=== PATIENT | female | born 1955 | race Caucasian/White ===

== ENCOUNTER 2017-04-11 16:12 | Inpatient (IN) | payer OTHER, SELFPAY ==
[2017-04-11] VITALS (12 sets, daily range): BP systolic 158–187; BP diastolic 78–101; PULSE 72–99; RESP 9–21; TEMP 36.7–36.8; O2SAT 88–98; BMI 42.1
--- NOTE | 2017-04-11 16:35 | RAD_ITS ---
STUDY: X-RAY CHEST REASON FOR EXAM: Female, 62 years old. SOB/DYSPNEA; COPD; H/O PLEURISY, PNEUMONIA MULTIPLE TIMES TECHNIQUE: PA and lateral views of the chest. COMPARISON: January 18, 2016 FINDINGS: The lungs are clear and expanded. There is no demonstrated pleural abnormality. Normal size heart. Normal mediastinum and giorgio. Normal visualized pulmonary arteries. Normal visualized aortic arch and descending thoracic aorta. Normal visualized thoracic spine. Normal visualized ribs, clavicles, and shoulders. There is no demonstrated abnormality of the visualized soft tissue structures of the upper abdomen. RAD/Chest PA and Lateral IMPRESSION: Normal x-ray examination of the chest. Electronically Signed: Nelda Palacios MD at 17:20 EST Tel , Service support ,
--- NOTE | 2017-04-11 17:38 | EKG12_ITS ---
Test Reason : SOB Blood Pressure : / mmHG Vent. Rate : 072 BPM Atrial Rate : 072 BPM P-R Int : 148 ms QRS Dur : 090 ms QT Int : 422 ms P-R-T Axes : 064 063 075 degrees QTc Int : 462 ms Normal sinus rhythm Normal ECG Confirmed by BARBIE FERNANDES, PATRICIA ([id number]), manuscript editor MARIA DE JESUS GIL ([id number] on 04/16/2017 2:23:20 PM Referred By: DARCY Confirmed By:PATRICIA VALENTIN MD
--- NOTE | 2017-04-11 17:44 | ED.DCSUM_ITS ---
- ER Visit Summary Date of Service: 04/11/17 Chief Complaint: Shortness of breath History of Present Illness: The patient is a 62 F who presents with shortness of breath that has been getting gradually worse over the past week. Patient states she has been coughing up some white sputum. Patient states she had a prior prescription for Bactrim with a refill. Patient states she started taking the Bactrim but has not noticed any improvement. Patient states her breathing is worse with any activity. Patient states she can walk approximately 15 feet before she becomes short of breath. Patient denies any chest pain. Patient admits to some rhinorrhea and sore throat. Patient also admits to some postnasal drainage. Patient admits to subjective fever at home but denies any chills. Physical Examination: Vital signs are stable. Patient is afebrile. Patient is in no acute distress. Oral mucosa is pink and moist. Neck is supple. Trachea is midline. Heart was regular rate and rhythm. Lungs showed diffuse expiratory wheezing. There is good respiratory effort noted. There are no retractions noted. Abdomen is soft. Bowel sounds are normal. There is no tenderness noted. Cranial nerves II through XII are intact. There are no focal motor or sensory deficits noted. There is no calf tenderness or swelling. Pedal pulses are equal bilaterally. Test Results: PA and lateral chest x-ray was obtained. There is no acute cardiopulmonary process. D-dimer was obtained and was elevated. CTA of the chest was obtained. There is no evidence of pulmonary embolism or aortic dissection. EKG showed normal sinus rhythm with a rate of 72. There are no acute ST or T-wave changes. Emergency Department Course and Treatment: She was given a DuoNeb here. Patient states she still felt short of breath while walking to the bathroom. Patient was given a repeat albuterol aerosol here. Patient was given a dose of prednisone. Case was discussed with Dr. Terrell. He will admit the patient to his service. Patient understood and was agreeable with the plan. All questions were answered. Disposition: Admit Impression: COPD exacerbation This note was generated with [employer] dictation software. It may contain incorrect words, spelling, and punctuation that were not noted in review of the chart prior to signing ED Disposition - Plan for ED Patient: Disposition: Acute Care Hospital [facility] Chief Complaint: Shortness of Breath Diagnosis: COPD exacerbation Referrals: Delta Mane MD [Primary Care Provider] -
[2017-04-11 18:01] LABS: Absolute Lymphocyte Count 1.08 X10^3/ul (0.83-4.51); Absolute Neutrophil Count 4.5 X10^3/uL (2.0-7.7); Basophil# 0.01 X10^3/uL; Basophil% 0.2 % (0-1); Eosinophil# 0.16 X10^3/uL; Eosinophils% 2.6 % (0-5); Hematocrit 44.9 % (37-47); Hemoglobin 14.8 g/dl (12.0-15.0); Lymphocyte # 1.08 X10^3/ul (4.0); Lymphocyte % 17.7 % (19-41); Mean Corpuscular Hgb 28.6 pg (27.0-32.0); Mean Corpuscular Volume 86.8 fL (81-99); Mean Platelet Vol. 10.1 fl (6.2-12.0); Monocyte# 0.35 X10^3/uL; Monocyte% 5.7 % (0-10); Neutrophil # 4.47 X10^3/uL (2.7-7.7); Neutrophil % 73.5 % (47-70); Platelet Count 264 K/mm3 (150-450); RBC Distribution Width CV 13.7 % (11.6-14.6); RBC Distribution Width SD 43.6 fl (35.1-43.9); Red Blood Count 5.17 M/mm3 (4.2-5.4); White Blood Count 6.1 K/mm3 (4.4-11.0)
[2017-04-11 18:04] LABS: D-Dimer Quantitative (DVT/PE) 0.85 FEU/ug/m (0.27-0.49)
[2017-04-11] MEDS: Ipratropium/Albuterol Sulfate 3 ML AMPUL.NEB INHALATION (18:06)
--- NOTE | 2017-04-11 18:10 | NURSING ---
PER LAB DDIMER 0.85, DR IGLESIAS AWARE.
[2017-04-11 18:17] LABS: Anion Gap 8 (5-15); BUN 16 mg/dL (7-18); Calcium,Total 8.3 mg/dL (8.5-10.1); Chloride 100 mmol/L (98-107); Creatinine, Serum 1.07 mg/dL (0.55-1.02); EST Glomerular Filtration Rate 55 mL/min (>60); Est Glom Filt Rate - Afr Amer 67 mL/min (>60); Estimated Creatinine Clearance 50.38 ml/min; Glucose 119 mg/dL (74-106); Potassium 3.9 mmol/L (3.5-5.1); Sodium Level 133 mmol/L (136-145)
[2017-04-11 18:22] LABS: POSITIVE COUNT NO; POSITIVE DIFFERENTIAL NO; POSITIVE MORPHOLOGY NO
--- NOTE | 2017-04-11 19:48 | CT_ITS ---
STUDY: CTA CHEST REASON FOR EXAM: Female, 62 years old. SOB, COUGH, ELEV DDIMER RADIATION DOSAGE (If Supplied By Facility): CTDIvol = ( 16.15 ) mGy, DLP = ( 748.65 ) mGycm TECHNIQUE: The examination was performed with the intravenous administration of 100ML ml of Isovue 370 contrast material. Post-processing of the angiographic images was performed, with multiplanar reformation and 3D reconstruction. Individualized dose optimization techniques were used for this CT. COMPARISON: CTA chest July 08, 2015, x-ray chest April 11, 2017 FINDINGS: Normal enhancement of the main pulmonary artery and right and left pulmonary arteries. Normal enhancement of the bilateral peripheral pulmonary arteries. There is no demonstrated pulmonary embolism. Normal thoracic aorta and visualized great vessels. There is minimal atherosclerotic plaque seen in association with the aortic arch. There is no demonstrated aortic dissection. Normal heart and pericardium. Normal mediastinum. Normal hilar regions. Normal visualized trachea and bronchi. There is centrilobular emphysema of a moderately severe degree. No focal superimposed infiltrate. Normal pleura. Normal chest wall structures. There are degenerative changes of thoracic spine. Normal visualized upper abdomen. There does appear small Bochdalek hernia on the right into which retroperitoneal fat extends into the inferior right costophrenic angle. CT/CTA Chest W/WO Contrast IMPRESSION: No demonstrated pulmonary embolism or arterial dissection. Emphysema noted. Electronically Signed: Nelda Palacios MD at 22:14 EST Tel , Service support ,
[2017-04-11] MEDS: 0.9% Normal Saline 1,000 ML 1000 ML IV (19:57)
[2017-04-11] MEDS: HYDROcodone Bitartrate/Apap 5/325 Tablet PO (20:02)
[2017-04-11] MEDS: Albuterol 2.5 MG/3 ML VIAL.NEB. INHALATION (23:55)
[2017-04-12] VITALS (14 sets, daily range): BP systolic 141–182; BP diastolic 73–103; PULSE 69–99; RESP 16–24; TEMP 36.5–36.7; O2SAT 94–96; BMI 40.5; BMI 40.6
--- NOTE | 2017-04-12 00:12 | PCM.HP.STD ---
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 (3) Rheumatoid arthritis Status: Chronic (4) COPD (chronic obstructive pulmonary disease) Status: Chronic History of Present Illness Date of Admission: 04/12/17 Chief Complaint: Shortness of breath, wheezing. The patient is a 62 year old F with past medical history as mentioned above presented to the emergency department because of shortness of breath and wheezing of 1 week duration. Her symptoms started around 1 week ago with shortness of breath at rest, progressive, aggravated by activity, associated with wheezing and productive cough with clear sputum and without significant relieving factors. Her symptoms continued to worsen over the last few days. She reported mild sore throat. Denies fever chills. She denied chest pain, palpitation, dizziness or lightheadedness. In the emergency room, her blood pressure was slightly elevated, afebrile, pulse ox was 88% on room air which improved to 94% on 2.5 L. Her routine blood work was remarkable for mild hyponatremia, otherwise normal. Troponin is negative. Chest x-ray showed no acute infiltrate, consolidation or effusion. D-dimer was elevated for which CTA chest done and showed no evidence of PE or dissection, no infiltrate. Patient received oral prednisone, DuoNeb and albuterol inhalation in the ER and she remained short of breath with audible wheezing and hypoxia. She is being admitted for COPD exacerbation with hypoxia. Past Medical History Past Medical History (Chronic Problems): Chronic Problems DVT (deep venous thrombosis) (Chronic) 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 Rheumatoid arthritis (Chronic) COPD (chronic obstructive pulmonary disease) (Chronic) [facility] Allergy (Verified 04/11/17 16:17) Itching Home Medications: Ambulatory Orders Medication Instructions Recorded Hydrocodone Bitart/Apap 5-325 1 tablet PO Q6H PRN PRN 07/08/15 [Kerby 5/325] Naproxen Sodium [Aleve] 440 mg PO Q12H PRN PRN 07/08/15 Albuterol Inhaler [Ventolin Hfa] 2 puff INHALATION Q4H PRN PRN #3 01/21/16 inhaler Cetirizine HCl [Zyrtec] 10 mg PO DAILY 04/11/17 Levothyroxine Sodium 25 mcg PO DAILY 04/11/17 Surgical History: appendectomy, tonsillectomy, - - section, surgery for anal cancer. 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 Review of Systems Constitutional: Denies: Anorexia, Chills, Fever, Weakness Eyes: Denies: Blurred vision, Double vision, Drainage, Redness HEENT: Reports: Sore Throat. Denies: Difficulty Hearing, Ear Pain, Eye Pain, Nasal Congestion Cardiovascular: Denies: Chest Pain, Chest Pressure, Chest Tightness, Heaviness, Light Headedness, Orthopnea, Paroxysmal Noc. Dyspnea, Syncope Respiratory: Reports: Cough, Shortness of Breath, Shortness of breath at rest, Sputum production, Wheezing. Denies: Hemoptysis, Pleuritic Pain Gastrointestinal: Denies: Abdominal Pain, Constipation, Diarrhea, Nausea, Vomiting Genitourinary: Denies: Dysuria, Frequency, Hematuria Musculoskeletal: Denies: Arm Pain, Back Pain, Foot Pain Skin: Denies: Dryness, Rash Neurological: Denies: Balance problems, Double vision, Change in Speech, Slurred speech, Confusion, Headaches, Incoordination, Numbness Psychiatric: Denies: Anxiety, Depression Endocrine: Denies: Change in Body Habitus, Polydipsia VTE Information - Inpt Only VTE Present on Admission: No VTE Mechan Device Prophylaxis: None VTE Pharm Prophylaxis ordered?: Yes Patient Problems: Active and Suspected Problems COPD exacerbation (Acute) - Physical Exam General: Alert, Oriented x3, Cooperative, - - Moderately short of breath with audible wheezing. HEENT: Atraumatic, PERRLA, EOMI Oral: Moist Mucosa, No Gingival or Mucosal Lesions/ Ulcerations Neck: Supple, No JVD, Negative Carotid Bruits, Trachea Midline, Thyroid Normal Size and Texture Lungs: No rhonchi, No rales, Diminished, Short of Breath, Wheezes, - - Diminished breath sounds bilateral, bilateral expiratory wheezes. Cardiovascular: Regular rate, Regular Rhythm, Normal S1, Normal S2, No murmurs, PMI Normal Abdomen: Bowel Sounds Present, Soft, Non Tender, Non-Distended, No Hepato-splenomegaly, Obese Extremities: No clubbing, No cyanosis, No edema Skin: No rashes, No breakdown Lymphatic: No Cervical, Supraclavicular, or Inguinal Adenopathy Neurological: Cranial nerves II-XII grossly intact, Motor Exam 5/5 strength throughout Psych/Mental Status: Normal Affect, Appropriate, Alert and oriented to time, place, person, mood and affect Vital Signs Temp Pulse Resp BP Pulse Ox 98.3 F 79 14 158/96 H 98 04/11/17 23:21 04/11/17 23:55 04/11/17 23:55 04/11/17 23:21 04/11/17 23:21 Laboratory Tests 04/11/17 04/11/17 04/11/17 Range/Units 17:20 17:20 17:20 WBC 6.1 (4.4-11.0) K/mm3 RBC 5.17 (4.2-5.4) M/mm3 Hgb 14.8 (12.0-15.0) g/dl Hct 44.9 (37-47) % MCV 86.8 (81-99) fL MCH 28.6 (27.0-32.0) pg MCHC 33.0 (32-36) g/gl RDW 13.7 (11.6-14.6) % RDW Differential 43.6 (35.1-43.9) fl Plt Count 264 (150-450) K/mm3 MPV 10.1 (6.2-12.0) fl Immature Gran % (Auto) 0.300 (0.0-0.9) % Neut % (Auto) 73.5 H (47-70) % Lymph % (Auto) 17.7 L (19-41) % Miller % (Auto) 5.7 (0-10) % Eos % (Auto) 2.6 (0-5) % Baso % (Auto) 0.2 (0-1) % Absolute Neuts (auto) 4.5 (2.0-7.7) X10^3/uL Absolute Lymphs (auto) 1.08 (0.83-4.51) X10^3/ul Total Counted Not Reportable D-Dimer Quant (PE/DVT) 0.85 H* (0.27-0.49) FEU/ug/m Sodium 133 L (136-145) mmol/L Potassium 3.9 (3.5-5.1) mmol/L Chloride 100 (98-107) mmol/L Carbon Dioxide 25.0 (21.0-32.0) mmol/L Anion Gap 8 (5-15) BUN 16 (7-18) mg/dL Creatinine 1.07 H (0.55-1.02) mg/dL Estim Creat Clear Calc 50.38 ml/min Est GFR (MDRD) Af Amer 67 (>60) mL/min Est GFR (MDRD) Non-Af 55 L (>60) mL/min BUN/Creatinine Ratio 15.0 (10-20) RATIO Glucose 119 H (74-106) mg/dL Calcium 8.3 L (8.5-10.1) mg/dL Troponin I < 0.02 (<0.06) ng/mL Clinical Impression(s) from Imaging Studies Chest X-Ray 04/11/17 16:35 IMPRESSION: Normal x-ray examination of the chest. Electronically Signed: Nelda Palacios MD at 17:20 EST Tel , Service support , Chest CTA 04/11/17 19:48 IMPRESSION: No demonstrated pulmonary embolism or arterial dissection. Emphysema noted. Electronically Signed: Nelda Palacios MD at 22:14 EST Tel , Service support , Assessment/Plan Active and Suspected Problems COPD exacerbation (Acute) This is a 62 years old female patient presented to the emergency room because of shortness of breath, wheezing and cough and she was found to have acute COPD exacerbation with hypoxia. #1 acute COPD exacerbation/hypoxia: Chest x-ray showed no acute findings. CTA chest showed no acute infiltrate. Patient received steroids and bronchodilators in the ER with minimal improvement, still requiring oxygen. She has not been on oxygen at home. Plan: Admit to [facility], DuoNeb every 6 hours, albuterol as needed, IV Solu-Medrol, oral Levaquin, sputum culture, respiratory panel for viruses, incentive spirometer. #2 elevated d-dimer: Unclear etiology. CTA chest negative for PE or dissection. #3 rheumatoid arthritis: At home, she takes only Aleve as needed. Plan for per her as needed, Kerby as needed. #5 hypothyroidism: Continue levothyroxine. #6 history of DVT: This was years ago, completed treatment. #7 DVT prophylaxis: Subcu Lovenox. This note was generated with [employer] dictation software. It may contain incorrect words, spelling, and punctuation that were not noted in checking the note before signing. Code Visit Inpatient E&M: 90091 Init Hosp L3
--- NOTE | 2017-04-12 00:17 | HP.PCM_ITS ---
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 (3) Rheumatoid arthritis Status: Chronic (4) COPD (chronic obstructive pulmonary disease) Status: Chronic History of Present Illness Date of Admission: 04/12/17 Chief Complaint: Shortness of breath, wheezing. The patient is a 62 year old F with past medical history as mentioned above presented to the emergency department because of shortness of breath and wheezing of 1 week duration. Her symptoms started around 1 week ago with shortness of breath at rest, progressive, aggravated by activity, associated with wheezing and productive cough with clear sputum and without significant relieving factors. Her symptoms continued to worsen over the last few days. She reported mild sore throat. Denies fever chills. She denied chest pain, palpitation, dizziness or lightheadedness. In the emergency room, her blood pressure was slightly elevated, afebrile, pulse ox was 88% on room air which improved to 94% on 2.5 L. Her routine blood work was remarkable for mild hyponatremia, otherwise normal. Troponin is negative. Chest x-ray showed no acute infiltrate, consolidation or effusion. D-dimer was elevated for which CTA chest done and showed no evidence of PE or dissection, no infiltrate. Patient received oral prednisone, DuoNeb and albuterol inhalation in the ER and she remained short of breath with audible wheezing and hypoxia. She is being admitted for COPD exacerbation with hypoxia. Past Medical History Past Medical History (Chronic Problems): Chronic Problems DVT (deep venous thrombosis) (Chronic) 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 Rheumatoid arthritis (Chronic) COPD (chronic obstructive pulmonary disease) (Chronic) [facility] Allergy (Verified 04/11/17 16:17) Itching Home Medications: Ambulatory Orders Medication Instructions Recorded Hydrocodone Bitart/Apap 5-325 1 tablet PO Q6H PRN PRN 07/08/15 [Elma 5/325] Naproxen Sodium [Aleve] 440 mg PO Q12H PRN PRN 07/08/15 Albuterol Inhaler [Ventolin Hfa] 2 puff INHALATION Q4H PRN PRN #3 01/21/16 inhaler Cetirizine HCl [Zyrtec] 10 mg PO DAILY 04/11/17 Levothyroxine Sodium 25 mcg PO DAILY 04/11/17 Surgical History: appendectomy, tonsillectomy, - - section, surgery for anal cancer. 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 Review of Systems Constitutional: Denies: Anorexia, Chills, Fever, Weakness Eyes: Denies: Blurred vision, Double vision, Drainage, Redness HEENT: Reports: Sore Throat. Denies: Difficulty Hearing, Ear Pain, Eye Pain, Nasal Congestion Cardiovascular: Denies: Chest Pain, Chest Pressure, Chest Tightness, Heaviness, Light Headedness, Orthopnea, Paroxysmal Noc. Dyspnea, Syncope Respiratory: Reports: Cough, Shortness of Breath, Shortness of breath at rest, Sputum production, Wheezing. Denies: Hemoptysis, Pleuritic Pain Gastrointestinal: Denies: Abdominal Pain, Constipation, Diarrhea, Nausea, Vomiting Genitourinary: Denies: Dysuria, Frequency, Hematuria Musculoskeletal: Denies: Arm Pain, Back Pain, Foot Pain Skin: Denies: Dryness, Rash Neurological: Denies: Balance problems, Double vision, Change in Speech, Slurred speech, Confusion, Headaches, Incoordination, Numbness Psychiatric: Denies: Anxiety, Depression Endocrine: Denies: Change in Body Habitus, Polydipsia VTE Information - Inpt Only VTE Present on Admission: No VTE Mechan Device Prophylaxis: None VTE Pharm Prophylaxis ordered?: Yes Patient Problems: Active and Suspected Problems COPD exacerbation (Acute) - Physical Exam General: Alert, Oriented x3, Cooperative, - - Moderately short of breath with audible wheezing. HEENT: Atraumatic, PERRLA, EOMI Oral: Moist Mucosa, No Gingival or Mucosal Lesions/ Ulcerations Neck: Supple, No JVD, Negative Carotid Bruits, Trachea Midline, Thyroid Normal Size and Texture Lungs: No rhonchi, No rales, Diminished, Short of Breath, Wheezes, - - Diminished breath sounds bilateral, bilateral expiratory wheezes. Cardiovascular: Regular rate, Regular Rhythm, Normal S1, Normal S2, No murmurs, PMI Normal Abdomen: Bowel Sounds Present, Soft, Non Tender, Non-Distended, No Hepato- splenomegaly, Obese Extremities: No clubbing, No cyanosis, No edema Skin: No rashes, No breakdown Lymphatic: No Cervical, Supraclavicular, or Inguinal Adenopathy Neurological: Cranial nerves II-XII grossly intact, Motor Exam 5/5 strength throughout Psych/Mental Status: Normal Affect, Appropriate, Alert and oriented to time, place, person, mood and affect Vital Signs Temp Pulse Resp BP Pulse Ox 98.3 F 79 14 158/96 H 98 04/11/17 23:21 04/11/17 23:55 04/11/17 23:55 04/11/17 23:21 04/11/17 23:21 Laboratory Tests 3 04/11/17 04/11/17 04/11/17 Range/Units 17:20 17:20 17:20 WBC 6.1 (4.4-11.0) K/mm3 RBC 5.17 (4.2-5.4) M/mm3 Hgb 14.8 (12.0-15.0) g/dl Hct 44.9 (37-47) % MCV 86.8 (81-99) fL MCH 28.6 (27.0-32.0) pg MCHC 33.0 (32-36) g/gl RDW 13.7 (11.6-14.6) % RDW Differential 43.6 (35.1-43.9) fl Plt Count 264 (150-450) K/mm3 MPV 10.1 (6.2-12.0) fl Immature Gran % (Auto) 0.300 (0.0-0.9) % Neut % (Auto) 73.5 H (47-70) % Lymph % (Auto) 17.7 L (19-41) % [place] % (Auto) 5.7 (0-10) % Eos % (Auto) 2.6 (0-5) % Baso % (Auto) 0.2 (0-1) % Absolute Neuts (auto) 4.5 (2.0-7.7) X10^3/uL Absolute Lymphs (auto) 1.08 (0.83-4.51) X10^3/ul Total Counted Not Reportable D-Dimer Quant (PE/DVT) 0.85 H* (0.27-0.49) FEU/ug/m Sodium 133 L (136-145) mmol/L Potassium 3.9 (3.5-5.1) mmol/L Chloride 100 (98-107) mmol/L Carbon Dioxide 25.0 (21.0-32.0) mmol/L Anion Gap 8 (5-15) BUN 16 (7-18) mg/dL Creatinine 1.07 H (0.55-1.02) mg/dL Estim Creat Clear Calc 50.38 ml/min Est GFR (MDRD) Af Amer 67 (>60) mL/min Est GFR (MDRD) Non-Af 55 L (>60) mL/min BUN/Creatinine Ratio 15.0 (10-20) RATIO Glucose 119 H (74-106) mg/dL Calcium 8.3 L (8.5-10.1) mg/dL Troponin I < 0.02 (<0.06) ng/mL Clinical Impression(s) from Imaging Studies Chest X-Ray 04/11/17 16:35 IMPRESSION: Normal x-ray examination of the chest. Electronically Signed: Nelda Palacios MD at 17:20 EST Tel , Service support , Chest CTA 04/11/17 19:48 IMPRESSION: No demonstrated pulmonary embolism or arterial dissection. Emphysema noted. Electronically Signed: Nelda Palacios MD at 22:14 EST Tel , Service support , Assessment/Plan Active and Suspected Problems COPD exacerbation (Acute) This is a 62 years old female patient presented to the emergency room because of shortness of breath, wheezing and cough and she was found to have acute COPD exacerbation with hypoxia. #1 acute COPD exacerbation/hypoxia: Chest x-ray showed no acute findings. CTA chest showed no acute infiltrate. Patient received steroids and bronchodilators in the ER with minimal improvement, still requiring oxygen. She has not been on oxygen at home. Plan: Admit to [facility] floor, DuoNeb every 6 hours, albuterol as needed, IV Solu-Medrol, oral Levaquin, sputum culture, respiratory panel for viruses, incentive spirometer. #2 elevated d-dimer: Unclear etiology. CTA chest negative for PE or dissection. #3 rheumatoid arthritis: At home, she takes only Aleve as needed. Plan for per her as needed, Elma as needed. #5 hypothyroidism: Continue levothyroxine. #6 history of DVT: This was years ago, completed treatment. #7 DVT prophylaxis: Subcu Lovenox. This note was generated with [employer] dictation software. It may contain incorrect words, spelling, and punctuation that were not noted in checking the note before signing. Code Visit Inpatient E&M: 78944 Init Hosp L3
[2017-04-12] MEDS: Ipratropium/Albuterol Sulfate 3 ML AMPUL.NEB INHALATION ×4 (01:11→19:18)
[2017-04-12] MEDS: 0.9% Normal Saline 1,000 ML 75 ML IV (01:35)
[2017-04-12] MEDS: Levothyroxine 25 MCG TABLET PO (06:10)
[2017-04-12] MEDS: levoFLOXacin 500 MG Tablet PO (06:10)
[2017-04-12] MEDS: Loratadine 10 MG Tablet PO (08:49)
[2017-04-12] MEDS: Enoxaparin 40 MG/0.4 ML Syringe SC (08:49)
--- NOTE | 2017-04-12 11:30 | PN_ITS ---
Patient Problems: Active and Suspected Problems COPD exacerbation (Acute) Subjective: CC: Shortness of breath Vitals/I&O's: Vital Signs Temp Pulse Resp BP Pulse Ox 98.0 F 79 18 157/73 H 96 04/12/17 08:44 04/12/17 08:44 04/12/17 08:44 04/12/17 08:44 04/12/17 08:44 Oxygen Flow Rate (L/min) 1 Oxygen Delivery Method Nasal Cannula Weight: 114 kg Body Mass Index (BMI) 40.5 Intake and Output for Last 24 Hours 04/10/17 04/11/17 04/12/17 23:59 23:59 23:59 Intake Total 651 / 651 Balance 651 / 651 Microbiology Past 72 Hours 04/12/17 02:45 Sputum, Expectorated/Coughed Gram Stain - Final 04/12/17 01:10 Mucosa - Nasopharyngeal Respiratory Panel (PCR) - Final Human [place] Current Medications Acetaminophen (Tylenol) 650 mg PO Q6H PRN PRN PRN Reason: Fever, headache, pain Hydrocodone Bitart/Acetaminophen ([place] 5mg-325mg) 1 tablet PO Q6H PRN PRN PRN Reason: PAIN Albuterol Sulfate (Ventolin Aerosols) 2.5 mg INHALATION Q2H PRN PRN PRN Reason: Shortness of breath, wheezing Albuterol/Ipratropium (Duoneb) 3 ml INHALATION Q6H.RT [facility] Last Admin: 04/12/17 06:35 Dose: 3 ml Enoxaparin Sodium (Lovenox) 40 mg SC DAILY@1000 [facility] Last Admin: 04/12/17 08:49 Dose: 40 mg Guaifenesin (Robitussin) 10 ml PO Q6H PRN PRN PRN Reason: COUGH/CONGESTION Levofloxacin (Levaquin) 500 mg PO DAILY@0600 [facility] Last Admin: 04/12/17 06:10 Dose: 500 mg Levothyroxine Sodium (Synthroid) 25 mcg PO DAILY@0600 [facility] Last Admin: 04/12/17 06:10 Dose: 25 mcg Loratadine (Claritin) 10 mg PO DAILY [facility] Last Admin: 04/12/17 08:49 Dose: 10 mg Magnesium Hydroxide (Milk Of Magnesia) 30 ml PO DAILY PRN PRN PRN Reason: Constipation Methylprednisolone (Solu-Medrol) 40 mg IV Q8 [facility] Last Admin: 04/12/17 06:10 Dose: 40 mg Ondansetron HCl (Zofran) 4 mg IV Q8H PRN PRN PRN Reason: NAUSEA/VOMITING Assessment/Plan Active and Suspected Problems COPD exacerbation (Acute) 1 acute COPD exacerbation; continue on bronchodilators , IV steroids and antibiotics. 2 respiratory failure with hypoxia; will wean down on supplemental oxygen as tolerated.. 3 rheumatoid arthritis; STABLE. 4. hypothyroidism ; on Levothyroxine. 5. history of DVT; completed treatment. 6. DVT prophylaxis; SC Lovenox. Code Visit Inpatient E&M: 53449 Subs Hosp L2
--- NOTE | 2017-04-12 12:52 | CASEMGMT ---
See RN CM Assessment Link. Pt plans to return home on dc. Does not have home oxygen or nebulizer. If needed, can use any [employer] [facility] ([facility] [place], [facility], [facility]). -Pt is ambulatory, not home bound. -Will need to evaluate for home O2. Luma GABRIELN RN ACM
[2017-04-12] MEDS: guaiFENesin 10 ML UDC (200MG/10ML) PO ×2 (13:32→20:30)
[2017-04-12] MEDS: 0.9% NaCl Peripheral Flush Adult/Peds IV ×2 (13:33→20:29)
[2017-04-12] MEDS: Acetaminophen 325 MG Tablet 650 MG PO (20:29)
[2017-04-13] VITALS (8 sets, daily range): BP systolic 146–151; BP diastolic 69–74; PULSE 67–92; RESP 16–20; TEMP 36.5–36.7; O2SAT 90–96
[2017-04-13] MEDS: Ipratropium/Albuterol Sulfate 3 ML AMPUL.NEB INHALATION ×2 (01:26→07:02)
[2017-04-13] MEDS: Levothyroxine 25 MCG TABLET PO (06:09)
[2017-04-13] MEDS: levoFLOXacin 500 MG Tablet PO (06:09)
[2017-04-13] MEDS: 0.9% NaCl Peripheral Flush Adult/Peds IV (06:09)
--- NOTE | 2017-04-13 09:02 | NURSING ---
Sitting on BSC, coughing continuously. This nurse offered Robitussin, refused at this time. Assisted back into chair so she could finish her breakfast. Dr. Schultz in there now. This nurse will try to weak pt off oxygen and walk in [place] on RA.
--- NOTE | 2017-04-13 09:09 | PCM.DC.SUM ---
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 Rheumatoid arthritis (Chronic) COPD (chronic obstructive pulmonary disease) (Chronic) Hospital Course and Treatment Operations: None Summary of Care Provided: The patient is a 62 year old F presented to the hospital with shortness of breath, wheezing and cough. Chest x-ray did not reveal any pneumonia or congestive heart failure. The patient was placed on bronchodilator therapy , IV steroids and antibiotics and admitted to the hospital. Patient improved with treatment then discharged home on prednisone and Levaquin p.o. The patient was evaluated for home oxygen but did not require supplemental oxygen. exam at the time of discharge; vital signs were stable. she was alert and oriented to time place and person. she did not appear to be any form of distress. S1 and S2 heard no murmur or gallop Lung exam was clear to auscultation with no adventitious sounds. Abdomen was soft nontender with normal bowel sounds. extremity exam did not reveal any edema, palpable pulses bilaterally. Neurologic exam was grossly intact. Discharge Diet: No Restrictions Home Medications: Medications to take at Discharge Hydrocodone Bitart/Apap 5-325 [[place] 5/325] 1 tablet PO Q6H PRN PRN 07/08/15 Naproxen Sodium [Aleve] 440 mg PO Q12H PRN PRN 07/08/15 Albuterol Inhaler [Ventolin Hfa] 2 puff INHALATION Q4H PRN PRN #3 inhaler 01/21/16 Cetirizine HCl [Zyrtec] 10 mg PO DAILY 04/11/17 Levothyroxine Sodium 25 mcg PO DAILY 04/11/17 Guaifenesin [Robitussin] 10 ml PO Q6H PRN PRN #20 udc 04/13/17 Levofloxacin [Levaquin] 500 mg PO DAILY@0600 #5 tab 04/13/17 Prednisone [Deltasone] 40 mg PO DAILY 5 Days #10 tab 04/13/17 Following Prescrptions Were Given to Patient: Guaifenesin [Robitussin] 10 ml PO Q6H PRN PRN #20 udc PRN Reason: COUGH/CONGESTION Levofloxacin [Levaquin] 500 mg PO DAILY@0600 #5 tab Prednisone [Deltasone] 40 mg PO DAILY 5 Days #10 tab Primary Care Physician: Delta Mane MD [Primary Care Provider] - Within 2 Weeks Disposition: Home Patient Condition:: Good Meaningful Use Info Meaningful Use Diagnoses (Choose all that apply): None applicable Code Visit Inpatient E&M: 6[address] [facility]
--- NOTE | 2017-04-13 09:11 | PCM.DC ---
- Discharge Diagnoses Current Active Problems: Current Active and Chronic Problems COPD exacerbation (Acute) You will use the following diet at home:: Regular Discharge Activity: Return to Normal Activity Allergies/Adverse Reactions: Allergies cefadroxil hydrate [From [facility] [place]] Allergy (Verified 04/11/17 16:17) Itching Medications to take at Discharge Hydrocodone Bitart/Apap 5-325 [[place] 5/325] 1 tablet PO Q6H PRN PRN 07/08/15 Naproxen Sodium [Aleve] 440 mg PO Q12H PRN PRN 07/08/15 Albuterol Inhaler [Ventolin Hfa] 2 puff INHALATION Q4H PRN PRN #3 inhaler 01/21/16 Cetirizine HCl [Zyrtec] 10 mg PO DAILY 04/11/17 Levothyroxine Sodium 25 mcg PO DAILY 04/11/17 Guaifenesin [Robitussin] 10 ml PO Q6H PRN PRN #20 udc 04/13/17 Levofloxacin [Levaquin] 500 mg PO DAILY@0600 #5 tab 04/13/17 Prednisone [Deltasone] 40 mg PO DAILY 5 Days #10 tab 04/13/17 The following prescriptions were given: Guaifenesin [Robitussin] 10 ml PO Q6H PRN PRN #20 udc PRN Reason: COUGH/CONGESTION Levofloxacin [Levaquin] 500 mg PO DAILY@0600 #5 tab Prednisone [Deltasone] 40 mg PO DAILY 5 Days #10 tab Primary Care Physician: Delta Mane MD [Primary Care Provider] - Within 2 Weeks Proposed Discharge Date: 04/13/17
[2017-04-13] MEDS: Loratadine 10 MG Tablet PO (10:13)
[2017-04-13] MEDS: Enoxaparin 40 MG/0.4 ML Syringe SC (10:13)
--- NOTE | 2017-04-13 12:24 | CASEMGMT ---
Discussed discharge planning. Home oxygen testing completed, pt does not need home oxygen. Declines Home health. Plan is to follow up with her PCP on dc. Appt will be made with Dr. Mane's office and they will notify pt. Luma OLSEN RN ACM
== END 2017-04-13 11:25 | disposition home or self-care (01) | DRG 190 ==
LOC: ED 17:59 → MS2 04-12 00:01
PROVIDERS: Admitting Provider Hospitalist; Emergency Provider Emergency Medicine; Family Provider Family Medicine; PCP Family Medicine; Visit Provider Internal Medicine
DX: J44.1 Chronic obstructive pulmonary disease with (acute) exacerbation (principal); J96.91 Respiratory failure, unspecified with hypoxia; Z68.41 Body mass index [BMI] 40.0-44.9, adult; M06.9 Rheumatoid arthritis, unspecified; E03.9 Hypothyroidism, unspecified; F17.200 Nicotine dependence, unspecified, uncomplicated; Z86.718 Personal history of other venous thrombosis and embolism; Z92.3 Personal history of irradiation; Z92.21 Personal history of antineoplastic chemotherapy; Z85.048 Personal history of other malignant neoplasm of rectum, rectosigmoid junction, and anus; E66.9 Obesity, unspecified
CPT/HCPCS: 71046; 71275; 80048; 84484; 85025; 85379; 87070; 87205; 87633; 93005; 94640; 94760; 99283; 99406; J7030; Q9967; A4216

== ENCOUNTER 2018-09-03 10:00 | Outpatient (RCR) | payer OTHER, SELFPAY ==
[2018-08-22 14:08] VITALS: BP 153/91; PULSE 80; RESP 18; TEMP 37; BMI 40.8
--- NOTE | 2018-08-22 17:38 | PCM.WC.HP ---
(1) Nonhealing ulcer of left lower extremity with fat layer exposed Status: Acute Current Visit: Yes Code(s): L97.922 - Non-pressure chronic ulcer of unspecified part of left lower leg with fat layer exposed (2) Anal squamous cell carcinoma Status: Chronic Current Visit: Yes Code(s): C21.0 - Malignant neoplasm of anus, unspecified Comment: status post surgery, chemotherapy and radiation. (3) Rheumatoid arthritis Status: Chronic Current Visit: Yes Code(s): M06.9 - Rheumatoid arthritis, unspecified (4) COPD (chronic obstructive pulmonary disease) Status: Chronic Current Visit: No Code(s): J44.9 - Chronic obstructive pulmonary disease, unspecified (5) Bilateral lower extremity edema Status: Acute Current Visit: Yes Code(s): R60.0 - Localized edema (6) Decreased dorsalis pedis pulse Status: Acute Current Visit: Yes Code(s): R09.89 - Other specified symptoms and signs involving the circulatory and respiratory systems History of Present Illness Date of Service: 08/22/18 Chief Complaint: Nonhealing ulcer to left lower extremity for 3 months status post traumatic injury. History of Wound: This is a 63-year-old white female with a past medical history as listed above who presents to the wound healing center today with complaint of nonhealing ulcer to left lateral lower extremity for 3 months.She does have a past medical history of rectal cancer, rheumatoid arthritis, PVD, CAD, and osteopenia. She is a current 1 pack/day smoker. She notes that initially she fell on 06/28 and hit the left lower leg on a metal object. She states that at the time there was no opening in the skin. However shortly after a scab. And then the skin opened up. She states that she has been seen by her primary care provider over the past couple weeks who is placed her on a course of Bactrim DS and that she has been utilizing Bactroban ointment daily and covering with gauze. She denies any heavy drainage from the site and denies any redness, fever, chills, warmth, chest pain or pressure, syncope or presyncopal episodes. 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 Rheumatoid arthritis (Chronic) COPD (chronic obstructive pulmonary disease) (Chronic) Surgical History: appendectomy, tonsillectomy, - - section, surgery for anal cancer. Allergies/Adverse Reactions: [place]ies [place] [facility] [place] Allergy (Verified 04/11/17 16:17) Itching Home Medications: Ambulatory Orders Medication Instructions Recorded Hydrocodone Bitart/Apap 5-325 1 tablet PO Q6H PRN PRN 07/08/15 [[place] 5/325] Naproxen Sodium [Aleve] 440 mg PO Q12H PRN PRN 07/08/15 Albuterol Inhaler [Ventolin Hfa] 2 puff INHALATION Q4H PRN PRN #3 01/21/16 inhaler Cetirizine HCl [Zyrtec] 10 mg PO DAILY 04/11/17 Levothyroxine Sodium 25 mcg PO DAILY 04/11/17 Guaifenesin [Robitussin] 10 ml PO Q6H PRN PRN #20 udc 04/13/17 Prednisone [Deltasone] 40 mg PO DAILY 5 Days #10 tab 04/13/17 levoFLOXacin tablet [Levaquin 500 mg PO DAILY@0600 #5 tab 04/13/17 tablet] - Family History Maternal - - mother with short term memory problems Paternal - - of pneumonia and has copd. Smoking Status: Current some day smoker Review of Systems Constitutional: Denies: Chills, Fever, Weight Change Eyes: Denies: Pain, Vision Change HEENT: Denies: Difficulty Hearing, Difficulty Swallowing, Sinus Congestion Cardiovascular: Denies: Chest Pain, Palpitations Respiratory: Denies: Cough, Shortness of Breath Gastrointestinal: Denies: Diarrhea, Nausea, Vomiting Genitourinary: Denies: Dysuria, Hematuria Skin: Reports: Wounds - See HPI Endocrine: Denies: Heat/ Cold Intolerance, Polydipsia, Polyuria Hematologic/ Lymphatic: Denies: Easy Bruising, Easy Bleeding - Physical Exam Vital Signs Temp Pulse Resp BP 98.6 F 80 18 153/91 H 08/22/18 14:08 08/22/18 14:08 08/22/18 14:08 08/22/18 14:08 General: Alert, Oriented x3, Cooperative, No apparent distress HEENT: Atraumatic, PERRLA, EOMI Oral: Moist Mucosa Neck: Supple, No JVD Lungs: Clear to auscultation, Normal air movement, No rhonchi, No wheeze, No rales Cardiovascular: Regular rate, Regular Rhythm, Normal S1, Normal S2, No murmurs Abdomen: Soft, Non Tender, Obese Extremities: No clubbing, No cyanosis, Capillary Refill Less than 3 Seconds, Diminished Peripheral Pulses - Dorsal pedis pulses present bilaterally, Edema - Generalized bilateral lower extremity edema Skin: Ulcer/ Wound - Circular ulceration noted to the left lateral lower extremity with adherent slough to the wound bed. There is undermining present from 5 to 7 PM. No fluctuance, erythema, warmth, streaking, or other signs of infection present at this time. Wound Measurements and Assessment WC - Nurse 1 - General Ulcer Measurement Start: 08/22/18 14:06 Freq: Status: Active Protocol: Activity Type Activity Date Activity User E-Sign Co-Sign Detail Recorded Client Recorded Date Recorded By Document 08/22/18 14:08 DV [id number] 08/22/18 14:26 DV 08/22/18 14:08 Wound Center Nurse 1 [Ulcer Assessment] #3 Lateral LLE -Combined with other wound No -Current Size (cm) - Length 1.4 -Current Size (cm) - Width 1.4 -Current Size (cm) - Depth 0.4 -Total Square Cm 1.96 -Photo Taken Yes -Epithelialization None Present -Tunneling No -Undermining/Tunneling No -Circular Undermining No -Classification - Thickness Full Thickness without Exposed Support Structure -Exudate Amt Large -Exudate Type Yellow/Green -Wound Margin Thickened -Granulation Amt None Present (0 %) -Granulation Quality N/A -Slough/Fibrin Yes -Necrosis Amt Large (67-100%) -Necrotic Tissue Type Adherent Slough -Structure Exposed None/Limited to Skin Breakdown -Texture (Veronica-wound Skin Appearance) Assessed, Localized Edema ,Scarring -Moisture (Veronica-wound Skin Appearance Assessed, ) Weeping -Color (Veronica-wound Skin Appearance) Assessed, Erythema -Temperature (Veronica-wound Skin No Abnormality Appearance) (Pt Warm) -Tenderness on Palpation (Veronica-wound Yes Skin Appearance) -Ulcer Cleansing Rinsed/ Irrigated with Saline -Foul Odor after Cleansing Yes -Anesthetic Used 5% Lidocaine Gel [Edema Assessment] -Lower Limb Edema Present Yes -Right Calf (cm) 37.0 -Right Ankle (cm) 23.5 -Left Calf (cm) 40.0 -Left Ankle (cm) 24.0 WC - Nurse 2 - General Ulcer CM Notes Start: 08/22/18 14:06 Freq: Status: Active Protocol: Activity Type Activity Date Activity User E-Sign Co-Sign Detail Recorded Client Recorded Date Recorded By Document 08/22/18 15:03 AN [id number] 08/22/18 15:16 AN 08/22/18 15:03 Wound Center Nurse 2 [Procedure/Treatment] #3 Lateral LLE -Time 15:04 -Correct Patient Yes -Correct Side, Site, Position Yes -Correct Procedure Yes -Procedure Performed Yes -Type of Procedure Debridement -Clinical Debridement Subcutaneous -Post Debridement Size (cm) - Length 1.5 -Post Debridement Size (cm) - Width 1.5 -Post Debridement Size (cm) - Depth 0.5 -Total Square Cm 2.25 -Wound/Ulcer Outcome Not Healed -Ulcer Cleansing Rinsed/ Irrigated with Saline -Foul Odor after Cleansing No -Bioengineered Tissue No -Bleeding Controlled with Pressure -Offloading No -Treatment Response Procedure Tolerated Well [See Physician Procedure note for Specifics] Pain Scale: 0-10 Numeric [Pain] -Is Patient Pain Free? Yes Musculoskeletal: - - Significant arthritic changes present bilateral upper extremities and bilateral lower extremities Neurological: Neuro grossly intact Psych/Mental Status: Normal Affect, Appropriate, Alert and oriented to time, place, person, mood and affect Debridement Note Post-Debridement Measurements/Treatment - Nurse 2 - General Ulcer CM Notes Start: 08/22/18 14:06 Freq: Status: Active Protocol: Activity Type Activity Date Activity User E-Sign Co-Sign Detail Recorded Client Recorded Date Recorded By Document 08/22/18 15:03 AN [id number] 08/22/18 15:16 AN 08/22/18 15:03 Wound Center Nurse 2 #3 Lateral LLE -Time 15:04 -Correct Patient Yes -Correct Side, Site, Position Yes -Correct Procedure Yes -Procedure Performed Yes -Type of Procedure Debridement -Clinical Debridement Subcutaneous -Post Debridement Size (cm) - Length 1.5 -Post Debridement Size (cm) - Width 1.5 -Post Debridement Size (cm) - Depth 0.5 -Total Square Cm 2.25 -Wound/Ulcer Outcome Not Healed -Ulcer Cleansing Rinsed/ Irrigated with Saline -Foul Odor after Cleansing No -Bioengineered Tissue No -Bleeding Controlled with Pressure -Offloading No -Treatment Response Procedure Tolerated Well Pain Scale: 0-10 Numeric Is Patient Pain Free? Yes Wound debrided: Left lower extremity ulceration (suspect venous and arterial etiology) Laterality: Left Type of Debridement: Excisional debridement Anesthesia Used: 5% Lidocaine Gel Depth: in the subcutaneous layer Percentage of wound debrided: 100 Instrument Used: 5mm curette Tissue Removed: Slough and devitalized tissue Severity: Fat Layer Exposed Amount of bleeding with debridement: Mild Bleeding Controlled with: Pressure Patient tolerated procedure well Assessment/Plan Active Problems Nonhealing ulcer of left lower extremity with fat layer exposed (Acute) Bilateral lower extremity edema (Acute) Decreased dorsalis pedis pulse (Acute) 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 Rheumatoid arthritis (Chronic) Assessment: See above diagnoses Plan: The patient was seen and examined at the wound center today and was updated on the plan of care. A subcutaneous debridement was performed today. The patient tolerated the procedure well. The patients wound care will consist of: Applying Aquacel Ag daily with Tubigrip for compression. Given the delayed wound healing in fact that she has failed greater than 4 weeks of standard wound therapy from her primary care provider, will apply for the use of an advanced skin substitute product. Due to the depth of the wound will apply for snapvac. Wound cultures were collected. Baseline bloodwork ordered. Vascular studies ordered. Patient educated on the importance of diet on wound healing and instructed to increase protein and vitamin C intake. Patient has been advised to elevate lower extremities as much as possible. Elevation is to be implemented during daytime hours and legs are to be elevated to heart level, or higher, as much as possible. Prolonged idle sitting has been discouraged. Activity and ambulation has been encouraged. Patient verbalized understanding. Patient will follow up at wound healing center in one week or sooner if needed. This note was generated with [employer] dictation software. It may contain incorrect words, spelling, and punctuation that were not noted in checking the note before signing. Code Visit Office Visits / Consults: [id number] OV L4 New [id number]: [id number] Lily subq tissue 20 sq cm/<
[2018-08-23 12:37] LABS: M R Staph aureus DNA By PCR Negative (Negative); Probe Check PASS; Specimen Processing Control PASS; Staph aureus DNA By PCR NEGATIVE (Negative)
[2018-08-29 14:04] VITALS: RESP 20; TEMP 36.3; BMI 40.8
[2018-08-29 17:12] LABS: Absolute Lymphocyte Count 1.21 X10^3/uL (0.83-4.51); Absolute Neutrophil Count 4.6 X10^3/uL (2.0-7.7); Basophil# 0.01 X10^3/uL; Basophil% 0.2 % (0-1); Eosinophil# 0.25 X10^3/uL; Eosinophils% 3.9 % (0-5); Hemoglobin 14.6 g/dL (12.0-15.0); Lymphocyte # 1.21 X10^3/ul (4.0); Lymphocyte % 18.8 % (19-41); Mean Corp Hgb Conc 31.7 g/dL (32-36); Mean Corpuscular Hgb 27.7 pg (27.0-32.0); Mean Corpuscular Volume 87.3 fL (81-99); Mean Platelet Vol. 10.3 fl (6.2-12.0); Monocyte# 0.35 X10^3/uL; Monocyte% 5.4 % (0-10); NRBC Flagged by Analyzer 0 % (0-5); Neutrophil # 4.59 X10^3/uL (2.7-7.7); Neutrophil % 71.2 % (47-70); Platelet Count 318 K/mm3 (150-450); RBC Distribution Width CV 14.9 % (11.6-14.6); RBC Distribution Width SD 47.8 fl (35.1-43.9); Red Blood Count 5.27 M/mm3 (4.2-5.4); White Blood Count 6.4 K/mm3 (4.4-11.0)
[2018-08-29 17:45] LABS: Erythrocyte Sedimentation Rate 32 mm/hr (0-30)
[2018-08-29 17:59] LABS: Anion Gap 8 (5-15); BUN 13 mg/dL (7-18); BUN/Creat Ratio 13.1 RATIO (10-20); Calcium,Total 8.4 mg/dL (8.5-10.1); Chloride 107 mmol/L (98-107); Creatinine, Serum 0.99 mg/dL (0.55-1.02); EST Glomerular Filtration Rate 60 mL/min (>60); Est Glom Filt Rate - Afr Amer 72 mL/min (>60); Estimated Creatinine Clearance 53.74 ml/min; Glucose 98 mg/dL (74-106); Potassium 4.3 mmol/L (3.5-5.1); Prealbumin 18.4 mg/dL (20.0-40.0); Sodium Level 139 mmol/L (136-145)
--- NOTE | 2018-08-29 19:53 | PCM.WC.PN ---
(1) Nonhealing ulcer of left lower extremity with fat layer exposed Status: Acute Current Visit: Yes Code(s): L97.922 - Non-pressure chronic ulcer of unspecified part of left lower leg with fat layer exposed (2) Anal squamous cell carcinoma Status: Chronic Current Visit: Yes Code(s): C21.0 - Malignant neoplasm of anus, unspecified Comment: status post surgery, chemotherapy and radiation. (3) Rheumatoid arthritis Status: Chronic Current Visit: Yes Code(s): M06.9 - Rheumatoid arthritis, unspecified (4) COPD (chronic obstructive pulmonary disease) Status: Chronic Current Visit: No Code(s): J44.9 - Chronic obstructive pulmonary disease, unspecified (5) Bilateral lower extremity edema Status: Acute Current Visit: Yes Code(s): R60.0 - Localized edema (6) Decreased dorsalis pedis pulse Status: Acute Current Visit: Yes Code(s): R09.89 - Other specified symptoms and signs involving the circulatory and respiratory systems Type of Wound Date of Service: 08/29/18 Chief Complaint: Nonhealing ulcer to left lower extremity for 3 months status post traumatic injury. History of Wound: This is a 63-year-old white female with a past medical history as listed above who presents to the wound healing center today with complaint of nonhealing ulcer to left lateral lower extremity for 3 months.She does have a past medical history of rectal cancer, rheumatoid arthritis, PVD, CAD, and osteopenia. She is a current 1 pack/day smoker. She notes that initially she fell on 06/28 and hit the left lower leg on a metal object. She states that at the time there was no opening in the skin. However shortly after a scab. And then the skin opened up. She states that she has been seen by her primary care provider over the past couple weeks who is placed her on a course of Bactrim DS and that she has been utilizing Bactroban ointment daily and covering with gauze. She denies any heavy drainage from the site and denies any redness, fever, chills, warmth, chest pain or pressure, syncope or presyncopal episodes. Progress of Wound: Ulceration appears clean with minor amount of slough. Microbiology was reviewed and showed staph epidermidis, most likely skin contaminant. No indication for antibiotics at this time. Patient notes no worsening pain and no increase in pain or drainage. - Physical Exam Vital Signs Temp Pulse Resp BP 97.3 F L 80 20 H 153/91 H 08/29/18 14:04 08/22/18 14:08 08/29/18 14:04 08/22/18 14:08 General: Alert, Oriented x3, Cooperative, No apparent distress HEENT: Atraumatic Lungs: Clear to auscultation Cardiovascular: Regular rate Abdomen: Soft, Non Tender Extremities: No clubbing, No cyanosis, Edema - Generalized bilateral lower extremity edema Skin: Ulcer/ Wound - ulcer 2 left lower extremity with adherent slough the wound bed, otherwise no signs of infection at this time. No warmth redness or streaking. Wound Measurements and Assessment WC - Nurse 1 - General Ulcer Measurement Start: 08/22/18 14:06 Freq: Status: Active Protocol: Activity Type Activity Date Activity User E-Sign Co-Sign Detail Recorded Client Recorded Date Recorded By Document 08/29/18 14:04 [facility] [id number] 08/29/18 14:12 [facility] 08/29/18 14:04 Wound Center Nurse 1 [Ulcer Assessment] #3 Lateral LLE -Combined with other wound No -Current Size (cm) - Length 1.6 -Current Size (cm) - Width 1.6 -Current Size (cm) - Depth 0.4 -Total Square Cm 2.56 -Photo Taken No -Epithelialization None Present -Tunneling No -Undermining/Tunneling No -Circular Undermining No -Exudate Amt Medium -Exudate Type Serous -Wound Margin Distinct, Outline Attached -Granulation Amt Small (1-33%) -Granulation Quality Red -Slough/Fibrin Yes -Necrosis Amt Large (67-100%) -Necrotic Tissue Type Adherent Slough -Texture (Veronica-wound Skin Appearance) Assessed, Scarring -Moisture (Veronica-wound Skin Appearance Assessed ) -Color (Veronica-wound Skin Appearance) Assessed, Erythema -Temperature (Veronica-wound Skin No Abnormality Appearance) (Pt Warm) -Tenderness on Palpation (Veronica-wound No Skin Appearance) -Ulcer Cleansing Rinsed/ Irrigated with Saline -Foul Odor after Cleansing No -Anesthetic Used 5% Lidocaine Gel [Edema Assessment] -Lower Limb Edema Present Yes -Left Calf (cm) 38 -Left Ankle (cm) 23.5 WC - Nurse 2 - General Ulcer CM Notes Start: 08/22/18 14:06 Freq: Status: Active Protocol: Activity Type Activity Date Activity User E-Sign Co-Sign Detail Recorded Client Recorded Date Recorded By Document 08/29/18 15:29 AN [id number] 08/29/18 15:38 AN 08/29/18 15:29 Wound Center Nurse 2 [Procedure/Treatment] #3 Lateral LLE -Time 15:37 -Correct Patient Yes -Correct Side, Site, Position Yes -Correct Procedure Yes -Procedure Performed Yes -Type of Procedure Debridement -Clinical Debridement Subcutaneous -Post Debridement Size (cm) - Length 1.9 -Post Debridement Size (cm) - Width 1.7 -Post Debridement Size (cm) - Depth 0.6 -Total Square Cm 3.23 -Wound/Ulcer Outcome Not Healed -Ulcer Cleansing Rinsed/ Irrigated with Saline -Foul Odor after Cleansing No -Bioengineered Tissue No -Bleeding Controlled with Pressure -Offloading No -Treatment Response Procedure Not Tolerated Well [See Physician Procedure note for Specifics] Pain Scale: 0-10 Numeric [Pain] -Is Patient Pain Free? Yes Musculoskeletal: No Muscle Wasting Neurological: Neuro grossly intact Psych/Mental Status: Normal Affect, Appropriate, Alert and oriented to time, place, person, mood and affect Debridement Note Post-Debridement Measurements/Treatment WC - Nurse 2 - General Ulcer CM Notes Start: 08/22/18 14:06 Freq: Status: Active Protocol: Activity Type Activity Date Activity User E-Sign Co-Sign Detail Recorded Client Recorded Date Recorded By Document 08/22/18 15:03 AN [id number] 08/22/18 15:16 AN Document 08/29/18 15:29 AN [id number] 08/29/18 15:38 AN 08/22/18 08/29/18 15:03 15:29 Wound Center Nurse 2 #3 Lateral LLE -Time 15:04 15:37 -Correct Patient Yes Yes -Correct Side, Site, Position Yes Yes -Correct Procedure Yes Yes -Procedure Performed Yes Yes -Type of Procedure Debridement Debridement -Clinical Debridement Subcutaneous Subcutaneous -Post Debridement Size (cm) - Length 1.5 1.9 -Post Debridement Size (cm) - Width 1.5 1.7 -Post Debridement Size (cm) - Depth 0.5 0.6 -Total Square Cm 2.25 3.23 -Wound/Ulcer Outcome Not Healed Not Healed -Ulcer Cleansing Rinsed/ Rinsed/ Irrigated with Irrigated with Saline Saline -Foul Odor after Cleansing No No -Bioengineered Tissue No No -Bleeding Controlled with Pressure Pressure -Offloading No No -Treatment Response Procedure Procedure Not Tolerated Well Tolerated Well Pain Scale: 0-10 Numeric Is Patient Pain Free? Yes Yes Wound debrided: Nonhealing ulcer to left lower extremity Type of Debridement: Excisional debridement Anesthesia Used: 5% Lidocaine Gel Depth: in the subcutaneous layer Percentage of wound debrided: 100 Instrument Used: 5mm curette Tissue Removed: Slough and devitalized tissue Severity: Fat Layer Exposed Amount of bleeding with debridement: Mild Bleeding Controlled with: Pressure Patient tolerated procedure well Assessment/Plan Active Problems Nonhealing ulcer of left lower extremity with fat layer exposed (Acute) Bilateral lower extremity edema (Acute) Decreased dorsalis pedis pulse (Acute) 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 Rheumatoid arthritis (Chronic) Assessment: See above diagnoses Plan: The patient was seen and examined at the wound center today and was updated on the plan of care. A subcutaneous debridement was performed today. The patient tolerated the procedure well. The patients wound care will consist of: Applying snap VAC changing twice weekly with Tubigrip for compression. Given the delayed wound healing in fact that she has failed greater than 4 weeks of standard wound therapy from her primary care provider, will apply for the use of an advanced skin substitute product.Wound cultures skin contaminants of staph epidermidis, no indication for antibiotic. Baseline bloodwork pending. Vascular studies ordered. Patient educated on the importance of diet on wound healing and instructed to increase protein and vitamin C intake. Patient has been advised to elevate lower extremities as much as possible. Elevation is to be implemented during daytime hours and legs are to be elevated to heart level, or higher, as much as possible. Prolonged idle sitting has been discouraged. Activity and ambulation has been encouraged. Patient verbalized understanding. Patient will follow up at wound healing center in one week or sooner if needed. This note was generated with [employer] dictation software. It may contain incorrect words, spelling, and punctuation that were not noted in checking the note before signing. Code Visit 111xxx-113xx: [id number] Lily subq tissue 20 sq cm/<
[2018-09-02 13:01] VITALS: BP 171/96; PULSE 81; RESP 22; TEMP 36.4; BMI 40.8
--- NOTE | 2018-09-03 10:01 | ART_ITS ---
Reason For Study: Edema Left Segmental Pressures Left brachial= 170mmHg. Left posterior tibial artery = 181mmHg. Left dorsalis pedis artery = 191mmHg. Left digit = 128 mmHg. The left dorsalis pedis waveforms are triphasic. The left posterior tibial artery waveforms are triphasic. Right Segmental Pressures Right brachial= 174mmHg. Right posterior tibial artery = 199mmHg. Right dorsalis pedis artery = 169mmHg. Right digit = 135 mmHg. The right dorsalis pedis waveforms are triphasic. The right posterior tibial artery waveforms are triphasic. Indices The right ankle brachial index by the dorsalis pedis is 0.97. The right ankle brachial index by the posterior tibial artery is 1.14. The right digital-brachial index is 0.78. The left ankle brachial index by the dorsalis pedis is 1.10. The left ankle brachial index by the posterior tibial artery is 1.04. The left digital-brachial index is 0.74. Interpretation Summary Triphasic Doppler waveforms are noted at ankle level bilaterally. Pulse-volume recording waveform amplitudes appear satisfactory bilaterally. Resting ankle-brachial indices are normal bilaterally. Digital-brachial indices are normal bilaterally. There is no evidence of significant arterial occlusive disease in the lower extremities bilaterally. Ordering Physician: Faisal He Referring Physician: Delta Mane M.D. Performed By: Larissa Mo RVT
--- NOTE | 2018-09-03 10:01 | VDLE_ITS ---
Reason For Study: Edema RIGHT LEFT CFV is compressible, spontaneous, phasic, CFV is compressible, spontaneous, phasic, competent and demonstrates normal competent, and demonstrates normal augmentation. augmentation. FV is compressible, spontaneous, phasic, FV is compressible, spontaneous, phasic, competent and demonstrates normal competent and demonstrates normal augmentation. augmentation. POP V is compressible, spontaneous, phasic, POP V is compressible, spontaneous, phasic, competent and demonstrates normal competent and demonstrates normal augmentation. augmentation. T/P Trunk is compressible. T/P Trunk is compressible. PTV is compressible. PTV is compressible. RT PerV is compressible. LT PerV is compressible. SFJ is competent and measures 0.63 x 0.63cm. SFJ is competent and measures 0.59 x 0.55 cm. GSV is competent and measures 0.42 x 0.44 cm GSV is competent and measures 0.32 x 0.38 cm in prox thing and 0.37 x 0.40 cm at knee. in prox thigh and 0.41 x 0.46 cm at knee. SSV is competent and measures 0.09 x 0.11 cm. SSV is competent and measures 0.12 x 0.12 cm. Procedure Exam performed in department. A preliminary report was called and/or faxed to [facility]. Interpretation Summary Deep veins of the lower extremities are bilaterally patent and compressible segmentally. There is no evidence of deep vein thrombosis on either side. Valvular competence appears intact within the proximal deep venous systems bilaterally. The greater saphenous veins appear bilaterally patent and compressible segmentally. Sapheno-femoral junctions are bilaterally competent . Valvular competence appears to be intact segmentally within the greater saphenous veins bilaterally. Small saphenous veins are patent and competent bilaterally. Ordering Physician: Faisal He Referring Physician: Delta Mane M.D. Performed By: Willinger, Larissa, RVT
== END 2018-09-04 23:59 ==
LOC: CVS 10:00
PROVIDERS: Family Provider Family Medicine; PCP Family Medicine; Referring Provider Nurse Practitioner Family; Visit Provider Nurse Practitioner Family
DX: L97.822 Non-pressure chronic ulcer of other part of left lower leg with fat layer exposed (principal); M06.9 Rheumatoid arthritis, unspecified; C21.0 Malignant neoplasm of anus, unspecified; R60.0 Localized edema; J44.9 Chronic obstructive pulmonary disease, unspecified; F17.200 Nicotine dependence, unspecified, uncomplicated; I25.10 Atherosclerotic heart disease of native coronary artery without angina pectoris; I73.9 Peripheral vascular disease, unspecified
CPT/HCPCS: 11042; 36415; 80048; 84134; 85025; 85652; 86140; 87070; 87075; 87077; 87186; 87205; 87640; 93923; 93970; 97605; 97607; 99202; 99212; G0463

== ENCOUNTER 2018-10-03 14:45 | Outpatient (RCR) | payer OTHER, SELFPAY ==
[2018-09-02 13:01] VITALS: BMI 40.8
[2018-09-05 01:12] VITALS: BP 171/96; PULSE 81; RESP 22; TEMP 36.4
[2018-09-05 16:01] VITALS: BP 167/101; PULSE 95; RESP 18; TEMP 36.1; BMI 40.8
--- NOTE | 2018-09-05 18:14 | PCM.WC.PN ---
(1) Bilateral lower extremity edema Status: Acute Current Visit: Yes Code(s): R60.0 - Localized edema (2) Decreased dorsalis pedis pulse Status: Acute Current Visit: No Code(s): R09.89 - Other specified symptoms and signs involving the circulatory and respiratory systems (3) Nonhealing ulcer of left lower extremity with fat layer exposed Status: Acute Current Visit: Yes Code(s): L97.922 - Non-pressure chronic ulcer of unspecified part of left lower leg with fat layer exposed (4) COPD (chronic obstructive pulmonary disease) Status: Chronic Current Visit: No Code(s): J44.9 - Chronic obstructive pulmonary disease, unspecified (5) Rheumatoid arthritis Status: Chronic Current Visit: No Code(s): M06.9 - Rheumatoid arthritis, unspecified Type of Wound Date of Service: 09/05/18 Chief Complaint: Nonhealing ulcer to left lower extremity for 3 months status post traumatic injury. History of Wound: This is a 63-year-old white female with a past medical history as listed above who presents to the wound healing center today with complaint of nonhealing ulcer to left lateral lower extremity for 3 months.She does have a past medical history of rectal cancer, rheumatoid arthritis, PVD, CAD, and osteopenia. She is a current 1 pack/day smoker. She notes that initially she fell on 06/28 and hit the left lower leg on a metal object. She states that at the time there was no opening in the skin. However shortly after a scab. And then the skin opened up. She states that she has been seen by her primary care provider over the past couple weeks who is placed her on a course of Bactrim DS and that she has been utilizing Bactroban ointment daily and covering with gauze. She denies any heavy drainage from the site and denies any redness, fever, chills, warmth, chest pain or pressure, syncope or presyncopal episodes. Progress of Wound: Ulceration appears clean with minor amount of slough. Microbiology was reviewed and showed staph epidermidis, most likely skin contaminant. No indication for antibiotics at this time. Patient notes no worsening pain and no increase in pain or drainage. - Physical Exam Vital Signs Temp Pulse Resp BP 96.9 F L 95 18 167/101 H 09/05/18 16:09/05/18 16:01 09/05/18 16:01 09/05/18 16:01 General: Alert, Oriented x3, Cooperative, No apparent distress HEENT: Atraumatic Oral: Moist Mucosa Lungs: Clear to auscultation Cardiovascular: Regular rate Abdomen: Soft, Non Tender, Obese Extremities: No clubbing, No cyanosis, Edema - Generalized bilateral lower extremity edema Skin: Ulcer/ Wound - Ulceration to left lateral lower extremity with small amount of adherent slough, depth is improving with this snap vac Wound Measurements and Assessment WC - Nurse 1 - General Ulcer Measurement Start: 09/05/18 16:00 Freq: Status: Active Protocol: Activity Type Activity Date Activity User E-Sign Co-Sign Detail Recorded Client Recorded Date Recorded By Document 09/05/18 16:01 DL [id number] 09/05/18 16:09 DL 09/05/18 16:01 Wound Center Nurse 1 [Ulcer Assessment] #3 Lateral LLE -Current Size (cm) - Length 1.8 -Current Size (cm) - Width 1.7 -Current Size (cm) - Depth 0.2 -Total Square Cm 3.06 -Photo Taken No -Exudate Amt Small -Exudate Type Serosanguineous -Wound Margin Distinct, Outline Attached -Granulation Amt Large (67-100%) -Granulation Quality [place],Red -Necrosis Amt Small (1-33%) -Necrotic Tissue Type Adherent Slough -Structure Exposed N/A -Texture (Veronica-wound Skin Appearance) Scarring -Moisture (Veronica-wound Skin Appearance No Abnormality ) -Color (Veronica-wound Skin Appearance) Rubor -Temperature (Veronica-wound Skin No Abnormality Appearance) (Pt Warm) -Tenderness on Palpation (Veronica-wound Yes Skin Appearance) -Ulcer Cleansing Wound Cleanser -Foul Odor after Cleansing No -Anesthetic Used 5% Lidocaine Gel [Edema Assessment] -Left Calf (cm) 37 -Left Ankle (cm) 22.5 WC - Nurse 2 - General Ulcer CM Notes Start: 09/05/18 16:00 Freq: Status: Active Protocol: Activity Type Activity Date Activity User E-Sign Co-Sign Detail Recorded Client Recorded Date Recorded By Document 09/05/18 16:15 DL [id number] 09/05/18 16:18 DL 09/05/18 16:15 Wound Center Nurse 2 [Procedure/Treatment] #3 Lateral LLE -Time 16:17 -Correct Patient Yes -Correct Side, Site, Position Yes -Correct Procedure Yes -Procedure Performed Yes -Type of Procedure Debridement -Clinical Debridement Subcutaneous -Post Debridement Size (cm) - Length 2.0 -Post Debridement Size (cm) - Width 1.8 -Post Debridement Size (cm) - Depth 0.2 -Total Square Cm 3.60 -Wound/Ulcer Outcome Amputation -Ulcer Cleansing Rinsed/ Irrigated with Saline -Foul Odor after Cleansing No -Bioengineered Tissue No -Bleeding Controlled with Pressure -Offloading No -Treatment Response Procedure Tolerated Well [See Physician Procedure note for Specifics] Pain Scale: 0-10 Numeric [Pain] -Is Patient Pain Free? Yes Neurological: Neuro grossly intact Psych/Mental Status: Normal Affect, Appropriate, Alert and oriented to time, place, person, mood and affect Debridement Note Post-Debridement Measurements/Treatment WC - Nurse 2 - General Ulcer CM Notes Start: 09/05/18 16:00 Freq: Status: Active Protocol: Activity Type Activity Date Activity User E-Sign Co-Sign Detail Recorded Client Recorded Date Recorded By Document 09/05/18 16:15 DL [id number] 09/05/18 16:18 DL 09/05/18 16:15 Wound Center Nurse 2 #3 Lateral LLE -Time 16:17 -Correct Patient Yes -Correct Side, Site, Position Yes -Correct Procedure Yes -Procedure Performed Yes -Type of Procedure Debridement -Clinical Debridement Subcutaneous -Post Debridement Size (cm) - Length 2.0 -Post Debridement Size (cm) - Width 1.8 -Post Debridement Size (cm) - Depth 0.2 -Total Square Cm 3.60 -Wound/Ulcer Outcome Amputation -Ulcer Cleansing Rinsed/ Irrigated with Saline -Foul Odor after Cleansing No -Bioengineered Tissue No -Bleeding Controlled with Pressure -Offloading No -Treatment Response Procedure Tolerated Well Pain Scale: 0-10 Numeric Is Patient Pain Free? Yes Wound debrided: Nonhealing ulcer left lower extremity Laterality: Left Type of Debridement: Excisional debridement Anesthesia Used: 5% Lidocaine Gel Depth: in the subcutaneous layer Percentage of wound debrided: 100 Instrument Used: 5mm curette Tissue Removed: Slough and devitalized tissue Severity: Fat Layer Exposed Amount of bleeding with debridement: Mild Bleeding Controlled with: Pressure Patient tolerated procedure well Assessment/Plan Active Problems Nonhealing ulcer of left lower extremity with fat layer exposed (Acute) Bilateral lower extremity edema (Acute) Assessment: See above diagnoses Plan: The patient was seen and examined at the wound center today and was updated on the plan of care. A subcutaneous debridement was performed today. The patient tolerated the procedure well. The patients wound care will consist of: Applying snap VAC changing twice weekly with Tubigrip for compression. Given the delayed wound healing in fact that she has failed greater than 4 weeks of standard wound therapy from her primary care provider, will apply for the use of an advanced skin substitute product.Wound cultures skin contaminants of staph epidermidis, no indication for antibiotic. Baseline bloodwork reviewed and ESR and CRP slightly elevated most likely due to her rheumatoid arthritis, prealbumin low and patient educated again on the importance of increasing her protein intake. Vascular studies ordered and pending. Patient educated on the importance of diet on wound healing and instructed to increase protein and vitamin C intake. Patient has been advised to elevate lower extremities as much as possible. Elevation is to be implemented during daytime hours and legs are to be elevated to heart level, or higher, as much as possible. Prolonged idle sitting has been discouraged. Activity and ambulation has been encouraged. Patient verbalized understanding. Patient will follow up at wound healing center in one week or sooner if needed. This note was generated with [employer] dictation software. It may contain incorrect words, spelling, and punctuation that were not noted in checking the note before signing. Code Visit 111xxx-113xx: [id number] Lily subq tissue 20 sq cm/<
[2018-09-09 15:17] VITALS: BP 155/86; PULSE 97; RESP 20; TEMP 36.2; BMI 40.8
[2018-09-12 15:01] VITALS: BP 133/94; PULSE 86; RESP 20; TEMP 36.2; BMI 40.8
--- NOTE | 2018-09-12 20:54 | PN.PCM_ITS ---
(1) Bilateral lower extremity edema Status: Acute Code(s): R60.0 - Localized edema (2) Decreased dorsalis pedis pulse Status: Acute Code(s): R09.89 - Other specified symptoms and signs involving the circulatory and respiratory systems (3) Nonhealing ulcer of left lower extremity with fat layer exposed Status: Acute Code(s): L97.922 - Non-pressure chronic ulcer of unspecified part of left lower leg with fat layer exposed (4) COPD (chronic obstructive pulmonary disease) Status: Chronic Code(s): J44.9 - Chronic obstructive pulmonary disease, unspecified (5) Rheumatoid arthritis Status: Chronic Code(s): M06.9 - Rheumatoid arthritis, unspecified Type of Wound Date of Service: 09/12/18 Chief Complaint: Nonhealing ulcer to left lower extremity for 3 months status post traumatic injury. History of Wound: This is a 63-year-old white female with a past medical history as listed above who presents to the wound healing center today with complaint of nonhealing ulcer to left lateral lower extremity for 3 months.She does have a past medical history of rectal cancer, rheumatoid arthritis, PVD, CAD, and osteopenia. She is a current 1 pack/day smoker. She notes that initially she fell on 06/28 and hit the left lower leg on a metal object. She states that at the time there was no opening in the skin. However shortly after a scab. And then the skin opened up. She states that she has been seen by her primary care provider over the past couple weeks who is placed her on a course of Bactrim DS and that she has been utilizing Bactroban ointment daily and covering with gauze. She denies any heavy drainage from the site and denies any redness, fever, chills, warmth, chest pain or pressure, syncope or presyncopal episodes. Progress of Wound: Ulceration appears clean with minor amount of slough, size stable, depth has improved. Microbiology was reviewed and showed staph epidermidis, most likely skin contaminant. No indication for antibiotics at this time. Patient notes no worsening pain and no increase in pain or drainage. Vasculars reviewed and wnl. - Physical Exam Vital Signs Temp Pulse Resp BP 97.1 F L 86 20 H 133/94 H 09/12/18 15:01 09/12/18 15:09/12/18 15:01 09/12/18 15:01 General: Alert, Oriented x3, Cooperative, No apparent distress HEENT: Atraumatic Lungs: Clear to auscultation Cardiovascular: Regular rate Abdomen: Soft, Non Tender, Obese Extremities: No clubbing, No cyanosis, Edema - generalized BLLE edema Skin: Ulcer/ Wound - ulceration left lower extremity with adherant slough, no signs of infection at this time. Musculoskeletal: No Tenderness to Palpation of Joints or Extremities, Arthritic Changes Neurological: Neuro grossly intact Psych/Mental Status: Normal Affect, Appropriate, Alert and oriented to time, place, person, mood and affect Debridement Note Post-Debridement Measurements/Treatment WC - Nurse 2 - General Ulcer CM Notes Start: 09/05/18 16:00 Freq: Status: Active Protocol: Activity Type Activity Date Activity User E-Sign Co-Sign Detail Recorded Client Recorded Date Recorded By Document 09/05/18 16:15 DL [id number] 09/05/18 16:18 DL Document 09/12/18 15:52 AN [id number] 09/12/18 15:53 AN 09/05/18 09/12/18 16:15 15:52 Wound Center Nurse 2 #3 Lateral LLE -Time 16:17 15:52 -Correct Patient Yes Yes -Correct Side, Site, Position Yes Yes -Correct Procedure Yes Yes -Procedure Performed Yes Yes -Type of Procedure Debridement Debridement -Clinical Debridement Subcutaneous Subcutaneous -Post Debridement Size (cm) - Length 2.0 2 -Post Debridement Size (cm) - Width 1.8 2 -Post Debridement Size (cm) - Depth 0.2 0.2 -Total Square Cm 3.60 4 -Wound/Ulcer Outcome Amputation Not Healed -Ulcer Cleansing Rinsed/ Rinsed/ Irrigated with Irrigated with Saline Saline -Foul Odor after Cleansing No No -Bioengineered Tissue No No -Bleeding Controlled with Pressure Pressure -Offloading No -Treatment Response Procedure Procedure Tolerated Well Tolerated Well Pain Scale: 0-10 Numeric Is Patient Pain Free? Yes Yes Wound debrided: left lower extremity ulcer, nonhealing Laterality: Left Type of Debridement: Excisional debridement Anesthesia Used: 5% Lidocaine Gel Depth: in the subcutaneous layer Percentage of wound debrided: 100 Instrument Used: 5mm curette Tissue Removed: slough and devitalized tissue Severity: Fat Layer Exposed Amount of bleeding with debridement: Mild Bleeding Controlled with: Pressure Patient tolerated procedure well Assessment/Plan Assessment: See above diagnoses Plan: The patient was seen and examined at the wound center today and was updated on the plan of care. A subcutaneous debridement was performed today. The patient tolerated the procedure well. The patients wound care will consist of: Applying layer of aquacell AG and 3 m wraps for compression, reviewed vasculars and were WNL. Given the delayed wound healing in fact that she has failed greater than 4 weeks of standard wound therapy from her primary care provider, will apply for the use of an advanced skin substitute product.Wound cultures skin contaminants of staph epidermidis, no indication for antibiotic. Baseline bloodwork reviewed and ESR and CRP slightly elevated most likely due to her rheumatoid arthritis, prealbumin low and patient educated again on the importance of increasing her protein intake. Vascular studies ordered and pending. Patient educated on the importance of diet on wound healing and instructed to increase protein and vitamin C intake. Patient has been advised to elevate lower extremities as much as possible. Elevation is to be implemented during daytime hours and legs are to be elevated to heart level, or higher, as much as possible. Prolonged idle sitting has been discouraged. Activity and ambulation has been encouraged. Patient verbalized understanding. Patient will follow up at wound healing center in one week or sooner if needed. This note was generated with [employer] dictation software. It may contain incorrect words, spelling, and punctuation that were not noted in checking the note before signing. Code Visit 111xxx-113xx: 41390 Lily subq tissue 20 sq cm/<
[2018-09-16 14:00] VITALS: BP 132/94; PULSE 81; RESP 18; TEMP 36.8; BMI 40.8
[2018-09-19 15:07] VITALS: BP 158/74; PULSE 103; RESP 22; TEMP 36.1; BMI 40.8
--- NOTE | 2018-09-19 19:35 | PCM.WC.PN ---
(1) Nonhealing ulcer of left lower extremity with fat layer exposed Status: Acute Current Visit: Yes Code(s): L97.922 - Non-pressure chronic ulcer of unspecified part of left lower leg with fat layer exposed (2) Bilateral lower extremity edema Status: Acute Current Visit: Yes Code(s): R60.0 - Localized edema (3) Decreased dorsalis pedis pulse Status: Acute Current Visit: Yes Code(s): R09.89 - Other specified symptoms and signs involving the circulatory and respiratory systems (4) COPD (chronic obstructive pulmonary disease) Status: Chronic Current Visit: No Code(s): J44.9 - Chronic obstructive pulmonary disease, unspecified (5) Rheumatoid arthritis Status: Chronic Current Visit: No Code(s): M06.9 - Rheumatoid arthritis, unspecified Type of Wound Date of Service: 09/19/18 Chief Complaint: Nonhealing ulcer to left lower extremity for 3 months status post traumatic injury. History of Wound: This is a 63-year-old white female with a past medical history as listed above who presents to the wound healing center today with complaint of nonhealing ulcer to left lateral lower extremity for 3 months.She does have a past medical history of rectal cancer, rheumatoid arthritis, PVD, CAD, and osteopenia. She is a current 1 pack/day smoker. She notes that initially she fell on 06/28 and hit the left lower leg on a metal object. She states that at the time there was no opening in the skin. However shortly after a scab. And then the skin opened up. She states that she has been seen by her primary care provider over the past couple weeks who is placed her on a course of Bactrim DS and that she has been utilizing Bactroban ointment daily and covering with gauze. She denies any heavy drainage from the site and denies any redness, fever, chills, warmth, chest pain or pressure, syncope or presyncopal episodes. Progress of Wound: Ulceration appears clean with minor amount of slough, size larger this week and there is about 1 cm of erythema extending past the periwound bed area, depth has improved. Cultures were collected today. Patient notes no worsening pain and no increase in pain or drainage. Vasculars reviewed and wnl. - Physical Exam Vital Signs Temp Pulse Resp BP 96.9 F L 103 H 22 H 158/74 H 09/19/18 15:07 09/19/18 15:07 09/19/18 15:07 09/19/18 15:07 General: Alert, Oriented x3, Cooperative, No apparent distress HEENT: Atraumatic Oral: Moist Mucosa Lungs: Clear to auscultation Cardiovascular: Regular rate Extremities: No clubbing, No cyanosis, No edema, Diminished Peripheral Pulses Skin: Ulcer/ Wound - Aeration to left anterior lower extremity with small amount of adherent slough, some erythema noted in the periwound area Wound Measurements and Assessment WC - Nurse 1 - General Ulcer Measurement Start: 09/05/18 16:00 Freq: Status: Active Protocol: Activity Type Activity Date Activity User E-Sign Co-Sign Detail Recorded Client Recorded Date Recorded By Document 09/19/18 15:07 DL [id number] 09/19/18 15:17 DL 09/19/18 15:07 Wound Center Nurse 1 [Ulcer Assessment] #3 Lateral LLE -Current Size (cm) - Length 2.7 -Current Size (cm) - Width 2 -Current Size (cm) - Depth 0.1 -Total Square Cm 5.4 -Photo Taken No -Exudate Amt Small -Exudate Type Serosanguineous -Wound Margin Distinct, Outline Attached -Granulation Amt Medium (34-66%) -Granulation Quality Pale,[place] -Necrosis Amt Medium (34-66%) -Necrotic Tissue Type Adherent Slough -Structure Exposed N/A -Texture (Veronica-wound Skin Appearance) Scarring -Moisture (Veronica-wound Skin Appearance No Abnormality ) -Color (Veronica-wound Skin Appearance) Rubor -Temperature (Veronica-wound Skin No Abnormality Appearance) (Pt Warm) -Tenderness on Palpation (Veronica-wound No Skin Appearance) -Ulcer Cleansing Wound Cleanser -Foul Odor after Cleansing No -Anesthetic Used 5% Lidocaine Gel [Edema Assessment] -Left Calf (cm) 35 -Left Ankle (cm) 22.4 WC - Nurse 2 - General Ulcer CM Notes Start: 09/05/18 16:00 Freq: Status: Active Protocol: Activity Type Activity Date Activity User E-Sign Co-Sign Detail Recorded Client Recorded Date Recorded By Document 09/19/18 16:00 AN [id number] 09/19/18 16:05 AN 09/19/18 16:00 Wound Center Nurse 2 [Procedure/Treatment] #3 Lateral LLE -Time 16:01 -Correct Patient Yes -Correct Side, Site, Position Yes -Correct Procedure Yes -Procedure Performed Yes -Type of Procedure Debridement -Clinical Debridement Subcutaneous -Post Debridement Size (cm) - Length 2.9 -Post Debridement Size (cm) - Width 3.2 -Post Debridement Size (cm) - Depth 0.1 -Total Square Cm 9.28 -Wound/Ulcer Outcome Not Healed [See Physician Procedure note for Specifics] Pain Scale: 0-10 Numeric [Pain] -Is Patient Pain Free? Yes Musculoskeletal: Arthritic Changes Neurological: Neuro grossly intact Psych/Mental Status: Normal Affect, Appropriate, Alert and oriented to time, place, person, mood and affect Debridement Note Post-Debridement Measurements/Treatment WC - Nurse 2 - General Ulcer CM Notes Start: 09/05/18 16:00 Freq: Status: Active Protocol: Activity Type Activity Date Activity User E-Sign Co-Sign Detail Recorded Client Recorded Date Recorded By Document 09/05/18 16:15 DL [id number] 09/05/18 16:18 DL Document 09/12/18 15:52 AN [id number] 09/12/18 15:53 AN Document 09/19/18 16:00 AN [id number] 09/19/18 16:05 AN 09/05/18 09/12/18 09/19/18 16:15 15:52 16:00 Wound Center Nurse 2 #3 Lateral LLE -Time 16:17 15:52 16:01 -Correct Patient Yes Yes Yes -Correct Side, Site, Position Yes Yes Yes -Correct Procedure Yes Yes Yes -Procedure Performed Yes Yes Yes -Type of Procedure Debridement Debridement Debridement -Clinical Debridement Subcutaneous Subcutaneous Subcutaneous -Post Debridement Size (cm) - Length 2.0 2 2.9 -Post Debridement Size (cm) - Width 1.8 2 3.2 -Post Debridement Size (cm) - Depth 0.2 0.2 0.1 -Total Square Cm 3.60 4 9.28 -Wound/Ulcer Outcome Amputation Not Healed Not Healed -Ulcer Cleansing Rinsed/ Rinsed/ Irrigated with Irrigated with Saline Saline -Foul Odor after Cleansing No No -Bioengineered Tissue No No -Bleeding Controlled with Pressure Pressure -Offloading No -Treatment Response Procedure Procedure Tolerated Well Tolerated Well Pain Scale: 0-10 Numeric Is Patient Pain Free? Yes Yes Yes Wound debrided: Left anterior lower extremity ulcer Laterality: Left Type of Debridement: Excisional debridement Anesthesia Used: 5% Lidocaine Gel Depth: in the subcutaneous layer Percentage of wound debrided: 100 Instrument Used: 5mm curette Tissue Removed: Slough and devitalized tissue Severity: Fat Layer Exposed Amount of bleeding with debridement: Mild Bleeding Controlled with: Pressure Patient tolerated procedure well Assessment/Plan Active Problems Nonhealing ulcer of left lower extremity with fat layer exposed (Acute) Bilateral lower extremity edema (Acute) Decreased dorsalis pedis pulse (Acute) Assessment: See above diagnoses Plan: The patient was seen and examined at the wound center today and was updated on the plan of care. A subcutaneous debridement was performed today. The patient tolerated the procedure well. The patients wound care will consist of: Applying layer of promogran and 3 m wraps for compression, reviewed vasculars and were WNL. Given the delayed wound healing in fact that she has failed greater than 4 weeks of standard wound therapy from her primary care provider, will apply for the use of an advanced skin substitute product.Wound cultures skin contaminants of staph epidermidis, no indication for antibiotic. Baseline bloodwork reviewed and ESR and CRP slightly elevated most likely due to her rheumatoid arthritis, prealbumin low and patient educated again on the importance of increasing her protein intake. Vascular studies ordered and pending. Patient educated on the importance of diet on wound healing and instructed to increase protein and vitamin C intake. Patient has been advised to elevate lower extremities as much as possible. Elevation is to be implemented during daytime hours and legs are to be elevated to heart level, or higher, as much as possible. Prolonged idle sitting has been discouraged. Activity and ambulation has been encouraged. Patient verbalized understanding. Patient will follow up at wound healing center in one week or sooner if needed. This note was generated with [employer] software. It may contain incorrect words, spelling, and punctuation that were not noted in checking the note before signing. Code Visit 111xxx-113xx: [id number] Lily subq tissue 20 sq cm/<
[2018-09-20 16:34] LABS: M R Staph aureus DNA By PCR POSITIVE (Negative); Probe Check PASS; Staph aureus DNA By PCR POSITIVE (Negative)
[2018-09-23 14:49] VITALS: BP 155/94; PULSE 81; RESP 18; TEMP 36.7; BMI 40.8
[2018-09-26 14:53] VITALS: BP 152/93; PULSE 81; RESP 20; TEMP 35.9; BMI 40.8
--- NOTE | 2018-09-26 19:24 | PCM.WC.PN ---
(1) Nonhealing ulcer of left lower extremity with fat layer exposed Status: Acute Code(s): L97.922 - Non-pressure chronic ulcer of unspecified part of left lower leg with fat layer exposed (2) Bilateral lower extremity edema Status: Acute Code(s): R60.0 - Localized edema (3) Decreased dorsalis pedis pulse Status: Acute Code(s): R09.89 - Other specified symptoms and signs involving the circulatory and respiratory systems (4) COPD (chronic obstructive pulmonary disease) Status: Chronic Code(s): J44.9 - Chronic obstructive pulmonary disease, unspecified (5) Rheumatoid arthritis Status: Chronic Code(s): M06.9 - Rheumatoid arthritis, unspecified Type of Wound Date of Service: 09/26/18 Chief Complaint: Nonhealing ulcer to left lower extremity for 3 months status post traumatic injury. History of Wound: This is a 63-year-old white female with a past medical history as listed above who presents to the wound healing center today with complaint of nonhealing ulcer to left lateral lower extremity for 3 months.She does have a past medical history of rectal cancer, rheumatoid arthritis, PVD, CAD, and osteopenia. She is a current 1 pack/day smoker. She notes that initially she fell on 06/28 and hit the left lower leg on a metal object. She states that at the time there was no opening in the skin. However shortly after a scab. And then the skin opened up. She states that she has been seen by her primary care provider over the past couple weeks who is placed her on a course of Bactrim DS and that she has been utilizing Bactroban ointment daily and covering with gauze. She denies any heavy drainage from the site and denies any redness, fever, chills, warmth, chest pain or pressure, syncope or presyncopal episodes. Progress of Wound: Ulceration appears clean with minor amount of slough, size and depth has improved. Cultures were collected prior and showed staph and pt was placed on augmentin and is tolerating well. Patient notes no worsening pain and no increase in pain or drainage. Vasculars reviewed and wnl. - Physical Exam Vital Signs Temp Pulse Resp BP 96.7 F L 81 20 H 152/93 H 09/26/18 14:53 09/26/18 14:53 09/26/18 14:53 09/26/18 14:53 General: Alert, Oriented x3, Cooperative, No apparent distress HEENT: Atraumatic Oral: Moist Mucosa Lungs: Clear to auscultation Cardiovascular: Regular rate Abdomen: Soft, Non Tender, Obese Extremities: No clubbing, No cyanosis, No edema Skin: Ulcer/ Wound - ulceration to left lower extremity with adherant slough, no signs of infection at this time, less erythema Musculoskeletal: Arthritic Changes Neurological: Neuro grossly intact Psych/Mental Status: Normal Affect, Appropriate, Alert and oriented to time, place, person, mood and affect Debridement Note Post-Debridement Measurements/Treatment WC - Nurse 2 - General Ulcer CM Notes Start: 09/05/18 16:00 Freq: Status: Active Protocol: Activity Type Activity Date Activity User E-Sign Co-Sign Detail Recorded Client Recorded Date Recorded By Document 09/05/18 16:15 DL [id number] 09/05/18 16:18 DL Document 09/12/18 15:52 AN [id number] 09/12/18 15:53 AN Document 09/19/18 16:00 AN [id number] 09/19/18 16:05 AN Document 09/26/18 15:11 MW [id number] 09/26/18 15:18 MW 09/05/18 09/12/18 09/19/18 16:15 15:52 16:00 Wound Center Nurse 2 #3 Lateral LLE -Time 16:17 15:52 16:01 -Correct Patient Yes Yes Yes -Correct Side, Site, Position Yes Yes Yes -Correct Procedure Yes Yes Yes -Procedure Performed Yes Yes Yes -Type of Procedure Debridement Debridement Debridement -Clinical Debridement Subcutaneous Subcutaneous Subcutaneous -Post Debridement Size (cm) - Length 2.0 2 2.9 -Post Debridement Size (cm) - Width 1.8 2 3.2 -Post Debridement Size (cm) - Depth 0.2 0.2 0.1 -Total Square Cm 3.60 4 9.28 -Wound/Ulcer Outcome Amputation Not Healed Not Healed -Ulcer Cleansing Rinsed/ Rinsed/ Irrigated with Irrigated with Saline Saline -Foul Odor after Cleansing No No -Bioengineered Tissue No No -Bleeding Controlled with Pressure Pressure -Offloading No -Treatment Response Procedure Procedure Tolerated Well Tolerated Well Pain Scale: 0-10 Numeric Is Patient Pain Free? Yes Yes Yes 09/26/18 15:11 Wound Center Nurse 2 #3 Lateral LLE -Time 15:11 -Correct Patient Yes -Correct Side, Site, Position Yes -Correct Procedure Yes -Procedure Performed Yes -Type of Procedure Debridement -Clinical Debridement Subcutaneous -Post Debridement Size (cm) - Length 2.5 -Post Debridement Size (cm) - Width 2.0 -Post Debridement Size (cm) - Depth 0.1 -Total Square Cm 5.00 -Wound/Ulcer Outcome Not Healed -Ulcer Cleansing Rinsed/ Irrigated with Saline -Foul Odor after Cleansing No -Bioengineered Tissue No -Bleeding Controlled with Pressure -Offloading No -Treatment Response Procedure Tolerated Well Pain Scale: 0-10 Numeric Is Patient Pain Free? Yes Wound debrided: nonhealing ulcer to left lower extremity Type of Debridement: Excisional debridement Anesthesia Used: 5% Lidocaine Gel Depth: in the subcutaneous layer Percentage of wound debrided: 100 Instrument Used: 7mm curette Tissue Removed: slough and devitalized tissue Severity: Fat Layer Exposed Amount of bleeding with debridement: Mild Bleeding Controlled with: Pressure Patient tolerated procedure well Assessment/Plan Assessment: See above diagnoses Plan: The patient was seen and examined at the wound center today and was updated on the plan of care. A subcutaneous debridement was performed today. The patient tolerated the procedure well. The patients wound care will consist of: Applying layer of promogran and 3 m wraps for compression, reviewed vasculars and were WNL. Given the delayed wound healing in fact that she has failed greater than 4 weeks of standard wound therapy from her primary care provider, will apply for the use of an advanced skin substitute product.Wound cultures showed staph and pt was started on augmentin. Baseline bloodwork reviewed and ESR and CRP slightly elevated most likely due to her rheumatoid arthritis, prealbumin low and patient educated again on the importance of increasing her protein intake. Vascular studies ordered and pending. Patient educated on the importance of diet on wound healing and instructed to increase protein and vitamin C intake. Patient has been advised to elevate lower extremities as much as possible. Elevation is to be implemented during daytime hours and legs are to be elevated to heart level, or higher, as much as possible. Prolonged idle sitting has been discouraged. Activity and ambulation has been encouraged. Patient verbalized understanding. Patient will follow up at wound healing center in one week or sooner if needed. This note was generated with Dragon dictation software. It may contain incorrect words, spelling, and punctuation that were not noted in checking the note before signing. Code Visit 111xxx-113xx: [id number] Lily subq tissue 20 sq cm/<
[2018-10-03 14:58] VITALS: BP 147/81; PULSE 89; RESP 20; TEMP 36.9; BMI 40.8
--- NOTE | 2018-10-03 19:52 | PCM.WC.PN ---
(1) Nonhealing ulcer of left lower extremity with fat layer exposed Status: Acute Code(s): L97.922 - Non-pressure chronic ulcer of unspecified part of left lower leg with fat layer exposed (2) Bilateral lower extremity edema Status: Acute Code(s): R60.0 - Localized edema (3) Decreased dorsalis pedis pulse Status: Acute Code(s): R09.89 - Other specified symptoms and signs involving the circulatory and respiratory systems (4) COPD (chronic obstructive pulmonary disease) Status: Chronic Code(s): J44.9 - Chronic obstructive pulmonary disease, unspecified (5) Rheumatoid arthritis Status: Chronic Code(s): M06.9 - Rheumatoid arthritis, unspecified Type of Wound Date of Service: 10/03/18 Chief Complaint: Nonhealing ulcer to left lower extremity for 3 months status post traumatic injury. History of Wound: This is a 63-year-old white female with a past medical history as listed above who presents to the wound healing center today with complaint of nonhealing ulcer to left lateral lower extremity for 3 months.She does have a past medical history of rectal cancer, rheumatoid arthritis, PVD, CAD, and osteopenia. She is a current 1 pack/day smoker. She notes that initially she fell on 06/28 and hit the left lower leg on a metal object. She states that at the time there was no opening in the skin. However shortly after a scab. And then the skin opened up. She states that she has been seen by her primary care provider over the past couple weeks who is placed her on a course of Bactrim DS and that she has been utilizing Bactroban ointment daily and covering with gauze. She denies any heavy drainage from the site and denies any redness, fever, chills, warmth, chest pain or pressure, syncope or presyncopal episodes. Progress of Wound: Ulceration appears clean with minor amount of slough, size and depth has improved. Cultures were collected prior and showed staph and pt was placed on augmentin and is tolerating well. Patient notes no worsening pain and no increase in pain or drainage. Vasculars reviewed and wnl. - Physical Exam Vital Signs Temp Pulse Resp BP 98.4 F 89 20 H 147/81 H 10/03/18 14:58 10/03/18 14:58 10/03/18 14:58 10/03/18 14:58 General: Alert, Oriented x3, Cooperative, No apparent distress HEENT: Atraumatic Oral: Moist Mucosa Lungs: Clear to auscultation Cardiovascular: Regular rate Abdomen: Soft, Non Tender, Obese Extremities: No clubbing, No cyanosis, No edema, Peripheral Pulses Normal Skin: Ulcer/ Wound - Ulceration to the left anterior lower extremity with adherent slough, no signs of infection at this time, no periwound bed edema or malodor noted. Musculoskeletal: Arthritic Changes Neurological: Neuro grossly intact Psych/Mental Status: Normal Affect, Appropriate, Alert and oriented to time, place, person, mood and affect Debridement Note Post-Debridement Measurements/Treatment WC - Nurse 2 - General Ulcer CM Notes Start: 09/05/18 16:00 Freq: Status: Active Protocol: Activity Type Activity Date Activity User E-Sign Co-Sign Detail Recorded Client Recorded Date Recorded By Document 09/05/18 16:15 DL [id number] 09/05/18 16:18 DL Document 09/12/18 15:52 AN [id number] 09/12/18 15:53 AN Document 09/19/18 16:00 AN [id number] 09/19/18 16:05 AN Document 09/26/18 15:11 MW [id number] 09/26/18 15:18 MW Document 10/03/18 15:14 MW [id number] 10/03/18 15:19 MW 09/05/18 09/12/18 09/19/18 16:15 15:52 16:00 Wound Center Nurse 2 #3 Lateral LLE -Time 16:17 15:52 16:01 -Correct Patient Yes Yes Yes -Correct Side, Site, Position Yes Yes Yes -Correct Procedure Yes Yes Yes -Procedure Performed Yes Yes Yes -Type of Procedure Debridement Debridement Debridement -Clinical Debridement Subcutaneous Subcutaneous Subcutaneous -Post Debridement Size (cm) - Length 2.0 2 2.9 -Post Debridement Size (cm) - Width 1.8 2 3.2 -Post Debridement Size (cm) - Depth 0.2 0.2 0.1 -Total Square Cm 3.60 4 9.28 -Wound/Ulcer Outcome Amputation Not Healed Not Healed -Ulcer Cleansing Rinsed/ Rinsed/ Irrigated with Irrigated with Saline Saline -Foul Odor after Cleansing No No -Bioengineered Tissue No No -Bleeding Controlled with Pressure Pressure -Offloading No -Treatment Response Procedure Procedure Tolerated Well Tolerated Well Pain Scale: 0-10 Numeric Is Patient Pain Free? Yes Yes Yes 09/26/18 10/03/18 15:11 15:14 Wound Center Nurse 2 #3 Lateral LLE -Time 15:11 15:14 -Correct Patient Yes Yes -Correct Side, Site, Position Yes Yes -Correct Procedure Yes Yes -Procedure Performed Yes Yes -Type of Procedure Debridement Debridement -Clinical Debridement Subcutaneous Subcutaneous -Post Debridement Size (cm) - Length 2.5 1.9 -Post Debridement Size (cm) - Width 2.0 1.9 -Post Debridement Size (cm) - Depth 0.1 0.1 -Total Square Cm 5.00 3.61 -Wound/Ulcer Outcome Not Healed Not Healed -Ulcer Cleansing Rinsed/ Rinsed/ Irrigated with Irrigated with Saline Saline -Foul Odor after Cleansing No No -Bioengineered Tissue No No -Bleeding Controlled with Pressure Pressure -Offloading No No -Treatment Response Procedure Procedure Tolerated Well Tolerated Well Pain Scale: 0-10 Numeric Is Patient Pain Free? Yes Yes Wound debrided: left anterior lower extremity ulcer Laterality: Left Type of Debridement: Excisional debridement Anesthesia Used: 5% Lidocaine Gel Depth: in the subcutaneous layer Percentage of wound debrided: 100 Instrument Used: 7mm curette Tissue Removed: slough and devitalized tissue Severity: Fat Layer Exposed Amount of bleeding with debridement: Mild Bleeding Controlled with: Pressure Patient tolerated procedure well Assessment/Plan Assessment: See above diagnoses Plan: The patient was seen and examined at the wound center today and was updated on the plan of care. A subcutaneous debridement was performed today. The patient tolerated the procedure well. The patients wound care will consist of: Applying layer of promogran and 3 m wraps for compression, reviewed vasculars and were WNL. Given the delayed wound healing in fact that she has failed greater than 4 weeks of standard wound therapy from her primary care provider, will apply for the use of an advanced skin substitute product.Wound cultures showed staph and pt was started on augmentin. Baseline bloodwork reviewed and ESR and CRP slightly elevated most likely due to her rheumatoid arthritis, prealbumin low and patient educated again on the importance of increasing her protein intake. Vascular studies ordered and pending. Patient educated on the importance of diet on wound healing and instructed to increase protein and vitamin C intake. Patient has been advised to elevate lower extremities as much as possible. Elevation is to be implemented during daytime hours and legs are to be elevated to heart level, or higher, as much as possible. Prolonged idle sitting has been discouraged. Activity and ambulation has been encouraged. Patient verbalized understanding. Patient will follow up at wound healing center in one week or sooner if needed. This note was generated with [employer] dictation software. It may contain incorrect words, spelling, and punctuation that were not noted in checking the note before signing. Code Visit 111xxx-113xx: 18428 Lily subq tissue 20 sq cm/<
== END 2018-10-05 23:59 ==
LOC: WC 14:45
PROVIDERS: Family Provider Family Medicine; PCP Family Medicine; Referring Provider Nurse Practitioner Family; Visit Provider Nurse Practitioner Family
DX: I73.9 Peripheral vascular disease, unspecified (principal); L97.822 Non-pressure chronic ulcer of other part of left lower leg with fat layer exposed; M06.9 Rheumatoid arthritis, unspecified; C21.0 Malignant neoplasm of anus, unspecified; R60.0 Localized edema; J44.9 Chronic obstructive pulmonary disease, unspecified; F17.200 Nicotine dependence, unspecified, uncomplicated; I25.10 Atherosclerotic heart disease of native coronary artery without angina pectoris; R09.89 Other specified symptoms and signs involving the circulatory and respiratory systems
CPT/HCPCS: 11042; 29581; 87070; 87075; 87077; 87186; 87205; 87640; 97606; 97607; 99212; G0463

== ENCOUNTER 2018-10-31 14:30 | Outpatient (RCR) | payer OTHER, SELFPAY ==
[2018-10-06 00:58] VITALS: BP 147/81; PULSE 89; RESP 20; TEMP 36.9
[2018-10-10 14:52] VITALS: BP 156/75; PULSE 66; RESP 18; TEMP 36.4; BMI 40.8
--- NOTE | 2018-10-10 17:02 | PCM.WC.PN ---
(1) Nonhealing ulcer of left lower extremity with fat layer exposed Status: Acute Code(s): L97.922 - Non-pressure chronic ulcer of unspecified part of left lower leg with fat layer exposed (2) Bilateral lower extremity edema Status: Acute Code(s): R60.0 - Localized edema (3) Decreased dorsalis pedis pulse Status: Acute Code(s): R09.89 - Other specified symptoms and signs involving the circulatory and respiratory systems (4) Rheumatoid arthritis Status: Chronic Code(s): M06.9 - Rheumatoid arthritis, unspecified Type of Wound Date of Service: 10/10/18 Chief Complaint: Nonhealing ulcer to left lower extremity for 3 months status post traumatic injury. History of Wound: This is a 63-year-old white female with a past medical history as listed above who presents to the wound healing center today with complaint of nonhealing ulcer to left lateral lower extremity for 3 months.She does have a past medical history of rectal cancer, rheumatoid arthritis, PVD, CAD, and osteopenia. She is a current 1 pack/day smoker. She notes that initially she fell on 06/28 and hit the left lower leg on a metal object. She states that at the time there was no opening in the skin. However shortly after a scab. And then the skin opened up. She states that she has been seen by her primary care provider over the past couple weeks who is placed her on a course of Bactrim DS and that she has been utilizing Bactroban ointment daily and covering with gauze. She denies any heavy drainage from the site and denies any redness, fever, chills, warmth, chest pain or pressure, syncope or presyncopal episodes. Progress of Wound: Ulceration appears clean with minor amount of slough, size and depth has improved. Cultures were collected prior and showed staph and pt was placed on augmentin and completed course. Patient notes no worsening pain and no increase in pain or drainage. Vasculars reviewed and wnl. - Physical Exam Vital Signs Temp Pulse Resp BP 97.5 F L 66 18 156/75 H 10/10/18 14:52 10/10/18 14:52 10/10/18 14:52 10/10/18 14:52 General: Alert, Oriented x3, Cooperative, No apparent distress HEENT: Atraumatic Oral: Moist Mucosa Lungs: Clear to auscultation Cardiovascular: Regular rate Abdomen: Soft, Non Tender, Obese Extremities: No clubbing, No cyanosis, No edema Skin: Ulcer/ Wound - Ulceration beefy red without any signs of infection at this time, small amount of slough noted Neurological: Neuro grossly intact Psych/Mental Status: Normal Affect, Appropriate, Alert and oriented to time, place, person, mood and affect Debridement Note Post-Debridement Measurements/Treatment WC - Nurse 2 - General Ulcer CM Notes Start: 10/10/18 14:52 Freq: Status: Active Protocol: Activity Type Activity Date Activity User E-Sign Co-Sign Detail Recorded Client Recorded Date Recorded By Document 10/10/18 15:27 AN [id number] 10/10/18 15:32 AN 10/10/18 15:27 Wound Center Nurse 2 #3 Lateral LLE -Time 15:29 -Correct Patient Yes -Correct Side, Site, Position Yes -Correct Procedure Yes -Procedure Performed Yes -Type of Procedure Debridement -Clinical Debridement Subcutaneous -Post Debridement Size (cm) - Length 1.9 -Post Debridement Size (cm) - Width 1.6 -Post Debridement Size (cm) - Depth 0.1 -Total Square Cm 3.04 -Wound/Ulcer Outcome Not Healed -Ulcer Cleansing Rinsed/ Irrigated with Saline -Foul Odor after Cleansing No -Bioengineered Tissue No -Bleeding Controlled with Pressure -Offloading Yes -Treatment Response Procedure Tolerated Well Pain Scale: 0-10 Numeric Is Patient Pain Free? Yes Wound debrided: Nonhealing ulcer left lower extremity Laterality: Left Type of Debridement: Excisional debridement Anesthesia Used: 5% Lidocaine Gel Depth: in the subcutaneous layer Percentage of wound debrided: 100 Instrument Used: 7mm curette Tissue Removed: Slough and devitalized tissue Severity: Fat Layer Exposed Amount of bleeding with debridement: Mild Bleeding Controlled with: Pressure Patient tolerated procedure well Assessment/Plan Assessment: See above diagnoses Plan: The patient was seen and examined at the wound center today and was updated on the plan of care. A subcutaneous debridement was performed today. The patient tolerated the procedure well. The patients wound care will consist of: Applying layer of promogran and 3 m wraps for compression, reviewed vasculars and were WNL. Given the delayed wound healing in fact that she has failed greater than 4 weeks of standard wound therapy from her primary care provider, will apply for the use of an advanced skin substitute product.Wound cultures showed staph and pt was started on augmentin. Baseline bloodwork reviewed and ESR and CRP slightly elevated most likely due to her rheumatoid arthritis, prealbumin low and patient educated again on the importance of increasing her protein intake. Vascular studies ordered and pending. Patient educated on the importance of diet on wound healing and instructed to increase protein and vitamin C intake. Patient has been advised to elevate lower extremities as much as possible. Elevation is to be implemented during daytime hours and legs are to be elevated to heart level, or higher, as much as possible. Prolonged idle sitting has been discouraged. Activity and ambulation has been encouraged. Patient verbalized understanding. Patient will follow up at wound healing center in one week or sooner if needed. This note was generated with [employer] dictation software. It may contain incorrect words, spelling, and punctuation that were not noted in checking the note before signing. Code Visit 111xxx-113xx: 32137 Lily subq tissue 20 sq cm/<
[2018-10-17 14:14] VITALS: BP 130/77; PULSE 81; RESP 18; TEMP 36.1; BMI 40.8
--- NOTE | 2018-10-17 18:00 | PCM.WC.PN ---
(1) Nonhealing ulcer of left lower extremity with fat layer exposed Status: Acute Code(s): L97.922 - Non-pressure chronic ulcer of unspecified part of left lower leg with fat layer exposed (2) Bilateral lower extremity edema Status: Acute Code(s): R60.0 - Localized edema (3) Decreased dorsalis pedis pulse Status: Acute Code(s): R09.89 - Other specified symptoms and signs involving the circulatory and respiratory systems (4) Rheumatoid arthritis Status: Chronic Code(s): M06.9 - Rheumatoid arthritis, unspecified Type of Wound Date of Service: 10/17/18 Chief Complaint: Nonhealing ulcer to left lower extremity for 3 months status post traumatic injury. History of Wound: This is a 63-year-old white female with a past medical history as listed above who presents to the wound healing center today with complaint of nonhealing ulcer to left lateral lower extremity for 3 months.She does have a past medical history of rectal cancer, rheumatoid arthritis, PVD, CAD, and osteopenia. She is a current 1 pack/day smoker. She notes that initially she fell on 06/28 and hit the left lower leg on a metal object. She states that at the time there was no opening in the skin. However shortly after a scab. And then the skin opened up. She states that she has been seen by her primary care provider over the past couple weeks who is placed her on a course of Bactrim DS and that she has been utilizing Bactroban ointment daily and covering with gauze. She denies any heavy drainage from the site and denies any redness, fever, chills, warmth, chest pain or pressure, syncope or presyncopal episodes. Progress of Wound: Ulceration appears clean with minor amount of slough, size and depth has improved. Cultures were collected prior and showed staph and pt was placed on augmentin and completed course. Patient notes no worsening pain and no increase in pain or drainage. Vasculars reviewed and wnl. - Physical Exam Vital Signs Temp Pulse Resp BP 97.0 F L 81 18 130/77 H 10/17/18 14:14 10/17/18 14:14 10/17/18 14:14 10/17/18 14:14 General: Alert, Oriented x3, Cooperative, No apparent distress HEENT: Atraumatic Oral: Moist Mucosa Lungs: Clear to auscultation Cardiovascular: Regular rate Abdomen: Soft, Non Tender, Obese Extremities: No clubbing, No cyanosis, Diminished Peripheral Pulses, Edema - Generalized bilateral lower extremity edema Skin: Ulcer/ Wound - Ulceration to left lower extremity with adherent slough, no signs of infection at this time. Musculoskeletal: Arthritic Changes Neurological: Neuro grossly intact Psych/Mental Status: Normal Affect, Appropriate, Alert and oriented to time, place, person, mood and affect Debridement Note Post-Debridement Measurements/Treatment WC - Nurse 2 - General Ulcer CM Notes Start: 10/10/18 14:52 Freq: Status: Active Protocol: Activity Type Activity Date Activity User E-Sign Co-Sign Detail Recorded Client Recorded Date Recorded By Document 10/10/18 15:27 AN [id number] 10/10/18 15:32 AN Document 10/17/18 14:41 AN [id number] 10/17/18 14:42 AN 10/10/18 10/17/18 15:27 14:41 Wound Center Nurse 2 #3 Lateral LLE -Time 15:29 14:41 -Correct Patient Yes Yes -Correct Side, Site, Position Yes Yes -Correct Procedure Yes Yes -Procedure Performed Yes Yes -Type of Procedure Debridement Debridement -Clinical Debridement Subcutaneous Subcutaneous -Post Debridement Size (cm) - Length 1.9 1.1 -Post Debridement Size (cm) - Width 1.6 1.1 -Post Debridement Size (cm) - Depth 0.1 0.1 -Total Square Cm 3.04 1.21 -Wound/Ulcer Outcome Not Healed Not Healed -Ulcer Cleansing Rinsed/ Rinsed/ Irrigated with Irrigated with Saline Saline -Foul Odor after Cleansing No No -Bioengineered Tissue No No -Bleeding Controlled with Pressure Pressure -Offloading Yes No -Treatment Response Procedure Procedure Tolerated Well Tolerated Well Pain Scale: 0-10 Numeric Is Patient Pain Free? Yes Yes Wound debrided: Left lower extremity ulceration Laterality: Left Type of Debridement: Excisional debridement Anesthesia Used: 5% Lidocaine Gel Depth: in the subcutaneous layer Percentage of wound debrided: 100 Instrument Used: 7mm curette Tissue Removed: Slough and devitalized tissue Severity: Fat Layer Exposed Amount of bleeding with debridement: Mild Bleeding Controlled with: Pressure Patient tolerated procedure well Assessment/Plan Assessment: See above diagnoses Plan: The patient was seen and examined at the wound center today and was updated on the plan of care. A subcutaneous debridement was performed today. The patient tolerated the procedure well. The patients wound care will consist of: Applying layer of promogran and 3 m wraps for compression, reviewed vasculars and were WNL. Given the delayed wound healing in fact that she has failed greater than 4 weeks of standard wound therapy from her primary care provider, will apply for the use of an advanced skin substitute product.Wound cultures showed staph and pt was started on augmentin. Baseline bloodwork reviewed and ESR and CRP slightly elevated most likely due to her rheumatoid arthritis, prealbumin low and patient educated again on the importance of increasing her protein intake. Vascular studies ordered and pending. Patient educated on the importance of diet on wound healing and instructed to increase protein and vitamin C intake. Patient has been advised to elevate lower extremities as much as possible. Elevation is to be implemented during daytime hours and legs are to be elevated to heart level, or higher, as much as possible. Prolonged idle sitting has been discouraged. Activity and ambulation has been encouraged. Patient verbalized understanding. Patient will follow up at wound healing center in one week or sooner if needed. This note was generated with [employer] dictation software. It may contain incorrect words, spelling, and punctuation that were not noted in checking the note before signing. Code Visit 111xxx-113xx: 44670 Lily subq tissue 20 sq cm/<
[2018-10-24 15:11] VITALS: BP 151/90; PULSE 80; RESP 18; TEMP 36.3; BMI 40.8
--- NOTE | 2018-10-25 16:10 | PCM.WC.PN ---
(1) Nonhealing ulcer of left lower extremity with fat layer exposed Status: Acute Current Visit: Yes Code(s): L97.922 - Non-pressure chronic ulcer of unspecified part of left lower leg with fat layer exposed (2) Bilateral lower extremity edema Status: Acute Current Visit: Yes Code(s): R60.0 - Localized edema (3) Decreased dorsalis pedis pulse Status: Acute Current Visit: Yes Code(s): R09.89 - Other specified symptoms and signs involving the circulatory and respiratory systems (4) Rheumatoid arthritis Status: Chronic Current Visit: Yes Code(s): M06.9 - Rheumatoid arthritis, unspecified Type of Wound Date of Service: 10/24/18 Chief Complaint: Nonhealing ulcer to left lower extremity for 3 months status post traumatic injury. History of Wound: This is a 63-year-old white female with a past medical history as listed above who presents to the wound healing center today with complaint of nonhealing ulcer to left lateral lower extremity for 3 months.She does have a past medical history of rectal cancer, rheumatoid arthritis, PVD, CAD, and osteopenia. She is a current 1 pack/day smoker. She notes that initially she fell on 06/28 and hit the left lower leg on a metal object. She states that at the time there was no opening in the skin. However shortly after a scab. And then the skin opened up. She states that she has been seen by her primary care provider over the past couple weeks who is placed her on a course of Bactrim DS and that she has been utilizing Bactroban ointment daily and covering with gauze. She denies any heavy drainage from the site and denies any redness, fever, chills, warmth, chest pain or pressure, syncope or presyncopal episodes. Progress of Wound: Ulceration appears clean with minor amount of slough, size and depth has improved. Cultures were collected prior and showed staph and pt was placed on augmentin and completed course. Patient notes no worsening pain and no increase in pain or drainage. Vasculars reviewed and wnl. - Physical Exam Vital Signs Temp Pulse Resp BP 97.3 F L 80 18 151/90 H 10/24/18 15:11 10/24/18 15:11 10/24/18 15:11 10/24/18 15:11 General: Alert, Oriented x3, Cooperative, No apparent distress HEENT: Atraumatic Oral: Moist Mucosa Lungs: Clear to auscultation Cardiovascular: Regular rate Abdomen: Soft, Non Tender, Obese Extremities: No clubbing, No cyanosis, No edema Skin: Ulcer/ Wound - ulceration to left lower extremity with adherant slough, no signs of infection at this time Wound Measurements and Assessment WC - Nurse 1 - General Ulcer Measurement Start: 10/10/18 14:52 Freq: Status: Active Protocol: Activity Type Activity Date Activity User E-Sign Co-Sign Detail Recorded Client Recorded Date Recorded By Document 10/24/18 15:11 RB [id number] 10/24/18 15:12 RB 10/24/18 15:11 Wound Center Nurse 1 [Ulcer Assessment] #3 Lateral LLE -Combined with other wound No -Current Size (cm) - Length 1 -Current Size (cm) - Width 0.9 -Current Size (cm) - Depth 0.1 -Total Square Cm 0.9 -Tunneling No -Undermining/Tunneling No -Circular Undermining No -Exudate Amt Small -Exudate Type Serosanguineous -Wound Margin Flat & Intact -Granulation Amt Large (67-100%) -Granulation Quality [employer],Red -Slough/Fibrin Yes -Necrosis Amt Small (1-33%) -Necrotic Tissue Type Adherent Slough -Structure Exposed N/A -Texture (Veronica-wound Skin Appearance) Assessed -Moisture (Veronica-wound Skin Appearance Assessed ) -Color (Veronica-wound Skin Appearance) Assessed -Temperature (Veronica-wound Skin No Abnormality Appearance) (Pt Warm) -Tenderness on Palpation (Veronica-wound No Skin Appearance) -Ulcer Cleansing Wound Cleanser -Foul Odor after Cleansing No -Anesthetic Used 5% Lidocaine Gel [Edema Assessment] -Lower Limb Edema Present Yes -Left Calf (cm) 35.5 -Left Ankle (cm) 23 WC - Nurse 2 - General Ulcer CM Notes Start: 10/10/18 14:52 Freq: Status: Active Protocol: Activity Type Activity Date Activity User E-Sign Co-Sign Detail Recorded Client Recorded Date Recorded By Document 10/24/18 15:23 AN [id number] 10/24/18 15:24 AN 10/24/18 15:23 Wound Center Nurse 2 [Procedure/Treatment] #3 Lateral LLE -Time 15:23 -Correct Patient Yes -Correct Side, Site, Position Yes -Correct Procedure Yes -Procedure Performed Yes -Type of Procedure Debridement -Clinical Debridement Subcutaneous -Post Debridement Size (cm) - Length 0.8 -Post Debridement Size (cm) - Width 0.7 -Post Debridement Size (cm) - Depth 0.1 -Total Square Cm 0.56 -Wound/Ulcer Outcome Not Healed -Ulcer Cleansing Rinsed/ Irrigated with Saline -Foul Odor after Cleansing No -Bioengineered Tissue No -Bleeding Controlled with Pressure -Offloading No -Treatment Response Procedure Tolerated Well [See Physician Procedure note for Specifics] Pain Scale: 0-10 Numeric [Pain] -Is Patient Pain Free? Yes Neurological: Neuro grossly intact Psych/Mental Status: Normal Affect, Appropriate, Alert and oriented to time, place, person, mood and affect Debridement Note Post-Debridement Measurements/Treatment WC - Nurse 2 - General Ulcer CM Notes Start: 10/10/18 14:52 Freq: Status: Active Protocol: Activity Type Activity Date Activity User E-Sign Co-Sign Detail Recorded Client Recorded Date Recorded By Document 10/10/18 15:27 AN [id number] 10/10/18 15:32 AN Document 10/17/18 14:41 AN [id number] 10/17/18 14:42 AN Document 10/24/18 15:23 AN [id number] 10/24/18 15:24 AN 10/10/18 10/17/18 10/24/18 15:27 14:41 15:23 Wound Center Nurse 2 #3 Lateral LLE -Time 15:29 14:41 15:23 -Correct Patient Yes Yes Yes -Correct Side, Site, Position Yes Yes Yes -Correct Procedure Yes Yes Yes -Procedure Performed Yes Yes Yes -Type of Procedure Debridement Debridement Debridement -Clinical Debridement Subcutaneous Subcutaneous Subcutaneous -Post Debridement Size (cm) - Length 1.9 1.1 0.8 -Post Debridement Size (cm) - Width 1.6 1.1 0.7 -Post Debridement Size (cm) - Depth 0.1 0.1 0.1 -Total Square Cm 3.04 1.21 0.56 -Wound/Ulcer Outcome Not Healed Not Healed Not Healed -Ulcer Cleansing Rinsed/ Rinsed/ Rinsed/ Irrigated with Irrigated with Irrigated with Saline Saline Saline -Foul Odor after Cleansing No No No -Bioengineered Tissue No No No -Bleeding Controlled with Pressure Pressure Pressure -Offloading Yes No No -Treatment Response Procedure Procedure Procedure Tolerated Well Tolerated Well Tolerated Well Pain Scale: 0-10 Numeric Is Patient Pain Free? Yes Yes Yes Wound debrided: left lower extremity ulcer Laterality: Left Type of Debridement: Excisional debridement Anesthesia Used: 5% Lidocaine Gel Depth: in the subcutaneous layer Percentage of wound debrided: 100 Instrument Used: 7mm curette Tissue Removed: slough and devitalized tissue Severity: Fat Layer Exposed Amount of bleeding with debridement: Mild Bleeding Controlled with: Pressure Patient tolerated procedure well Assessment/Plan Active Problems Nonhealing ulcer of left lower extremity with fat layer exposed (Acute) Bilateral lower extremity edema (Acute) Decreased dorsalis pedis pulse (Acute) Rheumatoid arthritis (Chronic) Assessment: See above diagnoses Plan: The patient was seen and examined at the wound center today and was updated on the plan of care. A subcutaneous debridement was performed today. The patient tolerated the procedure well. The patients wound care will consist of: Applying layer of promogran and 3 m wraps for compression, reviewed vasculars and were WNL. Given the delayed wound healing in fact that she has failed greater than 4 weeks of standard wound therapy from her primary care provider, will apply for the use of an advanced skin substitute product.Wound cultures showed staph and pt was completed course augmentin. Baseline bloodwork reviewed and ESR and CRP slightly elevated most likely due to her rheumatoid arthritis, prealbumin low and patient educated again on the importance of increasing her protein intake. Vascular studies ordered and pending. Patient educated on the importance of diet on wound healing and instructed to increase protein and vitamin C intake. Patient has been advised to elevate lower extremities as much as possible. Elevation is to be implemented during daytime hours and legs are to be elevated to heart level, or higher, as much as possible. Prolonged idle sitting has been discouraged. Activity and ambulation has been encouraged. Patient verbalized understanding. Patient will follow up at wound healing center in one week or sooner if needed. This note was generated with [employer] software. It may contain incorrect words, spelling, and punctuation that were not noted in checking the note before signing. Code Visit 111xxx-113xx: 07696 Lily subq tissue 20 sq cm/<
[2018-10-31 15:00] VITALS: BP 131/80; PULSE 72; RESP 18; TEMP 36.4; BMI 40.8
--- NOTE | 2018-10-31 19:39 | PCM.WC.PN ---
(1) Nonhealing ulcer of left lower extremity with fat layer exposed Status: Acute Code(s): L97.922 - Non-pressure chronic ulcer of unspecified part of left lower leg with fat layer exposed (2) Bilateral lower extremity edema Status: Acute Code(s): R60.0 - Localized edema (3) Decreased dorsalis pedis pulse Status: Acute Code(s): R09.89 - Other specified symptoms and signs involving the circulatory and respiratory systems (4) Rheumatoid arthritis Status: Chronic Code(s): M06.9 - Rheumatoid arthritis, unspecified Type of Wound Date of Service: 10/31/18 Chief Complaint: Nonhealing ulcer to left lower extremity for 3 months status post traumatic injury. History of Wound: This is a 63-year-old white female with a past medical history as listed above who presents to the wound healing center today with complaint of nonhealing ulcer to left lateral lower extremity for 3 months.She does have a past medical history of rectal cancer, rheumatoid arthritis, PVD, CAD, and osteopenia. She is a current 1 pack/day smoker. She notes that initially she fell on 06/28 and hit the left lower leg on a metal object. She states that at the time there was no opening in the skin. However shortly after a scab. And then the skin opened up. She states that she has been seen by her primary care provider over the past couple weeks who is placed her on a course of Bactrim DS and that she has been utilizing Bactroban ointment daily and covering with gauze. She denies any heavy drainage from the site and denies any redness, fever, chills, warmth, chest pain or pressure, syncope or presyncopal episodes. Progress of Wound: Ulceration appears clean with minor amount of slough, size and depth has improved. Cultures were collected prior and showed staph and pt was placed on augmentin and completed course. Patient notes no worsening pain and no increase in pain or drainage. Vasculars reviewed and wnl. - Physical Exam Vital Signs Temp Pulse Resp BP 97.5 F L 72 18 131/80 H 10/31/18 15:00 10/31/18 15:00 10/31/18 15:00 10/31/18 15:00 General: Alert, Oriented x3, Cooperative, No apparent distress HEENT: Atraumatic Oral: Moist Mucosa Lungs: Clear to auscultation Cardiovascular: Regular rate Abdomen: Soft, Non Tender Extremities: No clubbing, No cyanosis, No edema Skin: Ulcer/ Wound - Ulceration to left lower extremity with small amount of adherent slough, no signs of infection at this time Neurological: Neuro grossly intact Psych/Mental Status: Normal Affect, Appropriate, Alert and oriented to time, place, person, mood and affect Debridement Note Post-Debridement Measurements/Treatment WC - Nurse 2 - General Ulcer CM Notes Start: 10/10/18 14:52 Freq: Status: Active Protocol: Activity Type Activity Date Activity User E-Sign Co-Sign Detail Recorded Client Recorded Date Recorded By Document 10/10/18 15:27 AN [id number] 10/10/18 15:32 AN Document 10/17/18 14:41 AN [id number] 10/17/18 14:42 AN Document 10/24/18 15:23 AN [id number] 10/24/18 15:24 AN Document 10/31/18 15:31 AN [id number] 10/31/18 15:32 AN 10/10/18 10/17/18 10/24/18 15:27 14:41 15:23 Wound Center Nurse 2 #3 Lateral LLE -Time 15:29 14:41 15:23 -Correct Patient Yes Yes Yes -Correct Side, Site, Position Yes Yes Yes -Correct Procedure Yes Yes Yes -Procedure Performed Yes Yes Yes -Type of Procedure Debridement Debridement Debridement -Clinical Debridement Subcutaneous Subcutaneous Subcutaneous -Post Debridement Size (cm) - Length 1.9 1.1 0.8 -Post Debridement Size (cm) - Width 1.6 1.1 0.7 -Post Debridement Size (cm) - Depth 0.1 0.1 0.1 -Total Square Cm 3.04 1.21 0.56 -Wound/Ulcer Outcome Not Healed Not Healed Not Healed -Ulcer Cleansing Rinsed/ Rinsed/ Rinsed/ Irrigated with Irrigated with Irrigated with Saline Saline Saline -Foul Odor after Cleansing No No No -Bioengineered Tissue No No No -Bleeding Controlled with Pressure Pressure Pressure -Offloading Yes No No -Treatment Response Procedure Procedure Procedure Tolerated Well Tolerated Well Tolerated Well Pain Scale: 0-10 Numeric Is Patient Pain Free? Yes Yes Yes 10/31/18 15:31 Wound Center Nurse 2 #3 Lateral LLE -Time 15:32 -Correct Patient Yes -Correct Side, Site, Position Yes -Correct Procedure Yes -Procedure Performed Yes -Type of Procedure Debridement -Clinical Debridement Subcutaneous -Post Debridement Size (cm) - Length 0.4 -Post Debridement Size (cm) - Width 0.2 -Post Debridement Size (cm) - Depth 0.1 -Total Square Cm 0.08 -Wound/Ulcer Outcome Not Healed -Ulcer Cleansing Rinsed/ Irrigated with Saline -Foul Odor after Cleansing No -Bioengineered Tissue No -Bleeding Controlled with Pressure -Offloading No -Treatment Response Procedure Tolerated Well Pain Scale: 0-10 Numeric Is Patient Pain Free? Yes Wound debrided: Lower extremity ulceration Laterality: Left Type of Debridement: Excisional debridement Anesthesia Used: 5% Lidocaine Gel Depth: in the subcutaneous layer Percentage of wound debrided: 100 Instrument Used: 3mm curette Tissue Removed: Slough and devitalized tissue Severity: Fat Layer Exposed Amount of bleeding with debridement: Mild Bleeding Controlled with: Pressure Patient tolerated procedure well Assessment/Plan Assessment: See above diagnoses Plan: The patient was seen and examined at the wound center today and was updated on the plan of care. A subcutaneous debridement was performed today. The patient tolerated the procedure well. The patients wound care will consist of: Applying layer of promogran and 3 m wraps for compression, reviewed vasculars and were WNL. Given the delayed wound healing in fact that she has failed greater than 4 weeks of standard wound therapy from her primary care provider, will apply for the use of an advanced skin substitute product.Wound cultures showed staph and pt was completed course augmentin. Baseline bloodwork reviewed and ESR and CRP slightly elevated most likely due to her rheumatoid arthritis, prealbumin low and patient educated again on the importance of increasing her protein intake. Vascular studies ordered and pending. Patient educated on the importance of diet on wound healing and instructed to increase protein and vitamin C intake. Patient has been advised to elevate lower extremities as much as possible. Elevation is to be implemented during daytime hours and legs are to be elevated to heart level, or higher, as much as possible. Prolonged idle sitting has been discouraged. Activity and ambulation has been encouraged. Patient verbalized understanding. Patient will follow up at wound healing center in one week or sooner if needed. This note was generated with [employer] dictation software. It may contain incorrect words, spelling, and punctuation that were not noted in checking the note before signing. Code Visit 111xxx-113xx: [id number] Lily subq tissue 20 sq cm/<
== END 2018-11-04 23:59 ==
LOC: WC 14:30
PROVIDERS: Family Provider Family Medicine; PCP Family Medicine; Referring Provider Nurse Practitioner Family; Visit Provider Nurse Practitioner Family
DX: I73.9 Peripheral vascular disease, unspecified (principal); L97.822 Non-pressure chronic ulcer of other part of left lower leg with fat layer exposed; M06.9 Rheumatoid arthritis, unspecified; R60.0 Localized edema; R09.89 Other specified symptoms and signs involving the circulatory and respiratory systems; C21.0 Malignant neoplasm of anus, unspecified; I25.10 Atherosclerotic heart disease of native coronary artery without angina pectoris; F17.200 Nicotine dependence, unspecified, uncomplicated
CPT/HCPCS: 11042

== ENCOUNTER 2018-11-07 13:28 | Outpatient (RCR) | payer OTHER, SELFPAY ==
[2018-11-05 00:53] VITALS: BP 131/80; PULSE 72; RESP 18; TEMP 36.4
[2018-11-07 14:40] VITALS: BP 185/100; PULSE 85; RESP 18; TEMP 36.6; BMI 40.8
--- NOTE | 2018-11-07 15:02 | PCM.WC.PN ---
(1) Nonhealing ulcer of left lower extremity with fat layer exposed Status: Acute Code(s): L97.922 - Non-pressure chronic ulcer of unspecified part of left lower leg with fat layer exposed (2) Bilateral lower extremity edema Status: Acute Code(s): R60.0 - Localized edema (3) Decreased dorsalis pedis pulse Status: Acute Code(s): R09.89 - Other specified symptoms and signs involving the circulatory and respiratory systems (4) COPD (chronic obstructive pulmonary disease) Status: Chronic Code(s): J44.9 - Chronic obstructive pulmonary disease, unspecified (5) Rheumatoid arthritis Status: Chronic Code(s): M06.9 - Rheumatoid arthritis, unspecified Type of Wound Date of Service: 11/07/18 Chief Complaint: Nonhealing ulcer to left lower extremity for 3 months status post traumatic injury. History of Wound: This is a 63-year-old white female with a past medical history as listed above who presents to the wound healing center today with complaint of nonhealing ulcer to left lateral lower extremity for 3 months.She does have a past medical history of rectal cancer, rheumatoid arthritis, PVD, CAD, and osteopenia. She is a current 1 pack/day smoker. She notes that initially she fell on 06/28 and hit the left lower leg on a metal object. She states that at the time there was no opening in the skin. However shortly after a scab. And then the skin opened up. She states that she has been seen by her primary care provider over the past couple weeks who is placed her on a course of Bactrim DS and that she has been utilizing Bactroban ointment daily and covering with gauze. She denies any heavy drainage from the site and denies any redness, fever, chills, warmth, chest pain or pressure, syncope or presyncopal episodes. Progress of Wound: Ulceration healed, site is epithelialized without any signs of infection at this time. Patient notes no increase in pain or drainage. The patient otherwise denies any fever, chills, nausea, vomiting, shortness of breath, chest pain or pressure, palpitations, orthopnea, lower extremity edema, syncope or presyncopal episodes. - Physical Exam Vital Signs Temp Pulse Resp BP 98 F 85 18 185/100 H 11/07/18 14:40 11/07/18 14:40 11/07/18 14:40 11/07/18 14:40 General: Alert, Oriented x3, Cooperative, No apparent distress HEENT: Atraumatic Oral: Moist Mucosa Lungs: Clear to auscultation Cardiovascular: Regular rate Abdomen: Soft, Non Tender Extremities: No clubbing, No cyanosis, No edema Skin: Ulcer/ Wound - Ulceration to left lower extremity healed Musculoskeletal: Arthritic Changes Neurological: Neuro grossly intact Psych/Mental Status: Normal Affect, Appropriate, Alert and oriented to time, place, person, mood and affect Assessment/Plan Assessment: See above diagnoses Plan: The patient was seen and examined at the wound center today and was updated on the plan of care. Her ulcer is healed without any signs of infection at this time. Educated on the importance of utilizing double layer Tubigrip for compression and also on prevention of new wounds from occurring. Patient will be discharged from the wound healing center today. This note was generated with [employer] dictation software. It may contain incorrect words, spelling, and punctuation that were not noted in checking the note before signing. Code Visit Office Visits / Consults: [id number] OV L3 Est
== END 2018-12-05 23:59 ==
LOC: WC 13:28
PROVIDERS: Family Provider Family Medicine; PCP Family Medicine; Referring Provider Nurse Practitioner Family; Visit Provider Nurse Practitioner Family
DX: L97.922 Non-pressure chronic ulcer of unspecified part of left lower leg with fat layer exposed (principal); R60.0 Localized edema; R09.89 Other specified symptoms and signs involving the circulatory and respiratory systems; J44.9 Chronic obstructive pulmonary disease, unspecified; M06.9 Rheumatoid arthritis, unspecified; Z85.048 Personal history of other malignant neoplasm of rectum, rectosigmoid junction, and anus; M85.80 Other specified disorders of bone density and structure, unspecified site; I25.10 Atherosclerotic heart disease of native coronary artery without angina pectoris; I73.9 Peripheral vascular disease, unspecified
CPT/HCPCS: 99212; G0463

== ENCOUNTER 2019-04-23 07:56 | Inpatient (IN) | payer MEDICARE, SELFPAY ==
[2019-04-23] VITALS (21 sets, daily range): BP systolic 109–151; BP diastolic 62–91; PULSE 80–101; RESP 16–22; TEMP 36.6–36.8; O2SAT 89–96; BMI 38.7; BMI 37.9
--- NOTE | 2019-04-23 08:16 | RAD_ITS ---
STUDY: X-RAY CHEST REASON FOR EXAM: Female, 64 years old. Dyspnea, cough TECHNIQUE: Single AP portable view of the chest. COMPARISON: Comparison is made with prior examination dated April 11, 2017. FINDINGS: EKG electrodes are seen. Hyperinflation. The lungs are clear. There is no demonstrated pleural abnormality. Normal size heart. Normal mediastinum and giorgio. Normal visualized pulmonary arteries. Normal visualized aortic arch and descending thoracic aorta. Normal visualized thoracic spine. Normal visualized ribs, clavicles, and shoulders. There is no demonstrated abnormality of the visualized soft tissue structures of the upper abdomen. RAD/Chest 1 View (Portable) IMPRESSION: Hyperinflation. The lungs are clear. Electronically Signed: Cash Estrada, at 9:33 EDT , Service support ,
--- NOTE | 2019-04-23 08:17 | EKG12_ITS ---
Test Reason : SOB Blood Pressure : / mmHG Vent. Rate : 091 BPM Atrial Rate : 091 BPM P-R Int : 138 ms QRS Dur : 084 ms QT Int : 348 ms P-R-T Axes : 076 065 084 degrees QTc Int : 428 ms Normal sinus rhythm Nonspecific ST and T wave abnormality Abnormal ECG Confirmed by RICO FERNANDES, NATY ([id number]), website/blog editor YANE VILLALTA ([id number]) on 04/28/2019 11:23:31 AM Referred By: DELFINO Confirmed By:EMERITA GÓMEZ MD
--- NOTE | 2019-04-23 08:18 | ED.VIS.GEN ---
History of Present Illness Chief Complaint: Shortness of Breath Informant: Patient Narrative: Patient presents the emergency department with 2 to 3 weeks of progressively worsening dyspnea and wheezing. She notes yellow sputum production which is different from her baseline. She notes some rhinorrhea. No fevers or chills. No vomiting or diarrhea. She states that she is in between Medicare plans and was trying to wait until she got coverage before she was seen. She has a history of rheumatoid arthritis but is not on prednisone. Past Medical History - Allergies and Home Meds Allergies/Adverse Reactions: Allergies cefadroxil hydrate [From Durice] Allergy (Verified 04/23/19 08:00) Itching Primary Care Physician: Delta Mane MD [Primary Care Provider] - Surgical History: appendectomy, tonsillectomy, - - section, surgery for anal cancer. Smoking Status: Current some day smoker - Family History Maternal Family History: Reports: - - mother with short term memory problems Paternal Family History: Reports: - - of pneumonia and has copd. Review of Systems General: Denies: Chills, Fever, Sweats Eyes: Denies: Visual changes - bilaterally, Diplopia ENT: Denies: Rhinorrhea, Sore throat Cardiovascular: Denies: Chest pain, Palpitations Respiratory: Reports: Dyspnea, Cough, Sputum, Dyspnea on exertion Gastrointestinal: Denies: Abdominal pain, Nausea, Vomiting, Diarrhea, Melena, Hematochezia Genitourinary: Denies: Dysuria, Hematuria, Frequency Musculoskeletal: Denies: Back pain, Extremity Pain Skin: Denies: Rash, Wounds Neurological: Denies: Headache, Weakness, Numbness Physical Exam Vital Signs/Narrative: Vital Signs Temp Pulse Resp BP Pulse Ox 04/23/19 07:57 98 F 101 H 18 144/91 H 90 Inital Vital Signs reviewed: Yes General: Well nourished, Well developed, Obese, No Acute Distress Head: Normocephalic, Atraumatic Eyes: Perrl, EOMI ENT: Moist mucous membranes, Nasal congestion Neck: Supple, Nontender Cardiovascular: Regular rate, Regular rhythm, No murmurs Respiratory: No distress, Chest nontender, Wheezing, Decreased Air Movement Abdomen: Soft, Nontender, Nondistended, Normal bowel sounds Back: Nontender, Normal Inspection Extremities: Nontender, No edema, - - Chronic rheumatoid changes Skin: Normal color, No rash Neurological: Alert, Oriented x3, Cranial nerves II-XII grossly intact, Normal Strength, Normal Sensation Psychological: Normal affect, Normal Mood Diagnostic/Tx/Re-eval - EKG Initial EKG Interpretation: Sinus Rhythm - Medical Decision Making White count is 11 and other labs are negative. Chest x-ray shows no pneumonia. Patient received breathing treatments and Solu-Medrol. Because of the change in sputum production we also gave azithromycin. Repeat examination shows her to still have expiratory wheezing but improved aeration. We ambulated her down the hallway and she became significantly dyspneic and pulse ox dropped to 87% on room air. At this point plan will be admission into the hospital. ED Disposition - Plan for ED Patient: Disposition: Acute Care Hospital [facility] Diagnosis: COPD exacerbation, Hypoxia Referrals: Delta Mane MD [Primary Care Provider] -
[2019-04-23] MEDS: Ipratropium/Albuterol Sulfate 3 ML AMPUL.NEB INHALATION ×4 (08:41→23:45)
[2019-04-23] MEDS: MethylPREDNISolone 125 MG/2 ML Vial IV (08:41)
[2019-04-23 08:52] LABS: Absolute Lymphocyte Count 0.99 X10^3/uL (0.83-4.51); Absolute Neutrophil Count 9.9 X10^3/uL (2.0-7.7); Basophil# 0.02 X10^3/uL; Basophil% 0.2 % (0-1); Eosinophil# 0.03 X10^3/uL; Eosinophils% 0.3 % (0-5); Hematocrit 41.4 % (37-47); Hemoglobin 13.1 g/dL (12.0-15.0); Lymphocyte # 0.99 X10^3/ul (4.0); Lymphocyte % 8.6 % (19-41); Mean Corp Hgb Conc 31.6 g/dL (32-36); Mean Corpuscular Hgb 27.1 pg (27.0-32.0); Mean Corpuscular Volume 85.7 fL (81-99); Mean Platelet Vol. 9.6 fl (6.2-12.0); Monocyte# 0.49 X10^3/uL; Monocyte% 4.3 % (0-10); NRBC Flagged by Analyzer 0 % (0-5); Neutrophil # 9.88 X10^3/uL (2.7-7.7); Neutrophil % 86.2 % (47-70); Platelet Count 300 K/mm3 (150-450); RBC Distribution Width SD 43.5 fl (35.1-43.9); Red Blood Count 4.83 M/mm3 (4.2-5.4); White Blood Count 11.5 K/mm3 (4.4-11.0)
[2019-04-23] MEDS: Albuterol 2.5 MG/3 ML VIAL.NEB. INHALATION ×3 (08:53→10:40)
[2019-04-23 09:11] LABS: AST(SGOT) 13 U/L (15-37); Alanine Aminotransfer ALT/SGPT 14 U/L (13-56); Albumin, Serum 3.2 g/dL (3.2-5.0); Alkaline Phosphatase 151 U/L (45-117); Anion Gap 6 (5-15); BUN 13 mg/dL (7-18); BUN/Creat Ratio 16.1 RATIO (10-20); Bilirubin, Direct 0.14 mg/dL (0.00-0.30); Calcium,Total 8.4 mg/dL (8.5-10.1); Chloride 104 mmol/L (98-107); Creatinine, Serum 0.81 mg/dL (0.55-1.02); EST Glomerular Filtration Rate 76 mL/min (>60); Est Glom Filt Rate - Afr Amer 92 mL/min (>60); Estimated Creatinine Clearance 64.82 ml/min; Globulin 4.5 g/dL (2.2-4.2); Glucose 110 mg/dL (74-106); Potassium 3.7 mmol/L (3.5-5.1); Protein, Total 7.7 g/dL (6.4-8.2); Sodium Level 137 mmol/L (136-145)
[2019-04-23 09:21] LABS: Lactic Acid 1.2 mmol/L (0.4-1.9)
--- NOTE | 2019-04-23 10:14 | NURSING ---
DR CHELE SALEH
--- NOTE | 2019-04-23 10:18 | NURSING ---
MED SURG COPD EXAC ASHELFA[facility]
--- NOTE | 2019-04-23 11:25 | HP.PCM_ITS ---
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 (5) Rheumatoid arthritis Status: Chronic (6) COPD (chronic obstructive pulmonary disease) Status: Chronic History of Present Illness Date of Admission: 04/23/19 Chief Complaint: Shortness of breath, cough, sinus drainage. The patient is a 64 year old F with past medical history as mentioned above presented to the emergency room because of shortness of breath, cough and sinus drainage. Her symptoms has been going on for at least 3 weeks with slowly progressively increasing shortness of breath, mainly on mild to moderate activity, sometimes relieved with rest, associated with productive cough with yellow sputum as well as wheezing and sinus drainage. She was delaying to seek medical attention because she has no insurance. In the last several days, her symptoms got worse and she decided to come to ER today although she still thinks that she has no insurance. Apparently, she does have Medicaid coverage now. She denied fever or chills. She denied recent travel inside or outside the country. She mentioned that her grandson has been coughing and sneezing and he is 5 years old.. In the emergency department, patient was dyspneic and tachypneic, tachycardic and pulse ox was 90% on room air. She received IV Solu- Medrol, DuoNeb and albuterol breathing treatment. According to ER physician, her pulse ox went down to 87% on room air with ambulation. Patient continued to have significant wheezing and shortness of breath. Her routine blood work was remarkable for minimal leukocytosis, otherwise normal. LFT was unremarkable. Lactic acid was normal. EKG revealed normal sinus rhythm without evidence of acute segment changes. Troponin was negative. Chest x-ray showed no acute findings, no infiltrate or consolidation. She is being admitted for acute COPD exacerbation with hypoxia. Past Medical History Past Medical History (Chronic Problems): Chronic Problems Hypothyroidism (Chronic) Hypertension (Chronic) DVT (deep venous thrombosis) (Chronic) 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 Rheumatoid arthritis (Chronic) COPD (chronic obstructive pulmonary disease) (Chronic) Allergies cefadroxil hydrate [From Duricef] Allergy (Verified 04/23/19 08:00) Itching Home Medications: Ambulatory Orders Medication Instructions Recorded Hydrocodone Bitart/Apap 5-325 1 tablet PO Q6H PRN PRN 07/08/15 [[place] 5/325] Naproxen Sodium [Aleve] 440 mg PO Q12H PRN PRN 07/08/15 Albuterol Inhaler [Ventolin Hfa] 2 puff INHALATION Q4H PRN PRN #3 01/21/16 inhaler Cetirizine HCl [Zyrtec] 10 mg PO DAILY 04/11/17 Levothyroxine Sodium 25 mcg PO DAILY 04/11/17 Lisinopril 5 mg PO DAILY 09/12/18 Fluticasone 0.05% [Flonase Nasal 2 spray NASAL DAILY 04/23/19 [place]] Pantoprazole Sodium [Protonix] 40 mg PO DAILY 04/23/19 Surgical History: appendectomy, tonsillectomy, - - section, surgery for anal cancer. 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 Review of Systems Constitutional: Reports: Malaise. Denies: Anorexia, Chills, Fever, Weakness Eyes: Denies: Blurred vision, Double vision, Drainage, Redness HEENT: Reports: Hearing Changes, Nasal Congestion, Sinus Drainage. Denies: D ifficulty Hearing, Ear Pain, Eye Pain Cardiovascular: Denies: Chest Pain, Chest Pressure, Chest Tightness, Edema, Light Headedness, Palpitations Respiratory: Reports: Cough, Shortness of Breath, Shortness of breath upon exertion, Sputum production, Wheezing. Denies: Pleuritic Pain Gastrointestinal: Denies: Abdominal Pain, Constipation, Diarrhea, Nausea, Vomiting Genitourinary: Denies: Dysuria, Frequency, Hematuria Musculoskeletal: Denies: Arm Pain, Back Pain, Foot Pain Skin: Denies: Dryness, Rash Neurological: Denies: Balance problems, Double vision, Change in Speech, Slurred speech, Confusion, Incoordination, Numbness Psychiatric: Denies: Anxiety, Depression Endocrine: Denies: Change in Body Habitus, Polydipsia, Polyuria VTE Information - Inpt Only VTE Present on Admission: No VTE Mechan Device Prophylaxis: None VTE Pharm Prophylaxis ordered?: Yes - Physical Exam Vitals/I&O's: Vital Signs Temp Pulse Resp BP Pulse Ox 98.0 F 92 20 H 130/76 H 91 04/23/19 10:32 04/23/19 10:32 04/23/19 10:32 04/23/19 10:32 04/23/19 10:32 Oxygen Delivery Method Room Air Weight: 234 lb 14.4 oz Body Mass Index (BMI) 37.9 General: Alert, Oriented x3, Cooperative, - - Minimally short of breath. HEENT: Atraumatic, PERRLA, EOMI, Normocephalic Oral: Moist Mucosa, No Gingival or Mucosal Lesions/ Ulcerations Neck: Supple, No JVD, Negative Carotid Bruits, Trachea Midline, Thyroid Normal Size and Texture Lungs: No rhonchi, No rales, Diminished, Short of Breath, Wheezes, - - Decreased breath sounds bilateral, bilateral expiratory wheezes. Cardiovascular: Regular rate, Regular Rhythm, Normal S1, Normal S2, PMI Normal Abdomen: Bowel Sounds Present, Soft, Non Tender, Non-Distended, No Hepato-splenomegaly Extremities: No clubbing, No cyanosis, No edema Skin: No rashes, No breakdown Lymphatic: No Cervical, Supraclavicular, or Inguinal Adenopathy Neurological: Cranial nerves II-XII grossly intact, Motor Exam 5/5 strength throughout Psych/Mental Status: Normal Affect, Appropriate, Alert and oriented to time, place, person, mood and affect Laboratory Results 04/23/19 08:35: WBC 11.5 H, RBC 4.83, Hgb 13.1, Hct 41.4, MCV 85.7, MCH 27.1, MCHC 31.6 L, RDW Std Deviation 43.5, RDW Coeff of Kanika 14.0, Plt Count 300, MPV 9.6, Immature Gran % (Auto) 0.400, Neut % (Auto) 86.2 H, Lymph % (Auto) 8.6 L, [place] % (Auto) 4.3, Eos % (Auto) 0.3, Baso % (Auto) 0.2, Absolute Neuts (auto) 9.9 H, Absolute Lymphs (auto) 0.99, Nucleated RBC % 0 04/23/19 08:35: Sodium 137, Potassium 3.7, Chloride 104, Carbon Dioxide 27.0, Anion Gap 6, BUN 13, Creatinine 0.81, Estim Creat Clear Calc 64.82, Est GFR (MDRD) Af Amer 92, Est GFR (MDRD) Non-Af 76, BUN/Creatinine Ratio 16.1, Glucose 110 H, Calcium 8.4 L, Total Bilirubin 0.50, Direct Bilirubin 0.14, AST 13 L, ALT 14, Alkaline Phosphatase 151 H, Troponin I < 0.015, Total Protein 7.7, Albumin 3.2, Globulin 4.5 H 04/23/19 08:35: Lactic Acid 1.2 04/23/19 08:35: B-Natriuretic Peptide Pending Clinical Impression(s) from Imaging Studies Chest X-Ray 04/23/19 08:16 IMPRESSION: Hyperinflation. The lungs are clear. Electronically Signed: Cash Estrada, at 9:33 EDT , Service support , Current Medications Acetaminophen (Tylenol) 650 mg PO Q6H PRN PRN PRN Reason: Pain Score 1-10/Temp > 100.7 F Albuterol Sulfate (Ventolin Aerosols) 2.5 mg INHALATION Q2H PRN PRN PRN Reason: Shortness of Breath/Wheezing Albuterol/Ipratropium (Duoneb) 3 ml INHALATION Q4H.RT [facility] Enoxaparin Sodium (Lovenox) 40 mg SC DAILY [facility] Guaifenesin (Mucinex) 1,200 mg PO BID [facility] Levofloxacin (Levaquin Iv) 500 mg in 100 mls @ 100 mls/hr IV Q24 [facility] Stop: 04/28/19 10:59 Methylprednisolone (Solu-Medrol) 40 mg IV Q8 [facility] Ondansetron HCl (Zofran) 4 mg IV Q8H PRN PRN PRN Reason: NAUSEA/VOMITING Senna/Docusate Sodium (Senokot-S, Veronica-Colace) 2 tablet PO BID PRN PRN PRN Reason: Constipation Zolpidem Tartrate (Ambien (Generic)) 5 mg PO QHS PRN PRN PRN Reason: INSOMNIA Assessment/Plan This is a 64 years old female patient presented to the emergency room because of shortness of breath, productive cough, wheezing and sinus drainage and she was found to have acute COPD exacerbation and her pulse ox dropped to 87% on ambulation after she received IV Solu-Medrol, DuoNeb and albuterol. #1 acute COPD exacerbation/hypoxia: Chest x-ray showed no acute findings. EKG reviewed, unremarkable. Routine blood work was unremarkable. It is probably triggered by acute viral URTI. No recent travel inside or outside the country. Plan: Admit to PCU, telemetry, DuoNeb every 4 hours, albuterol PRN, IV Solu- Medrol, IV Levaquin, sputum culture, respiratory panel for viruses, oxygen by nasal cannula to keep O2 saturation more than 92%, incentive spirometer. #2 hypertension: Blood pressure stable, continue lisinopril. #3 rheumatoid arthritis: Stable, continue as needed Aleve and [place]. #4 hypothyroidism: Stable, continue levothyroxine. #5 history of DVT: Completed treatment long time ago. #6 history of anal squamous cell carcinoma: Status post surgery, chemotherapy and radiation, in remission, stable. #7 tobacco abuse: NicoDerm patch if desired. #8 DVT prophylaxis: Subcu Lovenox. This note was generated with [employer] dictation software. It may contain incorrect words, spelling, and punctuation that were not noted in checking the note before signing. Inpatient E&M: 78862 Init Hosp L2
[2019-04-23 11:55] LABS: BNP,B-Type NATRIURETIC PEPTIDE 23.1 pg/mL (0-100)
[2019-04-23] MEDS: levoFLOXacin IV 500 MG/100 ML BAG 100 MG IV (12:33)
[2019-04-23] MEDS: Lisinopril 5 MG Tablet PO (13:53)
[2019-04-23] MEDS: Levothyroxine 25 MCG TABLET PO (13:53)
[2019-04-23] MEDS: guaiFENesin 1,200 MG Tablet 1200 MG PO ×2 (13:53→21:15)
[2019-04-23] MEDS: Enoxaparin 40 MG/0.4 ML Syringe SC (13:53)
[2019-04-23] MEDS: Naproxen 250 MG Tablet 500 MG PO (13:54)
[2019-04-23] MEDS: Loratadine 10 MG Tablet PO (13:54)
[2019-04-23] MEDS: 0.9% Saline Lock 10 ML Syringe IV ×2 (13:54→21:15)
[2019-04-23] MEDS: HYDROcodone Bitartrate/Apap 5/325 Tablet PO ×2 (17:02→23:17)
[2019-04-24] VITALS (7 sets, daily range): BP systolic 122–125; BP diastolic 71–75; PULSE 63–104; RESP 16–20; TEMP 36.6–37; O2SAT 90–96
[2019-04-24] MEDS: Albuterol 2.5 MG/3 ML VIAL.NEB. INHALATION (04:51)
[2019-04-24] MEDS: Naproxen 250 MG Tablet 500 MG PO (05:20)
[2019-04-24] MEDS: Levothyroxine 25 MCG TABLET PO (05:21)
[2019-04-24] MEDS: 0.9% Saline Lock 10 ML Syringe IV (05:21)
[2019-04-24] MEDS: Ipratropium/Albuterol Sulfate 3 ML AMPUL.NEB INHALATION (07:22)
--- NOTE | 2019-04-24 08:37 | PCM.DC ---
- Discharge Diagnoses Current Active Problems: Current Active and Chronic Problems Hypothyroidism (Chronic) Hypertension (Chronic) You will use the following diet at home:: Cardiac Your food should be the consistency of: Regular Discharge Activity: Return to Normal Activity Weight Bearing Status: Full weight bearing Call your doctor if you observe: Fever of 101 or Higher, Shortness of breath, Dizziness, Fainting spells, Chest pain, Increased palpitations (irregular heartbeat), Uncontrolled pain Allergies/Adverse Reactions: Allergies [place] [facility] [place] Allergy (Verified 04/23/19 08:00) Itching Medications to take at Discharge Hydrocodone Bitart/Apap 5-325 [[place] 5/325] 1 tablet PO Q6H PRN PRN 07/08/15 Naproxen Sodium [Aleve] 440 mg PO Q12H PRN PRN 07/08/15 Albuterol Inhaler [Ventolin Hfa] 2 puff INHALATION Q4H PRN PRN #3 inhaler 01/21/16 Cetirizine HCl [Zyrtec] 10 mg PO DAILY 04/11/17 Levothyroxine Sodium 25 mcg PO DAILY 04/11/17 Lisinopril 5 mg PO DAILY 09/12/18 Fluticasone 0.05% [Flonase Nasal [place]] 2 spray NASAL DAILY 04/23/19 Pantoprazole Sodium [Protonix] 40 mg PO DAILY 04/23/19 Levofloxacin [Levaquin] 500 mg PO DAILY #5 tab 04/24/19 Prednisone 40 mg PO DAILY #10 tab 04/24/19 The following prescriptions were given: Levofloxacin [Levaquin] 500 mg PO DAILY #5 tab Transmission Status: Pending to [facility] Prednisone 40 mg PO DAILY #10 tab Transmission Status: Pending to [facility] Primary Care Physician: Delta Mane MD [Primary Care Provider] - Please follow up with your Primary Care Physician in: 1-2 weeks. Test Results: Test results from this visit will be discussed in further detail at your follow-up appointment, if applicable.
--- NOTE | 2019-04-24 10:03 | DS.PCM_ITS ---
Discharge Date and Diagnosis Date of Admission: 04/23/19 Date of Discharge: 04/24/19 - Primary Discharge Diagnosis #1 acute COPD exacerbation. #2 hypoxia. 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 Rheumatoid arthritis (Chronic) COPD (chronic obstructive pulmonary disease) (Chronic) Hospital Course and Treatment Imaging Results: Clinical Impression(s) from Imaging Studies Chest X-Ray 04/23/19 08:16 IMPRESSION: Hyperinflation. The lungs are clear. Electronically Signed: Cash Estrada, at 9:33 EDT , Service support , Operations: None Procedures: None Summary of Care Provided: Patient seen and examined on the day of discharge and appeared stable to be discharged home. Her symptoms dramatically improved unexpectedly. Denies any more shortness of breath, no wheezing. Still having some sinus drainage. Denies fever chills. Vital signs are stable. Ambulatory pulse oximeter was 91% on room air. The patient is a 64 year old F presented to the emergency room because of shortness of breath, productive cough, wheezing and sinus drainage that has been going on for several weeks and she was found to have acute COPD exacerbation complicated by hypoxia. Patient did have symptoms of upper respiratory tract infection which probably viral but was not so severe. There was no history of travel outside the country or inside the country. She did mention that her grandson who was 5 years old has been coughing and sneezing at home. Upon admission, patient was dyspneic, tachypneic with audible wheezing after she received IV Solu-Medrol and breathing treatment in the emergency department. Her pulse oximeter went down to 87% with ambulation in the emergency department after she received IV Solu-Medrol, DuoNeb and albuterol. Her chest x-ray showed no acute findings. In the floor, she was treated with IV steroids, bronchodilators and IV Levaquin. Respiratory panel for viruses were negative. Blood culture and sputum culture were negative at the time of discharge. With above-mentioned treatment, patient symptoms improved dramatically and unexpectedly. On the day of discharge, patient denied any more shortness of breath or wheezing although she still have some sinus drainage. She remained afebrile. Her routine blood work was unremarkable. Patient discharged home in a stable medical condition, discharged on prednisone 40 mg p.o. daily for 5 days, discharged on Levaquin 500 mg p.o. daily for 5 days, continued on her other previous home medications without any changes, recommended follow-up with PCP in 1 to 2 weeks. - Physical Exam Vitals/I&O's: Vital Signs Temp Pulse Resp BP Pulse Ox 97.9 F 104 H 19 H 122/71 H 93 04/24/19 04:43 04/24/19 08:16 04/24/19 07:22 04/24/19 04:43 04/24/19 08:20 Oxygen Flow Rate (L/min) 93 Oxygen Delivery Method Room Air Weight: 234 lb 14.4 oz Body Mass Index (BMI) 37.9 Intake and Output for Last 24 Hours 04/22/19 04/23/19 04/24/19 23:59 23:59 23:59 Intake Total 805 / 805 Balance 805 / 805 General: Alert, Oriented x3, Cooperative, No apparent distress HEENT: Atraumatic, PERRLA, EOMI, Normocephalic Oral: Moist Mucosa, No Gingival or Mucosal Lesions/ Ulcerations Neck: Supple, No JVD, Negative Carotid Bruits, Trachea Midline, Thyroid Normal Size and Texture Lungs: Clear to auscultation, Normal air movement, No rhonchi, No wheeze, No rales, Diminished Cardiovascular: Regular rate, Regular Rhythm, Normal S1, Normal S2, PMI Normal Abdomen: Bowel Sounds Present, Soft, Non Tender, Non-Distended, No Hepato- splenomegaly Extremities: No clubbing, No cyanosis, No edema Skin: No rashes, No breakdown Lymphatic: No Cervical, Supraclavicular, or Inguinal Adenopathy Neurological: Cranial nerves II-XII grossly intact, Neuro grossly intact Psych/Mental Status: Normal Affect, Appropriate Microbiology Past 72 Hours 04/23/19 13:15 Mucosa - Nasopharyngeal Respiratory Panel (PCR) - Final Laboratory Results 04/23/19 08:35: B-Natriuretic Peptide 23.1 Current Medications Acetaminophen (Tylenol) 650 mg PO Q6H PRN PRN PRN Reason: Pain Score 1-10/Temp > 100.7 F Hydrocodone Bitart/Acetaminophen ([place] 5mg-325mg) 1 tablet PO Q6H PRN PRN PRN Reason: pain Last Admin: 04/23/19 23:17 Dose: 1 tablet Documented by: Albuterol Sulfate (Ventolin Aerosols) 2.5 mg INHALATION Q2H PRN PRN PRN Reason: Shortness of Breath/Wheezing Last Admin: 04/24/19 04:51 Dose: 2.5 mg Documented by: Albuterol/Ipratropium (Duoneb) 3 ml INHALATION Q4H.RT [facility] Last Admin: 04/24/19 07:22 Dose: 3 ml Documented by: Enoxaparin Sodium (Lovenox) 40 mg SC DAILY [facility] Last Admin: 04/23/19 13:53 Dose: 40 mg Documented by: Guaifenesin (Mucinex) 1,200 mg PO BID [facility] Last Admin: 04/23/19 21:15 Dose: 1,200 mg Documented by: Levofloxacin (Levaquin Iv) 500 mg in 100 mls @ 100 mls/hr IV Q24 [facility] Stop: 04/27/19 10:59 Last Infusion: 04/23/19 14:00 Dose: Infused Documented by: Levothyroxine Sodium (Synthroid) 25 mcg PO DAILY@0600 [facility] Last Admin: 04/24/19 05:21 Dose: 25 mcg Documented by: Lisinopril (Zestril) 5 mg PO DAILY [facility] Last Admin: 04/23/19 13:53 Dose: 5 mg Documented by: Loratadine (Claritin) 10 mg PO DAILY [facility] Last Admin: 04/23/19 13:54 Dose: 10 mg Documented by: Methylprednisolone (Solu-Medrol) 40 mg IV Q8 [facility] Last Admin: 04/24/19 05:21 Dose: 40 mg Documented by: Naproxen (Naprosyn) 500 mg PO Q12H PRN PRN PRN Reason: Pain Score 1-10/10 Last Admin: 04/24/19 05:20 Dose: 500 mg Documented by: Ondansetron HCl (Zofran) 4 mg IV Q8H PRN PRN PRN Reason: NAUSEA/VOMITING Senna/Docusate Sodium (Senokot-S, Veronica-Colace) 2 tablet PO BID PRN PRN PRN Reason: Constipation Sodium Chloride () 10 - 40 ml IV UD PRN PRN Reason: SALINE FLUSH Last Admin: 04/24/19 05:21 Dose: 20 ml Documented by: Zolpidem Tartrate (Ambien (Generic)) 5 mg PO QHS PRN PRN PRN Reason: INSOMNIA Discharge Activity: Return to Normal Activity Weight Bearing Status: Full weight bearing Call your doctor if you observe: Fever of 101 or Higher, Shortness of breath, Dizziness, Fainting spells, Chest pain, Increased palpitations (irregular heartbeat), Uncontrolled pain Home Medications: Medications to take at Discharge Hydrocodone Bitart/Apap 5-325 [[place] 5/325] 1 tablet PO Q6H PRN PRN 07/08/15 Naproxen Sodium [Aleve] 440 mg PO Q12H PRN PRN 07/08/15 Albuterol Inhaler [Ventolin Hfa] 2 puff INHALATION Q4H PRN PRN #3 inhaler 01/21/16 Cetirizine HCl [Zyrtec] 10 mg PO DAILY 04/11/17 Levothyroxine Sodium 25 mcg PO DAILY 04/11/17 Lisinopril 5 mg PO DAILY 09/12/18 Fluticasone 0.05% [Flonase Nasal [place]] 2 spray NASAL DAILY 04/23/19 Pantoprazole Sodium [Protonix] 40 mg PO DAILY 04/23/19 Levofloxacin [Levaquin] 500 mg PO DAILY #5 tab 04/24/19 Prednisone 40 mg PO DAILY #10 tab 04/24/19 Following Prescrptions Were Given to Patient: Levofloxacin [Levaquin] 500 mg PO DAILY #5 tab Transmission Status: Received by [facility] Prednisone 40 mg PO DAILY #10 tab Transmission Status: Received by [facility] Primary Care Physician: Delta Mane MD [Primary Care Provider] - Please follow up with your Primary Care Physician in: 1-2 weeks. Disposition: Home Minutes spent on discharge:: 27 Patient Condition:: Stable Medical Necessity - Tobacco Use Smoking Status: Current every day smoker Tobacco Use: Cigarettes Meaningful Use Info Meaningful Use Diagnoses (Choose all that apply): None applicable Inpatient E&M: 15440 [facility]
--- NOTE | 2019-04-24 11:00 | CASEMGMT ---
RN CM Face to Face with patient for initial transition planning/care coordination assessment. RN CM introduced self and role at [facility]. Patient sitting in chair, alert and oriented. Patient willing to participate in assessment and is able to answer all questions appropriately. Care providers, pharmacy, and demographics verified. Patient wishes to discharge home, denies need for home health at this time. Patient states she has no further needs or concerns at this time. CM to follow for discharge planning needs that may arise. PCP: Alhaji Specialists: none Preferred Pharmacy: [facility] Insurance: [facility] Prescription Benefit: none, will have part D next month Living Will/HPOA: none LNOK: Son Living Arrangements: Patient lives with son and grandson in single story home with 2-5 step and railing to enter the home. Transportation: self/son DME/HHC: Patient states she has nebulizer and inhalers at home but difficult to use inhalers. Patient would probably benefit from adding spacer to inhalers and nursing notified to update respiratory. Patient denies further needs at this time. Disposition Plan: Patient to discharge home with family support and follow-up plans in place. Larissa OLSEN, RN, CM
== END 2019-04-24 11:21 | disposition home or self-care (01) | DRG 192 ==
LOC: ED 10:14 → MS3 10:32
PROVIDERS: Admitting Provider Hospitalist; Emergency Provider Emergency Medicine; PCP Family Medicine; Visit Provider Hospitalist
DX: J44.1 Chronic obstructive pulmonary disease with (acute) exacerbation (principal); R09.02 Hypoxemia; I10 Essential (primary) hypertension; M06.9 Rheumatoid arthritis, unspecified; E03.9 Hypothyroidism, unspecified; J06.9 Acute upper respiratory infection, unspecified; B97.89 Other viral agents as the cause of diseases classified elsewhere; F17.210 Nicotine dependence, cigarettes, uncomplicated; Z86.718 Personal history of other venous thrombosis and embolism; Z85.048 Personal history of other malignant neoplasm of rectum, rectosigmoid junction, and anus; Z92.21 Personal history of antineoplastic chemotherapy; Z92.3 Personal history of irradiation
CPT/HCPCS: 71045; 80048; 80076; 83605; 83880; 84484; 85025; 87040; 87070; 87205; 87633; 93005; 94640; 94667; 99251; 99285; 99406; J7030; A4216; G0463

== ENCOUNTER 2020-06-26 19:01 | Emergency (ER) | payer MEDICARE, BC, SELFPAY ==
[2019-04-23 11:22] VITALS: BMI 37.9
[2020-06-26 19:02] VITALS: BP 143/77; PULSE 71; RESP 16; TEMP 36.2; O2SAT 98; BMI 37.9
[2020-06-26 19:05] VITALS: BP 143/77; PULSE 71; RESP 16; TEMP 36.2; O2SAT 98
--- NOTE | 2020-06-26 20:55 | EDS_ITS ---
HPI History of Present Illness Chief Complaint: Abscess Informant: patient Narrative Narrative: Patient is a 65-year-old female who presents to the emergency department for drainage from her left upper extremity. She has noticed a small bump in that arm approximately 6 months ago. She feels like it is getting larger and larger. Today it started to drain a foul-smelling yellow fluid. She is never had this have before in the past. No history of MRSA that she knows of. She denies any fevers or chills. No chest pain or shortness of breath. No nausea/vomiting. She believes she might have gotten a flu shot in that site previously. She has not been on any antibiotics for this. It was previously thought she had a lipoma there. She denies any significant pain. PFSH PFSH Home Medications hydrocodone-acetaminophen 1 tab PO Q6H PRN PRN 07/08/15 [History Last Taken 07/01/15] naproxen sodium [Aleve] 440 mg PO Q12H PRN PRN 07/08/15 [History Last Taken 01/07/16 08:00 440 mg] albuterol sulfate [Ventolin HFA] 2 puff INHALATION Q4H PRN PRN #3 inhaler 01/21/16 [Rx Last Taken Unknown] cetirizine [Zyrtec] 10 mg PO DAILY 04/11/17 [History Last Taken Unknown] levothyroxine 25 mcg PO DAILY 04/11/17 [History Last Taken Unknown] lisinopril 5 mg PO DAILY 09/12/18 [History Last Taken Unknown] fluticasone propionate 2 spray NASAL DAILY 04/23/19 [History Last Taken Unknown] pantoprazole 40 mg PO DAILY 04/23/19 [History Last Taken Unknown] levofloxacin 500 mg PO DAILY #5 tab 04/24/19 [Rx Last Taken Unknown] prednisone 40 mg PO DAILY #10 tab 04/24/19 [Rx Last Taken Unknown] doxycycline hyclate 100 mg PO BID 7 Days #14 cap 06/26/20 [Rx Last Taken Unknown] Allergy/AdvReac Type Severity Reaction Status Date / Time cefadroxil hydrate Allergy Itching [place]/26/20 19:01 [place] [facility] [place] History Smoking Status: Current every day smoker ROS ROS ED Constitutional Constitutional ED: Denies chills or fever(s) Eyes Eyes: Denies change in vision ENT ENT ED: Denies epistaxis or rhinorrhea Cardiovascular Cardiovascular: Denies chest pain or palpitations Respiratory/Chest Respiratory/Chest: Denies cough, dyspnea or dyspnea on exertion Gastrointestinal Gastrointestinal: Denies abdominal pain, diarrhea, nausea or vomiting Musculoskeletal Musculoskeletal: Denies back pain or neck pain Integumentary Reports abscess; Denies rash Neurologic Neurologic: Denies dizziness, headache(s) or weakness EXAM Physical Exam Const Vital Signs: 06/26/20 19:02 06/26/20 19:05 06/26/20 20:57 Temperature 97.2 F L 97.2 F L Temperature Source Temporal Temporal Pulse Rate 71 71 80 Respiratory Rate 16 16 18 Blood Pressure 143/77 H 143/77 H 139/77 H Blood Pressure Mean 99 99 Pulse Ox 98 98 96 Oxygen Delivery Method Room Air Room Air Positive well nourished and well developed General Appearance ED: well developed HEENT Reports normocephalic, head/scalp atraumatic and moist mucous membranes Eyes PERRL and EOMs intact bilaterally Neck supple Resp normal respiratory effort Cardio regular rate and regular rhythm Back/Spine no CVA tenderness Extremity normal to inspection General Extremety ED: Negative for tenderness Neuro oriented x3, CN's II-XII intact bilaterally and no sensory deficits noted Sensorium / Orientation: alert Motor Exam: strength 5/5 throughout Psych mental status grossly normal Skin Skin Narrative: Less than 1 cm open draining wound. Purulent discharge able to be expressed. Bedside ultrasound did show an indurated fluid collection. This does not fluctuate with compression. No overlying skin changes. MDM MDM MDM Narrative Medical decision making narrative: Patient presents to the ED for draining wound. This does appear to be an old abscess collection that has become indurated. I was able to express some purulent discharge. Will place on short course of antibiotics given the length of infection. She otherwise appears well. Vital signs within normal limits. She is to follow-up with her PCP. Return precautions are reviewed with her. Discharged home in stable condition. All questions answered. Discharge Plan Triage Chief Complaint: Abscess ED Provider: Narendra Sweeney Dx/Rx/DC Orders Clinical Impression: Abscess Instructions: ED Abscess Antibiotic Treatment Only Prescriptions: New doxycycline hyclate 100 mg capsule 100 mg PO BID 7 Days Qty: 14 RF: 0 No Action naproxen sodium [Aleve] 220 MG tablet 440 mg PO Q12H PRN PRN (Reason: Pain) RF: 0 hydrocodone-acetaminophen 1 TABLET tablet 1 tab PO Q6H PRN PRN (Reason: Pain) RF: 0 albuterol sulfate [Ventolin HFA] 1 INHALER inhaler 2 puff inhalation Q4H PRN PRN (Reason: Shortness of breath, wheezing) Qty: 3 RF: 3 levothyroxine 25 MCG tablet 25 mcg PO DAILY RF: 0 cetirizine [Zyrtec] 10 MG capsule 10 mg PO DAILY RF: 0 lisinopril 5 MG tablet 5 mg PO DAILY RF: 0 pantoprazole 40 MG tablet 40 mg PO DAILY RF: 0 fluticasone propionate 1 SPRAY spray,suspension 2 spray NASAL DAILY RF: 0 levofloxacin 500 MG tablet 500 mg PO DAILY Qty: 5 RF: 0 prednisone 20 MG tablet 40 mg PO DAILY Qty: 10 RF: 0 Primary Care Provider: Delta Mane Referrals: Delta Mane MD [Primary Care Provider] - 3-5 Days if not improving Disposition Disposition: Home, self care Discharge Date/Time: 06/26/20 20:58
[2020-06-26 20:57] VITALS: BP 139/77; PULSE 80; RESP 18; O2SAT 96
== END 2020-06-26 20:58 | disposition home or self-care (01) ==
PROVIDERS: Emergency Provider Emergency Medicine; PCP Family Medicine
DX: L02.414 Cutaneous abscess of left upper limb (principal); F17.200 Nicotine dependence, unspecified, uncomplicated
CPT/HCPCS: 99282

== ENCOUNTER 2021-01-16 06:58 | Inpatient (IN) | payer MEDICARE, BC, SELFPAY ==
[2021-01-16] VITALS (16 sets, daily range): BP systolic 132–159; BP diastolic 68–101; PULSE 67–98; RESP 18–26; TEMP 36.6–37; O2SAT 93–96; BMI 38.4
--- NOTE | 2021-01-16 07:33 | RAD_ITS ---
STUDY: X-RAY CHEST REASON FOR EXAM: Female, 65 years old. Chest pain TECHNIQUE: Single AP portable view of the chest. COMPARISON: 04/23/2019 FINDINGS: The lungs are clear and expanded. There is no demonstrated pleural abnormality. Normal size heart. Normal mediastinum and giorgio. Normal visualized pulmonary arteries. There is mild atherosclerotic tortuosity of the aortic arch and descending thoracic aorta. No demonstrated acute osseous changes. There is no demonstrated abnormality of the visualized soft tissue structures of the upper abdomen. RAD/Chest 1 View (Portable) IMPRESSION: No active pulmonary disease. Electronically Signed: Nahum Queen, at 8:19 EST Tel , Service support ,
--- NOTE | 2021-01-16 07:33 | EKG12_ITS ---
Test Reason : CP ADMISSION Blood Pressure : / mmHG Vent. Rate : 067 BPM Atrial Rate : 067 BPM P-R Int : 132 ms QRS Dur : 094 ms QT Int : 446 ms P-R-T Axes : 056 060 072 degrees QTc Int : 471 ms Normal sinus rhythm Normal ECG When compared with ECG of 23-APR-2019 08:25, Non-specific change in ST segment in Anterior leads T wave inversion no longer evident in Lateral leads Confirmed by BARBIE FERNANDES, PATRICIA ([id number]), dictionary editor SARA SOLARES ([id number]) on 01/18/2021 7:38:35 AM Referred By: JOSH Confirmed By:PATRICIA VALENTIN MD
--- NOTE | 2021-01-16 07:34 | ED.VIS.DYS ---
HPI History of Present Illness Chief Complaint: Shortness of Breath Narrative Narrative: 65-year-old female with history of COPD presenting with shortness of breath. Patient does admit to having symptoms of chills and body aches. No loss of taste or smell. She has felt feverish but has not had a temperature. She was seen on a televisit in [place] on 13 January and had a Covid PCR test which was negative. At that time she was put on doxycycline and prednisone. She has home nebulizers and has been using these. She states that the date of onset of her symptoms was 10 January. She does admit to some chest tightness associated with her difficulty breathing. She does not have chest pressure. She has been wheezing at home. Patient was given an albuterol treatment and Solu-Medrol 125 mg IV by EMS. Patient currently 90 to 93% on room air. She does not usually wear home oxygen. [facility] Medical History COPD (chronic obstructive pulmonary disease) GERD (gastroesophageal reflux disease) Hypertension Hypothyroidism Home Medications hydrocodone-acetaminophen 1 tab PO Q6H PRN PRN 07/08/15 [History Last Taken 07/01/15] naproxen sodium [Aleve] 440 mg PO Q12H PRN PRN 07/08/15 [History Last Taken 01/07/16 08:00 440 mg] albuterol sulfate [Ventolin HFA] 2 puff INHALATION Q4H PRN PRN #3 inhaler 01/21/16 [Rx Last Taken Unknown] cetirizine [Zyrtec] 10 mg PO DAILY 04/11/17 [History Last Taken Unknown] levothyroxine 25 mcg PO DAILY 04/11/17 [History Last Taken Unknown] lisinopril 5 mg PO DAILY 09/12/18 [History Last Taken Unknown] fluticasone propionate 2 spray NASAL DAILY 04/23/19 [History Last Taken Unknown] pantoprazole 40 mg PO DAILY 04/23/19 [History Last Taken Unknown] levofloxacin 500 mg PO DAILY #5 tab 04/24/19 [Rx Last Taken Unknown] prednisone 40 mg PO DAILY #10 tab 04/24/19 [Rx Last Taken Unknown] doxycycline hyclate 100 mg PO BID 7 Days #14 cap 06/26/20 [Rx Last Taken Unknown] Allergy/AdvReac Type Severity Reaction Status Date / Time cefadroxil hydrate Allergy Itching Verified 01/16/21 07:02 [[facility] Social History Smoking Status: Current every day smoker tobacco type: cigarettes ROS ROS ED Constitutional Constitutional ED: Reports chills and fever(s) Eyes Eyes: Denies blurry vision or change in vision ENT ENT ED: Denies rhinorrhea or sore throat Cardiovascular Cardiovascular: Reports chest pain; Denies palpitations Respiratory/Chest Respiratory/Chest: Reports cough, dyspnea and dyspnea on exertion Gastrointestinal Gastrointestinal: Reports nausea; Denies abdominal pain Genitourinary Genitourinary ED: Denies dysuria or hematuria Musculoskeletal Musculoskeletal: Denies arthralgias or myalgias Integumentary Denies abscess or rash Neurologic Neurologic: Denies headache(s), paresthesias or weakness Psychiatric Psychiatric: Denies anxiety or depression EXAM Physical Exam Const Vital Signs: 01/16/21 06:59 01/16/21 07:03 01/16/21 07:47 Temperature 97.8 F Temperature Source Oral Pulse Rate 72 Respiratory Rate 20 H Respiratory Effort Short of Breath Accessory Muscle Use Respiratory Pattern Tachypnea Blood Pressure 151/96 H Blood Pressure Mean 114 Pulse Ox 93 93 Oxygen Delivery Method Room Air Room Air Room Air Oxygen Flow Rate (L/min) 01/16/21 07:48 01/16/21 07:50 01/16/21 09:00 Temperature 98.6 F Temperature Source Temporal Pulse Rate 72 73 75 Respiratory Rate 22 H 22 H 18 Respiratory Effort Respiratory Pattern Tachypnea Blood Pressure 145/68 H 148/69 H Blood Pressure Mean 93 95 Pulse Ox 93 95 Oxygen Delivery Method Nasal Cannula Nasal Cannula Oxygen Flow Rate (L/min) 2 01/16/21 10:46 Temperature 98.3 F Temperature Source Temporal Pulse Rate 78 Respiratory Rate 26 H Respiratory Effort Respiratory Pattern Blood Pressure 156/87 H Blood Pressure Mean 110 Pulse Ox 94 Oxygen Delivery Method Nasal Cannula Oxygen Flow Rate (L/min) 2 Positive well nourished and obese General Appearance ED: NAD; Negative for pallor Nutritional Appearance: obese HEENT Reports moist mucous membranes atraumatic Eyes PERRL and EOMs intact bilaterally Resp Resp Narrative: Slightly tachypnea Auscultation: wheezes expiratory wheezes Cardio regular rate and regular rhythm Extremity normal to inspection General Extremety ED: Negative for edema or tenderness General Extremity: Negative for edema Neuro oriented x3 and CN's II-XII intact bilaterally Sensorium / Orientation: alert Motor Exam: strength 5/5 throughout Psych mental status grossly normal Thought Process: normal thought process Skin General Skin Exam: Negative for jaundice or pallor MDM MDM MDM Narrative Medical decision making narrative: Patient presenting with shortness of breath and chest pain. She states her shortness of breath going on since about 59. She is been treated with doxycycline, prednisone, aerosols and she states she has developed chest pain. I obtained an EKG which on my interpretation shows a normal sinus rhythm with a ventricular rate of 72 bpm without sign of ischemic change. Chest x-ray on my interpretation shows no acute cardiopulmonary process and the radiologist does agree. CBC shows no leukocytosis. Patient not lymphopenic. I did obtain her outpatient PCR Covid test which was negative. D-dimer is only slightly elevated at 0. 68 age-adjusted but is still positive. I feel this would be much higher if she had COVID-19. Renal function and electrolytes are normal. High-sensitivity troponin initially is 194. Patient was discussed with Dr. Jerome who recommended starting the patient on a heparin drip. I did obtain a CTA to rule out pulmonary embolism. Patient has a 8 cm pulmonary nodule but otherwise does not have any signs of Covid pneumonitis nor does she have PE or dissection. Delta troponin performed in the ER as the patient had delayed admission secondary to hospital being full. This is was nearly double at 393. Patient did need to be put on oxygen because she was dropping her O2 saturations and again she is having elevated troponin and heart strain. She was given breathing treatments and feels overall improved breathing. Cardiology did come to see her at the bedside. Patient will be admitted on a heparin drip and will likely be have a cardiac catheterization sometime today or tomorrow. Patient's respiratory panel did come back while she was in the emergency room and she is positive for influenza A however this is 6 days into her symptoms. I did report this to the hospitalist. Impression: 1. NSTEMI 2. COPD exacerbation 3. Influenza A 4. Hypoxic respiratory failure Lab Data Attestation: I reviewed the patient's lab results. Labs: Laboratory Results - last 24 hr 01/16/21 01/16/21 01/16/21 07:05 07:05 07:45 WBC 4.6 RBC 5.28 Hgb 14.6 Hct 46.1 MCV 87.3 MCH 27.7 MCHC 31.7 L RDW Std Deviation 43.9 RDW Coeff of Kanika 13.7 Plt Count 266 MPV 10.4 Immature Gran % (Auto) 0.200 Neut % (Auto) 63.8 Lymph % (Auto) 25.9 [place] % (Auto) 9.9 Eos % (Auto) 0.0 Baso % (Auto) 0.2 Absolute Neuts (auto) 3.0 Absolute Lymphs (auto) 1.20 Nucleated RBC % 0 Differential Comment SCANNED Reactive Lymphocytes 1+ PT INR APTT D-Dimer Quant (PE/DVT) 0.68 H* Sodium 139 Potassium 3.4 L Chloride 101 Carbon Dioxide 30.0 Anion Gap 8 BUN 22 H Creatinine 0.71 Estim Creat Clear Calc 51.81 Est GFR (MDRD) Af Amer 106 Est GFR (MDRD) Non-Af 88 BUN/Creatinine Ratio 31.0 H Glucose 97 Hemoglobin A1c Calcium 9.1 Troponin I High Sens 194 H* 01/16/21 01/16/21 01/16/21 08:50 09:30 10:10 WBC RBC Hgb Hct MCV MCH MCHC RDW Std Deviation RDW Coeff of Kanika Plt Count MPV Immature Gran % (Auto) Neut % (Auto) Lymph % (Auto) [place] % (Auto) Eos % (Auto) Baso % (Auto) Absolute Neuts (auto) Absolute Lymphs (auto) Nucleated RBC % Differential Comment Reactive Lymphocytes PT 12.0 INR 0.9 APTT 27.6 D-Dimer Quant (PE/DVT) Sodium Potassium Chloride Carbon Dioxide Anion Gap BUN Creatinine Estim Creat Clear Calc Est GFR (MDRD) Af Amer Est GFR (MDRD) Non-Af BUN/Creatinine Ratio Glucose Hemoglobin A1c 5.5 Calcium Troponin I High Sens 393 H* Radiography Diagnostic Testing: Clinical Impression(s) from Imaging Studies Chest X-Ray 01/16/21 07:33 IMPRESSION: No active pulmonary disease. Electronically Signed: Nahum Queen, at 8:19 EST Tel , Service support , Chest CTA 01/16/21 08:23 IMPRESSION: 1. No evidence of pulmonary embolism or aortic dissection. 2. No focal acute inflammatory process or pleural effusions. 3. Hyperinflation. 4. 8mm noncalcified left lower lobe nodule for which follow-up exam in 3 months or correlation with PET scan is recommended. Electronically Signed: Nahum Queen, at 9:10 EST Tel , Service support , Discharge Plan Triage Chief Complaint: Shortness of Breath ED Provider: Yasmani Pacheco Dx/Rx/DC Orders Prescriptions: No Action naproxen sodium [Aleve] 220 MG tablet 440 mg PO Q12H PRN PRN (Reason: Pain) RF: 0 hydrocodone-acetaminophen 1 TABLET tablet 1 tab PO Q6H PRN PRN (Reason: Pain) RF: 0 albuterol sulfate [Ventolin HFA] 1 INHALER inhaler 2 puff inhalation Q4H PRN PRN (Reason: Shortness of breath, wheezing) Qty: 3 RF: 3 levothyroxine 25 MCG tablet 25 mcg PO DAILY RF: 0 cetirizine [Zyrtec] 10 MG capsule 10 mg PO DAILY RF: 0 lisinopril 5 MG tablet 5 mg PO DAILY RF: 0 pantoprazole 40 MG tablet 40 mg PO DAILY RF: 0 fluticasone propionate 1 SPRAY spray,suspension 2 spray NASAL DAILY RF: 0 levofloxacin 500 MG tablet 500 mg PO DAILY Qty: 5 RF: 0 prednisone 20 MG tablet 40 mg PO DAILY Qty: 10 RF: 0 doxycycline hyclate 100 mg capsule 100 mg PO BID 7 Days Qty: 14 RF: 0 Primary Care Provider: Delta Mane
[2021-01-16] MEDS: Ipratropium/Albuterol Sulfate 3 ML AMPUL.NEB INHALATION ×2 (07:43→20:10)
--- NOTE | 2021-01-16 07:51 | EKG12_ITS ---
Test Reason : SOB Blood Pressure : / mmHG Vent. Rate : 072 BPM Atrial Rate : 072 BPM P-R Int : 134 ms QRS Dur : 094 ms QT Int : 414 ms P-R-T Axes : 032 055 064 degrees QTc Int : 453 ms Sinus rhythm with Premature atrial complexes Otherwise normal ECG Confirmed by ARNOL FERNANDES, LUMA ([id number]), editor publications SARA SOLARES ([id number]) on 01/19/2021 11:09:50 AM Referred By: MARY Confirmed By:LUMA AMBROSE MD
[2021-01-16 07:59] LABS: Basophil# 0.01 X10^3/uL; Basophil% 0.2 % (0-1); Hematocrit 46.1 % (37-47); Hemoglobin 14.6 g/dL (12.0-15.0); Lymphocyte % 25.9 % (19-41); Mean Corp Hgb Conc 31.7 g/dL (32-36); Mean Corpuscular Hgb 27.7 pg (27.0-32.0); Mean Corpuscular Volume 87.3 fL (81-99); Mean Platelet Vol. 10.4 fl (6.2-12.0); Monocyte# 0.46 X10^3/uL; Monocyte% 9.9 % (0-10); NRBC Flagged by Analyzer 0 % (0-5); Neutrophil # 2.95 X10^3/uL (2.7-7.7); Neutrophil % 63.8 % (47-70); POSITIVE MORPHOLOGY YES; Platelet Count 266 K/mm3 (150-450); RBC Distribution Width CV 13.7 % (11.6-14.6); RBC Distribution Width SD 43.9 fl (35.1-43.9); Red Blood Count 5.28 M/mm3 (4.2-5.4); White Blood Count 4.6 K/mm3 (4.4-11.0)
[2021-01-16 08:00] LABS: Differential Indicated SCAN CRITERIA MET
[2021-01-16 08:15] LABS: Anion Gap 8 (5-15); BUN 22 mg/dL (7-18); Calcium,Total 9.1 mg/dL (8.5-10.1); Chloride 101 mmol/L (98-107); Creatinine, Serum 0.71 mg/dL (0.55-1.02); EST Glomerular Filtration Rate 88 mL/min (>60); Est Glom Filt Rate - Afr Amer 106 mL/min (>60); Estimated Creatinine Clearance 51.81 ml/min; Glucose 97 mg/dL (74-106); Potassium 3.4 mmol/L (3.5-5.1); Sodium Level 139 mmol/L (136-145); Troponin-I HS 194 pg/mL (3.0-54.0)
[2021-01-16 08:22] LABS: D-Dimer Quantitative (DVT/PE) 0.68 FEU/ug/m (0.27-0.49)
[2021-01-16 08:23] LABS: Differential Comment SCANNED; Reactive Lymphocyte 1+
[2021-01-16] MEDS: Aspirin 81 MG TAB.CHEW 324 MG PO (08:23)
--- NOTE | 2021-01-16 08:23 | CT_ITS ---
STUDY: CTA CHEST REASON FOR EXAM: Female, 65 years old. Chest pain. RADIATION DOSAGE (If Supplied By Facility): CTDIvol = ( 11.25 ) mGy, DLP = ( 550.45 ) mGycm TECHNIQUE: The examination was performed with the intravenous administration of IV 100mL Isovue-370. Post-processing of the angiographic images was performed, with multiplanar reformation and 3D reconstruction. Individualized dose optimization techniques were used for this CT. COMPARISON: None. FINDINGS: Normal enhancement of the main pulmonary artery and right and left pulmonary arteries. Normal enhancement of the bilateral peripheral pulmonary arteries. There is no demonstrated pulmonary embolism. Normal thoracic aorta and visualized great vessels. There is no demonstrated aortic dissection. Normal heart and pericardium. Normal mediastinum. Normal hilar regions. Normal visualized trachea and bronchi. The lungs are well expanded. Hyperinflated lungs with scattered bullous changes. 8mm pleural-based left lower lobe nodule on axial image 54 series 2. No focal infiltrate is seen. There are no pleural effusions. Normal chest wall structures. Degenerative changes in the thoracic spine. No demonstrated acute process in the visualized upper abdomen. CT/CTA Chest W/WO Contrast IMPRESSION: 1. No evidence of pulmonary embolism or aortic dissection. 2. No focal acute inflammatory process or pleural effusions. 3. Hyperinflation. 4. 8mm noncalcified left lower lobe nodule for which follow-up exam in 3 months or correlation with PET scan is recommended. Electronically Signed: Nahum Queen, at 9:10 EST Tel , Service support ,
[2021-01-16 09:13] LABS: International Normalized Ratio 0.9
[2021-01-16 09:14] LABS: Partial Thromboplast Time 27.6 Seconds (24.1-36.2)
[2021-01-16 09:59] LABS: Troponin-I HS 393 pg/mL (3.0-54.0)
--- NOTE | 2021-01-16 10:08 | NURSING ---
HOSPITALIST FOR DR RIOS
--- NOTE | 2021-01-16 11:39 | PCM.HP.STD ---
Documented by User: Akash ANNA 01/16/21 15:42 HPI - General General Date of Admission: 01/16/21 Date of Service: 01/16/21 Chief Complaint: Shortness of breath w/ weakness HPI Narrative DONALDO ZHAO is a 65-year-old female who presents to the ED at [facility] on 01/16/2021 with a chief complaint of shortness of breath. Patient reports a week long history of progressively worsening shortness of breath, which she notices at rest and with exertion. Patient also reports a history of just feeling unwell with weakness, fevers, chills and N/V/D. Denies loss of taste or smell. Patient has been previously seen by her primary care provider who obtained a Covid PCR on 01/12/2021 which was negative. Of note, patient's son has also been dealing with the same sickness and has also had a negative Covid test. Patient has been fully vaccinated for COVID-19, although she has not gotten the booster. Patient has not been vaccinated against influenza. Of note primary care provider placed patient on prednisone and doxycycline, which have not improved patient symptoms. Past medical history is significant for 40+ year smoking history of smoking at least 1 pack/day. Vital signs in the ED are temperature of 98.6 ?F, HR of 73, BP of 145/68, RR of 22 with oxygen saturations of 93% on room air. CBC shows WBCs at 4.6, hemoglobin of 14.6 and platelets at 266. BMP shows sodium at 139, potassium 3.4 and elevated high-sensitivity troponins at 194 and 393 respectively. Patient's D-dimer is elevated at 0.68. Chest x-ray did not demonstrate any acute cardiopulmonary process. CTA does not demonstrate any evidence of PE or aortic dissection, no evidence of acute process, hyperinflation is seen as well as a 8 mm noncalcified left lower lobe nodule. Viral respiratory panel showed influenza A. Patient was given aspirin and breathing treatments in the ED as well as being placed on heparin in anticipation for cardiac catheterization. [facility] Medical History COPD (chronic obstructive pulmonary disease) GERD (gastroesophageal reflux disease) Hypertension Hypothyroidism Home Medications hydrocodone-acetaminophen 1 tab PO Q6H PRN PRN 07/08/15 [History Last Taken 07/01/15] naproxen sodium [Aleve] 440 mg PO Q12H PRN PRN 07/08/15 [History Last Taken 01/07/16 08:00 440 mg] albuterol sulfate [Ventolin HFA] 2 puff INHALATION Q4H PRN PRN #3 inhaler 01/21/16 [Rx Last Taken Unknown] cetirizine [Zyrtec] 10 mg PO DAILY 04/11/17 [History Last Taken Unknown] levothyroxine 25 mcg PO DAILY 04/11/17 [History Last Taken Unknown] lisinopril 5 mg PO DAILY 09/12/18 [History Last Taken Unknown] fluticasone propionate 2 spray NASAL DAILY 04/23/19 [History Last Taken Unknown] pantoprazole 40 mg PO DAILY 04/23/19 [History Last Taken Unknown] doxycycline hyclate 100 mg PO BID 01/16/21 [History Last Taken 01/15/21 22:00] levofloxacin 500 mg PO DAILY 01/16/21 [History Last Taken 01/14/21 08:00] prednisone 40 mg PO DAILY 01/16/21 [History Last Taken 01/15/21 08:00] Allergy/AdvReac Type Severity Reaction Status Date / Time cefadroxil hydrate Allergy Itching Verified 01/16/21 07:02 [From Noemi] Family History adopted adopted (Patient is adopted and is unaware of any biological paternal or maternal medical history. ) Surgical History H/O section H/O hysterectomy with oophorectomy Hx of appendectomy Social History (Updated 01/16/21 @ 13:14 by Akash ANNA) Smoking Status: Current every day smoker tobacco type: cigarettes Smoking packs per day: 1 Smoking cigarettes per day: 20.0 Years smoked: 40 Smoking pack-years: 40.00 alcohol intake: current alcohol intake frequency: holidays/special occasions only substance use type: does not use ROS Constitutional Constitutional: Reports chills, fatigue, fever(s), malaise and weakness; Denies anorexia, change in weight, night sweats or other Eyes Eyes: Denies blurry vision, change in eye color, change in vision, discharge from eye(s), double vision, erythema, eye pain, loss of vision or other ENT HEENT: Denies abnormal hearing, dysphagia, ear pain, epistaxis, headache(s), hearing loss, nasal congestion, nasal discharge, post nasal drip, sinus pressure, sore throat or other Cardiovascular Cardiovascular: Reports dyspnea on exertion and lightheadedness; Denies chest pain, claudication, edema, orthopnea, palpitations, paroxysmal nocturnal dyspnea, rapid heart rate, syncope or other Respiratory/Chest Respiratory/Chest: Reports cough, dyspnea, excessive phlegm production, hemoptysis, shortness of breath at rest and shortness of breath with exertion; Denies productive cough, wheezing or other Gastrointestinal Gastrointestinal: Reports diarrhea, nausea and vomiting; Denies abdominal pain, coffee ground emesis, constipation, dyspepsia, hematemesis, hematochezia, loose stools, melena or other Genitourinary Genitourinary: Denies burning urination, difficulty urinating, dysuria, hematuria, nocturia, urinary frequency, urinary hesitancy, urinary incontinence, urinary urgency or other Vital Signs Vital Signs Vital Signs: 01/16/21 06:59 01/16/21 07:03 01/16/21 07:47 Temperature 97.8 F Temperature Source Oral Pulse Rate 72 Respiratory Rate 20 H Respiratory Effort Short of Breath Accessory Muscle Use Respiratory Pattern Tachypnea Blood Pressure 151/96 H Blood Pressure Mean 114 Pulse Ox 93 93 Oxygen Delivery Method Room Air Room Air Room Air Oxygen Flow Rate (L/min) 01/16/21 07:48 01/16/21 07:50 01/16/21 09:00 Temperature 98.6 F Temperature Source Temporal Pulse Rate 72 73 75 Respiratory Rate 22 H 22 H 18 Respiratory Effort Respiratory Pattern Tachypnea Blood Pressure 145/68 H 148/69 H Blood Pressure Mean 93 95 Pulse Ox 93 95 Oxygen Delivery Method Nasal Cannula Nasal Cannula Oxygen Flow Rate (L/min) 2 01/16/21 10:46 Temperature 98.3 F Temperature Source Temporal Pulse Rate 78 Respiratory Rate 26 H Respiratory Effort Respiratory Pattern Blood Pressure 156/87 H Blood Pressure Mean 110 Pulse Ox 94 Oxygen Delivery Method Nasal Cannula Oxygen Flow Rate (L/min) 2 Weight Weight: 237 lb 14.06 oz Body Mass Index (BMI) 38.4 Physical Exam Const alert, oriented x3 and no apparent distress General Appearance: cooperative HEENT normocephalic, head/scalp atraumatic and hearing grossly normal bilaterally Eyes PERRL, EOMs intact bilaterally and conjunctivae normal Neck no lymphadenopathy, supple and no JVD Resp no retractions and no use of accessory muscles Effort and Inspection: tachypneic, respiratory distress and labored Auscultation: wheezes and diminished lung sounds Cardio regular rate, regular rhythm, no murmurs and no JVD GI normal to inspection, nondistended, normoactive bowel sounds, soft to palpation and non-tender Extremity normal to inspection, full ROM and no clubbing, cyanosis or edema Skin no rashes or lesions noted, no wounds, skin turgor normal and no jaundice Neuro CN's II-XII intact bilaterally Psych affect normal Results Lab / Micro Data Result Diagrams: 01/16/21 07:05 01/16/21 07:05 Labs: Laboratory Results - last 24 hr 01/16/21 07:05: WBC 4.6, RBC 5.28, Hgb 14.6, Hct 46.1, MCV 87.3, MCH 27.7, MCHC 31.7 L, RDW Std Deviation 43.9, RDW Coeff of Kanika 13.7, Plt Count 266, MPV 10.4, Immature Gran % (Auto) 0.200, Neut % (Auto) 63.8, Lymph % (Auto) 25.9, [place] % (Auto) 9.9, Eos % (Auto) 0.0, Baso % (Auto) 0.2, Absolute Neuts (auto) 3.0, Absolute Lymphs (auto) 1.20, Nucleated RBC % 0, Differential Comment SCANNED, Reactive Lymphocytes 1+ 01/16/21 07:05: Sodium 139, Potassium 3.4 L, Chloride 101, Carbon Dioxide 30.0, Anion Gap 8, BUN 22 H, Creatinine 0.71, Estim Creat Clear Calc 51.81, Est GFR (MDRD) Af Amer 106, Est GFR (MDRD) Non-Af 88, BUN/Creatinine Ratio 31.0 H, Glucose 97, Calcium 9.1, Troponin I High Sens 194 H* 01/16/21 07:45: D-Dimer Quant (PE/DVT) 0.68 H* 01/16/21 08:50: PT 12.0, INR 0.9, APTT 27.6 01/16/21 09:30: Troponin I High Sens 393 H* Micro: Microbiology 01/16/21 07:40 Mucosa - Nasopharyngeal Respiratory Panel (PCR) - Final Influenza A (Subtype H3) Radiology Impression Chest X-Ray 01/16/21 07:33 IMPRESSION: No active pulmonary disease. Electronically Signed: Nahum Queen, at 8:19 EST Tel , Service support , Chest CTA 01/16/21 08:23 IMPRESSION: 1. No evidence of pulmonary embolism or aortic dissection. 2. No focal acute inflammatory process or pleural effusions. 3. Hyperinflation. 4. 8mm noncalcified left lower lobe nodule for which follow-up exam in 3 months or correlation with PET scan is recommended. Electronically Signed: Nahum Queen, at 9:10 EST Tel , Service support , Assessment & Plan Assessment/Plan (1) Influenza A: (2) COPD (chronic obstructive pulmonary disease): (3) Elevated troponin: PLAN: Patient is a 65-year-old female who presents to the ED at [facility] on 01/16/2021 with a chief complaint of progressively worsening shortness of breath with other constitutional symptoms. Patient will be admitted for management of acute respiratory distress and for management evaluation of possible NSTEMI. 1) acute respiratory distress secondary to influenza A infection and possible COPD exacerbation Patient presents a week long history of progressively worsening shortness of breath with other constitutional symptoms. Patient has failed outpatient management of antibiotics and steroids. Imaging without any acute findings, although chest x-ray does demonstrate hyperinflation of the lungs consistent with COPD. Patient also does have a history of COPD with a 40+ year smoking history. Viral respiratory panel positive for influenza A. Plan; admit to PCU for cardiac monitoring, initiate Tamiflu, continue oxygen supplementation, initiate azithromycin, as needed albuterol ordered, duo nebs ordered, Solu-Medrol ordered, initiate heparin, CBC and CMP in a.m., PT/OT eval ordered, case management consult ordered, n.p.o. at midnight, hold home COPD regimen. 2) elevated troponins Initial high-sensitivity troponins elevated at 194 and 393 respectively. Patient is without any past cardiac medical history, although does have a 40+ year smoking history. Plan; continue to cycle troponins, cardiology consult ordered, placed on heparin in anticipation for catheterization in a.m, initiate aspirin and statin regimen. 3) hypokalemia Potassium currently 3.4, oral replacement ordered, continue to monitor BMP. 4) HTN Continue home lisinopril. 5) hypothyroidism Continue levothyroxine. 6) GERD Continue PPI. CODE STATUS: Full code DVT prophylaxis - Heparin Patient seen by Akash Casas PA-C, under the supervision of Dr. Kolb. Documented by User: Dr. Shanthi Kolb MD 01/16/21 16:35 HPI - General General Date of Admission: 01/16/21 [facility] Medical History COPD (chronic obstructive pulmonary disease) GERD (gastroesophageal reflux disease) Hypertension Hypothyroidism Home Medications hydrocodone-acetaminophen 1 tab PO Q6H PRN PRN 07/08/15 [History Last Taken 07/01/15] naproxen sodium [Aleve] 440 mg PO Q12H PRN PRN 07/08/15 [History Last Taken 01/07/16 08:00 440 mg] albuterol sulfate [Ventolin HFA] 2 puff INHALATION Q4H PRN PRN #3 inhaler 01/21/16 [Rx Last Taken Unknown] cetirizine [Zyrtec] 10 mg PO DAILY 04/11/17 [History Last Taken Unknown] levothyroxine 25 mcg PO DAILY 04/11/17 [History Last Taken Unknown] lisinopril 5 mg PO DAILY 09/12/18 [History Last Taken Unknown] fluticasone propionate 2 spray NASAL DAILY 04/23/19 [History Last Taken Unknown] pantoprazole 40 mg PO DAILY 04/23/19 [History Last Taken Unknown] doxycycline hyclate 100 mg PO BID 01/16/21 [History Last Taken 01/15/21 22:00] levofloxacin 500 mg PO DAILY 01/16/21 [History Last Taken 01/14/21 08:00] prednisone 40 mg PO DAILY 01/16/21 [History Last Taken 01/15/21 08:00] Allergy/AdvReac Type Severity Reaction Status Date / Time cefadroxil hydrate Allergy Itching Verified 01/16/21 07:02 [From Noemi] Family History adopted Surgical History H/O section H/O hysterectomy with oophorectomy Hx of appendectomy Social History (Updated 01/16/21 @ 13:14 by Akash ANNA) Smoking Status: Current every day smoker tobacco type: cigarettes Smoking packs per day: 1 Smoking cigarettes per day: 20.0 Years smoked: 40 Smoking pack-years: 40.00 alcohol intake: current alcohol intake frequency: holidays/special occasions only substance use type: does not use Results Lab / Micro Data Result Diagrams: 01/16/21 07:05 01/16/21 07:05 Charges/Coding Addendum Addendum: This patient was seen in conjunction with SHOSHANA Bhagat. I have independently interviewed and examined the patient and reviewed pertinent historical, laboratory, and other data. Please refer to SHOSHANA Bhagat's note for his patient's presentation, findings, and recommendations. I have reviewed and his note and concur with his documentation 65-year-old female past medical history of COPD, not on oxygen who comes in with progressive shortness of breath and cough as well as fevers and chills ongoing for about 1 week. Patient has been vaccinated for COVID-19 pneumonia. She also complains of some chest pressure. Denied any leg swelling. No history of heart disease. Vitals has been stable. Patient is currently on 2 L of oxygen. Admitting blood work is significant for potassium 3.4. D-dimer was 0.68. Chest x-ray shows no active pulmonary disease. CTA of the chest was negative for acute PE Physical Exam: Gen: Looks in some discomfort, on 2 L of oxygen not pale, not jaundiced CVS:HS I +II, regular, no murmurs RESP: Diminished at lung bases, scattered wheezes GI: BS present and normal, soft, nontender, no palpable organs EXT:No edema ASSESSMENT: 1. Acute COPD exacerbation secondary to acute influenza A bronchitis 2. Elevated troponins likely secondary to demand ischemia 3. Rheumatoid arthritis 4. Hypertension 5. Hypothyroidism 6. Obesity 7. Hypokalemia Plan: Continue on heparin drip started from the ED Cardiology consult Trend troponin IV steroids, breathing treatment Tamiflu Encourage use of incentive spirometer Replace potassium Visit Charges Inpatient E&M: 08092 Init Hosp L3 Procedures Hospitalists Procedures: 61569 Advncd Care Plan 30 Min
[2021-01-16 11:47] LABS: Hemoglobin A1c 5.5 % (3.8-5.6)
--- NOTE | 2021-01-16 15:20 | CON.PCM.CA_ITS ---
Assessment & Plan Assessment/Plan (1) Influenza A: (2) Rheumatoid arthritis: (3) Anal squamous cell carcinoma: (4) Hypertension: (5) Hypothyroidism: (6) Elevated troponin: PLAN: This patient presented to the ER, with chest pain Tested negative for Covid?19. Her long history of rheumatoid arthritis, hypertension, COPD Cardiac consultation requested due to elevated high sensitive troponin I, up to 393 Cardiac care plan recommendations; 1. We will continue current treatment 2. Echocardiogram in a.m. 3. Left heart catheterization in a.m. HPI Consult Data Date of Consult: 01/16/21 HPI Narrative Reason for Consultation: Chest pain with non-STEMI HPI Narrative: DONALDO ZHAO, is a 65 F who presents [facility] Medical History (Updated 01/16/21 @ 13:17 by Akash ANNA) COPD (chronic obstructive pulmonary disease) GERD (gastroesophageal reflux disease) Hypertension Hypothyroidism Home Medications hydrocodone-acetaminophen 1 tab PO Q6H PRN PRN 07/08/15 [History Last Taken 07/01/15] naproxen sodium [Aleve] 440 mg PO Q12H PRN PRN 07/08/15 [History Last Taken 01/07/16 08:00 440 mg] albuterol sulfate [Ventolin HFA] 2 puff INHALATION Q4H PRN PRN #3 inhaler 01/21/16 [Rx Last Taken Unknown] cetirizine [Zyrtec] 10 mg PO DAILY 04/11/17 [History Last Taken Unknown] levothyroxine 25 mcg PO DAILY 04/11/17 [History Last Taken Unknown] lisinopril 5 mg PO DAILY 09/12/18 [History Last Taken Unknown] fluticasone propionate 2 spray NASAL DAILY 04/23/19 [History Last Taken Unknown] pantoprazole 40 mg PO DAILY 04/23/19 [History Last Taken Unknown] levofloxacin 500 mg PO DAILY #5 tab 04/24/19 [Rx Last Taken Unknown] prednisone 40 mg PO DAILY #10 tab 04/24/19 [Rx Last Taken Unknown] doxycycline hyclate 100 mg PO BID 7 Days #14 cap 06/26/20 [Rx Last Taken Unknown] Allergy/AdvReac Type Severity Reaction Status Date / Time cefadroxil hydrate Allergy Itching Verified 01/16/21 07:02 [From Noemi] Family History adopted Surgical History (Updated 01/16/21 @ 13:13 by Akash ANNA) H/O section H/O hysterectomy with oophorectomy Hx of appendectomy Social History (Updated 01/16/21 @ 13:14 by Akash ANNA) Smoking Status: Current every day smoker tobacco type: cigarettes Smoking packs per day: 1 Smoking cigarettes per day: 20.0 Years smoked: 40 Smoking pack-years: 40.00 alcohol intake: current alcohol intake frequency: holidays/special occasions only substance use type: does not use Physical Exam Narrative Patient seen and evaluated in the ED Alert oriented x3 Not in acute distress. Cardiac examination; S1-S2 normal, no murmur no systolic or diastolic murmur, no gallop no pericardial rub Chest examination; clear to auscultation bilateral Risk Stratification Risk Stratification Applicable: Yes Age >/= 65: Yes >/= 3 CAD Risk Factors (HTN, HLD, DM, family hx of CAD, or current smoker): No Aspirin Use in the Past 7 Days: No Severe Angina (>/= episodes in 24 hours): No EKG ST Changes >/= 0.5mm: No Positive Cardiac Marker: Yes JAMES Risk Stratification Score: 2 JAMES % Risk: 8% Risk Objective Data Vital Signs: Vital Signs Temp Pulse Resp BP Pulse Ox 98.3 F 79 25 H 144/86 H 94 01/16/21 10:46 01/16/21 14:00 01/16/21 14:00 01/16/21 14:00 01/16/21 14:00 Oxygen Flow Rate (L/min) 2 Oxygen Delivery Method Nasal Cannula Weight: 237 lb 14.06 oz Body Mass Index (BMI) 38.4 Lab / Micro Data Result Diagrams: 01/16/21 07:05 01/16/21 07:05 Labs: Laboratory Results - last 24 hr 01/16/21 07:05: WBC 4.6, RBC 5.28, Hgb 14.6, Hct 46.1, MCV 87.3, MCH 27.7, MCHC 31.7 L, RDW Std Deviation 43.9, RDW Coeff of Kanika 13.7, Plt Count 266, MPV 10.4, Immature Gran % (Auto) 0.200, Neut % (Auto) 63.8, Lymph % (Auto) 25.9, [place] % (Auto) 9.9, Eos % (Auto) 0.0, Baso % (Auto) 0.2, Absolute Neuts (auto) 3.0, Absolute Lymphs (auto) 1.20, Nucleated RBC % 0, Differential Comment SCANNED, Reactive Lymphocytes 1+ 01/16/21 07:05: Sodium 139, Potassium 3.4 L, Chloride 101, Carbon Dioxide 30.0, Anion Gap 8, BUN 22 H, Creatinine 0.71, Estim Creat Clear Calc 51.81, Est GFR (MDRD) Af Amer 106, Est GFR (MDRD) Non-Af 88, BUN/Creatinine Ratio 31.0 H, Glucose 97, Calcium 9.1, Troponin I High Sens 194 H* 01/16/21 07:45: D-Dimer Quant (PE/DVT) 0.68 H* 01/16/21 08:50: PT 12.0, INR 0.9, APTT 27.6 01/16/21 09:30: Troponin I High Sens 393 H* 01/16/21 10:10: Hemoglobin A1c 5.5 Micro: Microbiology 01/16/21 07:40 Mucosa - Nasopharyngeal Respiratory Panel (PCR) - Final Influenza A (Subtype H3) Cardiology Labs/Tests 01/16/21 07:05: WBC 4.6, RBC 5.28, Hgb 14.6, Hct 46.1, MCV 87.3, MCH 27.7, MCHC 31.7 L, Plt Count 266, MPV 10.4, Immature Gran % (Auto) 0.200, Neut % (Auto) 63.8, Lymph % (Auto) 25.9, [place] % (Auto) 9.9, Eos % (Auto) 0.0, Baso % (Auto) 0.2, Absolute Neuts (auto) 3.0, Nucleated RBC % 0 01/16/21 07:05: Sodium 139, Potassium 3.4 L, Chloride 101, Carbon Dioxide 30.0, Anion Gap 8, BUN 22 H, Creatinine 0.71, Est GFR (MDRD) Af Amer 106, Est GFR (MDRD) Non-Af 88, BUN/Creatinine Ratio 31.0 H, Glucose 97, Calcium 9.1 01/16/21 07:45: D-Dimer Quant (PE/DVT) 0.68 H* 01/16/21 08:50: PT 12.0, INR 0.9, APTT 27.6 01/16/21 10:10: Hemoglobin A1c 5.5 EKG: Normal sinus rhythm Radiography Diagnostic Testing: Radiology Impression Chest X-Ray 01/16/21 07:33 IMPRESSION: No active pulmonary disease. Electronically Signed: Nahum Bret, at 8:19 EST Tel , Service support , Chest CTA 01/16/21 08:23 IMPRESSION: 1. No evidence of pulmonary embolism or aortic dissection. 2. No focal acute inflammatory process or pleural effusions. 3. Hyperinflation. 4. 8mm noncalcified left lower lobe nodule for which follow-up exam in 3 months or correlation with PET scan is recommended. Electronically Signed: Nahum Bret, at 9:10 EST Tel , Service support ,
[2021-01-16 16:30] LABS: Troponin-I HS 390 pg/mL (3.0-54.0)
[2021-01-16] MEDS: Potassium Chloride Oral Tablet 20 MEQ 60 MEQ PO (18:19)
[2021-01-16] MEDS: Oseltamivir Phosphate 75 MG Capsule PO ×2 (18:19→23:29)
[2021-01-16 19:32] LABS: Partial Thromboplast Time 61.5 Seconds (24.1-36.2)
[2021-01-16] MEDS: Atorvastatin Calcium 80 MG Tablet PO (23:29)
[2021-01-17] VITALS (23 sets, daily range): BP systolic 122–146; BP diastolic 65–93; PULSE 57–88; RESP 16–22; TEMP 36.3–36.9; O2SAT 86–99
[2021-01-17 01:55] LABS: Partial Thromboplast Time 74.9 Seconds (24.1-36.2)
[2021-01-17 05:47] LABS: Absolute Lymphocyte Count 0.77 X10^3/uL (0.83-4.51); Absolute Neutrophil Count 2.5 X10^3/uL (2.0-7.7); Basophil# 0.01 X10^3/uL; Basophil% 0.3 % (0-1); Hematocrit 43.4 % (37-47); Hemoglobin 13.8 g/dL (12.0-15.0); Lymphocyte # 0.77 X10^3/ul (0.83-4.51); Lymphocyte % 21.9 % (19-41); Mean Corp Hgb Conc 31.8 g/dL (32-36); Mean Corpuscular Hgb 28.2 pg (27.0-32.0); Mean Corpuscular Volume 88.8 fL (81-99); Mean Platelet Vol. 10.3 fl (6.2-12.0); Monocyte# 0.26 X10^3/uL; Monocyte% 7.4 % (0-10); NRBC Flagged by Analyzer 0 % (0-5); Neutrophil # 2.46 X10^3/uL (2.7-7.7); Neutrophil % 70.1 % (47-70); POSITIVE MORPHOLOGY YES; Platelet Count 223 K/mm3 (150-450); RBC Distribution Width CV 13.8 % (11.6-14.6); RBC Distribution Width SD 44.9 fl (35.1-43.9); Red Blood Count 4.89 M/mm3 (4.2-5.4); White Blood Count 3.5 K/mm3 (4.4-11.0)
[2021-01-17] MEDS: Aspirin 81 MG TAB.CHEW PO (05:47)
--- NOTE | 2021-01-17 05:55 | EKG12_ITS ---
Test Reason : AM EKG Blood Pressure : / mmHG Vent. Rate : 062 BPM Atrial Rate : 062 BPM P-R Int : 130 ms QRS Dur : 090 ms QT Int : 456 ms P-R-T Axes : 065 062 081 degrees QTc Int : 462 ms Sinus rhythm with Premature atrial complexes Otherwise normal ECG When compared with ECG of 16-JAN-2021 15:37, MANUAL COMPARISON REQUIRED, DATA IS UNCONFIRMED Confirmed by BARBIE FERNANDES, PATRICIA ([id number]), index editor SARA SOLARES ([id number]) on 01/18/2021 7:37:33 AM Referred By: DR MORENO Confirmed By:PATRICIA VALENTIN MD
[2021-01-17] MEDS: Ipratropium/Albuterol Sulfate 3 ML AMPUL.NEB INHALATION ×4 (05:59→19:42)
[2021-01-17 06:37] LABS: ALB/GLOB Ratio 0.7 RATIO (0.9-2.4); AST(SGOT) 26 U/L (15-37); Alanine Aminotransfer ALT/SGPT 26 U/L (13-56); Albumin, Serum 2.9 g/dL (3.2-5.0); Alkaline Phosphatase 95 U/L (45-117); Anion Gap 6 (5-15); BUN 20 mg/dL (7-18); BUN/Creat Ratio 32.9 RATIO (10-20); Calcium,Total 8.4 mg/dL (8.5-10.1); Chloride 103 mmol/L (98-107); Cholesterol 142 mg/dL (200); Creatinine, Serum 0.61 mg/dL (0.55-1.02); EST Glomerular Filtration Rate 104 mL/min (>60); Est Glom Filt Rate - Afr Amer 126 mL/min (>60); Estimated Creatinine Clearance 51.81 ml/min; Globulin 4.3 g/dL (2.2-4.2); Glucose 113 mg/dL (74-106); High Density Lipoprotein 59 mg/dL; Potassium 4.5 mmol/L (3.5-5.1); Protein, Total 7.2 g/dL (6.4-8.2); Sodium Level 135 mmol/L (136-145); Triglycerides 119 mg/dL; Very Low Density Lipoprotein 24 mg/dL (5-40)
--- NOTE | 2021-01-17 07:11 | PCS.PANDOC ---
PANDEMIC DOCUMENTATION INITIATED: Date: 01/17/2021 Time: 699
[2021-01-17 07:14] LABS: Partial Thromboplast Time 60.7 Seconds (24.1-36.2)
[2021-01-17 07:18] LABS: Differential Indicated SCAN CRITERIA MET
[2021-01-17 07:35] LABS: Atypical Lymphocyte RARE %
--- NOTE | 2021-01-17 09:27 | PN.CARD_ITS ---
Subjective Subjective Patient was seen and evaluated. Underwent cardiac catheterization today Objective Data Vital Signs: Vital Signs Temp Pulse Resp BP Pulse Ox 98.4 F 60 22 H 146/93 H 97 01/17/21 06:00 01/17/21 07:00 01/17/21 06:00 01/17/21 06:00 01/17/21 06:01 Oxygen Flow Rate (L/min) 3 Oxygen Delivery Method Nasal Cannula Weight: 237 lb 14.06 oz Body Mass Index (BMI) 38.4 Intake & Output: Intake and Output for Last 24 Hours 01/15/21 01/16/21 01/17/21 23:59 23:59 23:59 Intake Total 1183 / 1183 176.25 / 176.25 Balance 1183 / 1183 176.25 / 176.25 Lab / Micro Data Result Diagrams: 01/17/21 05:00 01/17/21 05:00 Labs: Laboratory Results - last 24 hr 01/16/21 09:30: Troponin I High Sens 393 H* 01/16/21 10:10: Hemoglobin A1c 5.5 01/16/21 16:01: Troponin I High Sens 390 H* 01/16/21 19:04: APTT 61.5 H 01/17/21 01:27: APTT 74.9 H 01/17/21 05:00: WBC 3.5 L, RBC 4.89, Hgb 13.8, Hct 43.4, MCV 88.8, MCH 28.2, MCHC 31.8 L, RDW Std Deviation 44.9 H, RDW Coeff of Kanika 13.8, Plt Count 223, MPV 10.3, Immature Gran % (Auto) 0.300, Neut % (Auto) 70.1 H, Lymph % (Auto) 21.9, [place] % (Auto) 7.4, Eos % (Auto) 0.0, Baso % (Auto) 0.3, Absolute Neuts (auto) 2.5, Absolute Lymphs (auto) 0.77 L, Nucleated RBC % 0, Atypical Lymphocytes RARE 01/17/21 05:00: Sodium 135 L, Potassium 4.5, Chloride 103, Carbon Dioxide 26.0, Anion Gap 6, BUN 20 H, Creatinine 0.61, Estim Creat Clear Calc 51.81, Est GFR (MDRD) Af Amer 126, Est GFR (MDRD) Non-Af 104, BUN/Creatinine Ratio 32.9 H, Glucose 113 H, Calcium 8.4 L, Total Bilirubin 0.20, AST 26, ALT 26, Alkaline Phosphatase 95, Total Protein 7.2, Albumin 2.9 L, Globulin 4.3 H, Albumin/Globulin Ratio 0.7 L, Triglycerides 119, Cholesterol 142, LDL Cholesterol 59, VLDL Cholesterol 24, HDL Cholesterol 59 01/17/21 07:00: APTT 60.7 H Micro: Microbiology 01/16/21 07:40 Mucosa - Nasopharyngeal Respiratory Panel (PCR) - Final Influenza A (Subtype H3) Cardiology Labs/Tests 01/16/21 10:10: Hemoglobin A1c 5.5 01/16/21 19:04: APTT 61.5 H 01/17/21 01:27: APTT 74.9 H 01/17/21 05:00: WBC 3.5 L, RBC 4.89, Hgb 13.8, Hct 43.4, MCV 88.8, MCH 28.2, MCHC 31.8 L, Plt Count 223, MPV 10.3, Immature Gran % (Auto) 0.300, Neut % (Auto) 70.1 H, Lymph % (Auto) 21.9, [place] % (Auto) 7.4, Eos % (Auto) 0.0, Baso % (Auto) 0.3, Absolute Neuts (auto) 2.5, Nucleated RBC % 0 01/17/21 05:00: Sodium 135 L, Potassium 4.5, Chloride 103, Carbon Dioxide 26.0, Anion Gap 6, BUN 20 H, Creatinine 0.61, Est GFR (MDRD) Af Amer 126, Est GFR (MDRD) Non-Af 104, BUN/Creatinine Ratio 32.9 H, Glucose 113 H, Calcium 8.4 L, Total Bilirubin 0.20, Triglycerides 119, Cholesterol 142, LDL Cholesterol 59, VLDL Cholesterol 24, HDL Cholesterol 59 01/17/21 07:00: APTT 60.7 H Rhythm: EKG: ECHO: Stress Test: Cardiac Cath: PCI: CT Surgery: Holter monitor: EPS: PPM: CXR: Chest CT Scan: Physical Exam Const alert, oriented x3 and no apparent distress General Appearance: cooperative HEENT hearing grossly normal bilaterally Head and Scalp: atraumatic Eyes EOMs intact bilaterally Neck General: normal visual inspection Chest inspection of chest normal and palpation of chest normal Resp normal respiratory effort Auscultation: clear to auscultation bilaterally Cardio regular rate, regular rhythm, S1 normal heart sound and S2 normal heart sound Jugular Venous Distention: JVD GI normal to inspection, nondistended, normoactive bowel sounds Extremity normal capillary refill and no pedal edema Peripheral Pulses: Yes pulses 2+ throughout and femoral pulses present Skin no rashes or lesions noted Neuro oriented x3 and CN's II-XII intact bilaterally Psych Appearance: grossly normal and appropriate Assessment & Plan Assessment/Plan (1) Elevated troponin: PLAN: Patient presented with elevated troponin. Underwent cardiac catheterization which demonstrated mild disease in the LAD, circumflex artery, and right coronary artery. The ejection fraction was preserved with a focal hypokinetic area in the mid inferior wall. * Recommendation would be to continue aggressive medical therapy * Continue aspirin * Continue high intensity statin * Would recommend lisinopril 5 mg a day * Will hold off on beta-tracey for now due to heart rate * Patient can be discharged for outpatient follow-up (2) Hypertension: PLAN: Blood pressure appears to be under fair control Continue medications as noted
--- NOTE | 2021-01-17 09:37 | CL.D_ITS ---
Patient Name: DONALDO ZHAO Study Date: 01/17/2021 Performing: David Fall MD Ht: 66 inches 168 cm : 1955 Wt: 238.4 lbs 108 kg Age: 65 Gender: female BSA: 2.16 PROCEDURE(S) PERFORMED DL25-RLB/COR/LV 24533 CLINICAL PROFILE AND INDICATIONS Indications: Suspected CAD Heart Failure: None Stress/Imaging Stress/Image Study Performed: No CONCLUSIONS Mild coronary artery disease with no high-grade stenosis noted. Mild inferior hypokinesis present. RECOMMENDATIONS Medical therapy DESCRIPTION OF PROCEDURE The patient arrived to the procedure lab. The risks and benefits of the procedure as well as a full d escription of our services here and current unavailability of surgical backup were fully explained to the patient and/or their significant other prior to the catheterization. The Timeout was completed, verifying the correct patient and procedure. The patient's procedural site was prepped and draped in the usual fashion. Local anesthetic was given subcutaneously to right radial region with Lidocaine 2% . Using a modified Seldinger technique, arterial access was obtained via the right radial artery, a 6 Fr sheath was inserted. Left Coronary Artery selective angiography was performed in multiple views u sing a 5 Fr. 4.0 [place] catheter. Right Coronary Artery selective angiography was then performed in mu ltiple views using a 5 Fr. 4.0 [place] catheter. Left Ventriculography was performed in FREGOSO projection using a 5 Fr. [place] catheter. LV to AO pullback pressures were then recorded.The arterial sheath was pulled and a TR Band was applied for hemostasisw/ 12ml CORONARY ANGIOGRAPHY DOMINANCE: Right Dominant LEFT HEART ASSESSMENT Left Ventricular Ejection Fraction: by LV Gram 50 % Inferior Mid Hypokinesis - Moderate Normal Left Ventricular systolic function LEFT MAIN: Angiographically normal LEFT ANTERIOR DESCENDING ARTERY: MID LAD: 40 % Stenosis CIRCUMFLEX ARTERY: MID CIRC: 40 % Stenosis RIGHT CORONARY ARTERY: PROX RCA: 30 % Stenosis COMPLICATIONS No Complications PROCEDURE MEDICATIONS Versed 1 mg IV Fentanyl 50 mcg IV Versed 1 mg IV Oxygen: 3 L/min via nasal cannula Heparin given IA 01/17/2021 09:14:29 Verapamil 2.5mg, Ntg 100mcgs, 3000 units of Heparin given IA 01/17/2021 09:14:29 SUMMARY OF HEMODYNAMIC DATA Time AIR REST ECG 09:00:53 AO 111/65 (84) SA 09:16:08 LV 101/5, 12 09:22:44 LV 128/8, 16 09:22:50 LV 119/9, 17 09:23:28 LV 118/8, 17 09:23:35 LVp 115/9, 16 09:23:39 AOp 116/61 (84) 09:23:44 Signed By David Fall MD On 01/17/2021 09:36:24 David Fall MD
[2021-01-17] MEDS: 0.9% Normal Saline 1,000 ML 60 ML IV (09:58)
--- NOTE | 2021-01-17 10:45 | CASEMGMT ---
KEERTHI CASTANEDA assessment: Face to face with pt for initial transition planning/care coordination assessment. KEERTHI CASTANEDA introduced self and role at [facility], pt voices understanding and consents to assessment. Pt is on 3L in no distress and speaks in full sentences. Pt is A/Ox4 and answers all questions appropriately. Care providers, pharmacy, and demographics verified. Presentation: Pt c/o SOB since Sunday with neg COVID test, hx COPD Admitting dx: SOB, Flu A PCP: [facility] Specialists: Pt states no current specialists. Preferred Pharmacy: [facility] Insurance: MCR A/B, [employer] Prescription Benefit: MCR D/[employer] Living Will/HPOA: Pt states does not have LW/HPOA and declines AD info. LNOK: Panfilo Sam, son Living Arrangements: Pt's son lives with her in 1 story home with 5 steps in and states no concerns at home. Pt is independent with ADL's. Transportation: Pt states drives self and states no transportation concerns. DME/HHC: Pt has the following DME: grab bars and 2 nebulizers. Pt states no preference for DME company, if qualifies for home oxygen. Pt states no hx of HHC or SNF. Pt states no concerns with going home at time of discharge. Pt is retired. Pt states smokes pack cigarettes daily but does not drink ETOH. Pt voices no further concerns/needs. CM to follow for home oxygen testing and any further discharge planning/needs. Advised pt to ask for CM if any further questions/concerns/needs arise, voices understanding. Pt Goal: Home Plan: Home, pending home oxygen testing. S[place]en KEERTHI CASTANEDA
--- NOTE | 2021-01-17 11:28 | PN.HOSP_ITS ---
Documented by User: Akash ANNA 01/17/21 11:43 Subjective Subjective Patient is a 65-year-old female comfortably resting in bed, alert and orient x3. Patient reports that shortness of breath and overall feeling ill has greatly improved from yesterday. Denies development of any new symptoms overnight. Does not appear in acute distress. Objective Data Objective Data Vital Signs: Vital Signs Temp Pulse Resp BP Pulse Ox 97.7 F L 62 16 132/66 H 98 01/17/21 11:20 01/17/21 11:20 01/17/21 11:20 01/17/21 11:20 01/17/21 11:20 Oxygen Flow Rate (L/min) 3 Oxygen Delivery Method Nasal Cannula Weight: 237 lb 14.06 oz Body Mass Index (BMI) 38.4 Intake & Output: Intake and Output for Last 24 Hours 01/15/21 01/16/21 01/17/21 23:59 23:59 23:59 Intake Total 1183 / 1183 176.25 / 176.25 Balance 1183 / 1183 176.25 / 176.25 Lab / Micro Data Result Diagrams: 01/17/21 05:00 01/17/21 05:00 Labs: Laboratory Results - last 24 hr 01/16/21 10:10: Hemoglobin A1c 5.5 01/16/21 16:01: Troponin I High Sens 390 H* 01/16/21 19:04: APTT 61.5 H 01/17/21 01:27: APTT 74.9 H 01/17/21 05:00: WBC 3.5 L, RBC 4.89, Hgb 13.8, Hct 43.4, MCV 88.8, MCH 28.2, MCHC 31.8 L, RDW Std Deviation 44.9 H, RDW Coeff of Kanika 13.8, Plt Count 223, MPV 10.3, Immature Gran % (Auto) 0.300, Neut % (Auto) 70.1 H, Lymph % (Auto) 21.9, [place] % (Auto) 7.4, Eos % (Auto) 0.0, Baso % (Auto) 0.3, Absolute Neuts (auto) 2.5, Absolute Lymphs (auto) 0.77 L, Nucleated RBC % 0, Atypical Lymphocytes RARE 01/17/21 05:00: Sodium 135 L, Potassium 4.5, Chloride 103, Carbon Dioxide 26.0, Anion Gap 6, BUN 20 H, Creatinine 0.61, Estim Creat Clear Calc 51.81, Est GFR (MDRD) Af Amer 126, Est GFR (MDRD) Non-Af 104, BUN/Creatinine Ratio 32.9 H, Glucose 113 H, Calcium 8.4 L, Total Bilirubin 0.20, AST 26, ALT 26, Alkaline Phosphatase 95, Total Protein 7.2, Albumin 2.9 L, Globulin 4.3 H, Albumin/Globulin Ratio 0.7 L, Triglycerides 119, Cholesterol 142, LDL Cholestero l 59, VLDL Cholesterol 24, HDL Cholesterol 59 01/17/21 07:00: APTT 60.7 H Micro: Microbiology 01/16/21 07:40 Mucosa - Nasopharyngeal Respiratory Panel (PCR) - Final Influenza A (Subtype H3) Physical Exam Const alert, oriented x3 and no apparent distress HEENT head/scalp atraumatic and moist oral mucous membranes Head and Scalp: normocephalic Eyes PERRL, EOMs intact bilaterally and conjunctivae normal Neck no lymphadenopathy, supple and no JVD Resp normal respiratory effort, no retractions, no use of accessory muscles and clear to auscultation bilaterally Cardio regular rate, regular rhythm, no murmurs and no JVD GI normal to inspection, nondistended, normoactive bowel sounds, soft to palpation and non-tender Extremity normal to inspection, full ROM and no clubbing, cyanosis or edema Peripheral Pulses: Yes pulses 2+ throughout Skin no rashes or lesions noted, no wounds, skin turgor normal and no jaundice Neuro CN's II-XII intact bilaterally Psych affect normal Assessment & Plan Assessment/Plan (1) Influenza A: (2) Elevated troponin: PLAN: Day 1 Discharge planning: Current plan is for patient to discharge home. 1) acute respiratory distress secondary to influenza A infection and possible COPD exacerbation Patient reports that her respiratory status and overall feeling ill has greatly improved from yesterday, currently satting 98% on 3 L via nasal cannula. CBC does not demonstrate a leukocytosis. Viral respiratory panel did come back positive for influenza A subtype H3. Patient past medical history significant for COPD with a 40+ year smoking history. Plan; continue oxygen supplementation wean as tolerated, continue Tamiflu, continue azithromycin, continue Solu- Medrol, continue scheduled duo nebs and as needed albuterol. 2) elevated troponins Patient underwent cardiac catheterization on 01/17/2021 which demonstrated mild disease in the LAD, circumflex artery and right coronary artery. Ejection fraction was preserved. Recommendations per cardiology are as follows, continue aspirin, continue high intensity statin, initiate lisinopril 5 mg daily, hold on beta-tracey, stable to discharge from cardiac standpoint. 3) abnormal imaging CT-A of the chest demonstrated 8 mm noncalcified left lower lobe nodule which should be followed up with in 3 months. Patient does have a [id number] smoking history. Plan is for patient to follow-up with pulmonology as an outpatient for appropriate work-up. 4) hypokalemia Potassium currently 3.4, oral replacement ordered, continue to monitor BMP. 5) HTN Continue home lisinopril. 6) hypothyroidism Continue levothyroxine. 7) GERD Continue PPI. DVT prophylaxis - Heparin Patient seen by Akash Casas PA-C, under the supervision of Dr. Mann. Documented by User: Dr. Sayra Mann MD 01/17/21 15:13 Objective Data Lab / Micro Data Result Diagrams: 01/17/21 05:00 01/17/21 05:00 Charges/Coding Addendum Addendum: Patient seen by Akash Casas PA-C under my supervision Patient seen and examined. She had no active complaints. Her shortness of breath was improving. She had cardiac cath today which showed normal coronaries. She has remained hemodynamically stable. Review systems otherwise negative. O/E: Const alert, oriented x3 and no apparent distress HEENT head/scalp atraumatic and moist oral mucous membranes Head and Scalp: normocephalic Eyes PERRL, EOMs intact bilaterally and conjunctivae normal Neck no lymphadenopathy, supple and no JVD Resp normal respiratory effort, no retractions, no use of accessory muscles and clear to auscultation bilaterally Cardio regular rate, regular rhythm, no murmurs and no JVD GI normal to inspection, nondistended, normoactive bowel sounds, soft to palpation and non-tender Extremity normal to inspection, full ROM and no clubbing, cyanosis or edema Peripheral Pulses: Yes pulses 2+ throughout Skin no rashes or lesions noted, no wounds, skin turgor normal and no jaundice Neuro CN's II-XII intact bilaterally Psych affect normal Plan is to continue on Tamiflu and wean down oxygen as tolerated to maintain saturation above 90%. Cardiac cath showed mild disease in the LAD and circumflex artery and right coronary artery with preserved EF and focal hypokinetic area in the mid inferior wall. Plan is for aggressive medical therapy and she is on aspirin and high intensity statin. To hold off on beta- tracey for now due to heart rate and to start on lisinopril 5 mg daily I recommended by cardiology. Continue Tamiflu. Of note, CT of the chest showed an 8 mm noncalcified left lower lobe nodule. In light of her extensive smoking history, it is advisable that this should be followed up on outpatient basis with pulmonology. Also on azithromycin and IV Solu-Medrol. We will continue. Replace potassium which is 3.4 today. Rest as per Akash Casas PA-C's note, which I have reviewed and endorsed. Visit Charges Inpatient E&M: 82436 Subs Hosp L2
[2021-01-17] MEDS: 0.9% Saline Lock 10 ML Syringe IV ×2 (13:58→23:02)
[2021-01-17] MEDS: Oseltamivir Phosphate 75 MG Capsule PO (23:00)
[2021-01-17] MEDS: Atorvastatin Calcium 80 MG Tablet PO (23:00)
[2021-01-18] VITALS (9 sets, daily range): BP systolic 145–158; BP diastolic 81–85; PULSE 62–88; RESP 16–20; TEMP 36.6–36.9; O2SAT 88–97
[2021-01-18] MEDS: 0.9% Normal Saline 1,000 ML 60 ML IV (06:39)
[2021-01-18] MEDS: Ipratropium/Albuterol Sulfate 3 ML AMPUL.NEB INHALATION ×2 (07:13→15:03)
[2021-01-18] MEDS: Aspirin 81 MG TAB.CHEW PO (08:33)
[2021-01-18] MEDS: Oseltamivir Phosphate 75 MG Capsule PO (08:33)
--- NOTE | 2021-01-18 09:56 | CASEMGMT ---
Pt qualifies for 2L w/ exertion and states no preference for home oxygen company. Referral faxed to [facility]. Pt is also agreeable to script for OP therapy as she states she is not home bound. Therapy is set to see pt today and this RN CM to follow for any further discharge planning/needs/recommendations. SStaten RN CM
--- NOTE | 2021-01-18 10:42 | PCM.DC ---
Discharge Instructions Diet Discharge Diet: No restrictions Activity Discharge Activity: Return to Normal Activity Weight Bearing Status: Weight bearing as tolerated Dressing / Incision Call your doctor if you observe: Fever of 101 or Higher, Numbness or Tingling, Shortness of breath, Dizziness, Chest pain, Increased palpitations (irregular heartbeat) and Calf discomfort Follow Up Care Please Follow Up With: Primary care provider When: Within the next two weeks. Test Results: Test results from this visit will be discussed in further detail at your follow-up appointment, if applicable. Discharge Plan Admission Admit Date/Time: 01/16/21 10:07 Primary Reason for Your Visit: Shortness of breath Attending Provider: Sayra Mann Primary Care Provider: Delta Mane Consulting Providers: Deidre Jerome Discharge Orders/Prescriptions Prescriptions: New oseltamivir [Tamiflu] 75 mg capsule 75 mg PO BID 4 Days Qty: 8 RF: 0 prednisone 20 mg tablet 40 mg PO DAILY Qty: 10 RF: 0 Continued naproxen sodium [Aleve] 220 MG tablet 440 mg PO Q12H PRN PRN (Reason: Pain) RF: 0 hydrocodone-acetaminophen 1 TABLET tablet 1 tab PO Q6H PRN PRN (Reason: Pain) RF: 0 albuterol sulfate [Ventolin HFA] 1 INHALER inhaler 2 puff inhalation Q4H PRN PRN (Reason: Shortness of breath, wheezing) Qty: 3 RF: 3 levothyroxine 25 MCG tablet 25 mcg PO DAILY RF: 0 Zyrtec 10 MG capsule 10 mg PO DAILY RF: 0 lisinopril 5 MG tablet 10 mg PO DAILY RF: 0 pantoprazole 40 MG tablet 40 mg PO DAILY RF: 0 fluticasone propionate 1 SPRAY spray,suspension 2 spray NASAL DAILY RF: 0 sertraline 100 mg tablet 200 mg PO DAILY RF: 0 Discontinued doxycycline hyclate 100 mg capsule 100 mg PO BID RF: 0 prednisone 20 MG tablet 40 mg PO DAILY RF: 0 levofloxacin 500 MG tablet 500 mg PO DAILY RF: 0 Referrals / Follow Up: Delta Mane MD [Primary Care Provider] - Within 2 Weeks Romain Maza MD [STAFF PHYSICIAN] - Within 2 Weeks (Establish care for follow up of non calcified 8mm left lower lobe nodule in 3 months. ) Disposition Disposition (needs filled in before D/C Order can be placed): Home, Self Care
[2021-01-18] MEDS: Sertraline 100 MG Tablet 200 MG PO (11:56)
--- NOTE | 2021-01-18 12:40 | CASEMGMT ---
Addendum entered by Larissa Soto 01/18/21 15:06: Call to Charlee at [facility] to notify to cancel home oxygen as pt is now going to SNF, voices understanding. Domenica PENDLETON CM Addendum entered by Larissa Soto 01/18/21 14:09: Margarita NORWOOD updated on all and per therapy, pt would benefit from SNF rehab. Domenica PENDLETON CM Original Note: Per Camille PENDLETON, pt would like to speak with this RN CM again regarding d/c plan. Pt now states increased concerns with going home at time of discharge. Pt states she doesn't really have anyone to help her at home as her son is sick and she states that they have also been in disagreement about several things at home. Pt is still awaiting therapy eval and therapy aware to provide recommendations to CM upon completion. Pt provided list of local SNF's, pending therapy eval. CM to follow. Domenica PENDLETON CM
--- NOTE | 2021-01-18 13:25 | PCM.DC.SUM ---
Documented by User: Akash ANNA 01/18/21 14:00 Providers Date of Admission: 01/16/21 Primary Care Physician: Dr. Delta Mane MD Consultations 01/16/21 15:47 Consult: Cardiology Routine Consulting Provider: Deidre Jerome Reason for Consult: Elevated troponins. EMERGENT Consult: No MD Notified: Yes Date Notified: 01/16/21 Time Notified: 13:24 Method of Notification: Verbal Reason For Visit: SOB Diagnosis Discharge Diagnosis (1) Influenza A: Status: Acute Code(s): J10.1 - Influenza due to other identified influenza virus with other respiratory manifestations (2) Elevated troponin: Status: Acute Code(s): R77.8 - Other specified abnormalities of plasma proteins Medications at Discharge Home Medications hydrocodone-acetaminophen 1 tab PO Q6H PRN PRN 07/08/15 naproxen sodium [Aleve] 440 mg PO Q12H PRN PRN 07/08/15 albuterol sulfate [Ventolin HFA] 2 puff INHALATION Q4H PRN PRN #3 inhaler 01/21/16 Zyrtec 10 mg PO DAILY 04/11/17 levothyroxine 25 mcg PO DAILY 04/11/17 fluticasone propionate 2 spray NASAL DAILY 04/23/19 pantoprazole 40 mg PO DAILY 04/23/19 lisinopril 10 mg PO DAILY #0 tab 01/18/21 oseltamivir [Tamiflu] 75 mg PO BID 4 Days #8 cap 01/18/21 prednisone 40 mg PO DAILY #10 tab 01/18/21 sertraline 200 mg PO DAILY 01/18/21 Hospital Course Summary of Care Provided Minutes Spent on Discharge: 35 Hospital Course: Disposition: Patient to discharge home. 1) acute respiratory distress secondary to influenza A infection and COPD exacerbation Patient reports that her respiratory status and overall feeling ill was greatly improved over the course of admission, currently satting 96% on 2 L via nasal cannula. Patient did qualify for home oxygen usage as her pulse ox dropped to 88% while ambulating on room air. CBC does not demonstrate a leukocytosis. Viral respiratory panel did come back positive for influenza A subtype H3. Patient past medical history significant for COPD with a 40+ year smoking history. Patient to be discharged with home oxygen prescription on 2 L, continue Tamiflu on discharge, prednisone burst initiated on discharge, continue home COPD regimen. Follow-up with your primary care provider within the next 2 weeks. 2) elevated troponins Patient underwent cardiac catheterization on 01/17/2021 which demonstrated mild disease in the LAD, circumflex artery and right coronary artery. Ejection fraction was preserved. Recommendations per cardiology are as follows, continue aspirin, continue high intensity statin, initiate lisinopril 5 mg daily, continue beta-tracey on discharge. 3) abnormal imaging CT-A of the chest demonstrated 8 mm noncalcified left lower lobe nodule which should be followed up with in 3 months. Patient does have a [id number] smoking history. Patient referral to Dr. Maza placed on discharge instructions so that she can establish care with appropriate follow-up of nodule. 4) hypokalemia Replace. 5) HTN Continue home regimen, lisinopril change as noted above. 6) hypothyroidism Continue levothyroxine. 7) GERD Continue PPI. Patient seen by Akash Casas PA-C, under the supervision of Dr. Mann. Physical Exam Narrative Patient is a 65-year-old female comfortably resting in a chair, alert and orient x3. Patient reports that her shortness of breath and overall ill feeling has significantly improved from admission. Denies development of any new symptoms overnight. Does not appear in acute distress. Const alert, oriented x3 and no apparent distress HEENT normocephalic, head/scalp atraumatic, hearing grossly normal bilaterally and moist oral mucous membranes Eyes PERRL and EOMs intact bilaterally Neck no lymphadenopathy, supple and no JVD Resp normal respiratory effort, no retractions, no use of accessory muscles and clear to auscultation bilaterally Resp Narrative: Currently satting 93% on 2 L via nasal cannula. Cardio regular rate, regular rhythm, no murmurs and no JVD GI normal to inspection, nondistended, normoactive bowel sounds, soft to palpation and non-tender Extremity normal to inspection, full ROM and no clubbing, cyanosis or edema Skin no rashes or lesions noted, no wounds and skin turgor normal Neuro CN's II-XII intact bilaterally Psych affect normal Weight / BMI Weight Weight: 237 lb 14.06 oz Body Mass Index (BMI) 38.4 ABG / Lab / Microbiology Data Result Diagrams: 01/17/21 05:00 01/17/21 05:00 Microbiology: Microbiology 01/16/21 07:40 Mucosa - Nasopharyngeal Respiratory Panel (PCR) - Final Influenza A (Subtype H3) D/C Instructions Discharge Diet: No restrictions Weight Bearing Status: Weight bearing as tolerated Call your doctor if you observe: Fever of 101 or Higher, Numbness or Tingling, Shortness of breath, Dizziness, Chest pain, Increased palpitations (irregular heartbeat) and Calf discomfort Please Follow Up With: Primary care provider When: Within the next two weeks. Meaningful Use Info Meaningful Use Diagnoses (Choose all that apply): None applicable Discharge Plan Admission Admit Date/Time: 01/16/21 10:07 Primary Reason for Your Visit: Shortness of breath Attending Provider: Sayra Mann Primary Care Provider: Delta Mane Consulting Providers: Deidre Jerome Instructions Additional Instructions / Restrictions: Patient Problems: Altered Health Status related to Hospitalization Patient Goals: *Optimal Level of Health *Keep Appointments *Medication Compliance *Remain Safe Discharge Orders/Prescriptions Prescriptions: New oseltamivir [Tamiflu] 75 mg capsule 75 mg PO BID 4 Days Qty: 8 RF: 0 prednisone 20 mg tablet 40 mg PO DAILY Qty: 10 RF: 0 Continued naproxen sodium [Aleve] 220 MG tablet 440 mg PO Q12H PRN PRN (Reason: Pain) RF: 0 hydrocodone-acetaminophen 1 TABLET tablet 1 tab PO Q6H PRN PRN (Reason: Pain) RF: 0 albuterol sulfate [Ventolin HFA] 1 INHALER inhaler 2 puff inhalation Q4H PRN PRN (Reason: Shortness of breath, wheezing) Qty: 3 RF: 3 levothyroxine 25 MCG tablet 25 mcg PO DAILY RF: 0 Zyrtec 10 MG capsule 10 mg PO DAILY RF: 0 pantoprazole 40 MG tablet 40 mg PO DAILY RF: 0 fluticasone propionate 1 SPRAY spray,suspension 2 spray NASAL DAILY RF: 0 sertraline 100 mg tablet 200 mg PO DAILY RF: 0 lisinopril 5 MG tablet 10 mg PO DAILY Qty: 0 RF: 0 Discontinued doxycycline hyclate 100 mg capsule 100 mg PO BID RF: 0 prednisone 20 MG tablet 40 mg PO DAILY RF: 0 levofloxacin 500 MG tablet 500 mg PO DAILY RF: 0 Referrals / Follow Up: Delta Mane MD [Primary Care Provider] - 01/19/21 1:30 pm Romain Maza MD [STAFF PHYSICIAN] - Within 2 Weeks (Establish care for follow up of non calcified 8mm left lower lobe nodule in 3 months. ) Disposition Disposition (needs filled in before D/C Order can be placed): Home, Self Care Documented by User: Dr. Sayra Mann MD 01/18/21 16:28 Providers Date of Admission: 01/16/21 Reason For Visit: SOB Medications at Discharge Home Medications hydrocodone-acetaminophen 1 tab PO Q6H PRN PRN 07/08/15 naproxen sodium [Aleve] 440 mg PO Q12H PRN PRN 07/08/15 albuterol sulfate [Ventolin HFA] 2 puff INHALATION Q4H PRN PRN #3 inhaler 01/21/16 Zyrtec 10 mg PO DAILY 04/11/17 levothyroxine 25 mcg PO DAILY 04/11/17 fluticasone propionate 2 spray NASAL DAILY 04/23/19 pantoprazole 40 mg PO DAILY 04/23/19 lisinopril 10 mg PO DAILY #0 tab 01/18/21 oseltamivir [Tamiflu] 75 mg PO BID 4 Days #8 cap 01/18/21 prednisone 40 mg PO DAILY #10 tab 01/18/21 sertraline 200 mg PO DAILY 01/18/21 ABG / Lab / Microbiology Data Result Diagrams: 01/17/21 05:00 01/17/21 05:00 Discharge Plan Admission Admit Date/Time: 01/16/21 10:07 Primary Reason for Your Visit: Shortness of breath Attending Provider: Sayra Mann Primary Care Provider: Delta Mane Consulting Providers: Deidre Jerome Instructions Additional Instructions / Restrictions: Patient Problems: Altered Health Status related to Hospitalization Patient Goals: *Optimal Level of Health *Keep Appointments *Medication Compliance *Remain Safe Discharge Orders/Prescriptions Prescriptions: New oseltamivir [Tamiflu] 75 mg capsule 75 mg PO BID 4 Days Qty: 8 RF: 0 prednisone 20 mg tablet 40 mg PO DAILY Qty: 10 RF: 0 Continued naproxen sodium [Aleve] 220 MG tablet 440 mg PO Q12H PRN PRN (Reason: Pain) RF: 0 hydrocodone-acetaminophen 1 TABLET tablet 1 tab PO Q6H PRN PRN (Reason: Pain) RF: 0 albuterol sulfate [Ventolin HFA] 1 INHALER inhaler 2 puff inhalation Q4H PRN PRN (Reason: Shortness of breath, wheezing) Qty: 3 RF: 3 levothyroxine 25 MCG tablet 25 mcg PO DAILY RF: 0 Zyrtec 10 MG capsule 10 mg PO DAILY RF: 0 pantoprazole 40 MG tablet 40 mg PO DAILY RF: 0 fluticasone propionate 1 SPRAY spray,suspension 2 spray NASAL DAILY RF: 0 sertraline 100 mg tablet 200 mg PO DAILY RF: 0 lisinopril 5 MG tablet 10 mg PO DAILY Qty: 0 RF: 0 Discontinued doxycycline hyclate 100 mg capsule 100 mg PO BID RF: 0 prednisone 20 MG tablet 40 mg PO DAILY RF: 0 levofloxacin 500 MG tablet 500 mg PO DAILY RF: 0 Referrals / Follow Up: Delta Mane MD [Primary Care Provider] - 01/19/21 1:30 pm Romain Maza MD [STAFF PHYSICIAN] - Within 2 Weeks (Establish care for follow up of non calcified 8mm left lower lobe nodule in 3 months. ) Disposition Disposition (needs filled in before D/C Order can be placed): Home, Self Care Charges/Coding Addendum Addendum: Patient seen by Akash Casas PA-C under my supervision Patient is a 65 y/o female with a PMH as outlined who was admited with a complaint of shortness of breath. she had associated weakness, fever, chills, nausea and vomiting. Review of systems was otherwise negative. She had been fully vaccinated for Covid and her Covid test done was negative. On admission, her high-sensitivity troponin was elevated and trended upwards. Chest x-ray showed no acute cardiopulmonary process and CTA was negative for PE. Viral panel was positive for influenza. She was started on aspirin and admitted to be managed for influenza infection as well as non-STEMI. She was started on heparin drip and cardiology was consulted. She had cardiac cath which showed mild coronary artery disease with no high-grade stenosis noted and mild inferior hypokinesis. Plan was for medical management. Patient remained stable and was discharged home on 01/18/2021. She was discharged on p.o. Tamiflu and qualified for 2 L of oxygen so she was discharged on that as well as course of prednisone. She is follow-up with her primary care doctor and follow-up with cardiology. Patient seen and examined prior to discharge. She had no complaints and felt much better. Review of systems otherwise negative. Labs and vitals reviewed. Home medication reviewed and reconciled. O/E: Const alert, oriented x3 and no apparent distress HEENT head/scalp atraumatic and moist oral mucous membranes Head and Scalp: normocephalic Eyes PERRL, EOMs intact bilaterally and conjunctivae normal Neck no lymphadenopathy, supple and no JVD Resp diminished breath sounds bibasally, no wheezes, no crackles. On 2L of oxygen. Cardio regular rate, regular rhythm, no murmurs and no JVD GI normal to inspection, nondistended, normoactive bowel sounds, soft to palpation and non-tender Extremity normal to inspection, full ROM and no clubbing, cyanosis or edema Peripheral Pulses: Yes pulses 2+ throughout Skin no rashes or lesions noted, no wounds, skin turgor normal and no jaundice Neuro CN's II-XII intact bilaterally Psych affect normal Rest as per Akash Casas PA-C's note which I reviewed and endorsed. Visit Charges Inpatient E&M: [id number] Disch Hosp
--- NOTE | 2021-01-18 13:57 | TREXTCAR_ITS ---
Documented by User: Akash ANNA 01/18/21 13:58 Diet 01/17/21 10:40 Diet: Cardiac - Heart Healthy Food consistency:: Regular Liquid Consistency:: Regular/Thin Dietary Modifications:: No Added Salt Is pt able to select menu?: Yes Wound(s) Right wrist: Wound Type: Puncture Therapies Physical Therapy: Eval and Treat Occupational Therapy: Eval and Treat Problem/Diagnosis (1) Influenza A: Status: Acute (2) Elevated troponin: Status: Acute Allergies/Procedures Done in Hospital Allergies cefadroxil hydrate [From Duricef] Allergy (Verified 01/16/21 07:02) Itching Type of Care/Length of Stay Estimated LOS: Convalescent Care Less Than 30 days Type of Care Needed: Skilled Rehab Potential: Good Prognosis: Good Additional Orders/Day of Discharge Day of Discharge: 01/18/21 Dietary and Speech Recommendations Dietitian Recommendations/Changes: Continue Cardiac-Heart Healthy diet. Added No added salt. Follow Up Care Please Follow Up With: Primary care provider Discharge Plan Admission Admit Date/Time: 01/16/21 10:07 Primary Reason for Your Visit: Shortness of breath Attending Provider: Sayra Mann Primary Care Provider: Delta Mane Consulting Providers: Deidre Jerome Discharge Orders/Prescriptions Prescriptions: New oseltamivir [Tamiflu] 75 mg capsule 75 mg PO BID 4 Days Qty: 8 RF: 0 prednisone 20 mg tablet 40 mg PO DAILY Qty: 10 RF: 0 Continued naproxen sodium [Aleve] 220 MG tablet 440 mg PO Q12H PRN PRN (Reason: Pain) RF: 0 hydrocodone-acetaminophen 1 TABLET tablet 1 tab PO Q6H PRN PRN (Reason: Pain) RF: 0 albuterol sulfate [Ventolin HFA] 1 INHALER inhaler 2 puff inhalation Q4H PRN PRN (Reason: Shortness of breath, wheezing) Qty: 3 RF: 3 levothyroxine 25 MCG tablet 25 mcg PO DAILY RF: 0 Zyrtec 10 MG capsule 10 mg PO DAILY RF: 0 pantoprazole 40 MG tablet 40 mg PO DAILY RF: 0 fluticasone propionate 1 SPRAY spray,suspension 2 spray NASAL DAILY RF: 0 sertraline 100 mg tablet 200 mg PO DAILY RF: 0 lisinopril 5 MG tablet 10 mg PO DAILY Qty: 0 RF: 0 Discontinued doxycycline hyclate 100 mg capsule 100 mg PO BID RF: 0 prednisone 20 MG tablet 40 mg PO DAILY RF: 0 levofloxacin 500 MG tablet 500 mg PO DAILY RF: 0 Referrals / Follow Up: Delta Mane MD [Primary Care Provider] - 01/19/21 1:30 pm Romain Maza MD [STAFF PHYSICIAN] - Within 2 Weeks (Establish care for follow up of non calcified 8mm left lower lobe nodule in 3 months. ) Disposition Disposition (needs filled in before D/C Order can be placed): Home, Self Care Documented by User: Dr. Sayra Mann MD 01/18/21 14:22 Allergies/Procedures Done in Hospital Allergies [place]rate [place] [facility] [place]ergy (Verified 01/16/21 07:02) Itching Discharge Plan Admission Admit Date/Time: 01/16/21 10:07 Primary Reason for Your Visit: Shortness of breath Attending Provider: Sayra Mann Primary Care Provider: Delta Mane Consulting Providers: eDidre Jerome Discharge Orders/Prescriptions Prescriptions: New oseltamivir [Tamiflu] 75 mg capsule 75 mg PO BID 4 Days Qty: 8 RF: 0 prednisone 20 mg tablet 40 mg PO DAILY Qty: 10 RF: 0 Continued naproxen sodium [Aleve] 220 MG tablet 440 mg PO Q12H PRN PRN (Reason: Pain) RF: 0 hydrocodone-acetaminophen 1 TABLET tablet 1 tab PO Q6H PRN PRN (Reason: Pain) RF: 0 albuterol sulfate [Ventolin HFA] 1 INHALER inhaler 2 puff inhalation Q4H PRN PRN (Reason: Shortness of breath, wheezing) Qty: 3 RF: 3 levothyroxine 25 MCG tablet 25 mcg PO DAILY RF: 0 Zyrtec 10 MG capsule 10 mg PO DAILY RF: 0 pantoprazole 40 MG tablet 40 mg PO DAILY RF: 0 fluticasone propionate 1 SPRAY spray,suspension 2 spray NASAL DAILY RF: 0 sertraline 100 mg tablet 200 mg PO DAILY RF: 0 lisinopril 5 MG tablet 10 mg PO DAILY Qty: 0 RF: 0 Discontinued doxycycline hyclate 100 mg capsule 100 mg PO BID RF: 0 prednisone 20 MG tablet 40 mg PO DAILY RF: 0 levofloxacin 500 MG tablet 500 mg PO DAILY RF: 0 Referrals / Follow Up: Delta Mane MD [Primary Care Provider] - 01/19/21 1:30 pm Romain Maza MD [STAFF PHYSICIAN] - Within 2 Weeks (Establish care for follow up of non calcified 8mm left lower lobe nodule in 3 months. ) Disposition Disposition (needs filled in before D/C Order can be placed): Home, Self Care
--- NOTE | 2021-01-18 14:17 | CASEMGMT ---
Per therapist patient would benefit from rehab and patient is interested in TCU. [facility] called [facility] and they would have a bed for patient. [facility] met with patient. Introduced self and role at [facility]. Patient would like to go to [facility] TCU. [facility] explained Medicare coverage to her. [facility] told her she will be able to wear clothes while in TCU. She thanked [facility] for the assistance. [facility] notified physician, Physician Formula Bottler, and RN. Plan: d/c to [facility] TCU under skilled level of care. Mojgan UNDERWOOD
--- NOTE | 2021-01-18 16:04 | NURSING ---
Report called to [facility], on TCU at 1600.
== END 2021-01-18 16:26 | disposition skilled nursing facility (03) | DRG 193 ==
LOC: ED 07:55 → PCU 13:50
PROVIDERS: Admitting Provider Internal Medicine; Emergency Provider Student in an Organized Health Care Education/Training Program; PCP Family Medicine; Visit Provider Student in an Organized Health Care Education/Training Program
DX: J10.1 Influenza due to other identified influenza virus with other respiratory manifestations (principal); I21.4 Non-ST elevation (NSTEMI) myocardial infarction; J44.1 Chronic obstructive pulmonary disease with (acute) exacerbation; E87.6 Hypokalemia; I10 Essential (primary) hypertension; K21.9 Gastro-esophageal reflux disease without esophagitis; E03.9 Hypothyroidism, unspecified; R91.1 Solitary pulmonary nodule; F17.210 Nicotine dependence, cigarettes, uncomplicated; R06.03 Acute respiratory distress; M06.9 Rheumatoid arthritis, unspecified; E66.9 Obesity, unspecified; Z79.899 Other long term (current) drug therapy; Z79.51 Long term (current) use of inhaled steroids; Z79.890 Hormone replacement therapy; Z68.38 Body mass index [BMI] 38.0-38.9, adult; I25.10 Atherosclerotic heart disease of native coronary artery without angina pectoris
CPT/HCPCS: 36415; 71045; 71275; 80048; 80053; 80061; 83036; 84484; 85025; 85379; 85610; 85730; 87426; 87633; 93005; 93458; 94640; 97162; 97166; 97802; 99152; 99153; 99285; 99406; J7030; J7040; Q9967; A4216; C1769; C1894

== ENCOUNTER 2021-01-18 16:45 | Inpatient (IN) | payer MEDICARE, BC, SELFPAY ==
[2021-01-18 17:03] VITALS: BP 176/91; PULSE 70; RESP 24; TEMP 36.6; O2SAT 96; BMI 36.6
--- NOTE | 2021-01-18 19:45 | HP.PCM_ITS ---
HPI - General General Date of Admission: 01/18/21 HPI Narrative 01/16/2021 DONALDO ZHAO, is a 65 Female who presents to [facility] Emergency Department with shortness of breath. 01/16/2021 EKG normal sinus rhythm, normal EKG. Non-specific changes in ST segment in anterior leads. T wave inversion no longer evident in lateral leads. Chills, body aches, feverish. 01/13/2021 covid negative. on Doxycycline, prednisone, home nebulizers from Telehealth visit. Chest pain with shortness of breath. Solu-medrol 125mg IV given by EMS. Chest X-ray negative. Troponin 194, Delta troponin 393. CTA chest negative pulmonary embolism, but showed 8mm pulmonary nodule. Heparin drip started, Respiratory panel positive influenza A. 01/16/2021 Admit to Hospital. Tamiflu, Oxygen, Azithromycin, Albuterol, Duoneb, Solu-medrol for influenza A, COPD exacerbation. Start aspirin, statin for NSTEMI. 01/17/2021 Cardiac cath showed mild coronary artery disease without high grade stenosis. Mild inferior hypokinesis present. 01/17/2021 Shortness of breath improved, feeling ill improved. Start Lisinopril 5mg daily for coronary artery disease. 8mm pulmonary nodule, outpatient follow up recommended. 01/18/2021 Discharge on oxygen 2 liters per nasal cannula, Tamiflu, prednisone burst. PT/OT [facility]. 01/18/2021 Admit to TCU with debility, here for rehabilitation, strengthening, prior to discharge home alone. [facility] Medical History COPD (chronic obstructive pulmonary disease) Essential hypertension GERD (gastroesophageal reflux disease) Hypertension Hypothyroidism Nonobstructive atherosclerosis of coronary artery Home Medications hydrocodone-acetaminophen 1 tab PO Q6H PRN PRN 07/08/15 [History Last Taken 07/01/15] naproxen sodium [Aleve] 440 mg PO Q12H PRN PRN 07/08/15 [History Last Taken 01/15/21 21:00] albuterol sulfate [Ventolin HFA] 2 puff INHALATION Q4H PRN PRN #3 inhaler 01/21/16 [Rx Last Taken Unknown] Zyrtec 10 mg PO DAILY 04/11/17 [History Last Taken 01/15/21 08:00] levothyroxine 25 mcg PO DAILY 04/11/17 [History Last Taken 01/15/21 08:00] fluticasone propionate 2 spray NASAL DAILY 04/23/19 [History Last Taken 01/13/21 08:00] pantoprazole 40 mg PO DAILY 04/23/19 [History Last Taken 01/15/21 08:00] lisinopril 10 mg PO DAILY #0 tab 01/18/21 [Rx Last Taken 01/15/21 08:00] oseltamivir [Tamiflu] 75 mg PO BID 01/18/21 [History Last Taken Unknown] prednisone 40 mg PO DAILY 01/18/21 [History Last Taken Unknown] sertraline 200 mg PO DAILY 01/18/21 [History Last Taken 01/15/21 08:00] Allergy/AdvReac Type Severity Reaction Status Date / Time cefadroxil hydrate Allergy Itching Verified 01/16/21 07:02 [From [facility] [place]] Surgical History H/O section H/O hysterectomy with oophorectomy History of left heart catheterization (01/17/21) Hx of appendectomy Social History (Updated 01/18/21 @ 19:[address] John Hollis MD) household members: none Smoking Status: Current every day smoker tobacco type: cigarettes alcohol intake: current alcohol intake frequency: holidays/special occasions only substance use type: does not use ROS Constitutional Constitutional: Denies chills, fever(s) or weight gain ENT HEENT: Denies headache(s), nasal congestion or nasal discharge Cardiovascular Cardiovascular: Denies chest pain or palpitations Respiratory/Chest Respiratory/Chest: Denies cough, excessive phlegm production or shortness of breath with exertion Gastrointestinal Gastrointestinal: Denies abdominal pain, nausea or vomiting Genitourinary Genitourinary: Denies dysuria Musculoskeletal Musculoskeletal: Denies joint pain or joint swelling Integumentary Integumentary: Denies rash or wounds Neurologic Neurologic: Denies focal weakness, numbness or tingling Psychiatric Psychiatric: Denies anxiety, auditory hallucinations, depression, homicidal ideation or suicidal ideation Vital Signs Vital Signs Vital Signs: 01/18/21 17:03 Temperature 97.8 F Temperature Source Temporal Pulse Rate 70 Respiratory Rate 24 H Blood Pressure 176/91 H Blood Pressure Mean 119 Blood Pressure Source Monitor Blood Pressure Position Sitting Blood Pressure Location Left Arm Pulse Ox 96 Oxygen Delivery Method Nasal Cannula Oxygen Flow Rate (L/min) 3 Weight Weight: 102.965 kg Body Mass Index (BMI) 36.6 Physical Exam Const alert and oriented x3 General Appearance: cooperative HEENT normocephalic Eyes PERRL and EOMs intact bilaterally Neck supple, no JVD and no carotid bruits Resp normal respiratory effort, normal air movement and clear to auscultation bilaterally Cardio regular rate and regular rhythm GI normal to inspection, nondistended, normoactive bowel sounds, non-tender and non-distended Extremity normal capillary refill General Extremity: Negative for edema Skin no rashes or lesions noted General Skin Exam: no breakdown Psych affect normal Appearance: appropriate Assessment & Plan Assessment/Plan (1) Debility: (2) Acute respiratory failure with hypoxia: (3) Influenza A: (4) COPD exacerbation: (5) NSTEMI (non-ST elevated myocardial infarction): (6) Lung nodule: (7) Tobacco abuse: (8) Gastroesophageal reflux disease: (9) Hypertension: (10) Hypothyroidism: (11) Allergic rhinitis: PLAN: 65 year old female with below past medical history hospitalized for acute respiratory failure with hypoxia secondary to influenza A, COPD exacerbation, complicated by NSTEMI, admitted to TCU with debility, here for rehabilitation, strengthening, prior to discharge home alone. * Debility - PT/OT. * Pain - Naproxen 500mg Q12H prn pain (1-5), [place] 5/325mg 1 tab Q6h prn pain (6-10). * Bowel - Senna/colace 1 tablet bid, Dulcolax 10mg daily prn. * Adult immunization - Adminsiter prevnar 13, pneumovax 23, fluzone, covid19 vaccine as appropriate. * DVT prophylaxis - Lovenox 40mg sc daily. * COPD - Albuterol 2 puffs Q4H prn, Prednisone taper. * Allergic rhinitis - Flonase 2 spray nasal daily, Loratadine 10mg daily. * Hypothyroidism - Levothyroxine 25mcg daily. * Coronary artery disease - Lisinopril 10mg daily. * Influenza A - Tamiflu 75mg bid thru 01/22/2021. * GERD - Pantoprazole 40mg daily. * Depression - Sertraline 200mg daily, stable chronic oysterman use, GDR not recommended. * Pulmonary nodule - 8mm, outpatient follow up with pulmonary. * Tobacco Abuse - Recommend cessation, I let resident know if she continues to smoke, she will soon. Her son Panfilo was present.
[2021-01-18 22:00] VITALS: PULSE 89; RESP 18; O2SAT 92
[2021-01-18] MEDS: HYDROcodone Bitartrate/Apap 5/325 Tablet PO (22:27)
[2021-01-18] MEDS: Oseltamivir Phosphate 30 MG Capsule PO (22:28)
[2021-01-18] MEDS: Oseltamivir Phosphate 45 MG Capsule PO (22:28)
[2021-01-19 04:58] LABS: Absolute Lymphocyte Count 1.68 X10^3/uL (0.83-4.51); Absolute Neutrophil Count 5.1 X10^3/uL (2.0-7.7); Basophil# 0.01 X10^3/uL; Basophil% 0.1 % (0-1); Hemoglobin 13.2 g/dL (12.0-15.0); Lymphocyte # 1.68 X10^3/ul (0.83-4.51); Lymphocyte % 22.6 % (19-41); Mean Corp Hgb Conc 32.2 g/dL (32-36); Mean Corpuscular Hgb 28.3 pg (27.0-32.0); Mean Platelet Vol. 10.5 fl (6.2-12.0); Monocyte# 0.58 X10^3/uL; Monocyte% 7.8 % (0-10); NRBC Flagged by Analyzer 0 % (0-5); Neutrophil # 5.06 X10^3/uL (2.7-7.7); Neutrophil % 68.2 % (47-70); Platelet Count 245 K/mm3 (150-450); RBC Distribution Width CV 13.7 % (11.6-14.6); RBC Distribution Width SD 44.6 fl (35.1-43.9); Red Blood Count 4.66 M/mm3 (4.2-5.4); White Blood Count 7.4 K/mm3 (4.4-11.0)
[2021-01-19 05:20] LABS: Anion Gap 7 (5-15); BUN 21 mg/dL (7-18); BUN/Creat Ratio 29.4 RATIO (10-20); Calcium,Total 8.1 mg/dL (8.5-10.1); Chloride 103 mmol/L (98-107); Creatinine, Serum 0.71 mg/dL (0.55-1.02); EST Glomerular Filtration Rate 87 mL/min (>60); Est Glom Filt Rate - Afr Amer 105 mL/min (>60); Estimated Creatinine Clearance 51.81 ml/min; Glucose 88 mg/dL (74-106); Potassium 3.8 mmol/L (3.5-5.1); Sodium Level 139 mmol/L (136-145)
[2021-01-19] MEDS: Lisinopril 10 MG Tablet PO (06:24)
[2021-01-19] MEDS: Sertraline 100 MG Tablet 200 MG PO (06:24)
[2021-01-19] MEDS: Oseltamivir Phosphate 30 MG Capsule PO ×2 (06:25→17:06)
[2021-01-19] MEDS: Pantoprazole Sodium 40 MG Tablet PO (06:25)
[2021-01-19] MEDS: Enoxaparin 40 MG/0.4 ML Syringe SC (06:25)
[2021-01-19] MEDS: Senna/Docusate Sodium 1 Tablet PO (06:25)
[2021-01-19] MEDS: Oseltamivir Phosphate 45 MG Capsule PO ×2 (06:25→17:06)
[2021-01-19] MEDS: Levothyroxine 25 MCG TABLET PO (06:25)
[2021-01-19] MEDS: Loratadine 10 MG Tablet PO (06:26)
[2021-01-19] MEDS: Fluticasone 0.05% 1 SPRAY NASAL.SRY 2 SPRAY NASAL (06:26)
[2021-01-19] MEDS: Albuterol Sulfate 8 gm Inhaler (60 puffs) 2 PUFF INHALATION (07:00)
[2021-01-19] MEDS: predniSONE 20 MG Tablet 40 MG PO (08:50)
--- NOTE | 2021-01-19 10:41 | NURSING ---
pt just had shower and began getting SOB, pt assisted to bed, HOB elevated oxygen on 2 liters NC. updated RESP therapy for duoneb PRN order.
[2021-01-19 10:48] VITALS: PULSE 81; RESP 18
[2021-01-19] MEDS: Ipratropium/Albuterol Sulfate 3 ML AMPUL.NEB INHALATION ×2 (11:15→20:00)
[2021-01-19 11:20] VITALS: PULSE 83; RESP 18; O2SAT 95
[2021-01-19] MEDS: Tuberculin,Purif.prot.deriv. 50 TU/ML Vial 0.1 ML ID (12:09)
--- NOTE | 2021-01-19 12:14 | CASEMGMT ---
Social Work SW met w/pt, code status reviewed, pt confirms is a full code. MOLST form reviewed w/pt, communication to physician, form placed in chart. Pt's goal from TCU will be to return home. Pt may be open to counseling, and is open to a referral to [facility] for a terminal clerk care assessment. SW reviewed w/pt how Medicare covers TCU, explained length of stay in TCU is normally 30 days or less. SW explained she will have a plan of care meeting while here, likely next week, to see how she is doing and looking forward to when pt will be ready for discharge. Pt would like to return home at discharge, and is hopeful to be home by [place]. Pt lives home w/son but he is not able to help pt a lot as he has rheumatoid and a bad back. Pt is not open to home health as she is not home bound. She is aware may need home O2 at discharge, SW explained this will be ordered for her if needed. Pt also may be interested in completing LW/POA forms while here. SW made referral to [facility] for senior care care assessment. Plan: Home at discharge, possible home O2, open to list of counseling resources, may want to complete LW/POA while here. KAY Carbone
[2021-01-19 14:49] VITALS: BP 131/70; PULSE 97; RESP 16; TEMP 36.3; O2SAT 92
--- NOTE | 2021-01-19 15:08 | PHA.CONS_ITS ---
Progress Note - Pharmacy Subjective: TCU Admission Objective: Allergies cefadroxil hydrate [From [facility] [place]] Allergy (Verified 01/16/21 07:02) Itching Current Medications Generic Name Dose Route Start Last Admin Trade Name Freq PRN Reason Stop Dose Admin Hydrocodone Bitart/Acetaminophen 1 tablet 01/18/21 20:04 01/18/21 22:27 Hydrocodone Bitartrate/Apap 5/325 Tablet PO 1 tablet Q6H PRN PRN Administration Pain Score 6-10 Albuterol Sulfate 2 puff 01/18/21 17:31 01/19/21 07:00 Albuterol Sulfate 8 Gm Inhaler (60 Puffs) INHALATION 2 puff Q4H PRN PRN Administration Shortness of breath, wheezing Albuterol/Ipratropium 3 ml 01/19/21 08:22 01/19/21 11:15 Ipratropium/Albuterol Sulfate 3 Ml Ampul.Neb INHALATION 3 ml Q6HWA.RT PRN Administration SHORTNESS OF BREATH Bisacodyl 10 mg 01/18/21 20:03 Bisacodyl 5 Mg Tablet PO DAILY PRN PRN Constipation Enoxaparin Sodium 40 mg 01/19/21 06:00 01/19/21 06:25 Enoxaparin 40 Mg/0.4 Ml Syringe SC 40 mg DAILY@0600 DAVONTE Administration Fluticasone Propionate 2 spray 01/19/21 06:00 01/19/21 06:26 Fluticasone 0.05% 1 [place] Nasal.Sry NASAL 2 spray DAILY DAVONTE Administration Levothyroxine Sodium 25 mcg 01/19/21 06:00 01/19/21 06:25 Levothyroxine 25 Mcg Tablet PO 25 mcg DAILY DAVONTE Administration Lisinopril 10 mg 01/19/21 06:00 01/19/21 06:24 Lisinopril 10 Mg Tablet PO 10 mg DAILY DAVONTE Administration Loratadine 10 mg 01/19/21 06:00 01/19/21 06:26 Loratadine 10 Mg Tablet PO 10 mg DAILY DAVONTE Administration Naproxen 500 mg 01/18/21 20:04 Naproxen 500 Mg Tablet PO Q12H PRN PRN Pain Score 1-5 Oseltamivir Phosphate 45 mg 01/18/21 22:00 01/19/21 06:25 Oseltamivir Phosphate 45 Mg Capsule PO 01/23/21 06:01 45 mg BID DAVONTE Administration Oseltamivir Phosphate 30 mg 01/18/21 22:00 01/19/21 06:25 Oseltamivir Phosphate 30 Mg Capsule PO 01/23/21 06:01 30 mg BID DAVONTE Administration Pantoprazole Sodium 40 mg 01/19/21 06:00 01/19/21 06:25 Pantoprazole Sodium 40 Mg Tablet PO 40 mg DAILY DAVONTE Administration Prednisone 40 mg 01/19/21 08:00 01/19/21 08:50 Prednisone 20 Mg Tablet PO 01/28/21 08:01 40 mg BREAKFAST DAVONTE Administration Senna/Docusate Sodium 1 tablet 01/19/21 06:00 01/19/21 06:25 Senna/Docusate Sodium 1 Tablet PO 1 tablet BID DAVONTE Administration Sertraline HCl 200 mg 01/19/21 06:00 01/19/21 06:24 Sertraline 100 Mg Tablet PO 200 mg DAILY DAVONTE Administration Tuberculin PPD 0.1 ml 01/26/21 10:00 Tuberculin,Purif.Prot.Deriv. 50 Tu/Ml Vial ID 01/26/21 10:01 X1 ONE Problem List (Last Reviewed 01/18/21 @ 19:[address] John Hollis MD) Allergic rhinitis (Acute) Hypothyroidism (Acute) Hypertension (Chronic) Gastroesophageal reflux disease (Acute) Tobacco abuse (Acute) Lung nodule (Acute) NSTEMI (non-ST elevated myocardial infarction) (Acute) COPD exacerbation (Chronic) Influenza A (Acute) Acute respiratory failure with hypoxia (Acute) Debility (Acute) Vital Signs Temp Pulse Resp BP Pulse Ox 97.4 F L 97 16 131/70 H 92 01/19/21 14:49 01/19/21 14:49 01/19/21 14:49 01/19/21 14:49 01/19/21 14:49 Oxygen Flow Rate (L/min) 3 Oxygen Delivery Method Nasal Cannula Weight: 102.965 kg Body Mass Index (BMI) 36.6 Sodium 139 mmol/L (136-145) 01/19/21 04:24 Potassium 3.8 mmol/L (3.5-5.1) 01/19/21 04:24 Chloride 103 mmol/L (98-107) 01/19/21 04:24 Carbon Dioxide 29.0 mmol/L (21.0-32.0) 01/19/21 04:24 Anion Gap 7 (5-15) 01/19/21 04:24 BUN 21 mg/dL (7-18) H 01/19/21 04:24 Creatinine 0.71 mg/dL (0.55-1.02) 01/19/21 04:24 Est GFR (MDRD) Af Amer 105 mL/min (>60) 01/19/21 04:24 Est GFR (MDRD) Non-Af 87 mL/min (>60) 01/19/21 04:24 BUN/Creatinine Ratio 29.4 RATIO (10-20) H 01/19/21 04:24 Glucose 88 mg/dL (74-106) 01/19/21 04:24 Assessment/Plan: 1. Pain: naproxen 500mg PO Q12H PRN pain 1-5/10 and hydrocodone/acetaminophen 5/325mg 1T PO Q6H PRN pain 6-10/10. Please continue to monitor for increased pain, PRN usage, constipation and respiratory depression. 2. DVT prophylaxis: enoxaparin 40mg SC daily. Please continue to monitor for S/S of bleeding, hemoglobin (last 13.2g/dL), platelets (last 245,000) and renal function. 3. Influenza A: oseltamivir 75mg PO BID thru 01/22/21. Please continue to monitor renal function and S/S of infection. *4. COPD: albuterol MDI 2puffs Q4H PRN SOB/wheezing, Duoneb 3mL inhalation Q6HWA.RT PRN shortness of breath and prednisone 40mg PO breakfast thru 01/28/21. Please clarify if albuterol or Duoneb should be used first line for SOB. Thanks. Please continue to monitor for increased glucose (last 88mg/dL), WBC, SOB, wheezing and PRN usage. 5. CAD: lisinopril 10mg PO daily. Please continue to monitor BP (last 131/70), cough, renal function and potassium (last 3.8mmol/L). 6. GERD: pantoprazole 40mg PO daily. Please continue to monitor for S/S of GERD and diarrhea. 7. Hypothyroidism: levothyroxine 25mg PO daily. Please consider ordering a TSH if clinically appropriate. Patient did not have one in the chart. Thanks. 8. Allergic rhinitis: Flonase nasal spray 0.05% 2sprays nasal daily and loratadine 10mg PO daily. Please continue to monitor for allergy symptoms. Psychotropic Medications: 1. Depression: sertraline 200mg PO daily. Please see physician note regarding GDR. Unnecessary Medications: None Bowel Regimen: senna/docusate 1T PO BID and bisacodyl 10mg PO daily PRN constipation. Please continue to monitor for constipation and PRN usage. Date of Note:: 01/19/21
--- NOTE | 2021-01-19 15:22 | NURSING ---
pt had picture of vaccination for covid on phone. dates placed in immunizations on Summary page.
[2021-01-19 20:00] VITALS: PULSE 73; RESP 17
[2021-01-19] MEDS: HYDROcodone Bitartrate/Apap 5/325 Tablet PO (20:14)
--- NOTE | 2021-01-19 20:19 | NURSING ---
pt requested breathing treatment prn and was provided relief following treatment. Pt encouraged to breath deep.
[2021-01-20 06:24] VITALS: BP 132/65; PULSE 69; RESP 17; TEMP 36.2; O2SAT 94
[2021-01-20] MEDS: Fluticasone 0.05% 1 SPRAY NASAL.SRY 2 SPRAY NASAL (06:30)
[2021-01-20] MEDS: Senna/Docusate Sodium 1 Tablet PO ×2 (06:54→17:05)
[2021-01-20] MEDS: Levothyroxine 25 MCG TABLET PO (06:54)
[2021-01-20] MEDS: Oseltamivir Phosphate 30 MG Capsule PO ×2 (06:54→17:05)
[2021-01-20] MEDS: Pantoprazole Sodium 40 MG Tablet PO (06:54)
[2021-01-20] MEDS: Enoxaparin 40 MG/0.4 ML Syringe SC (06:54)
[2021-01-20] MEDS: Oseltamivir Phosphate 45 MG Capsule PO ×2 (06:54→17:05)
[2021-01-20] MEDS: Sertraline 100 MG Tablet 200 MG PO (06:55)
[2021-01-20] MEDS: Lisinopril 10 MG Tablet PO (06:55)
[2021-01-20] MEDS: Loratadine 10 MG Tablet PO (06:55)
[2021-01-20] MEDS: predniSONE 20 MG Tablet 40 MG PO (08:17)
[2021-01-20 10:00] VITALS: PULSE 64
[2021-01-20 15:38] VITALS: BP 141/87; PULSE 90; RESP 20; TEMP 35.7; O2SAT 95
[2021-01-21] MEDS: Levothyroxine 25 MCG TABLET PO (06:09)
[2021-01-21] MEDS: Enoxaparin 40 MG/0.4 ML Syringe SC (06:09)
[2021-01-21] MEDS: Oseltamivir Phosphate 30 MG Capsule PO ×2 (06:09→16:59)
[2021-01-21] MEDS: Lisinopril 10 MG Tablet PO (06:09)
[2021-01-21] MEDS: Senna/Docusate Sodium 1 Tablet PO ×2 (06:09→16:59)
[2021-01-21] MEDS: Pantoprazole Sodium 40 MG Tablet PO (06:09)
[2021-01-21] MEDS: Loratadine 10 MG Tablet PO (06:09)
[2021-01-21] MEDS: Oseltamivir Phosphate 45 MG Capsule PO ×2 (06:10→16:59)
[2021-01-21] MEDS: Fluticasone 0.05% 1 SPRAY NASAL.SRY 2 SPRAY NASAL (06:10)
[2021-01-21] MEDS: Sertraline 100 MG Tablet 200 MG PO (06:12)
[2021-01-21] MEDS: HYDROcodone Bitartrate/Apap 5/325 Tablet PO ×2 (08:38→20:37)
[2021-01-21] MEDS: predniSONE 20 MG Tablet 40 MG PO (08:38)
[2021-01-21 12:00] VITALS: O2SAT 92
[2021-01-21 14:12] VITALS: O2SAT 96
[2021-01-21 16:00] VITALS: BP 115/67; PULSE 85; RESP 20; TEMP 36.2; O2SAT 95
[2021-01-21 21:30] VITALS: PULSE 78; RESP 16; O2SAT 96
[2021-01-22] MEDS: Enoxaparin 40 MG/0.4 ML Syringe SC (05:35)
[2021-01-22] MEDS: Lisinopril 10 MG Tablet PO (05:36)
[2021-01-22] MEDS: Sertraline 100 MG Tablet 200 MG PO (05:36)
[2021-01-22] MEDS: Levothyroxine 25 MCG TABLET PO (05:36)
[2021-01-22] MEDS: Oseltamivir Phosphate 30 MG Capsule PO ×2 (05:36→17:30)
[2021-01-22] MEDS: Senna/Docusate Sodium 1 Tablet PO ×2 (05:36→17:30)
[2021-01-22] MEDS: Oseltamivir Phosphate 45 MG Capsule PO ×2 (05:36→17:30)
[2021-01-22] MEDS: Pantoprazole Sodium 40 MG Tablet PO (05:36)
[2021-01-22] MEDS: Loratadine 10 MG Tablet PO (05:36)
--- NOTE | 2021-01-22 08:10 | NURSING ---
declined flonase at 0600, requested to be administered later this morning
[2021-01-22 09:15] VITALS: O2SAT 94
[2021-01-22] MEDS: predniSONE 20 MG Tablet 40 MG PO (10:28)
[2021-01-22] MEDS: Fluticasone 0.05% 1 SPRAY NASAL.SRY 2 SPRAY NASAL (10:28)
[2021-01-22] MEDS: Naproxen 500 MG Tablet PO (11:31)
[2021-01-22 13:23] VITALS: BP 118/64; PULSE 82; RESP 16; TEMP 36.3; O2SAT 95
[2021-01-22 15:13] VITALS: O2SAT 95
[2021-01-22 15:57] VITALS: PULSE 85; RESP 20; O2SAT 95
[2021-01-22] MEDS: Ipratropium/Albuterol Sulfate 3 ML AMPUL.NEB INHALATION (15:57)
[2021-01-23] MEDS: Pantoprazole Sodium 40 MG Tablet PO (05:29)
[2021-01-23] MEDS: Levothyroxine 25 MCG TABLET PO (05:30)
[2021-01-23] MEDS: Enoxaparin 40 MG/0.4 ML Syringe SC (05:30)
[2021-01-23] MEDS: Sertraline 100 MG Tablet 200 MG PO (05:30)
[2021-01-23] MEDS: Lisinopril 10 MG Tablet PO (05:30)
[2021-01-23] MEDS: Fluticasone 0.05% 1 SPRAY NASAL.SRY 2 SPRAY NASAL (05:30)
[2021-01-23] MEDS: Oseltamivir Phosphate 45 MG Capsule PO (05:30)
[2021-01-23] MEDS: Loratadine 10 MG Tablet PO (05:31)
[2021-01-23] MEDS: Senna/Docusate Sodium 1 Tablet PO (05:31)
[2021-01-23] MEDS: Oseltamivir Phosphate 30 MG Capsule PO (05:31)
[2021-01-23] MEDS: predniSONE 20 MG Tablet 40 MG PO (09:19)
[2021-01-23] MEDS: Naproxen 500 MG Tablet PO (09:21)
[2021-01-23 15:37] VITALS: BP 116/77; PULSE 95; RESP 18; TEMP 36.5; O2SAT 92
[2021-01-23 17:54] VITALS: O2SAT 93
[2021-01-23 23:05] VITALS: PULSE 66; RESP 12; O2SAT 96
[2021-01-24] MEDS: Fluticasone 0.05% 1 SPRAY NASAL.SRY 2 SPRAY NASAL (05:27)
[2021-01-24] MEDS: Lisinopril 10 MG Tablet PO (05:28)
[2021-01-24] MEDS: Levothyroxine 25 MCG TABLET PO (05:28)
[2021-01-24] MEDS: Enoxaparin 40 MG/0.4 ML Syringe SC (05:28)
[2021-01-24] MEDS: Sertraline 100 MG Tablet 200 MG PO (05:28)
[2021-01-24] MEDS: Loratadine 10 MG Tablet PO (05:29)
[2021-01-24] MEDS: Pantoprazole Sodium 40 MG Tablet PO (05:29)
[2021-01-24] MEDS: predniSONE 20 MG Tablet 40 MG PO (08:13)
--- NOTE | 2021-01-24 11:38 | CASEMGMT ---
Social Work Completed BIMS and PHQ-9 for MDS assessment. During assessment, pt very open about struggles at home between her and her son that have been ongoing for many years. Pt expressed son thinks pt's money, car, house, etc., is also is and he doesn't do anything for himself. She states son does not have a job and cannot get one d/t medical conditions. She explained she wants to live her life without being talked down to from her son and worrying about him. Provided supportive listening. Discussed enabling and legally he does not have a right to live in her house, take her money or drive her car, thus if she does not want him to do any of those things, she has a right to say no. Pt continued to make excuses for his lifestyle r/t to his upbringing, her being unprepared for and not making good choices with marriage, etc., yet complains about his actions and how he treats her. Recommended counseling - provided resources. SW attempted to empower pt to make choices for herself and hold son accountable and encourage him to become responsible. Discussed making informal written contract with examples of giving him 60 days to find his own home, no longer giving him her debit card, making him buy his own groceries and pay utilities, no longer allowing him to drive her car, etc. Explained to stop making excuses for son and she is the only person who can change this situation. Pt stated she does not like confrontation and this worker sounds like her friends as she only likes to b[facility] about it but doesn't do anything to change it. SW offered continued support and assistance to pt for change, but reiterated she needs to have the motivation to do so before anything can change. Offered to make counseling appt with agency of her choosing prior to DC, if she preferred. Pt appreciative of SW time and support. SW continue to follow. Jammie Christopher, COMPUTER FORENSICS ANALYST ESTIMATOR
[2021-01-24 13:11] VITALS: BP 132/71; PULSE 96; RESP 18; TEMP 36.7; O2SAT 93
--- NOTE | 2021-01-24 14:43 | NURSING ---
Pt out of droplet precautions today per policy
[2021-01-24 21:07] VITALS: PULSE 74; RESP 18; O2SAT 95
[2021-01-25] MEDS: Levothyroxine 25 MCG TABLET PO (06:31)
[2021-01-25] MEDS: Loratadine 10 MG Tablet PO (06:31)
[2021-01-25] MEDS: Fluticasone 0.05% 1 SPRAY NASAL.SRY 2 SPRAY NASAL (06:31)
[2021-01-25] MEDS: Lisinopril 10 MG Tablet PO (06:31)
[2021-01-25] MEDS: Pantoprazole Sodium 40 MG Tablet PO (06:31)
[2021-01-25] MEDS: Sertraline 100 MG Tablet 200 MG PO (06:31)
[2021-01-25] MEDS: Enoxaparin 40 MG/0.4 ML Syringe SC (06:32)
[2021-01-25 06:33] VITALS: BP 129/53; PULSE 74
[2021-01-25 06:40] VITALS: O2SAT 94
[2021-01-25] MEDS: predniSONE 20 MG Tablet 40 MG PO (08:16)
--- NOTE | 2021-01-25 11:56 | NURSING ---
MODERNA BOOSTER GIVEN IN LEFT DELT. PT TOLERATED WELL. WILL MONITOR.
[2021-01-25 14:42] VITALS: BP 132/78; PULSE 93; RESP 20; TEMP 35.8; O2SAT 94
[2021-01-25] MEDS: Senna/Docusate Sodium 1 Tablet PO (16:50)
--- NOTE | 2021-01-25 16:58 | CHAPLAIN ---
Type of Pastoral Visit _x__ Initial Visit ___ Follow-up Visit ___ On-call Visit ___ General Patient Visit ___ Spiritual Assessment ___ Family Conference ___ Bereavement ___ Rapid Response ___ Code Blue ___ Other (describe below) Pastoral Care Referral From _x__ Patient ___ Family ___ Nurse ___ Physician _x__ Offset Second Press Operator ___ Supervisory Historian ___ Other (describe below) Sacrament/Intervention _x__ Active listening ___ Anointing ___ Episcopal ___ Bereavement ___ Communion _x__ [place] exploration ___ _x__ Life review _x__ Prayer ___ Reconciliation ___ Sacrament of Sick _x__ Supportive presence ___ Wedding ___ Other (describe below) Pastoral Comments patient quick to talk about her life and the hurts she has endured and the present situation of an adult living with her who 'thinks all my things are his'; pt 'unloads' a lot of emotional pain, states she has agreed to do counseling at discharge, and needs to make some major changes that my son is not going to like; pt states her source of encouragement are her friends; pt was raised in a moravian going home but only talks to God occasionally now, although it might be better if I do more of that; discussion with patient about what makes her peaceful and content; pt is open to future visits; pt agreeable for prayer support
[2021-01-26 05:33] LABS: Absolute Lymphocyte Count 1.59 X10^3/uL (0.83-4.51); Absolute Neutrophil Count 7.6 X10^3/uL (2.0-7.7); Basophil# 0.03 X10^3/uL; Basophil% 0.3 % (0-1); Eosinophil# 0.01 X10^3/uL; Eosinophils% 0.1 % (0-5); Hematocrit 41.8 % (37-47); Hemoglobin 13.7 g/dL (12.0-15.0); Lymphocyte # 1.59 X10^3/ul (0.83-4.51); Lymphocyte % 15.7 % (19-41); Mean Corp Hgb Conc 32.8 g/dL (32-36); Mean Corpuscular Hgb 28.2 pg (27.0-32.0); Mean Corpuscular Volume 86.2 fL (81-99); Mean Platelet Vol. 10.2 fl (6.2-12.0); Monocyte# 0.78 X10^3/uL; Monocyte% 7.7 % (0-10); NRBC Flagged by Analyzer 0 % (0-5); Neutrophil # 7.63 X10^3/uL (2.7-7.7); Neutrophil % 75.3 % (47-70); POSITIVE COUNT YES; Platelet Count 189 K/mm3 (150-450); RBC Distribution Width CV 13.5 % (11.6-14.6); RBC Distribution Width SD 42.3 fl (35.1-43.9); Red Blood Count 4.85 M/mm3 (4.2-5.4); White Blood Count 10.1 K/mm3 (4.4-11.0)
[2021-01-26 05:35] LABS: Differential Indicated SCAN CRITERIA MET
[2021-01-26 05:44] LABS: Anion Gap 6 (5-15); BUN 21 mg/dL (7-18); BUN/Creat Ratio 31.2 RATIO (10-20); Calcium,Total 8.2 mg/dL (8.5-10.1); Chloride 102 mmol/L (98-107); Creatinine, Serum 0.67 mg/dL (0.55-1.02); EST Glomerular Filtration Rate 93 mL/min (>60); Est Glom Filt Rate - Afr Amer 112 mL/min (>60); Estimated Creatinine Clearance 51.81 ml/min; Glucose 87 mg/dL (74-106); Potassium 4.8 mmol/L (3.5-5.1); Sodium Level 133 mmol/L (136-145)
[2021-01-26 05:46] LABS: Differential Comment SCANNED; Platelet Estimate ADEQUATE (ADEQ)
[2021-01-26] MEDS: Enoxaparin 40 MG/0.4 ML Syringe SC (06:48)
[2021-01-26] MEDS: Levothyroxine 25 MCG TABLET PO (06:48)
[2021-01-26] MEDS: Senna/Docusate Sodium 1 Tablet PO (06:48)
[2021-01-26] MEDS: Sertraline 100 MG Tablet 200 MG PO (06:48)
[2021-01-26] MEDS: Lisinopril 10 MG Tablet PO (06:48)
[2021-01-26] MEDS: Pantoprazole Sodium 40 MG Tablet PO (06:48)
[2021-01-26] MEDS: Loratadine 10 MG Tablet PO (06:48)
[2021-01-26] MEDS: Fluticasone 0.05% 1 SPRAY NASAL.SRY 2 SPRAY NASAL (06:50)
[2021-01-26 07:40] VITALS: O2SAT 94
[2021-01-26] MEDS: predniSONE 20 MG Tablet 40 MG PO (08:11)
[2021-01-26] MEDS: Tuberculin,Purif.prot.deriv. 50 TU/ML Vial 0.1 ML ID (09:31)
--- NOTE | 2021-01-26 09:50 | NURSING ---
toenails trimmed per this rn after pt showered and skin intact
--- NOTE | 2021-01-26 11:13 | CASEMGMT ---
Addendum entered by Jammie Christopher 01/26/21 13:16: Left message with therapist to inquire about recommended family counseling centers. Will await return phone call. Addendum entered by Jammie Christopher 01/26/21 11:45: This worker was walking by pt room and overhead son on speaker phone with pt yelling and cussing. Asked permission from pt to enter - granted. In brief, son expressed ongoing frustration with how pt had raised him, how she treats him currently, how much he does for her, that he just went home and cleaned up all of her feces from the bathroom. Son distraught, angry, and began crying expressing his feelings, but reiterated several times how much he loves his mom. Several comments were made from son and pt that there were regrets with son being born, how pt just wants my life back and to quit worrying about son. Pt expressed several times in conversation with this worker, she enjoys partying, smoking (cigarettes and marijuana) and wants to return to that lifestyle; which is also her motivation in wanting to DC home in time for [facility]. Intervened in conversation and validated each of their feelings. Offered there is a lot of hurt and different perspectives of how their lives are going, and suggested family counseling in conjunction with individual counseling. Both agreeable to participate. Praised for agreement. Suggested for son and pt to take the rest of the day individually and not talk to each other, then reconvene tomorrow. Both agreed, said their 'I love yous' and son to call pt tomorrow morning. Pt became tearful as well. Validated feelings. Provided ongoing supportive listening. Explained this worker will contact the counseling agencies to get appts scheduled after pt discharged. Recommended pt use notebook to write down all of her feelings, past and present - regrets, goals, complaints, issues, etc. to express emotions and feelings. Pt agreed. Provided pen and notebook, shut room door and will follow up with pt later. Pt appreciative. SW to continue to follow. SW will contact APS at [facility] to follow up in the home. Original Note: Social Work Prior to entry to care plan meeting, pt asked to speak with SW. Pt states she does not want her son present during the care plan meeting. Son about to enter and SW and MDS nurse assisted in updating son in pt's new request and apologized for inconvenience. Son visibly upset and wanted to proceed to room. Reiterated pt would like to have meeting by herself. Son stated it's because she doesn't want you all to know the truth. The house has black mold in it, her toilet hasn't worked in years, the place is disgusting. SW expressed appreciation for son's concern and information and that this worker has had several honest conversations with pt. Son reluctantly did leave the hospital. IDT proceeded with care plan meeting. Notified pt that two staff members tested positive for COVID. Discussed patient's progress in PT/OT and nursing. Pt progressing well. Still needs O2 at rest and higher liter flow with exertion. Explained Medicare benefit. Encouraged to contact secondary insurance to ensure copay coverage. Pt requesting to DC 02/03. SW did inquire about a working toilet in the home. Pt states her son's toilet works, but hers does not. Asked where she goes to the bathroom. She said if she is in the central part of the house watching tv, etc., she will use her son's bathroom, but if she is in her bedroom, his is too far away and she uses her toilet. Questioned for further details on the toilet. She stated the toilet does not flush and doesn't fill up with water, so she wouldn't put the toilet paper in the toilet, she would throw it away. Asked how long that has been going on and to define awhile. She said at least a year. She stated she just doesn't have the money right now to get it fixed until next month. Suggested while she's admitted and has the time, to start contacting plumbers, etc., to get quotes on cost of repairs and schedule the repair for after she gets the money or see if they can do the work now, and be billed to pay next month. Inquired about black mold claim from son. Pt agreed there has been mold on her ceiling; she needs a new roof, but currently needs a new tarp; this would be her third tarp because the roof leaks. Again, acknowledge the expense of getting a new roof, but suggested doing research to that cost and/or to research fixing that leak for a better 'bandaid'. Explained mold is dangerous to her and her son's health, and could be a contributor to her pulmonary issues. Pt agreed and expressed understanding. SW requested to keep this worker updated on progress of phone calls, etc. in preparation for DC 02/03. Suggested providing pt with notebook to write down information she gathers. Pt agreed. Revisited suggested counseling at DC. Pt chose 3 different agencies she would be interested in. SW offered to contact agencies to see whom can meet her needs best. Pt agreed. SW to continue to follow for support and safe DC planning. Jammie Christopher, AUDIT MGR IC DESIGN ENGINEER
[2021-01-26 12:50] VITALS: BP 109/72; PULSE 85; RESP 18; TEMP 36.6; O2SAT 92
[2021-01-26] MEDS: Calcium Carbonate 500 MG Tablet PO (17:08)
[2021-01-26] MEDS: Albuterol Sulfate 8 gm Inhaler (60 puffs) 2 PUFF INHALATION (20:02)
--- NOTE | 2021-01-26 20:40 | DS.PCM_ITS ---
Providers Date of Admission: 01/18/21 Primary Care Physician: Dr. Delta Mane MD Reason For Visit: INFLUENZA A/ SOB Diagnosis Discharge Diagnosis (1) Debility: Status: Acute Code(s): R53.81 - Other malaise (2) Acute respiratory failure with hypoxia: Status: Acute Code(s): J96.01 - Acute respiratory failure with hypoxia (3) Influenza A: Status: Acute Code(s): J10.1 - Influenza due to other identified influenza virus with other respiratory manifestations (4) COPD exacerbation: Status: Chronic Code(s): J44.1 - Chronic obstructive pulmonary disease with (acute) exacerbation (5) NSTEMI (non-ST elevated myocardial infarction): Status: Acute Code(s): I21.4 - Non-ST elevation (NSTEMI) myocardial infarction (6) Lung nodule: Status: Acute Code(s): R91.1 - Solitary pulmonary nodule (7) Tobacco abuse: Status: Acute Code(s): Z72.0 - Tobacco use (8) Gastroesophageal reflux disease: Status: Acute Code(s): K21.9 - Gastro-esophageal reflux disease without esophagitis (9) Hypertension: Status: Chronic Code(s): I10 - Essential (primary) hypertension (10) Hypothyroidism: Status: Acute Code(s): E03.9 - Hypothyroidism, unspecified (11) Allergic rhinitis: Status: Acute Code(s): J30.9 - Allergic rhinitis, unspecified Medications at Discharge Home Medications hydrocodone-acetaminophen 1 tab PO Q6H PRN PRN 07/08/15 naproxen sodium [Aleve] 440 mg PO Q12H PRN PRN 07/08/15 albuterol sulfate [Ventolin HFA] 2 puff INHALATION Q4H PRN PRN #3 inhaler 01/21/16 Zyrtec 10 mg PO DAILY 04/11/17 levothyroxine 25 mcg PO DAILY 04/11/17 fluticasone propionate 2 spray NASAL DAILY 04/23/19 pantoprazole 40 mg PO DAILY 04/23/19 sertraline 200 mg PO DAILY 01/18/21 lisinopril 10 mg PO DAILY 30 Days #30 tab 01/26/21 Hospital Course Operations None Procedures None Summary of Care Provided Minutes Spent on Discharge: 35 Hospital Course: 65 year old female with below past medical history hospitalized for acute respiratory failure with hypoxia secondary to influenza A, COPD exacerbation, complicated by NSTEMI, admitted to TCU with debility, here for rehabilitation, strengthening, prior to discharge home alone. Discharge home 02/03/2021, [facility] PT/OT/SW. Physical Exam Const alert and oriented x3 General Appearance: cooperative HEENT normocephalic Eyes PERRL and EOMs intact bilaterally Neck supple, no JVD and no carotid bruits Resp normal respiratory effort, normal air movement and clear to auscultation bilaterally Cardio regular rate and regular rhythm GI normal to inspection, nondistended, normoactive bowel sounds, non-tender and non-distended Extremity normal capillary refill General Extremity: Negative for edema Skin no rashes or lesions noted General Skin Exam: no breakdown Psych affect normal Appearance: appropriate Weight / BMI Weight Weight: 102.693 kg Body Mass Index (BMI) 36.6 ABG / Lab / Microbiology Data Result Diagrams: 01/26/21 05:05 01/26/21 05:05 Laboratory: Laboratory Results - last 24 hr 01/26/21 05:05: WBC 10.1, RBC 4.85, Hgb 13.7, Hct 41.8, MCV 86.2, MCH 28.2, MCHC 32.8, RDW Std Deviation 42.3, RDW Coeff of Kanika 13.5, Plt Count 189, MPV 10.2, Immature Gran % (Auto) 0.900, Neut % (Auto) 75.3 H, Lymph % (Auto) 15.7 L, [place] % (Auto) 7.7, Eos % (Auto) 0.1, Baso % (Auto) 0.3, Absolute Neuts (auto) 7.6, Absolute Lymphs (auto) 1.59, Nucleated RBC % 0, Differential Comment SCANNED, Platelet Estimate ADEQUATE 01/26/21 05:05: Sodium 133 L, Potassium 4.8, Chloride 102, Carbon Dioxide 25.0, Anion Gap 6, BUN 21 H, Creatinine 0.67, Estim Creat Clear Calc 51.81, Est GFR (MDRD) Af Amer 112, Est GFR (MDRD) Non-Af 93, BUN/Creatinine Ratio 31.2 H, Glucose 87, Calcium 8.2 L D/C Instructions Discharge Diet: No restrictions Discharge Activity: Return to Normal Activity, May Shower and Use Walker May resume sexual activity in: No Restrictions Weight Bearing Status: Weight bearing as tolerated Call your doctor if you observe: Fever of 101 or Higher, Inability to urinate, Inability to have a bowel movement, Shortness of breath, Dizziness, Fainting spells, Swelling in the ankles, Chest pain and Uncontrolled pain Additional Instructions: Discharge home 02/03/2021, [facility] PT/OT/SW. Meaningful Use Info Meaningful Use Diagnoses (Choose all that apply): None applicable Discharge Plan Admission Admit Date/Time: 01/18/21 16:45 Primary Reason for Your Visit: Debility. Attending Provider: John Hollis Chi Primary Care Provider: Delta Mane Instructions Additional Instructions / Restrictions: Discharge home 02/03/2021, [facility] Care PT/OT/SW. Discharge Orders/Prescriptions Prescriptions: New lisinopril 10 mg Tablet 10 mg PO DAILY 30 Days Qty: 30 RF: 0 Continued naproxen sodium [Aleve] 220 MG tablet 440 mg PO Q12H PRN PRN (Reason: Pain) RF: 0 hydrocodone-acetaminophen 1 TABLET tablet 1 tab PO Q6H PRN PRN (Reason: Pain) RF: 0 albuterol sulfate [Ventolin HFA] 1 INHALER inhaler 2 puff inhalation Q4H PRN PRN (Reason: Shortness of breath, wheezing) Qty: 3 RF: 3 levothyroxine 25 MCG tablet 25 mcg PO DAILY RF: 0 Zyrtec 10 MG capsule 10 mg PO DAILY RF: 0 pantoprazole 40 MG tablet 40 mg PO DAILY RF: 0 fluticasone propionate 1 SPRAY spray,suspension 2 spray NASAL DAILY RF: 0 sertraline 100 mg tablet 200 mg PO DAILY RF: 0 Discontinued lisinopril 5 MG tablet 10 mg PO DAILY Qty: 0 RF: 0 prednisone 20 mg tablet 40 mg PO DAILY RF: 0 oseltamivir [Tamiflu] 75 mg capsule 75 mg PO BID RF: 0 Referrals / Follow Up: Delta Mane MD [Primary Care Provider] - Romain Maza MD [STAFF PHYSICIAN] - 03/17/21 12:45 pm (will call pt with any sooner cancellations) Disposition Disposition (needs filled in before D/C Order can be placed): Home Health Service
[2021-01-27] MEDS: Loratadine 10 MG Tablet PO (06:25)
[2021-01-27] MEDS: Senna/Docusate Sodium 1 Tablet PO (06:25)
[2021-01-27] MEDS: Pantoprazole Sodium 40 MG Tablet PO (06:25)
[2021-01-27] MEDS: Levothyroxine 25 MCG TABLET PO (06:25)
[2021-01-27] MEDS: Sertraline 100 MG Tablet 200 MG PO (06:25)
[2021-01-27] MEDS: Enoxaparin 40 MG/0.4 ML Syringe SC (06:25)
[2021-01-27] MEDS: Lisinopril 10 MG Tablet PO (06:25)
[2021-01-27] MEDS: Fluticasone 0.05% 1 SPRAY NASAL.SRY 2 SPRAY NASAL (06:26)
[2021-01-27] MEDS: Calcium Carbonate 500 MG Tablet PO ×2 (08:10→16:23)
[2021-01-27] MEDS: predniSONE 20 MG Tablet 40 MG PO (08:10)
[2021-01-27 10:03] VITALS: O2SAT 92
--- NOTE | 2021-01-27 14:00 | NURSING ---
Resident informed of staff members testing positive for COVID.
[2021-01-27 15:26] VITALS: BP 126/86; PULSE 92; RESP 14; TEMP 36.7; O2SAT 98
[2021-01-27] MEDS: HYDROcodone Bitartrate/Apap 5/325 Tablet PO (19:42)
[2021-01-27 19:50] VITALS: PULSE 83; RESP 14; O2SAT 97
[2021-01-28] MEDS: Enoxaparin 40 MG/0.4 ML Syringe SC (05:28)
[2021-01-28] MEDS: Loratadine 10 MG Tablet PO (05:28)
[2021-01-28] MEDS: Pantoprazole Sodium 40 MG Tablet PO (05:28)
[2021-01-28] MEDS: Sertraline 100 MG Tablet 200 MG PO (05:29)
[2021-01-28] MEDS: Senna/Docusate Sodium 1 Tablet PO ×2 (05:29→16:26)
[2021-01-28] MEDS: Lisinopril 10 MG Tablet PO (05:29)
[2021-01-28] MEDS: Levothyroxine 25 MCG TABLET PO (05:29)
[2021-01-28] MEDS: Fluticasone 0.05% 1 SPRAY NASAL.SRY 2 SPRAY NASAL (05:29)
[2021-01-28] MEDS: predniSONE 20 MG Tablet 40 MG PO (08:52)
[2021-01-28] MEDS: Calcium Carbonate 500 MG Tablet PO ×2 (08:52→16:25)
[2021-01-28 09:03] VITALS: O2SAT 93
[2021-01-28] MEDS: HYDROcodone Bitartrate/Apap 5/325 Tablet PO (09:04)
[2021-01-28 10:00] VITALS: PULSE 86; RESP 16; O2SAT 95
[2021-01-28 16:00] VITALS: BP 123/75; PULSE 90; RESP 20; TEMP 36.6; O2SAT 95
[2021-01-28] MEDS: Albuterol Sulfate 8 gm Inhaler (60 puffs) 2 PUFF INHALATION (16:25)
[2021-01-28] MEDS: Naproxen 500 MG Tablet PO (20:43)
[2021-01-29] MEDS: Enoxaparin 40 MG/0.4 ML Syringe SC (05:42)
[2021-01-29] MEDS: Lisinopril 10 MG Tablet PO (05:44)
[2021-01-29] MEDS: Pantoprazole Sodium 40 MG Tablet PO (05:44)
[2021-01-29] MEDS: Sertraline 100 MG Tablet 200 MG PO (05:44)
[2021-01-29] MEDS: Loratadine 10 MG Tablet PO (05:44)
[2021-01-29] MEDS: Levothyroxine 25 MCG TABLET PO (05:44)
[2021-01-29] MEDS: Senna/Docusate Sodium 1 Tablet PO ×2 (05:44→16:59)
[2021-01-29] MEDS: Fluticasone 0.05% 1 SPRAY NASAL.SRY 2 SPRAY NASAL (05:45)
[2021-01-29] MEDS: Calcium Carbonate 500 MG Tablet PO ×2 (08:21→16:59)
[2021-01-29 15:37] VITALS: BP 116/91; PULSE 83; RESP 20; TEMP 35.8; O2SAT 96
[2021-01-29 15:38] VITALS: O2SAT 94
[2021-01-30] MEDS: Naproxen 500 MG Tablet PO ×2 (02:12→15:00)
[2021-01-30] MEDS: Sertraline 100 MG Tablet 200 MG PO (05:47)
[2021-01-30] MEDS: Senna/Docusate Sodium 1 Tablet PO ×2 (05:47→17:26)
[2021-01-30] MEDS: Fluticasone 0.05% 1 SPRAY NASAL.SRY 2 SPRAY NASAL (05:47)
[2021-01-30] MEDS: Enoxaparin 40 MG/0.4 ML Syringe SC (05:47)
[2021-01-30] MEDS: Pantoprazole Sodium 40 MG Tablet PO (05:47)
[2021-01-30] MEDS: Levothyroxine 25 MCG TABLET PO (05:47)
[2021-01-30] MEDS: Loratadine 10 MG Tablet PO (05:48)
[2021-01-30] MEDS: Lisinopril 10 MG Tablet PO (05:48)
[2021-01-30 05:52] VITALS: BP 148/68; PULSE 63
[2021-01-30 06:55] VITALS: O2SAT 96
[2021-01-30] MEDS: Calcium Carbonate 500 MG Tablet PO ×2 (08:34→17:26)
[2021-01-30 12:38] VITALS: BP 109/69; PULSE 80; RESP 18; TEMP 36.7; O2SAT 94
--- NOTE | 2021-01-30 21:20 | NURSING ---
Pt informs this nurse upon dc on 02/03, she would like to democrat with friends but is having second thoughts. Strongly encouraged pt to stay home to prevent regression of current condition and prevent rehospitalization.
[2021-01-30] MEDS: Albuterol Sulfate 8 gm Inhaler (60 puffs) 2 PUFF INHALATION (21:41)
[2021-01-30 21:50] VITALS: O2SAT 97
[2021-01-31 06:10] VITALS: BP 117/63; PULSE 67; RESP 20; TEMP 35.7; O2SAT 96
[2021-01-31] MEDS: Sertraline 100 MG Tablet 200 MG PO (06:11)
[2021-01-31] MEDS: Loratadine 10 MG Tablet PO (06:12)
[2021-01-31] MEDS: Fluticasone 0.05% 1 SPRAY NASAL.SRY 2 SPRAY NASAL (06:12)
[2021-01-31] MEDS: Levothyroxine 25 MCG TABLET PO (06:12)
[2021-01-31] MEDS: Pantoprazole Sodium 40 MG Tablet PO (06:12)
[2021-01-31] MEDS: Naproxen 500 MG Tablet PO (06:13)
[2021-01-31] MEDS: Enoxaparin 40 MG/0.4 ML Syringe SC (06:13)
[2021-01-31] MEDS: Senna/Docusate Sodium 1 Tablet PO ×2 (06:13→16:55)
[2021-01-31] MEDS: Lisinopril 10 MG Tablet PO (06:13)
[2021-01-31 07:13] VITALS: O2SAT 96
--- NOTE | 2021-01-31 07:55 | NURSING ---
Left vm for Jammie NORWOOD, requesting pt be tested for O2 with respiratory therapy while at rest during the day and with activity as pt does not have O2 at home. Pt may need an overnight oximetry study if testing during the day does not reflect the need for supplemental O2 while at rest and/or with activity.
[2021-01-31] MEDS: Calcium Carbonate 500 MG Tablet PO ×2 (07:56→16:55)
[2021-01-31] MEDS: HYDROcodone Bitartrate/Apap 5/325 Tablet PO ×2 (09:42→21:26)
--- NOTE | 2021-01-31 12:19 | CASEMGMT ---
Social Work Brief interview for mental status (BIMS) and resident mood interview (PHQ-9) completed on this day. BIMS score . PHQ-9 score 06/01. Isabella ALEGRIA, RICKS
--- NOTE | 2021-01-31 13:09 | MDS.RN ---
Information for the mds was obtained from review of the clinical record, interview of resident, staff, and direct observation of resident's care.
[2021-02-01 05:52] VITALS: BP 113/58; PULSE 75
[2021-02-01] MEDS: Fluticasone 0.05% 1 SPRAY NASAL.SRY 2 SPRAY NASAL (05:52)
[2021-02-01] MEDS: Loratadine 10 MG Tablet PO (05:53)
[2021-02-01] MEDS: Pantoprazole Sodium 40 MG Tablet PO (05:54)
[2021-02-01] MEDS: Lisinopril 10 MG Tablet PO (05:54)
[2021-02-01] MEDS: Senna/Docusate Sodium 1 Tablet PO ×2 (05:54→17:12)
[2021-02-01] MEDS: Sertraline 100 MG Tablet 200 MG PO (05:54)
[2021-02-01] MEDS: Enoxaparin 40 MG/0.4 ML Syringe SC (05:54)
[2021-02-01] MEDS: Levothyroxine 25 MCG TABLET PO (05:54)
[2021-02-01] MEDS: Calcium Carbonate 500 MG Tablet PO ×2 (07:50→17:12)
[2021-02-01] MEDS: Naproxen 500 MG Tablet PO ×2 (07:51→22:19)
[2021-02-01 14:53] VITALS: BP 105/69; PULSE 81; RESP 16; TEMP 36.3; O2SAT 96
[2021-02-01] MEDS: Albuterol Sulfate 8 gm Inhaler (60 puffs) 2 PUFF INHALATION (17:12)
[2021-02-01 22:24] VITALS: PULSE 74; RESP 18; O2SAT 96
[2021-02-02] MEDS: Fluticasone 0.05% 1 SPRAY NASAL.SRY 2 SPRAY NASAL (05:30)
[2021-02-02] MEDS: Enoxaparin 40 MG/0.4 ML Syringe SC (05:32)
[2021-02-02] MEDS: Senna/Docusate Sodium 1 Tablet PO ×2 (05:32→16:06)
[2021-02-02] MEDS: Loratadine 10 MG Tablet PO (05:32)
[2021-02-02] MEDS: Levothyroxine 25 MCG TABLET PO (05:32)
[2021-02-02] MEDS: Lisinopril 10 MG Tablet PO (05:32)
[2021-02-02] MEDS: Pantoprazole Sodium 40 MG Tablet PO (05:32)
[2021-02-02] MEDS: Sertraline 100 MG Tablet 200 MG PO (05:32)
[2021-02-02 05:35] VITALS: BP 106/65; PULSE 78
[2021-02-02 06:04] LABS: Absolute Lymphocyte Count 1.13 X10^3/uL (0.83-4.51); Absolute Neutrophil Count 5.5 X10^3/uL (2.0-7.7); Basophil# 0.02 X10^3/uL; Basophil% 0.3 % (0-1); Eosinophil# 0.28 X10^3/uL; Eosinophils% 3.7 % (0-5); Hematocrit 40.2 % (37-47); Hemoglobin 12.8 g/dL (12.0-15.0); Lymphocyte # 1.13 X10^3/ul (0.83-4.51); Mean Corp Hgb Conc 31.8 g/dL (32-36); Mean Corpuscular Hgb 28.3 pg (27.0-32.0); Mean Corpuscular Volume 88.7 fL (81-99); Mean Platelet Vol. 10.2 fl (6.2-12.0); Monocyte% 6.7 % (0-10); NRBC Flagged by Analyzer 0 % (0-5); Neutrophil # 5.52 X10^3/uL (2.7-7.7); Neutrophil % 73.5 % (47-70); Platelet Count 237 K/mm3 (150-450); RBC Distribution Width CV 13.5 % (11.6-14.6); RBC Distribution Width SD 43.8 fl (35.1-43.9); Red Blood Count 4.53 M/mm3 (4.2-5.4); White Blood Count 7.5 K/mm3 (4.4-11.0)
[2021-02-02 06:35] LABS: Anion Gap 6 (5-15); BUN 18 mg/dL (7-18); BUN/Creat Ratio 25.6 RATIO (10-20); Calcium,Total 8.5 mg/dL (8.5-10.1); Chloride 103 mmol/L (98-107); EST Glomerular Filtration Rate 89 mL/min (>60); Est Glom Filt Rate - Afr Amer 107 mL/min (>60); Estimated Creatinine Clearance 51.81 ml/min; Glucose 92 mg/dL (74-106); Potassium 4.4 mmol/L (3.5-5.1); Sodium Level 138 mmol/L (136-145)
[2021-02-02] MEDS: Calcium Carbonate 500 MG Tablet PO ×2 (08:01→16:06)
[2021-02-02 10:00] VITALS: O2SAT 96
[2021-02-02 11:17] VITALS: O2SAT 89; O2SAT 95
--- NOTE | 2021-02-02 11:48 | CASEMGMT ---
Social Work [facility] spoke with Freida at [facility] and confirmed that referral had been accepted and pt will be seen on 02/07/21 for PT/OT/SW. SW met with pt and pt is aware of home health and start date. Pt states that she heard back from [facility] and has an appointment on Wednesday 02/08 at 6pm. RN tested pt for home oxygen and pt does not qualify. Pt states her son will transport her home tomorrow at 10am. Referral made to APS regarding pt and son relationship as noted in previous documentation. No further d/c needs. Plan: Home with son. [facility] PT/OT/SW MARISELA Arguello
[2021-02-02 13:51] VITALS: O2SAT 96
[2021-02-02 16:00] VITALS: BP 152/89; PULSE 90; RESP 20; TEMP 36.8; O2SAT 95
[2021-02-02] MEDS: Naproxen 500 MG Tablet PO (20:35)
[2021-02-02 20:40] VITALS: PULSE 84; O2SAT 96
[2021-02-02] MEDS: HYDROcodone Bitartrate/Apap 5/325 Tablet PO (22:27)
[2021-02-03] MEDS: Fluticasone 0.05% 1 SPRAY NASAL.SRY 2 SPRAY NASAL (06:16)
[2021-02-03] MEDS: Levothyroxine 25 MCG TABLET PO (06:17)
[2021-02-03] MEDS: Senna/Docusate Sodium 1 Tablet PO (06:17)
[2021-02-03] MEDS: Loratadine 10 MG Tablet PO (06:17)
[2021-02-03] MEDS: Sertraline 100 MG Tablet 200 MG PO (06:17)
[2021-02-03] MEDS: Pantoprazole Sodium 40 MG Tablet PO (06:17)
[2021-02-03] MEDS: Lisinopril 10 MG Tablet PO (06:18)
[2021-02-03] MEDS: Enoxaparin 40 MG/0.4 ML Syringe SC (06:18)
[2021-02-03 06:50] VITALS: O2SAT 94
[2021-02-03] MEDS: Calcium Carbonate 500 MG Tablet PO (08:29)
[2021-02-03 09:15] VITALS: BP 105/63; PULSE 108; RESP 18; TEMP 36.5; O2SAT 94
[2021-02-03 09:16] VITALS: PULSE 108; O2SAT 94
== END 2021-02-03 09:56 | disposition home health service (06) | DRG 193 ==
PROVIDERS: Admitting Provider Family Medicine Geriatric Medicine; PCP Family Medicine; Visit Provider Family Medicine Geriatric Medicine
DX: J10.1 Influenza due to other identified influenza virus with other respiratory manifestations (principal); I21.4 Non-ST elevation (NSTEMI) myocardial infarction; J96.01 Acute respiratory failure with hypoxia; J44.1 Chronic obstructive pulmonary disease with (acute) exacerbation; I10 Essential (primary) hypertension; E03.9 Hypothyroidism, unspecified; Z23 Encounter for immunization; R91.1 Solitary pulmonary nodule; K21.9 Gastro-esophageal reflux disease without esophagitis; I25.10 Atherosclerotic heart disease of native coronary artery without angina pectoris; F32.A Depression, unspecified; F17.210 Nicotine dependence, cigarettes, uncomplicated; Z79.899 Other long term (current) drug therapy; Z79.51 Long term (current) use of inhaled steroids
CPT/HCPCS: 0064A; 36415; 80048; 85025; 87635; 91301; 94640; 97110; 97116; 97162; 97166; 97530; 97535; 97802; 99406; U0003

== ENCOUNTER 2021-03-29 10:28 | Outpatient (CLI) | payer MEDICARE, BC, SELFPAY ==
--- NOTE | 2021-03-30 10:27 | PFT ---
INTRODUCTION: The patient is a 66-year-old female that presents for pulmonary function studies secondary to a diagnosis of dyspnea. Respiratory therapy reported good patient effort. Bronchodilators were used during testing. INTERPRETATION: Forced expiration spirometry demonstrates the presence of a severe large airways obstructive ventilatory defect. There was a significant response to aerosolized bronchodilators. Spirograms are of good quality but do not plateau indicating slow emptying of the lungs. Body plethysmography was performed and revealed a decreased TLC to 3.98 L, 76% of predicted, indicative of a mild restrictive ventilatory impairment. Diffusing capacity by single breath CO is reduced at 58% of predicted. IMPRESSION: Partially reversible severe mixed ventilatory defect with symmetric reduction in diffusing capacity.
== END 2021-03-29 23:59 | disposition home or self-care (01) ==
PROVIDERS: PCP Family Medicine; Referring Provider Internal Medicine Critical Care Medicine; Visit Provider Internal Medicine Critical Care Medicine
DX: R06.00 Dyspnea, unspecified (principal)
CPT/HCPCS: 94060; 94726; 94729

== ENCOUNTER → 2021-04-14 12:21 | Outpatient (CLI) | payer MEDICARE, BC, SELFPAY ==
--- NOTE | 2021-04-14 12:24 | CT_ITS ---
EXAM: CT Chest Without Intravenous Contrast CLINICAL INDICATION: 66 years old, Female; LLL nodule TECHNIQUE: Helically acquired images were obtained of the chest without intravenous contrast. This CT exam was performed using one or more of the following dose reduction techniques: automated exposure control, adjustment of the mA and/or kV according to patient size, and/or use of iterative reconstruction technique. This report was created using [employer] report generation technology. COMPARISON: None. FINDINGS: Lungs and pleural spaces: Centrilobular emphysema. No mass. No pleural effusion or thickening. No pneumothorax. Heart: Trace pericardial effusion. Heart size is normal. No significant coronary artery calcifications. Mediastinum: Unremarkable. No mediastinal or hilar adenopathy. Esophagus is unremarkable. No hiatal hernia. Thyroid: Unremarkable. No thyroid lesions. Bones/joints: Unremarkable. No suspicious lytic or blastic abnormality. Vasculature: Unremarkable. Thoracic aorta is non-dilated. CT/Chest without Contrast IMPRESSION: Centrilobular emphysema. Electronically Signed: Akash Reno MD at 4:50 EST ,
== END ==
PROVIDERS: PCP Family Medicine; Referring Provider Internal Medicine Critical Care Medicine; Visit Provider Internal Medicine Critical Care Medicine
DX: R91.1 Solitary pulmonary nodule (principal)
CPT/HCPCS: 71250

== ENCOUNTER → 2021-06-07 | Outpatient (CLI) | payer MEDICARE, BC, SELFPAY ==
[2021-06-07 11:15] VITALS: PULSE 72; PULSE 76; PULSE 82; PULSE 86; PULSE 87; PULSE 91; PULSE 95; PULSE 98; O2SAT 88; O2SAT 90; O2SAT 91; O2SAT 92; O2SAT 94; O2SAT 95; O2SAT 97
--- NOTE | 2021-06-07 11:29 | CPS ---
Pt desated at minute 4 to 88%. Pt placed on 1 lpm. Remainder of walk was performed on 1 lpm.
--- NOTE | 2021-06-08 07:06 | WT_ITS ---
PSN 6 Minute Walk Test 6 Minute Walk Test 6 Minute Walk Test: 6 Minute Walk Test PSN:6-Minute Walk Test Start: 06/07/21 11:25 Freq: Status: Active Protocol: [id number] Document 06/07/21 11:15 [facility] (Rec: 06/07/21 11:31 [facility] [id number]) 6 Minute Walk Test Date Performed 06/07/21 Time Performed 11:15 Height 5 ft 6 in Weight: 108.862 kg Weight in Pounds 240.[address]: Dr Maza Assistive device used: Walker Pre-test Oxygen Delivery Method Room Air Pulse Ox (%) 95 Pulse Rate (60-100 beats/min) 72 Dyspnea Radha Scale (0-10) 0 Exertion Radha Scale (6-20) 6 1st minute Oxygen Delivery Method Room Air Pulse Ox (%) 92 Pulse Rate (60-100 beats/min) 76 2nd minute Oxygen Delivery Method Room Air Pulse Ox (%) 90 Pulse Rate (60-100 beats/min) 86 3rd minute Oxygen Delivery Method Room Air Pulse Ox (%) 91 Pulse Rate (60-100 beats/min) 87 4th minute Oxygen Delivery Method Room Air Pulse Ox (%) 88 Pulse Rate (60-100 beats/min) 91 Dyspnea Radha Scale (0-10) 3 Reported Symptoms Increased Work of Breathing 5th minute Oxygen Flow Rate (L/min) (L/min) 1 Oxygen Delivery Method Nasal Cannula Pulse Ox (%) 97 Pulse Rate (60-100 beats/min) 98 6th minute Oxygen Flow Rate (L/min) (L/min) 1 Oxygen Delivery Method Nasal Cannula Pulse Ox (%) 97 Pulse Rate (60-100 beats/min) 95 Dyspnea Radha Scale (0-10) 3 Exertion Radha Scale (6-20) 13 Reported Symptoms Increased Work of Breathing Post-test Oxygen Delivery Method Room Air Pulse Ox (%) 94 Pulse Rate (60-100 beats/min) 82 Full Laps Walked 8 Partial Lap, Number of Tiles Walked 25 Total Distance Walked (ft) 497 06/07/21 11:29 Cardiopulmonary Services by Ginny Cintron Pt desated at minute 4 to 88%. Pt placed on 1 lpm. Remainder of walk was performed on 1 lpm. Initialized on 06/07/21 11:29 - END OF NOTE Interpretation Interpretation: The patient ambulated 497 feet over the course of 6 minutes beginning on room air with the use of a walker. Pretesting oxygen saturation was noted to be 95% on room air. With ambulation, the patient desaturated to 88% at minute 4 of testing. 1 L/min of supplemental oxygen was applied and the patient was able to complete the remainder of the test while maintaining appropriate oxygen saturations. Recommendations Recommendations: 1 to 2 L/min of supplemental oxygen should be utilized with exertion.
== END | disposition home or self-care (01) ==
LOC: PSN 11:00
PROVIDERS: PCP Family Medicine; Referring Provider Internal Medicine Critical Care Medicine; Visit Provider Internal Medicine Critical Care Medicine
DX: R06.00 Dyspnea, unspecified (principal)
CPT/HCPCS: 94618

== ENCOUNTER → 2022-06-06 | Outpatient (CLI) | payer MEDICARE, BC, SELFPAY ==
--- NOTE | 2022-06-06 15:29 | CT_ITS ---
STUDY: LOW DOSE CT LUNG CANCER SCREENING REASON FOR EXAM: Female, 67 years old. Nicotine dependence, smoker. RADIATION DOSAGE (If Supplied By Facility): CTDIvol = ( 3.18 ) mGy, DLP = ( 104.83 ) mGycm TECHNIQUE: No contrast was administered. Low dose technique was utilized (average mAS-38 and kVp 120). 1.25 mm axial source images with a slice interval of 1.25-mm were reconstructed in lung windows. 2.5 mm axial source images with a slice interval of 2.5-mm were reconstructed in lung windows. 5.0 mm axial source images with a slice interval of 5.0-mm were reconstructed in soft tissue windows. COMPARISON: April 14, 2021 CT chest. January 16, 2021 CTA chest. April 11, 2017 CTA and chest. FINDINGS: Extensive centrilobular emphysematous changes. Mild paraseptal emphysematous changes. No focal airspace consolidation. No pleural effusion or pneumothorax. Small fat-containing right posterior diaphragmatic hernia unchanged. No pulmonary nodules. No mediastinal or hilar adenopathy. Benign appearing axillary lymph nodes. Upper normal caliber main pulmonary arteries, stable. Normal caliber thoracic aorta. Mild atherosclerotic calcification. Normal heart size. There is coronary artery calcification, predominantly involving the left anterior descending artery. No pericardial effusion. Trachea and esophagus are unremarkable. Osteopenia. Stable degenerative changes of the thoracic spine. No acute osseous injury. No acute abnormality in the visualized upper abdomen. CT/Low Dose CT Lung Screening IMPRESSION: No acute findings. Centrilobular emphysema. Lung RADS-2. Recommend continued annual low-dose screening chest CT. IMPORTANT NOTES FOR USE: ACR Lung-RADS Version 1.1 Assessment Categories Release Date: 2018 Category: Coded 0-4 bases on nodule(s) with highest degree of suspicion. Negative screen is defined as categories 1 and 2; a positive screen is defined as categories 3 and 4. Category 3 and 4A nodules that are unchanged on interval CT should be coded as category 2, and individuals returned to screening in 12 months. Category 4X: Category 3 or 4 nodules with additional imaging findings that increase the suspicion of lung cancer, such as spiculation, GGN that doubles in size in 1 year, enlarged lymph notes, etc. Category Modifiers: S (significant finding unrelated to lung cancer) Electronically Signed: Heraclio Husain MD at 22:17 EDT ,
== END | disposition home or self-care (01) ==
LOC: CT 15:27
PROVIDERS: Referring Provider Nurse Practitioner Acute Care; Visit Provider Nurse Practitioner Acute Care
DX: Z12.2 Encounter for screening for malignant neoplasm of respiratory organs (principal); F17.210 Nicotine dependence, cigarettes, uncomplicated
CPT/HCPCS: 71271

== ENCOUNTER 2022-12-30 12:33 | Emergency (ER) | payer MEDICARE, BC, SELFPAY ==
[2022-12-30] VITALS (7 sets, daily range): BP systolic 111–133; BP diastolic 58–101; PULSE 60–78; RESP 12–18; TEMP 35.7–37; O2SAT 97–100; BMI 36.9
--- NOTE | 2022-12-30 12:57 | EKG12_ITS ---
Test Reason : SOB Blood Pressure : / mmHG Vent. Rate : 074 BPM Atrial Rate : 074 BPM P-R Int : 146 ms QRS Dur : 090 ms QT Int : 380 ms P-R-T Axes : 071 061 040 degrees QTc Int : 421 ms Normal sinus rhythm Nonspecific ST abnormality Abnormal ECG Confirmed by BARBIE FERNANDES, PATRICIA ([id number]), writer editor SARA SOLARES ([id number]) on 01/01/2023 12:06:09 PM Referred By: Confirmed By:PATRICIA VALENTIN MD
--- NOTE | 2022-12-30 12:57 | CT_ITS ---
STUDY: CTA CHEST REASON FOR EXAM: Female, 67 years old. Pulmonary embolism RADIATION DOSAGE (If Supplied By Facility): CTDIvol = ( 17.35 ) mGy, DLP = ( 567.64 ) mGycm TECHNIQUE: The examination was performed with the intravenous administration of IV 100mL Isovue-370. Post-processing of the angiographic images was performed, with multiplanar reformation and 3D reconstruction. Individualized dose optimization techniques were used for this CT. COMPARISON: June 06, 2022 FINDINGS: Normal enhancement of the main pulmonary artery and right and left pulmonary arteries. There is limited enhancement of the bilateral peripheral pulmonary arteries. There is no demonstrated pulmonary embolism. Normal thoracic aorta and visualized great vessels. There is no demonstrated aortic dissection. There are calcifications of the coronary arteries. Normal mediastinum. Normal hilar regions. Normal visualized trachea and bronchi. The lungs are well expanded. There is emphysema of the lungs. There are mild fibrotic densities and regions of bronchiectasis. There is new 0.6 cm subpleural nodule in the right upper lobe, series 2 image 213. Normal pleura. Normal chest wall structures. There are degenerative changes of thoracic spine. Normal visualized upper abdomen. CT/CTA Chest W/WO Contrast IMPRESSION: CTA chest examination, without a demonstrated pulmonary embolism or arterial dissection. Emphysema. Right upper lobe nodule. Consider biopsy and/or short-term, 3-6 month, follow-up for further evaluation. Electronically Signed: Heri Garcia MD at 15:02 EST ,
--- NOTE | 2022-12-30 12:58 | EDS_ITS ---
HPI History of Present Illness Chief Complaint: Shortness of Breath Informant: patient Narrative Narrative: 67-year-old female with a history of COPD on home oxygen presenting to the emergency department with COVID-19. Patient states that she has been sick since Sunday and tested positive for COVID-19 yesterday. She states she had a telehealth visit this morning and the doctor who she spoke with said she should come to emergency for precautionary blood work imaging and EKG. When asked what type of symptoms she is having she tells me she does not know. So we begin the process of naming symptoms of COVID-19. She notes that she has had a headache since Sunday. She notes intermittent fevers. She notes rhinorrhea and a cough. She states the cough is not productive. She states that she is short of breath but that she is always short of breath. She typically wears 1 to 2 L of home oxygen which is what she has been requiring currently. She denies any chest pain. She states that she has diarrhea every time I go to the bathroom. When asked how often she is going to the bathroom she states whenever she feels like it. She tells me we are supposed to have received information from the telehealth visit. [facility] Medical History (Updated 12/30/22 @ 15:[address] Juan Carlos Rosado, ) Anal squamous cell carcinoma Anxiety and depression COPD (chronic obstructive pulmonary disease) Elevated troponin GERD (gastroesophageal reflux disease) Hypertension Hypothyroidism Nonobstructive atherosclerosis of coronary artery Rheumatoid arthritis Home Medications hydrocodone-acetaminophen 5-325mg 5mg-325mg 1 tab PO Q6H PRN PRN Pain 07/08/15 [History Last Taken 07/01/15] naproxen sodium 220 mg tablet (Aleve) 440 mg PO DAILY Pain 07/08/15 [History Last Taken 01/15/21 21:00] cetirizine 10 mg capsule (Zyrtec) 10 mg PO DAILY allergies 04/11/17 [History Last Taken 12/29/22] levothyroxine 25 mcg tablet 75 mcg PO DAILY thyroid 04/11/17 [History Last Taken 12/29/22] pantoprazole 40 mg tablet,delayed release 40 mg PO DAILY reflux 04/23/19 [History Last Taken 12/29/22] sertraline 100 mg tablet 200 mg PO DAILY anxiety and depression 01/18/21 [History Last Taken 12/29/22] albuterol sulfate 90 mcg/actuation aerosol inhaler (Ventolin HFA) 2 puff inhalation Q4H PRN PRN Shortness of breath, wheezing ##3 05/26/22 [Rx Last Taken 12/30/22] fluticasone fur. 200 mcg-umeclid 62.5 mcg-vilant 25 mcg inhalat.powder (Trelegy Ellipta) 1 inh inhalation DAILY #3 ea 10/10/22 [Rx Last Taken 12/29/22] irbesartan 300 mg tablet 300 mg PO DAILY 12/30/22 [History Last Taken 12/29/22] Allergy/AdvReac Type Severity Reaction Status Date / Time cefadroxil hydrate Allergy Itching Verified 12/30/22 12:35 [From Marly] Surgical History H/O section H/O hysterectomy with oophorectomy History of left heart catheterization (01/17/21) Hx of appendectomy Social History household members: none Smoking Status: Current every day smoker tobacco type: cigarettes Tobacco: How many years used: 48 alcohol intake: current alcohol intake frequency: holidays/special occasions only substance use type: does not use and marijuana ROS ROS ED Constitutional Constitutional ED: Reports chills and fever(s); Denies weight loss Eyes Eyes: Denies change in vision or diplopia ENT ENT ED: Reports rhinorrhea; Denies ear pain or sore throat Cardiovascular Cardiovascular: Denies chest pain, orthopnea, palpitations or racing heartbeat Respiratory/Chest Respiratory/Chest: Reports cough and dyspnea on exertion; Denies dyspnea or orthopnea Gastrointestinal Gastrointestinal: Reports diarrhea; Denies abdominal pain, nausea or vomiting Genitourinary Genitourinary ED: Denies dysuria, hematuria or urinary frequency Musculoskeletal Musculoskeletal: Denies arthralgias or myalgias Integumentary Denies abscess or rash Neurologic Neurologic: Reports headache(s); Denies paresthesias or weakness Psychiatric Psychiatric: Denies anxiety, depression, suicidal ideation or suicidal thoughts Endocrine Endocrinology: Denies polydipsia, polyphagia or polyuria Allergic/Immunologic Allergic/Immunologic ED: Denies mouth swelling, tongue swelling or urticaria EXAM Physical Exam Const Vital Signs: 12/30/22 12:35 12/30/22 12:38 12/30/22 12:58 Temperature 98.6 F 96.3 F L Temperature Source Oral Temporal Pulse Rate 78 78 Respiratory Rate 18 17 Respiratory Effort Short of Breath Labored Respiratory Depth Normal Respiratory Pattern Normal Blood Pressure 133/101 H 119/68 Blood Pressure Mean 111 85 Pulse Ox 97 98 Oxygen Delivery Method Nasal Cannula Nasal Cannula Nasal Cannula Oxygen Flow Rate (L/min) 2 2 2 12/30/22 13:38 12/30/22 14:00 12/30/22 15:00 Temperature 96.3 F L 96.3 F L 96.4 F L Temperature Source Temporal Temporal Temporal Pulse Rate 67 65 65 Respiratory Rate 12 14 16 Respiratory Effort Respiratory Depth Respiratory Pattern Blood Pressure 133/73 H 125/70 H 111/58 L Blood Pressure Mean 93 88 75 Pulse Ox 99 98 100 Oxygen Delivery Method Nasal Cannula Nasal Cannula Nasal Cannula Oxygen Flow Rate (L/min) 2 2 2 Positive well nourished and well developed General Appearance ED: well developed HEENT Reports normocephalic, head/scalp atraumatic and moist mucous membranes HEENT Narrative: Clear rhinorrhea Eyes PERRL and EOMs intact bilaterally Neck no lymphadenopathy, supple and no JVD Resp normal respiratory effort and clear to auscultation bilaterally Resp Narrative: Dry cough Cardio regular rate, regular rhythm and no murmurs GI normal to inspection, nondistended, normoactive bowel sounds and non-tender Palpation: soft Back/Spine no CVA tenderness and normal ROM Extremity normal to inspection General Extremety ED: Negative for edema General Extremity: Negative for edema Neuro oriented x3 and CN's II-XII intact bilaterally Sensorium / Orientation: alert Motor Exam: strength 5/5 throughout Psych mental status grossly normal Mood & Affect: Negative for depressed or tearful Skin no rashes or lesions noted and no wounds MDM MDM MDM Narrative Medical decision making narrative: Basic blood work showed a white count of 4.4 hemoglobin 12.4. Potassium 3.4 glucose 110 troponin 6. CTA of the chest is negative for pulmonary embolism or pneumonia. EKG is unchanged and the patient is at her baseline requirements of oxygen. Overall the patient clinically appears tired but well. She will be discharged home with continued supportive care. Return if worsening or concerns History & Record Review Discussion w/independent historian: Patient Additional record(s) reviewed:: Prior labs Lab Data Attestation: I reviewed the patient's lab results. Labs: Laboratory Results - last 24 hr 12/30/22 13:10 WBC 4.4 RBC 4.58 Hgb 12.4 Hct 39.2 MCV 85.6 MCH 27.1 MCHC 31.6 L RDW Std Deviation 46.6 H RDW Coeff of Kanika 14.9 H Plt Count 223 MPV 10.0 Immature Gran % (Auto) 0.200 Neut % (Auto) 67.6 Lymph % (Auto) 20.8 Churchill % (Auto) 8.9 Eos % (Auto) 2.3 Baso % (Auto) 0.2 Absolute Neuts (auto) 3.0 Absolute Lymphs (auto) 0.91 Nucleated RBC % 0 Sodium 138 Potassium 3.4 L Chloride 107 Carbon Dioxide 26.0 Anion Gap 5 BUN 21 H Creatinine 0.68 Estim Creat Clear Calc 48.45 Est GFR (MDRD) Af Amer 110 Est GFR (MDRD) Non-Af 91 BUN/Creatinine Ratio 30.7 H Glucose 110 H Calcium 8.5 Troponin I High Sens 6 Radiography Diagnostic Testing: Clinical Impression(s) from Imaging Studies Chest CTA 12/30/22 12:57 IMPRESSION: CTA chest examination, without a demonstrated pulmonary embolism or arterial dissection. Emphysema. Right upper lobe nodule. Consider biopsy and/or short-term, 3-6 month, follow-up for further evaluation. Electronically Signed: Heri Garcia MD at 15:02 EST Reading Location ID and State: [address] [place] [address] , Service support , EKG Initial EKG: Attestation: I personally reviewed and interpreted this EKG as follows: Comments: Normal sinus rhythm with a ventricular rate of 74. Prior: Unchanged Discharge Plan Triage Chief Complaint: Shortness of Breath Other Complaint: Diarrhea Headache ED Provider: Juan Carlos Rosado Dx/Rx/DC Orders Clinical Impression: COVID-19, Chronic hypoxic respiratory failure, Asthma-COPD overlap syndrome Instructions: Coronavirus Disease 2019 (COVID-19): Caring for Yourself or Others Prescriptions: No Action albuterol sulfate [Ventolin HFA] 90 mcg/actuation HFA aerosol inhaler 2 puff inhalation Q4H PRN PRN (Reason: Shortness of breath, wheezing) Qty: 3 3RF naproxen sodium [Aleve] 220 MG tablet 440 mg PO DAILY Patient Comments: PAIN hydrocodone-acetaminophen 1 TABLET tablet 1 tab PO Q6H PRN PRN (Reason: Pain) Patient Comments: PAIN levothyroxine 25 MCG tablet 75 mcg PO DAILY Zyrtec 10 MG capsule 10 mg PO DAILY pantoprazole 40 MG tablet 40 mg PO DAILY sertraline 100 mg tablet 200 mg PO DAILY Patient Comments: TAKE 2 TABLETS DAILY irbesartan 300 mg tablet 300 mg PO DAILY Patient Comments: take 1 tablet by mouth once daily Trelegy Ellipta 200-62.5-25 mcg blister with device 1 inh inhalation DAILY Qty: 3 3RF Primary Care Provider: Blade Tan Referrals: Blade Tan DO [Primary Care Provider] - As Needed Disposition Disposition: Home, Self Care
[2022-12-30] MEDS: Ketorolac 15 MG/ML Vial IV (13:17)
[2022-12-30] MEDS: 0.9% Normal Saline (1000mL) 1,000 ML 1000 ML IV (13:18)
[2022-12-30 13:26] LABS: Absolute Lymphocyte Count 0.91 X10^3/uL (0.83-4.51); Basophil# 0.01 X10^3/uL; Basophil% 0.2 % (0-1); Eosinophils% 2.3 % (0-5); Hematocrit 39.2 % (37-47); Hemoglobin 12.4 g/dL (12.0-15.0); Lymphocyte # 0.91 X10^3/ul (0.83-4.51); Lymphocyte % 20.8 % (19-41); Mean Corp Hgb Conc 31.6 g/dL (32-36); Mean Corpuscular Hgb 27.1 pg (27.0-32.0); Mean Corpuscular Volume 85.6 fL (81-99); Monocyte# 0.39 X10^3/uL; Monocyte% 8.9 % (0-10); NRBC Flagged by Analyzer 0 % (0-5); Neutrophil # 2.96 X10^3/uL (2.7-7.7); Neutrophil % 67.6 % (47-70); Platelet Count 223 K/mm3 (150-450); RBC Distribution Width CV 14.9 % (11.6-14.6); RBC Distribution Width SD 46.6 fl (35.1-43.9); Red Blood Count 4.58 M/mm3 (4.2-5.4); White Blood Count 4.4 K/mm3 (4.4-11.0)
[2022-12-30 13:40] LABS: Anion Gap 5 (5-15); BUN 21 mg/dL (7-18); BUN/Creat Ratio 30.7 RATIO (10-20); Calcium,Total 8.5 mg/dL (8.5-10.1); Chloride 107 mmol/L (98-107); Creatinine, Serum 0.68 mg/dL (0.55-1.02); EST Glomerular Filtration Rate 91 mL/min (>60); Est Glom Filt Rate - Afr Amer 110 mL/min (>60); Estimated Creatinine Clearance 48.45 ml/min; Glucose 110 mg/dL (74-106); Potassium 3.4 mmol/L (3.5-5.1); Sodium Level 138 mmol/L (136-145); Troponin-I HS 6 pg/mL (3.0-54.0)
== END 2022-12-30 15:43 | disposition home or self-care (01) ==
PROVIDERS: Emergency Provider Emergency Medicine; Visit Provider Emergency Medicine
DX: U07.1 COVID-19 (principal); J44.9 Chronic obstructive pulmonary disease, unspecified; J96.11 Chronic respiratory failure with hypoxia; F17.210 Nicotine dependence, cigarettes, uncomplicated; I25.10 Atherosclerotic heart disease of native coronary artery without angina pectoris; I10 Essential (primary) hypertension; E03.9 Hypothyroidism, unspecified; F41.9 Anxiety disorder, unspecified; F32.A Depression, unspecified; Z79.899 Other long term (current) drug therapy; Z99.81 Dependence on supplemental oxygen
CPT/HCPCS: 71275; 80048; 84484; 85025; 93005; 96361; 96374; 99285; J7030; Q9967; A4216

== ENCOUNTER → 2022-12-30 | Outpatient (CLI) | payer MEDICARE, BC, SELFPAY | END | disposition home or self-care (01) | LOC: LAB.FUTURE 09:51 | PROVIDERS: Referring Provider Student in an Organized Health Care Education/Training Program; Visit Provider Student in an Organized Health Care Education/Training Program | DX: U07.1 COVID-19 (principal); R06.02 Shortness of breath ==

== ENCOUNTER → 2023-03-28 | Outpatient (CLI) | payer MEDICARE, BC, SELFPAY ==
[2023-03-28 16:17] LABS: ALB/GLOB Ratio 0.8 RATIO (0.9-2.4); AST(SGOT) 14 U/L (15-37); Alanine Aminotransfer ALT/SGPT 12 U/L (13-56); Albumin, Serum 3.4 g/dL (3.2-5.0); Alkaline Phosphatase 151 U/L (45-117); Anion Gap 5 (5-15); BUN 20 mg/dL (7-18); BUN/Creat Ratio 27.5 RATIO (10-20); Calcium,Total 8.8 mg/dL (8.5-10.1); Chloride 105 mmol/L (98-107); Creatinine, Serum 0.73 mg/dL (0.55-1.02); EST Glomerular Filtration Rate 84 mL/min (>60); Est Glom Filt Rate - Afr Amer 102 mL/min (>60); Globulin 4.3 g/dL (2.2-4.2); Glucose 89 mg/dL (74-106); Potassium 3.9 mmol/L (3.5-5.1); Protein, Total 7.7 g/dL (6.4-8.2); Sodium Level 138 mmol/L (136-145)
--- OUTSIDE RECORDS SUMMARY | 2023-03-28 18:45 | XMS RPT_ITS | CCD ---
Author Name Unknown Address [facility] [facility] [address] [place] [address] Organization [facility] Care Team Providers Care Fruit Buyer Name Role Phone AYLA SIMPSON MD Primary Care Physician [phone] SHRUTHI BOND DO Primary Care Physician SHRUTHI BOND DO Primary Care Unavailable SHRUTHI BOND DO Attending Unavailable SHRUTHI BOND DO Primary Care Unavailable SHRUTHI BOND DO Attending Unavailable ESHA HAIDER MD Attending Unavailable SHRUTHI BOND DO Primary Care Unavailable SHRUTHI BOND DO Primary Care Unavailable DR PATRICIA STEVENS MD Attending UnavailSHRUTHI Parker DO Primary Care Unavailable SHRUTHI BOND DO Attending Unavailable SHRUTHI BOND DO Primary Care Unavailable SHRUTHI BOND DO Attending Unavailable SHRUTHI BOND DO Primary Care Unavailable ESHA HAIDER MD Attending Unavailable SHRUTHI BOND DO Primary Care Unavailable SHRUTHI BOND DO Attending Unavailable LUNA SANTO Attending Un available SHRUTHI BOND DO Primary Care Unavailable Allergies Allergy Classification Reported Allergen(s) Allergy Type Date of Onset Reaction(s) Facility (8 sources) Cefadroxil; Translations: [cefadroxil] Drug Allergy swelling, [facility] Work Phone: Medications Current Medications Medication Drug Class(es) Dates Sig (Normalized) Sig (Original) acetaminophen 325 mg / HYDROcodone bitartrate 5 mg oral tablet (10 sources) Opioid Agonist Start: 03-19-2023 End: 04-18-2023 take 1 tablet by mouth every six hours [place] 325- 5 mg oral tablet Dose = 1 tab(s), Oral, q6hr, Goal is #8 per month or less, # 10 tab(s), 0 Refill(s), Pharmacy: [id number], Right hip pain, 166, cm, 02/20/23 9:34:00 EST, Height, 99.9, kg, 02/20/23 9:34:00 EST, Dosing Weight Start Date: 03/19/23 Stop Date: 04/18/23 Status: Ordered Completed/Discontinued Medications Medication Drug Class(es) Dates Sig (Normalized) Sig (Original) alendronic acid 70 mg oral tablet (2 sources) Bisphosphonate Start: 06-17-2020 take 6-8 [oz_av] by mouth once daily Fosamax 70 mg oral tablet Dose : 70 mg = 1 tab(s), Oral, qWeek, with 6-8 oz plain water, at least 30 minutes before first food, beverage, or medication of the day, # 13 tab(s), 3 Refill(s), Pharmacy: [facility], 166, cm, 03/01/20 14:54:00 EST, Height, kg, 05/31... Start Date: 06/17/20 Status: Ordered conjugated estrogens 0.625 mg/g vaginal cream with applicator (1 source) Start: 09-06-2020 conjugated estrogens 0.625 mg/g vaginal cream with applicator See Instructions, Apply pea-sized dose of cream into the vagina twice weekly, # 30 gram(s), 3 Refill(s), Pharmacy: [facility], 166, cm, 09/06/20 14:07:00 EDT, Height, kg, 09/06/20 14:15:00 EDT, Dosing Weight Start Date: 09/06/20 Status: Ordered estrogens, conjugated ([facility] living) 0.625 mg/ml vaginal cream (1 source) Estrogen Start: 09-06-2020 conjugated estrogens 0.625 mg/g vaginal cream with applicator See Instructions, Apply pea-sized dose of cream into the vagina twice weekly, # 30 gram(s), 3 Refill(s), Pharmacy: [facility], 166, cm, 09/06/20 14:07:00 EDT, Height, kg, 09/06/20 14:15:00 EDT, Dosing Weight Start Date: 09/06/20 Status: Ordered Problems Active Problems Problem Classification Problem Date Documented Da te Episodic/Chronic Cancer of rectum and anus (4 sources) History of malignant neoplasm of anus; Translations: [Personal history of other malignant neoplasm of rectum, rectosigmoid junction, and anus] Onset: 4 02-09-2023 Episodic Chronic obstructive pulmonary disease and bronchiectasis (10 sources) Chronic obstructive lung disease; Translations: [Chronic obstructive pulmonary disease, unspecified] Onset: 4 05-06-2014 Chronic Conditions associated with dizziness or vertigo (2 sources) Vertigo 06-19-2022 Episodic Esophageal disorders (6 sources) Gastroesophageal reflux disease 09-20-2021 Chronic Essential hypertension (6 sources) Essential hypertension 09-20-2021 Chronic Genitourinary symptoms and ill-defined conditions (8 sources) Urinary incontinence 05-06-2014 Chronic Genitourinary symptoms and ill-defined conditions (6 sources) Increased frequency of urination; Translations: [Frequency of micturition] Onset: 3 02-09-2023 Episodic Mood disorders (8 sources) Depressive disorder; Translations: [Recurrent major depression] 07-02-2020 Chronic Nutritional deficiencies (6 sources) Vitamin D deficiency 10-03-2021 Chronic Other and unspecified benign neoplasm (8 sources) Polyp of colon 05-06-2014 Episodic Other bone disease and musculoskeletal deformities (6 sources) Osteopenia 09-20-2021 Episodic Other ear and sense organ disorders (8 sources) Hearing loss 05-06-2014 Chronic Other gastrointestinal disorders (2 sources) Heartburn 05-06-2014 Episodic Other hereditary and degenerative nervous system conditions (2 sources) Restless legs 12-08-2022 Chronic Other infections; including parasitic (2 sources) Personal history of other infectious and parasitic diseases; Translations: [Personal history of other infectious and parasitic diseases] Onset: 4 Episodic Other lower respiratory disease (8 sources) Snoring 05-07-2014 Episodic Other lower respiratory disease (10 sources) Dyspnea on exertion 05-06-2014 Episodic Other lower respiratory disease (1 source) Cough 10-25-2021 Episodic Other non-traumatic joint disorders (6 sources) Hip pain 12-20-2021 Episodic Other nutritional; endocrine; and metabolic disorders (2 sources) Obesity 05-06-2014 Chronic Other screening for suspected conditions (not mental disorders or infectious disease) (9 sources) Blood chemistry abnormal; Translations: [Other specified abnormal findings of blood chemistry] Onset: 4 Episodic Prolapse of female genital organs (4 sources) Uterovaginal prolapse; Translations: [Uterovaginal prolapse, unspecified] Onset: 4 02-09-2023 Chronic Residual codes; unclassified (6 sources) Insomnia 10-25-2021 Episodic Respiratory failure; insufficiency; arrest (adult) (6 sources) Patient on oxygen 09-20-2021 Chronic Rheumatoid arthritis and related disease (16 sources) Rheumatoid arthritis; Translations: [Subcutaneous rheumatoid nodule] 05-06-2014 Chronic Thyroid disorders (7 sources) Hypothyroidism; Translations: [Hypothyroidism, unspecified] Chronic Unclassified (8 sources) Eye glasses, device (physical object) 05-06-2014 Unclassified (2 sources) Osteopenia 05-06-2014 Unclassified (6 sources) Long-term current use of proton pump inhibitor therapy 09-20-2021 Unclassified (6 sources) Prescribed medication regimen behavior finding 09-20-2021 Unclassified (2 sources) Sebaceous cyst of skin 06-19-2022 Viral infection (2 sources) Disease caused by 2019-nCoV 12-30-2022 Past or Other Problems Problem Classification Problem Date Documented Da te Episodic/Chronic Mycoses (2 sources) Tinea cruris; Translations: [Tinea cruris] Onset: 05-05-2022 Episodic Other inflammatory condition of skin (2 sources) Anogenital pruritus, unspecified; Translations: [Anogenital pruritus, unspecified] Onset: 05-01-2022 Episodic Results Test Name Value Interpretation Reference Range Facil ity Vital Signs Date Time Vital Sign Value Performing Clinician Faci lity 03-26-2023 10:18-0500 Diastolic Blood Pressure Non-Invasive 64 mm[Hg] DR PATRICIA STEVENS MD [facility] 03-26-2023 10:18-0500 Heart rate 87 /min DR PATRICIA STEVENS MD [facility] 03-26-2023 10:18-0500 Respiratory rate 23 /min DR PATRICIA STEVENS MD [facility] 03-26-2023 10:18-0500 Systolic Blood Pressure Non-Invasive 122 mm[Hg] DR PATRICIA STEVENS MD [facility] 03-26-2023 10:16-0500 Diastolic Blood Pressure Non-Invasive 70 mm[Hg] DR PATRICIA STEVENS MD [facility] 03-26-2023 10:16-0500 Heart rate 80 /min DR PATRICIA STEVENS MD [facility] 03-26-2023 10:16-0500 Respiratory rate 21 /min DR PATRICIA STEVENS MD [facility] 03-26-2023 10:16-0500 Systolic Blood Pressure Non-Invasive 117 mm[Hg] DR PATRICIA STEVENS MD [facility] 03-26-2023 10:11-0500 Diastolic Blood Pressure Non-Invasive 76 mm[Hg] DR PATRICIA STEVENS MD [facility] 03-26-2023 10:11-0500 Heart rate 81 /min DR PATRICIA STEVENS MD [facility] 03-26-2023 10:11-0500 Respiratory rate 23 /min DR PATRICIA STEVENS MD [facility] 03-26-2023 10:11-0500 Systolic Blood Pressure Non-Invasive 107 mm[Hg] DR PATRICIA STEVENS MD [facility] 03-26-2023 10:08-0500 Body temperature 98.06 [degF] DR PATRICIA STEVENS MD [facility] 03-26-2023 10:05-0500 Respiratory Rate - Anes 33 br/min DR PATRICIA STEVENS MD [facility] 03-26-2023 10:00-0500 Respiratory Rate - Anes 40 br/min DR PATRICIA STEVENS MD [facility] 03-26-2023 09:55-0500 Respiratory Rate - Anes 9 br/min DR PATRICIA STEVENS MD [facility] 03-26-2023 09:48-0500 Body height 165.[address] PATRICIA STEVENS MD [facility] 03-26-2023 09:48-0500 Body temperature 98.06 [degF] DR PATRICIA STEVENS MD [facility] 03-26-2023 09:48-0500 Body weight 99.[address] PATRICIA STEVENS MD [facility] 03-26-2023 09:48-0500 Heart rate 71 /min DR PATRICIA STEVENS MD [facility] Encounters Encounter Date Encounter Type Care Provider Facility Start: 03-28-2023 ambulatory SHRUTHI BOND DO Faci lity:B Start: 03-27-2023 ambulatory ESHA HAIDER MD Facilit y:B Start: 03-26-2023 End: 03-26-2023 ambulatory SHRUTHI Ann Marie BOND DO Facility:B Start: 03-26-2023 End: 03-26-[address] PATRICIA STEVENS MD [facility] Start: 02-20-2023 End: 02-25-2023 ambulatory SHRUTHI BOND DO Facility:B Start: 02-20-2023 End: 02-24-2023 Outreach Lab ESHA HAIDER MD [facility] Start: 12-07-2022 ambulatory SHRUTHI BOND DO Faci lity:B Start: 06-15-2022 End: 06-16-2022 ambulatory SHRUTHI BOND DO Facility:B Start: 06-15-2022 End: 06-15-2022 Patient encounter procedure SHRUTHI BOND DO [facility] Start: 05-05-2022 End: 05-10-2022 ambulatory SHRUTHI Ann Marie BOND DO Facility:B Start: 05-05-2022 End: 05-09-2022 Outreach Lab SHRUTHI BOND DO [facility] Start: 05-01-2022 End: 05-06-2022 ambulatory LUNA COLMENARES NURSING CONSULTANT-GRAPHIC PRE PRESS TRADES WORKER Facility:B Start: 05-01-2022 End: 05-02-2022 ambulatory SHRUTHI Ann Marie BOND DO Facility:B Start: 05-01-2022 End: 05-05-2022 Outreach Lab LUNA COLMENARES NURSING CONSULTANT-GRAPHIC PRE PRESS TRADES WORKER [facility] Start: 05-01-2022 End: 05-01-2022 Patient encounter procedure SHRUTHI BOND DO [facility] Start: 05-01-2022 End: 05-01-2022 Well adult monitoring check done SHRUTHI BOND DO [facility] Start: 05-23-2021 End: 05-23-2021 Patient encounter procedure AYLA SIMPSON MD [facility] Start: 01-13-2021 End: 01-13-2021 Patient encounter procedure JESENIA RUBIN NURSING CONSULTANT-GRAPHIC PRE PRESS TRADES WORKER [facility] Procedures Date Procedure Procedure Detail Performing Clinician Start: 05-06-2014 Colonoscopy JESENIA RUBIN NURSING CONSULTANT-GRAPHIC PRE PRESS TRADES WORKER Start: 02-05-1993 H/O: tubal ligation GAGE RUBIN NURSING CONSULTANT-GRAPHIC PRE PRESS TRADES WORKER Start: 02-05-1985 section JESENIA TAY NURSING CONSULTANT-GRAPHIC PRE PRESS TRADES WORKER Start: 02-05-1959 History of appendectomy JESENIA RUBIN NURSING CONSULTANT-GRAPHIC PRE PRESS TRADES WORKER Start: 02-05-1958 Tonsillectomy and adenoidectomy JESENIA RUBIN NURSING CONSULTANT-GRAPHIC PRE PRESS TRADES WORKER Entire elbow region (body structure) JESENIA RUBIN NURSING CONSULTANT-GRAPHIC PRE PRESS TRADES WORKER Immunizations Immunization Date Immunization Notes Care Provider [facility] 12-20-2021 influenza, high dose seasonal, preservative-free SHRUTHI BOND DO [facility] 09-20-2021 COVID-19, mRNA, LNP- S, PF, 100 mcg or 50 mcg dose; Translations: [Moderna COVID-19 Vaccine] SHRUTHI Picolight DO [facility] 09-20-2021 pneumococcal polysaccharide vaccine, 23 valent; Translations: [Pneumovax 23] SHRUTHI Picolight DO [facility] 01-25-2021 SARS-CoV-2 (COVID-19 ) mRNA-1273 vaccine AYLA SIMPSON MD [facility] Payers Date Payer Category Payer Medicare [id number] 2022 Unknown [id number] 1955 Unknown [id number] 2.16.8 [id number] 1955 Unknown [id number] 2.16.8 [id number] 1954 Unknown [id number] 2.16.8 [id number] 1954 Unknown [id number] 2.16.8 [id number] 1954 Unknown [id number] 2.16.8 [id number] 1954 Unknown [id number] 2.16.8 [id number] 1954 Unknown [id number] 2.16.8 [id number] 1954 Unknown [id number] 2.16.8 [id number] 1954 Unknown [id number] 2.16.8 [id number] Social History Date Type Detail Facility Start: 08-19-2018 End: 12-30-2022 Heavy tobacco smoker (finding) [facility] Sex Assigned At Female [facility] Functional Status Date Assessment Result Facility 03-26-2023 Functional Status Maintained [facility] Mental Status Date Assessment Result Facility 03-26-2023 Mental Status Oriented x 4 [facility] Clinical Notes 05-03-2022 to 03-28-2023 Note Date & Type Note Facility 03-28-2023 Note . MICRO - Microbiology PROCEDURE: Urine Culture [*1] SOURCE: Urine BODY SITE: COLLECTED DATE/TIME: 03/27/2023 16:24 EST RECEIVED DATE/TIME: 03/27/2023 19:06 EST START DATE/TIME: 03/27/2023 19:06 EST FREE TEXT SOURCE: PRELIMINARY REPORTS Preliminary Report [] Verified Date/Time/Personnel: 03/28/2023 09:28 EST No growth to date Performing Locations *1: This test was performed at: [facility], [address] [place] [address], [address] [place] [address] ([place]) [place] ADMISSION HISTORY AN D PHYSICIAL CHIEF COMPLAINT: HISTORY OF PRESENT ILLNESS: REVIEW OF SYSTEMS: ACTIVE PROBLEMS: (30) Arthritis, rheumatoid ([id number]) Colon polyps ([id number]) COPD - Chronic obstructive pulmonary disease (288929336) COVID-19 (0859743921) Elevated TSH (8342543163) Essential hypertension (51220779) GERD (gastroesophageal reflux disease) (779768465) Glasses (3921411636) Hard of hearing (993127319) History of anal cancer (1808660617) Hypothyroidism (60958132) Increased frequency of urination (913787229) Insomnia (197005088) 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 use (122464877) Long-term current use of proton pump inhibitor therapy (7493767573) Major depressive disorder, recurrent (783788708) On supplemental oxygen by nasal cannula (5386807801) Osteopenia (298623906) Prolapse, uterovaginal (63135303) Restless leg syndrome (39331641) Rheumatoid nodules ([id number]) Right hip pain (25446593) Sebaceous cyst (6793645675) Shortness of breath on exertion (807287169) Snores (4668006988) SOBOE (shortness of breath on exertion) ([id number]) Tobacco use (8713360959) Urinary incontinence (2796901668) Vertigo, some tinnitus and hearing loss (9388370525) Vitamin D deficiency (96768958) MEDICATIONS: Active Inpt Meds: None Active PRN Meds: None One Time Meds: None Active IV Meds: Lactated Ringers Infusion 1,000 mL (LR 1,000 mL) Start: 03/26/23 9:39:00 EST, Rate: 50 mL/hr, 03/26/23 9:39:00 EST ALLERGIES: (1) Duricef FAMILY HISTORY: SOCIAL HISTORY: PHYSICAL EXAM: VITALS: JqgsciQgbeVZVfkbhITYjI3XJX0RhnqFq(kg) 03/26 09:4836.7--875656 2.0L/m003/26 99.5 24 Hr Tmax: 36.7 at 03/26 09:48 36 Hr Tmax: 36.7 at 03/26 09:48 Vital Signs are the last 5 in the past 48 hours. Weights display the last 5 within 7 days. Initial Wt: 03/26 99.5 kg 219 lb Current Wt: 03/26 99.5 kg 219 lb GENERAL: HEENT: CARDIOVASCULAR: RESPIRATORY: ABDOMEN: EXREMETIES: NEUROLOGICAL: PSYCHIATRIC: LABS: No 36hr Lab Data DIAGNOSTICS: IMPRESSION: PLAN: History and Physical Update I have examined the patient; reviewed the H&P and there are no changes to the H&P unless noted below. Future Appointments Appointment Date:03/27/2023 01:30:00 PM Scheduled Provider:ESHA HAIDER MD Location: [place] Appointment Type: OV Appointment Date:04/02/2023 01:30:00 PM Scheduled Provider:SHRUTHI BOND DO Location:[facility] Appointment Type: OV Appointment Date:06/18/2023 03:00:00 PM Scheduled Provider:SHRUTHI BOND DO Location:[facility] Appointment Type:[facility] Medicare Future Scheduled Tests Laboratory* LDL-Cholesterol, Direct 06/08/23 * Ferritin 12/08/22 * Magnesium Level 06/08/23 * Urinalysis 02/20/23 * Thyroid Stimulating Hormone 06/08/23 * Free T4 06/08/23 * Urine Culture 02/20/23 * A1C Hemoglobin 06/08/23 * Complete Blood Count 06/08/23 * Lipid Profile 06/08/23 * Iron Studies 12/08/22 * Albumin/Creatinine Ratio, Random Urine 06/08/23 * Albumin/Creatinine Ratio, Random Urine 05/05/22 * Vitamin D Level 06/08/23 * Complete Metabolic Panel 06/08/23 Radiology* MA Mammo Screening Bilateral w/ Ronen 12/08/22 * BD Bone Density DEXA Axial Skeleton 12/08/22 * CT Thorax w/ Contrast 01/02/23 [facility] 02-19-2024 Hospital Discharge instructions Patient Education 03/26/2023 10:41:07 Colon Biopsy, Care After Colon Biopsy, Care After This sheet gives you information about how to care for yourself after your procedure. Your health care provider may also give you more specific instructions. If you have problems or questions, contact your health care provider. What can I expect after the procedure? After the procedure, it is common to have: A small amount of blood in your stool for 24 hours after the procedure. Some gas. Mild cramping or bloating in your abdomen. Follow these instructions at home: General instructions For the first 24 hours after the procedure: ?Do not drive or use machinery. ?Do not sign important documents. ?Do not drink alcohol. ?Do your regular daily activities at a slower pace than normal. ?Eat soft, yskj-ge-vebbck foods. ?Rest often. Take ypmj-psb-iairrzo or prescription medicines only as told by your health care provider. Keep all follow-up visits as told by your health care provider. This is important. Relieving cramping and bloating Try walking around when you have cramps or feel bloated. Put heat on your abdomen as told by your health care provider. Use a heat source that your health care provider recommends, such as a moist heat pack or a heating pad. ?Place a towel between your skin and the heat source. ?Leave the heat on for 20 30 minutes. ?Remove the heat if your skin turns bright red. This is especially important if you are unable to feel pain, heat, or cold. You may have a greater risk of getting burned. Eating and drinking Drink enough fluid to keep your urine pale yellow. Return to your normal diet as instructed by your health care provider. Avoid heavy or fried foods that are hard to digest. Avoid drinking alcohol for as long as told by your health care provider. Contact a health care provider if: You have blood in your stool 2 3 days after the procedure. Get help right away if: You have more than a small spotting of blood in your stool. You pass large blood clots in your stool. Your abdomen is swollen. You have nausea or vomiting. You have a fever. You have increasing abdominal pain that is not relieved with medicine. Summary After the procedure, it is common to have mild cramping and bloating in the abdomen. Do not drive for 24 hours after the procedure. Try walking around when you have cramps or feel bloated. This information is not intended to replace advice given to you by your health care provider. Make sure you discuss any questions you have with your health care provider. Document Released: 07/03/2017 Document Revised: 01/04/2018 Document Reviewed: 07/03/2017 [employer] Patient Education 2020 [employer]. 03/26/2023 10:40:45 Diverticulosis Diverticulosis Diverticulosis is a condition that develops when small pouches (diverticula) form in the wall of the large intestine (colon). The colon is where water is absorbed and stool is formed. The pouches form when the inside layer of the colon pushes through weak spots in the outer layers of the colon. Youmay have a few pouches or many of them. What are the causes? The cause of this condition is not known. What increases the risk? The following factors may make you more likely to develop this condition: Being older than age 60. Your risk for this condition increases with age. Diverticulosis is rare among people younger than age 30. By age 80, many people have it. Eating a low-fiber diet. Having frequent constipation. Being overweight. Not getting enough exercise. Smoking. Taking nhpo-ccz-fhpsoyt pain medicines, like aspirin and ibuprofen. Having a family history of diverticulosis. What are the signs or symptoms? In most people, there are no symptoms of this condition. If you do have symptoms, they may include: Bloating. Cramps in the abdomen. Constipation or diarrhea. Pain in the lower left side of the abdomen. How is this diagnosed? This condition is most often diagnosed during an exam for other colon problems. Because diverticulosis usually has no symptoms, it often cannot be diagnosed independently. This condition may be diagnosed by: Using a flexible scope to examine the colon (colonoscopy). Taking an X-ray of the colon after dye has been put into the colon (barium enema). Doing a CT scan. How is this treated? You may not need treatment for this condition if you have never developed an infection related to diverticulosis. If you have had an infection before, treatment may include: Eating a high-fiber diet. This may include eating more fruits, vegetables, and grains. Taking a fiber supplement. Taking a live bacteria supplement (probiotic). Taking medicine to relax your colon. Taking antibiotic medicines. Follow these instructions at home: Drink 6 8 glasses of water or more each day to prevent constipation. Try not to strain when you have a bowel movement. If you have had an infection before: ?Eat more fiber as directed by your health care provider or your diet and account installation specialist (dietitian). ?Take a fiber supplement or probiotic, if your health care provider approves. Take tbgp-adv-lichfni and prescription medicines only as told by your health care provider. If you were prescribed an antibiotic, take it as told by your health care provider. Do not stop taking the antibiotic even if you start to feel better. Keep all follow-up visits as told by your health care provider. This is important. Contact a health care provider if: You have pain in your abdomen. You have bloating. You have cramps. You have not had a bowel movement in 3 days. Get help right away if: Your pain gets worse. Your bloating becomes very bad. You have a fever or chills, and your symptoms suddenly get worse. You vomit. You have bowel movements that are bloody or black. You have bleeding from your rectum. Summary Diverticulosis is a condition that develops when small pouches (diverticula) form in the wall of the large intestine (colon). You may have a few pouches or many of them. This condition is most often diagnosed during an exam for other colon problems. If you have had an infection related to diverticulosis, treatment may include increasing the fiber in your diet, taking supplements, or taking medicines. This information is not intended to replace advice given to you by your health care provider. Make sure you discuss any questions you have with your health care provider. Document Released: 10/19/2004 Document Revised: 01/04/2018 Document Reviewed: 12/11/2016 [employer] Patient Education 2020 [employer]. 03/26/2023 10:14:29 Steps to Quit Smoking, Zfek-rg-Wvjn Steps to Quit Smoking Smoking tobacco is the leading cause of preventable . It can affect almost every organ in the body. Smoking puts you and people around you at risk for many serious, long-lasting (chronic) diseases. Quitting smoking can be hard, but it is one of the best things that you can do for your health. It is never too late to quit. How do I get ready to quit? When you decide to quit smoking, make a plan to help you succeed. Before you quit: Pick a date to quit. Set a date within the next 2 weeks to give you time to prepare. Write down the reasons why you are quitting. Keep this list in places where you will see it often. Tell your family, friends, and co-workers that you are quitting. Their support is important. Talk with your doctor about the choices that may help you quit. Find out if your health insurance will pay for these treatments. Know the people, places, things, and activities that make you want to smoke (triggers). Avoid them. What first steps can I take to quit smoking? Throw away all cigarettes at home, at work, and in your car. Throw away the things that you use when you smoke, such as ashtrays and lighters. Clean your car. Make sure to empty the ashtray. Clean your home, including curtains and carpets. What can I do to help me quit smoking? Talk with your doctor about taking medicines and seeing a counselor at the same time. You are more likely to succeed when you do both. If you are or , talk with your doctor about counseling or other ways to quit smoking. Do not take medicine to help you quit smoking unless your doctor tells you to do so. To quit smoking: Quit right away Quit smoking totally, instead of slowly cutting back on how much you smoke over a period of time. Go to counseling. You are more likely to quit if you go to counseling sessions regularly. Take medicine You may take medicines to help you quit. Some medicines need a prescription, and some you can buy kxeo-nsx-yadjfql. Some medicines may contain a drug called nicotine to replace the nicotine in cigarettes. Medicines may: Help you to stop having the desire to smoke (cravings). Help to stop the problems that come when you stop smoking (withdrawal symptoms). Your doctor may ask you to use: Nicotine patches, gum, or lozenges. Nicotine inhalers or sprays. Non-nicotine medicine that is taken by mouth. Find resources Find resources and other ways to help you quit smoking and remain smoke-free after you quit. These resources are most helpful when you use them often. They include: Online chats with a counselor. Phone quitlines. Printed self-help materials. Support groups or group counseling. Text messaging programs. Mobile phone apps. Use apps on your mobile phone or tablet that can help you stick to your quit plan. There are many free apps for mobile phones and tablets as well as websites. Examples include QuitGuide from the [employer] and smokefree.gov What things can I do to make it easier to quit? Talk to your family and friends. Ask them to support and encourage you. Call a phone quitline (6-946-CXUF-NOW), reach out to support groups, or work with a counselor. Ask people who smoke to not smoke around you. Avoid places that make you want to smoke, such as: ?Bars. ?Parties. ?Smoke-break areas at work. Spend time with people who do not smoke. Lower the stress in your life. Stress can make you want to smoke. Try these things to help your stress: ?Getting regular exercise. ?Doing deep-breathing exercises. ?Doing yoga. ?Meditating. ?Doing a body scan. To do this, close your eyes, focus on one area of your body at a time from headto toe. Notice which parts of your body are tense. Try to relax the muscles in those areas. How will I feel when I quit smoking? Day 1 to 3 weeks Within the first 24 hours, you may start to have some problems that come from quitting tobacco. These problems are very bad 2 3 days after you quit, but they do not often last for more than 2 3 weeks. You may get these symptoms: Mood swings. Feeling restless, nervous, angry, or annoyed. Trouble concentrating. Dizziness. Strong desire for high-sugar foods and nicotine. Weight gain. Trouble pooping (constipation). Feeling like you may vomit (nausea). Coughing or a sore throat. Changes in how the medicines that you take for other issues work in your body. Depression. Trouble sleeping (insomnia). Week 3 and afterward After the first 2 3 weeks of quitting, you may start to notice more positive results, such as: Better sense of smell and taste. Less coughing and sore throat. Slower heart rate. Lower blood pressure. Clearer skin. Better breathing. Fewer sick days. Quitting smoking can be hard. Do not give up if you fail the first time. Some people need to try a few times before they succeed. Do your best to stick to your quit plan, and talk with your doctor ifyou have any questions or concerns. Summary Smoking tobacco is the leading cause of preventable . Quitting smoking can be hard, but it is one of the best things that you can do for your health. When you decide to quit smoking, make a plan to help you succeed. Quit smoking right away, not slowly over a period of time. When you start quitting, seek help from your doctor, family, or friends. This information is not intended to replace advice given to you by your health care provider. Make sure you discuss any questions you have with your health care provider. Document Released: 11/18/2009 Document Revised: 04/11/2019 Document Reviewed: 04/12/2019 [employer] Patient Education 2020 [employer]. 03/26/2023 10:14:13 Colonoscopy, Adult, Care After, Aeil-gg-Lzps Colonoscopy, Adult, Care After This sheet gives you information about how to care for yourself after your procedure. Your doctor may also give you more specific instructions. If you have problems or questions, call your doctor. What can I expect after the procedure? After the procedure, it is common to have: A small amount of blood in your poop for 24 hours. Some gas. Mild cramping or bloating in your belly. Follow these instructions at home: General instructions For the first 24 hours after the procedure: ?Do not drive or use machinery. ?Do not sign important documents. ?Do not drink alcohol. ?Do your daily activities more slowly than normal. ?Eat foods that are soft and easy to digest. Take egao-yyc-aclcead or prescription medicines only as told by your doctor. To help cramping and bloating: Try walking around. Put heat on your belly (abdomen) as told by your doctor. Use a heat source that your doctor recommends, such as a moist heat pack or a heating pad. ?Put a towel between your skin and the heat source. ?Leave the heat on for 20 30 minutes. ?Remove the heat if your skin turns bright red. This is especially important if you cannot feel pain, heat, or cold. You can get burned. Eating and drinking Drink enough fluid to keep your pee (urine) clear or pale yellow. Return to your normal diet as told by your doctor. Avoid heavy or fried foods that are hard to digest. Avoid drinking alcohol for as long as told by your doctor. Contact a doctor if: You have blood in your poop (stool) 2 3 days after the procedure. Get help right away if: You have more than a small amount of blood in your poop. You see large clumps of tissue (blood clots) in your poop. Your belly is swollen. You feel sick to your stomach (nauseous). You throw up (vomit). You have a fever. You have belly pain that gets worse, and medicine does not help your pain. Summary After the procedure, it is common to have a small amount of blood in your poop. You may also have mild cramping and bloating in your belly. For the first 24 hours after the procedure, do not drive or use machinery, do not sign important documents, and do not drink alcohol. Get help right away if you have a lot of blood in your poop, feel sick to your stomach, have a fever, or have more belly pain. This information is not intended to replace advice given to you by your health care provider. Make sure you discuss any questions you have with your health care provider. Document Released: 02/24/2011 Document Revised: 11/22/2017 Document Reviewed: 10/16/2016 [employer] Patient Education 2020 [employer]. 03/26/2023 10:14:02 Monitored Anesthesia Care, Care After Monitored Anesthesia Care, Care After These instructions provide you with information about caring for yourself after your procedure. Your health care provider may also give you more specific instructions. Your treatment has been plannedaccording to current medical practices, but problems sometimes occur. Call your health care provider if you have any problems or questions after your procedure. What can I expect after the procedure? After your procedure, you may: Feel sleepy for several hours. Feel clumsy and have poor balance for several hours. Feel forgetful about what happened after the procedure. Have poor judgment for several hours. Feel nauseous or vomit. Have a sore throat if you had a breathing tube during the procedure. Follow these instructions at home: For at least 24 hours after the procedure: Have a responsible adult stay with you. It is important to have someone help care for you until youare awake and alert. Rest as needed. Do not: ?Participate in activities in which you could fall or become injured. ?Drive. ?Use heavy machinery. ?Drink alcohol. ?Take sleeping pills or medicines that cause drowsiness. ?Make important decisions or sign legal documents. ?Take care of children on your own. Eating and drinking Follow the diet that is recommended by your health care provider. If you vomit, drink water, juice, or soup when you can drink without vomiting. Make sure you have little or no nausea before eating solid foods. General instructions Take kwmx-psx-lrdugdi and prescription medicines only as told by your health care provider. If you have sleep apnea, surgery and certain medicines can increase your risk for breathing problems. Follow instructions from your health care provider about wearing your sleep device: ?Anytime you are sleeping, including during daytime naps. ?While taking prescription pain medicines, sleeping medicines, or medicines that make you drowsy. If you smoke, do not smoke without supervision. Keep all follow-up visits as told by your health care provider. This is important. Contact a health care provider if: You keep feeling nauseous or you keep vomiting. You feel light-headed. You develop a rash. You have a fever. Get help right away if: You have trouble breathing. Summary For several hours after your procedure, you may feel sleepy and have poor judgment. Have a responsible adult stay with you for at least 24 hours or until you are awake and alert. This information is not intended to replace advice given to you by your health care provider. Make sure you discuss any questions you have with your health care provider. Document Released: 05/14/2016 Document Revised: 04/22/2018 Document Reviewed: 05/14/2016 [employer] Patient Education 2020 [employer]. Follow Up Care 03/15/2023 09:34:53 With:PATRICIA STEVENS MD Address: [address] [place] [phone] When: Unknown Comments:CALL DR STEVENS WITH ANY QUESTIONS OR CONCERNS. GO TO THE EMERGENCY ROOM WITH ANY URGENT CONCERNS. YOU DO HAVE SOME DIVERTICULI . With:PATRICIA STEVENS MD [address] [facility] [address] [place] [address]- [phone] When: Unknown Comments:CALL DR STEVENS WITH ANY QUESTIONS OR CONCERNS. GO TO THE EMERGENCY ROOM WITH ANY URGENT CONCERNS. [facility] 02-19-2024 Note Discharge Instructions Thank you for allowing [facility] to assist you with your healthcare needs. The following is importantdischarge information regarding your hospital visit. Your Care Team SHRUTHI BOND DO DR ROS STEVENS What to do next Scheduled Follow-Up Appointments Appointment Type When With [facility] 01:30 PM ESHA DHILLON MD [facility] 04/02/2023 01:30 PM SHRUTHI ROBERTSON DO [facility] [address] [phone] [facility] 06/18/2023 03:00 PM EDT SHRUTHI BODN DO [address] [phone] Follow Up Appointments Follow Up with PATRICIA STEVENS MD When Why: CALL DR STEVENS WITH ANY QUESTIONS OR CONCERNS. GO TO THE EMERGENCY ROOM WITH ANY URGENT CONCERNS. YOU DO HAVE SOME DIVERTICULI . Where: [address] [place] [address] [place] [address]- [phone] The Following Activity and Diet Have Been Ordered for You Discharge Activity - Ordered -- NO activity restrictions, 03/26/23 10:06:00 EST Discharge Diet - Ordered -- Follow the post-operative/post-procedure diet instructions provided by your physician's office.,03/26/23 10:06:00 EST The Following Equipment Has Been Ordered for You Discharge Home Equipment Discharge Wound Care - Ordered -- Follow the post-operative/post-procedure wound care instructions provided by your physician's office., 03/26/23 10:06:00 EST Allergies Duricef (swelling, hives) Medications Please ask your primary doctor or pharmacist before taking any other medication not listed, including over the counter drugs, herbal medications, vitamins and or supplements as they may interact withyour home medications. What How Much When Why Instructions Last Dose Unchanged acetaminophen- hydrocodone ([place] 325- 5 mg oral tablet) 1 tab(s) by mouth Every 6 hours Right hip pain Duration: 30 Days Goal is #8 per month or less Unchanged acetaminophen-hydrocodone ([place] 325- 5 mg oral tablet) 1 tab(s) by mouth Every 6 hours Right hip pain Duration: 30 Days Goal is #8 per month or less Unchanged albuterol (ProAir HFA MDI (90 mcg/ inh) inhalation aerosol) 2 puff(s) by inhalation Every 4 hours as needed for as needed for wheezing Unchanged cetirizine (Zyrtec 10 mg oral tablet) 1 tab(s) by mouth Once a day Unchanged fluticasone/ umeclidinium/ vilanterol (Trelegy Ellipta 200 mcg-62.5 mcg-25 mcg/ inh inhalation powder) 1 puff(s) by inhalation Once a day at the same time every day Unchanged fluticasone/ umeclidinium/ vilanterol (Trelegy Ellipta 200 mcg-62.5 mcg-25 mcg/ inh inhalation powder) Unchanged irbesartan (irbesartan 300 mg oral tablet) 1 tab(s) by mouth Once a day Unchanged levothyroxine (levothyroxine 75 mcg (0.075 mg) oral tablet) 1 tab(s) by mouth Once a day Unchanged multivitamin (K2 Plus D3) Unchanged multivitamin with minerals (H[employer] Skin [employer] Nails) by mouth Once a day from [employer] Unchanged naproxen (Aleve 220 mg oral tablet) 2 tab(s) by mouth Every 8 hours as needed for for headache Unchanged nutritional supplement Joint supplement from [employer] Unchanged pantoprazole (pantoprazole 40 mg oral enteric coated tablet) 1 tab(s) by mouth Once a day before a meal Unchanged sertraline (sertraline 100 mg oral tablet) 2 tab(s) by mouth Every day Please take this list to your next doctor s visit. Bring all medications you take, including over the counter medications, herbals and other supplements with you to your doctor s visit. Patients and families are reminded to discard old lists and to update any records with all medication providers or retail pharmacies. Education Materials Colon Biopsy, Care After This sheet gives you information about how to care for yourself after your procedure. Your health care provider may also give you more specific instructions. If you have problems or questions, contact your health care provider. What can I expect after the procedure? After the procedure, it is common to have: A small amount of blood in your stool for 24 hours after the procedure. Some gas. Mild cramping or bloating in your abdomen. Follow these instructions at home: General instructions For the first 24 hours after the procedure: ? Do not drive or use machinery. ? Do not sign important documents. ? Do not drink alcohol. ? Do your regular daily activities at a slower pace than normal. ? Eat soft, ihid-mw-nbcwyp foods. ? Rest often. Take nsmv-lrv-mamalhc or prescription medicines only as told by your health care provider. Keep all follow-up visits as told by your health care provider. This is important. Relieving cramping and bloating Try walking around when you have cramps or feel bloated. Put heat on your abdomen as told by your health care provider. Use a heat source that your health care provider recommends, such as a moist heat pack or a heating pad. ? Place a towel between your skin and the heat source. ? Leave the heat on for 20 30 minutes. ? Remove the heat if your skin turns bright red. This is especially important if you are unable to feel pain, heat, or cold. You may have a greater risk of getting burned. Eating and drinking Drink enough fluid to keep your urine pale yellow. Return to your normal diet as instructed by your health care provider. Avoid heavy or fried foods that are hard to digest. Avoid drinking alcohol for as long as told by your health care provider. Contact a health care provider if: You have blood in your stool 2 3 days after the procedure. Get help right away if: You have more than a small spotting of blood in your stool. You pass large blood clots in your stool. Your abdomen is swollen. You have nausea or vomiting. You have a fever. You have increasing abdominal pain that is not relieved with medicine. Summary After the procedure, it is common to have mild cramping and bloating in the abdomen. Do not drive for 24 hours after the procedure. Try walking around when you have cramps or feel bloated. This information is not intended to replace advice given to you by your health care provider. Make sure you discuss any questions you have with your health care provider. Document Released: 07/03/2017 Document Revised: 01/04/2018 Document Reviewed: 07/03/2017 [employer] Patient Education 2020 [employer] Diverticulosis Diverticulosis is a condition that develops when small pouches (diverticula) form in the wall of the large intestine (colon). The colon is where water is absorbed and stool is formed. The pouches form when the inside layer of the colon pushes through weak spots in the outer layers of the colon. Youmay have a few pouches or many of them. What are the causes? The cause of this condition is not known. What increases the risk? The following factors may make you more likely to develop this condition: Being older than age 60. Your risk for this condition increases with age. Diverticulosis is rare among people younger than age 30. By age 80, many people have it. Eating a low-fiber diet. Having frequent constipation. Being overweight. Not getting enough exercise. Smoking. Taking vtxo-mqy-wqnetvk pain medicines, like aspirin and ibuprofen. Having a family history of diverticulosis. What are the signs or symptoms? In most people, there are no symptoms of this condition. If you do have symptoms, they may include: Bloating. Cramps in the abdomen. Constipation or diarrhea. Pain in the lower left side of the abdomen. How is this diagnosed? This condition is most often diagnosed during an exam for other colon problems. Because diverticulosis usually has no symptoms, it often cannot be diagnosed independently. This condition may be diagnosed by: Using a flexible scope to examine the colon (colonoscopy). Taking an X-ray of the colon after dye has been put into the colon (barium enema). Doing a CT scan. How is this treated? You may not need treatment for this condition if you have never developed an infection related to diverticulosis. If you have had an infection before, treatment may include: Eating a high-fiber diet. This may include eating more fruits, vegetables, and grains. Taking a fiber supplement. Taking a live bacteria supplement (probiotic). Taking medicine to relax your colon. Taking antibiotic medicines. Follow these instructions at home: Drink 6 8 glasses of water or more each day to prevent constipation. Try not to strain when you have a bowel movement. If you have had an infection before: ? Eat more fiber as directed by your health care provider or your diet and account installation specialist (dietitian). ? Take a fiber supplement or probiotic, if your health care provider approves. Take oejh-fuy-vlbxqbs and prescription medicines only as told by your health care provider. If you were prescribed an antibiotic, take it as told by your health care provider. Do not stop taking the antibiotic even if you start to feel better. Keep all follow-up visits as told by your health care provider. This is important. Contact a health care provider if: You have pain in your abdomen. You have bloating. You have cramps. You have not had a bowel movement in 3 days. Get help right away if: Your pain gets worse. Your bloating becomes very bad. You have a fever or chills, and your symptoms suddenly get worse. You vomit. You have bowel movements that are bloody or black. You have bleeding from your rectum. Summary Diverticulosis is a condition that develops when small pouches (diverticula) form in the wall of the large intestine (colon). You may have a few pouches or many of them. This condition is most often diagnosed during an exam for other colon problems. If you have had an infection related to diverticulosis, treatment may include increasing the fiber in your diet, taking supplements, or taking medicines. This information is not intended to replace advice given to you by your health care provider. Make sure you discuss any questions you have with your health care provider. Document Released: 10/19/2004 Document Revised: 01/04/2018 Document Reviewed: 12/11/2016 [employer] Patient Education 2020 [employer] Steps to Quit Smoking Smoking tobacco is the leading cause of preventable . It can affect almost every organ in the body. Smoking puts you and people around you at risk for many serious, long-lasting (chronic) diseases. Quitting smoking can be hard, but it is one of the best things that you can do for your health. It is never too late to quit. How do I get ready to quit? When you decide to quit smoking, make a plan to help you succeed. Before you quit: Pick a date to quit. Set a date within the next 2 weeks to give you time to prepare. Write down the reasons why you are quitting. Keep this list in places where you will see it often. Tell your family, friends, and co-workers that you are quitting. Their support is important. Talk with your doctor about the choices that may help you quit. Find out if your health insurance will pay for these treatments. Know the people, places, things, and activities that make you want to smoke (triggers). Avoid them. What first steps can I take to quit smoking? Throw away all cigarettes at home, at work, and in your car. Throw away the things that you use when you smoke, such as ashtrays and lighters. Clean your car. Make sure to empty the ashtray. Clean your home, including curtains and carpets. What can I do to help me quit smoking? Talk with your doctor about taking medicines and seeing a counselor at the same time. You are more likely to succeed when you do both. If you are or , talk with your doctor about counseling or other ways to quit smoking. Do not take medicine to help you quit smoking unless your doctor tells you to do so. To quit smoking: Quit right away Quit smoking totally, instead of slowly cutting back on how much you smoke over a period of time. Go to counseling. You are more likely to quit if you go to counseling sessions regularly. Take medicine You may take medicines to help you quit. Some medicines need a prescription, and some you can buy gwlh-rup-wysthkj. Some medicines may contain a drug called nicotine to replace the nicotine in cigarettes. Medicines may: Help you to stop having the desire to smoke (cravings). Help to stop the problems that come when you stop smoking (withdrawal symptoms). Your doctor may ask you to use: Nicotine patches, gum, or lozenges. Nicotine inhalers or sprays. Non-nicotine medicine that is taken by mouth. Find resources Find resources and other ways to help you quit smoking and remain smoke-free after you quit. These resources are most helpful when you use them often. They include: Online chats with a counselor. Phone quitlines. Printed self-help materials. Support groups or group counseling. Text messaging programs. Mobile phone apps. Use apps on your mobile phone or tablet that can help you stick to your quit plan. There are many free apps for mobile phones and tablets as well as websites. Examples include QuitGuide from the CDC and smokefree.gov What things can I do to make it easier to quit? Talk to your family and friends. Ask them to support and encourage you. Call a phone quitline (7-047-QNUXNOW), reach out to support groups, or work with a counselor. Ask people who smoke to not smoke around you. Avoid places that make you want to smoke, such as: ? Bars. ? Parties. ? Smoke-break areas at work. Spend time with people who do not smoke. Lower the stress in your life. Stress can make you want to smoke. Try these things to help your stress: ? Getting regular exercise. ? Doing deep-breathing exercises. ? Doing yoga. ? Meditating. ? Doing a body scan. To do this, close your eyes, focus on one area of your body at a time from head to toe. Notice which parts of your body are tense. Try to relax the muscles in those areas. How will I feel when I quit smoking? Day 1 to 3 weeks Within the first 24 hours, you may start to have some problems that come from quitting tobacco. These problems are very bad 2 3 days after you quit, but they do not often last for more than 2 3 weeks. You may get these symptoms: Mood swings. Feeling restless, nervous, angry, or annoyed. Trouble concentrating. Dizziness. Strong desire for high-sugar foods and nicotine. Weight gain. Trouble pooping (constipation). Feeling like you may vomit (nausea). Coughing or a sore throat. Changes in how the medicines that you take for other issues work in your body. Depression. Trouble sleeping (insomnia). Week 3 and afterward After the first 2 3 weeks of quitting, you may start to notice more positive results, such as: Better sense of smell and taste. Less coughing and sore throat. Slower heart rate. Lower blood pressure. Clearer skin. Better breathing. Fewer sick days. Quitting smoking can be hard. Do not give up if you fail the first time. Some people need to try a few times before they succeed. Do your best to stick to your quit plan, and talk with your doctor ifyou have any questions or concerns. Summary Smoking tobacco is the leading cause of preventable . Quitting smoking can be hard, but it is one of the best things that you can do for your health. When you decide to quit smoking, make a plan to help you succeed. Quit smoking right away, not slowly over a period of time. When you start quitting, seek help from your doctor, family, or friends. This information is not intended to replace advice given to you by your health care provider. Make sure you discuss any questions you have with your health care provider. Document Released: 11/18/2009 Document Revised: 04/11/2019 Document Reviewed: 04/12/2019 [employer] Patient Education 2020 [employer] Colonoscopy, Adult, Care After This sheet gives you information about how to care for yourself after your procedure. Your doctor may also give you more specific instructions. If you have problems or questions, call your doctor. What can I expect after the procedure? After the procedure, it is common to have: A small amount of blood in your poop for 24 hours. Some gas. Mild cramping or bloating in your belly. Follow these instructions at home: General instructions For the first 24 hours after the procedure: ? Do not drive or use machinery. ? Do not sign important documents. ? Do not drink alcohol. ? Do your daily activities more slowly than normal. ? Eat foods that are soft and easy to digest. Take qgcr-pit-gyukdym or prescription medicines only as told by your doctor. To help cramping and bloating: Try walking around. Put heat on your belly (abdomen) as told by your doctor. Use a heat source that your doctor recommends, such as a moist heat pack or a heating pad. ? Put a towel between your skin and the heat source. ? Leave the heat on for 20 30 minutes. ? Remove the heat if your skin turns bright red. This is especially important if you cannot feel pain, heat, or cold. You can get burned. Eating and drinking Drink enough fluid to keep your pee (urine) clear or pale yellow. Return to your normal diet as told by your doctor. Avoid heavy or fried foods that are hard to digest. Avoid drinking alcohol for as long as told by your doctor. Contact a doctor if: You have blood in your poop (stool) 2 3 days after the procedure. Get help right away if: You have more than a small amount of blood in your poop. You see large clumps of tissue (blood clots) in your poop. Your belly is swollen. You feel sick to your stomach (nauseous). You throw up (vomit). You have a fever. You have belly pain that gets worse, and medicine does not help your pain. Summary After the procedure, it is common to have a small amount of blood in your poop. You may also have mild cramping and bloating in your belly. For the first 24 hours after the procedure, do not drive or use machinery, do not sign important documents, and do not drink alcohol. Get help right away if you have a lot of blood in your poop, feel sick to your stomach, have a fever, or have more belly pain. This information is not intended to replace advice given to you by your health care provider. Make sure you discuss any questions you have with your health care provider. Document Released: 02/24/2011 Document Revised: 11/22/2017 Document Reviewed: 10/16/2016 Elsevier Patient Education 2020 [employer]. Monitored Anesthesia Care, Care After These instructions provide you with information about caring for yourself after your procedure. Your health care provider may also give you more specific instructions. Your treatment has been plannedaccording to current medical practices, but problems sometimes occur. Call your health care provider if you have any problems or questions after your procedure. What can I expect after the procedure? After your procedure, you may: Feel sleepy for several hours. Feel clumsy and have poor balance for several hours. Feel forgetful about what happened after the procedure. Have poor judgment for several hours. Feel nauseous or vomit. Have a sore throat if you had a breathing tube during the procedure. Follow these instructions at home: For at least 24 hours after the procedure: Have a responsible adult stay with you. It is important to have someone help care for you until youare awake and alert. Rest as needed. Do not: ? Participate in activities in which you could fall or become injured. ? Drive. ? Use heavy machinery. ? Drink alcohol. ? Take sleeping pills or medicines that cause drowsiness. ? Make important decisions or sign legal documents. ? Take care of children on your own. Eating and drinking Follow the diet that is recommended by your health care provider. If you vomit, drink water, juice, or soup when you can drink without vomiting. Make sure you have little or no nausea before eating solid foods. General instructions Take egvu-bct-jhopgjb and prescription medicines only as told by your health care provider. If you have sleep apnea, surgery and certain medicines can increase your risk for breathing problems. Follow instructions from your health care provider about wearing your sleep device: ? Anytime you are sleeping, including during daytime naps. ? While taking prescription pain medicines, sleeping medicines, or medicines that make you drowsy. If you smoke, do not smoke without supervision. Keep all follow-up visits as told by your health care provider. This is important. Contact a health care provider if: You keep feeling nauseous or you keep vomiting. You feel light-headed. You develop a rash. You have a fever. Get help right away if: You have trouble breathing. Summary For several hours after your procedure, you may feel sleepy and have poor judgment. Have a responsible adult stay with you for at least 24 hours or until you are awake and alert. This information is not intended to replace advice given to you by your health care provider. Make sure you discuss any questions you have with your health care provider. Document Released: 05/14/2016 Document Revised: 04/22/2018 Document Reviewed: 05/14/2016 Elsevier Patient Education 2020 [employer] Additional Information VACCINATE! IT SAVES LIVES! Members of the community who have not yet received the COVID-19 vaccine and would like to receive it can visit one of [facility] vaccine clinics. There are many vaccine clinic locations within the [facility]. For locations and available times, please visit [email or web address] It is important to note that some COVID mobile vaccine clinics are held outdoors and may be canceled in rainy or stormy conditions. To learn more about pediatric vaccinations (ages 5-11), we invite you to visit the [employer] webpage. [email or web address] learn more about the COVID-19 vaccine, we invite you to visit the CDC website for a list of frequently asked questions.https://www.cdc.gov/coronavirus/2019-ncov/vaccines/faq.html [employer] Patient Portal Access Instructions: Stay connected with your healthcare team and access your personal medical information anytime with the [employer] Patient Portal. Please follow the directions below to create your [employer] account: 1.Access the email account you provided upon registration to the hospital/physician office.2.Look for an invitation email from [facility].3.Open the email and access the invitation link: AcceptInvitation to [employer].4.Fill in the required richardson to create your account. To access your account, visit [employer]/MyFrontStepst. Click the blue button labeled Access Patient Portal and then log in with the username and password that you created in the steps above. You will be able to view your test results, lab results, a summary of your visits, upcoming appointments and more. There is also a convenient messaging option where you can send secure messages to your p rovider. In addition, you will have the ability to download any documents or summaries to your computer and/or send the information securely to a physician. Remember that your healthcare information is confidential, so carefully consider who you will allowto register on the [facility] Patient Portal for access to your information. You can also access the [facility] Patient Portal on the [employer] [employer]. Simply click on Patient Portal and then log into your account. If you would like to receive a full copy of your medical records, please contact the [facility] Medical Records Department by calling [phone], Sunday through Sunday between 8 a.m. and 4:30 p.m. HOW TO SAFELY DISPOSE OF PRESCRIPTION MEDICATIONS Please use one of the following methods to safely dispose of your unused medications. 1.Use a drug disposal kit: the drug disposal pouch allows you to safely discard your old and unuseddrugs. Ask your nurse to give you one when you are discharged.2.Visit a local take-back location: Many local pharmacies and police departments have programs that collect old and unwanted prescriptiondrugs. Call your local pharmacy or go to http://[employer]/8M9Gc1p to find one close to you.3.Make use of household items: Use cat litter or old coffee grounds to dispose medications if other options arenot available. Mix your drugs with these household products, seal them in an airtight container andthrow it into the garbage. Call [facility]: [phone] to be sure your drugs can be disposed of in this way. Some medicines may require a different approach.4.Never flush your medications down the toilet. IF YOU HAVE BEEN PRESCRIBED AN OPIOID FOR PAIN If you have been prescribed an opioid (such as hydrocodone, oxycodone or morphine), it is critical to understand the possible side effects and risks of opioid pain medications. Even when taken as directed, opioids can have several side effects including: Tolerance, meaning you might need to take more of a medication for the same pain relief. Nausea, vomiting and/or constipation. Sleepiness, dizziness, dry mouth, confusion, depression or itching. Physical dependence, meaning you have withdrawal symptoms when a medication is stopped, can develop within a few days. KNOW YOUR RESPONSIBILITIES It is important to know exactly how much and how often to take the opioid pain medications you are prescribed. Never take opioids in higher amounts or more often than prescribed. Do not combine opioids with alcohol or other drugs that cause drowsiness, such as benzodiazepines, also known as benzos, including diazepam and alprazolam, muscle relaxants or sleep aids. Never sell or share prescription opioids. This is illegal. Store opioids in a secure place and out of reach of others (including children, family, friends and visitors). The last page of this document has been signed and retained as a CHART COPY. Signatures Patient Education Materials Colon Biopsy, Care After Diverticulosis Steps to Quit Smoking, Qtha-nd-Hbxy Colonoscopy, Adult, Care After, Whnr-zz-Sozq Monitored Anesthesia Care, Care After Medication Leaflets My discharge plan and instructions have been reviewed and explained to me and I,DONALDO ZHAO understand my current condition and have read and understand these discharge instructions. I have received a written copy of the plan/instructions. If I have questions, I am aware that I should contact my doctor. 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: Date/Time: Relationship to Patient: Witness Name/Signature: Date/Time: [facility]-2024 Note [place] ADMISSION HISTORY AND PHYSICIAL CHIEF COMPLAINT: HISTORY OF PRESENT ILLNESS: REVIEW OF SYSTEMS: ACTIVE PROBLEMS: (30) Arthritis, rheumatoid ([id number]) Colon polyps ([id number]) COPD - Chronic obstructive pulmonary disease (259030150) COVID-19 (8044513658) Elevated TSH (2658484191) Essential hypertension (32643253) GERD (gastroesophageal reflux disease) (209676517) Glasses (8101220918) Hard of hearing (087276638) History of anal cancer (2772855277) Hypothyroidism (67280416) Increased frequency of urination (516102512) Insomnia (919087425) detention prescription opiate use (464801840) Long-term current use of proton pump inhibitor therapy (3146175583) Major depressive disorder, recurrent (107926632) On supplemental oxygen by nasal cannula (9107726465) Osteopenia (247271365) Prolapse, uterovaginal (78636033) Restless leg syndrome (69938973) Rheumatoid nodules ([id number]) Right hip pain (82520935) Sebaceous cyst (1980827988) Shortness of breath on exertion (129305911) Snores (5220085867) SOBOE (shortness of breath on exertion) ([id number]) Tobacco use (0366116438) Urinary incontinence (8046790953) Vertigo, some tinnitus and hearing loss (6159851265) Vitamin D deficiency (12072934) MEDICATIONS: Active Inpt Meds: None Active PRN Meds: None One Time Meds: None Active IV Meds: Lactated Ringers Infusion 1,000 mL (LR 1,000 mL) Start: 03/26/23 9:39:00 EST, Rate: 50 mL/hr, 03/26/23 9:39:00 EST ALLERGIES: (1) Duricef FAMILY HISTORY: SOCIAL HISTORY: PHYSICAL EXAM: VITALS: SwtrzmPpyzTQKlnstEMPpA8XHY4OdwhPr(kg) 03/26 09:4836.7--207986 2.0L/m003/26 99.5 24 Hr Tmax: 36.7 at 03/26 09:48 36 Hr Tmax: 36.7 at 03/26 09:48 Vital Signs are the last 5 in the past 48 hours. Weights display the last 5 within 7 days. Initial Wt: 03/26 99.5 kg 219 lb Current Wt: 03/26 99.5 kg 219 lb GENERAL: HEENT: CARDIOVASCULAR: RESPIRATORY: ABDOMEN: EXREMETIES: NEUROLOGICAL: PSYCHIATRIC: LABS: No 36hr Lab Data DIAGNOSTICS: IMPRESSION: PLAN: History and Physical Update I have examined the patient; reviewed the H&P and there are no changes to the H&P unless noted below. Digitally Signed by PATRICIA STEVENS MD on 03/26/2023 09:54 AM [facility]02-19-2024 Anesthesiology Consult note Patient: DONALDO ZHAO Age: 68 years Sex: Female : 1955 Associated Diagnoses: None Author: LAZARO RENO NURSING CONSULTANT-LINE ASSEMBLER Preoperative Information Anesthesia history Patient's history: negative. Family's history: negative. Health Status Allergies: Allergic Reactions (Selected) Severity Not Documented Duricef- Swelling and hives., Allergies (1) ActiveReaction Duricefswelling Current medications: (Selected) Inpatient Medications Ordered LR 1,000 mL: 50 mL/hr, Intravenous Prescriptions Prescribed [place] 325- 5 mg oral tablet: 1 tab(s), Oral, q6hr, for 30 day(s), Goal is #8 per month or less, 10 tab(s), 0 Refill(s) [place] 325- 5 mg oral tablet: 1 tab(s), Oral, q6hr, for 30 day(s), Goal is #8 per month or less, 10 tab(s), 0 Refill(s) ProAir HFA MDI (90 mcg/inh) inhalation aerosol: 2 puff(s), Inhalation, q4h, PRN: as needed for wheezing, 3 EA, 4 Refill(s) Zyrtec 10 mg oral tablet: 10 mg, 1 tab(s), Oral, qDay, 90 tab(s), 3 Refill(s) irbesartan 300 mg oral tablet: 300 mg, 1 tab(s), Oral, qDay, 90 tab(s), 1 Refill(s) levothyroxine 75 mcg (0.075 mg) oral tablet: 75 mcg, 1 tab(s), Oral, qDay, 90 tab(s), 1 Refill(s) pantoprazole 40 mg oral enteric coated tablet: 40 mg, 1 tab(s), Oral, qDayAC, 90 tab(s), 1 Refill(s) sertraline 100 mg oral tablet: 200 mg, 2 tab(s), Oral, Daily, 180 tab(s), 3 Refill(s) Documented Medications Documented Aleve 220 mg oral tablet: 440 mg, 2 tab(s), Oral, q8h, PRN: for headache, 0 Refill(s) Hair Skin and Nails: Oral, qDay, from [place], 0 Refill(s) K2 Plus D3: 0 Refill(s) Trelegy Ellipta 200 mcg-62.5 mcg-25 mcg/inh inhalation powder: 0 Refill(s) Trelegy Ellipta 200 mcg-62.5 mcg-25 mcg/inh inhalation powder: 1 puff(s), Inhalation, qDay, at the same time every day, 0 Refill(s) nutritional supplement: Joint supplement from [employer], 0 Refill(s), Medications (1) Active Scheduled: (0) Continuous: (1) Lactated Ringers 1,000 mL 1,000 mL, Intravenous, 50 mL/hr PRN: (0) Problem list: Medical Arthritis, rheumatoid / SNOMED CT [id number] / Confirmed Colon polyps / SNOMED CT [id number] / Confirmed COPD - Chronic obstructive pulmonary disease / SNOMED CT 214716480 / Confirmed COVID-19 / SNOMED CT 8496290923 / Confirmed Shortness of breath on exertion / SNOMED CT 957992661 / Confirmed Essential hypertension / SNOMED CT 24482804 / Confirmed GERD (gastroesophageal reflux disease) / SNOMED CT 916714297 / Confirmed Glasses / SNOMED CT 6593861059 / Confirmed Hard of hearing / SNOMED CT 623197172 / Confirmed Right hip pain / SNOMED CT 88763736 / Confirmed History of anal cancer / SNOMED CT 2272779241 / Confirmed Hypothyroidism / SNOMED CT 37120949 / Confirmed Increased frequency of urination / SNOMED CT 610591863 / Confirmed Insomnia / SNOMED CT 478914866 / Confirmed Long-term current use of proton pump inhibitor therapy / SNOMED CT 0441698507 / Confirmed Osteopenia / SNOMED CT 996056864 / Confirmed On supplemental oxygen by nasal cannula / SNOMED CT 3350817235 / Confirmed detention prescription opiate use / SNOMED CT 238841182 / Confirmed Elevated TSH / SNOMED CT 2459974363 / Confirmed Major depressive disorder, recurrent / SNOMED CT 337334984 / Confirmed Restless leg syndrome / SNOMED CT 54063646 / Confirmed Rheumatoid nodules / SNOMED CT [id number] / Confirmed Sebaceous cyst / SNOMED CT 8881780432 / Confirmed Snores / SNOMED CT 6567269046 / Confirmed SOBOE (shortness of breath on exertion) / SNOMED CT [id number] / Confirmed Urinary incontinence / SNOMED CT 6295850685 / Confirmed Prolapse, uterovaginal / SNOMED CT 17618857 / Confirmed Vertigo, some tinnitus and hearing loss / SNOMED CT 2067611523 / Confirmed Vitamin D deficiency / SNOMED CT 25204229 / Confirmed, Active Problems (30) Arthritis, rheumatoid Colon polyps COPD - Chronic obstructive pulmonary disease COVID-19 Elevated TSH Essential hypertension GERD (gastroesophageal reflux disease) Glasses Hard of hearing History of anal cancer Hypothyroidism Increased frequency of urination Insomnia 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 use Long-term current use of proton pump inhibitor therapy Major depressive disorder, recurrent On supplemental oxygen by nasal cannula Osteopenia Prolapse, uterovaginal Restless leg syndrome Rheumatoid nodules Right hip pain Sebaceous cyst Shortness of breath on exertion Snores SOBOE (shortness of breath on exertion) Tobacco use Urinary incontinence Vertigo, some tinnitus and hearing loss Vitamin D deficiency Histories Past Medical History: Active COPD - Chronic obstructive pulmonary disease (129499550) SOBOE (shortness of breath on exertion) ([id number]-60JCB39077OD) Arthritis, rheumatoid (5Z5W29W7-[id number]-[id number]) Urinary incontinence (9185112047) Glasses (4618255706) Hard of hearing (730852742) Rheumatoid nodules (59255H1T-R14J-7280-017H-0C74B6X97TKB) Colon polyps ([id number]) Snores (2336898034) Resolved Pneumonia (383780875): Resolved. Family History: Patient was adopted. Alzheimer's disease Mother (Ada (biological mother) Marcos, ) Procedure history: Colonoscopy (686300752) on 05/06/2014 at 59 Years. H/O: tubal ligation (249579178) in 1993 at 38 Years. section (00066968) in 1985 at 30 Years. History of appendectomy (5301443521) in 1959 at 4 Years. Tonsillectomy with adenoidectomy (73439007) in 1958 at 3 Years. Elbow (079528204). Comments: 05/06/2014 9:19 KEERTHI Barr nodules removed Anal carcinoma (940796027). 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 2 grandchildren. [facility] [place] Nutrition/Health 03/26/2023 Caffeine intake amount: 4 servings daily pop and coffee . Physical Examination No qualifying data available General: Alert and oriented. Airway: Normal temporomandibular joint mobility. Mallampati classification: II (soft palate, fauces, uvula visible). Dentition Evaluation: Denies loose/chipped teeth. Cardiovascular: Normal rate, Regular rhythm. Neurologic: Alert, Oriented. Review / Management Results review: No qualifying data available , Lab results 03/26/2023 9:44 EST IV Present Present Allergies Yes Cfo On Yes Colon Prep Results Excellent Consent Form Signed Yes Patient Dressed In Hospital gown History & Physical Update On Chart Yes History & Physical On Chart Yes Obstructive Sleep Apnea Assess Completed Yes NPO Status Maintained Allergy Band on and Verified Yes Patient ID Band on and Verified Yes Implants Verified Yes Pacemaker/AICD Verified Yes Site Verified by Patient/Family Yes Anesthesia Consent Signed Yes Last Fluid Intake 03/26/2023 7:30 Last Food Intake 03/24/2023 9:45 Last Void 03/26/2023 9:45 . Assessment and Plan Citizen Of The [place] Society of Anesthesiologists (ASA) physical status classification: Class IV. Anesthetic Preoperative Plan Anesthetic technique: MAC. Postoperative pain management: Per surgeon. Risks discussed: nausea, vomiting, hypotension, allergic reaction, serious complications. Informed consent: signed by patient. Digitally Signed by LAZARO RENO on 03/26/2023 09:47 AM [facility]01-19-2024 Note Specimen Description: Liquid Prep w/ HPV Specimen: Cervical/Endocervical Screening or Diagnostic: Screening [facility] 01-19-2024 Note Specimen Description: Liquid Prep w/ HPV Specimen: Cervical/Endocervical Screening or Diagnostic: Screening [facility] 01-19-2024 Note Specimen Description: Liquid Prep w/ HPV Specimen: Cervical/Endocervical Screening or Diagnostic: Screening [facility] 01-19-2024 Note Specimen Description: Liquid Prep w/ HPV Specimen: Cervical/Endocervical Screening or Diagnostic: Screening [facility] 01-19-2024 Note Specimen Description: Liquid Prep w/ HPV Specimen: Cervical/Endocervical Screening or Diagnostic: Screening [facility] 01-19-2024 Note Specimen Description: Liquid Prep w/ HPV Specimen: Cervical/Endocervical Screening or Diagnostic: Screening [facility] 01-19-2024 Note Specimen Description: Liquid Prep w/ HPV Specimen: Cervical/Endocervical Screening or Diagnostic: Screening [facility] 01-19-2024 Note Specimen Description: Liquid Prep w/ HPV Specimen: Cervical/Endocervical Screening or Diagnostic: Screening [facility] 04-07-2023 Note. MICRO - Microbiology PROCEDURE: Culture Tissue [*1] SOURCE: Cellulitis BODY SITE: Groin COLLECTED DATE/TIME: 05/05/2022 16:39 EDT RECEIVED DATE/TIME: 05/06/2022 15:44 EDT START DATE/TIME: 05/06/2022 15:45 EDT FREE TEXT SOURCE: recd an aerobic swab with no tissue stuffed inside. specimen is most likely a wound culture. since it came from [place] i was unsure if could reorder, so here it is. FINAL REPORTS Final Report [] Verified Date/Time/Personnel: 05/12/2022 14:10 EDT Light Group A Beta Hemolytic Strep (Strep pyogenes) Few Staphylococcus aureus Few Campylobacter ureolyticus Beta-Lactamase: Negative This organism causes a reportable disease. Infection Control has been notified. Susceptibility testing on anaerobic bacteria not done. Many technical and interpretive difficulties are associated with this testing and in many cases antimicrobial therapy is used as an adjunct to primary surgical management. Please contact Microbiology with any questions ([phone]). Few normal skin nay present Sensitivity testing not indicated. PRELIMINARY REPORTS Preliminary Report [] Verified Date/Time/Personnel: 05/10/2022 09:26 EDT Light Group A Beta Hemolytic Strep (Strep pyogenes) Few Staphylococcus aureus Few normal skin nay present Sensitivity testing not indicated. No anaerobes isolated to date. Preliminary Report [] Verified Date/Time/Personnel: 05/09/2022 09:33 EDT Light Group A Beta Hemolytic Strep (Strep pyogenes) Few Staphylococcus aureus ALIX to follow No anaerobes isolated to date. Preliminary Report [] Verified Date/Time/Personnel: 05/08/2022 09:49 EDT Light Group A Beta Hemolytic Strep (Strep pyogenes) ALIX to follow No anaerobes isolated to date. Preliminary Report [] Verified Date/Time/Personnel: 05/07/2022 08:28 EDT Culture results pending. STAINS GS [] Verified Date/Time/Personnel: 05/07/2022 01:20 EDT 2+ Gram Positive Cocci MICRO - Microbiology SUSCEPTIBILITY RESULTS Group A Beta Hemolytic Strep (Strep pyogenes) Antibiotic ALIX Dilut ALIX Inter Azithromycin <=0.25 Susceptible Cefotaxime <=0.25 Susceptible Clindamycin <=0.06 Susceptible Penicillin <=0.03 Susceptible Staphylococcus aureus Antibiotic ALIX Dilut ALIX Inter Ampicillin/ <=8/4 Susceptible Sulbactam Azithromycin <=2 Susceptible Cefepime <=4 Susceptible Cefotaxime <=8 Susceptible Ceftaroline <=0.5 Susceptible Ceftriaxone <=4 Susceptible Ciprofloxacin <=1 Susceptible Clindamycin <=0.25 Susceptible Erythromycin <=0.25 Susceptible Imipenem <=4 Susceptible Levofloxacin <=1 Susceptible Meropenem <=2 Susceptible Oxacillin <=0.25 Susceptible Penicillin <=0.03 Susceptible Piperacillin/ <=8 Susceptible Tazobactam Tetracycline <=4 Susceptible Trimethoprim/ <=0.5/9.5 Susceptible Sulfa Vancomycin 1 Susceptible Performing Locations *1: This test was performed at: [address], [address] [place] [address])05-03-2022 Note. MICRO - Microbiology PROCEDURE: Urine Culture [*1] SOURCE: Urine, Clean Catch BODY SITE: COLLECTED DATE/TIME: 05/01/2022 15:57 EDT RECEIVED DATE/TIME: 05/01/2022 21:15 EDT START DATE/TIME: 05/01/2022 21:15 EDT FREE TEXT SOURCE: FINAL REPORTS Final Report [] Verified Date/Time/Personnel: 05/03/2022 08:16 EDT 10,000 - 50,000 cfu/ml Multiple bacterial morphotypes present. Probable Contamination. Suggest recollection if clinically indicated. PRELIMINARY REPORTS Preliminary Report [] Verified Date/Time/Personnel: 05/02/2022 09:16 EDT Culture results pending. Performing Locations *1: This test was performed at: [address], [address] [place] [address])Evaluation + Plan note Future Appointments Appointment Date:03/21/2021 04:15:00 PM Scheduled Provider:AYLA SIMPSON MD Location:[facility] Appointment Type: OV Follow Up [facility] Evaluation + Plan note Future Appointments Appointment Date:07/18/2021 03:00:00 PM Scheduled Provider:AYLA SIMPSON MD Location:[facility] Appointment Type:PC OV [facility] Evaluation + Plan note Future Appointments Appointment Date:05/05/2022 03:00:00 PM Scheduled Provider:SHRUTHI BOND DO Location:[facility] Appointment Type:PC OV [facility] Evaluation + Plan note Future Appointments Appointment Date:05/12/2022 03:30:00 PM Scheduled Provider:SHRUTHI BOND DO Location:[facility] Appointment Type:PC OV Appointment Date:06/19/2022 02:30:00 PM Scheduled Provider:SHRUTHI BOND DO Location:[facility] Appointment Type:PC OV Future Scheduled Tests Laboratory* Thyroid Antibodies 05/05/22 * Thyroid Stimulating Hormone 05/05/22 * Free T4 05/05/22 * A1C Hemoglobin 05/05/22 * Complete Blood Count 05/05/22 * Free T3 05/05/22 * Lipid Profile 05/05/22 * Albumin/Creatinine Ratio, Random Urine 05/05/22 * Vitamin D Level 05/05/22 * Complete Metabolic Panel 05/05/22 * anti-Thyroid Peroxidase 05/05/22 [facility] Evaluation + Plan note Future Appointments Appointment Date:06/19/2022 02:30:00 PM Scheduled Provider:SHRUTHI BOND DO Location:[facility] Appointment Type:PC OV Future Scheduled Tests Laboratory* Albumin/Creatinine Ratio, Random Urine 05/05/22 [facility] Evaluation + Plan note Future Appointments Appointment Date:03/27/2023 01:30:00 PM Scheduled Provider:ESHA HAIDER MD Location:[facility] Appointment Type:WH OV Appointment Date:04/02/2023 01:30:00 PM Scheduled Provider:SHRUTHI BOND DO Location:[facility] Appointment Type:PC OV Appointment Date:06/18/2023 03:00:00 PM Scheduled Provider:SHRUTHI BOND DO Location:[facility] Appointment Type:PC Wellness Medicare Future Scheduled Tests Laboratory* LDL-Cholesterol, Direct 06/08/23 * Ferritin 12/08/22 * Magnesium Level 06/08/23 * Urinalysis 02/20/23 * Thyroid Stimulating Hormone 06/08/23 * Free T4 06/08/23 * Urine Culture 02/20/23 * A1C Hemoglobin 06/08/23 * Complete Blood Count 06/08/23 * Lipid Profile 06/08/23 * Iron Studies 12/08/22 * Albumin/Creatinine Ratio, Random Urine 06/08/23 * Albumin/Creatinine Ratio, Random Urine 05/05/22 * Vitamin D Level 06/08/23 * Complete Metabolic Panel 06/08/23 Radiology* MA Mammo Screening Bilateral w/ Ronen 12/08/22 * BD Bone Density DEXA Axial Skeleton 12/08/22 * CT Thorax w/ Contrast 01/02/23 [facility] course Narrative No data available for this section [facility] Discharge instructions No data available for this section [facility] Progress note No data available for this section [facility] Summary Purpose Family History No Family History Records Found Advance Directives No Advanced Directives Records Found Additional Source Comments Care Team (unrecognized sect ion and content) Personnel Name: AYLA SIMPSON MD Address: [address] [place] [address] Care Team Personnel Name: SHRUTHI BOND DO Position: P4 Physician - Primary Care Member Role: Primary Care Physician Address: Address: [address] [place] [address] Care Team Related Persons Name: EMILY ZHAO Care Team Personnel Name: SHRUTHI BOND DO Position: P4 Physician - Primary Care Member Role: Primary Care Physician Address: Address: [address] [place] [address] Care Team Related Persons Name: EMILY ZHAO Francie Care Team Personnel Name: SHRUTHI BOND DO Position: P4 Physician - Primary Care Member Role: Primary Care Physician Address: Address: [address] [place] [address]- Care Team Related Persons Name: EMILY ZHAO Francie Care Team Personnel Name: SHRUTHI BOND DO Position: P4 Physician - Primary Care Member Role: Primary Care Physician Address: Address: [address] [place] [address] Care Team Related Persons Name: PAVEL EMILY Marmolejo Care Team Personnel Name: SHRUTHI BOND DO Position: P4 Physician - Primary Care Member Role: Primary Care Physician Address: Address: [address] [place] [address] Care Team Related Persons Name: PAVEL EMILY Marmolejo Care Team Personnel Name: SHRUTHI BOND DO Position: P4 Physician - Primary Care Member Role: Primary Care Physician Address: Address: [address] [place] [address] Care Team Related Persons Name: PAVEL EMILY Francie INFORMATION SOURCE (unrecogn ized section and content) FOR RECORDS PERTAINING TO PATIENTS WHO ARE OR HAVE BEEN ENROLLED IN A CHEMICAL DEPENDENCY/SUBSTANCEABUSE PROGRAM, SOME INFORMATION MAY BE OMITTED. This clinical summary was aggregated from multiple sources. Caution should be exercised in using it in the provision of clinical care. This summary normalizes information from multiple sources, and as a consequence, information in this document may materially change the coding, format and clinical context of patient data. In addition, data may be omitted in some cases. CLINICAL DECISIONS SHOULD BE BASED ON THE PRIMARY CLINICAL RECORDS. [facility] [employer] provides no warranty or guarantee of the accuracy or completeness of information in this document.
== END | disposition home or self-care (01) ==
LOC: LAB 14:33
DX: Z00.00 Encounter for general adult medical examination without abnormal findings (principal); M06.9 Rheumatoid arthritis, unspecified; J44.9 Chronic obstructive pulmonary disease, unspecified; I10 Essential (primary) hypertension; R35.0 Frequency of micturition; N81.4 Uterovaginal prolapse, unspecified
CPT/HCPCS: 36415; 80053

== ENCOUNTER 2023-06-18 17:05 | Emergency (ER) | payer MEDICARE, BC, SELFPAY ==
[2023-06-18 17:06] VITALS: BP 115/97; PULSE 85; RESP 18; TEMP 36.4; O2SAT 97
--- NOTE | 2023-06-18 17:49 | ED.VIS.DYS ---
HPI History of Present Illness Chief Complaint: Cold Sx Narrative Narrative: 68-year-old female past medical history of COPD, wears 2 L of nasal cannula oxygen at home, recently seen by the nurse practitioner at Dr. Maza's office with pulmonology, presents with increasing shortness of breath. She states that she feels shortness of breath, and has been coughing with runny nose for about a week. No fevers or chills. She has not smoked cigarettes over the last few days. She states that she used to do low-dose steroids, but gained weight was up to 300 pounds. She can tolerate them and short burst. She states that she has had a generalized weakness and increasing shortness of breath over the last week. She has had runny nose as well. [facility] Medical History Anal squamous cell carcinoma Anxiety and depression COPD (chronic obstructive pulmonary disease) Elevated troponin GERD (gastroesophageal reflux disease) Hypertension Hypothyroidism Nonobstructive atherosclerosis of coronary artery Rheumatoid arthritis Home Medications hydrocodone-acetaminophen 5-325mg 5mg-325mg 1 tab PO Q6H PRN PRN Pain 07/08/15 [History Last Taken 07/01/15] naproxen sodium 220 mg tablet (Aleve) 440 mg PO DAILY Pain 07/08/15 [History Last Taken 01/15/21 21:00] levothyroxine 25 mcg tablet 75 mcg PO DAILY thyroid 04/11/17 [History Last Taken 12/29/22] pantoprazole 40 mg tablet,delayed release 40 mg PO DAILY reflux 04/23/19 [History Last Taken 12/29/22] sertraline 100 mg tablet 200 mg PO DAILY anxiety and depression 01/18/21 [History Last Taken 12/29/22] irbesartan 300 mg tablet 300 mg PO DAILY 12/30/22 [History Last Taken 12/29/22] albuterol sulfate 90 mcg/actuation aerosol inhaler (Ventolin HFA) 2 puff inhalation Q4H PRN PRN Shortness of breath, wheezing ##3 04/04/23 [Rx Last Taken Unknown] fluticasone fur. 200 mcg-umeclid 62.5 mcg-vilant 25 mcg inhalat.powder (Trelegy Ellipta) 1 inh inhalation DAILY #3 ea 05/29/23 [Rx Last Taken Unknown] prednisone 20 mg tablet 40 mg (2 x 20 mg) PO DAILY #14 tabs 06/18/23 [Rx Last Taken Unknown] Allergy/AdvReac Type Severity Reaction Status Date / Time cefadroxil hydrate Allergy Itching Verified 06/18/23 17:08 [From [facility]] Surgical History H/O section H/O hysterectomy with oophorectomy History of left heart catheterization (01/17/21) Hx of appendectomy Social History household members: none Smoking Status: Current every day smoker tobacco type: cigarettes Tobacco: How many years used: 50 alcohol intake: current alcohol intake frequency: holidays/special occasions only substance use type: does not use and marijuana ROS ROS ED ROS Narrative Constitutional: No fever, no chills. Generalized weakness. HEENT: No sore throat. No neck pain. No loss of vision. Positive rhinorrhea. Cardiovascular: No chest pain. No palpitations. No pedal edema. Respiratory: Positive cough, increasing shortness of breath. Abdominal: No abdominal pain. No nausea. No vomiting. Genitourinary: Occasional dysuria. No hematuria. Musculoskeletal: No myalgias. No arthralgias. Neurologic: No headaches. No dizziness. No lightheadedness. Skin: No rash. No change in color. Psychiatric: No depression. No anxiety. EXAM Physical Exam Narrative Exam Narrative: Afebrile. Vital signs noted. HEENT: Normocephalic. Atraumatic. PERRL, EOMI. Neck soft and supple. No point tenderness or step off. Cardiovascular: Regular rate and rhythm. No murmurs, rubs, or gallops appreciated. Respiratory: No tachypnea. Decreased breath sounds bilateral bases with expiratory wheeze right greater than left. Gastrointestinal: Abdomen soft, nontender, with normoactive bowel sounds. No rebound or guarding. Neurological: Awake. Alert. Nonfocal, nonlateralizing. Skin: No rash. Normal color. No pallor. Musculoskeletal: No pedal edema. Full range of motion extremities. Const Vital Signs: 06/18/23 17:06 06/18/23 18:19 06/18/23 18:29 Temperature 97.6 F L 96.9 F L Temperature Source Temporal Temporal Pulse Rate 85 93 87 Respiratory Rate 18 16 23 H Respiratory Effort Respiratory Pattern Normal Blood Pressure 115/97 H 131/101 H Blood Pressure Mean 103 111 Pulse Ox 97 96 Oxygen Delivery Method Nasal Cannula Nasal Cannula Oxygen Flow Rate (L/min) 2 06/18/23 18:32 06/18/23 18:32 06/18/23 18:48 Temperature 96.9 F L Temperature Source Temporal Pulse Rate 78 Respiratory Rate 19 H Respiratory Effort Normal Non-Labored Respiratory Pattern Tachypnea Blood Pressure 101/74 Blood Pressure Mean 83 Pulse Ox 96 96 Oxygen Delivery Method Nasal Cannula Oxygen Flow Rate (L/min) 2 2 MDM MDM MDM Narrative Medical decision making narrative: In the differential diagnosis is COPD exacerbation versus viral upper respiratory infection versus chronic bronchitis versus pneumonia versus pneumothorax. I have low suspicion for pneumothorax as the history and physical does not really support this. Her current pulse ox is 97% on room air without evidence of hypoxia. She is not tachycardic. I have low suspicion for pulmonary embolism. She will be given a DuoNeb aerosolized treatment and 60 mg loading dose of prednisone. Chest x-ray and wall view will be obtained along with basic laboratory work and EKG. EKG was obtained and interpreted by myself independently as normal sinus rhythm at 87 bpm without ectopy or acute ST changes. No STEMI. I reviewed her laboratory work and she has normal white count of 10.3, hemoglobin stable 11.5, platelet count TNP. Her electrolyte panel shows sodium slightly low at 135 with a BUN of 12 and a creatinine of 0.67, I do not feel she is dehydrated causing her weakness, glucose is appropriately elevated at 125 with an anion gap low at 4. High-sensitivity troponin is 6. She states that she has been sick for a week. I do not feel she needs serial enzymes. Urinalysis is negative for infection. Respiratory swab is also negative for COVID, influenza, and RSV. Chest x-ray and 1 view interpreted by myself independently shows no evidence of an acute process, no consolidation or pneumothorax. I do not feel she needs antibiotics. She had been given her loading dose of steroid and a prescription was written for burst of 40 mg for the next week. Upon repeat examination after DuoNeb aerosolized treatment she feels markedly improved. She even had her oxygen off and was ranging from 90 to 92% on room air. At this point in time, I feel she can be discharged safely home with follow-up. She feels improved and I had discussed observation with her, but she declined. She will follow-up with her soap press feeder and inquire about nebulizer treatments. In the meantime she will use her rescue inhaler every 4-6 hours 2 puffs inhaled as needed. She will use [id number] medications as needed as well. Return instructions to the emergency department were reviewed. Disposition is discharged in stable condition. History & Record Review Additional record(s) reviewed:: Prior labs Lab Data Attestation: I reviewed the patient's lab results. Labs: Laboratory Results - last 24 hr 06/18/23 06/18/23 17:58 18:43 WBC 10.3 RBC 4.37 Hgb 11.5 L Hct 37.4 MCV 85.6 MCH 26.3 L MCHC 30.7 L RDW Std Deviation 43.8 RDW Coeff of Kanika 14.0 Plt Count TNP MPV 10.5 Immature Gran % (Auto) 1.400 H Neut % (Auto) 82.9 H Lymph % (Auto) 9.4 L [place] % (Auto) 4.8 Eos % (Auto) 1.1 Baso % (Auto) 0.4 Absolute Neuts (auto) 8.5 H Absolute Lymphs (auto) 0.97 Nucleated RBC % 0 Differential Comment Platelet Estimate ADEQUATE Sodium 135 L Potassium 4.3 Chloride 101 Carbon Dioxide 30.0 Anion Gap 4 L BUN 12 Creatinine 0.67 Est GFR (MDRD) Af Amer 113 Est GFR (MDRD) Non-Af 93 BUN/Creatinine Ratio 18.0 Glucose 125 H Calcium 9.4 Troponin I High Sens 6 Urine Color Yellow Urine Clarity Clear Urine pH 6.0 Ur Specific [place] 1.015 Urine Protein 30 H Urine Glucose (UA) Normal Urine Ketones 5 H Urine Occult Blood 50 H Urine Nitrite Negative Urine Bilirubin Negative Urine Urobilinogen 4 H Ur Leukocyte Esterase 25 H Urine RBC 0-5 SEEN Urine WBC 0 SEEN Ur Squamous Epith Cells 0 SEEN Urine Bacteria 0 SEEN Urine Mucus 1+ Discharge Plan Triage Chief Complaint: Cold Sx ED Provider: Danilo Rubio Dx/Rx/DC Orders Clinical Impression: URI (upper respiratory infection), COPD exacerbation Instructions: ED COPD Flare, ED URI, Viral W/ Wheezing (Adult) Prescriptions: New prednisone 20 mg tablet 40 mg PO DAILY Qty: 14 0RF No Action naproxen sodium [Aleve] 220 MG tablet 440 mg PO DAILY Patient Comments: PAIN hydrocodone-acetaminophen 1 TABLET tablet 1 tab PO Q6H PRN PRN (Reason: Pain) Patient Comments: PAIN levothyroxine 25 MCG tablet 75 mcg PO DAILY pantoprazole 40 MG tablet 40 mg PO DAILY sertraline 100 mg tablet 200 mg PO DAILY Patient Comments: TAKE 2 TABLETS DAILY irbesartan 300 mg tablet 300 mg PO DAILY Patient Comments: take 1 tablet by mouth once daily albuterol sulfate [Ventolin HFA] 90 mcg/actuation HFA aerosol inhaler 2 puff inhalation Q4H PRN PRN (Reason: Shortness of breath, wheezing) Qty: 3 3RF Trelegy Ellipta 200-62.5-25 mcg blister with device 1 inh inhalation DAILY Qty: 3 3RF Primary Care Provider: Blade Tan Referrals: Flaco Tse DO [Med Staff - Active Staff] - 3-5 Days Blade Tan DO [Primary Care Provider] - Activity Restrictions/Additional Instructions: You had a DuoNeb aerosolized treatment today which helped you. You may want to ask your soap press feeder about nebulizer treatments for home use. In the meantime, use your rescue inhaler every 4-6 hours 2 puffs inhaled along with taking the burst of prednisone for the next 7 days. Disposition Disposition: Home, Self Care
[2023-06-18 18:17] LABS: Absolute Lymphocyte Count 0.97 X10^3/uL (0.83-4.51); Absolute Neutrophil Count 8.5 X10^3/uL (2.0-7.7); Basophil# 0.04 X10^3/uL; Basophil% 0.4 % (0-1); Eosinophil# 0.11 X10^3/uL; Eosinophils% 1.1 % (0-5); Hematocrit 37.4 % (37-47); Hemoglobin 11.5 g/dL (12.0-15.0); Lymphocyte # 0.97 X10^3/ul (0.83-4.51); Lymphocyte % 9.4 % (19-41); Mean Corp Hgb Conc 30.7 g/dL (32-36); Mean Corpuscular Hgb 26.3 pg (27.0-32.0); Mean Corpuscular Volume 85.6 fL (81-99); Mean Platelet Vol. 10.5 fl (6.2-12.0); Monocyte# 0.49 X10^3/uL; Monocyte% 4.8 % (0-10); NRBC Flagged by Analyzer 0 % (0-5); Neutrophil # 8.52 X10^3/uL (2.7-7.7); Neutrophil % 82.9 % (47-70); POSITIVE COUNT YES; RBC Distribution Width SD 43.8 fl (35.1-43.9); Red Blood Count 4.37 M/mm3 (4.2-5.4); White Blood Count 10.3 K/mm3 (4.4-11.0)
[2023-06-18 18:19] VITALS: PULSE 93; RESP 16
[2023-06-18] MEDS: Ipratropium/Albuterol Sulfate 3 ML AMPUL.NEB INHALATION (18:19)
[2023-06-18 18:25] LABS: Anion Gap 4 (5-15); BUN 12 mg/dL (7-18); Calcium,Total 9.4 mg/dL (8.5-10.1); Chloride 101 mmol/L (98-107); Creatinine, Serum 0.67 mg/dL (0.55-1.02); EST Glomerular Filtration Rate 93 mL/min (>60); Est Glom Filt Rate - Afr Amer 113 mL/min (>60); Glucose 125 mg/dL (74-106); Potassium 4.3 mmol/L (3.5-5.1); Sodium Level 135 mmol/L (136-145); Troponin-I HS 6 pg/mL (3.0-54.0)
[2023-06-18] MEDS: predniSONE 20 MG Tablet 60 MG PO (18:27)
--- NOTE | 2023-06-18 18:28 | RAD_ITS ---
INDICATION: Shortness of breath EXAMINATION/TECHNIQUE: X-RAY - XR Chest 1 View COMPARISON: 01/16/2021. FINDINGS: Increased density in the peripheral left lung base. Tortuous and calcified thoracic aorta. The heart is not enlarged. No pleural effusion or pneumothorax. Degenerative changes of the thoracic spine. RAD/Chest 1 View (Portable) IMPRESSION: Increased density in the peripheral left lung base is indeterminate. Recommend obtaining additional lateral view radiograph. Electronically Signed: Diogo Porras MD at 20:08 EDT ,
[2023-06-18 18:29] VITALS: BP 131/101; PULSE 87; RESP 23; TEMP 36.1; O2SAT 96
[2023-06-18 18:31] VITALS: BMI 36.1
[2023-06-18 18:32] VITALS: O2SAT 96
[2023-06-18 18:38] LABS: Platelet Estimate ADEQUATE (ADEQ)
[2023-06-18 18:48] VITALS: BP 101/74; PULSE 78; RESP 19; TEMP 36.1; O2SAT 96
[2023-06-18 18:51] LABS: Bacteria 0 SEEN /hpf (None Seen); Squamous Epithelial Cells - UA 0 SEEN /hpf (5-10); White Blood Cells 0 SEEN /hpf (0-5)
[2023-06-18 18:56] LABS: Color, Urine Yellow (Yellow); Glucose, Dipstick Normal (Normal); Ketone-Dipstick 5 mg/dl (Negative); Leukocyte Esterase-Dipstick 25 /ul (Negative); Nitrite-Dipstick Negative (Negative); Occult Blood-Urine 50 /ul (Negative); Protein-Dipstick 30 mg/dl (Negative); Specific Gravity, Urine 1.015 (1.002-1.030); Urine Bilirubin Dipstick Negative (Negative); Urine Clarity Clear (Clear); Urine Urobilinogen 4 mg/dl (Normal)
[2023-06-18 19:04] LABS: Mucous, Urine 1+ /hpf (<or=2+); Red Blood Cells-Urine 0-5 SEEN /hpf (0-5)
[2023-06-18 20:32] VITALS: BP 107/76; PULSE 76; RESP 20; TEMP 36.3; O2SAT 95
== END 2023-06-18 20:33 | disposition home or self-care (01) ==
PROVIDERS: Emergency Provider Emergency Medicine; Visit Provider Emergency Medicine
DX: J06.9 Acute upper respiratory infection, unspecified (principal); J44.1 Chronic obstructive pulmonary disease with (acute) exacerbation; F17.210 Nicotine dependence, cigarettes, uncomplicated; Z99.81 Dependence on supplemental oxygen; E03.9 Hypothyroidism, unspecified; K21.9 Gastro-esophageal reflux disease without esophagitis; F41.8 Other specified anxiety disorders; Z90.710 Acquired absence of both cervix and uterus; Z90.49 Acquired absence of other specified parts of digestive tract
CPT/HCPCS: 71045; 80048; 81001; 84484; 85025; 87631; 93005; 94640; 99283; A4216

== ENCOUNTER → 2024-04-25 | Outpatient (CLI) | payer MEDICARE, BC, SELFPAY ==
--- NOTE | 2024-04-25 14:09 | CT_ITS ---
PROCEDURE: LOW DOSE CT LUNG SCREENING 04/25/2024 REASON FOR EXAM: SMOKING HISTORY Current smoker. Patient has smoked 1 pack per day for 52 years. COPD. History of anal cancer. TECHNIQUE: Low Dose CT Lung screening without contrast. Coronal and Sagittal reconstruction series were provided. One or more dose reduction techniques were used (e.g., Automated exposure control, adjustment of the mA and/or kV according to patient size, use of iterative reconstruction technique). REFERENCE LINK: [facility] Lung-RADS RADIATION DOSE SUMMARY: CTDlvol: 4.02 mGy DLP: 139.44 mGycm COMPARISON: Comparison is made with prior study dated March 29, 2023. FINDINGS: PULMONARY NODULES: (Only nodules >3mm are reported) Nodules described below are on series 1 unless otherwise specified. Pulmonary Nodules: Hardware:None Lymph Nodes:None Heart and Vasculature:Coronary artery calcifications are noted.Atherosclerotic calcifications of the thoracic aorta. Thoracic aorta and pulmonary arteries have normal contours; noncontrast technique limits evaluation. Coronary Artery Calcifications: Present Lungs and Airways: Advanced emphysematous changes are present. Focal irregular nodular density in the posterior aspect of the lingular segment of the left upper lobe measuring 1.4 cm in the lateral aspect as seen on axial image number 156 this has improved as compared to prior study. Pleura:Unremarkable Upper Abdomen:Unremarkable Bones:Degenerative changes of the thoracic spine. CT/Low Dose CT Lung Screening IMPRESSION: Lung-RADS Category: 3 PROBABLY BENIGN (BASED ON IMAGING FEATURES OR BEHAVIOR). RECOMMEND 6 MONTH LDCT. Other Significant Findings: None. Reading Location: [place] [address]
== END | disposition home or self-care (01) ==
PROVIDERS: Referring Provider Nurse Practitioner Acute Care; Visit Provider Nurse Practitioner Acute Care
DX: Z12.2 Encounter for screening for malignant neoplasm of respiratory organs (principal); F17.210 Nicotine dependence, cigarettes, uncomplicated
CPT/HCPCS: 71271

== ENCOUNTER → 2024-07-10 | Outpatient (CLI) | payer MEDICARE, BC, SELFPAY ==
--- OUTSIDE RECORDS SUMMARY | 2024-07-10 21:18 | XMS RPT_ITS | CCD ---
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 Ayla Mane Primary Care Provider Dr. Ayla Mane Referring Provider [phone] Dr. Romain Maza Attending Provider Dr. Romain Maza Referring Provider Dr. Romain Maza Other Provider Dr. Flaco Tse Attending Provider [phone] BLADE BOND DO Primary Care Physician Dr. Blade Bond Primary Care Provider [phone] Dr. Blade Bond Referring Provider [phone] Torito DIELECTRIC PRESS OPERATOR, DIELECTRIC PRESS OPERATOR-C Glendy Attending Provider [phone] Dr. Blade Bond Primary Care Provider [phone] Dr. Blade Bond Referring Provider [phone] Dr. Romain Maza Attending Provider [phone] Dr. Blade Bond Primary Care Provider [phone] Dr. Blade Bond Referring Provider [phone] Torito DIELECTRIC PRESS OPERATOR DIELECTRIC PRESS OPERATOR-C Glendy Attending Provider [phone] BLADE BOND DO Attending Unavailable BLADE BOND DO Primary Care Unavailable TIM HUSAIN Attending Unavailable BLADE BOND DO Primary Care Unavailable DR PATRICIA STEVENS MD Attending UnavailBLADE Parker DO Primary Care Unavailable BLADE BOND DO Attending Unavailable BLADE BOND DO Primary Care Unavailable ESHA HAIDER MD Attending Unavailable BOND DO, BLADE E Primary Care Unavailable BOND DO, BLADE E Attending Unavailable BOND DO, BLADE E Primary Care Unavailable ESHA HAIDER MD Attending Unavailable BOND DO, BLADE E Primary Care Unavailable BOND DO, BLADE E Attending Unavailable BOND DO, BLADE E Primary Care Unavailable ESHA HAIDER MD Attending Unavailable BOND DO, BLADE E Primary Care Unavailable Dr. Blade Bond DO Primary Care Provider [phone] Torito DIELECTRIC PRESS OPERATOR-C, Glendy Attending Provider Torito DIELECTRIC PRESS OPERATOR-C, Glendy Referring Provider Blade Bond Referring Unavailable Ugarte DIELECTRIC PRESS OPERATOR, Glendy Attending Unavailable Bond, Blade Primary Care Unavailable Ugarte DIELECTRIC PRESS OPERATOR, Glendy Attending Unavailable Ugarte DIELECTRIC PRESS OPERATOR, Glendy Referring Unavailable Bond, Blade Primary Care Unavailable Misael Yates Attending Unavailable Bond, Blade Primary Care Unavailable Ugarte DIELECTRIC PRESS OPERATOR, Glendy Attending Unavailable Ugarte DIELECTRIC PRESS OPERATOR, Glendy Referring Unavailable Bond, Blade Primary Care Unavailable Ugarte DIELECTRIC PRESS OPERATOR, Glendy Attending Unavailable Bond, Blade Primary Care Unavailable Bond, Blade Referring Unavailable BOND DO, BLADE E Primary Care Unavailable BOND DO, BLADE E Attending Unavailable BOND DO, BLADE E Primary Care Unavailable BOND DO, BLADE E Attending Unavailable BOND DO, BLADE E Primary Care Unavailable BOND DO, BLADE E Attending Unavailable BOND DO, BLADE E Attending Unavailable BOND DO, BLADE E Primary Care Unavailable Allergies Allergy Classification Reported Allergen(s) Allergy Type Date of Onset Reaction(s) Facility (13 sources) Cefadroxil; Translations: [cefadroxil] Drug Allergy swelling, hives [facility] (3 sources) Cefadroxil; Translations: [cefadroxil hydrate] Drug Allergy 2 Itching [facility] (1 source) denosumab; Translations: [denosumab] Drug Allergy Hip pain (finding) [facility] [place] Medications Current Medications Medication Drug Class(es) Dates Sig (Normalized) Sig (Original) [id number] 200 actuat albuterol 0.09 mg/actuat metered dose inhaler (20 sources) beta2-Adrenergic Agonist Start: 03-17-2021 End: 11-29-2023 Albuterol Sulfate (Ventolin Hfa) 90 mcg/actuation HFA aerosol inhaler Active 2 NMA INHALATION EVERY 4 HOURS NEEDED as needed for Shortness of breath, wheezing November 29, 2023 2:32pm Start: 03-17-2021 End: 04-04-2023 take 1 puff(s) by inhalation every four hours as needed Albuterol Sulfate (Ventolin Hfa) 90 mcg/actuation HFA aerosol inhaler Active 2 PUFF INHALATION EVERY 4 HOURS NEEDED April 04, 2023 4:43pm Start: 03-17-2021 take 1 puff(s) by in halation every four hours as needed Albuterol Sulfate (Ventolin Hfa) 90 mcg/actuation HFA aerosol inhaler Active 2 PUFF INHALATION EVERY 4 HOURS NEEDED 3 March 17, 2021 2:15pm Start: 08-18-2019 take 1 dose by inhal ation every six hours albuterol 2.5 mg/3 mL (0.083%) inhalation solution Dose : 2.5 mg = 3 mL, Inhalation, q6hr, Dispense 360 ampoules for each 3-month.. Thank you, # 1,080 mL, 3 Refill(s), Pharmacy: [facility] #[id number], 166, cm, 08/18/19 15:21:00 EDT, Height, kg, 08/18/19 15:18:00 EDT, Dosing Weight Start Date: 08/18/19 Status: Ordered Start: 08-18-2019 take 1 dose by inhal ation every six hours albuterol 2.5 mg/3 mL (0.083%) inhalation solution Dose : 2.5 mg = 3 mL, Inhalation, q6hr, Dispense 360 ampoules for each 3-month.. Thank you, # 1,080 mL, 3 Refill(s), Pharmacy: [facility] #30, 166, cm, 08/18/19 15:21:00 EDT, Height, kg, 08/18/19 15:18:00 EDT, Dosing Weight Start Date: 08/18/19 Status: Ordered Start: 07-07-2019 take 2 puff(s) by in halation every four hours as needed for wheezing ProAir HFA MDI (90 mcg/inh) inhalation aerosol 2 puff(s), Inhalation, q4h, PRN as needed for wheezing, # 3 EA, 4 Refill(s), Pharmacy: [facility], 166, cm, 07/07/19 15:28:00 EDT, Height, kg, 07/07/19 15:28:00 EDT, Dosing Weight Start Date: 07/07/19 Status: Ordered Start: 07-07-2019 take 2 puff(s) by in halation every four hours as needed for wheezing ProAir HFA MDI (90 mcg/inh) inhalation aerosol 2 puff(s), Inhalation, q4h, PRN as needed for wheezing, # 3 EA, 4 Refill(s), Pharmacy: [facility], 166, cm, 07/07/19 15:28:00 EDT, Height, kg, 07/07/19 15:28:00 EDT, Dosing Weight Start Date: 07/07/19 Status: Ordered Start: 01-21-2016 End: 03-17-2021 take 1 puff(s) by inhalation every four hours as needed Albuterol Sulfate (Ventolin Hfa) 1 INHALER inhaler Discontinued 2 PUFF INHALATION EVERY 4 HOURS NEEDED 3 January 21, 2016 12:03pm March 17, 2021 2:16pm Start: 01-21-2016 End: 03-17-2021 Albuterol Sulfate (Ventolin Hfa) 1 INHALER inhaler Discontinued 2 NMA INHALATION EVERY 4 HOURS NEEDED as needed for Shortness of breath, wheezing January 21, 2016 1:00am March 17, 2021 2:16pm Start: 01-21-2016 End: 03-17-2021 take 1 puff(s) by inhalation every four hours as needed Albuterol Sulfate (Ventolin Hfa) 1 INHALER inhaler Discontinued 2 PUFF INHALATION EVERY 4 HOURS NEEDED January 21, 2016 12:00am March 17, 2021 1:16pm Start: 01-21-2016 End: 03-17-2021 take 1 puff(s) by inhalation every four hours as needed Albuterol Sulfate (Ventolin Hfa) 1 INHALER inhaler Discontinued 2 PUFF INHALATION EVERY 4 HOURS NEEDED January 21, 2016 1:00am March 17, 2021 2:16pm aspirin 81 mg delayed release oral tablet (3 sources) Platelet Aggregation Inhibitor, Nonsteroidal Anti-inflammatory Drug Start: 11-29-2023 take 1 tablet by mouth once daily Aspirin 81 mg tablet,delayed release (DR/EC) Active 81 mg PO daily November 29, 2023 12:00am Start: 09-03-2023 aspirin 81 mg oral delayed release tablet Dose : 81 mg = 1 tab(s), Oral, qDay, # 90 tab(s), 0 Refill(s) Start Date: 09/03/23 Status: Ordered calcium citrate 1040 mg oral tablet (1 source) Start: 11-16-2023 calcium (as ca lcium citrate) 250 mg oral tablet Dose : 250 mg = 1 tab(s), Oral, BID, # 180 tab(s), 0 Refill(s) Start Date: 11/16/23 Status: Ordered cetirizine hydrochloride 10 mg oral tablet (14 sources) Histamine-1 Receptor Antagonist Start: 07-11-2022 Zyrtec 10 mg oral tablet Dose : 10 mg = 1 tab(s), Oral, qDay, # 90 tab(s), 3 Refill(s), [facility]acy: [facility] #[id number], 167.6, cm, 06/19/22 14:50:00 EDT, Height, kg, 06/19/22 14:50:00 EDT, Dosing Weight Start Date: 07/11/22 Status: Ordered Start: 04-04-2021 End: 03-30-2022 Zyrtec 10 mg oral tablet Dos e : 10 mg = 1 tab(s), Oral, qDay, # 90 tab(s), 3 Refill(s), Pharmacy: [facility], 166, cm, 12/20/21 14:29:00 EST, Height, kg, 12/20/21 14:29:00 EST, Dosing Weight Start Date: 03/14/22 Status: Ordered Start: 01-27-2020 End: 01-21-2021 Zyrtec 10 mg oral tablet Dos e : 10 mg = 1 tab(s), Oral, qDay, # 90 tab(s), 3 Refill(s), Pharmacy: [facility] #30, 166, cm, 08/18/19 15:21:00 EDT, Height, kg, 11/19/19 11:04:00 EDT, Dosing Weight Start Date: 01/27/20 Stop Date: 01/21/21 Status: Ordered Start: 04-11-2017 End: 05-29-2023 take 1 capsule by mouth once daily Cetirizine (Zyrtec) 10 MG capsule Discontinued 10 mg PO DAILY April 11, 2017 1:00am May 29, 2023 1:49pm Coricidin HBP Chest Congestion and Cough (3 sources) Start: 06-22-2023 Coricidin HBP Chest Congestion and Cough Oral, q4h, PRN as needed, 0 Refill(s) Start Date: 06/22/23 Status: Ordered DME MISCellaneous (3 sources) Start: 06-22-2023 DME MISCellane ous See Instructions, Neubulizer and supplies (mask, hosem tubing, etc), # 1 EA, 0 Refill(s), COPD exacerbation, 100.8 Start Date: 06/22/23 Status: Ordered doxycycline hyclate 100 mg oral capsule (15 sources) Tetracycline-cla ss Drug Start: 05-05-2022 End: 05-19-2022 doxycycline hyclate 100 mg oral capsule Dose : 100 mg = 1 cap(s), Oral, BID, X 14 day(s), # 28 cap(s), 0 Refill(s), 05/19/22 15:43:00 EDT, Pharmacy: [facility] #[id number], 167.6, cm, 05/05/22 15:01:00 EDT, Height, 106.2 Start Date: 05/05/22 Stop Date: 05/19/22 Status: Ordered Start: 06-26-2020 End: 01-19-2021 take 1 capsule by mouth twice daily Doxycycline Hyclate 100 mg capsule Discontinued 100 mg PO TWICE A DAY January 16, 2021 5:29pm January 18, 2021 11:43am estradiol 0.1 mg/ml vaginal cream (3 sources) Estrogen Start: 03-27-2023 estradiol 0.1 mg/g vaginal cream See Instructions, use pea size at bedtime for 2 wks, then twice a week. vaginal use., # 42.5 gram(s), 0 Refill(s), Pharmacy: [id number], Uterovaginal prolapse, incomplete Atrophic vaginitis, 166, cm, 03/27/23 13:31:00 EST, Height, kg, 03/27/23 13:31:00 EST, Dosing Weight Start Date: 03/27/23 Status: Ordered fluconazole 150 mg oral tablet (1 source) Azole Antifungal Start: 05-01-2022 End: 05-17-2022 fluconazole 150 mg oral tablet Dose : 150 mg = 1 tab(s), Oral, Every other day, Take 2 tablets on day 1 then take 1 tab by mouth until complete, X 8 day(s), # 4 tab(s), 1 Refill(s), 05/17/22 15:31:00 EDT, Pharmacy: [facility] #[id number], Candidiasis, cutaneous, 167.6, cm, 05/01/22 14:50:... Start Date: 05/01/22 Stop Date: 05/17/22 Status: Ordered Zaeaaagfvla-Egkemuiuv-F ilanter (20 sources) Start: 11-29-2023 Fluticasone-Um eclidin-Ashley anter (Trelegy Ellipta) 200-62.5-25 mcg blister with device Active 1 NMA INHALATION DAILY November 29, 2023 2:32pm Start: 05-29-2023 End: 11-29-2023 Artuavltioe-Zqhlvvmik-Bxuewt er (Trelegy Ellipta) 200-62.5-25 mcg blister with device Discontinued 1 NMA INHALATION DAILY May 29, 2023 2:44pm November 29, 2023 2:34pm Start: 05-29-2023 Fluticasone-Um eclidin-Vilanter (Trelegy Ellipta) 200-62.5-25 mcg blister with device Active 1 INH INHALATION DAILY May 29, 2023 2:44pm Start: 05-29-2023 End: 05-29-2023 Ifbfkmdxejo-Dydczrvyf-Ohlgrl er (Trelegy Ellipta) 200-62.5-25 mcg blister with device Discontinued 1 NMA INHALATION DAILY May 29, 2023 2:02pm May 29, 2023 2:44pm Start: 05-29-2023 End: 05-29-2023 Wlsfyrnqepb-Jmoygdrdu-Gxtzuy er (Trelegy Ellipta) 200-62.5-25 mcg blister with device Discontinued 1 INH INHALATION DAILY May 29, 2023 2:02pm May 29, 2023 2:44pm Start: 10-10-2022 End: 05-29-2023 Cbmfayhapjl-Hsecwrmkf-Fyvbmb er (Trelegy Ellipta) 200-62.5-25 mcg blister with device Discontinued 1 NMA INHALATION DAILY October 10, 2022 9:01am May 29, 2023 2:03pm Start: 10-10-2022 End: 05-29-2023 Yvpntzsbaln-Cgvdsczlq-Inijxb er (Trelegy Ellipta) 200-62.5-25 mcg blister with device Discontinued 1 INH INHALATION DAILY October 10, 2022 9:01am May 29, 2023 2:03pm Start: 10-10-2022 Fluticasone-Um eclidin-Vilanter (Trelegy Ellipta) 200-62.5-25 mcg blister with device Active 1 INH INHALATION DAILY October 10, 2022 8:01am Start: 05-26-2022 End: 10-10-2022 Rciksoogfrd-Rigtwfvcy-Cahnvx er (Trelegy Ellipta) 200-62.5-25 mcg blister with device Discontinued 1 NMA INHALATION DAILY May 26, 2022 2:01pm October 10, 2022 9:01am Start: 05-26-2022 End: 10-10-2022 Fkixvyyxgba-Owjsahgnt-Mwksgy er (Trelegy Ellipta) 200-62.5-25 mcg blister with device Discontinued 1 INH INHALATION DAILY May 26, 2022 2:01pm October 10, 2022 9:01am Start: 05-26-2022 End: 10-10-2022 Dhcbuynnduq-Hcxxdcsrn-Dtofck er (Trelegy Ellipta) 200-62.5-25 mcg blister with device Discontinued 1 INH INHALATION DAILY May 26, 2022 1:01pm October 10, 2022 8:01am Start: 05-26-2022 Fluticasone-Um eclidin-Vilanter (Trelegy Ellipta) 200-62.5-25 mcg blister with device Active 1 INH INHALATION DAILY May 26, 2022 2:01pm Start: 05-26-2022 End: 05-26-2022 Avlpafzrwkn-Jaovxkebr-Rbwksn er (Trelegy Ellipta) 200-62.5-25 mcg blister with device Discontinued 1 NMA INHALATION DAILY 60 May 26, 2022 1:44pm May 26, 2022 2:01pm Start: 05-26-2022 End: 05-26-2022 Naqqkwgaxvn-Vnytyrviz-Qkizek er (Trelegy Ellipta) 200-62.5-25 mcg blister with device Discontinued 1 INH INHALATION DAILY 60 May 26, 2022 12:44pm May 26, 2022 1:01pm Start: 05-26-2022 End: 05-26-2022 Nypngjzxecc-Qrmckgtmp-Ppcrig er (Trelegy Ellipta) 200-62.5-25 mcg blister with device Discontinued 1 INH INHALATION DAILY 60 May 26, 2022 1:44pm May 26, 2022 2:01pm Start: 06-10-2021 End: 05-26-2022 Iodutvwmaxz-Yfyonurxj-Lzvrer er (Trelegy Ellipta) 200-62.5-25 mcg blister with device Discontinued 1 NMA INHALATION DAILY June 10, 2021 12:00am May 26, 2022 1:44pm Start: 06-10-2021 End: 05-26-2022 Zdyypxvwhqy-Huodkffjq-Isrjia er (Trelegy Ellipta) 200-62.5-25 mcg blister with device Discontinued 1 INH INHALATION DAILY June 09, 2021 11:00pm May 26, 2022 12:44pm Start: 06-10-2021 End: 05-26-2022 Lvinhgfbphk-Qyfimyaxj-Vyqmqv er (Trelegy Ellipta) 200-62.5-25 mcg blister with device Discontinued 1 INH INHALATION DAILY June 10, 2021 12:00am May 26, 2022 1:44pm Hair Skin and Nails (5 sources) Start: 12-08-2022 Hair Skin and Nails Oral, qDay, from [facility], 0 Refill(s) Start Date: 12/08/22 Status: Ordered irbesartan 300 mg oral tablet (13 sources) Angiotensin 2 Receptor Gallo Start: 12-08-2022 irbesartan 300 mg oral tablet Dose : 300 mg = 1 tab(s), Oral, qDay, # 90 tab(s), 0 Refill(s), Pharmacy: [id number], 166.3, cm, 07/06/23 16:06:00 EDT, Height, kg, 07/06/23 16:06:00 EDT, Dosing Weight Start Date: 07/06/23 Status: Ordered Start: 03-14-2022 irbesartan 300 mg oral tablet Dose : 300 mg = 1 tab(s), Oral, qDay, # 90 tab(s), 1 Refill(s), Pharmacy: [facility], 166, cm, 12/20/21 14:29:00 EST, Height, kg, 12/20/21 14:29:00 EST, Dosing Weight Start Date: 03/14/22 Status: Ordered itraconazole 100 mg oral capsule (2 sources) Azole Antifungal Start: 05-05-2022 End: 05-12-2022 itraconazole 100 mg oral capsule Dose : 200 mg = 2 cap(s), Oral, qDay, For Tinea corporis / Tinea cruris, X 7 day(s), # 14 cap(s), 0 Refill(s), 05/12/22 15:27:00 EDT, Pharmacy: [facility] #[id number], Tinea cruris, 167.6, cm, 05/05/22 15:01:00 EDT, Height, 106.2 Start Date: 05/05/22 Stop Date: 05/12/22 Status: Ordered K2 Plus D3 (4 sources) Start: 03-26-2023 K2 Plus D3 0 R efill(s) Start Date: 03/26/23 Status: Ordered levothyroxine sodium 0.075 mg oral tablet (17 sources) l-Thyroxine Start: 07-06-2023 levothyroxine 75 mcg (0.075 mg) oral tablet Dose : 75 mcg = 1 tab(s), Oral, qDay, # 90 tab(s), 0 Refill(s), Pharmacy: [id number], 166.3, cm, 07/06/23 16:06:00 EDT, Height, kg, 07/06/23 16:06:00 EDT, Dosing Weight Start Date: 07/06/23 Status: Ordered Start: 12-08-2022 levothyroxine 75 mcg (0.075 mg) oral tablet Dose : 75 mcg = 1 tab(s), Oral, qDay, # 90 tab(s), 1 Refill(s), Pharmacy: [facility] #[id number], 166, cm, 12/08/22 14:00:00 EDT, Height, kg, 12/08/22 14:00:00 EDT, Dosing Weight Start Date: 12/08/22 Status: Ordered Start: 05-05-2022 levothyroxine 75 mcg (0.075 mg) oral tablet Dose : 75 mcg = 1 tab(s), Oral, qDay, # 30 tab(s), 1 Refill(s), Pharmacy: [facility] #[id number], 167.6, cm, 05/05/22 15:01:00 EDT, Height, kg, 05/05/22 15:01:00 EDT, Dosing Weight Start Date: 05/05/22 Status: Ordered Start: 02-10-2022 levothyroxine 75 mcg (0.075 mg) oral tablet Dose : 75 mcg = 1 tab(s), Oral, qDay, # 30 tab(s), 1 Refill(s), Pharmacy: [facility], 166, cm, 12/20/21 14:29:00 EST, Height, kg, 12/20/21 14:29:00 EST, Dosing Weight Start Date: 02/10/22 Status: Ordered Start: 04-04-2021 levothyroxine 50 mcg (0.05 mg) oral tablet Dose : 50 mcg = 1 tab(s), Oral, qDay, # 90 tab(s), 3 Refill(s), Pharmacy: [facility], 166, cm, 04/04/21 15:25:00 EST, Height, kg, 04/04/21 15:25:00 EST, Dosing Weight Start Date: 04/04/21 Status: Ordered Start: 03-03-2020 levothyroxine 50 mcg (0.05 mg) oral tablet Dose : 50 mcg = 1 tab(s), Oral, qDay, # 90 tab(s), 3 Refill(s), Pharmacy: [facility] #[facility], 166, cm, 03/01/20 14:54:00 EST, Height, kg, 03/01/20 14:54:00 EST, Dosing Weight Start Date: 03/03/20 Status: Ordered Start: 04-11-2017 take 3 tablets by mo uth once daily Levothyroxine 25 MCG tablet Active 75 ug PO DAILY April 11, 2017 1:00am Start: 04-11-2017 take 75 ug by mouth once daily Levothyroxine Active 75 MCG PO DAILY April 11, 2017 1:00am Start: 04-11-2017 take 25 ug by mouth once daily Levothyroxine Active 25 MCG PO DAILY April 11, 2017 6:23pm mupirocin 20 mg/ml topical cream (2 sources) RNA Synthetase Inhibitor Antibacterial Start: 08-19-2018 mupirocin 2% topical cream Apply 1 raiza, Topical, TID, # 15 gram(s), 1 Refill(s), Pharmacy: [facility] #[id number], Cream Start Date: 08/19/18 Status: Ordered Start: 08-19-2018 mupirocin 2% t opical cream Apply 1 raiza, Topical, TID, # 15 gram(s), 1 Refill(s), Pharmacy: [facility] #[id number], Cream Start Date: 08/19/18 Status: Ordered naproxen sodium 220 mg oral tablet (17 sources) Nonsteroidal Anti-inflammatory Drug Start: 08-19-2018 Aleve 220 mg oral tablet Dose : 440 mg = 2 tab(s), Oral, q8h, PRN for headache, 0 Refill(s) Start Date: 08/19/18 Status: Ordered Start: 07-08-2015 take 2 tablets by mo [facility] once daily Naproxen Sodium (Aleve) 220 MG tablet Active 440 mg PO DAILY July 08, 2015 12:00am Start: 07-08-2015 take 2 tablets by mo ut every twelve hours as needed Naproxen Sodium (Aleve) 220 MG tablet Active 440 MG PO EVERY 12 HOURS NEEDED July 08, 2015 2:32pm nicotine 2 mg oral lozenge (7 sources) Cholinergic Nicotinic Agonist Start: 09-03-2023 nicotine 2 mg oral transmucosal lozenge 2 mg Dose = 1 lozenge(s), Transmucosal, q1h, PRN as needed for smoking cessation, as directed on package labeling, # 300 lozenge(s), 0 Refill(s), COPD - Chronic obstructive pulmonary disease Start Date: 09/03/23 Status: Ordered Start: 07-06-2023 nicotine 2 mg oral transmucosal lozenge 2 mg Dose = 1 lozenge(s), Transmucosal, q1h, PRN as needed for smoking cessation, as directed on package labeling, # 300 lozenge(s), 0 Refill(s), Pharmacy: [id number], COPD - Chronic obstructive pulmonary disease, 166.3, cm, 07/06/23 16:06:00 EDT, Height, kg, 07/06/23 16:06:00 EDT, Dosing Weight Start Date: 07/06/23 Status: Ordered Start: 12-20-2021 nicotine 2 mg oral transmucosal lozenge 2 mg Dose = 1 lozenge(s), Transmucosal, q1h, PRN as needed for smoking cessation, as directed on package labeling, # 300 lozenge(s), 0 Refill(s), Pharmacy: [facility], COPD - Chronic obstructive pulmonary disease On supplemental oxygen by nasal... Start Date: 12/20/21 Status: Ordered nutritional supplement (2 sources) Start: 12-08-2022 nutritional richey pplement Joint supplement from [facility], 0 Refill(s) Start Date: 12/08/22 Status: Ordered nystatin 100 unt/mg topical powder (4 sources) Polyene Antifungal Start: 05-01-2022 End: 06-30-2022 nystatin 100,000 units/g topical powder Apply 1 raiza, Topical, BID, X 30 day(s), # 30 gram(s), 1 Refill(s), Pharmacy: [facility] #[id number], Powder, 167.6, cm, 05/01/22 14:50:00 EDT, Height, 104.2 Start Date: 05/01/22 Stop Date: 06/30/22 Status: Ordered pantoprazole 40 mg delayed release oral tablet (17 sources) Proton Pump Inhibitor Start: 04-23-2019 pantoprazole 40 mg oral enteric coated tablet Dose : 40 mg = 1 tab(s), Oral, qDayAC, # 90 tab(s), 1 Refill(s), Pharmacy: [id number], 166.3, cm, 07/06/23 16:06:00 EDT, Height, kg, 07/06/23 16:06:00 EDT, Dosing Weight Start Date: 07/06/23 Status: Ordered sertraline 100 mg oral tablet (17 sources) Serotonin Reuptake Inhibitor Start: 07-06-2023 sertraline 100 mg or al tablet Dose : 200 mg = 2 tab(s), Oral, Daily, # 180 tab(s), 0 Refill(s), Pharmacy: [id number], 166.3, cm, 07/06/23 16:06:00 EDT, Height, kg, 07/06/23 16:06:00 EDT, Dosing Weight Start Date: 07/06/23 Status: Ordered Start: 12-08-2022 sertraline 100 mg oral tablet Dose : 200 mg = 2 tab(s), Oral, Daily, # 180 tab(s), 3 Refill(s), Pharmacy: [facility] #[id number], 166, cm, 12/08/22 14:00:00 EDT, Height, kg, 12/08/22 14:00:00 EDT, Dosing Weight Start Date: 12/08/22 Status: Ordered Start: 03-14-2022 sertraline 100 mg oral tablet Dose : 200 mg = 2 tab(s), Oral, Daily, # 180 tab(s), 3 Refill(s), Pharmacy: [facility], 166, cm, 12/20/21 14:29:00 EST, Height, kg, 12/20/21 14:29:00 EST, Dosing Weight Start Date: 03/14/22 Status: Ordered Start: 01-18-2021 take 2 tablets by mo [facility] once daily Sertraline 100 mg tablet Active 200 mg PO DAILY January 18, 2021 1:00am Start: 01-18-2021 take 200 mg by mouth once chris y Sertraline Active 200 MG PO DAILY January 18, 2021 1:00am Start: 09-06-2020 sertraline 100 mg oral tablet Dose : 200 mg = 2 tab(s), Oral, Daily, # 180 tab(s), 3 Refill(s), Pharmacy: [facility] #30, 166, cm, 09/06/20 14:07:00 EDT, Height, kg, 09/06/20 14:15:00 EDT, Dosing Weight Start Date: 09/06/20 Status: Ordered sodium chloride 30 mg/ml inhalation solution (3 sources) Start: 07-06-2023 sodium chloride 3% inhalation solution 0.12 gram(s) Dose = 4 mL, Inhalation, QID, Best to use for mucus issues, # 160 mL, 1 Refill(s), Pharmacy: [id number], COPD - Chronic obstructive pulmonary disease Shortness of breath on exertion, 166.3, cm, 07/06/23 16:06:00 EDT, Height, kg, 07/06/23 16:06:00 EDT, Dosing Weight Start Date: 07/06/23 Status: Ordered traZODone hydrochloride 50 mg oral tablet (2 sources) Serotonin Reuptake Inhibitor Start: 09-06-2020 traZODone 50 mg oral tablet Dose : 50 mg = 1 tab(s), Oral, qHS, # 30 tab(s), 4 Refill(s), Pharmacy: [facility] #30, 166, cm, 09/06/20 14:07:00 EDT, Height, kg, 09/06/20 14:15:00 EDT, Dosing Weight Start Date: 09/06/20 Status: Ordered Trelegy Ellipta 200 mcg-62.5 mcg-25 mcg/inh inhalation powder (10 sources) Start: 07-06-2023 take 1 dose by inhalation once daily Trelegy Ellipta 200 mcg-62.5 mcg-25 mcg/inh inhalation powder Dose = 1 puff(s), Inhalation, qDay, at the same time every day, # 3 EA, 1 Refill(s), Pharmacy: [id number], 166.3, cm, 07/06/23 16:06:00 EDT, Height, kg, 07/06/23 16:06:00 EDT, Dosing Weight Start Date: 07/06/23 Status: Ordered Start: 03-26-2023 Trelegy Ellipt a 200 mcg-62.5 mcg-25 mcg/inh inhalation powder 0 Refill(s) Start Date: 03/26/23 Status: Ordered Start: 09-20-2021 take 1 dose by inhal ation once daily Trelegy Ellipta 200 mcg-62.5 mcg-25 mcg/inh inhalation powder Dose = 1 puff(s), Inhalation, qDay, at the same time every day, 0 Refill(s) Start Date: 09/20/21 Status: Ordered Vitamin D3 1250 mcg (50,000 intl units) oral capsule (4 sources) Start: 10-03-2021 Vitamin D3 125 0 mcg (50,000 intl units) oral capsule Dose : 1,250 mcg = 1 cap(s), Oral, qWeek, # 12 cap(s), 1 Refill(s), Pharmacy: [facility], Vitamin D deficiency, 166.8, cm, 09/20/21 15:00:00 EDT, Height Start Date: 10/03/21 Status: Ordered Completed/Discontinued Medications Medication Drug Class(es) Dates Sig (Normalized) Sig (Original) acetaminophen 325 mg / HYDROcodone bitartrate 5 mg oral tablet (20 sources) Opioid Agonist Start: 09-19-2023 End: 11-18-2023 take 1 tablet by mouth every six hours [place] 325- 5 mg oral tablet Dose = 1 tab(s), Oral, q6hr, Fill 09/19/23 R0 Goal is #8 per month or less, Max #20 per 60 days, # 20 tab(s), 0 Refill(s), Pharmacy: [facility] Pharmacy [facility], Right hip pain, 166.5, cm, 09/03/23 14:34:00 EDT, Height, 97.8, kg, 09/03/23 14:34:00 EDT, Dosing Weight Start Date: 09/19/23 Stop Date: 11/18/23 Status: Ordered Start: 07-06-2023 End: 09-04-2023 take 1 tablet by mouth every six hours [place] 325- 5 mg oral tablet Dose = 1 tab(s), Oral, q6hr, Ok to fill 07/06/23. Goal is #8 per month or less, Max #20 per 60 days, # 20 tab(s), 0 Refill(s), Pharmacy: [id number], Right hip pain, 166.3, cm, 07/06/23 16:06:00 EDT, Height, 98.3, kg, 07/06/23 16:06:00 EDT, Dosing Weight Start Date: 07/06/23 Stop Date: 09/04/23 Status: Ordered Start: 03-19-2023 End: 04-18-2023 take 1 tablet by mouth every six hours [place] 325- 5 mg oral tablet Dose = 1 tab(s), Oral, q6hr, Goal is #8 per month or less, # 10 tab(s), 0 Refill(s), Pharmacy: [id number], Right hip pain, 166, cm, 02/20/23 9:34:00 EST, Height, 99.9, kg, 02/20/23 9:34:00 EST, Dosing Weight Start Date: 03/19/23 Stop Date: 04/18/23 Status: Ordered Start: 01-11-2023 End: 03-12-2023 take 1 tablet by mouth every six hours [place] 325- 5 mg oral tablet Dose = 1 tab(s), Oral, q6hr, Goal is #8 per month or less, # 10 tab(s), 0 Refill(s), Pharmacy: [facility] #[id number], Right hip pain, 02/08/23, 166, cm, 12/30/22 8:11:00 EST, Height, 104.5, kg, 12/30/22 8:11:00 EST, Dosing Weight Start Date: 02/10/23 Stop Date: 03/12/23 Status: Ordered Start: 04-11-2022 End: 06-04-2022 take 1 tablet by mouth every six hours [place] 325- 5 mg oral tablet Dose = 1 tab(s), Oral, q6hr, Goal is #8 per month or less, # 12 tab(s), 0 Refill(s), Pharmacy: [facility] #[id number], Right hip pain, 167.6, cm, 05/05/22 15:01:00 EDT, Height, 106.2, kg, 05/05/22 15:01:00 EDT, Dosing Weight Start Date: 05/05/22 Stop Date: 06/04/22 Status: Ordered Start: 05-23-2021 End: 07-22-2021 take 1 tablet by mouth twice daily as needed for pain [place] 325- 5 mg oral tablet Dose = 1 tab(s), Oral, BID, PRN for pain, fill on 06/22/21, X 60 day(s), # 60 tab(s), 0 Refill(s), Pharmacy: [facility], Arthritis, rheumatoid, 166, cm, 05/23/21 15:19:00 EDT, Height, 109, kg, 05/23/21 15:19:00 EDT, Dosing Weight Start Date: 05/23/21 Stop Date: 07/22/21 Status: Ordered Start: 07-08-2015 End: 02-18-2021 take 1 tablet by mouth every six hours as needed for pain [place] 325- 5 mg oral tablet Dose = 1 tab(s), Oral, q6h, PRN for pain, X 60 day(s), # 60 tab(s), 0 Refill(s), Pharmacy: [facility] #[id number], Arthritis, rheumatoid, 166, cm, 12/20/20 16:09:00 EST, Height, 106, kg, 12/20/20 16:09:00 EST, Dosing Weight Start Date: 12/20/20 Stop Date: 02/18/21 Status: Ordered Start: 07-08-2015 take 1 tablet by jian th every six hours as needed Hydrocodone-Acetaminophen Active 1 TABLET PO EVERY 6 HOURS NEEDED July 08, 2015 12:00am acetaminophen 325 mg / oxyCODONE hydrochloride 5 mg oral tablet (6 sources) Opioid Agonist Start: 07-02-2014 End: 07-03-2014 Oxycodone-Acetaminophen 1 TABLET tablet Discontinued 1 {tbl} PO EVERY 6 HOURS NEEDED as needed for Pain July 02, 2014 12:00am July 03, 2014 2:10pm Start: 07-02-2014 End: 07-03-2014 take 1 tablet by mouth every six hours as needed Oxycodone-Acetaminophen Discontinued 1 TABLET PO EVERY 6 HOURS NEEDED July 02, 2014 12:00am July 03, 2014 2:10pm albuterol 0.833 mg/ml / ipratropium bromide 0.167 mg/ml inhalation solution (3 sources) Anticholinergic, beta2-Adrenergic Agonist Start: 07-06-2023 End: 08-03-2023 take 1 dose by inhalation three times daily as needed for wheezing albuterol-ipratropium 2.5 mg-0.5 mg/3 mL inhalation solution Dose = 3 mL, Inhalation, TID, PRN as needed for shortness of breath or wheezing, Fill 07/06/23, goal is PRN use by 07/21/23, # 90 mL, 1 Refill(s), Pharmacy: [id number], COPD exacerbation, 166.3, cm, 07/06/23 16:06:00 EDT, Height, kg, 07/06/23 16:06:00 EDT, Dosing Weight Start Date: 07/06/23 Stop Date: 08/03/23 Status: Ordered alendronic acid 70 mg oral tablet (2 sources) Bisphosphonate Start: 06-17-2020 take 6-8 [oz_av] by mouth once daily Fosamax 70 mg oral tablet Dose : 70 mg = 1 tab(s), Oral, qWeek, with 6-8 oz plain water, at least 30 minutes before first food, beverage, or medication of the day, # 13 tab(s), 3 Refill(s), Pharmacy: [facility] #[id number], 166, cm, 03/01/20 14:54:00 EST, Height, kg, 05/31... Start Date: 06/17/20 Status: Ordered Blm M/T Susp (6 sources) Start: 07-30-2014 End: 08-20-2014 take 1 mL by mouth four times daily Blm M/T Susp Discontinued 5 - 10 ML PO 4 TIMES DAILY July 30, 2014 3:37pm August 20, 2014 9:52am Start: 07-30-2014 End: 08-20-2014 take 1 mL by mouth four times daily Blm M/T Susp Discontinued 5 - 10 mL PO 4 TIMES DAILY July 30, 2014 12:00am August 20, 2014 9:52am Start: 07-30-2014 End: 08-20-2014 take 1 mL by mouth four times daily Blm M/T Susp Discontinued 5 - 10 ML PO 4 TIMES DAILY July 29, 2014 11:00pm August 20, 2014 8:52am Start: 07-30-2014 End: 08-20-2014 take 1 mL by mouth four times daily Blm M/T Susp Discontinued 5 - 10 ML PO 4 TIMES DAILY July 30, 2014 12:00am August 20, 2014 9:52am conjugated estrogens 0.625 mg/g vaginal cream with applicator (1 source) Start: 09-06-2020 conjugated estrogens 0.625 mg/g vaginal cream with applicator See Instructions, Apply pea-sized dose of cream into the vagina twice weekly, # 30 gram(s), 3 Refill(s), Pharmacy: [facility] #[id number], 166, cm, 09/06/20 14:07:00 EDT, Height, kg, 09/06/20 14:15:00 EDT, Dosing Weight Start Date: 09/06/20 Status: Ordered 1 ml denosumab 60 mg/ml prefilled syringe (2 sources) RANK Ligand Inhibitor Start: 09-03-2023 Prolia 60 mg/mL subcutaneous solution Dose : 60 mg = 1 mL, Subcutaneous, q6mo, M81.0, # 1 mL, 1 Refill(s), [facility], clinical based on FRAX 2023, 166.5, cm, 09/03/23 14:34:00 EDT, Height, kg, 09/03/23 14:34:00 EDT, Dosing Weight Start Date: 09/03/23 Status: Ordered diazePAM 5 mg oral tablet (6 sources) Benzodiazepine Start: 07-30-2014 End: 08-20-2014 take 1 tablet by mouth twice daily as needed for anxiety Diazepam 5 MG tablet Discontinued 5 mg PO TWICE A DAY as needed for Anxiety July 30, 2014 12:00am August 20, 2014 9:51am estrogens, conjugated (nursing home) 0.625 mg/ml vaginal cream (1 source) Estrogen Start: 09-06-2020 conjugated estrogens 0.625 mg/g vaginal cream with applicator See Instructions, Apply pea-sized dose of cream into the vagina twice weekly, # 30 gram(s), 3 Refill(s), Pharmacy: [facility] #[id number], 166, cm, 09/06/20 14:07:00 EDT, Height, kg, 09/06/20 14:15:00 EDT, Dosing Weight Start Date: 09/06/20 Status: Ordered fluticasone propionate 0.05 mg/actuat metered dose nasal spray (6 sources) Corticosteroid Start: 04-23-2019 End: 12-30-2022 Fluticasone Propionate 1 SPRAY spray,suspension Discontinued 2 NMA NASAL DAILY April 23, 2019 12:00am December 30, 2022 2:03pm Start: 04-23-2019 End: 12-30-2022 Fluticasone Propionate Disco ntinued 2 SPRAY NASAL DAILY April 23, 2019 12:00am December 30, 2022 2:03pm levoFLOXacin 500 mg oral tablet (12 sources) Quinolone Antimicrobial Start: 04-24-2019 End: 01-18-2021 take 1 tablet by mouth once daily Levofloxacin 500 MG tablet Discontinued 500 mg PO DAILY January 16, 2021 5:33pm January 18, 2021 11:45am lisinopril 10 mg oral tablet (20 sources) Angiotensin Converting Enzyme Inhibitor Start: 12-20-2020 End: 12-30-2022 take 1 tablet by mouth once daily Lisinopril 10 mg Tablet Discontinued 10 mg PO DAILY January 26, 2021 1:00am December 30, 2022 2:03pm Start: 09-12-2018 End: 01-26-2021 take 2 tablets by mouth once daily, then take 2 tablets by mouth once daily, then take 1 tablet by mouth once daily Lisinopril 5 MG tablet Discontinued 10 mg PO DAILY 0 January 18, 2021 2:34pm January 26, 2021 9:45pm Change Lisinopril dosage from 10mg (2 tablets) daily, to 5mg (1 tablet) daily. Start: 09-12-2018 End: 01-26-2021 take 1 tablet by mouth once daily, then take 1 tablet by mouth once daily, then take 5 mg by mouth once daily Lisinopril Discontinued 10 MG PO DAILY 0 January 18, 2021 2:34pm January 26, 2021 9:45pm Change Lisinopril dosage from 10mg (2 tablets) daily, to 5mg (1 tablet) daily. oseltamivir 75 mg oral capsule (12 sources) Neuraminidase Inhibitor Start: 01-18-2021 End: 01-26-2021 take 1 capsule by mouth twice daily Oseltamivir (Tamiflu) 75 mg capsule Discontinued 75 mg PO TWICE A DAY January 18, 2021 6:06pm January 26, 2021 9:45pm predniSONE 20 mg oral tablet (20 sources) Start: 06-18-2023 End: 11-29-2023 take 2 tablets by mouth once daily Prednisone 20 mg tablet Discontinued 40 mg PO DAILY June 18, 2023 12:00am November 29, 2023 2:18pm Start: 06-18-2023 take 40 mg by mouth once daily Prednisone Active 40 MG PO DAILY June 18, 2023 12:00am Start: 01-12-2021 End: 01-19-2021 predniSONE 20 mg oral tablet Dose : 60 mg = 3 tab(s), Oral, qDay, X 7 day(s), # 21 tab(s), 0 Refill(s), 01/19/21 15:28:00 EST, Pharmacy: [facility] #[id number], COPD exacerbation, 167.6, cm, 01/12/21 14:52:00 EST, Height, kg, 01/12/21 14:52:00 EST, Dosing Weight Start Date: 01/12/21 Stop Date: 01/19/21 Status: Ordered Start: 04-24-2019 End: 01-26-2021 take 2 tablets by mouth once daily Prednisone 20 mg tablet Discontinued 40 mg PO DAILY January 18, 2021 6:06pm January 26, 2021 9:45pm Start: 04-24-2019 End: 01-26-2021 take 40 mg by mouth once daily Prednisone Discontinued 40 MG PO DAILY January 18, 2021 6:06pm January 26, 2021 9:45pm rivaroxaban 15 mg oral tablet (6 sources) Factor Xa Inhibitor Start: 07-27-2014 End: 07-30-2014 take 1 tablet by mouth twice daily Rivaroxaban (Xarelto) 15 MG tablet Discontinued 15 mg PO TWICE A DAY 42 July 27, 2014 12:00am July 30, 2014 3:57pm Problems Active Problems Problem Classification Problem Date Documented Da te Episodic/Chronic Acute myocardial infarction (6 sources) Myocardial infarction; Translations: [Non-ST elevation (NSTEMI) myocardial infarction] 02-11-2021 Chronic Asthma (7 sources) Asthma-chronic obstructive pulmonary disease overlap syndrome; Translations: [Asthma-chronic obstructive pulmonary disease overlap syndrome] 12-30-2022 Chronic Cancer of rectum and anus (9 sources) History of malignant neoplasm of anus; Translations: [Personal history of other malignant neoplasm of rectum, rectosigmoid junction, and anus] Onset: 02-09-2023 Episodic Chronic obstructive pulmonary disease and bronchiectasis (20 sources) Chronic obstructive lung disease; Translations: [Acute exacerbation of chronic obstructive airways disease] Onset: 4 05-06-2014 Chronic Conditions associated with dizziness or vertigo (7 sources) Vertigo 06-19-2022 Episodic Coronary atherosclerosis and other heart disease (6 sources) Non-obstructive atherosclerosis of coronary artery; Translations: [Atherosclerotic heart disease of [place] coronary artery without angina pectoris] 01-17-2021 Chronic Esophageal disorders (17 sources) Gastroesophageal reflux disease; Translations: [Gastro-esophageal reflux disease without esophagitis] 09-20-2021 Chronic Essential hypertension (20 sources) Essential hypertension; Translations: [Essential (primary) hypertension] Onset: 5 09-20-2021 Chronic Genitourinary symptoms and ill-defined conditions (8 sources) Urinary incontinence 05-06-2014 Chronic Influenza (12 sources) Influenza due to Influenza A virus; Translations: [Influenza due to other identified influenza virus with other respiratory manifestations] 01-26-2021 Episodic Malaise and fatigue (6 sources) Asthenia; Translations: [Other malaise] 01-18-2021 Episodic Mood disorders (13 sources) Depressive disorder; Translations: [Recurrent major depression] 07-02-2020 Chronic Nutritional deficiencies (11 sources) Vitamin D deficiency 10-03-2021 Chronic Osteoporosis (6 sources) Osteoporosis; Translations: [Age-related osteoporosis without current pathological fracture] Onset: 4 09-03-2023 Chronic Comment on above: Joint pain with prol ia 03/2024 cessation Other and unspecified benign neoplasm (13 sources) Polyp of colon 05-06-2014 Episodic Other bone disease and musculoskeletal deformities (8 sources) Osteopenia 09-20-2021 Episodic Other ear and sense organ disorders (13 sources) Hearing loss 05-06-2014 Chronic Other gastrointestinal disorders (2 sources) Heartburn 05-06-2014 Episodic Other hereditary and degenerative nervous system conditions (7 sources) Restless legs 12-08-2022 Chronic Other lower respiratory disease (13 sources) Snoring 05-07-2014 Episodic Other lower respiratory disease (15 sources) Dyspnea on exertion 05-06-2014 Episodic Other lower respiratory disease (6 sources) Dyspnea; Translations: [Dyspnea, unspecified] 03-17-2021 Episodic Comment on above: High clinical suspic ion for COPD Other lower respiratory disease (6 sources) Nodule of lung; Translations: [Solitary pulmonary nodule] 03-17-2021 Episodic Comment on above: 8 mm left lower lobe Other lower respiratory disease (1 source) Dyspnea, unspecified; Translations: [Other respiratory abnormalities] Episodic Other lower respiratory disease (1 source) Cough 10-25-2021 Episodic Other lower respiratory disease (5 sources) Multiple nodules of lung 04-17-2023 Episodic Other non-traumatic joint disorders (11 sources) Hip pain 12-20-2021 Episodic Other nutritional; endocrine; and metabolic disorders (2 sources) Obesity 05-06-2014 Chronic Other upper respiratory disease (6 sources) Allergic rhinitis; Translations: [Allergic rhinitis, unspecified] 01-18-2021 Chronic Other upper respiratory infections (3 sources) Sinusitis; Translations: [Chronic sinusitis, unspecified] 05-29-2023 Chronic Other upper respiratory infections (2 sources) Upper respiratory infection; Translations: [Acute upper respiratory infection, unspecified] 06-18-2023 Episodic Phlebitis; thrombophlebitis and thromboembolism (6 sources) Deep venous thrombosis; Translations: [Acute embolism and thrombosis of unspecified deep veins of unspecified lower extremity] 04-12-2017 Episodic Prolapse of female genital organs (9 sources) Uterovaginal prolapse; Translations: [Uterovaginal prolapse, unspecified] Onset: 4 02-09-2023 Chronic Residual codes; unclassified (6 sources) Tobacco user; Translations: [Tobacco use] 05-26-2022 Episodic Residual codes; unclassified (11 sources) Insomnia 10-25-2021 Episodic Respiratory failure; insufficiency; arrest (adult) (15 sources) Patient on oxygen; Translations: [Chronic hypoxemic respiratory failure] 09-20-2021 Chronic Respiratory failure; insufficiency; arrest (adult) (15 sources) Acute respiratory failure; Translations: [Acute respiratory failure with hypoxia] 06-10-2021 Episodic Rheumatoid arthritis and related disease (20 sources) Rheumatoid arthritis; Translations: [Subcutaneous rheumatoid nodule] 05-06-2014 Chronic Skin and subcutaneous tissue infections (6 sources) Abscess; Translations: [Cutaneous abscess, unspecified] 06-26-2020 Episodic Thyroid disorders (20 sources) Hypothyroidism; Translations: [Hypothyroidism, unspecified] Onset: Chronic Unclassified (13 sources) Eye glasses, device (physical object) 05-06-2014 Unclassified (2 sources) Osteopenia 05-06-2014 Unclassified (11 sources) Long-term current use of proton pump inhibitor therapy 09-20-2021 Unclassified (11 sources) Prescribed medication regimen behavior finding 09-20-2021 Unclassified (7 sources) Sebaceous cyst of skin 06-19-2022 Viral infection (4 sources) Disease caused by 2018-nCoV; Translations: [COVID-19] 12-30-2022 Episodic Viral infection (2 sources) Disease caused by 2019-nCoV 12-30-2022 Past or Other Problems Problem Classification Problem Date Documented Da te Episodic/Chronic Genitourinary symptoms and ill-defined conditions (4 sources) Increased frequency of urination; Translations: [Frequency of micturition] Onset: 03-29-2023 02-09-2023 Episodic Other infections; including parasitic (2 sources) Personal history of other infectious and parasitic diseases; Translations: [Personal history of other infectious and parasitic diseases] Onset: 02-20-2023 Episodic Other lower respiratory disease (2 sources) Solitary pulmonary nodule; Translations: [Solitary pulmonary nodule] Onset: 11-29-2023 Episodic Other screening for suspected conditions (not mental disorders or infectious disease) (14 sources) Blood chemistry abnormal; Translations: [Other specified abnormal findings of blood chemistry] Onset: 03-29-2023 Episodic Residual codes; unclassified (3 sources) Tobacco use; Translations: [Tobacco use disorder] Onset: 11-29-2023 05-26-2022 Episodic Results Test Name Value Interpretation Reference Range Facility TSHRon 07-04-2024 TSH Qn 2.96 m[IU]/L Normal 0.36-3.74 [facility] Comment on above: Performed By: #### T [facility] #### [facility] [address] [place] [id number] Pulmonary Visit Reporton Pulmonary Visit Report [facility] [place] [address] [place] [address] OFFICE VISIT Date of Service: 05/01/24 MR#: [id number] Acct: [id number] Name: DONALDO ZHAO #: [id number] : 1955 Provider: JOHN Ugarte Age/Sex: 69/F [place] [facility] [place] Status: Signed Assessment and Plan Assessment and Plan (1) Asthma-COPD overlap syndrome: Status: Chronic Plan: Stable, she does not appear to be an exacerbation of asthma/COPD today. No need for prednisone or antibiotic. Continue current maintenance medication, on Trelegy. No additional testing at this time. Contact the office for any new or worsening symptoms. An acute visit and typically be arranged within 1-2 days. Follow-up in 6 months. (2) Respiratory failure with hypoxia: Status: Chronic Qualifiers: Chronicity: unspecified Qualified Code(s): J96.91 - Respiratory failure, unspecified with hypoxia Plan: The patient is using and benefiting from oxygen. Continue to utilize to maintain a saturation of 89-92%. Follow-up in 6 months. (3) Rheumatoid arthritis: Status: Chronic Qualifiers: Rheumatoid arthritis location: unspecified site Rheumatoid factor presence: unspecified presence Qualified Code(s): M06.9 - Rheumatoid arthritis, unspecified Plan: Complicates exam, plan, care and prognosis. (4) Tobacco abuse: Status: Chronic Plan: Encourage complete smoking cessation. 1.4 cm nodule on LDCT. Will monitor by repeating a diagnostic CT scan in 6 months. Return to the office in November to discuss test results. Orders: Orders Chest without Contrast 10/06/24 R91.1 - Solitary pulmonary nodule Plan Details Follow Up: 11/05/24 ([facility]) HPI 5 m fu Chief Complaint: test results HPI Comments Details: This patient presents to the office today for follow-up of her asthma/COPD overlap syndrome with chronic hypoxic respiratory failure. She is ambulatory and currently on supplemental oxygen. She has not recently been seen in the ED or urgent care for any respiratory illness. She has not required any antibiotics or prednisone for any breathing problems. She is compliant with use Trelegy 1 puff daily. She denies any medication side effect such as sore throat or thrush. She continues to smoke cigarettes. She is currently smoking 1/2 pack/day. She admits to smoking marijuana daily also. She is compliant with supplemental oxygen. She uses 2 L/min. She reassures me that she does not smoke with supplemental oxygen in place. She does have shortness of breath with exertion. She has a cough that is productive of yellow- colored sputum. She denies any hemoptysis. She is experiencing sinus drainage. She denies any wheezing, chest tightness, chest pain or palpitations. She also denies any fever, chills or body aches. Test results personally reviewed with patient: Low-dose CT lung screen completed on April 25, 2024. Advanced emphysematous changes noted. Focal irregular nodular density in the posterior aspect of the lingular segment of the left upper lobe measuring 1.4 cm. This has improved compared to prior study. Intake Vital Signs 11/29/23 07:44 05/01/24 08:08 Height 5 ft 5.5 in 5 ft 5.5 in Weight: 215 lb 217 lb BMI 35.2 35.5 BP 122/78 H 115/79 Blood Pressure Location Lt brachial Lt brachial Position Sitting Sitting Respiration 18 20 H Pulse 91 82 Pulse Source Monitor Monitor Temp 96.8 F L 97.4 F L Temperature Source Temporal Artery Temporal Artery Pulse Oximetry (%) 94 97 Oxygen Delivery Method nasal canula nasal canula Oxygen Flow Rate (L/min) 1 2 Intake Visit Reasons: 5 m fu Chief Complaint: F/U Vp Talent Management Required: No DME Vendor: [employer] Accompanied by: Self Allergies cefadroxil hydrate (From [facility] [place] Allergy (Verified 05/01/24 15:14) Itching Medications ???Medication ???Instructions ???Recorded ???Confirmed ???Type hydrocodone-acetaminop hen 5-325mg 1 tab PO Q6H PRN PRN Pain 6 05/01/24 History 5mg-325mg naproxen sodium 220 mg tablet 440 mg PO DAILY Pain 07/08/1504/06 History (Aleve) levothyroxine 25 mcg tablet 75 mcg PO DAILY thyroid 04/11/17 0 05/01/24 History pantoprazole 40 mg tablet,delayed 40 mg PO DAILY reflux 04/23/19 History release sertraline 100 mg tablet 200 mg PO DAILY anxiety and 05/01/24 History depression irbesartan 300 mg tablet 300 mg PO DAILY 12/30/22 05/01/24 History albuterol sulfate 90 mcg/actuation 2 puff inhalation Q4H PRN PRN 05/01/24 Rx aerosol inhaler (Ventolin HFA) Shortness of breath, wheezing ##3 aspirin 81 mg tablet,delayed 81 mg PO QDAY 11/29/23 05/01/24 Hi story release fluticasone fur. 200 mcg-umeclid 1 inh inhalation DAILY #3 ea 11/2805/01/24 Rx 62.5 mcg-vilant 25 mcg inh (more content not included)... Normal [facility] Low Dose CT Lung Screeningon 04-25-[address] Lung Screening [facility] [address] [place] [address] Lung Screening MR#: [id number] Acct: [id number] Name: DONALDO ZHAO Rep #: [id number] : 1955 F 69 From: Cash saldaña MD PCP: Dr. Blade Bond, DO Status: [facility] CL Study: Low Dose CT Lung Screening Date of Exam: 04/25 Exam# [id number] Ordering Dr: Glendy Ugarte DIELECTRIC PRESS OPERATOR DIELECTRIC PRESS OPERATOR-C PROCEDURE: LOW DOSE CT LUNG SCREENING 04/25/2024 REASON FOR EXAM: SMOKING HISTORY Current smoker. Patient has smoked 1 pack per day for 52 years. COPD. History of anal cancer. TECHNIQUE: Low Dose CT Lung screening without contrast. Coronal and Sagittal reconstruction series were provided. One or more dose reduction techniques were used (e.g., Automated exposure control, adjustment of the mA and/or kV according to patient size, use of iterative reconstruction technique). REFERENCE LINK: [employer] Lung-RADS RADIATION DOSE SUMMARY: CTDlvol: 4.02 mGy DLP: 139.44 mGycm COMPARISON: Comparison is made with prior study dated March 29, 2023. FINDINGS: PULMONARY NODULES: (Only nodules >3mm are reported) Nodules described below are on series 1 unless otherwise specified. Pulmonary Nodules: Hardware:None Lymph Nodes:None Heart and Vasculature:Coronary artery calcifications are noted.Atherosclerotic calcifications of the thoracic aorta. Thoracic aorta and pulmonary arteries have normal contours; noncontrast technique limits evaluation. Coronary Artery Calcifications: Present Lungs and Airways: Advanced emphysematous changes are present. Focal irregular nodular density in the posterior aspect of the lingular segment of the left upper lobe measuring 1.4 cm in the lateral aspect as seen on axial image number 156 this has improved as compared to prior study. Pleura:Unremarkable Upper Abdomen:Unremarkable Bones:Degenerative changes of the thoracic spine. CT/Low Dose CT Lung Screening IMPRESSION: Lung-RADS Category: 3 PROBABLY BENIGN (BASED ON IMAGING FEATURES OR BEHAVIOR). RECOMMEND 6 MONTH LDCT. Other Significant Findings: None. Reading Location: [place] [address] CC: DIELECTRIC PRESS OPERATORKamryn Ugarte; Dr. Blade Bond DO Choke Setter: Signed Normal [facility] 04-21-2024 U Ratio Alb/Cre 14 mg/G Normal 0-30 [facility] Comment on above: Result Comment: The units for the MALB test were changed, but the MALB ratio calculation was not initially adjusted to reflex this. The corrected ratio has now been recalculated using the appropriate conversion factor. BP Performed By: #### C AION, TSHR, PHOS, BMP, GFR, FT4 #### [id number] [place] [address] 04-03-2024 U Creatinine 28.0 mg/dL Normal [facility] Comment on above: Performed By: #### C AION, TSHR, PHOS, BMP, GFR, FT4 #### [id number] [place], [place] [address] U Microalb 3.9 mg/L Normal [facility] Comment on above: Performed By: #### C AION, TSHR, PHOS, BMP, GFR, FT4 #### [address] [address] LABORATORYOrdered By: Onofre Jung on 04-02-2024 Albumin DL <= 20 mg/L (U) [Mass/Vol] 3.9 mg/L Invalid Interpretation Code AO ADM SS Albumin/Creatinine DL <= 20 mg/L (U) [Mass ratio] 0 mcg/mg Normal 0 - 30 mcg/mg AO Chemistry S Creatinine (U) [Mass/Vol] 28.0 mg/dL Invalid Interpretation Code AO ADM SS FT4on 03-08-2024 Free T4 [Mass/Vol] 1.09 ng/dL Normal 0.76-1.46 [facility] Comment on above: Order Comment: Order ed by Discern Performed By: #### C AION, TSHR, PHOS, BMP, GFR, FT4 #### [address] [address] .GFRon 03-07-2024 GFR 80 ml/min/1.73sqm Normal [facility] Comment on above: Result Comment: GFR Population mean for , Non- Americans Ages 20-29 = 116 mL/min/1.73 sq.m. Ages 30-39 = 107 mL/min/1.73 sq.m. Ages 40-49 = 99 mL/min/1.73 sq.m. Ages 50-59 = 93 mL/min/1.73 sq.m. Ages 60-69 = 85 mL/min/1.73 sq.m. Ages 70+ = 75 mL/min/1.73 sq.m. Chronic Kidney Disease: Less than 60 mL/min/1.73 square meters End Stage Renal Disease: Less than 15 mL/min/1.73 square meters Performed By: #### C AIJULISSA, TSHR, PHOS, BMP, GFR, FT4 #### [address] [address] GFR Non- 66 ml/min/1.73sqm Normal [facility] Comment on above: Result Comment: GFR Population mean for , Non- Americans Ages 20-29 = 116 mL/min/1.73 sq.m. Ages 30-39 = 107 mL/min/1.73 sq.m. Ages 40-49 = 99 mL/min/1.73 sq.m. Ages 50-59 = 93 mL/min/1.73 sq.m. Ages 60-69 = 85 mL/min/1.73 sq.m. Ages 70+ = 75 mL/min/1.73 sq.m. Chronic Kidney Disease: Less than 60 mL/min/1.73 square meters End Stage Renal Disease: Less than 15 mL/min/1.73 square meters Performed By: #### C AION, TSHR, PHOS, BMP, GFR, FT4 #### [address] [address] BMPon 03-07-2024 BUN/Creatinine Ratio 22 ratio Normal 7-27 [facility] Comment on above: Performed By: #### C AION, TSHR, PHOS, BMP, GFR, FT4 #### [address] [address] Calcium [Mass/Vol] 9.6 mg/dL Normal 8.4-10.2 [facility] Comment on above: Performed By: #### C AION, TSHR, PHOS, BMP, GFR, FT4 #### [address] [address] Chloride [Moles/Vol] 100 mmol/L Normal 98-107 [facility] Comment on above: Performed By: #### C AION, TSHR, PHOS, BMP, GFR, FT4 #### [address] [address] CO2 [Moles/Vol] 26 mmol/L Normal 23-31 [facility] Comment on above: Performed By: #### C AION, TSHR, PHOS, BMP, GFR, FT4 #### [address] [address] Creatinine [Mass/Vol] 0.85 mg/dL Normal 0.55-1.02 [facility] Comment on above: Result Comment: Test ing performed on XDC Dimension EXL analyzer using a modified kinetic Shyla technique. Performed By: #### C AION, TSHR, PHOS, BMP, GFR, FT4 #### [address] [address] Electrolyte Balance 8.0 mEq/L Normal 4.0-15.0 [facility] Comment on above: Performed By: #### C AION, TSHR, PHOS, BMP, GFR, FT4 #### [id number] Glucose [Mass/Vol] 88 mg/dL Normal 83-110 [facility] Comment on above: Performed By: #### C AION, TSHR, PHOS, BMP, GFR, FT4 #### [address] [address] Potassium [Moles/Vol] 4.1 mmol/L Normal 3.5-5.1 [facility] Comment on above: Performed By: #### Chepe AION, TSHR, PHOS, BMP, GFR, FT4 #### [address] [address] Sodium [Moles/Vol] 134 mmol/L Low 136-145 [facility] Comment on above: Performed By: #### C AION, TSHR, PHOS, BMP, GFR, FT4 #### [address] [address] Urea nitrogen [Mass/Vol] 19 mg/dL High 7-18 [facility] Comment on above: Performed By: #### Chepe AION, TSHR, PHOS, BMP, GFR, FT4 #### [address] [address] CAIONon 03-07-2024 Calcium Ionized 1.12 mmol/L Normal 1.12-1.32 [facility] Comment on above: Performed By: #### Chepe AION, TSHR, PHOS, BMP, GFR, FT4 #### [address] [address] LABORATORYOrdered By: SYSTEM SYSTEM on 03-07-2024 Calcium [Mass/Vol] 9.6 mg/dL Normal 8.4 - 10. 2 mg/dL AO ADM SS Chloride [Moles/Vol] 100 mmol/L Normal 98 - 10 7 mmol/L AO ADM SS CO2 [Moles/Vol] 26 mmol/L Normal 23 - 31 mmol/L AO ADM SS Creatinine [Mass/Vol] 0.85 mg/dL Normal 0.55 - 1.02 mg/dL AO ADM SS Comment on above: Interpretive Data: T esting performed on Siemens Dimension EXL analyzer using a modified kinetic Shyla technique. Electrolyte Balance 8.0 mEq/L Normal 4.0 - 15 .0 mEq/L AO ADM SS GFR/1.73 sq M.predicted among blacks MDRD (S/P/Bld) [Vol rate/Area] 80 ml/min/1.73sqm Invalid Interpretation Code AO Chemistry S Comment on above: Interpretive Data: GFR Population mean for , Non- Americans Ages 20-29 = 116 mL/min/1.73 sq.m. Ages 30-39 = 107 mL/min/1.73 sq.m. Ages 40-49 = 99 mL/min/1.73 sq.m. Ages 50-59 = 93 mL/min/1.73 sq.m. Ages 60-69 = 85 mL/min/1.73 sq.m. Ages 70+ = 75 mL/min/1.73 sq.m. Chronic Kidney Disease: Less than 60 mL/min/1.73 square meters End Stage Renal Disease: Less than 15 mL/min/1.73 square meters GFR/1.73 sq M.predicted among non-blacks MDRD (S/P/Bld) [Vol rate/Area] 66 ml/min/1.73sqm Invalid Interpretation Code AO Chemistry S Comment on above: Interpretive Data: GFR Population mean for , Non- Americans Ages 20-29 = 116 mL/min/1.73 sq.m. Ages 30-39 = 107 mL/min/1.73 sq.m. Ages 40-49 = 99 mL/min/1.73 sq.m. Ages 50-59 = 93 mL/min/1.73 sq.m. Ages 60-69 = 85 mL/min/1.73 sq.m. Ages 70+ = 75 mL/min/1.73 sq.m. Chronic Kidney Disease: Less than 60 mL/min/1.73 square meters End Stage Renal Disease: Less than 15 mL/min/1.73 square meters Glucose [Mass/Vol] 88 mg/dL Normal 83 - 110 mg/dL AO ADM SS Phosphate [Mass/Vol] 2.7 mg/dL Normal 2.3 - 4 .1 mg/dL AO ADM SS Potassium [Moles/Vol] 4.1 mmol/L Normal 3.5 - 5.1 mmol/L AO ADM SS Sodium [Moles/Vol] 134 mmol/L Low 136 - 145 mmol/L AO ADM SS TSH Qn 3.84 m[IU]/L High 0.36 - 3.74 mcIU/mL AO ADM SS Urea nitrogen [Mass/Vol] 19 mg/dL High 7 - 18 mg/dL AO ADM SS Urea nitrogen/Creatinine [Mass ratio] 22 ratio Normal 7 - 27 ratio AO ADM SS LABORATORYOrdered By: Ajit Mckenzie on 03-07-2024 Calcium Ionized 1.12 mmol/L Normal 1.12 - 1.32 mmol/L AO Rapid Comm SS PHOSon 03-07-2024 Phosphate [Mass/Vol] 2.7 mg/dL Normal 2.3-4.1 [facility] Comment on above: Performed By: #### C AION, TSHR, PHOS, BMP, GFR, FT4 #### [id number] [place], [place] [address] TSHRon 03-07-2024 TSH Qn 3.84 m[IU]/L High 0.36-3.74 [facility] Comment on above: Performed By: #### C AION, TSHR, PHOS, BMP, GFR, FT4 #### [id number] [place], [place] [address] Pulmonary Visit Reporton Pulmonary Visit Report [facility]monary Medicine of [address] [place] [address] OFFICE VISIT Date of Service: 11/29/23 MR#: [id number] Acct: [id number] Name: PAVELDONALDO URIOSTEGUI Francie Rep #: [id number] : 1955 Provider: JOHN Ugarte Age/Sex: 68/F [place] [facility] [place] Status: Signed Assessment and Plan Assessment and Plan (1) Asthma-COPD overlap syndrome: Status: Chronic Plan: Stable, she does not appear to be an exacerbation of asthma/COPD today. No need for prednisone or antibiotic. Continue current maintenance medication, on Trelegy. No additional testing at this time. Contact the office for any new or worsening symptoms. An acute visit and typically be arranged within 1-2 days. Follow-up in 6 months. She has already had her annual influenza vaccination. (2) Respiratory failure with hypoxia: Status: Acute Qualifiers: Chronicity: unspecified Qualified Code(s): J96.91 - Respiratory failure, unspecified with hypoxia Plan: The patient is using and benefiting from oxygen. Continue to utilize to maintain a saturation of 89-92%. Follow-up in 6 months. (3) Rheumatoid arthritis: Status: Chronic Qualifiers: Rheumatoid arthritis location: unspecified site Rheumatoid factor presence: unspecified presence Qualified Code(s): M06.9 - Rheumatoid arthritis, unspecified Plan: Complicates exam, plan, care and prognosis. (4) Tobacco abuse: Status: Chronic Plan: Encourage complete smoking cessation. She is appropriate for LDCT, was due in March 2024. Ordered accordingly. Medications: Refilled fluticasone-umeclidin- vilanter 200-62.5-25 mcg (Trelegy Ellipta) 1 inh inhalation DAILY 3 ea 3RF Z72.0 - Tobacco use albuterol sulfate 90 mcg/actuation (Ventolin HFA) 2 puffs inhalation Q4H PRN PRN #3 3RF Shortness of breath, wheezing R91.1 - Solitary pulmonary nodule Plan Details Follow Up: 04/05/24 ([facility]) HPI 6 M FU Chief Complaint: Routine follow-up HPI Comments Details: This patient presents to the office today for follow-up of her asthma/COPD overlap syndrome with chronic hypoxic respiratory failure. She is ambulatory and currently on supplemental oxygen. She has not recently been seen in the ED or urgent care for any respiratory illness. She has not required any antibiotics or prednisone for any breathing problems. She is compliant with use Trelegy 1 puff daily. She denies any medication side effect such as sore throat or thrush. She continues to smoke cigarettes. She is currently smoking 1/2 pack/day. She admits to smoking marijuana daily also. She is compliant with supplemental oxygen. She uses between 1 and 3 L/min. She reassures me that she does not smoke with supplemental oxygen in place. She does have shortness of breath with exertion. She has a cough that is dry. She denies any hemoptysis. She denies any wheezing, chest tightness, chest pain or palpitations. She also denies any fever, chills or body aches. Intake Vital Signs 05/29/23 08:56 06/18/23 17:06 11/29/23 07:44 Height 5 ft 5.5 in 5 ft 5.5 in 5 ft 5.5 in Weight: 215 lb BMI 35.2 BP 122/78 H Blood Pressure Location Lt brachial Position Sitting Respiration 18 Pulse 91 Pulse Source Monitor Temp 96.8 F L Temperature Source Temporal Artery Pulse Oximetry (%) 94 Oxygen Delivery Method nasal canula Oxygen Flow Rate (L/min) 1 Intake Visit Reasons: 6 M FU Chief Complaint: F/U DME Vendor: Sarai Accompanied by: Self Allergies cefadroxil hydrate ([place] [facility] [place] Allergy (Verified 11/29/23 14:17) Itching Medications ???Medication ???Instructions ???Recorded ???Confirmed ???Type hydrocodone-acetaminop hen 5-325mg 1 tab PO Q6H PRN PRN Pain 07/08/15 11/29/23 History 5mg-325mg naproxen sodium 220 mg tablet 440 mg PO DAILY Pain 07/08/15 11/29/23 History (Aleve) levothyroxine 25 mcg tablet 75 mcg PO DAILY thyroid 04/11/17 11/29/23 History pantoprazole 40 mg tablet,delayed 40 mg PO DAILY reflux 04/23/19 11/29/23 History release sertraline 100 mg tablet 200 mg PO DAILY anxiety and 01/18/21 11/29/23 History depression irbesartan 300 mg tablet 300 mg PO DAILY 12/30/22 11/29/23 History albuterol sulfate 90 mcg/actuation 2 puff inhalation Q4H PRN PRN 11/29/23 11/29/23 Rx aerosol inhaler (Ventolin HFA) Shortness of breath, wheezing ##3 aspirin 81 mg tablet,delayed 81 mg PO QDAY 11/29/23 11/29/23 History release fluticasone fur. 200 mcg-umeclid 1 inh inhalation DAILY #3 ea 11/29/23 11/29/23 Rx 62.5 mcg-vilant 25 mcg inhalat.powder (Trelegy Ellipta) Have you fallen in the past year?: No PFSH Medical History (Reviewed 11/29/23 @ 14:26 by Glendy Ugarte DIELECTRIC PRESS OPERATOR, DIELECTRIC PRESS OPERATOR-C) Anxiety and depression Nonobstructive atherosclerosis of coronary artery Elevated troponin GERD (gastroesophag (more content not included)... Normal [facility] .GFRon 11-16-2023 GFR 97 ml/min/1.73sqm Normal [facility] Comment on above: Result Comment: GFR Population mean for , Non- Americans Ages 20-29 = 116 mL/min/1.73 sq.m. Ages 30-39 = 107 mL/min/1.73 sq.m. Ages 40-49 = 99 mL/min/1.73 sq.m. Ages 50-59 = 93 mL/min/1.73 sq.m. Ages 60-69 = 85 mL/min/1.73 sq.m. Ages 70+ = 75 mL/min/1.73 sq.m. Chronic Kidney Disease: Less than 60 mL/min/1.73 square meters End Stage Renal Disease: Less than 15 mL/min/1.73 square meters Performed By: #### B MP, GFR #### [address] [address] GFR Non- 80 ml/min/1.73sqm Normal [facility] Comment on above: Result Comment: GFR Population mean for , Non- Americans Ages 20-29 = 116 mL/min/1.73 sq.m. Ages 30-39 = 107 mL/min/1.73 sq.m. Ages 40-49 = 99 mL/min/1.73 sq.m. Ages 50-59 = 93 mL/min/1.73 sq.m. Ages 60-69 = 85 mL/min/1.73 sq.m. Ages 70+ = 75 mL/min/1.73 sq.m. Chronic Kidney Disease: Less than 60 mL/min/1.73 square meters End Stage Renal Disease: Less than 15 mL/min/1.73 square meters Performed By: #### B MP, GFR #### [address] [place], [place] [address] BMPon 11-16-2023 BUN/Creatinine Ratio 29 ratio High 7-27 [facility] Comment on above: Performed By: #### B MP, GFR #### [address] [place], [place] [address] Calcium [Mass/Vol] 8.2 mg/dL Low 8.4-10.2 [facility] Comment on above: Performed By: #### B MP, GFR #### [address] [address] Chloride [Moles/Vol] 101 mmol/L Normal 98-107 [facility] [place] Comment on above: Performed By: #### B MP, GFR #### [address] [address] CO2 [Moles/Vol] 28 mmol/L Normal 23-31 [facility] Comment on above: Performed By: #### B MP, GFR #### [address] [address] Creatinine [Mass/Vol] 0.72 mg/dL Normal 0.55-1.02 [facility] Comment on above: Result Comment: Test ing performed on Siemens Dimension EXL analyzer using a modified kinetic Shyla technique. Performed By: #### B MP, GFR #### [address] [address] Electrolyte Balance 10.0 mEq/L Normal 4.0-15.0 [facility] Comment on above: Performed By: #### B MP, GFR #### [address] [address] Glucose [Mass/Vol] 89 mg/dL Normal 80-115 [facility] Comment on above: Performed By: #### B MP, GFR #### [address] [address] Potassium [Moles/Vol] 4.1 mmol/L Normal 3.5-5.1 [facility] Comment on above: Performed By: #### B MP, GFR #### [address] [address] Sodium [Moles/Vol] 139 mmol/L Normal 136-145 [facility] Comment on above: Performed By: #### B MP, GFR #### [address] [address] Urea nitrogen [Mass/Vol] 21 mg/dL High 7-18 [facility] Comment on above: Performed By: #### B MP, GFR #### [address] [place], [place] [address] FT4on 11-16-2023 Free T4 [Mass/Vol] 1.00 ng/dL Normal 0.76-1.46 [facility] Comment on above: Performed By: #### C AION, TSHR, PHOS, BMP, GFR, FT4 #### [address] [address] LABORATORYOrdered By: SYSTEM SYSTEM on 11-16-2023 Calcium [Mass/Vol] 8.2 mg/dL Low 8.4 - 10. 2 mg/dL AO ADM SS Chloride [Moles/Vol] 101 mmol/L Normal 98 - 10 7 mmol/L AO ADM SS CO2 [Moles/Vol] 28 mmol/L Normal 23 - 31 mmol/L AO ADM SS Creatinine [Mass/Vol] 0.72 mg/dL Normal 0.55 - 1.02 mg/dL AO ADM SS Comment on above: Interpretive Data: T esting performed on XDC Dimension EXL analyzer using a modified kinetic Shyla technique. Electrolyte Balance 10.0 mEq/L Normal 4.0 - 15 .0 mEq/L AO ADM SS Free T4 [Mass/Vol] 1.00 ng/dL Normal 0.76 - 1. 46 ng/dL AO ADM SS GFR/1.73 sq M.predicted among blacks MDRD (S/P/Bld) [Vol rate/Area] 97 ml/min/1.73sqm Invalid Interpretation Code AO Chemistry S Comment on above: Interpretive Data: GFR Population mean for , Non- Americans Ages 20-29 = 116 mL/min/1.73 sq.m. Ages 30-39 = 107 mL/min/1.73 sq.m. Ages 40-49 = 99 mL/min/1.73 sq.m. Ages 50-59 = 93 mL/min/1.73 sq.m. Ages 60-69 = 85 mL/min/1.73 sq.m. Ages 70+ = 75 mL/min/1.73 sq.m. Chronic Kidney Disease: Less than 60 mL/min/1.73 square meters End Stage Renal Disease: Less than 15 mL/min/1.73 square meters GFR/1.73 sq M.predicted among non-blacks MDRD (S/P/Bld) [Vol rate/Area] 80 ml/min/1.73sqm Invalid Interpretation Code AO Chemistry S Comment on above: Interpretive Data: GFR Population mean for , Non- Americans Ages 20-29 = 116 mL/min/1.73 sq.m. Ages 30-39 = 107 mL/min/1.73 sq.m. Ages 40-49 = 99 mL/min/1.73 sq.m. Ages 50-59 = 93 mL/min/1.73 sq.m. Ages 60-69 = 85 mL/min/1.73 sq.m. Ages 70+ = 75 mL/min/1.73 sq.m. Chronic Kidney Disease: Less than 60 mL/min/1.73 square meters End Stage Renal Disease: Less than 15 mL/min/1.73 square meters Glucose [Mass/Vol] 89 mg/dL Normal 80 - 115 mg/dL AO ADM SS Phosphate [Mass/Vol] 2.2 mg/dL Low 2.3 - 4 .1 mg/dL AO ADM SS Potassium [Moles/Vol] 4.1 mmol/L Normal 3.5 - 5.1 mmol/L AO ADM SS Sodium [Moles/Vol] 139 mmol/L Normal 136 - 145 mmol/L AO ADM SS TSH Qn 3.28 m[IU]/L Normal 0.36 - 3.74 mcIU/mL AO ADM SS Urea nitrogen [Mass/Vol] 21 mg/dL High 7 - 18 mg/dL AO ADM SS Urea nitrogen/Creatinine [Mass ratio] 29 ratio High 7 - 27 ratio AO ADM SS PHOSon 11-16-2023 Phosphate [Mass/Vol] 2.2 mg/dL Low 2.3-4.1 [facility] Comment on above: Performed By: #### F T4, PHOS, TSH #### [address] [place], [place] [address] TSHon 11-16-2023 TSH Qn 3.28 m[IU]/L Normal 0.36-3.74 [facility] Comment on above: Performed By: #### C AION, TSHR, PHOS, BMP, GFR, FT4 #### [address] [place], [place] [address] CT THORAX W/O CONTRASTon CT THORAX W/O CONTRAST ORIGINAL EXAMINATION: CT OF THE CHEST WITHOUT CONTRAST 08/27/2023 2:25 pm TECHNIQUE: CT of the chest was performed without the administration of intravenous contrast. Multiplanar reformatted images are provided for review. Automated exposure control, iterative reconstruction, and/or weight based adjustment of the mA/kV was utilized to reduce the radiation dose to as low as reasonably achievable. COMPARISON: 03/29/2023 HISTORY: ORDERING SYSTEM PROVIDED HISTORY: Reason for Exam: abnormal CT lung with lung nodule recommending 3mo follow up FINDINGS: There is no axillary or mediastinal lymphadenopathy. Visualized thyroid gland is unremarkable. The heart is normal in size without pericardial effusion. Coronary artery and thoracic aortic atherosclerotic calcifications. The great vessels appear of normal caliber. Minimal secretions are seen within the trachea. Emphysema. Scattered areas of pleuroparenchymal scarring. Mild lower lobe bronchial wall thickening and bronchiectasis. Previously noted 4 mm left upper lobe nodule is not seen on today's exam. Additional 6 mm left lower lobe subpleural nodule is also not seen. A few nodules measuring 2-3 mm appear stable. Stable 1 mm right lower lobe nodule (2, 64). Other sub 4 mm nodules appear stable. New 4 mm right lower lobe nodule (2, 53). New 3 mm right lower lobe nodule (2, 56). New 3 mm right lower lobe juxtapleural nodule (2, 68). Other sub 4 mm new pulmonary nodules. New ground-glass opacity in the right lower lobe on image 73 measures 8 mm. New hazy airspace disease seen in the left lower lobe. Evaluation of the upper abdomen demonstrates nodular hyperplasia of the bilateral adrenal glands, unchanged. No additional findings within the limited evaluation of the upper abdomen. Right Bochdalek hernia. Multilevel degenerative changes of the spine. No acute or aggressive osseous abnormality. IMPRESSION: Multiple new sub 6 mm pulmonary nodules with other stable/resolved nodules as above. Six-month follow-up recommended. . Emphysema. Mild lower lobe bronchial wall thickening and bronchiectasis. New hazy airspace disease in the left lower lobe is likely inflammatory. Follow to resolution Coronary artery atherosclerotic calcifications. I have personally reviewed the images of this examination and agree with the resident's findings and interpretations. Interpreted by: Reilly Espinoza MD Preliminary Report By: Gayle Fritz Electronically signed By Reilly Espinoza MD Dictated Date: 08/29/2023 9:29:06 AM Prelim Date: 08/29/2023 9:47:09 AM Sign Date: 08/29/2023 9:47:09 AM Ordering Provider: BLADE Piper [facility] ([place]) MA MAMMOGRAM SCREENING BILAT ERAL W/TOMOon 08-28-2023 MA MAMMOGRAM SCREENING BILATERAL W/RONEN ORIGINAL FROM: [facility] [address] [place], [place] [address] PROCEDURE FOR: DONALDO ZHAO [address] [place] [address] Home: PID#: [id number] Exam#: [id number] : 1955 Age: 68 TO: BLADE BOND [address] [place] [address] Fax: NO FAX EXAMINATION: SCREENING DIGITAL BILATERAL MAMMOGRAM WITH TOMOSYNTHESIS, 08/27/2023 1:39 pm TECHNIQUE: Screening mammography of the bilateral breasts was performed with tomosynthesis. 2D standard and 3D tomosynthesis combination imaging performed through both breasts in the MLO and CC projection. Computer aided detection was utilized in the interpretation of this exam. COMPARISON: June 14, 2020, February 04, 2016 HISTORY: Breast cancer screening. FINDINGS: BREAST DENSITY: There are scattered areas of fibroglandular density. There is no suspicious mass, architectural distortion or microcalcification. Fibroglandular pattern is stable. IMPRESSION: No mammographic evidence of malignancy. Continued screening with annual mammograms is recommended. Deep White risk calculations, generated with the history provided, report this patient's 10 year risk and lifetime risk for developing breast cancer at 4.3% and 7.4%, respectively. Based on this assessment tool, if the patient's calculated lifetime risk is below 20%, then the patient is considered at average risk for developing breast cancer. If the patient's calculated lifetime risk is at or above 20%, then the patient is considered high risk for developing breast cancer and may be a candidate for supplemental breast MRI screening in addition to annual mammographic screening per the [employer]. BIRADS: MAMMOGRAM BI-RADS: 1: Negative RECALL: 1 year screening RECALL TYPE: mammo LETTER SENT: Normal BI-RADS 1 and 2 Interpreted by: Keren Flores Preliminary Report By: Keren Flores Electronically signed By Keren Flores Dictated Date: 08/28/2023 8:12:32 AM Prelim Date: 08/28/2023 8:14:51 AM Sign Date: 08/28/2023 8:14:51 AM Ordering Provider: BLADE BOND [employer] Supervisor: ARMIDA RAYMOND RT(R) RDMS letter sent: Normal BI-RADS 1 and 2 Mammogram BI-RADS: 1 Negative Normal [facility] ([place]) .Auto Diffon 08-27-2023 Basophil, Absolute 0.0 10 3/mcL Normal 0.0-0.2 [facility] ([place]) Comment on above: Performed By: #### T SH, MG, LIPID, A1C, VIDH, GFR, ADIFF, CBC, ANEU, FT4, CMP #### [address] [address] Basophils/100 WBC (Bld) 0.4 % Normal 0.0-2.5 [facility] ([place]) Comment on above: Performed By: #### T SH, MG, LIPID, A1C, VIDH, GFR, ADIFF, CBC, ANEU, FT4, CMP #### [address] [address] Eosinophil, Absolute 0.1 10 3/mcL Normal 0.0-0.4 [facility] ([place]) Comment on above: Performed By: #### T SH, MG, LIPID, A1C, VIDH, GFR, ADIFF, CBC, ANEU, FT4, CMP #### [address] [address] Eosinophils/100 WBC (Bld) 1.1 % Normal 0.0-7.0 [facility] ([place]) Comment on above: Performed By: #### T SH, MG, LIPID, A1C, VIDH, GFR, ADIFF, CBC, ANEU, FT4, CMP #### [address] [address] Lymphocyte, Absolute 1.2 10 3/mcL Normal 0.8-3.9 [facility] ([place]) Comment on above: Performed By: #### T SH, MG, LIPID, A1C, VIDH, GFR, ADIFF, CBC, ANEU, FT4, CMP #### [address] [address] Lymphocytes/100 WBC (Bld) 13.7 % Normal 10.0-50.0 [facility] ([place]) Comment on above: Performed By: #### T SH, MG, LIPID, A1C, VIDH, GFR, ADIFF, CBC, ANEU, FT4, CMP #### [address] [address] Monocyte, Absolute 0.4 10 3/mcL Normal 0.2-1.0 [facility] ([place]) Comment on above: Performed By: #### T SH, MG, LIPID, A1C, VIDH, GFR, ADIFF, CBC, ANEU, FT4, CMP #### [address] [address] Monocytes/100 WBC (Bld) 4.7 % Normal 1.7-13.0 [facility] ([place]) Comment on above: Performed By: #### T SH, MG, LIPID, A1C, VIDH, GFR, ADIFF, CBC, ANEU, FT4, CMP #### [address] [address] Neutrophils/100 WBC (Bld) 80.1 % High 37.0-80.0 [facility] ([place]) Comment on above: Performed By: #### T SH, MG, LIPID, A1C, VIDH, GFR, ADIFF, CBC, ANEU, FT4, CMP #### [address] [address] .GFRon 08-27-2023 GFR 85 ml/min/1.73sqm Normal [facility] ([place]) Comment on above: Result Comment: GFR Population mean for , Non- Americans Ages 20-29 = 116 mL/min/1.73 sq.m. Ages 30-39 = 107 mL/min/1.73 sq.m. Ages 40-49 = 99 mL/min/1.73 sq.m. Ages 50-59 = 93 mL/min/1.73 sq.m. Ages 60-69 = 85 mL/min/1.73 sq.m. Ages 70+ = 75 mL/min/1.73 sq.m. Chronic Kidney Disease: Less than 60 mL/min/1.73 square meters End Stage Renal Disease: Less than 15 mL/min/1.73 square meters Performed By: #### T SH, MG, LIPID, A1C, VIDH, GFR, ADIFF, CBC, ANEU, FT4, CMP ####[place] [address] [place], [place] [address] GFR Non- 70 ml/min/1.73sqm Normal [facility] ([place]) Comment on above: Result Comment: GFR Population mean for , Non- Americans Ages 20-29 = 116 mL/min/1.73 sq.m. Ages 30-39 = 107 mL/min/1.73 sq.m. Ages 40-49 = 99 mL/min/1.73 sq.m. Ages 50-59 = 93 mL/min/1.73 sq.m. Ages 60-69 = 85 mL/min/1.73 sq.m. Ages 70+ = 75 mL/min/1.73 sq.m. Chronic Kidney Disease: Less than 60 mL/min/1.73 square meters End Stage Renal Disease: Less than 15 mL/min/1.73 square meters Performed By: #### T SH, MG, LIPID, A1C, VIDH, GFR, ADIFF, CBC, ANEU, FT4, CMP ####[place] [address] [place], [place] [address] .NEUABSon 08-27-2023 Neutrophil, Absolute 7.2 10 3/mcL High 2.9-6.2 [facility] ([place]) Comment on above: Performed By: #### T SH, MG, LIPID, A1C, VIDH, GFR, ADIFF, CBC, ANEU, FT4, CMP ####[place] [address] [place], [place] [address] A1Con 08-27-2023 HbA1c (Bld) [Mass fraction] 5.5 % Normal 4.3-6.4 [facility] ([place]) Comment on above: Performed By: #### T SH, MG, LIPID, A1C, VIDH, GFR, ADIFF, CBC, ANEU, FT4, CMP ####[address] [place], [place] [address] BD BONE DENSITY DEXA AXIAL S [facility] 08-27-2023 BD BONE DENSITY DEXA AXIAL SKELETON ORIGINAL EXAMINATION: BONE DENSITOMETRY 08/27/2023 2:19 pm TECHNIQUE: A bone density dual x-ray absorptiometry (DEXA) scan was performed of the axial (e.g. hips, spine) and/or appendicular (e.g. radius) skeleton as appropriate. COMPARISON: 06/14/2020 HISTORY: ORDERING SYSTEM PROVIDED HISTORY: Reason for Exam: Osteoporosis Screening FINDINGS: T Score Left Femoral Neck: -1.9 Left Femoral Neck: 0.641 (g/cm2) T Score Left Hip: -1.1 Left Hip: 0.806 (g/cm2) T Score Lumbar Spine: 0.2 Lumbar Spine: 1.074 (g/cmd2) BMD Change from previous Hip: 1.8 % BMD Change from previous Lumbar Spine:-2.9 % FRAX: 10 year fracture risk assessment Major osteoporotic fracture: 13% Hip fracture: 3.7% IMPRESSION: Osteopenia by WHO criteria. World Health Organization criteria: (Comparing with young normal sex matched population) - Normal: T-score at or above -1 SD (standard deviation) - Osteopenia: T-score between -1 and -2.5 SD - Osteoporosis: T-score at or below -2.5 SD The NOF recommends that FDA-approved medical therapies be considered in post-menopausal women and men age >/= 50 years with a: * Hip or vertebral fracture, or * T-score of /= 20% for major osteoporotic fractures or * >/= 3% for hip fractures All treatment decisions require clinical judgement and consideration of individual patient factors, including patient preferences, comorbidities, previous drug use, risk factors not captured in the FRAX registered model (e.g., frailty, falls, vitamin D deficiency, increased bone turnover, interval significant decline in bone density) and possible under- or over-estimation of fracture risk by FRAX. Interpreted by: Kingston Ward DO Preliminary Report By: Kingston Ward DO Electronically signed By Kingston Ward DO Dictated Date: 08/27/2023 4:17:52 PM Prelim Date: 08/27/2023 4:18:37 PM Sign Date: 08/27/2023 4:18:37 PM Ordering Provider: BLADE Piper [facility] ([place]) CBCjulissa 08-27-2023 Erythrocyte distribution width (RBC) [Ratio] 15.5 % High 11.5-14.5 [facility]) Comment on above: Performed By: #### T SH, MG, LIPID, A1C, VIDH, GFR, ADIFF, CBC, ANEU, FT4, CMP #### [place] [id number] Hematocrit (Bld) [Volume fraction] 36.9 % Low 37.0-47.0 [facility] ([place]) Comment on above: Performed By: #### T SH, MG, LIPID, A1C, VIDH, GFR, ADIFF, CBC, ANEU, FT4, CMP #### [place] [address] Hgb 12.1 G/dL Normal 12.0-16.0 [facility] ([place]) Comment on above: Performed By: #### T SH, MG, LIPID, A1C, VIDH, GFR, ADIFF, CBC, ANEU, FT4, CMP #### [place] [id number] MCH (RBC) [Entitic mass] 27.7 pg Normal 27.0-31.2 [facility]) Comment on above: Performed By: #### T SH, MG, LIPID, A1C, VIDH, GFR, ADIFF, CBC, ANEU, FT4, CMP #### [place] [address] MCHC 32.7 G/dL Low 33.0-37.0 [facility] ([place]) Comment on above: Performed By: #### T SH, MG, LIPID, A1C, VIDH, GFR, ADIFF, CBC, ANEU, FT4, CMP #### [address] [address] MCV (RBC) [Entitic vol] 84.6 fL Normal 80.0-94.0 [facility] ([place]) Comment on above: Performed By: #### T SH, MG, LIPID, A1C, VIDH, GFR, ADIFF, CBC, ANEU, FT4, CMP #### [address] [address] Platelet 350 10 3/mcL Normal 130-400 [facility] ([place]) Comment on above: Performed By: #### T SH, MG, LIPID, A1C, VIDH, GFR, ADIFF, CBC, ANEU, FT4, CMP #### [address] [address] Platelet mean volume (Bld) [Entitic vol] 7.9 fL Normal 7.4-10.4 [facility] ([place]) Comment on above: Performed By: #### T SH, MG, LIPID, A1C, VIDH, GFR, ADIFF, CBC, ANEU, FT4, CMP #### [address] [address] RBC 4.36 10 6/mcL Normal 4.20-5.40 [facility] ([place]) Comment on above: Performed By: #### T SH, MG, LIPID, A1C, VIDH, GFR, ADIFF, CBC, ANEU, FT4, CMP #### [address] [address] WBC 8.9 10 3/mcL Normal 4.6-10.8 [facility] ([place]) Comment on above: Performed By: #### T SH, MG, LIPID, A1C, VIDH, GFR, ADIFF, CBC, ANEU, FT4, CMP #### [address] [address] CMPon 08-27-2023 Albumin Level 3.6 G/dL Normal 3.4-4.8 [facility] ([place]) Comment on above: Performed By: #### T SH, MG, LIPID, A1C, VIDH, GFR, ADIFF, CBC, ANEU, FT4, CMP ####[address] [place], [place] [address] Albumin/Globulin [Mass ratio] 0.9 {ratio} Low 1.1-2.5 [facility] ([place]) Comment on above: Performed By: #### T SH, MG, LIPID, A1C, VIDH, GFR, ADIFF, CBC, ANEU, FT4, CMP ####[address] [place], [place] [address] ALP [Catalytic activity/Vol] 166 U/L High 40-135 [facility] ([place]) Comment on above: Performed By: #### T SH, MG, LIPID, A1C, VIDH, GFR, ADIFF, CBC, ANEU, FT4, CMP ####[address] [place], [place] [address] ALT [Catalytic activity/Vol] 17 U/L Normal 14-59 [facility] ([place]) Comment on above: Performed By: #### T SH, MG, LIPID, A1C, VIDH, GFR, ADIFF, CBC, ANEU, FT4, CMP ####[address] [place], [place] [address] AST [Catalytic activity/Vol] 12 U/L Normal 10-40 [facility] ([place]) Comment on above: Performed By: #### T SH, MG, LIPID, A1C, VIDH, GFR, ADIFF, CBC, ANEU, FT4, CMP ####[address] [place], [place] [address] Bili Total 0.4 mg/dL Normal 0.2-1.0 [facility] ([place]) Comment on above: Result Comment: Use of this assay is not recommended for patients undergoing treatment with eltrombopag due to the potential for falsely elevated results. Performed By: #### T SH, MG, LIPID, A1C, VIDH, GFR, ADIFF, CBC, ANEU, FT4, CMP ####[address] [place], [place] [address] BUN/Creatinine Ratio 30 ratio High 7-27 [facility] ([place]) Comment on above: Performed By: #### T SH, MG, LIPID, A1C, VIDH, GFR, ADIFF, CBC, ANEU, FT4, CMP ####[address] [place], [place] [address] Calcium [Mass/Vol] 9.0 mg/dL Normal 8.4-10.2 [facility] ([place]) Comment on above: Performed By: #### T SH, MG, LIPID, A1C, VIDH, GFR, ADIFF, CBC, ANEU, FT4, CMP ####[address] [place], [place] [address] Chloride [Moles/Vol] 100 mmol/L Normal 98-107 [facility] ([place]) Comment on above: Performed By: #### T SH, MG, LIPID, A1C, VIDH, GFR, ADIFF, CBC, ANEU, FT4, CMP ####[address] [place], [place] [address] CO2 [Moles/Vol] 33 mmol/L High 23-31 [facility] ([place]) Comment on above: Performed By: #### T SH, MG, LIPID, A1C, VIDH, GFR, ADIFF, CBC, ANEU, FT4, CMP ####[address] [place], [place] [address] Creatinine [Mass/Vol] 0.81 mg/dL Normal 0.55-1.02 [facility] ([place]) Comment on above: Performed By: #### T SH, MG, LIPID, A1C, VIDH, GFR, ADIFF, CBC, ANEU, FT4, CMP ####[address] [place], [place] [address] Electrolyte Balance 5.0 mEq/L Normal 4.0-15.0 [facility] ([place]) Comment on above: Performed By: #### T SH, MG, LIPID, A1C, VIDH, GFR, ADIFF, CBC, ANEU, FT4, CMP ####[address] [place], [place] [address] Globulin 3.9 G/dL Normal [facility] ([place]) Comment on above: Performed By: #### T SH, MG, LIPID, A1C, VIDH, GFR, ADIFF, CBC, ANEU, FT4, CMP ####[address] [place], [place] [address] Glucose [Mass/Vol] 102 mg/dL Normal 80-115 [facility] ([place]) Comment on above: Performed By: #### T SH, MG, LIPID, A1C, VIDH, GFR, ADIFF, CBC, ANEU, FT4, CMP ####[address] [place], [place] [address] Potassium [Moles/Vol] 4.4 mmol/L Normal 3.5-5.1 [facility] ([place]) Comment on above: Performed By: #### T SH, MG, LIPID, A1C, VIDH, GFR, ADIFF, CBC, ANEU, FT4, CMP ####[address] [place], [place] [address] Sodium [Moles/Vol] 138 mmol/L Normal 136-145 [facility] ([place]) Comment on above: Performed By: #### T SH, MG, LIPID, A1C, VIDH, GFR, ADIFF, CBC, ANEU, FT4, CMP ####[address] [place], [place] [address] Total Protein 7.5 G/dL Normal 6.4-8.2 [facility] ([place]) Comment on above: Performed By: #### T SH, MG, LIPID, A1C, VIDH, GFR, ADIFF, CBC, ANEU, FT4, CMP ####[address] [place], [place] [address] Urea nitrogen [Mass/Vol] 24 mg/dL High 7-18 [facility] ([place]) Comment on above: Performed By: #### T SH, MG, LIPID, A1C, VIDH, GFR, ADIFF, CBC, ANEU, FT4, CMP ####[address] [place], [place] [address] DLDLon 08-27-2023 Direct LDL Cholesterol 76 mg/dL Normal 0-99 [facility] ([place]) Comment on above: Result Comment: Dire ct LDL Cholesterol Reference Interval: Optimal: <100 mg/dL Near Optimal/above optimal: 100-129 mg/dL Borderline high: 130-159 mg/dL High: 160-189 mg/dL Very high: >=190 mg/dL Performed By: #### D LDL ####[address] [place], [place] [address] FT4on 08-27-2023 Free T4 [Mass/Vol] 1.21 ng/dL Normal 0.76-1.46 [facility] ([place]) Comment on above: Performed By: #### T SH, MG, LIPID, A1C, VIDH, GFR, ADIFF, CBC, ANEU, FT4, CMP ####[address] [place], [place] [address] LABORATORYOrdered By: Marcella Mcbride on 08-27-2023 Cholesterol in LDL [Mass/Vol] 76 mg/dL Normal 0 - 99 mg/dL AO ADM SS Comment on above: Interpretive Data: D irect LDL Cholesterol Reference Interval: Optimal: <100 mg/dL Near Optimal/above optimal: 100-129 mg/dL Borderline high: 130-159 mg/dL High: 160-189 mg/dL Very high: >=190 mg/dL Cholesterol [Mass/Vol] 175 mg/dL Normal 0 - 2 00 mg/dL AO ADM SS Comment on above: Interpretive Data: C holesterol Reference Interval: Less than 200 Desirable 200-239 Borderline high risk 240 and above High risk Cholesterol in HDL [Mass/Vol] 75 mg/dL High 40 - 60 mg/dL AO ADM SS Cholesterol in LDL [Mass/Vol] 82 mg/dL Normal 0 - 130 mg/dL AO ADM SS Triglyceride [Mass/Vol] 92 mg/dL Normal 0 - 150 mg/dL AO ADM SS Comment on above: Interpretive Data: T riglyceride Reference Interval: Less than 150 Normal 150-199 Borderline high risk 200-499 High risk 500 or higher Very high risk LABORATORYOrdered By: SYSTEM SYSTEM on 08-27-2023 25-hydroxyvitamin D3 [Mass/Vol] 34.0 ng/mL Invalid Interpretation Code AO ADM SS Comment on above: Interpretive Data: I nterpretive Values Based on Total 25(OH) Vitamin D: Deficient <20 ng/mL Insufficient 20 - <30 ng/mL Sufficient 30-100 ng/mL Albumin BCP dye [Mass/Vol] 3.6 G/dL Normal 3.4 - 4.8 G/dL AO ADM SS Albumin/Globulin [Mass ratio] 0.9 {ratio} Low 1.1 - 2.5 ratio AO ADM SS ALP [Catalytic activity/Vol] 166 U/L High 40 - 135 U/L AO ADM SS ALT With P-5'-P [Catalytic activity/Vol] 17 U/L Normal 14 - 59 U/L AO ADM SS AST With P-5'-P [Catalytic activity/Vol] 12 U/L Normal 10 - 40 U/L AO ADM SS Basophil, Absolute 0.0 103/mcL Normal 0.0 - 0.2 10^3/mcL AO Workflow SS Basophils/100 WBC (Bld) 0.4 % Normal 0.0 - 2.5 % AO Workflow SS Bilirubin [Mass/Vol] 0.4 mg/dL Normal 0.2 - 1 .0 mg/dL AO ADM SS Comment on above: Interpretive Data: U se of this assay is not recommended for patients undergoing treatment with eltrombopag due to the potential for falsely elevated results. Calcium [Mass/Vol] 9.0 mg/dL Normal 8.4 - 10. 2 mg/dL AO ADM SS Chloride [Moles/Vol] 100 mmol/L Normal 98 - 10 7 mmol/L AO ADM SS CO2 [Moles/Vol] 33 mmol/L High 23 - 31 mmol/L AO ADM SS Creatinine [Mass/Vol] 0.81 mg/dL Normal 0.55 - 1.02 mg/dL AO ADM SS Electrolyte Balance 5.0 mEq/L Normal 4.0 - 15 .0 mEq/L AO ADM SS Eosinophil, Absolute 0.1 103/mcL Normal 0.0 - 0 .4 10^3/mcL AO Workflow SS Eosinophils/100 WBC (Bld) 1.1 % Normal 0.0 - 7.0 % AO Workflow SS Erythrocyte distribution width (RBC) [Ratio] 15.5 % High 11.5 - 14.5 % AO Workflow SS Free T4 [Mass/Vol] 1.21 ng/dL Normal 0.76 - 1. 46 ng/dL AO ADM SS GFR/1.73 sq M.predicted among blacks MDRD (S/P/Bld) [Vol rate/Area] 85 ml/min/1.73sqm Invalid Interpretation Code AO Chemistry S Comment on above: Interpretive Data: GFR Population mean for , Non- Americans Ages 20-29 = 116 mL/min/1.73 sq.m. Ages 30-39 = 107 mL/min/1.73 sq.m. Ages 40-49 = 99 mL/min/1.73 sq.m. Ages 50-59 = 93 mL/min/1.73 sq.m. Ages 60-69 = 85 mL/min/1.73 sq.m. Ages 70+ = 75 mL/min/1.73 sq.m. Chronic Kidney Disease: Less than 60 mL/min/1.73 square meters End Stage Renal Disease: Less than 15 mL/min/1.73 square meters GFR/1.73 sq M.predicted among non-blacks MDRD (S/P/Bld) [Vol rate/Area] 70 ml/min/1.73sqm Invalid Interpretation Code DIAZ Chemistry S Comment on above: Interpretive Data: GFR Population mean for , Non- Americans Ages 20-29 = 116 mL/min/1.73 sq.m. Ages 30-39 = 107 mL/min/1.73 sq.m. Ages 40-49 = 99 mL/min/1.73 sq.m. Ages 50-59 = 93 mL/min/1.73 sq.m. Ages 60-69 = 85 mL/min/1.73 sq.m. Ages 70+ = 75 mL/min/1.73 sq.m. Chronic Kidney Disease: Less than 60 mL/min/1.73 square meters End Stage Renal Disease: Less than 15 mL/min/1.73 square meters Globulin 3.9 G/dL Invalid Interpretation Code AO ADM SS Glucose [Mass/Vol] 102 mg/dL Normal 80 - 115 mg/dL AO ADM SS HbA1c (Bld) [Mass fraction] 5.5 % Normal 4.3 - 6.4 % AO ADM SS Hematocrit (Bld) [Volume fraction] 36.9 % Low 37.0 - 47.0 % AO Workflow SS Hemoglobin (Bld) [Mass/Vol] 12.1 G/dL Normal 12.0 - 16.0 G/dL AO Workflow SS Lymphocyte, Absolute 1.2 103/mcL Normal 0.8 - 3 .9 10^3/mcL AO Workflow SS Lymphocytes/100 WBC (Bld) 13.7 % Normal 10.0 - 50.0 % AO Workflow SS Magnesium [Mass/Vol] 1.9 mg/dL Normal 1.8 - 2 .4 mg/dL AO ADM SS MCH (RBC) [Entitic mass] 27.7 pg Normal 27. 0 - 31.2 pg AO Workflow SS MCHC 32.7 G/dL Low 33.0 - 37.0 G/dL AO Workflow SS MCV (RBC) [Entitic vol] 84.6 fL Normal 80.0 - 94.0 fL AO Workflow SS Monocyte, Absolute 0.4 103/mcL Normal 0.2 - 1.0 10^3/mcL AO Workflow SS Monocytes/100 WBC (Bld) 4.7 % Normal 1.7 - 13.0 % AO Workflow SS Neutrophil, Absolute 7.2 103/mcL High 2.9 - 6 .2 10^3/mcL AO Workflow SS Neutrophils/100 WBC (Bld) 80.1 % High 37.0 - 80.0 % AO Workflow SS Platelet mean volume (Bld) [Entitic vol] 7.9 fL Normal 7.4 - 10.4 fL AO Workflow SS Platelets (Bld) [#/Vol] 350 103/mcL Normal 130 - 400 10^3/mcL AO Workflow SS Potassium [Moles/Vol] 4.4 mmol/L Normal 3.5 - 5.1 mmol/L AO ADM SS Protein [Mass/Vol] 7.5 G/dL Normal 6.4 - 8.2 G/dL AO ADM SS RBC (Bld) [#/Vol] 4.36 106/mcL Normal 4.20 - 5.4 0 10^6/mcL AO Workflow SS Sodium [Moles/Vol] 138 mmol/L Normal 136 - 145 mmol/L AO ADM SS TSH Qn 4.45 m[IU]/L High 0.36 - 3.74 mcIU/mL AO ADM SS Urea nitrogen [Mass/Vol] 24 mg/dL High 7 - 18 mg/dL AO ADM SS Urea nitrogen/Creatinine [Mass ratio] 30 ratio High 7 - 27 ratio AO ADM SS WBC (Bld) [#/Vol] 8.9 103/mcL Normal 4.6 - 10.8 10^3/mcL AO Workflow SS LIPIDon 08-27-2023 Cholesterol [Mass/Vol] 175 mg/dL Normal 0-200 [facility] ([place]) Comment on above: Result Comment: Chol esterol Reference Interval: Less than 200 Desirable 200-239 Borderline high risk 240 and above High risk Performed By: #### T SH, MG, LIPID, A1C, VIDH, GFR, ADIFF, CBC, ANEU, FT4, CMP ####[address] [place], [place] [address] Cholesterol in HDL [Mass/Vol] 75 mg/dL High 40-60 [facility] ([place]) Comment on above: Performed By: #### T SH, MG, LIPID, A1C, VIDH, GFR, ADIFF, CBC, ANEU, FT4, CMP ####[address] [place], [place] [address] Cholesterol in LDL [Mass/Vol] 82 mg/dL Normal 0-130 [facility] ([place]) Comment on above: Performed By: #### T SH, MG, LIPID, A1C, VIDH, GFR, ADIFF, CBC, ANEU, FT4, CMP ####[address] [place], [place] [address] Triglyceride [Mass/Vol] 92 mg/dL Normal 0-150 [facility] ([place]) Comment on above: Result Comment: Trig lyceride Reference Interval: Less than 150 Normal 150-199 Borderline high risk 200-499 High risk 500 or higher Very high risk Performed By: #### T SH, MG, LIPID, A1C, VIDH, GFR, ADIFF, CBC, ANEU, FT4, CMP ####[address] [place], [place] [address] MGon 08-27-2023 Magnesium [Mass/Vol] 1.9 mg/dL Normal 1.8-2.4 [facility] ([place]) Comment on above: Performed By: #### T SH, MG, LIPID, A1C, VIDH, GFR, ADIFF, CBC, ANEU, FT4, CMP ####[address] [place], [place] [address] TSHon 08-27-2023 TSH Qn 4.45 m[IU]/L High 0.36-3.74 [facility] ([place]) Comment on above: Performed By: #### T SH, MG, LIPID, A1C, VIDH, GFR, ADIFF, CBC, ANEU, FT4, CMP ####[address] [place], [place] [address] VIDHon 08-27-2023 Vit. D 25-Hydroxy 34.0 ng/mL Normal [facility] ([place]) Comment on above: Result Comment: Inte rpretive Values Based on Total 25(OH) Vitamin D: Deficient <20 ng/mL Insufficient 20 - <30 ng/mL Sufficient 30-100 ng/mL Performed By: #### T SH, MG, LIPID, A1C, VIDH, GFR, ADIFF, CBC, ANEU, FT4, CMP ####[address] [place], [place] [address] Absolute lymphocyte countOrd ered By: Danilo Rubio on 06-18-2023 Lymphocytes Auto (Unsp spec) [#/Vol] 0.97 10*3/uL 0.83-4.51 [facility] Automated lymphocyte count a s percentage of total leukocytesOrdered By: Danilo Rubio on 06-18-2023 Lymphocytes/100 WBC Auto (Unsp spec) 9.4 % 19-41 [facility] Basophil percentageOrdered B y: Danilo Rubio on 06-18-2023 Basophil percentage 0 SEEN /hpf 0-5 [facility] Basophils/100 WBC (Bld) 0.4 % 0-1 [facility] Chloride [Moles/Vol] 101 mmol/L 98-107 [facility] Eosinophils/100 WBC (Bld) 1.1 % 0-5 [facility] Glucose [Mass/Vol] 125 mg/dL 74-106 [facility] Comment on above: Fasting Glucose resu lt from 100 to 125 mg/dL suggests IMPAIRED HOMEOSTASIS per A.D.A. criteria. Hemoglobin (Bld) [Mass/Vol] 11.5 g/dL 12.0-15.0 [facility] Monocytes/100 WBC (Bld) 4.8 % 0-10 [facility] Neutrophils (Bld) [#/Vol] 8.5 10*3/uL 2.0-7.7 [facility] Neutrophils/100 WBC (Bld) 82.9 % 47-70 [facility] Potassium [Moles/Vol] 4.3 mmol/L 3.5-5.1 [facility] Comment on above: Moderate Hemolysis, Result may be falsely increased. Sodium [Moles/Vol] 135 mmol/L 136-145 [facility] WBC (Bld) [#/Vol] 10.3 10*3/uL 4.4-11.0 [facility] Bilirubin Test strip Ql (U)O rdered By: Danilo Rubio on 06-18-2023 Bilirubin Ql (U) Negative Negative [facility] Blood manual differential co mment interpretation (narrative result)Ordered By: Danilo Rubio on 06-18-2023 Manual differential comment Anthony (Bld) [Interp] See comment [facility] Comment on above: Please note: For thi s sample, a platelet estimate is provided rather than a platelet count due to platelet clumping. Other parameters associated with this sample are not affected by platelet clumping. If a more accurate platelet count is required, a redraw of the patient will be necessary. Blood platelet adequacy dete ction by light microscopyOrdered By: Danilo Rubio on 06-18-2023 Platelets LM Ql (Bld) ADEQUATE ADEQ [facility] Determination of erythrocyte mean corpuscular volume (MCV)Ordered By: Danilo Rubio on 06-18-2023 MCV (RBC) [Entitic vol] 85.6 fL 81-99 [facility] Erythrocyte distribution wid th ratioOrdered By: Danilo Rubio on 06-18-2023 Erythrocyte distribution width (RBC) [Ratio] 14.0 % 11.6-14.6 [facility] Erythrocyte distribution wid th standard deviationOrdered By: Danilo Rubio on 06-18-2023 Erythrocyte distribution width (RBC) [Entitic vol] 43.8 fL 35.1-43.9 [facility] Hematocrit Auto (Bld) [Volum e fraction]Ordered By: Danilo Rubio on 06-18-2023 Hematocrit (Bld) [Volume fraction] 37.4 % 37-47 [facility] Immature granulocytes/100 WB C Auto (Bld)Ordered By: Danilo Rubio on 06-18-2023 Immature granulocytes/100 WBC (Bld) 1.400 % 0.0-0.9 [facility] Comment on above: IG% - Immature Granu locytes (promyelocytes, myelocytes and metamyelocytes) > 1% indicates that a LEFT SHIFT is Present. Ketones Test strip Ql (U)Ord ered By: Danilo Rubio on 06-18-2023 Ketones Ql (U) 5 mg/dl Negative [facility] Laboratory - Chemistry and C hemistry - challengeOrdered By: Danilo Rubio on 06-18-2023 CO2 [Moles/Vol] 30.0 mmol/L 21.0-32.0 [facility] Urea nitrogen/Creatinine [Mass ratio] 18.0 mg/mg 10-20 [facility] - Hematology and Cell countsOrdered By: Danilo Rubio on 06-18-2023 MCH (RBC) [Entitic mass] 26.3 pg 27.0-32.0 [facility] MCHC (RBC) [Mass/Vol] 30.7 g/dL 32- [facility] Nucleated RBC/100 WBC (Bld) [Ratio] 0 % 0-5 [facility] Platelet mean volume (Bld) [Entitic vol] 10.5 fL 6.2-12.0 [facility] - Microbiology an d Antimicrobial susceptibilityOrdered By: Danilo Rubio on 06-18-2023 SARS-CoV-2 (COVID-19) RNA LORI+probe Ql (Unsp spec) [facility] Mucus LM Ql (Urine sed)Order ed By: Danilo Rubio on 06-18-2023 Mucus Ql (Urine sed) 1+ /hpf [facility] Nitrite Test strip Ql (U)Ord ered By: Danilo Rubio on 06-18-2023 Nitrite Ql (U) Negative Negative [facility] No Panel InformationOrdered By: Danilo Rubio on 06-18-2023 Urine RBC 0-5 SEEN /hpf 0-5 [facility] Estimated GFR (MDRD) Amer 113 mL/min >60 [facility] Comment on above: GFR Calc Estimated GFR (MDRD) Non-Af Amer 93 mL/min >60 [facility] Comment on above: Non- GFR Calc Platelet Count TNP [facility] Comment on above: Test not performedPl ease note: For this sample, a platelet estimate is provided rather than a platelet count due to platelet clumping. Other parameters associated with this sample are not affected by platelet clumping. If a more accurate platelet count is required, a redraw of the patient will be necessary. Troponin I High Sensitivity 6 pg/mL 3.0-54.0 [facility] Comment on above: Please Note: New Irais t Units and Gender Specific Reference Ranges. For more information see Policy Stat Procedure [place] High Sensitivity Troponin (TNIH) and attachments. Protein Test strip Ql (U)Ord ered By: Danilo Rubio on 06-18-2023 Protein Ql (U) 30 mg/dl Negative [facility] RBC Auto (Bld) [#/Vol]Ordere d By: Danilo Rubio on 06-18-2023 RBC (Bld) [#/Vol] 4.37 10*6/uL 4.2-5.4 [facility] Serum or plasma calcium tia urement (mass/volume)Ordered By: Danilo Rubio on 06-18-2023 Calcium [Mass/Vol] 9.4 mg/dL 8.5-10.1 [facility] Serum or plasma creatinine m easurement (mass/volume)Ordered By: Danilo Rubio on 06-18-2023 Creatinine [Mass/Vol] 0.67 mg/dL 0.55-1.02 [facility] Comment on above: The validity of the calculated GFR & GFRAA in patients over 70 years has not been determined. Clinical correlation is essential. Serum or plasma urea nitroge n measurement (mass/volume)Ordered By: Danilo Rubio on 06-18-2023 Urea nitrogen [Mass/Vol] 12 mg/dL 7-18 [facility] Squamous epithelial cells de tection in urine sediment by light microscopyOrdered By: Danilo Rubio on 06-18-2023 Epithelial cells.squamous LM Ql (Urine sed) 0 SEEN /hpf 5-10 [facility] Thin prep Papanicolaou smear with manual screeningOrdered By: Danilo Rubio on 06-18-2023 Thin prep Papanicolaou smear with manual screening 4 5-15 [facility] Urine blood detectionOrdered By: Danilo Rubio on 06-18-2023 RBC Ql (U) 50 /ul Negative [facility] Urine clarityOrdered By: Nayeli Rubio on 06-18-2023 Clarity (U) Clear Clear [facility] Urine color determinationOrd ered By: Danilo Rubio on 06-18-2023 Color (U) Yellow Yellow [facility] Urine glucose detectionOrder ed By: Danilo Rubio on 06-18-2023 Glucose Ql (U) Normal mg/dl Normal [facility] Urine leukocyte esterase det ection by dipstickOrdered By: Danilo Ruibo on 06-18-2023 Leukocyte esterase Test strip Ql (U) 25 /ul Negative [facility] Urine pHOrdered By: Danilo blake on 06-18-2023 pH (U) 6.0 [pH] 5.0 - 8.0 [facility] Urine sediment bacteria coun t by microscopy (number/high power field)Ordered By: Danilo Rubio on 06-18-2023 Bacteria LM.HPF (Urine sed) [#/Area] 0 /[HPF] None Seen [facility] Urine specific gravity measu rementOrdered By: Danilo Rubio on 06-18-2023 Specific gravity (U) [Rel density] 1.015 1.002-1.030 [facility] Urine urobilinogen measureme ntOrdered By: Danilo Rubio on 06-18-2023 Urobilinogen Ql (U) 4 mg/dl Normal [facility] CT THORAX W/ CONTRASTon 03-09 CT THORAX W/ CONTRAST ORIGINAL EXAMINATION: CT CHEST WITH CONTRAST 03/29/2023 4:41 pm HISTORY: ORDERING SYSTEM PROVIDED HISTORY: Reason for Exam: pulmonary nodule TECHNIQUE Multiple-row detector helical CT examination of the thorax with IV contrast. Axial, sagittal, and coronal reconstructed images. This exam was performed according to the departmental dose-optimization program which includes automated exposure control, adjustment of the mA and/or kV according to patient size and/or use of iterative reconstruction technique. COMPARISON 04/30/2014 FINDINGS The heart is normal in size. No coronary artery calcifications identified. No pericardial effusion. The great vessels are normal in caliber. No lymphadenopathy identified. Prominent upper lung emphysema noted. A left upper lobe nodule measures 4 mm on image 17, new since the prior exam. Scarring noted in the inferior lingula. There is multifocal atelectasis or scarring in the lower lungs. A subpleural nodule in the left lower lobe measures 6 mm on image 46. Clustered tree-in-bud opacity seen in the anterior right lower lobe. The lungs are clear. There is no pneumothorax or pleural fluid. No endotracheal or endobronchial lesions seen. No aggressive osseous lesions identified. Degenerative changes seen of the spine. No suspicious findings seen in the visualized abdomen. Thickened appearance of the adrenal glands appears similar to the prior study IMPRESSION Multiple pulmonary nodules. Most significant: 6 mm left solid pulmonary nodule. Per Fleischner Society Guidelines, recommend a non-contrast Chest CT at 3-6 months, then another non-contrast Chest CT at 18-24 months. These guidelines do not apply to immunocompromised patients and patients with cancer. Follow up in patients with significant comorbidities as clinically warranted. For lung cancer screening, adhere to Lung-RADS guidelines. Reference: Radiology. 2017; 284(1):228-43. Emphysema Atherosclerosis with coronary artery calcifications Interpreted by: Reilly Espinoza MD Preliminary Report By: Reilly Espinoza MD Electronically signed By Reilly Espinoza MD Dictated Date: 04/02/2023 11:10:40 AM Prelim Date: 04/02/2023 11:15:57 AM Sign Date: 04/02/2023 11:15:57 AM Ordering Provider: BLADE BOND [facility] ([place]) .GFRon 03-29-2023 GFR 80 ml/min/1.73sqm Normal [facility] ([place]) Comment on above: Result Comment: GFR Population mean for , Non- Americans Ages 20-29 = 116 mL/min/1.73 sq.m. Ages 30-39 = 107 mL/min/1.73 sq.m. Ages 40-49 = 99 mL/min/1.73 sq.m. Ages 50-59 = 93 mL/min/1.73 sq.m. Ages 60-69 = 85 mL/min/1.73 sq.m. Ages 70+ = 75 mL/min/1.73 sq.m. Chronic Kidney Disease: Less than 60 mL/min/1.73 square meters End Stage Renal Disease: Less than 15 mL/min/1.73 square meters Performed By: #### G , CRE #### Clay [address] [address] GFR Non- 66 ml/min/1.73sqm Normal [facility] ([place]) Comment on above: Result Comment: GFR Population mean for , Non- Americans Ages 20-29 = 116 mL/min/1.73 sq.m. Ages 30-39 = 107 mL/min/1.73 sq.m. Ages 40-49 = 99 mL/min/1.73 sq.m. Ages 50-59 = 93 mL/min/1.73 sq.m. Ages 60-69 = 85 mL/min/1.73 sq.m. Ages 70+ = 75 mL/min/1.73 sq.m. Chronic Kidney Disease: Less than 60 mL/min/1.73 square meters End Stage Renal Disease: Less than 15 mL/min/1.73 square meters Performed By: #### G FR, CRE #### Clay [address] [place], [place] [address] CREon 03-29-2023 Creatinine [Mass/Vol] 0.85 mg/dL Normal 0.55-1.02 [facility] ([place]) Comment on above: Performed By: #### Shelby FR, CRE #### [address] [address] MALBRon 03-29-2023 U Creatinine 122.9 mg/dL High 28.0-117.0 [facility] ([place]) Comment on above: Performed By: #### M ALBR ####[address] [place], [place] [address] U Microalb 1332 mcg/dL Normal [facility] ([place]) Comment on above: Performed By: #### M ALBR ####[address] [place], [place] [address] U Ratio Alb/Cre 11 mcg/mg Normal 0-30 [facility] ([place]) Comment on above: Performed By: #### M ALBR ####Cl[address] [place], [place] [address] Basophil percentageOrdered B y: Blade Bond on 03-28-2023 Bilirubin [Mass/Vol] 0.40 mg/dL 0.20-1.00 [facility] Comment on above: For patients on eltr ombopag therapy, use of Dimension [place] TBIL is not recommended. Chloride [Moles/Vol] 105 mmol/L 98-107 [facility] Glucose [Mass/Vol] 89 mg/dL 74-106 [facility] Potassium [Moles/Vol] 3.9 mmol/L 3.5-5.1 [facility] Protein [Mass/Vol] 7.7 g/dL 6.4-8.2 [facility] Sodium [Moles/Vol] 138 mmol/L 136-145 [facility] Laboratory - Chemistry and C hemistry - challengeOrdered By: Blade Bond on 03-28-2023 Albumin/Globulin [Mass ratio] 0.8 {ratio} 0.9-2.4 [facility] ALP [Catalytic activity/Vol] 151 U/L 45-117 [facility] ALT [Catalytic activity/Vol] 12 U/L 13-56 [facility] CO2 [Moles/Vol] 28.0 mmol/L 21.0-32.0 [facility] Globulin (S) [Mass/Vol] 4.3 g/dL 2.2-4.2 [facility] Urea nitrogen/Creatinine [Mass ratio] 27.5 mg/mg 10-20 [facility] No Panel InformationOrdered By: Blade Bond on 03-28-2023 Estimated GFR (MDRD) Amer 102 mL/min >60 [facility] Comment on above: GFR Calc Estimated GFR (MDRD) Non-Af Amer 84 mL/min >60 [facility] Comment on above: Non- GFR Calc Serum or plasma calcium tia urement (mass/volume)Ordered By: Blade Bond on 03-28-2023 Calcium [Mass/Vol] 8.8 mg/dL 8.5-10.1 [facility] Serum or plasma creatinine m easurement (mass/volume)Ordered By: Blade Bond on 03-28-2023 Creatinine [Mass/Vol] 0.73 mg/dL 0.55-1.02 [facility] Comment on above: The validity of the calculated GFR & GFRAA in patients over 70 years has not been determined. Clinical correlation is essential. Serum or plasma urea nitroge n measurement (mass/volume)Ordered By: Blade Bond on 03-28-2023 Urea nitrogen [Mass/Vol] 20 mg/dL 7-18 [facility] Thin prep Papanicolaou smear with manual screeningOrdered By: Blade Bond on 03-28-2023 Thin prep Papanicolaou smear with manual screening 3.4 g/dL 3.2-5.0 [facility] Thin prep Papanicolaou smear with manual screening 14 U/L 15-37 [facility] Thin prep Papanicolaou smear with manual screening 5 5-15 [facility] Final Surgical Pathology Rep kalli 03-27-2023 Final Surgical Pathology Report . Pathology Reports Accession: Collected Date/Time: Received Date/Time: Pathologist: [id number] 03/26/2023 10:00 EST 03/26/2023 13:56 MD MONIK RIZO Final Surgical Pathology Report DIAGNOSIS: A. RIGHT AND LEFT COLON, BIOPSY: - NO SPECIFIC PATHOLOGIC CHANGES - NEGATIVE FOR MICROSCOPIC COLITIS B. DISTAL SIGMOID COLON, BIOPSY: - HYPERPLASTIC POLYP C. RECTUM, BIOPSY: - NO SPECIFIC PATHOLOGIC CHANGES - NEGATIVE FOR COLITIS CLINICAL INFORMATION: PROCEDURE: COLONOSCOPY PREOPERATIVE DIAGNOSIS: DIARRHEA POSTOPERATIVE DIAGNOSIS: DIARRHEA SPECIMEN: A RIGHT AND LEFT COLON BIOPSY B DISTAL SIGMOID POLYP C RECTAL BIOPSIES GROSS DESCRIPTION: All parts labelled with patient name and [id number] A. Received in formalin labeled right and left colon biopsies are multiple dooley-pink tissue fragments measuring 1.8 x 0.3 x 0.2 cm. TS-1 B. Received in formalin labeled distal sigmoid polyp is 1 dooley-pink tissue fragment measuring 0.3 cm. TS-1 C. Received in formalin labeled rectal biopsies are 2 dooley-pink tissue fragments each measuring 0.3 x 0.2 cm. TS-1 Catalina Romero, Grossing [employer] Firefighter/ Dr. Juan Carlos Alba, Pathologist Dictated by Catalina Romero MICROSCOPIC DESCRIPTION: The microscopic examination is performed, except in the case of Gross Only. Electronically Signed by Pathology Report verified by [facility] MONIK CHEATHAM MD Sign out Date: 03/27/2023 09:04 Performing Lab: [facility], [address] [place] [address] Pathology Dept Disclaimer If ancillary studies were utilized, the following Laboratory Developed Test (LDT) disclaimer will apply: Pathology Reports Accession: Collected Date/Time: Received Date/Time: Pathologist: [id number] 03/26/2023 10:00 EST 03/26/2023 13:56 MD MONIK RIZO Disclaimer Under CLIA requirements, [facility]ology Laboratory is qualified to perform high complexity testing. For all ancillary stains, positive and negative controls stain appropriately. Performance characteristics of immunohistochemical and chromogenic in-situ hybridization tests have been determined by [facility]. These tests are used for clinical purposes, They should not be regarded as investigational or for research. Normal [facility] ([place]) UAon 03-27-2023 Color (U) Yellow Normal [facility] ([place]) Comment on above: Performed By: #### U A ####[address] [place], [place] [address] Glucose (U) [Mass/Vol] Negative Normal Negative [facility] ([place]) Comment on above: Performed By: #### U A ####Cl[address] [place] [id number] Ketones Ql (U) Negative Normal Negative [facility] ([place]) Comment on above: Performed By: #### U A ####[address] [place], [place] [address] UA Appear Clear Normal Clear [facility] ([place]) Comment on above: Performed By: #### U A ####[address] [place], [place] [address] UA Blood Trace Abnormal Negative [facility] ([place]) Comment on above: Performed By: #### U A ####Cl[address] [place], [place] [address] UA Leuk Est Negative Normal Negative [facility] ([place]) Comment on above: Performed By: #### U A ####Cl[address] [place], [place] [address] UA Nitrite Negative Normal Negative [facility] ([place]) Comment on above: Performed By: #### U A ####[address] [place], [place] [address] UA pH 6.0 Normal 5.0 - 8.0 [facility] ([place]) Comment on above: Performed By: #### U A ####[address] [place], [place] [address] UA Protein Negative Normal Negative [facility] ([place]) Comment on above: Performed By: #### U A ####[address] [place], [place] [address] UA Spec Grav 1.010 Abnormal 1.015-1.025 [facility] ([place]) Comment on above: Performed By: #### U A ####[address] [place], [place] [address] UA Specimen Type Clean Catch Normal [facility] ([place]) Comment on above: Performed By: #### U A ####[address] [place], [place] [address] UA Urobilinogen 0.2 E.U./dL Normal 0.2-1.0 [facility] ([place]) Comment on above: Performed By: #### U A ####[address] [place], [place] [address] Urobilinogen (U) [Mass/Vol] Negative Normal Negative [facility] ([place]) Comment on above: Performed By: #### U A ####[address] [place], [place] [address] Entry Level Electrical Engineer Cytology Reporton 2023 Entry Level Electrical Engineer Cytology Report . Pathology Reports Accession: Collected Date/Time: Received Date/Time: Pathologist: [id number] 02/20/2023 10:19 EST 02/20/2023 18:00 EST Entry Level Electrical Engineer Cytology Report SPECIMEN: Specimen Description: Liquid Prep w/ HPV Specimen: Cervical/Endocervical Screening or Diagnostic: Screening RELEVANT HISTORY: LMP: MENOPAUSAL SPECIMEN ADEQUACY: SATISFACTORY FOR EVALUATION Endocervical/Transform ational zone component present INTERPRETATION/RESULTS : NEGATIVE FOR INTRAEPITHELIAL LESION OR MALIGNANCY HIGH RISK HPV TESTING: Event Code Result HPV Interp See Interp HPVN HPV Interp Text: High Risk HPV Typing: NEGATIVE HPV types 16, 18, 31, 33, 35, 39, 45, 51, 52, 56, 58, 59, 66 and 68 DNA were undetectable or below the pre-set threshold. The daphne High-Risk HPV DNA Test is not intended for use as a screening device for Pap normal women under age 30 and is not intended to substitute for regular Pap screening. The daphne High-Risk HPV DNA Test is designed to augment existing methods for the detection of cervical disease and should be used in conjunction with clinical information derived from other diagnostic and screening tests, physical examinations and full medical history in accordance with appropriate patient management procedures. NOTE: A negative result does not preclude the presence of HPV infection because results depend on adequate specimen collection, absence of inhibitors and sufficient DNA to be detected. As of: 02/23/23 15:58 EST COMMENT: This Pap Test was successfully processed and evaluated with the assistance of the [employer] Oil[employer] Test Imaging System. Pathology Reports Accession: Collected Date/Time: Received Date/Time: Pathologist: [id number] 02/20/2023 10:19 EST 02/20/2023 18:00 EST Electronically Signed by Pathology report verified by [facility] Screened by: KK Electronically signed by Cathy LOPEZ (ASCP) Sign-Out Date: 02/23/2023 15:58 Performing Lab: [facility], [address] [place] [address] Pathology Dept Disclaimer The Pap test is a screening test for cervical cancer. As evidenced by published data, it is subject to both inherent false negative and false positive results. Your patient's results should be interpreted in context with pertinent clinical history including gynecological examination. Normal [facility] ([place]) HPVon 02-23-2023 HPV Interp Normal See Interp HPVN [facility] ([place]) Comment on above: Order Comment: Order placed by AP_HPV_ORDER rule from [id number] Result Comment: High Risk HPV Typing: NEGATIVE HPV types 16, 18, 31, 33, 35, 39, 45, 51, 52, 56, 58, 59, 66 and 68 DNA were undetectable or below the pre-set threshold. The daphne High-Risk HPV DNA Test is not intended for use as a screening device for Pap normal women under age 30 and is not intended to substitute for regular Pap screening. The daphne High-Risk HPV DNA Test is designed to augment existing methods for the detection of cervical disease and should be used in conjunction with clinical information derived from other diagnostic and screening tests, physical examinations and full medical history in accordance with appropriate patient management procedures. NOTE: A negative result does not preclude the presence of HPV infection because results depend on adequate specimen collection, absence of inhibitors and sufficient DNA to be detected. See Interp HPVN Performed By: #### H PV #### [address] [address] HPV Source Cervix Normal [facility] ([place]) Comment on above: Order Comment: Order placed by AP_HPV_ORDER rule from [id number] Performed By: #### H PV #### [address] [address] LABORATORYOrdered By: Radah Tinoco on 02-20-2023 HPV Interp High Risk HPV Typing : NEGATIVEHPV types 16, 18, 31, 33, 35, 39, 45, 51, 52, 56, 58, 59, 66 and 68 DNA wereundetectable or below the pre-set threshold.The daphne High-Risk HPV DNA Test is not intended for use as a screening device forPap normal women under age 30 and is not intended to substitute for regular Papscreening.The daphne High-Risk HPV DNA Test is designed to augment existing methods for thedetection of cervical disease and should be used in conjunction with clinicalinformation derived from other diagnostic and screening tests, physical examinationsand full medical history in accordance with appropriate patient managementprocedures.N OTE: A negative result does not preclude the presence of HPV infection because resultsdepend on adequate specimen collection, absence of inhibitors and sufficientDNA to be detected. Normal See Interp HPVN Auto Viro/Sero SS Specimen source Nom (Unsp spec) Cervix (02/20/23 10:19 AM) Normal Auto Viro/Sero SS Absolute lymphocyte countOrd ered By: Juan Carlos Rosado on 12-30-2022 Lymphocytes Auto (Unsp spec) [#/Vol] 0.91 10*3/uL 0.83-4.51 [facility] Basophil percentageOrdered B y: Juan Carlos Alonzo on 12-30-2022 Basophils/100 WBC (Bld) 0.2 % 0-1 [facility] Chloride [Moles/Vol] 107 mmol/L 98-107 [facility] Eosinophils/100 WBC (Bld) 2.3 % 0-5 [facility] Glucose [Mass/Vol] 110 mg/dL 74-106 [facility] Comment on above: Fasting Glucose resu lt from 100 to 125 mg/dL suggests IMPAIRED HOMEOSTASIS per A.D.A. criteria. Neutrophils (Bld) [#/Vol] 3.0 10*3/uL 2.0-7.7 [facility] Neutrophils/100 WBC (Bld) 67.6 % 47-70 [facility] Potassium [Moles/Vol] 3.4 mmol/L 3.5-5.1 [facility] Sodium [Moles/Vol] 138 mmol/L 136-145 [facility] WBC (Bld) [#/Vol] 4.4 10*3/uL 4.4-11.0 [facility] Blood erythrocytes count (nu mber/volume)Ordered By: Juan Carlos Rosado on 12-30-2022 RBC (Bld) [#/Vol] 4.58 10*6/uL 4.2-5.4 [facility] Blood hemoglobin measurement (mass/volume)Ordered By: Juan Carlos Rosado on 12-30-2022 Hemoglobin (Bld) [Mass/Vol] 12.4 g/dL 12.0-15.0 [facility] Blood lymphocytes/100 leukoc ytesOrdered By: Juan Carlos Rosado on 12-30-2022 Lymphocytes/100 WBC (Bld) 20.8 % 19-41 [facility] Blood monocytes/100 leukocyt esOrdered By: Juan Carlos Rosado on 12-30-2022 Monocytes/100 WBC (Bld) 8.9 % 0-10 [facility] Blood platelet mean volumeOr dered By: Juan Carlos Rosado on 12-30-2022 Platelet mean volume (Bld) [Entitic vol] 10.0 fL 6.2-12.0 [facility] Determination of erythrocyte mean corpuscular volume (MCV)Ordered By: Juan Carlos Rosado on 12-30-2022 MCV (RBC) [Entitic vol] 85.6 fL 81-99 [facility] Hematocrit Auto (Bld) [Volum e fraction]Ordered By: Juan Carlos Rosado on 12-30-2022 Hematocrit (Bld) [Volume fraction] 39.2 % 37-47 [facility] Laboratory - Chemistry and C hemistry - challengeOrdered By: Juan Carlos Rosado on 12-30-2022 CO2 [Moles/Vol] 26.0 mmol/L 21.0-32.0 [facility] Urea nitrogen/Creatinine [Mass ratio] 30.7 mg/mg 10-20 [facility] Laboratory - Hematology and Cell countsOrdered By: Juan Carlos Rosado on 12-30-2022 Erythrocyte distribution width (RBC) [Entitic vol] 46.6 fL 35.1-43.9 [facility] Erythrocyte distribution width (RBC) [Ratio] 14.9 % 11.6-14.6 [facility] Immature granulocytes/100 WBC (Bld) 0.200 % 0.0-0.9 [facility] Comment on above: IG% - Immature Granu locytes (promyelocytes, myelocytes and metamyelocytes) > 1% indicates that a LEFT SHIFT is Present. MCH (RBC) [Entitic mass] 27.1 pg 27.0-32.0 [facility] Nucleated RBC/100 WBC (Bld) [Ratio] 0 % 0-5 [facility] MCHC Auto (RBC) [Mass/Vol]Or dered By: Juan Carlos Rosado on 12-30-2022 MCHC (RBC) [Mass/Vol] 31.6 g/dL 32-36 [facility] No Panel InformationOrdered By: Juan Carlos Rosado on 12-30-2022 Estimated Creatinine Clearance Calc 48.45 ml/min [facility] Estimated GFR (MDRD) Amer 110 mL/min >60 [facility] Comment on above: GFR Calc Estimated GFR (MDRD) Non-Af Amer 91 mL/min >60 [facility] Comment on above: Non- GFR Calc Troponin I High Sensitivity 6 pg/mL 3.0-54.0 [facility] Comment on above: Please Note: New Irais t Units and Gender Specific Reference Ranges. For more information see Policy Stat Procedure [place] High Sensitivity Troponin (TNIH) and attachments. Platelets bldOrdered By: Rene Rosado on 12-30-2022 Platelets (Bld) [#/Vol] 223 10*3/uL 150-450 [facility] Serum or plasma calcium tia urement (mass/volume)Ordered By: Juan Carlos Rosado on 12-30-2022 Calcium [Mass/Vol] 8.5 mg/dL 8.5-10.1 [facility] Serum or plasma creatinine m easurement (mass/volume)Ordered By: Juan Carlos Rosado on 12-30-2022 Creatinine [Mass/Vol] 0.68 mg/dL 0.55-1.02 [facility] Comment on above: The validity of the calculated GFR & GFRAA in patients over 70 years has not been determined. Clinical correlation is essential. Serum or plasma urea nitroge n measurement (mass/volume)Ordered By: Juan Carlos Rosado on 12-30-2022 Urea nitrogen [Mass/Vol] 21 mg/dL 08-22 [facility] Thin prep Papanicolaou smear with manual screeningOrdered By: Juan Carlos Rosado on 12-30-2022 Thin prep Papanicolaou smear with manual screening 06-19 [facility] LABORATORYOrdered By: SYSTEM SYSTEM on 06-15-2022 25-hydroxyvitamin D3 [Mass/Vol] 33.7 ng/mL Invalid Interpretation Code AO ADM SS Albumin BCP dye [Mass/Vol] 3.7 G/dL Invalid Interpretation Code 3.4 - 4.8 G/dL AO ADM SS Albumin/Globulin [Mass ratio] 1.0 {ratio} Invalid Interpretation Code 1.1 - 2.5 ratio AO ADM SS ALP [Catalytic activity/Vol] 144 U/L Invalid Interpretation Code 40 - 135 U/L AO ADM SS ALT With P-5'-P [Catalytic activity/Vol] 12 U/L Invalid Interpretation Code 14 - 59 U/L AO ADM SS AST With P-5'-P [Catalytic activity/Vol] 15 U/L Invalid Interpretation Code 10 - 40 U/L AO ADM SS Bilirubin [Mass/Vol] 0.3 mg/dL Invalid Interpretation Code 0.2 - 1.0 mg/dL AO ADM SS Calcium [Mass/Vol] 8.6 mg/dL Invalid Interpretation Code 8.4 - 10.2 mg/dL AO ADM SS Chloride [Moles/Vol] 104 mmol/L Invalid Interpretation Code 98 - 107 mmol/L AO ADM SS CO2 [Moles/Vol] 28 mmol/L Invalid Interpretation Code 23 - 31 mmol/L AO ADM SS Creatinine [Mass/Vol] 0.76 mg/dL Invalid Interpretation Code 0.55 - 1.02 mg/dL AO ADM SS Electrolyte Balance 9.0 mEq/L Invalid Interpretation Code 4.0 - 15.0 mEq/L AO ADM SS Free T3 [Mass/Vol] 2.03 pg/mL Invalid Interpretation Code 2.30 - 4.00 pg/mL AO ADM SS Free T4 [Mass/Vol] 1.12 ng/dL Invalid Interpretation Code 0.76 - 1.46 ng/dL AO ADM SS GFR/1.73 sq M.predicted among blacks MDRD (S/P/Bld) [Vol rate/Area] 92 ml/min/1.73sqm Invalid Interpretation Code AO Chemistry S GFR/1.73 sq M.predicted among non-blacks MDRD (S/P/Bld) [Vol rate/Area] 76 ml/min/1.73sqm Invalid Interpretation Code AO Chemistry S Globulin 3.8 G/dL Invalid Interpretation Code AO ADM SS Glucose [Mass/Vol] 90 mg/dL Invalid Interpretation Code 80 - 115 mg/dL AO ADM SS HbA1c (Bld) [Mass fraction] 5.7 % Invalid Interpretation Code 4.3 - 6.4 % AO ADM SS Potassium [Moles/Vol] 4.1 mmol/L Invalid Interpretation Code 3.5 - 5.1 mmol/L AO ADM SS Protein [Mass/Vol] 7.5 G/dL Invalid Interpretation Code 6.4 - 8.2 G/dL AO ADM SS Sodium [Moles/Vol] 141 mmol/L Invalid Interpretation Code 136 - 145 mmol/L AO ADM SS Thyroglobulin Ab IA Qn unit/mL Invalid Interpretation Code 15 - 60 unit/mL AH ADM SS TPO Ab IA Qn unit/mL Invalid Interpretation Code 0 - 60 unit/mL AH ADM SS TSH Qn 2.58 m[IU]/L Invalid Interpretation Code 0.36 - 3.74 mcIU/mL AO ADM SS Urea nitrogen [Mass/Vol] 23 mg/dL Invalid Interpretation Code 7 - 18 mg/dL AO ADM SS Urea nitrogen/Creatinine [Mass ratio] 30 ratio Invalid Interpretation Code 7 - 27 ratio AO ADM SS LABORATORYOrdered By: Ajit Eller on 06-15-2022 Basophil, Absolute 0.0 103/mcL Invalid Interpretation Code 0.0 - 0.2 10^3/mcL AO Workflow SS Basophils/100 WBC (Bld) 0.5 % Invalid Interpretation Code 0.0 - 2.5 % AO Workflow SS Eosinophil, Absolute 0.1 103/mcL Invalid Interpretation Code 0.0 - 0.4 10^3/mcL AO Workflow SS Eosinophils/100 WBC (Bld) 1.5 % Invalid Interpretation Code 0.0 - 7.0 % AO Workflow SS Erythrocyte distribution width (RBC) [Ratio] 15.3 % Invalid Interpretation Code 11.5 - 14.5 % AO Workflow SS Hematocrit (Bld) [Volume fraction] 36.7 % Invalid Interpretation Code 37.0 - 47.0 % AO Workflow SS Hemoglobin (Bld) [Mass/Vol] 12.0 G/dL Invalid Interpretation Code 12.0 - 16.0 G/dL AO Workflow SS Lymphocyte, Absolute 1.1 103/mcL Invalid Interpretation Code 0.8 - 3.9 10^3/mcL AO Workflow SS Lymphocytes/100 WBC (Bld) 13.7 % Invalid Interpretation Code 10.0 - 50.0 % AO Workflow SS MCH (RBC) [Entitic mass] 27.6 pg Invalid Interpretation Code 27.0 - 31.2 pg AO Workflow SS MCHC 32.7 G/dL Invalid Interpretation Code 33.0 - 37.0 G/dL AO Workflow SS MCV (RBC) [Entitic vol] 84.6 fL Invalid Interpretation Code 80.0 - 94.0 fL AO Workflow SS Monocyte, Absolute 0.3 103/mcL Invalid Interpretation Code 0.2 - 1.0 10^3/mcL AO Workflow SS Monocytes/100 WBC (Bld) 4.0 % Invalid Interpretation Code 1.7 - 13.0 % AO Workflow SS Neutrophil, Absolute 6.6 103/mcL Invalid Interpretation Code 2.9 - 6.2 10^3/mcL AO Workflow SS Neutrophils/100 WBC (Bld) 80.3 % Invalid Interpretation Code 37.0 - 80.0 % AO Workflow SS Platelet mean volume (Bld) [Entitic vol] 8.2 fL Invalid Interpretation Code 7.4 - 10.4 fL AO Workflow SS Platelets (Bld) [#/Vol] 299 103/mcL Invalid Interpretation Code 130 - 400 10^3/mcL AO Workflow SS RBC (Bld) [#/Vol] 4.34 106/mcL Invalid Interpretation Code 4.20 - 5.40 10^6/mcL AO Workflow SS WBC (Bld) [#/Vol] 8.3 103/mcL Invalid Interpretation Code 4.6 - 10.8 10^3/mcL AO Workflow SS LABORATORYOrdered By: Blanca Hernandez on 06-15-2022 Cholesterol [Mass/Vol] 192 mg/dL Invalid Interpretation Code 0 - 200 mg/dL AO ADM SS Cholesterol in HDL [Mass/Vol] 71 mg/dL Invalid Interpretation Code 40 - 60 mg/dL AO ADM SS Cholesterol in LDL [Mass/Vol] 98 mg/dL Invalid Interpretation Code 0 - 130 mg/dL AO ADM SS Triglyceride [Mass/Vol] 116 mg/dL Invalid Interpretation Code 0 - 150 mg/dL AO ADM SS AZITHROMYCIN:SUSC:PT:ISOLATE :ORDQN:MICon 05-05-2022 Azithromycin ALIX [Susc] Light Group A Be ta Hemolytic Strep (Strep pyogenes) Few Staphylococcus aureus ALIX to follow No anaerobes isolated to date. [facility] Work Phone: Azithromycin ALIX [Susc]on Group A Beta Hemolytic Strep (Strep pyogenes) Group A Beta Hemolytic Strep (Strep pyogenes) [facility] Work Phone: GS 2+ Gram Positive [facility] Work Phone: Staphylococcus aureus Staphylococcus aureus [facility] Work Phone: LABORATORYOrdered By: SYSTEM SYSTEM on 05-01-2022 Free T4 [Mass/Vol] 1.55 ng/dL Invalid Interpretation Code 0.76 - 1.46 ng/dL AO ADM SS TSH Qn 3.79 m[IU]/L Invalid Interpretation Code 0.36 - 3.74 mcIU/mL AO ADM SS No Panel Informationon 05-01 Culture Urine 10,000 - 50,000 cfu/ ml Multiple bacterial morphotypes present. Probable Contamination. Suggest recollection if clinically indicated. [facility] Work Phone: LABORATORYOrdered By: Dejah Varela on 05-23-2021 Albumin BCP dye [Mass/Vol] 3.7 G/dL Invalid Interpretation Code 3.4 - 4.8 G/dL AO ADM SS Albumin/Globulin [Mass ratio] 1.0 {ratio} Invalid Interpretation Code 1.1 - 2.5 ratio AO ADM SS ALP [Catalytic activity/Vol] 151 U/L Invalid Interpretation Code 40 - 135 U/L AO ADM SS ALT With P-5'-P [Catalytic activity/Vol] 14 U/L Invalid Interpretation Code 14 - 59 U/L AO ADM SS AST With P-5'-P [Catalytic activity/Vol] 11 U/L Invalid Interpretation Code 10 - 40 U/L AO ADM SS Bilirubin [Mass/Vol] 0.3 mg/dL Invalid Interpretation Code 0.2 - 1.0 mg/dL AO ADM SS Calcium [Mass/Vol] 8.8 mg/dL Invalid Interpretation Code 8.4 - 10.2 mg/dL AO ADM SS Chloride [Moles/Vol] 102 mmol/L Invalid Interpretation Code 98 - 107 mmol/L AO ADM SS Cholesterol [Mass/Vol] 186 mg/dL Invalid Interpretation Code 0 - 200 mg/dL AO ADM SS Cholesterol in HDL [Mass/Vol] 77 mg/dL Invalid Interpretation Code 40 - 60 mg/dL AO ADM SS Cholesterol in LDL [Mass/Vol] 74 mg/dL Invalid Interpretation Code 0 - 130 mg/dL AO ADM SS CO2 [Moles/Vol] 30 mmol/L Invalid Interpretation Code 23 - 31 mmol/L AO ADM SS Creatinine [Mass/Vol] 1.11 mg/dL Invalid Interpretation Code 0.55 - 1.02 mg/dL AO ADM SS Electrolyte Balance 9.0 mEq/L Invalid Interpretation Code 4.0 - 15.0 mEq/L AO ADM SS Globulin 3.6 G/dL Invalid Interpretation Code AO ADM SS Glucose [Mass/Vol] 114 mg/dL Invalid Interpretation Code 80 - 115 mg/dL AO ADM SS Potassium [Moles/Vol] 4.5 mmol/L Invalid Interpretation Code 3.5 - 5.1 mmol/L AO ADM SS Protein [Mass/Vol] 7.3 G/dL Invalid Interpretation Code 6.4 - 8.2 G/dL AO ADM SS Sodium [Moles/Vol] 141 mmol/L Invalid Interpretation Code 136 - 145 mmol/L AO ADM SS Triglyceride [Mass/Vol] 177 mg/dL Invalid Interpretation Code 0 - 150 mg/dL AO ADM SS TSH Qn 4.56 m[IU]/L Invalid Interpretation Code 0.36 - 3.74 mcIU/mL AO ADM SS Urea nitrogen [Mass/Vol] 19 mg/dL Invalid Interpretation Code 7 - 18 mg/dL AO ADM SS Urea nitrogen/Creatinine [Mass ratio] 17 ratio Invalid Interpretation Code 7 - 27 ratio AO ADM SS LABORATORYOrdered By: Ajit Eller on 05-23-2021 Basophil, Absolute 0.00 103/mcL Invalid Interpretation Code 0.00 - 0.19 10^3/mcL AO Auto Heme SS Basophils/100 WBC (Bld) 0.3 % Invalid Interpretation Code 0.0 - 2.5 % AO Auto Heme SS Eosinophil, Absolute 0.10 103/mcL Invalid Interpretation Code 0.00 - 0.40 10^3/mcL AO Auto Heme SS Eosinophils/100 WBC (Bld) 2.1 % Invalid Interpretation Code 0.0 - 7.0 % AO Auto Heme SS Erythrocyte distribution width (RBC) [Ratio] 13.5 % Invalid Interpretation Code 11.5 - 14.5 % AO Auto Heme SS Hematocrit (Bld) [Volume fraction] 39.2 % Invalid Interpretation Code 37.0 - 47.0 % AO Auto Heme SS Hemoglobin (Bld) [Mass/Vol] 13.1 G/dL Invalid Interpretation Code 12.0 - 16.0 G/dL AO Auto Heme SS Lymphocyte, Absolute 1.10 103/mcL Invalid Interpretation Code 0.77 - 3.85 10^3/mcL AO Auto Heme SS Lymphocytes/100 WBC (Bld) 17.2 % Invalid Interpretation Code 10.0 - 50.0 % AO Auto Heme SS MCH (RBC) [Entitic mass] 28.3 pg Invalid Interpretation Code 27.0 - 31.2 pg AO Auto Heme SS MCHC (RBC) [Mass/Vol] 33.4 G/dL Invalid Interpretation Code 33.0 - 37.0 G/dL AO Auto Heme SS MCV (RBC) [Entitic vol] 84.9 fL Invalid Interpretation Code 80.0 - 94.0 fL AO Auto Heme SS Monocyte, Absolute 0.40 103/mcL Invalid Interpretation Code 0.15 - 1.00 10^3/mcL AO Auto Heme SS Monocytes/100 WBC (Bld) 6.4 % Invalid Interpretation Code 1.7 - 13.0 % AO Auto Heme SS Neutrophil, Absolute 4.60 103/mcL Invalid Interpretation Code 2.85 - 6.16 10^3/mcL AO Auto Heme SS Neutrophils/100 WBC (Bld) 74.0 % Invalid Interpretation Code 37.0 - 80.0 % AO Auto Heme SS Platelet mean volume (Bld) [Entitic vol] 8.3 fL Invalid Interpretation Code 7.4 - 10.4 fL AO Auto Heme SS Platelets (Bld) [#/Vol] 400 103/mcL Invalid Interpretation Code 130 - 400 10^3/mcL AO Auto Heme SS RBC (Bld) [#/Vol] 4.61 106/mcL Invalid Interpretation Code 4.20 - 5.40 10^6/mcL AO Auto Heme SS WBC (Bld) [#/Vol] 6.20 103/mcL Invalid Interpretation Code 4.60 - 10.80 10^3/mcL AO Auto Heme SS LABORATORYOrdered By: SYSTEM SYSTEM on 05-23-2021 GFR 59 ml/min/1.73sqm Invalid Interpretation Code AO Chemistry S GFR Non- 49 ml/min/1.73sqm Inval id Interpretation Code AO Chemistry S LABORATORYOrdered By: Blanca Hernandez on 01-13-2021 ADMITTED TO INTENSIVE CARE UNIT FOR CONDITION OF INTEREST:FIND:PT:^PATIEN T:ORD: No (01/13/21 1:54 PM) Invalid Interpretation Code AO Auto Urine SS EMPLOYED IN A HEALTHCARE SETTING:FIND:PT:^PATIENT :ORD: No (01/13/21 1:54 PM) Invalid Interpretation Code AO Auto Urine SS FIRST TEST FOR CONDITION OF INTEREST:FIND:PT:^PATIEN T:ORD: No (01/13/21 1:54 PM) Invalid Interpretation Code AO Auto Urine SS HAS SYMPTOMS RELATED TO CONDITION OF INTEREST:FIND:PT:^PATIEN T:ORD: Yes (01/13/21 1:54 PM) Invalid Interpretation Code AO Auto Urine SS Illness or injury onset date and time [id number] Invalid Interpretation Code AO Auto Urine SS Patient was hospitalized because of this condition No (01/13/21 1:54 PM) Invalid Interpretation Code AO Auto Urine SS status Not (01/13/21 1:54 PM) Invalid Interpretation Code AO Auto Urine SS RESIDES IN A CONGREGATE CARE SETTING:FIND:PT:^PATIENT :ORD: No (01/13/21 1:54 PM) Invalid Interpretation Code AO Auto Urine SS SARS-CoV-2 (COVID-19) RNA LORI+probe Ql (Resp) Negative (01/13/21 1:54 PM) Invalid Interpretation Code Negative AO Auto Urine SS SARS-CoV-2 (COVID-19) RNA LORI+probe Ql (Unsp spec) Negative results do not preclude SARS-CoV-2 infection and should not be used as the sole basis for patient management decisions. Negative results must be combined with clinical observations, patient history, and epidemiological information.There is a risk of false negative values resulting from improperly collected, transported, or handled specimens.There is a risk of false negative values due to the presence of sequence variants in the pathogen targets of the assay, procedural errors, amplification inhibitors in specimens, or inadequate numbers of organisms for amplification.VICENTE SARS-CoV-2 Assay is a Real-Time reverse-transcriptase polymerase chain reaction (RT-PCR) based qualitative in vitro diagnostic test intended for the qualitative detection of nucleic acid from the SARS-CoV-2 in nasopharyngeal swab specimens collected from individuals suspected of COVID-19 by their healthcare provider. Testing is limited to laboratories certified under the Clinical Laboratory Improvement Amendments of 1988 (CLIA), 42 U.S.C. 263a, to perform moderate and high complexity tests. Invalid Interpretation Code AO Auto Urine SS Vital Signs Date Time Vital Sign Value Performing Clinician Facility 10-04-2023 13:39-0400 Body temperature 97.88 [degF] BLADE BOND DO [facility] 10-04-2023 13:39-0400 Diastolic Blood Pressure Non-Invasive 86 mm[Hg] BLADE BOND DO [facility] 10-04-2023 13:39-0400 Heart rate 90 /min BLADE BOND DO [facility] 10-04-2023 13:39-0400 Reason For Taking VItal Signs BLADE BOND DO [facility] 10-04-2023 13:39-0400 Respiratory rate 18 /min BLADE BOND DO [facility] 10-04-2023 13:39-0400 Systolic Blood Pressure Non-Invasive 124 mm[Hg] BLADE BOND DO [facility] 06-18-2023 20:32-0400 Body temperature 97.4 [degF] Dr. Blade Bond Work Phone: [facility] 06-18-2023 20:32-0400 Diastolic blood pressure 76 mm[Hg] Dr. Blade Bond Work Phone: [facility] 06-18-2023 20:32-0400 Heart rate 76 /min Dr. Blade Bond Work Phone: [facility] 06-18-2023 20:32-0400 Respiratory rate 20 /min Dr. Blade Bond Work Phone: [facility] 06-18-2023 20:32-0400 SaO2% (BldA) [Mass fraction] 95 % Dr. Blade Bond Work Phone: [facility] 06-18-2023 20:32-0400 Systolic blood pressure 107 mm[Hg] Dr. Blade Bond Work Phone: [facility] 06-18-2023 18:48-0400 Inhaled oxygen flow rate 2 L/min Dr. Blade Bond Work Phone: [facility] 06-18-2023 18:31-0400 Body mass index (BMI) [Ratio] 36.1 kg/m2 Dr. Blade Bond Work Phone: [facility] 06-18-2023 18:31-0400 Body weight 99.[address] Blade Bond Work Phone: [facility] 06-18-2023 17:06-0400 Body height 166.[address] Blade Bond Work Phone: [facility] 05-29-2023 08:56-0400 Body mass index (BMI) [Ratio] 36.5 kg/m2 Dr. Blade Bond Work Phone: [facility] 05-29-2023 08:56-0400 Body temperature 98.6 [degF] Dr. Blade Bond Work Phone: [facility] 05-29-2023 08:56-0400 Body weight 101.[address] Blade Bond Work Phone: [facility] 05-29-2023 08:56-0400 Diastolic blood pressure 79 mm[Hg] Dr. Blade Bond Work Phone: [facility] 05-29-2023 08:56-0400 Heart rate 97 /min Dr. Blade Bond Work Phone: [facility] 05-29-2023 08:56-0400 Inhaled oxygen flow rate 2 L/min Dr. Blade Bond Work Phone: [facility] 05-29-2023 08:56-0400 SaO2% (BldA) [Mass fraction] 97 % Dr. Blade Bond Work Phone: [facility] 05-29-2023 08:56-0400 Systolic blood pressure 123 mm[Hg] Dr. Blade Bond Work Phone: [facility] 03-26-2023 10:18-0500 Diastolic Blood Pressure Non-Invasive 64 mm[Hg] DR PATRICIA STEVENS MD [facility] 03-26-2023 10:18-0500 Heart rate 87 /min DR PATRICIA STEVENS MD [facility] 03-26-2023 10:18-0500 Respiratory rate 23 /min DR PATRICIA STEVENS MD [facility] 03-26-2023 10:18-0500 Systolic Blood Pressure Non-Invasive 122 mm[Hg] DR PATRICIA STEVENS MD [facility] 03-26-2023 10:16-0500 Diastolic Blood Pressure Non-Invasive 70 mm[Hg] DR PATRICIA STEVENS MD [facility] 03-26-2023 10:16-0500 Heart rate 80 /min DR PATRICIA STEVENS MD [facility] 03-26-2023 10:16-0500 Respiratory rate 21 /min DR PATRICIA STEVENS MD [facility] 03-26-2023 10:16-0500 Systolic Blood Pressure Non-Invasive 117 mm[Hg] DR PATRICIA STEVENS MD [facility] 03-26-2023 10:11-0500 Diastolic Blood Pressure Non-Invasive 76 mm[Hg] DR PATRICIA STEVENS MD [facility] 03-26-2023 10:11-0500 Heart rate 81 /min DR PATRICIA STEVENS MD [facility] 03-26-2023 10:11-0500 Respiratory rate 23 /min DR PATRICIA STEVENS MD [facility] 03-26-2023 10:11-0500 Systolic Blood Pressure Non-Invasive 107 mm[Hg] DR PATRICIA STEVENS MD [facility] 03-26-2023 10:08-0500 Body temperature 98.06 [degF] DR PATRICIA STEVENS MD [facility] 03-26-2023 10:05-0500 Respiratory Rate - Anes 33 br/min DR PATRICIA STEVENS MD [facility] 03-26-2023 10:00-0500 Respiratory Rate - Anes 40 br/min DR PATRICIA STEVENS MD [facility] 03-26-2023 09:55-0500 Respiratory Rate - Anes 9 br/min DR PATRICIA STEVENS MD [facility] 03-26-2023 09:48-0500 Body height 165.[address] PATRICIA STEVENS MD [facility] 03-26-2023 09:48-0500 Body temperature 98.06 [degF] DR PATRICIA STEVENS MD [facility] 03-26-2023 09:48-0500 Body weight 99.[address] PATRICIA STEVENS MD [facility] 03-26-2023 09:48-0500 Heart rate 71 /min DR PATRICIA STEVENS MD [facility] 12-30-2022 15:42-0500 Body temperature 97.8 [degF] Dr. Blade Bond Work Phone: [facility] 12-30-2022 15:42-0500 Diastolic blood pressure 65 mm[Hg] Dr. Blade Bond Work Phone: [facility] 12-30-2022 15:42-0500 Heart rate 60 /min Dr. Blade Bond Work Phone: [facility] 12-30-2022 15:42-0500 Respiratory rate 12 /min Dr. Blade Bond Work Phone: [facility] 12-30-2022 15:42-0500 SaO2% (BldA) [Mass fraction] 100 % Dr. Blade Bond Work Phone: [facility] 12-30-2022 15:42-0500 Systolic blood pressure 127 mm[Hg] Dr. Blade Bond Work Phone: [facility] 12-30-2022 15:00-0500 Inhaled oxygen flow rate 2 L/min Dr. Blade Bond Work Phone: [facility] 12-30-2022 12:49-0500 Body mass index (BMI) [Ratio] 36.9 kg/m2 Dr. Blade Bond Work Phone: [facility] 12-30-2022 12:49-0500 Body weight 102.[address] Blade Bond Work Phone: [facility] 12-30-2022 12:35-0500 Body height 166.[address] Blade Bond Work Phone: [facility] 11-23-2022 06:09-0400 Body mass index (BMI) [Ratio] 42.4 kg/m2 Dr. Blade Bond Work Phone: [facility] 11-23-2022 06:09-0400 Body temperature 95.7 [degF] Dr. Blade Bond Work Phone: [facility] 11-23-2022 06:09-0400 Body weight 119.[address] Blade Bond Work Phone: [facility] 11-23-2022 06:09-0400 Diastolic blood pressure 84 mm[Hg] Dr. Blade Bond Work Phone: [facility] 11-23-2022 06:09-0400 Heart rate 87 /min Dr. Blade Bond Work Phone: [facility] 11-23-2022 06:09-0400 Inhaled oxygen flow rate 1 L/min Dr. Blade Bond Work Phone: [facility] 11-23-2022 06:09-0400 Respiratory rate 22 /min Dr. Blade Bond Work Phone: [facility] 11-23-2022 06:09-0400 SaO2% (BldA) [Mass fraction] 96 % Dr. Blade Bond Work Phone: [facility] 11-23-2022 06:09-0400 Systolic blood pressure 125 mm[Hg] Dr. Blade Bond Work Phone: [facility] 05-26-2022 09:34-0400 Body height 167.[address] Blade Bond Work Phone: [facility] 05-26-2022 09:34-0400 Body mass index (BMI) [Ratio] 37.8 kg/m2 Dr. Blade Bond Work Phone: [facility] 05-26-2022 09:34-0400 Body temperature 97 [degF] Dr. Blade Bond Work Phone: [facility] 05-26-2022 09:34-0400 Body weight 106.[address] Blade Bond Work Phone: [facility] 05-26-2022 09:34-0400 Diastolic blood pressure 80 mm[Hg] Dr. Blade Bond Work Phone: [facility] 05-26-2022 09:34-0400 Heart rate 89 /min Dr. Blade Bond Work Phone: [facility] 05-26-2022 09:34-0400 Inhaled oxygen flow rate 2 L/min Dr. Blade Bond Work Phone: [facility] 05-26-2022 09:34-0400 Respiratory rate 20 /min Dr. Blade Bond Work Phone: [facility] 05-26-2022 09:34-0400 SaO2% (BldA) [Mass fraction] 94 % Dr. Blade Bond Work Phone: [facility] 05-26-2022 09:34-0400 Systolic blood pressure 142 mm[Hg] Dr. Blade Bond Work Phone: [facility] 06-07-2021 11:15-0400 Body height 167.[address] Ayla Mane Work Phone: [facility] Work Phone: 06-07-2021 11:15-0400 Body weight 108.[address] Ayla Mane Work Phone: [facility] Work Phone: 06-07-2021 11:15-0400 Heart rate 72 /min Dr. Ayla Mane Work Phone: [facility] Work Phone: 06-07-2021 11:15-0400 SaO2% (BldA) [Mass fraction] 95 % Dr. Ayla Mane Work Phone: [facility] Work Phone: 03-17-2021 11:45-0500 Body mass index (BMI) [Ratio] 38.9 kg/m2 Dr. Ayla Mane Work Phone: [facility] Work Phone: 03-17-2021 11:45-0500 Body temperature 98.4 [degF] Dr. Ayla Mane Work Phone: [facility] Work Phone: 03-17-2021 11:45-0500 Body weight 109.[address] Ayla Mane Work Phone: [facility] Work Phone: 03-17-2021 11:45-0500 Diastolic blood pressure 76 mm[Hg] Dr. Ayla Mane Work Phone: [facility] Work Phone: 03-17-2021 11:45-0500 Heart rate 72 /min Dr. Ayla Mane Work Phone: [facility] Work Phone: 03-17-2021 11:45-0500 Respiratory rate 18 /min Dr. Ayla Mane Work Phone: [facility] Work Phone: 03-17-2021 11:45-0500 SaO2% (BldA) [Mass fraction] 96 % Dr. Ayla Mane Work Phone: [facility] Work Phone: 03-17-2021 11:45-0500 Systolic blood pressure 129 mm[Hg] Dr. Ayla Mane Work Phone: [facility] Work Phone: Encounters Encounter Date Encounter Type Care Provider Facility Start: 09-22-2024 ambulatory Misael Yates Facility: [facility] Start: 07-10-2024 ambulatory Glendy Ugarte NP Fac ility:[facility] Start: 07-04-2024 End: 07-08-2024 ambulatory BLADE BOND DO Facility:[facility] Start: 05-01-2024 End: 05-01-2024 ambulatory Glendy Ugarte NP Facility:[facility] Start: 04-25-2024 End: 04-25-[address] Blade Bond DO Work Phone: [facility] Work Phone: Start: 04-25-2024 End: 04-25-2024 Patient encounter procedure Glendy Ugarte DIELECTRIC PRESS OPERATOR-C -Cat Scan, [facility] Work Phone: Start: 04-25-2024 End: 04-25-2024 ambulatory Glendy Ugarte NP Facility:[facility] Start: 04-02-2024 End: 04-06-2024 ambulatory BLADE BOND DO Facility:[facility] Start: 04-02-2024 End: 04-06-2024 Outreach Lab LBADE BOND DO [facility] Start: 03-07-2024 End: 03-07-2024 ambulatory BLADE BOND DO Facility:[facility] [place] Start: 03-07-2024 End: 03-07-2024 Patient encounter procedure BLADE BOND DO [facility] Start: 11-29-2023 End: 11-29-2023 ambulatory Blade Bond Facility:[facility] Start: 11-16-2023 End: 11-20-2023 ambulatory BLADE BOND DO Facility:[facility] Start: 11-16-2023 End: 11-20-2023 Encounter for general adult medical examination without abnormal findings BLADE BOND DO Facility:[facility] Start: 11-16-2023 End: 11-20-2023 Outreach Lab BLADE BOND DO [facility] Start: 10-04-2023 End: 10-04-2023 ambulatory BLADE BOND DO Facility:[facility] Start: 10-04-2023 End: 10-04-2023 SAME DAY STAY BLADE BOND DO [facility] Start: 08-27-2023 End: 08-27-2023 ambulatory BLADE BOND DO Facility:[facility] Start: 08-27-2023 End: 08-27-2023 Patient encounter procedure BLADE BOND DO [facility] Start: 06-18-2023 End: 06-18-2023 Emergency department [facility] Start: 05-29-2023 End: 05-29-[address] Blade Bond Work Phone: [facility] Work Phone: Start: 03-29-2023 End: 04-02-2023 ambulatory ESHA HAIDER MD Facility:[facility] Start: 03-28-2023 End: 03-28-[address] [facility] Start: 03-27-2023 End: 03-31-2023 ambulatory ESHA HAIDER MD Facility:[facility] Start: 03-26-2023 End: 03-26-[address] PATRICIA STEVENS MD Facility:[facility] Start: 03-26-2023 End: 03-26-[address] PATRICIA STEVENS MD [facility] Start: 02-20-2023 End: 02-24-2023 ambulatory ESHA HAIDER MD Facility:[facility] Start: 02-20-2023 End: 02-24-2023 Outreach Lab ESHA HAIDER MD [facility] Start: 12-30-2022 End: 12-30-2022 Emergency department patient [facility] Blade Bond [facility] Start: 12-30-2022 End: 12-30-[address] Blade Bond Work Phone: [facility] Work Phone: Start: 12-30-2022 End: 12-30-[address] Blade Bond Work Phone: [facility] Work Phone: Start: 12-07-2022 ambulatory BLADE BOND DO Faci lity:[facility] Start: 11-23-2022 End: 11-23-[address] Blade Bond Work Phone: [facility]-Pulmonary Medicine [facility] Work Phone: Start: 06-15-2022 End: 06-15-2022 Patient encounter procedure BLADE BOND DO [facility] Start: 06-06-2022 End: 06-06-[address] Blade Bond Work Phone: [facility] Work Phone: Start: 06-06-2022 End: 06-06-[address] Blade Bond Work Phone: [facility] Start: 05-26-2022 End: 05-26-[address] Blade Bond Work Phone: [facility]-P[facility] Medicine [facility] Start: 05-05-2022 End: 05-09-2022 Outreach Lab BLADE BOND DO [facility] Start: 05-01-2022 End: 05-05-2022 Outreach Lab LUNA COLMENARES [facility]FFIC [facility]OR [facility] Start: 05-01-2022 End: 05-01-2022 Patient encounter procedure BLADE BOND DO [facility] Start: 05-01-2022 End: 05-01-2022 Well adult monitoring check done BLADE OBND DO [facility] Start: 06-08-2021 Non-patient / Non-visit Dr. Porsche Mane Work Phone: [facility] Start: 06-07-2021 End: 06-07-[address] A[facility]ane [facility] Start: 05-23-2021 End: 05-23-2021 Patient encounter procedure AYLA MANE MD [facility] Start: 04-14-[address] Ayla Mane Work Phone: [facility] Start: 03-30-2021 Non-patient / Non-visit Dr. Porsche Mane Work Phone: [facility] Start: 03-29-2021 End: 03-29-[address] [facility]ane [facility] Start: 03-17-2021 End: 03-17-[address] Ayla Mane Work Phone: [facility] Start: 01-13-2021 End: 01-13-2021 Patient encounter procedure JESENIA RUBIN TRAFFIC MONITOR SPECIALIST-[employer] SALES CONSULTANT [facility] Procedures Date Procedure Procedure Detail Performing Clinician Start: 04-25-[address] Blade Bond DO Work Phone: Start: 06-18-2023 Plain chest X-ray Dr. Jaycee Bond Work Phone: Start: 06-18-2023 SARS-CoV-2, Influenz a & RSV (PCR) Dr. Blade Bond Work Phone: Start: 03-28-[address] Blade Bond Work Phone: Start: 12-30-2022 CT angiography of ch est with contrast Dr. Blade Bond Work Phone: Start: 06-06-[address] Blade Bond Work Phone: Start: 04-14-2021 CT of chest without contrast Dr. 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) DR PATRICIA STEVENS MD Comment on above: 9 YEARS AGO Plan of Treatment Date Care Activity Detail Author Start: 06-18-2023 [facility] Start: 06-18-2023 [facility] Start: 05-29-2023 Patient referral [facility] Work Phone: Start: 12-30-2022 [facility] [place] Start: 12-30-2022 [facility] [place] Chest [facility] Patient Education [facility] [place] Work Phone: Patient referral [facility] Work Phone: Immunizations Immunization Date Immunization Notes Care Provider [facility] 11-23-2022 influenza virus vacc ine, unspecified formulation BLADE BOND DO [facility] 11-23-2022 influenza, injectabl e, quadrivalent, preservative free Dr. Blade Bond Work Phone: [facility] 12-20-2021 influenza, high dose seasonal, preservative-free BLADE BOND DO [facility] 09-20-2021 COVID-19, mRNA, LNP- S, PF, 100 mcg or 50 mcg dose; Translations: [Moderna COVID-19 Vaccine] BLADE BOND DO [facility] 09-20-2021 pneumococcal polysaccharide vaccine, 23 valent; Translations: [Pneumovax 23] BLADE BOND DO [facility] 01-25-2021 SARS-CoV-2 (COVID-19 ) mRNA-1273 vaccine AYLA MANE MD [facility] Comment on above: Result Comment: 2021: [id number] 05-10-2020 COVID-19, mRNA, LNP- S, PF, 100 mcg/ 0.5 mL dose; Translations: [Moderna COVID-19 Vaccine] JESENIA RUBIN TRAFFIC MONITOR SPECIALISTOffbeat Guides [facility] 04-12-2020 COVID-19, mRNA, LNP- S, PF, 100 mcg/ 0.5 mL dose; Translations: [Moderna COVID-19 Vaccine] JESENIA RUBIN TRAFFIC MONITOR SPECIALISTCytodynPARTY PLAN SALES CONSULTANT [facility] 11-19-2019 influenza, injectabl e, quadrivalent, preservative free; Translations: [Fluarix PF Quadrivalent ] JESENIA RUBIN TRAFFIC MONITOR SPECIALISTOffbeat Guides [facility] 01-06-2019 influenza, injectabl e, quadrivalent, preservative free; Translations: [Fluarix PF Quadrivalent ] JESENIA RUBIN [employer] [facility] 01-06-2019 pneumococcal conjuga te vaccine, 13 valent; Translations: [Prevnar 13] JESENIA RUBIN [employer] [facility] 07-10-2018 tetanus toxoid, redu reynaldo diphtheria toxoid, and acellular pertussis vaccine, adsorbed JESENIA RUBIN [employer] [facility] 12-31-2017 influenza virus vacc ine, unspecified formulation JESENIA RUBIN ICEdotPARTY PLAN SALES CONSULTANT [facility] 12-18-2016 influenza virus vacc ine, unspecified formulation JESENIA RUBIN TRAFFIC MONITOR SPECIALISTOffbeat Guides [facility] 12-06-[address] Ayla Mane Work Phone: [facility] 01-27-2016 influenza virus vacc ine, unspecified formulation JESENIA RUBIN TRAFFIC MONITOR SPECIALISTOffbeat Guides [facility] 08-24-1999 diphtheria and tetan us toxoids, adsorbed for pediatric use JESENIA RUBIN TRAFFIC MONITOR SPECIALISTOffbeat Guides [facility] Payers Date Payer Category Payer Self-pay [id number] 2022 Medicare [id number] 2022 Unknown [id number] 2019 Medicare [id number] 2019 Unknown [id number] 2015 Unknown [id number] 1955 Unknown [id number] 2.16.8 40.1.515717.3.579.2. 1955 Unknown [id number] 2.16.8 40.1.015327.3.579.2. 1955 Unknown [id number] 2.16.8 40.1.857072.3.579.2. 1955 Unknown [id number] 2.16.8 40.1.916980.3.579.2.7 1955 Unknown [id number] 2.16.8 40.1.471648.3.579.2. 1954 Unknown [id number] 2.16.8 40.1.884744.3.579.2.7 1954 Unknown [id number] 2.16.8 40.1.448400.3.579.2. 1954 Unknown [id number] 2.16.8 40.1.184875.3.579.2.7 1954 Unknown [id number] 2.16.8 40.1.408137.3.579.2. 1955 Unknown [id number] 2.16.8 40.1.809177.3.579.2.627 1954 Unknown [id number] 2.16.8 40.1.427997.3.579.2.627 1954 Unknown [id number] 2.16.8 40.1.551114.3.579.2.627 1954 Unknown [id number] 2.16.8 40.1.733533.3.579.2.627 Unknown [id number] 2.16.8 40.1.444122.3.579.2.462 Unknown [id number] 2.16.8 40.1.662476.3.579.2.462 Unknown [id number] 2.16.8 40.1.412459.3.579.2.462 Unknown [id number] 2.16.8 40.1.569926.3.579.2.462 Unknown [id number] 2.16.8 40.1.296580.3.579.2.462 Social History Date Type Detail Facility Start: 08-19-2018 End: 12-30-2022 Heavy tobacco smoker (finding) [facility] Start: 1955 Sex Assigned At Female [facility] Start: 06-10-2021 End: 06-18-2023 Tobacco smoking status NHIS Unknown if ever smoked [facility] Start: 04-23-2019 None [facility] [place] Start: 04-23-2019 Spouse/ Signif icant Other [facility] Start: 04-18-2021 Cigarettes [facility] [place] Start: 06-22-2023 End: 09-03-2023 Tobacco smoking status Light tobacco smoker (finding) [facility] Comment on above: says not much right now Sexual Orientation [facility] Start: 04-10-2019 End: 05-01-2024 Sex Female (finding) [facility] Start: 06-18-2023 Tobacco smoking stat us WAIS Smokes tobacco daily (finding) [facility] Functional Status Date Assessment Result Facility 03-26-2023 Functional Status Maintained Clay anaya [facility] Mental Status Date Assessment Result Facility 06-18-2023 Cognitive function Level Of Cons ciousness Awake;Alert;Appropriate;Follow s Commands [facility] Work Phone: 03-26-2023 [facility] 12-30-2022 Cognitive function Level Of Cons ciousness Alert;Appropriate;Follows Commands;Drowsy;Responds to vocal stimuli [facility] Work Phone: Clinical Notes 02-23-2023 to 04-25-2024 Note Date & Type Note Facility 04-25-2024 Radiology Diagnostic study note [facility] Imaging Services [address], [place] [id number] [address]ose [address] Lung Screening MR#: [id number] Acct: [id number] Name: DONALDO ZHAO Rep #: [id number] : 1955 F 69 From: Emanuel Estrada MD PCP: Dr. Blade Bond, Status: REG CLI Study:Low Dose CT Lung Screening Date of Exam : 04/25/24 Exam# [id number] Ordering Dr: Chepe Ugarte NP DIELECTRIC PRESS OPERATOR-C PROCEDURE: LOW DOSE CT LUNG SCREENING 04/25/2024 REASON FOR EXAM: SMOKING HISTORY Current smoker. Patient has smoked 1 pack per day for 52 years. COPD. Historyof anal cancer. TECHNIQUE: Low Dose CT Lung screening without contrast. Coronal and Sagittal reconstructionseries were provided. One or more dose reduction techniques were used (e.g., Automated exposure control, adjustment of the mA and/or kV according to patient size, use of iterative reconstruction technique). REFERENCE LINK: [employer] Lung-RADS RADIATION DOSE SUMMARY: CTDlvol: 4.02 mGy DLP: 139.44 mGycm COMPARISON: Comparison is made with prior study dated March 29, 2023. FINDINGS: PULMONARY NODULES: (Only nodules >3mm are reported) Nodules described below are on series 1 unless otherwise specified. Pulmonary Nodules: Hardware:None Lymph Nodes:None Heart and Vasculature:Coronary artery calcifications are noted.Atherosclerotic calcifications of the thoracic aorta. Thoracic aorta and pulmonary arteries have normal contours; noncontrast technique limits evaluation. Coronary Artery Calcifications: Present Lungs and Airways: Advanced emphysematous changes are present. Focal irregular nodular density in the posterior aspect of the lingular segment of the left upper lobe measuring 1.4 cm in the lateral aspect as seen on axial image number 156 this has improved as compared to prior study. Pleura:Unremarkable Upper Abdomen:Unremarkable Bones:Degenerative changes of the thoracic spine. CT/Low Dose CT Lung Screening IMPRESSION: Lung-RADS Category: 3 PROBABLY BENIGN (BASED ON IMAGING FEATURES OR BEHAVIOR). RECOMMEND 6 MONTH LDCT. Other Significant Findings: None. Reading Location: [place] [address] CC: JOHN Ugarte; Dr. Blade Bond, DO ~ Choke Setter: Signed [facility] 10-04-2023 Nurse Progress note patient tolerated prolia injection without signs or symptoms of a reaction Digitally Signed by Glendy Rosales RN on 10/04/2023 02:18 PM [facility] 08-27-2023 Note ORIGINAL EXAMINATION: BONE DENSITOMETRY 08/27/2023 2:19 pm TECHNIQUE: A bone density dual x-ray absorptiometry (DEXA) scan was performed of the axial (e.g. hips, spine) and/or appendicular (e.g. radius) skeleton as appropriate. COMPARISON: 06/14/2020 HISTORY: ORDERING SYSTEM PROVIDED HISTORY: Reason for Exam: Osteoporosis Screening FINDINGS: T Score Left Femoral Neck: -1.9 Left Femoral Neck: 0.641 (g/cm2) T Score Left Hip: -1.1 Left Hip: 0.806 (g/cm2) T Score Lumbar Spine: 0.2 Lumbar Spine: 1.074 (g/cmd2) BMD Change from previous Hip: 1.8 % BMD Change from previous Lumbar Spine:-2.9 % FRAX: 10 year fracture risk assessment Major osteoporotic fracture: 13% Hip fracture: 3.7% IMPRESSION: Osteopenia by WHO criteria. World Health Organization criteria: (Comparing with young normal sex matched population) - Normal: T-score at or above -1 SD (standard deviation) - Osteopenia: T-score between -1 and -2.5 SD - Osteoporosis: T-score at or below -2.5 SD The NOF recommends that FDA-approved medical therapies be considered in post-menopausal women and men age >/= 50 years with a: * Hip or vertebral fracture, or * T-score of /= 20% for major osteoporotic fractures or * >/= 3% for hip fractures All treatment decisions require clinical judgement and consideration of individual patient factors, including patient preferences, comorbidities, previous drug use, risk factors not captured in the FRAX registered model (e.g., frailty, falls, vitamin D deficiency, increased bone turnover, interval significant decline in bone density) and possible under- or over-estimation of fracture risk by FRAX. Interpreted by: Kingston Ward DO Preliminary Report By: Kingston Ward DO Electronically signed By Kingston Ward DO Dictated Date: 08/27/2023 4:17:52 PM Prelim Date: 08/27/2023 4:18:37 PM Sign Date: 08/27/2023 4:18:37 PM Ordering Provider: BLADE BOND [facility] 06-18-2023 Discharge summary Note Date/Time June 18, 2023 5:52p [facility] Medical Records Department [address] [place] [address] Emergency Department Summary 06/18/23 MR#: [id number] Acct: [id number] Name: DONALDO ZHAO Francie Rep #:[id number] : 1955 68 From: Danilo Rubio MD PCP: Dr. Blade Bond DO Status:REG ER Location: ED HPI History of Present Illness Chief Complaint: Cold Sx Narrative Narrative: 68-year-old female past medical history of COPD, wears 2 L of nasal cannula oxygen at home, recently seen by the nurse practitioner at Dr. Maza's office with pulmonology, presents with increasing shortness of breath. She states thatshe feels shortness of breath, and has been coughing with runny nose for about aweek. No fevers or chills. She has not smoked cigarettes over the last few days. She states that she used to do low-dose steroids, but gained weight was up to 300 pounds. She can tolerate them and short burst. She states that she has had a generalized weakness and increasing shortness of breath over the last week. She has had runny nose as well. [facility] Medical History Anal squamous cell carcinoma Anxiety and depression COPD (chronic obstructive pulmonary disease) Elevated troponin GERD (gastroesophageal reflux disease) Hypertension Hypothyroidism Nonobstructive atherosclerosis of coronary artery Rheumatoid arthritis Home Medications hydrocodone-acetaminophen 5-325mg 5mg-325mg 1 tab PO Q6H PRN PRN Pain 07/08/15 [History Last Taken 07/01/15] naproxen sodium 220 mg tablet (Aleve) 440 mg PO DAILY Pain 07/08/15 [History Last Taken 01/15/21 21:00] levothyroxine 25 mcg tablet 75 mcg PO DAILY thyroid 04/11/17 [History Last Taken 12/29/22] pantoprazole 40 mg tablet,delayed release 40 mg PO DAILY reflux 04/23/19 [History Last Taken 12/29/22] sertraline 100 mg tablet 200 mg PO DAILY anxiety and depression 01/18/21 [History Last Taken 12/29/22] irbesartan 300 mg tablet 300 mg PO DAILY 12/30/22 [History Last Taken 12/29/22] albuterol sulfate 90 mcg/actuation aerosol inhaler (Ventolin HFA) 2 puff inhalation Q4H PRN PRN Shortness of breath, wheezing ##3 04/04/23 [Rx Last Taken Unknown] fluticasone fur. 200 mcg-umeclid 62.5 mcg-vilant 25 mcg inhalat.powder (Trelegy Ellipta) 1 inh inhalation DAILY #3 ea 05/29/23 [Rx Last Taken Unknown] prednisone 20 mg tablet 40 mg (2 x 20 mg) PO DAILY #14 tabs 06/18/23 [Rx Last Taken Unknown] Allergy/AdvReac Type Severity Reaction Status Date / Time cefadroxil hydrate Allergy Itching Verified 06/18/23 17:08 [From [facility] [place] Surgical History H/O section H/O hysterectomy with oophorectomy History of left heart catheterization (01/17/21) Hx of appendectomy Social History household members: none Smoking Status: Current every day smoker tobacco type: cigarettes Tobacco: How many years used: 50 alcohol intake: current alcohol intake frequency: holidays/special occasions only substance use type: does not use and marijuana ROS ROS ED ROS Narrative Constitutional: No fever, no chills. Generalized weakness. HEENT: No sore throat. No neck pain. No loss of vision. Positive rhinorrhea. Cardiovascular: No chest pain. No palpitations. No pedal edema. Respiratory: Positive cough, increasing shortness of breath. Abdominal: No abdominal pain. No nausea. No vomiting. Genitourinary: Occasional dysuria. No hematuria. Musculoskeletal: No myalgias. No arthralgias. Neurologic: No headaches. No dizziness. No lightheadedness. Skin: No rash. No change in color. Psychiatric: No depression. No anxiety. EXAM Physical Exam Narrative Exam Narrative: Afebrile. Vital signs noted. HEENT: Normocephalic. Atraumatic. PERRL, EOMI. Neck soft and supple. No pointtenderness or step off. Cardiovascular: Regular rate and rhythm. No murmurs, rubs, or gallops appreciated. Respiratory: No tachypnea. Decreased breath sounds bilateral bases with expiratory wheeze right greater than left. Gastrointestinal: Abdomen soft, nontender, with normoactive bowel sounds. No rebound or guarding. Neurological: Awake. Alert. Nonfocal, nonlateralizing. Skin: No rash. Normal color. No pallor. Musculoskeletal: No pedal edema. Full range of motion extremities. Const Vital Signs: 06/18/23 17:06 06/18/23 18:19 06/18/23 18:29 Temperature 97.6 F L 96.9 F L Temperature Source Temporal Temporal Pulse Rate 85 93 87 Respiratory Rate 18 16 23 H Respiratory Effort Respiratory Pattern Normal Blood Pressure 115/97 H 131/101 H Blood Pressure Mean 103 111 Pulse Ox 97 96 Oxygen Delivery Method Nasal Cannula Nasal Cannula Oxygen Flow Rate (L/min) 2 06/18/23 18:32 06/18/23 18:32 06/18/23 18:48 Temperature 96.9 F L Temperature Source Temporal Pulse Rate 78 Respiratory Rate 19 H Respiratory Effort Normal Non-Labored Respiratory Pattern Tachypnea Blood Pressure 101/74 Blood Pressure Mean 83 Pulse Ox 96 96 Oxygen Delivery Method Nasal Cannula Oxygen Flow Rate (L/min) 2 2 MDM MDM MDM Narrative Medical decision making narrative: In the differential diagnosis is COPD exacerbation versus viral upper respiratory infection versus chronic bronchitis versus pneumonia versus pneumothorax. I have low suspicion for pneumothorax as the history and physicaldoes not really support this. Her current pulse ox is 97% on room air without evidence of hypoxia. She is not tachycardic. I have low suspicion for pulmonary embolism. She will be given a DuoNeb aerosolized treatment and 60 mg loading dose of prednisone. Chest x-ray and wall view will be obtained along with basic laboratory work and EKG. EKG was obtained and interpreted by myself independently as normal sinus rhythm at 87 bpm without ectopy or acute ST changes. No STEMI. I reviewed her laboratory work and she has normal white count of 10.3, hemoglobin stable 11.5, platelet count TNP. Her electrolyte panel shows sodium slightly low at 135 witha BUN of 12 and a creatinine of 0.67, I do not feel she is dehydrated causing her weakness, glucose is appropriately elevated at 125 with an anion gap low at 4. High-sensitivity troponin is 6. She states that she has been sick for a week. I do not feel she needs serial enzymes. Urinalysis is negative for infection. Respiratory swab is also negative for COVID, influenza, and RSV. Chest x-ray and 1 view interpreted by myself independently shows no evidence of an acute process, no consolidation or pneumothorax. I do not feel she needs antibiotics. She had been given her loading dose of steroid and a prescription was written for burst of 40 mg for the next week. Upon repeat examination afterDuoNeb aerosolized treatment she feels markedly improved. She even had her oxygen off and was ranging from 90 to 92% on room air. At this point in time, Ifeel she can be discharged safely home with follow-up. She feels improved and [facility] discussed observation with her, but she declined. She will follow-up with her pig farmer and inquire about nebulizer treatments. In the meantime she will use her rescue inhaler every 4-6 hours 2 puffs inhaled as needed. She willuse ydgt-xgv-toiwtif medications as needed as well. Return instructions to the emergency department were reviewed. Disposition is discharged in stable condition. History & Record Review Additional record(s) reviewed:: Prior labs Lab Data Attestation: I reviewed the patient's lab results. Labs: Laboratory Results - last 24 hr 06/18/23 06/18/23 17:58 18:43 WBC 10.3 RBC 4.37 Hgb 11.5 L Hct 37.4 MCV 85.6 MCH 26.3 L MCHC 30.7 L RDW Std Deviation 43.8 RDW Coeff of Kanika 14.0 Plt Count TNP MPV 10.5 Immature Gran % (Auto) 1.400 H Neut % (Auto) 82.9 H Lymph % (Auto) 9.4 L [place] % (Auto) 4.8 Eos % (Auto) 1.1 Baso % (Auto) 0.4 Absolute Neuts (auto) 8.5 H Absolute Lymphs (auto) 0.97 Nucleated RBC % 0 Differential Comment Platelet Estimate ADEQUATE Sodium 135 L Potassium 4.3 Chloride 101 Carbon Dioxide 30.0 Anion Gap 4 L BUN 12 Creatinine 0.67 Est GFR (MDRD) Af Amer 113 Est GFR (MDRD) Non-Af 93 BUN/Creatinine Ratio 18.0 Glucose 125 H Calcium 9.4 Troponin I High Sens 6 Urine Color Yellow Urine Clarity Clear Urine pH 6.0 Ur Specific [place] 1.015 Urine Protein 30 H Urine Glucose (UA) Normal Urine Ketones 5 H Urine Occult Blood 50 H Urine Nitrite Negative Urine Bilirubin Negative Urine Urobilinogen 4 H Ur Leukocyte Esterase 25 H Urine RBC 0-5 SEEN Urine WBC 0 SEEN Ur Squamous Epith Cells 0 SEEN Urine Bacteria 0 SEEN Urine Mucus 1+ Discharge Plan Triage Chief Complaint: Cold Sx ED Provider: Danilo Rubio Dx/Rx/DC Orders Clinical Impression: URI (upper respiratory infection), COPD exacerbation Instructions: ED COPD Flare, ED URI, Viral W/ Wheezing (Adult) Prescriptions: New prednisone 20 mg tablet 40 mg PO DAILY Qty: 14 0RF No Action naproxen sodium [Aleve] 220 MG tablet 440 mg PO DAILY Patient Comments: PAIN hydrocodone-acetaminophen 1 TABLET tablet 1 tab PO Q6H PRN PRN (Reason: Pain) Patient Comments: PAIN levothyroxine 25 MCG tablet 75 mcg PO DAILY pantoprazole 40 MG tablet 40 mg PO DAILY sertraline 100 mg tablet 200 mg PO DAILY Patient Comments: TAKE 2 TABLETS DAILY irbesartan 300 mg tablet 300 mg PO DAILY Patient Comments: take 1 tablet by mouth once daily albuterol sulfate [Ventolin HFA] 90 mcg/actuation HFA aerosol inhaler 2 puff inhalation Q4H PRN PRN (Reason: Shortness of breath, wheezing) Qty: 3 3RF Trelegy Ellipta 200-62.5-25 mcg blister with device 1 inh inhalation DAILY Qty: 3 3RF Primary Care Provider: Blade Bond Referrals: Flaco Tse DO [Med Staff - Active Staff] - 3-5 Days Blade Bond DO [Primary Care Provider] - Activity Restrictions/Additional Instructions: You had a DuoNeb aerosolized treatment today which helped you. You may want to ask your pig farmer about nebulizer treatments for home use. In the meantime, use your rescue inhaler every 4-6 hours 2 puffs inhaled along with taking the burst of prednisone for the next 7 days. Disposition Disposition: Home, Self Care What to do if you have Problems For any increased pain, shortness of breath, bleeding, nausea or vomiting, chestpain, or any unexpected problems, contact your Primary Care Provider. Call [facility] ([phone]) or report to the closest Emergency Room. Call 911 if necessary. 06/18/232002 <Electronically signed by Danilo Rubio MD> Cosigner Signature (if applicable): CC: Dr. Blade Bond DO ~ Signed [facility] Work Phone: 1(621) 804-368505-13-2024 Hospital Discharge instructions Additional Instructions You had a DuoNeb aerosolized treatment today which helped you. You may want to ask your pig farmer about nebulizer treatments for home use. In the meantime, use your rescue inhaler every 4-6 hours 2 puffs inhaled along with taking the burst of prednisone for the next 7 days.[facility] Work Phone: 1(519) 360-747202-22-2024 Note. MICRO - Microbiology PROCEDURE: Urine Culture [*1] SOURCE: Urine BODY SITE: COLLECTED DATE/TIME: 03/27/2023 16:24 EST RECEIVED DATE/TIME: 03/27/2023 19:06 EST START DATE/TIME: 03/27/2023 19:06 EST FREE TEXT SOURCE: FINAL REPORTS Final Report [] Verified Date/Time/Personnel: 03/29/2023 07:34 EST 10,000 - 50,000 cfu/ml Mixed growth consistent with normal urogenital nya. PRELIMINARY REPORTS Preliminary Report [] Verified Date/Time/Personnel: 03/28/2023 09:28 EST No growth to date Performing Locations *1: This test was performed at: [facility], [address] [place] [address], [facility]- , [facility] ([place])03-26-2023 Evaluation + Plan noteExtracted from: Title:Clinical Document Author:PATRICIA STEVENS Date:03/26/23 [facility] ADMISSION HISTORY AN D PHYSICIAL CHIEF COMPLAINT: HISTORY OF PRESENT ILLNESS: REVIEW OF SYSTEMS: ACTIVE PROBLEMS: (30) Arthritis, rheumatoid ([id number]) Colon polyps ([id number]) COPD - Chronic obstructive pulmonary disease (367581096) COVID-19 (7426870272) Elevated TSH (1235672157) Essential hypertension (04634917) GERD (gastroesophageal reflux disease) (102400688) Glasses (8710775286) Hard of hearing (043932591) History of anal cancer (4182046075) Hypothyroidism (69490855) Increased frequency of urination (958534467) Insomnia (972924664) salvage determiner prescription opiate use (617537367) Long-term current use of proton pump inhibitor therapy (7551864469) Major depressive disorder, recurrent (141801441) On supplemental oxygen by nasal cannula (2230814451) Osteopenia (183112177) Prolapse, uterovaginal (13132349) Restless leg syndrome (14077764) Rheumatoid nodules ([id number]) Right hip pain (37691056) Sebaceous cyst (6008340198) Shortness of breath on exertion (660855947) Snores (3940243739) SOBOE (shortness of breath on exertion) ([id number]) Tobacco use (9257700600) Urinary incontinence (1490491741) Vertigo, some tinnitus and hearing loss (6439700130) Vitamin D deficiency (23136467) MEDICATIONS: Active Inpt Meds: None Active PRN Meds: None One Time Meds: None Active IV Meds: Lactated Ringers Infusion 1,000 mL (LR 1,000 mL) Start: 03/26/23 9:39:00 EST, Rate: 50 mL/hr, 03/26/23 9:39:00 EST ALLERGIES: (1) Duricef FAMILY HISTORY: SOCIAL HISTORY: PHYSICAL EXAM: VITALS: EvrdmpVybyQDFdvraXHPuO6TWS5HkqjFw(kg) 03/26 09:4836.7--898434 2.0L/m003/26 99.5 24 Hr Tmax: 36.7 at [...] Type: OV Appointment Date:04/02/2023 01:30:00 PM Scheduled Provider:BLADE BOND DO Location:[facility] Appointment Type: OV Appointment Date:06/18/2023 03:00:00 PM Scheduled Provider:BLADE BOND DO Location:[facility] Appointment Type:PC Wellness Medicare Future [...] 12/08/22 * CT Thorax w/ Contrast 01/02/23 [facility] 02-19-2024 Hospital Discharge instructions Patient Education 03/26/2023 [...] a slower pace than normal. ?Eat soft, yufg-rt-ucelbw foods. ?Rest often. Take aypu-eri-cpkswns or prescription medicines only as told by [...] 07/03/2017 Document Revised: 01/04/2018 Document Reviewed: 07/03/2017 [employer] Patient Education 2020 [employer]. 03/26/2023 10:40:45 Diverticulosis Diverticulosis Diverticulosis is a [...] overweight. Not getting enough exercise. Smoking. Taking zdyy-tve-wjhergu pain medicines, like aspirin and ibuprofen. Having [...] health care provider or your diet and nutrition educator (dietitian). ?Take a fiber supplement or probiotic, if your health care provider approves. Take gvjb-efd-gaunrth and prescription medicines only as told by [...] 10/19/2004 Document Revised: 01/04/2018 Document Reviewed: 12/11/2016 [employer] Patient Education 2020 [employer]. 03/26/2023 10:14:29 Steps to Quit Smoking, Rhzi-ck-Opdj Steps to Quit Smoking Smoking tobacco is [...] a prescription, and some you can buy nlgf-ook-mditrsn. Some medicines may contain a drug called [...] as websites. Examples include QuitGuide from the [employer] and smokefree.gov What things can I do to make it easier to quit? Talk to your family and friends. Ask them to support and encourage you. Call a phone quitline (NOW), reach out to support groups, or work [...] 11/18/2009 Document Revised: 04/11/2019 Document Reviewed: 04/12/2019 [employer] Patient Education 2020 [employer]. 03/26/2023 10:14:13 Colonoscopy, Adult, Care After, Wfef-nh-Tfxb Colonoscopy, Adult, Care After This sheet gives [...] are soft and easy to digest. Take eckb-duu-paqahcs or prescription medicines only as told by [...] 02/24/2011 Document Revised: 11/22/2017 Document Reviewed: 10/16/2016 [employer] Patient Education 2020 [employer]. 03/26/2023 10:14:02 Monitored Anesthesia Care, Care After [...] before eating solid foods. General instructions Take audn-hbr-pymwqtd and prescription medicines only as told by [...] 05/14/2016 Document Revised: 04/22/2018 Document Reviewed: 05/14/2016 [employer] Patient Education 2020 [employer]. Follow Up Care 03/15/2023 09:34:53 With:PATRICIA STEVENS MD Address: [address] [phone] When: Unknown Comments:CALL DR STEVENS WITH ANY QUESTIONS OR CONCERNS. GO TO THE EMERGENCY ROOM WITH ANY URGENT CONCERNS. YOU DO HAVE SOME DIVERTICULI . With:PATRICIA STEVENS MD Address: Vanessa SEGUNDOEugenia GEOVAN[address] [facility] [address] [place] [phone] When: Unknown Comments:CALL DR STEVENS WITH ANY QUESTIONS OR CONCERNS. GO TO THE EMERGENCY ROOM WITH ANY URGENT CONCERNS. [facility] 02-19-2024 Note Discharge Instructions Thank you for allowing [facility] to assist you with your healthcare needs. The following is importantdischarge information regarding your hospital visit. Your Care Team BLADE BOND DO DR ROS STEVENS What to do next Scheduled Follow-Up Appointments [facility] 01[facility]30 PM ESHA DHILLON MD [facility] Women[facility] Health Services [facility] 04/02/2023 01:30 PM EST BLADE BOND DO [address] [phone] [facility] Medicare 06/18/2023 03:00 PM EDT BLADE BOND DO [address] [phone] Follow Up Appointments Follow Up with PATRICIA STEVENS MD When Why: CALL DR STEVENS WITH ANY QUESTIONS OR CONCERNS. GO TO THE EMERGENCY ROOM WITH ANY URGENT CONCERNS. YOU DO HAVE SOME DIVERTICULI . Where: Vanessa [address] [address] [phone] The Following Activity and Diet Have Been [...] Why Instructions Last Dose Unchanged acetaminophen- hydrocodone (Phippsburg 325- 5 mg oral tablet) 1 tab(s) by mouth Every 6 hours Right hip pain Duration: 30 Days Goal is #8 per month or less Unchanged acetaminophen-hydrocodone ([place]sburg 325- 5 mg oral tablet) 1 tab(s) [...] slower pace than normal. ? Eat soft, hkfo-nl-vobyxy foods. ? Rest often. Take nmrq-ufp-yuijqge or prescription medicines only as told by [...] 07/03/2017 Document Revised: 01/04/2018 Document Reviewed: 07/03/2017 [email or web address] Patient Education 2020 [employer]. Diverticulosis Diverticulosis is a condition that [...] overweight. Not getting enough exercise. Smoking. Taking gzkd-yzi-qtkinwt pain medicines, like aspirin and ibuprofen. Having [...] health care provider or your diet and nutrition educator (dietitian). ? Take a fiber supplement or probiotic, if your health care provider approves. Take hdmm-dhe-mwzyncu and prescription medicines only as told by [...] 10/19/2004 Document Revised: 01/04/2018 Document Reviewed: 12/11/2016 [employer] Patient Education 2020 [employer]. Steps to Quit Smoking Smoking tobacco [...] a prescription, and some you can buy rgcp-qml-jditchj. Some medicines may contain a drug called [...] and encourage you. Call a phone quitline (7-397-DPHSNOW), reach out to support groups, or work [...] 11/18/2009 Document Revised: 04/11/2019 Document Reviewed: 04/12/2019 [employer] Patient Education 2020 [employer]. Colonoscopy, Adult, Care After This sheet gives [...] are soft and easy to digest. Take npuv-hzh-uzsgdnr or prescription medicines only as told by [...] 02/24/2011 Document Revised: 11/22/2017 Document Reviewed: 10/16/2016 [employer] Patient Education 2020 [employer]. Monitored Anesthesia Care, Care After These instructions [...] before eating solid foods. General instructions Take kqbf-sjq-vxhmtzh and prescription medicines only as told by [...] 05/14/2016 Document Revised: 04/22/2018 Document Reviewed: 05/14/2016 [employer]or[employer] Patient Education 2020 [employer]. Additional Information VACCINATE! IT SAVES LIVES! Members of the community who have not yet received the COVID-19 vaccine and would like to receive it can visit one of [facility] vaccine clinics. There are many vaccine clinic locations within the [facility]. For locations and available times, please visit [email or web address].[email or web address] It is important to note that some COVID mobile vaccine clinics are held outdoors and may be canceled in rainy or stormy conditions. To learn more about pediatric vaccinations (ages 5-11), we invite you to visit the [facility] webpage. [email or web address]://[email or web address]/[email or web address]-Xucmxsomvph-Uxwloycysv-[email or web address] stions.htmlTo learn more about the COVID-19 vaccine, we invite you to visit the CDC website for a list of frequently asked questions.https://www.cdc.gov/coronavirus/2019-ncov/vaccines/faq.html [facility] Patient Portal Access Instructions: Stay connected with your healthcare team and access your personal medical information anytime with the [facility] Patient Portal. Please follow the directions below to create your [facility] account: 1.Access the email account you provided upon registration to the hospital/physician office.2.Look for an invitation email from [facility].3.Open the email and access the invitation link: [facility]Invitation to [facility].4.Fill in the required richardson to create your account. To access your account, visit [email or web address]. Click the blue button labeled Access Patient [...] who you will allowto register on the [facility] Patient Portal for access to your information. You can also access the [facility] Patient Portal on the [facility] Anywhere raiza. Simply click on Patient Portal and then log into your account. If you would like to receive a full copy of your medical records, please contact the [facility] Medical Records Department by calling [phone], Sunday through Sunday between 8 a.m. and [...] Call your local pharmacy or go to http://bit.ly/4C0Lq3h to find one close to you.3.Make use of household items: Use cat litter or old coffee grounds to dispose medications if other options arenot available. Mix your drugs with these household products, seal them in an airtight container andthrow it into the garbage. Call [facility]: [phone] to be sure your drugs can be [...] Care After Diverticulosis Steps to Quit Smoking, Puma-mg-Sgbx Colonoscopy, Adult, Care After, Amyf-iv-Oyti Monitored Anesthesia Care, Care After Medication Leaflets My discharge plan and instructions have been reviewed and explained to me and IPAVEL CONNIE J understand my current condition and have read and understand these discharge instructions. I have received a written copy of the plan/instructions. If I have questions, I am aware that I should contact my doctor. Patient/Fitter Up Signature: Date/Time: Relationship to Patient: Witness Name/Signature: Date/Time: [facility]02-19-2024 Note [place] ADMISSION HISTORY AND PHYSICIAL CHIEF COMPLAINT: HISTORY OF PRESENT ILLNESS: REVIEW OF SYSTEMS: ACTIVE PROBLEMS: (30) Arthritis, rheumatoid ([id number]) Colon polyps ([id number]) COPD - Chronic obstructive pulmonary disease (888132808) COVID-19 (2717443007) Elevated TSH (1117078634) Essential hypertension (58483690) GERD (gastroesophageal reflux disease) (217507562) Glasses (7798256316) Hard of hearing (896795555) History of anal cancer (7842059776) Hypothyroidism (84274696) Increased frequency of urination (530547318) Insomnia (775286200) penitentiary prescription opiate use (470628249) Long-term current use of proton pump inhibitor therapy (4996582472) Major depressive disorder, recurrent (145588875) On supplemental oxygen by nasal cannula (9258222916) Osteopenia (249841995) Prolapse, uterovaginal (80132546) Restless leg syndrome (60744661) Rheumatoid nodules (60948O2D-O62B-1457-292Q-3B48Y7I14BKS) Right hip pain (17996514) Sebaceous cyst (8168465507) Shortness of breath on exertion (613295186) Snores (8765875246) SOBOE (shortness of breath on exertion) (6I99Y50O-5QP2-0MKE-4Y5D-11OPD04684KR) Tobacco use (2404316100) Urinary incontinence (8201855128) Vertigo, some tinnitus and hearing loss (2513873822) Vitamin D deficiency (52065961) MEDICATIONS: Active Inpt Meds: None Active PRN Meds: None One Time Meds: None Active IV Meds: Lactated Ringers Infusion 1,000 mL (LR 1,000 mL) Start: 03/26/23 9:39:00 EST, Rate: 50 mL/hr, 03/26/23 9:39:00 EST ALLERGIES: (1) Duricef FAMILY HISTORY: SOCIAL HISTORY: PHYSICAL EXAM: VITALS: EojclcHrskFRMnaqaJRUbP7PLX2JbwrEt(kg) 03/26 09:4836.7--876338 2.0L/m003/26 99.5 24 Hr Tmax: 36.7 at [...] PATRICIA STEVENS MD on 03/26/2023 09:54 AM [facility]02-19-2024 Anesthesiology Consult note Patient: DONALDO ZHAO Age: 68 years Sex: Female : 1955 Associated Diagnoses: None Author: LAZARO RENO APRN-KIMBERLEE Preoperative Information Anesthesia history Patient's history: negative. Family's history: negative. Health Status Allergies: Allergic Reactions (Selected) Severity Not Documented Duricef- Swelling and hives., Allergies (1) ActiveReaction Duricefswelling Current medications: (Selected) Inpatient Medications Ordered LR 1,000 mL: 50 mL/hr, Intravenous Prescriptions Prescribed Phippsburg 325- 5 mg oral tablet: 1 tab(s), Oral, q6hr, for 30 day(s), Goal is #8 per month or less, 10 tab(s), 0 Refill(s) Phippsburg 325- 5 mg oral tablet: 1 tab(s), [...] Hair Skin and Nails: Oral, qDay, from [employer], 0 Refill(s) K2 Plus D3: 0 Refill(s) Trelegy Ellipta 200 mcg-62.5 mcg-25 mcg/inh inhalation powder: 0 Refill(s) Trelegy Ellipta 200 mcg-62.5 mcg-25 mcg/inh inhalation powder: 1 puff(s), Inhalation, qDay, at the same time every day, 0 Refill(s) nutritional supplement: Joint supplement from [employer], 0 Refill(s), Medications (1) Active Scheduled: (0) Continuous: (1) Lactated Ringers 1,000 mL 1,000 mL, Intravenous, 50 mL/hr PRN: (0) Problem list: Medical Arthritis, rheumatoid / SNOMED CT [id number]-[id number]-X00520P43323 / Confirmed Colon polyps / SNOMED CT [id number] / Confirmed COPD - Chronic obstructive pulmonary disease / SNOMED CT 903866720 / Confirmed COVID-19 / SNOMED CT 5923272860 / Confirmed Shortness of breath on exertion / SNOMED CT 172812432 / Confirmed Essential hypertension / SNOMED CT 65309390 / Confirmed GERD (gastroesophageal reflux disease) / SNOMED CT 718277982 / Confirmed Glasses / SNOMED CT 1762141587 / Confirmed Hard of hearing / SNOMED CT 583779714 / Confirmed Right hip pain / SNOMED CT 67901280 / Confirmed History of anal cancer / SNOMED CT 6963241229 / Confirmed Hypothyroidism / SNOMED CT 01349020 / Confirmed Increased frequency of urination / SNOMED CT 641253888 / Confirmed Insomnia / SNOMED CT 185937666 / Confirmed Long-term current use of proton pump inhibitor therapy / SNOMED CT 8107804110 / Confirmed Osteopenia / SNOMED CT 330509380 / Confirmed On supplemental oxygen by nasal cannula / SNOMED CT 3847974751 / Confirmed penitentiary prescription opiate use / SNOMED CT 209905378 / Confirmed Elevated TSH / SNOMED CT 2994239477 / Confirmed Major depressive disorder, recurrent / SNOMED CT 528615964 / Confirmed Restless leg syndrome / SNOMED CT 96116289 / Confirmed Rheumatoid nodules / SNOMED CT 42710G7Q-U88R-0498-851E-4Y62T3Z29IWU / Confirmed Sebaceous cyst / SNOMED CT 2749512885 / Confirmed Snores / SNOMED CT 1042421574 / Confirmed SOBOE (shortness of breath on exertion) / SNOMED CT 8J31F77L-9QS9-8NLY-2I7O-85MFH41050ZU / Confirmed Urinary incontinence / SNOMED CT 5275798694 / Confirmed Prolapse, uterovaginal / SNOMED CT 12295341 / Confirmed Vertigo, some tinnitus and hearing loss / SNOMED CT 4714948355 / Confirmed Vitamin D deficiency / SNOMED CT 96335879 / Confirmed, Active Problems (30) Arthritis, rheumatoid Colon polyps COPD - Chronic obstructive pulmonary disease COVID-19 Elevated TSH Essential hypertension GERD (gastroesophageal reflux disease) Glasses Hard of hearing History of anal cancer Hypothyroidism Increased frequency of urination Insomnia salvage determiner prescription opiate use Long-term current use of [...] Active COPD - Chronic obstructive pulmonary disease (774492837) SOBOE (shortness of breath on exertion) (5E60C77F-7MP4-2DJD-6D0S-37SWU84973UP) Arthritis, rheumatoid (3N7L29T8-Y9SZ-[id number]-U22095Y15993) Urinary incontinence (8878863393) Glasses (8889708607) Hard of hearing (689434204) Rheumatoid nodules (42094M9E-N01R-9912-285S-5U93W7Q96ZIE) Colon polyps ([id number]) Snores (2656501420) Resolved Pneumonia (963023551): Resolved. Family History: Patient was adopted. Alzheimer's disease Mother (Ada (biological mother) Marcos, ) Procedure history: Colonoscopy (091160658) on 05/06/2014 at 59 Years. H/O: tubal ligation (385355060) in 1993 at 38 Years. section (08824697) in 1985 at 30 Years. History of appendectomy (3755457333) in 1959 at 4 Years. Tonsillectomy with adenoidectomy (05823600) in 9 at 3 Years. Elbow (416639213). Comments: 05/06/2014 9:19 KEERTHI Barr nodules removed Anal carcinoma (722149834). 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 2 grandchildren. [facility] [employer] [place] [employer] 03/26/2023 Caffeine intake amount: 4 servings daily [...] 9:44 EST IV Present Present Allergies Yes Wad Compressor Operator Adjuster On Yes Colon Prep Results Excellent Consent [...] Void 03/26/2023 9:45 . Assessment and Plan [employer] of Anesthesiologists (ASA) physical status classification: Class IV. Anesthetic Preoperative Plan Anesthetic technique: MAC. Postoperative pain management: Per surgeon. Risks discussed: nausea, vomiting, hypotension, allergic reaction, serious complications. Informed consent: signed by patient. Digitally Signed by LAZARO RENO on 03/26/2023 09:47 AM [facility]01-19-2024 Note Specimen Description: Liquid Prep w/ HPV Specimen: Cervical/Endocervical Screening or Diagnostic: Screening [facility] 01-19-2024 Note Specimen Description: Liquid Prep w/ HPV Specimen: Cervical/Endocervical Screening or Diagnostic: Screening [facility] 01-19-2024 Note Specimen Description: Liquid Prep w/ HPV Specimen: Cervical/Endocervical Screening or Diagnostic: Screening [facility] 01-19-2024 Note Specimen Description: Liquid Prep w/ HPV Specimen: Cervical/Endocervical Screening or Diagnostic: Screening [facility] 01-19-2024 Note Specimen Description: Liquid Prep w/ HPV Specimen: Cervical/Endocervical Screening or Diagnostic: Screening [facility] 01-19-2024 Note Specimen Description: Liquid Prep w/ HPV Specimen: Cervical/Endocervical Screening or Diagnostic: Screening [facility] 01-19-2024 Note Specimen Description: Liquid Prep w/ HPV Specimen: Cervical/Endocervical Screening or Diagnostic: Screening [facility] 01-19-2024 Note Specimen Description: Liquid Prep w/ HPV Specimen: Cervical/Endocervical Screening or Diagnostic: Screening [facility] Evaluation + Plan note Future Appointments Appointment Date:03/21/2021 04:15:00 PM Scheduled Provider:AYLA MANE MD Location:[facility] Appointment Type:PC OV Follow Up [facility] Evaluation + Plan note Future Appointments Appointment Date:07/18/2021 03:00:00 PM Scheduled Provider:AYLA MANE MD Location:[facility] Appointment Type:PC OV [facility] Evaluation + Plan note Future Appointments Appointment Date:05/05/2022 03:00:00 PM Scheduled Provider:BLADE BOND DO Location:[facility] Appointment Type:PC OV [facility] Evaluation + Plan note Future Appointments Appointment Date:05/12/2022 03:30:00 PM Scheduled Provider:BLADE BOND DO Location:[facility] Appointment Type:PC OV Appointment Date:06/19/2022 02:30:00 PM Scheduled Provider:BLADE BOND DO Location:[facility] Appointment Type: OV Future Scheduled Tests Laboratory* Thyroid Antibodies 05/05/22 * Thyroid Stimulating Hormone 05/05/22 * Free T4 05/05/22 * A1C Hemoglobin 05/05/22 * Complete Blood Count 05/05/22 * Free T3 05/05/22 * Lipid Profile 05/05/22 * Albumin/Creatinine Ratio, Random Urine 05/05/22 * Vitamin D Level 05/05/22 * Complete Metabolic Panel 05/05/22 * anti-Thyroid Peroxidase 05/05/22 [facility] Evaluation + Plan note Future Appointments Appointment Date:06/19/2022 02:30:00 PM Scheduled Provider:BLADE BOND DO Location:[facility] Appointment Type: OV Future Scheduled Tests Laboratory* Albumin/Creatinine Ratio, Random Urine 05/05/22 [facility] Evaluation + Plan note Future Appointments Appointment Date:03/27/2023 01:30:00 PM Scheduled Provider:ESHA HAIDER MD Location:[facility] Appointment Type: OV Appointment Date:04/02/2023 01:30:00 PM Scheduled Provider:BLADE BOND DO Location:[place] Appointment Type:PC OV Appointment Date:06/18/2023 03:00:00 PM Scheduled Provider:BLADE BOND DO Location:[place] Appointment Type:PC Wellness Medicare Future Scheduled Tests [...] 12/08/22 * CT Thorax w/ Contrast 01/02/23 [facility] Evaluation + Plan note Future Appointments Appointment Date:09/03/2023 02:30:00 PM Scheduled Provider:BLADE BOND DO Location:[place] Appointment Type:PC OV Future Scheduled Tests Laboratory* .CCLLDL-Cholesterol, Direct 07/06/23 [facility] evaluation + Plan note Future Appointments Appointment Date:11/16/2023 12:30:00 PM Scheduled Provider:BLADE BOND DO Location:[place] Appointment Type:PC OV Future Scheduled Tests Laboratory* .CCLLDL-Cholesterol, Direct 07/06/23 * Basic Metabolic Panel 09/03/23 * Phosphorus Level 09/03/23 * Thyroid Stimulating Hormone 09/03/23 * Free T4 09/03/23 Radiology* CT Thorax w/o Contrast 09/03/23 [facility] evaluation + Plan note Future Appointments Appointment Date:03/11/2024 03:30:00 PM Scheduled Provider:BLADE BOND DO Location:[place] Appointment Type:PC OV Future Scheduled Tests Laboratory* .CCLLDL-Cholesterol, Direct 07/06/23 Radiology* CT Thorax w/o Contrast 09/03/23 [facility] Evaluation + Plan note Future Appointments Appointment Date:03/11/2024 03:45:00 PM Scheduled Provider:BLADE BOND DO Location:[place] Appointment Type:PC OV Diagnostic Tests Pending * Free T4 03/07/24 Future Scheduled Tests Laboratory* .CCLLDL-Cholesterol, Direct 07/06/23 Radiology* CT Thorax w/o Contrast 09/03/23 [facility] Evaluation + Plan note Future Appointments Appointment Date:07/04/2024 01:30:00 PM Scheduled Provider:BLADE BOND DO Location:[place] Appointment Type:PC OV Future Scheduled Tests Laboratory* TSH with Reflex to FT4 04/02/24 * .CCLLDL-Cholesterol, Direct 07/06/23 Radiology* CT Thorax w/o Contrast 09/03/23 [facility] evaluation note* Diagnosis Onset Date Resolution Status Dyspnea acute Lung nodule acute Rheumatoid arthritis [facility] Work Phone: Evaluation note* Diagnosis Onset Date Resolution Status Respiratory failure with hypoxia acute Tobacco abuse acute Asthma-COPD overlap syndrome chronic Rheumatoid arthritis [facility] Work Phone: Evaluation note* Diagnosis Onset Date Resolution Status Respiratory failure with hypoxia acute Asthma-COPD overlap syndrome [facility] Work Phone: Evaluation note* Diagnosis Onset Date Resolution Status Respiratory failure with hypoxia acute Asthma-COPD overlap syndrome chronic Rheumatoid arthritis chronic Sinus infection chronic Tobacco abuse [facility] Work Phone: Evaluation noteNo assessment information available [facility] Work Phone: Hospital course Narrative No data available for this section [facility] Hospital Discharge instructions No data available for this section [facility] Progress note No data available for this section [facility] Reason for referral (narrative)No reason for [facility]: Chief Complaint and Reason for Visit Chief Complaint Hospital FU Dyspnea, unspecified Dyspnea, unspecified LLL NODULE Dyspnea, unspecified Dyspnea, unspecified Reason for Visit Dyspnea Lung nodule Rheumatoid arthritis Chief Complaint 4 M FU SMOKING > 40 PK YRS Reason for Visit Respiratory failure with hypoxia Tobacco abuse Asthma-COPD overlap syndrome Rheumatoid arthritis Chief Complaint 6 m fu COVID +, [place], diarrhea, fever, SOB Reason for Visit Respiratory failure with hypoxia Asthma-COPD overlap syndrome Chief Complaint 6 M FU COLD SX Reason for Visit Respiratory failure with hypoxia Asthma-COPD overlap syndrome Rheumatoid arthritis Sinus infection Tobacco abuse Chief Complaint Admit Date NICOTINE DEPENDENCE April 25, 2024 1:5 9pm Family History No Family History Records Found Relationship Condition Age at Onset Recorded Date/T fermin Unknown Family History?- Unknown April 12, 2017 2:04am Family History?COPD, - Unknown April 23, 2019 11:32am Family History?COPD, - Unknown April 18, 2021 2:55pm Relationship Condition Age at Onset Recorded Date/T fermin Unknown Family History?- Unknown April 12, 2017 1:04am Family History?COPD, - Unknown April 23, 2019 10:32am Family History?COPD, - Unknown April 18, 2021 1:55pm Advance Directives No Advanced Directives Records Found Advance Directive Response Recorded Date/ Time Advance Directives No April 18, 022 2:55pm Living Will No April 18, 2021 2:55pm Power of Banking Supervisor No April 18 2:55pm Advance Directive Response Recorded Date/ Time Advance Directives No April 18 2 022 1:55pm Living Will No December 30 023 12:55pm Power of Banking Supervisor No December 30, 2022 12:55pm Advance Directive Response Recorded Date/ Time Advance Directives No April 18, 2 022 2:55pm Living Will No June 18, 2023 6 :32pm Power of Banking Supervisor No June 18, 2023 6:32pm Advance Directive Response Recorded Date/ Time Living Will No December 30 1:55pm Do you have a Healthcare Power of Banking Supervisor? No December 30, 2022 1:55pm Advance Directives No April 18 022 2:55pm Summary Purpose Additional Source Comments Care Team (unrecognized sect ion and content) Team Status: Active Member Role Status Dates Dr. Ayla Mane MD Family Provider Active Dr. Blade Bond , Primary Care Provider Active Team Status: Inactive Member Role Status Dates Dr. Blade Bond DO Primary Care Provider, Referrin g Provider Active Glendy Ugarte DIELECTRIC PRESS OPERATOR, DIELECTRIC PRESS OPERATOR-C Attending Provider Active Team Status: Inactive Member Role Status Dates Dr. Blade Bond DO Primary Care Provider Active Glendy Ugarte DIELECTRIC PRESS OPERATOR, DIELECTRIC PRESS OPERATOR-C Attending Provider, Referrin g Provider Active Team Status: Inactive Member Role Status Dates Dr. Blade Bond DO Primary Care Provider, Referrin g Provider Active Dr. Romain Maza MD Attending Provider Active Team Status: Active Member Role Status Dates Dr. Blade Bond DO Primary Care Provider Active Dr. Car Perales DO Attending Provider, Referring Prov ider Active Team Status: Inactive Member Role Status Dates Dr. Blade Bond DO Primary Care Provider Active Dr. Juan Carlos Rosado DO Emergency Provider Active Team Status: Inactive Member Role Status Dates Dr. Blade Bond DO Primary Care Provider Active Dr. Car Perales DO Attending Provider, Referring Prov ider Active Team Status: Inactive Member Role Status Dates Dr. Blade Bond , DO Primary Care Provider, Attendin g Provider Active Team Status: Inactive Member Role Status Dates Dr. Blade Bond DO Primary Care Provider Active Danilo Rubio MD Emergency Provider Active Team Status: Active Member Role Status Dates Dr. Blade Bond DO Primary Care Provider Active Team Status: Inactive Member Role Status Dates Dr. Blade Bond DO Primary Care Provider Active Start: April 25, 2024 End: April 25, 2024 Glendy Ugarte DIELECTRIC PRESS OPERATOR, DIELECTRIC PRESS OPERATOR-C Attending Provider Active Start: April 25, 2024 End: April 25, 2024 Glendy Ugarte DIELECTRIC PRESS OPERATOR DIELECTRIC PRESS OPERATOR-C Referring Provider Active Start: April 25, 2024 End: April 25, 2024 Goals (unrecognized section and content) Goals may be documented in a n alternate section INFORMATION SOURCE (unrecogn ized section and content) DATE CREATED AUTHOR 10/06/2023 [facility] ([facility]) DATE CREATED AUTHOR AUTHOR'S ORGANIZ ATION 07/08/2024 [facility] DATE CREATED AUTHOR AUTHOR'S ORGANIZ ATION 07/09/2024 [facility] FOR RECORDS PERTAINING TO PATIENTS WHO ARE [...] BE BASED ON THE PRIMARY CLINICAL RECORDS. [facility] [employer] [facility]. provides no warranty or guarantee of the accuracy or completeness of information in this document.
== END | disposition home or self-care (01) ==
LOC: PSN 12:39
PROVIDERS: Referring Provider Nurse Practitioner Acute Care; Visit Provider Nurse Practitioner Acute Care
DX: J44.9 Chronic obstructive pulmonary disease, unspecified (principal)
CPT/HCPCS: 94060; 94726; 94729

== ENCOUNTER → 2024-08-21 | Outpatient (CLI) | payer MEDICARE, BC, SELFPAY ==
[2024-08-21 13:45] VITALS: PULSE 100; PULSE 103; PULSE 71; PULSE 79; PULSE 92; PULSE 94; PULSE 95; O2SAT 88; O2SAT 90; O2SAT 91; O2SAT 92; O2SAT 94; O2SAT 95
--- NOTE | 2024-08-21 14:05 | CPS ---
Pt arrived on 2 lpm pulse dose oxygen. Pt was placed on room air. Walk was started with pt on room air. Three minutes into walk pt was placed on 1 lpm pulse dose. Pt was able to finish walk on 1 lpm pulse dose. Pt did state she will wear her oxygen at 1-2 lpm pulse dose if she is up and walking around.
--- NOTE | 2024-08-22 12:48 | PCM.PSN.6M ---
PSN 6 Minute Walk Test 6 Minute Walk Test 6 Minute Walk Test: 6 Minute Walk Test PSN:6-Minute Walk Test Start: 08/21/24 14:00 Freq: Status: Active Protocol: [id number] Document 08/21/24 13:45 AEH (Rec: 08/21/24 14:10 AEH [id number]) 6 Minute Walk Test Date Performed 08/21/24 Time Performed 13:45 Height 5 ft 6 in Weight: 209 lb Weight in Pounds 209.[address]: Porter Assistive device Cane used: Pre-test Oxygen Delivery Room Air Method Pulse Ox (%) 95 Pulse Rate (60-100 71 beats/min) Dyspnea Radha Scale ( 0 0-10) Exertion Radha Scale 6 (6-20) 1st minute Oxygen Delivery Room Air Method Pulse Ox (%) 90 Pulse Rate (60-100 95 beats/min) 2nd minute Oxygen Delivery Room Air Method Pulse Ox (%) 88 Pulse Rate (60-100 92 beats/min) 3rd minute Oxygen Flow Rate (L/ 1 min) (L/min) Oxygen Delivery Nasal Cannula Method Pulse Ox (%) 92 Pulse Rate (60-100 94 beats/min) 4th minute Oxygen Flow Rate (L/ 1 min) (L/min) Oxygen Delivery Nasal Cannula Method Pulse Ox (%) 92 Pulse Rate (60-100 100 beats/min) 5th minute Oxygen Flow Rate (L/ 1 min) (L/min) Oxygen Delivery Nasal Cannula Method Pulse Ox (%) 90 Pulse Rate (60-100 103 H beats/min) 6th minute Oxygen Flow Rate (L/ 1 min) (L/min) Oxygen Delivery Nasal Cannula Method Pulse Ox (%) 91 Pulse Rate (60-100 100 beats/min) Dyspnea Radha Scale ( 1 0-10) Exertion Radha Scale 13 (6-20) Post-test Oxygen Flow Rate (L/ 1 min) (L/min) Oxygen Delivery Nasal Cannula Method Pulse Ox (%) 94 Pulse Rate (60-100 79 beats/min) Full Laps Walked 3 Partial Lap, Number 0 of Tiles Walked Total Distance 177 Walked (ft) 08/21/24 14:05 Cardiopulmonary Services by Ginny Cintron Pt arrived on 2 lpm pulse dose oxygen. Pt was placed on room air. Walk was started with pt on room air. Three minutes into walk pt was placed on 1 lpm pulse dose. Pt was able to finish walk on 1 lpm pulse dose. Pt did state she will wear her oxygen at 1-2 lpm pulse dose if she is up and walking around. Initialized on 08/21/24 14:05 - END OF NOTE Interpretation Interpretation: The patient ambulated 177 feet over the course of 6 minutes beginning on room air with the use of a cane. Pretesting oxygen saturation was noted to be 95% on room air. With ambulation, the patient desaturated to 88%, requiring 1 L/min of pulsed dose supplemental oxygen to maintain appropriate saturations. Recommendations Recommendations: 1 L/min of pulsed dose supplemental oxygen should be utilized with exertion.
== END | disposition home or self-care (01) ==
LOC: PSN 13:25
PROVIDERS: Referring Provider Nurse Practitioner Acute Care; Visit Provider Nurse Practitioner Acute Care
DX: J44.9 Chronic obstructive pulmonary disease, unspecified (principal)
CPT/HCPCS: 94618

== ENCOUNTER 2024-09-22 06:58 | Observation (INO) | payer MEDICARE, BC, SELFPAY ==
--- NOTE | 2024-09-01 16:26 | PAT.ANESEVAL ---
Pre-Assessment Diagnosis/Proposed Procedure Planned Operative Procedure(s): (R) Total Hip Anterior Approach Anesthesia History Anesthesia History - case management associate: Anesthesia History - case management associate Hx Hospitalization No 09/01/24 15:37 Any Problems With Anesthesia No 09/01/24 15:37 Cholinesterase deficiency No 09/01/24 15:37 You/Your Family Experience No 09/01/24 15:37 fever (hyperthermia) with Relationship Recent Exposure to Contagious No 04/18/21 14:55 Disease Does patient have nerve No 09/01/24 15:37 stimulator Patient instructed to have device shut off --Does patient have Pacemaker or ICD? When Was Last Pacemaker Check QUESTION #4 FULL TEXT: You/Your Family Experience fever (hyperthermia) with Anesthesia Last Oral Intake Last Oral intake: Last Oral Intake NPO since Meds taken in AM with sips of water? Meds patient instructed to take am of surgery PONV PONV - case management associate: PONV - case management associate Female Yes 09/01/24 15:37 HX of Motion Sickness Yes 09/01/24 15:37 HX of N/V After Surgery No 09/01/24 15:37 Non-Smoker No 09/01/24 15:37 Duration of Surgery greater Yes 09/01/24 15:37 than 60 minutes Number of Risk Factors 3 09/01/24 15:37 PONV Score Moderate Risk 09/01/24 15:37 Height & Weight Height & Weight: Anesthesia: Height & Weight Height 5 ft 5.5 in 05/01/24 08:08 Respiratory Assessment Respiratory Assessment - case management associate: Respiratory Tract Infection Hx - case management associate Hx Respiratory Tract Infection No 09/01/24 15:37 STOP Sleep Apnea STOP Sleep Apnea - case management associate: STOP Sleep Apnea - case management associate Hx Hypertension Yes 09/01/24 15:37 Hx Sleep Apnea No 09/01/24 15:37 CPAP No 04/18/21 14:55 BIPAP No 04/18/21 14:55 Do you snore loudly (louder No 09/01/24 15:37 than talking or can be heard Do you often feel tired/ No 09/01/24 15:37 fatigued/ sleepy during daytime? Has anyone observed you stop No 09/01/24 15:37 breathing during sleep? STOP Results Negative 09/01/24 15:37 QUESTION #5 FULL TEXT : Do you snore loudly (louder than talking or can be heard through closed doors)? 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 Specify any problems Hx of Preganancy in last 3 No 09/01/24 15:37 Months Nurse Filling Out Transfusion JZOLLINGE 09/01/24 15:37 & Questions: Date: 09/01/24 09/01/24 15:37 Time: 15:39 09/01/24 15:37 Patient unable to answer at this time (ie. confused, unrespo /Reproduction History /Reproductive History - case management associate: /Reproductive Hx- case management associate Hx Now No 09/01/24 15:37 Gestational Age (in weeks): EDC: Hx Hx Para Hx Section SAB No 09/01/24 15:37 PFSH Medical History (Updated 09/01/24 @ 15:35 by Johana Miller) Hx of uterine prolapse Wears glasses Loose, teeth Marijuana use Thyroid disease History of hiatal hernia History of diverticulitis Former smoker Emphysema, unspecified Anxiety and depression Nonobstructive atherosclerosis of coronary artery Elevated troponin GERD (gastroesophageal reflux disease) Hypertension COPD (chronic obstructive pulmonary disease) Hypothyroidism Anal squamous cell carcinoma Rheumatoid arthritis Home Medications ?Medication ?Instructions ?Recorded ?Last Taken ?Type hydrocodone-acetaminophen 5-325mg 1 tab PO Q6H PRN PRN Pain 07/08/15 07/01/15 History 5mg-325mg naproxen sodium 220 mg tablet 440 mg PO DAILY Pain 07/08/15 01/15/21 21:00 History (Aleve) levothyroxine 25 mcg tablet 75 mcg PO DAILY thyroid 04/11/17 12/29/22 History pantoprazole 40 mg tablet,delayed 40 mg PO DAILY reflux 04/23/19 12/29/22 History release sertraline 100 mg tablet 200 mg PO DAILY anxiety and 01/18/21 12/29/22 History depression irbesartan 300 mg tablet 300 mg PO DAILY 12/30/22 12/29/22 History albuterol sulfate 90 mcg/actuation 2 puff inhalation Q4H PRN PRN 11/29/23 Unknown Rx aerosol inhaler (Ventolin HFA) Shortness of breath, wheezing ##3 aspirin 81 mg tablet,delayed 81 mg PO QDAY 11/29/23 Unknown History release fluticasone fur. 200 mcg-umeclid 1 inh inhalation DAILY #3 ea 11/29/23 Unknown Rx 62.5 mcg-vilant 25 mcg inhalat.powder (Trelegy Ellipta) alendronate 70 mg tablet 70 mg PO QWEEK 05/01/24 Unknown History multivitamin (Daily Multi-Vitamin 1 tab PO DAILY 09/01/24 Unknown History tablet) multivitamin with minerals 1 tab PO DAILY 09/01/24 Unknown History (Hair,Skin and Nails tablet) vitamin D3 125 mcg (5,000 1 cap PO .QD 09/01/24 Unknown History unit)-vitamin K2 180 mcg capsule (K2-D3 Max) Allergy/AdvReac Type Severity Reaction Status Date / Time cefadroxil hydrate (From Allergy Itching Verified 09/01/24 15:15 Noemi) Surgical History (Updated 09/01/24 @ 15:35 by Johana Miller) Hx of colonoscopy History of left heart catheterization (01/17/21) H/O section H/O hysterectomy with oophorectomy Hx of appendectomy Social History household members: none Smoking Status: Former smoker Tobacco: How many years used: 50 alcohol intake: current alcohol intake frequency: holidays/special occasions only substance use type: does not use and marijuana Audit: Pertinent Findings Pertinent Findings EKG Perinent findings: 06/18/2023. Normal sinus rhythm [address] and T wave abnormality. Stress test pertinent findings: 07/09/2015 EF 66% normal stress test. Heart catheterization pertinent findings: 01/17/2021. Mild coronary artery disease with no high grade stenosis noted. Mild inferior hypokinesis present. Recommendation Anesthesia Recommendation Anesthesia recommendation: OPTIMIZED for anesthesia
--- NOTE | 2024-09-11 14:00 | RAD_ITS ---
PROCEDURE: CHEST PA AND LATERAL 09/11/2024 REASON FOR EXAM: PRE OP TECHNIQUE: CHEST PA AND LATERAL COMPARISON: AP chest of 06/18/2023. RAD/Chest PA and Lateral IMPRESSION: Lungs are moderately hyperinflated with increased interstitial markings, consis tent with chronic lung disease. No acute pneumonic process is identified. No pleural effusion or pneumothorax is seen. The cardiomediastinal silhouette is within the normal range; no evidence of car diomegaly. [id number] degenerative changes of the visualized spine are seen. Prominent bilateral acromioclavicular joint degenerative changes are noted. No acute cardiopulmonary process is seen. Reading Location: [place] [id number]
--- NOTE | 2024-09-19 12:27 | PAT.ANESEVAL ---
Pre-Assessment Diagnosis/Proposed Procedure Planned Operative Procedure(s): (R) Total Hip Anterior Approach Anesthesia History Anesthesia History - export coordinator: Anesthesia History - export coordinator Hx Hospitalization No 09/01/24 15:37 Any Problems With Anesthesia No 09/01/24 15:37 Cholinesterase deficiency No 09/01/24 15:37 You/Your Family Experience No 09/01/24 15:37 fever (hyperthermia) with Relationship Recent Exposure to Contagious No 04/18/21 14:55 Disease Does patient have nerve No 09/01/24 15:37 stimulator Patient instructed to have device shut off --Does patient have Pacemaker or ICD? When Was Last Pacemaker Check QUESTION #4 FULL TEXT: You/Your Family Experience fever (hyperthermia) with Anesthesia Last Oral Intake Last Oral intake: Last Oral Intake NPO since Meds taken in AM with sips of water? Meds patient instructed to take am of surgery PONV PONV - export coordinator: PONV - export coordinator Female Yes 09/01/24 15:37 HX of Motion Sickness Yes 09/01/24 15:37 HX of N/V After Surgery No 09/01/24 15:37 Non-Smoker No 09/01/24 15:37 Duration of Surgery greater Yes 09/01/24 15:37 than 60 minutes Number of Risk Factors 3 09/01/24 15:37 PONV Score Moderate Risk 09/01/24 15:37 Height & Weight Height & Weight: Anesthesia: Height & Weight Height 5 ft 6 in 08/21/24 13:45 Respiratory Assessment Respiratory Assessment - export coordinator: Respiratory Tract Infection Hx - export coordinator Hx Respiratory Tract Infection No 09/01/24 15:37 STOP Sleep Apnea STOP Sleep Apnea - export coordinator: STOP Sleep Apnea - export coordinator Hx Hypertension Yes 09/01/24 15:37 Hx Sleep Apnea No 09/01/24 15:37 CPAP No 04/18/21 14:55 BIPAP No 04/18/21 14:55 Do you snore loudly (louder No 09/01/24 15:37 than talking or can be heard Do you often feel tired/ No 09/01/24 15:37 fatigued/ sleepy during daytime? Has anyone observed you stop No 09/01/24 15:37 breathing during sleep? STOP Results Negative 09/01/24 15:37 QUESTION #5 FULL TEXT : Do you snore loudly (louder than talking or can be heard through closed doors)? 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 Specify any problems Hx of Preganancy in last 3 No 09/01/24 15:37 Months Nurse Filling Out Transfusion JZOLLINGE 09/01/24 15:37 & Questions: Date: 09/01/24 09/01/24 15:37 Time: 15:39 09/01/24 15:37 Patient unable to answer at this time (ie. confused, unrespo /Reproduction History /Reproductive History - export coordinator: /Reproductive Hx- export coordinator Hx Now No 09/01/24 15:37 Gestational Age (in weeks): EDC: Hx Hx Para Hx Section SAB No 09/01/24 15:37 [facility] Medical History (Updated 09/01/24 @ 15:35 by Johana Miller) Hx of uterine prolapse Wears glasses Loose, teeth Marijuana use Thyroid disease History of hiatal hernia History of diverticulitis Former smoker Emphysema, unspecified Anxiety and depression Nonobstructive atherosclerosis of coronary artery Elevated troponin GERD (gastroesophageal reflux disease) Hypertension COPD (chronic obstructive pulmonary disease) Hypothyroidism Anal squamous cell carcinoma Rheumatoid arthritis Home Medications ?Medication ?Instructions ?Recorded ?Last Taken ?Type hydrocodone-acetaminophen 5-325mg 1 tab PO Q6H PRN PRN Pain 07/08/15 07/01/15 History 5mg-325mg naproxen sodium 220 mg tablet 440 mg PO DAILY Pain 07/08/15 01/15/21 21:00 History (Aleve) levothyroxine 25 mcg tablet 75 mcg PO DAILY thyroid 04/11/17 12/29/22 History pantoprazole 40 mg tablet,delayed 40 mg PO DAILY reflux 04/23/19 12/29/22 History release sertraline 100 mg tablet 200 mg PO DAILY anxiety and 01/18/21 12/29/22 History depression irbesartan 300 mg tablet 300 mg PO DAILY 12/30/22 12/29/22 History albuterol sulfate 90 mcg/actuation 2 puff inhalation Q4H PRN PRN 11/29/23 Unknown Rx aerosol inhaler (Ventolin HFA) Shortness of breath, wheezing ##3 aspirin 81 mg tablet,delayed 81 mg PO QDAY 11/29/23 Unknown History release fluticasone fur. 200 mcg-umeclid 1 inh inhalation DAILY #3 ea 11/29/23 Unknown Rx 62.5 mcg-vilant 25 mcg inhalat.powder (Trelegy Ellipta) alendronate 70 mg tablet 70 mg PO QWEEK 05/01/24 Unknown History multivitamin (Daily Multi-Vitamin 1 tab PO DAILY 09/01/24 Unknown History tablet) multivitamin with minerals 1 tab PO DAILY 09/01/24 Unknown History (Hair,Skin and Nails tablet) vitamin D3 125 mcg (5,000 1 cap PO .QD 09/01/24 Unknown History unit)-vitamin K2 180 mcg capsule (K2-D3 Max) Allergy/AdvReac Type Severity Reaction Status Date / Time cefadroxil hydrate (From Allergy Itching Verified 09/01/24 15:15 Noemi) Surgical History (Updated 09/01/24 @ 15:35 by Johana Miller) Hx of colonoscopy History of left heart catheterization (01/17/21) H/O section H/O hysterectomy with oophorectomy Hx of appendectomy Social History household members: none Smoking Status: Current every day smoker tobacco type: cigarettes Tobacco: How many years used: 50 alcohol intake: current alcohol intake frequency: holidays/special occasions only substance use type: does not use and marijuana Audit: Pertinent Findings HISTORY of Pertinent Findings History of Pertinent Findings: EKG Pertinent Findings EKG Perinent findings 06/18/2023. Normal sinus 09/01/24 16:27 rhythm [address] and T wave abnormality. Stress Test Pertinent Findings Stress test pertinent findings 07/09/2015 EF 66% normal 09/01/24 16:27 stress test. Heart Catheterization Pertinent Findings Heart catheterization 01/17/2021. Mild coronary 09/01/24 16:27 pertinent findings artery disease with no high grade stenosis noted. Mild inferior hypokinesis present . Pertinent Findings EKG Perinent findings: 09/11/2024 Sinus bradycardia, Possible Left Atrial enlargement, Borderline ECG Current Visit Impressions Current Visit Impressions: Clinical Impression(s) from Imaging Studies Chest X-Ray 09/11/24 14:00 IMPRESSION: Lungs are moderately hyperinflated with increased interstitial markings, consistent with chronic lung disease. No acute pneumonic process is identified. No pleural effusion or pneumothorax is seen. The cardiomediastinal silhouette is within the normal range; no evidence of cardiomegaly. [id number] degenerative changes of the visualized spine are seen. Prominent bilateral acromioclavicular joint degenerative changes are noted. No acute cardiopulmonary process is seen. Reading Location: [place] [address] Recommendation Anesthesia Recommendation Anesthesia recommendation: OPTIMIZED for anesthesia
[2024-09-19 13:39] LABS: Magnesium 2.4 mg/dL (1.5-2.2)
[2024-09-22] VITALS (14 sets, daily range): BP systolic 112–152; BP diastolic 51–108; PULSE 60–94; RESP 14–18; TEMP 36.1–36.6; O2SAT 95–100; BMI 33.9
--- OUTSIDE RECORDS SUMMARY | 2024-09-22 07:07 | XMS RPT_ITS | CCD ---
Author Organization [facility] Care Team Providers Care [employer] Name Role Phone AYLA MANE MD Primary Care Physician [phone] Dr. Ayla Mane Primary Care Provider Dr. Ayla Mane Referring Provider [phone] Dr. Romain Maza Attending Provider Dr. Romain Maza Referring Provider Dr. Romain Maza Other Provider Dr. Flaco Tse Attending Provider [phone] BLADE BOND DO Primary Care Physician Dr. Blade Bond Primary Care Provider [phone] Dr. Blade Bond Referring Provider [phone] Torito LETTER SORTING MACHINE OPERATOR, LETTER SORTING MACHINE OPERATOR-C Glendy Attending Provider [phone] Dr. Blade Bond Primary Care Provider [phone] Dr. Blade Bond Referring Provider [phone] Dr. Romain Maza Attending Provider Dr. Blade Bond Primary Care Provider [phone] Dr. Blade Bond Referring Provider [phone] Torito LETTER SORTING MACHINE OPERATOR, LETTER SORTING MACHINE OPERATOR-C Glendy Attending Provider [phone] BLADE BOND DO Attending Unavailable BLADE BOND DO Primary Care Unavailable TIM HUSAIN Attending Unavailable BLADE BOND DO Primary Care Unavailable DR PATRICIA STEVENS MD Attending UnavailBLADE Parker DO Primary Care Unavailable BLADE BOND DO Attending Unavailable BLADE BOND DO Primary Care Unavailable ESHA HAIDER MD Attending Unavailable LBADE BOND DO Primary Care Unavailable BOND DO, BLADE E Attending Unavailable BOND DO, BLADE E Primary Care Unavailable ESHA HAIDER MD Attending Unavailable BOND DO, BLADE E Primary Care Unavailable BOND DO, BLADE E Attending Unavailable BOND DO, BLADE E Primary Care Unavailable ESHA HAIDER MD Attending Unavailable BOND DO, BLADE E Primary Care Unavailable Dr. Blade Bond DO Primary Care Provider [phone] Torito LETTER SORTING MACHINE OPERATOR-C, Glendy Attending Provider Torito LETTER SORTING MACHINE OPERATOR-C, Glendy Referring Provider Dr. Blade Bond DO Referring Provider [phone] Blade Bond DO Primary Care Provider [phone] Ugarte LETTER SORTING MACHINE OPERATOR-C, Glendy Attending Provider Torito LETTER SORTING MACHINE OPERATOR-C, Glendy Referring Provider Dr. Flaco Tse DO Attending Provider [phone] Ugarte LETTER SORTING MACHINE OPERATOR-C, Glendy Other Provider [phone] BOND DO, BLADE E Attending Unavailable BOND [...] BOND DO, BLADE E Primary Care Unavailable Bond, Blade Primary Care Unavailable Ugarte LETTER SORTING MACHINE OPERATOR, Glendy Referring Unavailable Ugarte LETTER SORTING MACHINE OPERATOR, Glendy Attending Unavailable Ugarte LETTER SORTING MACHINE OPERATOR, Glendy Referring Unavailable Bond, Blade Primary Care Unavailable Ugarte LETTER SORTING MACHINE OPERATOR, Glendy Attending Unavailable Ugarte LETTER SORTING MACHINE OPERATOR, Glendy Referring Unavailable Flaco Tse Attending Unavailable Bond, Blade Primary Care Unavailable Ugarte LETTER SORTING MACHINE OPERATOR, Glendy Consulting Unavailable Ugarte LETTER SORTING MACHINE OPERATOR, Glendy Referring Unavailable BrownFlaco Attending Unavailable Bond, Blade Primary Care Unavailable Bond, Blade Referring Unavailable Bond, Blade Primary Care Unavailable Ugarte LETTER SORTING MACHINE OPERATOR, Glendy Attending Unavailable Bond, Blade Referring Unavailable Bond, Blade Primary Care Unavailable Ugarte LETTER SORTING MACHINE OPERATOR, Glendy Attending Unavailable Bond, Blade Primary Care Unavailable Misael Yates Referring Unavailable Misael Yates Attending Unavailable Bond, Blade Primary Care Unavailable Ugarte LETTER SORTING MACHINE OPERATOR, Glendy Referring Unavailable Ugarte LETTER SORTING MACHINE OPERATOR, Glendy Attending Unavailable Allergies Allergy Classification Reported Allergen(s) Allergy Type Date of Onset Reaction(s) Facility (15 sources) Cefadroxil; Translations: [cefadroxil] Drug Allergy swelling, hives [facility] (3 sources) Cefadroxil; Translations: [cefadroxil hydrate] Drug Allergy 2 Itching [facility] (3 sources) denosumab; Translations: [denosumab] Drug Allergy Hip pain (finding) [facility] Medications Current Medications Medication Drug Class(es) Dates Sig (Normalized) Sig (Original) acetaminophen 325 mg / HYDROcodone bitartrate 5 mg oral tablet (20 sources) Opioid Agonist Start: 09-08-2024 End: 09-23-2024 take 1 tablet by mouth every six hours Baggs 325- 5 mg oral tablet Dose = 1 tab(s), Oral, q6hr, Fill 09/08/24, R0 Temp fill due to increased need, preop. Postop will be surg team. Hx of Max #20/60day, # 20 tab(s), 0 Refill(s), Pharmacy: [facility], Right hip pain, 166.5, cm, 09/08/24 14:06:00 EDT, Height, 91.1, kg, 09/08/24 14:06:00 EDT, Dosing Weight Start Date: 09/08/24 Stop Date: 09/23/24 Status: Ordered Quantity: 20.0 Unit: tab(s) Repeat number: 1 Indications: Pain in right hip; Start: 07-04-2024 End: 09-02-2024 take 1 tablet by mouth every six hours Baggs 325- 5 mg oral tablet Dose = 1 tab(s), Oral, q6hr, Fill 07/04/24 Goal is #8 per month or less, Max #20 per 60 days, goal 90 day Rx, # 20 tab(s), 0 Refill(s), Pharmacy: [facility], Right hip pain, 166.5, cm, 07/04/24 13:44:00 EDT, Height, 95.2, kg, 07/04/24 13:44:00 EDT, Dosing Weight Start Date: 07/04/24 Stop Date: 09/02/24 Status: Ordered Quantity: 20.0 Unit: tab(s) Repeat number: 1 Indications: Pain in right hip; Start: 09-19-2023 End: 11-18-2023 take 1 tablet by mouth every six hours Baggs 325- 5 mg oral tablet Dose = 1 tab(s), Oral, q6hr, Fill 09/19/23 R0 Goal is #8 per month or less, Max #20 per 60 days, # 20 tab(s), 0 Refill(s), Pharmacy: [id number], Right hip pain, 166.5, cm, 09/03/23 14:34:00 EDT, Height, 97.8, kg, 09/03/23 14:34:00 EDT, Dosing Weight Start Date: 09/19/23 Stop Date: 11/18/23 Status: Ordered Start: 07-06-2023 End: 09-04-2023 take 1 tablet by mouth every six hours Baggs 325- 5 mg oral tablet Dose = 1 tab(s), Oral, q6hr, Ok to fill 07/06/23. Goal is #8 per month or less, Max #20 per 60 days, # 20 tab(s), 0 Refill(s), Pharmacy: [id number], Right hip pain, 166.3, cm, 07/06/23 16:06:00 EDT, Height, 98.3, kg, 07/06/23 16:06:00 EDT, Dosing Weight Start Date: 07/06/23 Stop Date: 09/04/23 Status: Ordered Start: 03-19-2023 End: 04-18-2023 take 1 tablet by mouth every six hours Baggs 325- 5 mg oral tablet Dose = 1 tab(s), Oral, q6hr, Goal is #8 per month or less, # 10 tab(s), 0 Refill(s), Pharmacy: [id number], Right hip pain, 166, cm, 02/20/23 9:34:00 EST, Height, 99.9, kg, 02/20/23 9:34:00 EST, Dosing Weight Start Date: 03/19/23 Stop Date: 04/18/23 Status: Ordered Start: 05-23-2021 End: 07-22-2021 take 1 tablet by mouth twice daily as needed for pain Baggs 325- 5 mg oral tablet Dose = 1 tab(s), Oral, BID, PRN for pain, fill on 06/22/21, X 60 day(s), # 60 tab(s), 0 Refill(s), Pharmacy: [facility], Arthritis, rheumatoid, 166, cm, 05/23/21 15:19:00 EDT, Height, 109, kg, 05/23/21 15:19:00 EDT, Dosing Weight Start Date: 05/23/21 Stop Date: 07/22/21 Status: Ordered Start: 07-08-2015 End: 03-12-2023 take 1 tablet by mouth every six hours Baggs 325- 5 mg oral tablet Dose = 1 tab(s), Oral, q6hr, Goal is #8 per month or less, # 10 tab(s), 0 Refill(s), [facility]acy: [id number], Right hip pain, 02/08/23, 166, cm, 12/30/22 8:11:00 EST, Height, 104.5, kg, 12/30/22 8:11:00 EST, Dosing Weight Start Date: 02/10/23 Stop Date: 03/12/23 Status: Ordered Start: 07-08-2015 take 1 tablet by jian th every six hours as needed Hydrocodone-Acetaminophen Active 1 TABLET PO EVERY 6 HOURS NEEDED July 08, 2015 12:00am alendronic acid 70 mg oral tablet (6 sources) Bisphosphonate Start: 05-01-2024 alendronate 70 mg oral tablet Dose : 70 mg = 1 tab(s), Oral, qWeek, # 4 tab(s), 2 Refill(s), Pharmacy: [facility], Osteoporosis, clinical based on FRAX 2023, 166.5, cm, 07/04/24 13:44:00 EDT, Height, kg, 07/04/24 13:44:00 EDT, Dosing Weight Start Date: 07/04/24 Status: Ordered Quantity: 4.0 Unit: tab(s) Repeat number: 3 Indications: Age-related osteoporosis without current pathological fracture; Start: 06-17-2020 take 6-8 [oz_av] by mouth once daily Fosamax 70 mg oral tablet Dose : 70 mg = 1 tab(s), Oral, qWeek, with 6-8 oz plain water, at least 30 minutes before first food, beverage, or medication of the day, # 13 tab(s), 3 Refill(s), Pharmacy: [id number], 166, cm, 03/01/20 14:54:00 EST, Height, kg, 05/31... Start Date: 06/17/20 Status: Ordered aspirin 81 mg delayed release oral tablet (7 sources) Platelet Aggregation Inhibitor, Nonsteroidal Anti-inflammatory Drug Start: 11-29-2023 aspirin 81 mg ora l delayed release tablet Dose : 81 mg = 1 tab(s), Oral, qDay, # 90 tab(s), 1 Refill(s), Pharmacy: [facility], 166.5, cm, 07/04/24 13:44:00 EDT, Height, kg, 07/04/24 13:44:00 EDT, Dosing Weight Start Date: 07/04/24 Status: Ordered Quantity: 90.0 Unit: tab(s) Repeat number: 2 Start: 09-03-2023 aspirin 81 mg oral delayed release tablet Dose : 81 mg = 1 tab(s), Oral, qDay, # 90 tab(s), 0 Refill(s) Start Date: 09/03/23 Status: Ordered calcium citrate 1040 mg oral tablet (3 sources) Start: 11-16-2023 calcium (as ca lcium citrate) 250 mg oral tablet Dose : 250 mg = 1 tab(s), Oral, BID, # 180 tab(s), 0 Refill(s) Start Date: 11/16/23 Status: Ordered Quantity: 180.0 Unit: tab(s) Repeat number: 1 cetirizine hydrochloride 10 mg oral tablet (16 sources) Histamine-1 Receptor Antagonist Start: 07-11-2022 Zyrtec 10 mg oral tablet Dose : 10 mg = 1 tab(s), Oral, qDay, # 90 tab(s), 3 Refill(s), [facility]acy: [facility] #[id number], 167.6, cm, 06/19/22 14:50:00 EDT, Height, kg, 06/19/22 14:50:00 EDT, Dosing Weight Start Date: 07/11/22 Status: Ordered Start: 04-04-2021 End: 03-30-2022 Zyrtec 10 mg oral tablet Dos e : 10 mg = 1 tab(s), Oral, qDay, # 90 tab(s), 3 Refill(s), Pharmacy: [facility], 166, cm, 12/20/21 14:29:00 EST, Height, kg, 12/20/21 14:29:00 EST, Dosing Weight Start Date: 03/14/22 Status: Ordered Start: 01-27-2020 End: 01-21-2021 Zyrtec 10 mg oral tablet Dos e : 10 mg = 1 tab(s), Oral, qDay, # 90 tab(s), 3 Refill(s), Pharmacy: [facility]30, 166, cm, 08/18/19 15:21:00 EDT, Height, kg, 11/19/19 11:04:00 EDT, Dosing Weight Start Date: 01/27/20 Stop Date: 01/21/21 Status: Ordered Start: 04-11-2017 End: 05-29-2023 take 1 capsule by mouth once daily Cetirizine (Zyrtec) 10 MG capsule Discontinued 10 mg PO DAILY April 11, 2017 1:00am May 29, 2023 1:49pm allergies Coricidin HBP Chest Congesti on and Cough (4 sources) Start: 06-22-2023 Coricidin HBP Chest Congestion and Cough Oral, q4h, PRN as needed, 0 Refill(s) Start Date: 06/22/23 Status: Ordered Repeat number: 1 Start: 06-22-2023 Coricidin HBP Chest Congestion and Cough Oral, q4h, PRN as needed, 0 Refill(s) Start Date: 06/22/23 Status: Ordered DME MISCellaneous (5 sources) Start: 06-22-2023 DME MISCellane ous See Instructions, Neubulizer and supplies (mask, hosem tubing, etc), # 1 EA, 0 Refill(s), COPD exacerbation, 100.8 Start Date: 06/22/23 Status: Ordered Quantity: 1.0 Unit: EA Repeat number: 1 Indications: Chronic obstructive pulmonary disease with (acute) exacerbation; Start: 06-22-2023 DME MISCellane ous See Instructions, Neubulizer and supplies (mask, hosem tubing, etc), # 1 EA, 0 Refill(s), COPD exacerbation, 100.8 Start Date: 06/22/23 Status: Ordered doxycycline hyclate 100 mg oral capsule (19 sources) Tetracycline-class Drug Start: 05-05-2022 End: 05-19-2022 doxycycline hyclate 100 mg oral capsule Dose : 100 mg = 1 cap(s), Oral, BID, X 14 day(s), # 28 cap(s), 0 Refill(s), 05/19/22 15:43:00 EDT, Pharmacy: [facility] #[id number], 167.6, cm, 05/05/22 15:01:00 EDT, Height, 106.2 Start Date: 05/05/22 Stop Date: 05/19/22 Status: Ordered Start: 06-26-2020 End: 01-19-2021 take 1 capsule by mouth twice daily Doxycycline Hyclate 100 mg capsule Discontinued 100 mg PO TWICE A DAY January 16, 2021 5:29pm January 18, 2021 11:43am copd flare up estradiol 0.1 mg/ml vaginal cream (3 sources) Estrogen Start: 03-27-2023 estradiol 0.1 mg/g vaginal cream See Instructions, use pea size at bedtime for 2 wks, then twice a week. vaginal use., # 42.5 gram(s), 0 Refill(s), Pharmacy: [id number], Uterovaginal prolapse, incomplete Atrophic vaginitis, 166, cm, [...] tab(s), 1 Refill(s), 05/17/22 15:31:00 EDT, Pharmacy: [facility] #[id number], Candidiasis, cutaneous, 167.6, cm, 05/01/22 14:50:... Start Date: 05/01/22 Stop Date: 05/17/22 Status: Ordered Bpxnxybceuk-Sykldoazx-V ilanter (20 sources) Start: 11-29-2023 Fluticasone-Um eclidin-Ashley anter (Trelegy Ellipta) 200-62.5-25 mcg blister with device Active 1 NMA INHALATION DAILY 3 November 29, 2023 2:32pm Tobacco abuse Tobacco use Start: 11-29-2023 Fluticasone-Um eclidin-Vilanter (Trelegy Ellipta) 200-62.5-25 mcg blister with device Active 1 NMA INHALATION DAILY November 29, 2023 2:32pm Start: 05-29-2023 End: 11-29-2023 Cfqjzzarqyb-Cznxikycu-Rntchh er (Trelegy Ellipta) 200-62.5-25 mcg blister with device Discontinued 1 NMA INHALATION DAILY 3 May 29, 2023 2:44pm November 29, 2023 2:34pm Tobacco abuse Tobacco use Start: 05-29-2023 End: 11-29-2023 Zeainfethxe-Jhqutneys-Kzggcj er (Trelegy Ellipta) 200-62.5-25 mcg blister with device Discontinued 1 NMA INHALATION DAILY May 29, 2023 2:44pm November 29, 2023 2:34pm Start: 05-29-2023 Fluticasone-Um eclidin-Vilanter (Trelegy Ellipta) 200-62.5-25 mcg blister with device Active 1 INH INHALATION DAILY May 29, 2023 2:44pm Start: 05-29-2023 End: 05-29-2023 Lfzkcfrtlrn-Xqnznumnk-Ymwvfj er (Trelegy Ellipta) 200-62.5-25 mcg blister with device Discontinued 1 NMA INHALATION DAILY 3 May 29, 2023 2:02pm May 29, 2023 2:44pm Tobacco abuse Tobacco use Start: 05-29-2023 End: 05-29-2023 Eotvnooblbs-Awinjtwmg-Suplux er (Trelegy Ellipta) 200-62.5-25 mcg blister with device Discontinued 1 NMA INHALATION DAILY May 29, 2023 2:02pm May 29, 2023 2:44pm Start: 05-29-2023 End: 05-29-2023 Wyhrhatnjxu-Mjnflkwxz-Zkenyc er (Trelegy Ellipta) 200-62.5-25 mcg blister with device Discontinued 1 INH INHALATION DAILY May 29, 2023 2:02pm May 29, 2023 2:44pm Start: 10-10-2022 End: 05-29-2023 Fczkwnxhshm-Fkexgmsia-Sthizs er (Trelegy Ellipta) 200-62.5-25 mcg blister with device Discontinued 1 NMA INHALATION DAILY 3 October 10, 2022 9:01am May 29, 2023 2:03pm Tobacco abuse Tobacco use Start: 10-10-2022 End: 05-29-2023 Ovaigbhxpvn-Hndjfqsrl-Rfetny er (Trelegy Ellipta) 200-62.5-25 mcg blister with device Discontinued 1 NMA INHALATION DAILY October 10, 2022 9:01am May 29, 2023 2:03pm Start: 10-10-2022 End: 05-29-2023 Jgjnqqorhif-Vapqgpevc-Kybooz er (Trelegy Ellipta) 200-62.5-25 mcg blister with device Discontinued 1 INH INHALATION DAILY October 10, 2022 9:01am May 29, 2023 2:03pm Start: 10-10-2022 Fluticasone-Um eclidin-Vilanter (Trelegy Ellipta) 200-62.5-25 mcg blister with device Active 1 INH INHALATION DAILY October 10, 2022 8:01am Start: 05-26-2022 End: 10-10-2022 Mluicsrasdc-Omjtvkgql-Vefcqf er (Trelegy Ellipta) 200-62.5-25 mcg blister with device Discontinued 1 NMA INHALATION DAILY 3 May 26, 2022 2:01pm October 10, 2022 9:01am Tobacco abuse Tobacco use Start: 05-26-2022 End: 10-10-2022 Llxeeuxkygs-Qwxgmklaw-Mbqtqo er (Trelegy Ellipta) 200-62.5-25 mcg blister with device Discontinued 1 NMA INHALATION DAILY May 26, 2022 2:01pm October 10, 2022 9:01am Start: 05-26-2022 End: 10-10-2022 Lrrwrcghoam-Hayjqlmkh-Wecmvp er (Trelegy Ellipta) 200-62.5-25 mcg blister with device Discontinued 1 INH INHALATION DAILY May 26, 2022 2:01pm October 10, 2022 9:01am Start: 05-26-2022 End: 10-10-2022 Cyfzobpyezu-Eyvnggdca-Bspgfy er (Trelegy Ellipta) 200-62.5-25 mcg blister with device Discontinued 1 INH INHALATION DAILY May 26, 2022 1:01pm October 10, 2022 8:01am Start: 05-26-2022 Fluticasone-Um eclidin-Vilanter (Trelegy Ellipta) 200-62.5-25 mcg blister with device Active 1 INH INHALATION DAILY May 26, 2022 2:01pm Start: 05-26-2022 End: 05-26-2022 Ymejlffgrhd-Lnszcjvug-Fmygsj er (Trelegy Ellipta) 200-62.5-25 mcg blister with device Discontinued 1 NMA INHALATION DAILY 60 6 May 26, 2022 1:44pm May 26, 2022 2:01pm Start: 05-26-2022 End: 05-26-2022 Vexctwbbfim-Irtdhwwdv-Lzvxgx er (Trelegy Ellipta) 200-62.5-25 mcg blister with device Discontinued 1 NMA INHALATION DAILY 60 May 26, 2022 1:44pm May 26, 2022 2:01pm Start: 05-26-2022 End: 05-26-2022 Tizsyctbmko-Eltkmyakh-Uvryhc er (Trelegy Ellipta) 200-62.5-25 mcg blister with device Discontinued 1 INH INHALATION DAILY 60 May 26, 2022 12:44pm May 26, 2022 1:01pm Start: 05-26-2022 End: 05-26-2022 Zpytjznhqfq-Ilkhyfikt-Paswuu er (Trelegy Ellipta) 200-62.5-25 mcg blister with device Discontinued 1 INH INHALATION DAILY May 26, 2022 1:44pm May 26, 2022 2:01pm Start: 06-10-2021 End: 05-26-2022 Aijxbtegkai-Gypqfdith-Pxvevl er (Trelegy Ellipta) 200-62.5-25 mcg blister with device Discontinued 1 NMA INHALATION DAILY 60 June 10, 2021 12:00am May 26, 2022 1:44pm Start: 06-10-2021 End: 05-26-2022 Cwxkoeaggvx-Kmclhzkvu-Tecnpt er (Trelegy Ellipta) 200-62.5-25 mcg blister with device Discontinued 1 NMA INHALATION DAILY June 10, 2021 12:00am May 26, 2022 1:44pm Start: 06-10-2021 End: 05-26-2022 Wrqcqpsgvwi-Fnuyjxtgh-Tisbwk er (Trelegy Ellipta) 200-62.5-25 mcg blister with device Discontinued 1 INH INHALATION DAILY June 09, 2021 11:00pm May 26, 2022 12:44pm Start: 06-10-2021 End: 05-26-2022 Crquqmfbhab-Wfohdiiau-Bjbbck er (Trelegy Ellipta) 200-62.5-25 mcg blister with device Discontinued 1 INH INHALATION DAILY June 10, 2021 12:00am May 26, 2022 1:44pm Hair Skin and Nails (7 sources) Start: 12-08-2022 Hair Skin and Nails Oral, qDay, from [facility], 0 Refill(s) Start Date: 12/08/22 Status: Ordered Repeat number: 1 Start: 12-08-2022 Hair Skin and Nails Oral, qDay, from [place], 0 Refill(s) Start Date: 12/08/22 Status: Ordered irbesartan 300 mg oral tablet (17 sources) Angiotensin 2 Receptor Gallo Start: 12-08-2022 irbesartan 300 mg oral tablet Dose : 300 mg = 1 tab(s), Oral, qDay, # 90 tab(s), 0 Refill(s), Pharmacy: [facility], 166.5, cm, 07/04/24 13:44:00 EDT, Height, kg, 07/04/24 13:44:00 EDT, Dosing Weight Start Date: 07/04/24 Status: Ordered Quantity: 90.0 Unit: tab(s) Repeat number: 1 Start: 03-14-2022 irbesartan 300 mg oral tablet Dose : 300 mg = 1 tab(s), Oral, qDay, # 90 tab(s), 1 Refill(s), Pharmacy: [facility], 166, cm, 12/20/21 14:29:00 EST, Height, kg, [...] Refill(s), 05/12/22 15:27:00 EDT, Pharmacy: [facility] #[id number], Tinea cruris, 167.6, cm, 05/05/22 15:01:00 EDT, Height, 106.2 Start Date: 05/05/22 Stop Date: 05/12/22 Status: Ordered K2 Plus D3 (6 sources) Start: 03-26-2023 K2 Plus D3 0 R efill(s) Start Date: 03/26/23 Status: Ordered Repeat number: 1 Start: 03-26-2023 K2 Plus D3 0 R efill(s) Start Date: 03/26/23 Status: Ordered levothyroxine sodium 0.075 mg oral tablet (20 sources) l-Thyroxine Start: 07-04-2024 levothyroxine 75 mcg (0.075 mg) oral tablet Dose : 75 mcg = 1 tab(s), Oral, qDay, May change based on labs 07/04/24, # 100 tab(s), 0 Refill(s), [facility]: [facility], 166.5, cm, 07/04/24 13:44:00 EDT, Height, kg, 07/04/24 13:44:00 EDT, Dosing Weight Start Date: 07/04/24 Status: Ordered Quantity: 100.0 Unit: tab(s) Repeat number: 1 Start: 07-06-2023 levothyroxine 75 mcg (0.075 mg) oral tablet Dose : 75 mcg = 1 tab(s), Oral, qDay, # 90 tab(s), 0 Refill(s), Pharmacy: [id number], 166.3, cm, 07/06/23 16:06:00 EDT, Height, kg, 07/06/23 16:06:00 EDT, Dosing Weight Start Date: 07/06/23 Status: Ordered Start: 12-08-2022 levothyroxine 75 mcg (0.075 mg) oral tablet Dose : 75 mcg = 1 tab(s), Oral, qDay, # 90 tab(s), 1 Refill(s), Pharmacy: [facility] #[id number], 166, cm, 12/08/22 14:00:00 EDT, Height, kg, 12/08/22 14:00:00 EDT, Dosing Weight Start Date: 12/08/22 Status: Ordered Start: 05-05-2022 levothyroxine 75 mcg (0.075 mg) oral tablet Dose : 75 mcg = 1 tab(s), Oral, qDay, # 30 tab(s), 1 Refill(s), [facility]acy: [facility] #[id number], 167.6, cm, 05/05/22 15:01:00 EDT, Height, kg, 05/05/22 15:01:00 EDT, Dosing Weight Start Date: 05/05/22 Status: Ordered Start: 02-10-2022 levothyroxine 75 mcg (0.075 mg) oral tablet Dose : 75 mcg = 1 tab(s), Oral, qDay, # 30 tab(s), 1 Refill(s), Pharmacy: [facility], 166, cm, 12/20/21 14:29:00 EST, Height, kg, 12/20/21 14:29:00 EST, Dosing Weight Start Date: 02/10/22 Status: Ordered Start: 04-04-2021 levothyroxine 50 mcg (0.05 mg) oral tablet Dose : 50 mcg = 1 tab(s), Oral, qDay, # 90 tab(s), 3 Refill(s), Pharmacy: [facility], 166, cm, 04/04/21 15:25:00 EST, Height, kg, 04/04/21 15:25:00 EST, Dosing Weight Start Date: 04/04/21 Status: Ordered Start: 03-03-2020 levothyroxine 50 mcg (0.05 mg) oral tablet Dose : 50 mcg = 1 tab(s), Oral, qDay, # 90 tab(s), 3 Refill(s), Pharmacy: [facility], 166, cm, 03/01/20 14:54:00 EST, Height, kg, 03/01/20 14:54:00 EST, Dosing Weight Start Date: 03/03/20 Status: Ordered Start: 04-11-2017 take 3 tablets by mo uth once daily Levothyroxine 25 MCG tablet Active 75 ug PO DAILY April 11, 2017 1:00am thyroid Start: 04-11-2017 take 75 ug by mouth once daily Levothyroxine Active 75 MCG PO DAILY April 11, 2017 1:00am Start: 04-11-2017 take 25 ug by mouth once daily Levothyroxine Active 25 MCG PO DAILY April 11, 2017 6:23pm Multivitamin preparation (1 source) Start: 09-08-2024 take 1 tablet by mouth once daily Multivitamin Dose = 1 tab(s), Oral, Daily, 0 Refill(s) Start Date: 09/08/24 Status: Ordered Repeat number: 1 mupirocin 20 mg/ml topical cream (2 sources) RNA Synthetase Inhibitor Antibacterial Start: 08-19-2018 mupirocin 2% topical cream Apply 1 raiza, Topical, TID, # 15 gram(s), 1 Refill(s), Pharmacy: [facility], Cream Start Date: 08/19/18 Status: Ordered Start: 08-19-2018 mupirocin 2% t opical cream Apply 1 raiza, Topical, TID, # 15 gram(s), 1 Refill(s), Pharmacy: [facility] #30, Cream Start Date: 08/19/18 Status: Ordered naproxen sodium 220 mg oral tablet (20 sources) Nonsteroidal Anti-inflammatory Drug Start: 08-19-2018 Aleve 220 mg oral tablet Dose : 440 mg = 2 tab(s), Oral, q8h, PRN for headache, 0 Refill(s) Start Date: 08/19/18 Status: Ordered Repeat number: 1 Start: 07-08-2015 take 2 tablets by [facility] once daily Naproxen Sodium (Aleve) 220 MG tablet Active 440 mg PO DAILY July 08, 2015 12:00am Pain Start: 07-08-2015 take 2 tablets by [facility] every twelve hours as needed Naproxen Sodium [...] labeling, # 300 lozenge(s), 0 Refill(s), Pharmacy: [id number], COPD - Chronic obstructive pulmonary disease, 166.3, cm, 07/06/23 16:06:00 EDT, Height, kg, 07/06/23 16:06:00 EDT, Dosing Weight Start Date: 07/06/23 Status: Ordered Start: 12-20-2021 nicotine 2 mg oral transmucosal lozenge 2 mg Dose = 1 lozenge(s), Transmucosal, q1h, PRN as needed for smoking cessation, as directed on package labeling, # 300 lozenge(s), 0 Refill(s), Pharmacy: [facility], COPD - Chronic obstructive pulmonary disease [...] 30 gram(s), 1 Refill(s), Pharmacy: [id number], Powder, 167.6, cm, 05/01/22 14:50:00 EDT, Height, 104.2 Start Date: 05/01/22 Stop Date: 06/30/22 Status: Ordered pantoprazole 40 mg delayed release oral tablet (20 sources) Proton Pump Inhibitor Start: 04-23-2019 pantoprazole 40 mg oral enteric coated tablet Dose : 40 mg = 1 tab(s), Oral, qDayAC, # 90 tab(s), 1 Refill(s), Pharmacy: [facility], 166.5, cm, 07/04/24 13:44:00 EDT, Height, kg, 07/04/24 13:44:00 EDT, Dosing Weight Start Date: 07/04/24 Status: Ordered Quantity: 90.0 Unit: tab(s) Repeat number: 2 Replenex jiont suppliment (2 sources) Start: 04-02-2024 Replenex jiont suppliment Replenex jiont suppliment, 0 Refill(s), 97.9 Start Date: 04/02/24 Status: Ordered Repeat number: 1 sertraline 100 mg oral tablet (20 sources) Serotonin Reuptake Inhibitor Start: 07-04-2024 End: 10-02-2024 sertraline 100 mg oral tablet Dose : 200 mg = 2 tab(s), Oral, Daily, # 180 tab(s), 0 Refill(s), Pharmacy: [facility], 166.5, cm, 07/04/24 13:44:00 EDT, Height, kg, 07/04/24 13:44:00 EDT, Dosing Weight Start Date: 07/04/24 Stop Date: 10/02/24 Status: Ordered Quantity: 180.0 Unit: tab(s) Repeat number: 1 Start: 07-06-2023 sertraline 100 mg oral tablet Dose : 200 mg = 2 tab(s), Oral, Daily, # 180 tab(s), 0 Refill(s), Pharmacy: [facility], 166.3, cm, 07/06/23 16:06:00 EDT, Height, kg, 07/06/23 16:06:00 EDT, Dosing Weight Start Date: 07/06/23 Status: Ordered Start: 12-08-2022 sertraline 100 mg oral tablet Dose : 200 mg = 2 tab(s), Oral, Daily, # 180 tab(s), 3 Refill(s), [facility]acy: [id number], 166, cm, 12/08/22 14:00:00 EDT, Height, kg, 12/08/22 14:00:00 EDT, Dosing Weight Start Date: 12/08/22 Status: Ordered Start: 03-14-2022 sertraline 100 mg oral tablet Dose : 200 mg = 2 tab(s), Oral, Daily, # 180 tab(s), 3 Refill(s), Pharmacy: [facility], 166, cm, 12/20/21 14:29:00 EST, Height, kg, 12/20/21 14:29:00 EST, Dosing Weight Start Date: 03/14/22 Status: Ordered Start: 01-18-2021 take 2 tablets by mo [facility] once daily Sertraline 100 mg tablet Active 200 mg PO DAILY January 18, 2021 1:00am anxiety and depression Start: 01-18-2021 take 200 mg by mouth once chris y Sertraline Active 200 MG PO DAILY January 18, 2021 1:00am Start: 09-06-2020 sertraline 100 mg oral tablet Dose : 200 mg = 2 tab(s), Oral, Daily, # 180 tab(s), 3 Refill(s), Pharmacy: [facility], 166, cm, 09/06/20 14:07:00 EDT, Height, kg, 09/06/20 14:15:00 EDT, Dosing Weight Start Date: 09/06/20 Status: Ordered sodium chloride 30 mg/ml inhalation solution (5 sources) Start: 12-02-2023 sodium chlorid e 3% inhalation solution 0.12 gram(s) Dose = 4 mL, Inhalation, QID, Best to use for mucus issues, # 160 mL, 1 Refill(s), [facility] COPD - Chronic obstructive pulmonary disease Shortness of breath on exertion, 166.5, cm, 11/16/23 12:36:00 EDT, Height, kg, 11/16/23 12:26:00 EDT, Dosing Weight Start Date: 12/02/23 Status: Ordered Quantity: 160.0 Unit: mL Repeat number: 2 Indications: Chronic obstructive pulmonary disease, unspecified; Shortness of breath; Start: 07-06-2023 sodium chlorid e 3% inhalation solution 0.12 gram(s) Dose = 4 mL, Inhalation, QID, Best to use for mucus issues, # 160 mL, 1 Refill(s), Pharmacy: [id number], COPD - Chronic obstructive [...] qHS, # 30 tab(s), 4 Refill(s), Pharmacy: [facility], 166, cm, 09/06/20 14:07:00 EDT, Height, kg, 09/06/20 14:15:00 EDT, Dosing Weight Start Date: 09/06/20 Status: Ordered Trelegy Ellipta 200 mcg-62.5 mcg-25 mcg/inh inhalation powder (12 sources) Start: 07-06-2023 take 1 dose by inhalation once daily Trelegy Ellipta 200 mcg-62.5 mcg-25 mcg/inh inhalation powder Dose = 1 puff(s), Inhalation, qDay, at the same time every day, # 3 EA, 1 Refill(s), Pharmacy: [facility], 166.3, cm, 07/06/23 16:06:00 EDT, Height, kg, 07/06/23 16:06:00 EDT, Dosing Weight Start Date: 07/06/23 Status: Ordered Quantity: 3.0 Unit: EA Repeat number: 2 Start: 07-06-2023 take 1 dose by inhal ation once daily Trelegy Ellipta 200 mcg-62.5 mcg-25 mcg/inh inhalation powder Dose = 1 puff(s), Inhalation, qDay, at the same time every day, # 3 EA, 1 Refill(s), Pharmacy: [facility], 166.3, cm, 07/06/23 16:06:00 [...] qWeek, # 12 cap(s), 1 Refill(s), Pharmacy: [facility], Vitamin D deficiency, 166.8, cm, 09/20/21 15:00:00 EDT, Height Start Date: 10/03/21 Status: Ordered Completed/Discontinued Medications Medication Drug Class(es) Dates Sig (Normalized) Sig (Original) acetaminophen 325 mg / oxyCODONE hydrochloride 5 mg oral tablet (8 sources) Opioid Agonist Start: 07-02-2014 End: 07-03-2014 Oxycodone-Acetamino phen 1 TABLET tablet Discontinued 1 {tbl} PO EVERY 6 HOURS NEEDED as needed for Pain July 02, 2014 12:00am July 03, 2014 2:10pm Start: 07-02-2014 End: 07-03-2014 take 1 tablet by mouth every six hours as needed Oxycodone-Acetaminophen Discontinued 1 TABLET PO EVERY 6 HOURS NEEDED July 02, 2014 12:00am July 03, 2014 2:10pm [id number] 200 actuat albuterol 0.09 mg/actuat metered dose inhaler (20 sources) beta2-Adrenergic Agonist Start: 03-17-2021 End: 11-29-2023 Albuterol Sulfate (Ventolin Hfa) 90 mcg/actuation HFA aerosol inhaler Discontinued 2 NMA INHALATION EVERY 4 HOURS NEEDED as needed for Shortness of breath, wheezing 3 April 04, 2023 4:43pm November 29, 2023 2:34pm Lung nodule Solitary pulmonary nodule Start: 03-17-2021 End: 04-04-2023 take 1 puff(s) by inhalation every four hours as needed Albuterol Sulfate (Ventolin Hfa) 90 mcg/actuation HFA aerosol inhaler Active 2 PUFF INHALATION EVERY 4 HOURS NEEDED 3 April 04, 2023 4:43pm Start: 03-17-2021 take 1 puff(s) by in halation every four hours as needed Albuterol Sulfate (Ventolin Hfa) 90 mcg/actuation HFA aerosol inhaler Active 2 PUFF INHALATION EVERY 4 HOURS NEEDED March 17, 2021 2:15pm Start: 08-18-2019 take 1 dose by inhal ation every six hours albuterol 2.5 mg/3 mL (0.083%) inhalation solution Dose : 2.5 mg = 3 mL, Inhalation, q6hr, Dispense 360 ampoules for each 3-month.. Thank you, # 1,080 mL, 3 Refill(s), Pharmacy: [facility], 166, cm, 08/18/19 15:21:00 EDT, Height, kg, 08/18/19 15:18:00 EDT, Dosing Weight Start Date: 08/18/19 Status: Ordered Start: 08-18-2019 take 1 dose by inhal ation every six hours albuterol 2.5 mg/3 mL (0.083%) inhalation solution Dose : 2.5 mg = 3 mL, Inhalation, q6hr, Dispense 360 ampoules for each 3-month.. Thank you, # 1,080 mL, 3 Refill(s), Pharmacy: [facility], 166, cm, 08/18/19 15:21:00 EDT, Height, kg, 08/18/19 15:18:00 EDT, Dosing Weight Start Date: 08/18/19 Status: Ordered Start: 07-07-2019 take 2 puff(s) by in halation every four hours as needed for wheezing ProAir HFA MDI (90 mcg/inh) inhalation aerosol 2 puff(s), Inhalation, q4h, PRN as needed for wheezing, # 3 EA, 4 Refill(s), Pharmacy: [facility], 166, cm, 07/07/19 15:28:00 EDT, Height, kg, 07/07/19 15:28:00 EDT, Dosing Weight Start Date: 07/07/19 Status: Ordered Quantity: 3.0 Unit: EA Repeat number: 5 Start: 07-07-2019 take 2 puff(s) by in halation every four hours as needed for wheezing ProAir HFA MDI (90 mcg/inh) inhalation aerosol 2 puff(s), Inhalation, q4h, PRN as needed for wheezing, # 3 EA, 4 Refill(s), Pharmacy: [facility], 166, cm, 07/07/19 15:28:00 EDT, [...] as needed for Shortness of breath, wheezing 3 3 January 21, 2016 1:00am March 17, 2021 2:16pm Start: 01-21-2016 End: 03-17-2021 Albuterol Sulfate (Ventolin Hfa) 1 INHALER inhaler Discontinued 2 NMA INHALATION EVERY 4 HOURS NEEDED as needed for Shortness of breath, wheezing 3 January 21, 2016 1:00am March 17, 2021 2:16pm Start: 01-21-2016 End: 03-17-2021 take 1 puff(s) by inhalation every four hours as needed Albuterol Sulfate (Ventolin Hfa) 1 INHALER inhaler Discontinued 2 PUFF INHALATION EVERY 4 HOURS NEEDED 3 January 21, 2016 12:00am March 17, 2021 1:16pm Start: 01-21-2016 End: 03-17-2021 take 1 puff(s) by inhalation every four hours as needed Albuterol Sulfate (Ventolin Hfa) 1 INHALER inhaler Discontinued 2 PUFF INHALATION EVERY 4 HOURS NEEDED 3 January 21, 2016 1:00am March 17, 2021 2:16pm albuterol 0.833 mg/ml / ipratropium bromide 0.167 mg/ml inhalation solution (5 sources) Anticholinergic, beta2-Adrenergic Agonist Start: 07-06-2023 End: 08-03-2023 take 1 dose by inhalation three times daily as needed for wheezing albuterol-ipratropium 2.5 mg-0.5 mg/3 mL inhalation solution Dose = 3 mL, Inhalation, TID, PRN as needed for shortness of breath or wheezing, Fill 07/06/23, goal is PRN use by 07/21/23, # 90 mL, 1 Refill(s), Pharmacy: [facility], COPD exacerbation, 166.3, cm, 07/06/23 16:06:00 EDT, Height, kg, 07/06/23 16:06:00 EDT, Dosing Weight Start Date: 07/06/23 Stop Date: 08/03/23 Status: Ordered Quantity: 90.0 Unit: mL Repeat number: 2 Indications: Chronic obstructive pulmonary disease with (acute) exacerbation; Blm M/T Susp (8 sources) Start: 07-30-2014 End: 08-20-2014 take 1 [...] weekly, # 30 gram(s), 3 Refill(s), Pharmacy: [facility], 166, cm, 09/06/20 14:07:00 EDT, Height, kg, 09/06/20 14:15:00 EDT, Dosing Weight Start Date: 09/06/20 Status: Ordered 1 ml denosumab 60 mg/ml prefilled syringe (2 sources) RANK Ligand Inhibitor Start: 09-03-2023 Prolia 60 mg/mL subcutaneous solution Dose : 60 mg = 1 mL, Subcutaneous, q6mo, M81.0, # 1 mL, 1 Refill(s), [facility]oporosis, clinical based on FRAX 2023, 166.5, cm, 09/03/23 14:34:00 EDT, Height, kg, 09/03/23 14:34:00 EDT, Dosing Weight Start Date: 09/03/23 Status: Ordered diazePAM 5 mg oral tablet (8 sources) Benzodiazepine Start: 07-30-2014 End: 08-20-2014 take 1 tablet by mouth twice daily as needed for anxiety Diazepam 5 MG tablet Discontinued 5 mg PO TWICE A DAY as needed for Anxiety July 30, 2014 12:00am August 20, 2014 9:51am estrogens, conjugated (intermediate) 0.625 mg/ml vaginal cream (1 source) Estrogen Start: 09-06-2020 conjugated estrogens 0.625 mg/g vaginal cream with applicator See Instructions, Apply pea-sized dose of cream into the vagina twice weekly, # 30 gram(s), 3 Refill(s), Pharmacy: [facility], 166, cm, 09/06/20 14:07:00 EDT, Height, kg, 09/06/20 14:15:00 EDT, Dosing Weight Start Date: 09/06/20 Status: Ordered fluticasone propionate 0.05 mg/actuat metered dose nasal spray (8 sources) Corticosteroid Start: 04-23-2019 End: 12-30-2022 Fluticasone Propionate 1 SPRAY spray,suspension Discontinued 2 NMA NASAL DAILY April 23, 2019 12:00am December 30, 2022 2:03pm allergies Start: 04-23-2019 End: 12-30-2022 Fluticasone Propionate Disco ntinued 2 SPRAY NASAL DAILY April 23, 2019 12:00am December 30, 2022 2:03pm levoFLOXacin 500 mg oral tablet (16 sources) Quinolone Antimicrobial Start: 04-24-2019 End: 01-18-2021 take 1 tablet by mouth once daily Levofloxacin 500 MG tablet Discontinued 500 mg PO DAILY January 16, 2021 5:33pm January 18, 2021 11:45am arthritis lisinopril 10 mg oral tablet (20 sources) Angiotensin Converting Enzyme Inhibitor Start: 12-20-2020 End: 12-30-2022 take 1 tablet by mouth once daily Lisinopril 10 mg Tablet Discontinued 10 mg PO DAILY 30 30 0 January 26, 2021 1:00am December 30, 2022 2:03pm Start: 09-12-2018 End: 01-26-2021 take 2 tablets by mouth once daily, then take 2 tablets by mouth once daily, then take 1 tablet by mouth once daily Lisinopril 5 MG tablet Discontinued 10 mg PO DAILY 0 0 January 18, 2021 2:34pm January 26, 2021 9:45pm BP Change Lisinopril dosage from 10mg (2 tablets) [...] tablet) daily. oseltamivir 75 mg oral capsule (16 sources) Neuraminidase Inhibitor Start: 01-18-2021 End: 01-26-2021 take 1 capsule by mouth twice daily Oseltamivir (Tamiflu) 75 mg capsule Discontinued 75 mg PO TWICE A DAY January 18, 2021 6:06pm January 26, 2021 9:45pm INFLUENZA A predniSONE 20 mg oral tablet (20 sources) Start: 06-18-2023 End: 11-29-2023 take 2 tablets by mouth once daily Prednisone 20 mg tablet Discontinued 40 mg PO DAILY 14 June 18, 2023 12:00am November 29, 2023 2:18pm Start: 06-18-2023 take 40 mg by mouth once daily Prednisone Active 40 MG PO DAILY June 18, 2023 12:00am Start: 01-12-2021 End: 01-19-2021 predniSONE 20 mg oral tablet Dose : 60 mg = 3 tab(s), Oral, qDay, X 7 day(s), # 21 tab(s), 0 Refill(s), 01/19/21 15:28:00 EST, Pharmacy: [facility], COPD exacerbation, 167.6, cm, 01/12/21 14:52:00 EST, Height, kg, 01/12/21 14:52:00 EST, Dosing Weight Start Date: 01/12/21 Stop Date: 01/19/21 Status: Ordered Start: 04-24-2019 End: 01-26-2021 take 2 tablets by mouth once daily Prednisone 20 mg tablet Discontinued 40 mg PO DAILY January 18, 2021 6:06pm January 26, 2021 9:45pm STEROID Start: 04-24-2019 End: 01-26-2021 take 40 mg by mouth once daily Prednisone Discontinued 40 MG PO DAILY January 18, 2021 6:06pm January 26, 2021 9:45pm rivaroxaban 15 mg oral tablet (8 sources) Factor Xa Inhibitor Start: 07-27-2014 End: 07-30-2014 take 1 tablet by mouth twice daily Rivaroxaban (Xarelto) 15 MG tablet Discontinued 15 mg PO TWICE A DAY 42 0 July 27, 2014 12:00am July 30, 2014 3:57pm Problems Active Problems Problem Classification Problem Date Documented Da te Episodic/Chronic Acute myocardial infarction (8 sources) Myocardial infarction; Translations: [Non-ST elevation (NSTEMI) myocardial infarction] 02-11-2021 Chronic Administrative/social admission (1 source) Adopted 09-08-2024 Episodic Asthma (11 sources) Asthma-chronic obstructive pulmonary disease overlap syndrome; Translations: [Asthma-chronic obstructive pulmonary disease overlap syndrome] 12-30-2022 Chronic Cancer of rectum and anus (11 sources) History of malignant neoplasm of anus; Translations: [Personal history of other malignant neoplasm of rectum, rectosigmoid junction, and anus] Onset: 4 02-09-2023 Episodic Chronic obstructive pulmonary disease and bronchiectasis (20 sources) Chronic obstructive lung disease; Translations: [Acute exacerbation of chronic obstructive airways disease] Onset: 4 05-06-2014 Chronic Conditions associated with dizziness or vertigo (9 sources) Vertigo 06-19-2022 Episodic Coronary atherosclerosis and other heart disease (8 sources) Non-obstructive atherosclerosis of coronary artery; Translations: [Atherosclerotic heart disease of [place] coronary artery without angina pectoris] 01-17-2021 Chronic Esophageal disorders (20 sources) Gastroesophageal reflux disease; Translations: [Gastro-esophageal reflux disease without esophagitis] 09-20-2021 Chronic Essential hypertension (20 sources) Essential hypertension; Translations: [Essential (primary) hypertension] Onset: 5 09-20-2021 Chronic Genitourinary symptoms and ill-defined conditions (8 sources) Urinary incontinence 05-06-2014 Chronic Influenza (16 sources) Influenza due to Influenza A virus; Translations: [Influenza due to other identified influenza virus with other respiratory manifestations] 01-26-2021 Episodic Malaise and fatigue (8 sources) Asthenia; Translations: [Other malaise] 01-18-2021 Episodic Mood disorders (15 sources) Depressive disorder; Translations: [Recurrent major depression] 07-02-2020 Chronic Nutritional deficiencies (13 sources) Vitamin D deficiency 10-03-2021 Chronic Osteoporosis (8 sources) Osteoporosis; Translations: [Age-related osteoporosis without current pathological fracture] Onset: 4 09-03-2023 Chronic Comment on above: Joint pain with prol ia 03/2024 cessation Other and unspecified benign neoplasm (15 sources) Polyp of colon 05-06-2014 Episodic Other bone disease and musculoskeletal deformities (8 sources) Osteopenia 09-20-2021 Episodic Other ear and sense organ disorders (15 sources) Hearing loss 05-06-2014 Chronic Other gastrointestinal disorders (2 sources) Heartburn 05-06-2014 Episodic Other hereditary and degenerative nervous system conditions (9 sources) Restless legs 12-08-2022 Chronic Other lower respiratory disease (15 sources) Snoring 05-07-2014 Episodic Other lower respiratory disease (17 sources) Dyspnea on exertion 05-06-2014 Episodic Other lower respiratory disease (8 sources) Dyspnea; Translations: [Dyspnea, unspecified] 03-17-2021 Episodic Comment on above: High clinical suspic ion for COPD Other lower respiratory disease (8 sources) Nodule of lung; Translations: [Solitary pulmonary nodule] 03-17-2021 Episodic Comment on above: 8 mm left lower lobe Other lower respiratory disease (1 source) Dyspnea, unspecified; Translations: [Other respiratory abnormalities] Episodic Other lower respiratory disease (1 source) Cough 10-25-2021 Episodic Other lower respiratory disease (7 sources) Multiple nodules of lung 04-17-2023 Episodic Other non-traumatic joint disorders (13 sources) Hip pain 12-20-2021 Episodic Other nutritional; endocrine; and metabolic disorders (2 sources) Obesity 05-06-2014 Chronic Other upper respiratory disease (8 sources) Allergic rhinitis; Translations: [Allergic rhinitis, unspecified] 01-18-2021 Chronic Other upper respiratory infections (5 sources) Sinusitis; Translations: [Chronic sinusitis, unspecified] 05-29-2023 Chronic Other upper respiratory infections (4 sources) Upper respiratory infection; Translations: [Acute upper respiratory infection, unspecified] 06-18-2023 Episodic Phlebitis; thrombophlebitis and thromboembolism (8 sources) Deep venous thrombosis; Translations: [Acute embolism and thrombosis of unspecified deep veins of unspecified lower extremity] 04-12-2017 Episodic Prolapse of female genital organs (11 sources) Uterovaginal prolapse; Translations: [Uterovaginal prolapse, unspecified] Onset: 02-09-2023 Chronic Residual codes; unclassified (10 sources) Tobacco user; Translations: [Tobacco use] 05-26-2022 Episodic Residual codes; unclassified (13 sources) Insomnia 10-25-2021 Episodic Respiratory failure; insufficiency; arrest (adult) (19 sources) Patient on oxygen; Translations: [Chronic hypoxemic respiratory failure] 09-20-2021 Chronic Respiratory failure; insufficiency; arrest (adult) (20 sources) Acute respiratory failure; Translations: [Acute respiratory failure with hypoxia] 06-10-2021 Episodic Rheumatoid arthritis and related disease (20 sources) Rheumatoid arthritis; Translations: [Subcutaneous rheumatoid nodule] 05-06-2014 Chronic Screening and history of mental health and substance abuse codes (2 sources) Tobacco use and exposure - finding 07-04-2024 Chronic Skin and subcutaneous tissue infections (8 sources) Abscess; Translations: [Cutaneous abscess, unspecified] 06-26-2020 Episodic Thyroid disorders (20 sources) Hypothyroidism; Translations: [Hypothyroidism, unspecified] Onset: Chronic Unclassified (15 sources) Eye glasses, device (physical object) 05-06-2014 Unclassified (2 sources) Osteopenia 05-06-2014 Unclassified (13 sources) Long-term current use of proton pump inhibitor therapy 09-20-2021 Unclassified (13 sources) Prescribed medication regimen behavior finding 09-20-2021 Unclassified (9 sources) Sebaceous cyst of skin 06-19-2022 Viral infection (6 sources) Disease caused by 2018-nCoV; Translations: [COVID-19] [...] Test Name Value Interpretation Reference Range Facility MRSA/SAID NASAL SCREENon MRSA+SAID SCRN Reason for Exam: PRE OP MRSA MRSA Negative S. AUREUS S. aureus Negative Normal [facility] Comment on above: Performed By: #### M 100.651 #### [facility] [address] [place], [place], [id number] MR/PAT.GIDEONon 09-19-2024 MR/PAT.GIDEON [facility] Medical Records Department [address] [place] [address] PAT - Anesthesia 09/19/24 1227 MR#: [id number] Acct: [id number] Name: DONALDO ZHAO Rep #: [id number] : 1955 69 From: Blaze Charles MD PCP: Dr. 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 When Was Last Pacemaker Check QUESTION #4 FULL TEXT: You/Your Family Experience fever (hyperthermia) with Anesthesia Last Oral Intake Last Oral intake: Last Oral Intake NPO since Meds taken in AM with sips of water? Meds patient instructed to take am of surgery PONV PONV - decorating machine operator: PONV - decorating machine operator Female Yes 09/01/24 15:37 HX of Motion Sickness Yes 09/01/24 15:37 HX of N/V After Surgery No 09/01/24 15:37 Non-Smoker No 09/01/24 15:37 Duration of Surgery greater Yes 09/01/24 15:37 than 60 minutes Number of Risk Factors 3 09/01/24 15:37 PONV Score Moderate Risk 09/01/24 15:37 Height Weight Height Weight: Anesthesia: Height Weight Height 5 ft 6 in 08/21/24 13:45 Respiratory Assessment Respiratory Assessment - decorating machine operator: Respiratory Tract Infection Hx - decorating machine operator Hx Respiratory Tract Infection No 09/01/24 15:37 STOP Sleep Apnea STOP Sleep Apnea - decorating machine operator: STOP Sleep Apnea - decorating machine operator Hx Hypertension Yes 09/01/24 15:37 Hx Sleep Apnea No 09/01/24 15:37 CPAP No 04/18/21 14:55 BIPAP No 04/18/21 14:55 Do you snore loudly (louder No 09/01/24 15:37 than talking or can be heard Do you often feel tired/ No 09/01/24 15:37 fatigued/ sleepy during daytime? Has anyone observed you stop No 09/01/24 15:37 breathing during sleep? STOP Results Negative 09/01/24 15:37 QUESTION #5 FULL TEXT : Do you snore loudly (louder than talking or can be heard through closed doors)? 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 Specify any problems Hx of Preganancy in last 3 No 09/01/24 15:37 Months Nurse Filling Out Transfusion FrancieZOANAIS 09/01/24 15:37 Questions: Date: 09/01/24 09/01/24 15:37 Time: 15:39 09/01/24 15:37 Patient unable to answer at this time (ie. confused, unrespo /Reproduction History /Reproductive History - decorating machine operator: /Reproductive Hx- decorating machine operator Hx Now No 09/01/24 15:37 Gestational Age (in weeks): EDC: Hx Hx Para Hx Section SAB No 09/01/24 15:37 PFSH Medical History (Updated 09/01/24 @ 15:35 by Johana Miller) Hx of uterine prolapse Wears glasses Loose, teeth Marijuana use Thyroid disease History of hiatal hernia History of diverticulitis Former smoker Emphysema, unspecified Anxiety and depression Nonobstructive atherosclerosis of coronary artery Elevated troponin GERD (gastroesophageal reflux disease) Hypertension COPD (chronic obstructive pulmonary disease) Hypothyroidism Anal squamous cell carcinoma Rheumatoid arthritis Home Medications ???Medication ???Instructions ???Recorded ???Last Taken ???Type hydrocodone-acetaminop hen 5-325mg 1 tab PO Q6H PRN PRN Pain 6 07/01/15 History 5mg-325mg naproxen sodium 220 mg tablet 440 mg PO DAILY Pain 07/08/1501/05 21:00 History (Alev (more content not included)... Normal [facility] Magnesiumon 09-19-2024 Magnesium [Mass/Vol] 2.4 mg/dL High 1.5-2.2 [facility] Comment on above: Performed By: #### L [phone] #### [facility] [address] [place], [place], [address] Chest PA and Lateralon 09-11 Chest PA and Lateral [facility] Imaging Services [address] [place], [place] [address] Chest PA and Lateral MR#: [id number] Acct: [id number] Name: DONALDO ZHAO Rep #: [id number] : 1955 F 69 From: Kingston Olguin PCP: Dr. Blade Bond, DO Status: PRE [facility] [place] Study: Chest PA and Lateral Date of Exam: 09/11/24 Exam# [id number] Ordering Dr: Misael Yates MD PROCEDURE: CHEST PA AND LATERAL 09/11/2024 REASON FOR EXAM: PRE OP TECHNIQUE: CHEST PA AND LATERAL COMPARISON: AP chest of 06/18/2023. RAD/Chest PA and Lateral IMPRESSION: Lungs are moderately hyperinflated with increased interstitial markings, consistent with chronic lung disease. No acute pneumonic process is identified. No pleural effusion or pneumothorax is seen. The cardiomediastinal silhouette is within the normal range; no evidence of cardiomegaly. [id number] degenerative changes of the visualized spine are seen. Prominent bilateral acromioclavicular joint degenerative changes are noted. No acute cardiopulmonary process is seen. Reading Location: [facility] CC: Dr. Blade Bond DO; Dr. Misael Yates MD Fire Safety Manager: Signed Normal [facility] .Auto Diffon 09-08-2024 Basophil, Absolute 0.1 10 3/mcL Normal 0.0-0.3 [facility] Comment on above: Performed By: #### A DIFF, CBC, CMP, ANEU, GFR, TSHR #### [address] [address] Basophils/100 WBC (Bld) 0.6 % Normal 0.0-2.5 [facility] Comment on above: Performed By: #### A DIFF, CBC, CMP, ANEU, GFR, TSHR #### [address] [address] Eosinophil, Absolute 0.1 10 3/mcL Normal 0.0-0.7 [facility] Comment on above: Performed By: #### A DIFF, CBC, CMP, ANEU, GFR, TSHR #### [address] [address] Eosinophils/100 WBC (Bld) 1.0 % Normal 0.0-6.0 [facility] Comment on above: Performed By: #### A DIFF, CBC, CMP, ANEU, GFR, TSHR #### [address] [address] Lymphocyte, Absolute 1.2 10 3/mcL Normal 0.9-4.3 [facility] Comment on above: Performed By: #### A DIFF, CBC, CMP, ANEU, GFR, TSHR #### [address] [place] [address] Lymphocytes/100 WBC (Bld) 13.6 % Low 20.0-40.0 [facility] Comment on above: Performed By: #### A DIFF, CBC, CMP, ANEU, GFR, TSHR #### [place] [address] [place], [place] [address] Monocyte, Absolute 0.4 10 3/mcL Normal 0.1-1.4 [facility] Comment on above: Performed By: #### A DIFF, CBC, CMP, ANEU, GFR, TSHR #### [address] [address] Monocytes/100 WBC (Bld) 4.6 % Normal 2.0-13.0 [facility] Comment on above: Performed By: #### A DIFF, CBC, CMP, ANEU, GFR, TSHR #### [address] [address] Neutrophils/100 WBC (Bld) 80.2 % High 50.0-75.0 [facility] Comment on above: Performed By: #### A DIFF, CBC, CMP, ANEU, GFR, TSHR #### [address] [address] .GFRon 09-08-2024 Estimated Glomerular Filtration Rate 87 ml/min/1.73sqm Normal [facility] Comment on above: Result Comment: Stages of Chronic Kidney Disease (CKD) Stage Description eGFR(ml/min/1.73 sq.m.) CKD 1 Normal kidney function or >=90 normal kindney function with possible kidney damage (ex. Proteinuria) CKD 2 Kidney damage with mild loss 60-89 of kidney function CKD 3a Mild to moderate loss of kidney 45-59 function CKD 3b Moderate to severe loss of 30-44 of kindey function CKD 4 Severe loss of kidney function 15-29 CKD 5 Kidney failure <15 Note: (go live 2024) the eGFR calculation was updated to the 2020 CKD-EPI creatinine equation without a race factor to calculate the eGFR results. Performed By: #### A DIFF, CBC, CMP, ANEU, GFR, TSHR #### [address] [address] .NEUABSon 09-08-2024 Neutrophil, Absolute 7.1 10 3/mcL Normal 2.3-8.1 [facility] Comment on above: Performed By: #### A DIFF, CBC, CMP, ANEU, GFR, TSHR #### [place] [address] CBCon 09-08-2024 Erythrocyte distribution width (RBC) [Ratio] 14.5 % Normal 11.5-15.5 [facility] Comment on above: Performed By: #### A DIFF, CBC, CMP, ANEU, GFR, TSHR #### [place] [address] Hematocrit (Bld) [Volume fraction] 37.8 % Normal 34.0-46.0 [facility] Comment on above: Performed By: #### A DIFF, CBC, CMP, ANEU, GFR, TSHR #### [place] [address] Hgb 12.4 G/dL Normal 12.0-16.0 [facility] Comment on above: Performed By: #### A DIFF, CBC, CMP, ANEU, GFR, TSHR #### [place] [address] MCH (RBC) [Entitic mass] 28.4 pg Normal 27.0-33.0 [facility] Comment on above: Performed By: #### A DIFF, CBC, CMP, ANEU, GFR, TSHR #### [place] [address] MCHC 32.8 G/dL Normal 32.0-36.0 [facility] Comment on above: Performed By: #### A DIFF, CBC, CMP, ANEU, GFR, TSHR #### [place] [address] MCV (RBC) [Entitic vol] 86.5 fL Normal 80.0-99.0 [facility] Comment on above: Performed By: #### A DIFF, CBC, CMP, ANEU, GFR, TSHR #### [address] [address] Platelet 325 10 3/mcL Normal 150-450 [facility] Comment on above: Performed By: #### A DIFF, CBC, CMP, ANEU, GFR, TSHR #### [address] [address] Platelet mean volume (Bld) [Entitic vol] 8.6 fL Normal 6.6-10.5 [facility] Comment on above: Performed By: #### A DIFF, CBC, CMP, ANEU, GFR, TSHR #### [address] [address] RBC 4.37 10 6/mcL Normal 4.10-5.30 [facility] Comment on above: Performed By: #### A DIFF, CBC, CMP, ANEU, GFR, TSHR #### [address] [address] WBC 8.9 10 3/mcL Normal 4.5-10.8 [facility] Comment on above: Performed By: #### A DIFF, CBC, CMP, ANEU, GFR, TSHR #### [address] [address] CMPon 09-08-2024 Albumin Level 3.8 G/dL Normal 3.4-4.8 [facility] Comment on above: Performed By: #### A DIFF, CBC, CMP, ANEU, GFR, TSHR #### [address] [address] Albumin/Globulin [Mass ratio] 0.9 {ratio} Low 1.1-2.5 [facility] Comment on above: Performed By: #### A DIFF, CBC, CMP, ANEU, GFR, TSHR #### [address] [address] ALP [Catalytic activity/Vol] 147 U/L High 40-135 [facility] Comment on above: Performed By: #### A DIFF, CBC, CMP, ANEU, GFR, TSHR #### [address] [address] ALT [Catalytic activity/Vol] 15 U/L Normal 14-59 [facility] Comment on above: Performed By: #### A DIFF, CBC, CMP, ANEU, GFR, TSHR #### [address] [address] AST [Catalytic activity/Vol] 13 U/L Normal 10-40 [facility] Comment on above: Performed By: #### A DIFF, CBC, CMP, ANEU, GFR, TSHR #### [place] [id number] Bili Total 0.4 mg/dL Normal 0.2-1.0 [facility] Comment on above: Result Comment: Use of this assay is not recommended for patients undergoing treatment with eltrombopag due to the potential for falsely elevated results. Performed By: #### A DIFF, CBC, CMP, ANEU, GFR, TSHR #### [place] [address] BUN/Creatinine Ratio 34 ratio High 7-27 [facility] Comment on above: Performed By: #### A DIFF, CBC, CMP, ANEU, GFR, TSHR #### [place] [id number] Calcium [Mass/Vol] 8.8 mg/dL Normal 8.4-10.2 [facility] Comment on above: Performed By: #### A DIFF, CBC, CMP, ANEU, GFR, TSHR #### [address] [address] Chloride [Moles/Vol] 101 mmol/L Normal 98-107 [facility] Comment on above: Performed By: #### A DIFF, CBC, CMP, ANEU, GFR, TSHR #### [place] [address] CO2 [Moles/Vol] 30 mmol/L Normal 23-31 [facility] Comment on above: Performed By: #### A DIFF, CBC, CMP, ANEU, GFR, TSHR #### [address] [address] Creatinine [Mass/Vol] 0.74 mg/dL Normal 0.51-0.95 [facility] Comment on above: Performed By: #### A DIFF, CBC, CMP, ANEU, GFR, TSHR #### [address] [address] Electrolyte Balance 9.0 mEq/L Normal 4.0-15.0 [facility] Comment on above: Performed By: #### A DIFF, CBC, CMP, ANEU, GFR, TSHR #### [address] [address] Globulin 4.3 G/dL Normal 2.7-4.4 [facility] Comment on above: Performed By: #### A DIFF, CBC, CMP, ANEU, GFR, TSHR #### [address] [address] Glucose [Mass/Vol] 94 mg/dL Normal 83-110 [facility] Comment on above: Performed By: #### A DIFF, CBC, CMP, ANEU, GFR, TSHR #### [address] [address] Potassium [Moles/Vol] 4.4 mmol/L Normal 3.5-5.1 [facility] Comment on above: Performed By: #### A DIFF, CBC, CMP, ANEU, GFR, TSHR #### [address] [address] Sodium [Moles/Vol] 140 mmol/L Normal 136-145 [facility] Comment on above: Performed By: #### A DIFF, CBC, CMP, ANEU, GFR, TSHR #### [address] [address] Total Protein 8.1 G/dL Normal 6.4-8.2 [facility] Comment on above: Performed By: #### A DIFF, CBC, CMP, ANEU, GFR, TSHR #### [address] [address] Urea nitrogen [Mass/Vol] 25 mg/dL High 7-18 [facility] Comment on above: Performed By: #### A DIFF, CBC, CMP, ANEU, GFR, TSHR #### [place] [address] [place] [address] LABORATORYOrdered By: SYSTEM SYSTEM on 09-08-2024 Albumin BCP dye [Mass/Vol] 3.8 G/dL Normal 3.4 - 4.8 G/dL AO ADM SS Albumin/Globulin [Mass ratio] 0.9 {ratio} Low 1.1 - 2.5 ratio AO ADM SS ALP [Catalytic activity/Vol] 147 U/L High 40 - 135 U/L AO ADM SS ALT With P-5'-P [Catalytic activity/Vol] 15 U/L Normal 14 - 59 U/L AO ADM SS AST With P-5'-P [Catalytic activity/Vol] 13 U/L Normal 10 - 40 U/L AO ADM SS Basophils (Bld) [#/Vol] 0.1 103/mcL Normal 0.0 - 0.3 10^3/mcL AO Workflow SS Basophils/100 WBC (Bld) 0.6 % Normal 0.0 - 2.5 % AO Workflow SS Bilirubin [Mass/Vol] 0.4 mg/dL Normal 0.2 - 1 .0 mg/dL AO ADM SS Comment on above: Interpretive Data: U se of this assay is not recommended for patients undergoing treatment with eltrombopag due to the potential for falsely elevated results. Calcium [Mass/Vol] 8.8 mg/dL Normal 8.4 - 10. 2 mg/dL AO ADM SS Chloride [Moles/Vol] 101 mmol/L Normal 98 - 10 7 mmol/L AO ADM SS CO2 [Moles/Vol] 30 mmol/L Normal 23 - 31 mmol/L AO ADM SS Creatinine [Mass/Vol] 0.74 mg/dL Normal 0.51 - 0.95 mg/dL AO ADM SS Electrolyte Balance 9.0 mEq/L Normal 4.0 - 15 .0 mEq/L AO ADM SS Eosinophil, Absolute 0.1 103/mcL Normal 0.0 - 0 .7 10^3/mcL AO Workflow SS Eosinophils/100 WBC (Bld) 1.0 % Normal 0.0 - 6.0 % AO Workflow SS Erythrocyte distribution width (RBC) [Ratio] 14.5 % Normal 11.5 - 15.5 % AO Workflow SS Estimated Glomerular Filtration Rate 87 ml/min/1.73sqm Invalid Interpretation Code AO Chemistry S Comment on above: Interpretive Data: Stages of Chronic Kidney Disease (CKD) Stage Description eGFR(ml/min/1.73 sq.m.) CKD 1 Normal kidney function or >=90 normal kindney function with possible kidney damage (ex. Proteinuria) CKD 2 Kidney damage with mild loss 60-89 of kidney function CKD 3a Mild to moderate loss of kidney 45-59 function CKD 3b Moderate to severe loss of 30-44 of kindey function CKD 4 Severe loss of kidney function 15-29 CKD 5 Kidney failure <15 Note: (go live 2024) the eGFR calculation was updated to the 2020 CKD-EPI creatinine equation without a race factor to calculate the eGFR results. Globulin 4.3 G/dL Normal 2.7 - 4.4 G/dL AO ADM SS Glucose [Mass/Vol] 94 mg/dL Normal 83 - 110 mg/dL AO ADM SS Hematocrit (Bld) [Volume fraction] 37.8 % Normal 34.0 - 46.0 % AO Workflow SS Hemoglobin (Bld) [Mass/Vol] 12.4 G/dL Normal 12.0 - 16.0 G/dL AO Workflow SS Lymphocytes (Bld) [#/Vol] 1.2 103/mcL Normal 0.9 - 4.3 10^3/mcL AO Workflow SS Lymphocytes/100 WBC (Bld) 13.6 % Low 20.0 - 40.0 % AO Workflow SS MCH (RBC) [Entitic mass] 28.4 pg Normal 27. 0 - 33.0 pg AO Workflow SS MCHC 32.8 G/dL Normal 32.0 - 36.0 G/dL AO Workflow SS MCV (RBC) [Entitic vol] 86.5 fL Normal 80.0 - 99.0 fL AO Workflow SS Monocytes (Bld) [#/Vol] 0.4 103/mcL Normal 0.1 - 1.4 10^3/mcL AO Workflow SS Monocytes/100 WBC (Bld) 4.6 % Normal 2.0 - 13.0 % AO Workflow SS Neutrophils (Bld) [#/Vol] 7.1 103/mcL Normal 2.3 - 8.1 10^3/mcL AO Workflow SS Neutrophils/100 WBC (Bld) 80.2 % High 50.0 - 75.0 % AO Workflow SS Platelet mean volume (Bld) [Entitic vol] 8.6 fL Normal 6.6 - 10.5 fL AO Workflow SS Platelets (Bld) [#/Vol] 325 103/mcL Normal 150 - 450 10^3/mcL AO Workflow SS Potassium [Moles/Vol] 4.4 mmol/L Normal 3.5 - 5.1 mmol/L AO ADM SS Protein [Mass/Vol] 8.1 G/dL Normal 6.4 - 8.2 G/dL AO ADM SS RBC (Bld) [#/Vol] 4.37 106/mcL Normal 4.10 - 5.3 0 10^6/mcL AO Workflow SS Sodium [Moles/Vol] 140 mmol/L Normal 136 - 145 mmol/L AO ADM SS TSH Qn 3.50 m[IU]/L Normal 0.36 - 3.74 mcIU/mL AO ADM SS Urea nitrogen [Mass/Vol] 25 mg/dL High 7 - 18 mg/dL AO ADM SS Urea nitrogen/Creatinine [Mass ratio] 34 ratio High 7 - 27 ratio AO ADM SS WBC (Bld) [#/Vol] 8.9 103/mcL Normal 4.5 - 10.8 10^3/mcL AO Workflow SS TSHRon 09-08-2024 TSH Qn 3.50 m[IU]/L Normal 0.36-3.74 [facility] Comment on above: Performed By: #### A DIFF, CBC, CMP, ANEU, GFR, TSHR #### [facility] [address] [place], [place] [address] MR/PAT.Chel 09-01-2024 MR/PAT.[facility] Medical Records Department [address] [place] [address] PAT - Anesthesia 09/01/24 1626 MR#: [id number] Acct: [id number] Name: DONALDO ZHAO Francie Rep #: [id number] : 1955 69 From: Topher Mccormick MD PCP: Dr. 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 When Was Last Pacemaker Check QUESTION #4 FULL TEXT: You/Your Family Experience fever (hyperthermia) with Anesthesia Last Oral Intake Last Oral intake: Last Oral Intake NPO since Meds taken in AM with sips of water? Meds patient instructed to take am of surgery PONV PONV - decorating machine operator: PONV - decorating machine operator Female Yes 09/01/24 15:37 HX of Motion Sickness Yes 09/01/24 15:37 HX of N/V After Surgery No 09/01/24 15:37 Non-Smoker No 09/01/24 15:37 Duration of Surgery greater Yes 09/01/24 15:37 than 60 minutes Number of Risk Factors 3 09/01/24 15:37 PONV Score Moderate Risk 09/01/24 15:37 Height Weight Height Weight: Anesthesia: Height Weight Height 5 ft 5.5 in 05/01/24 08:08 Respiratory Assessment Respiratory Assessment - decorating machine operator: Respiratory Tract Infection Hx - decorating machine operator Hx Respiratory Tract Infection No 09/01/24 15:37 STOP Sleep Apnea STOP Sleep Apnea - decorating machine operator: STOP Sleep Apnea - decorating machine operator Hx Hypertension Yes 09/01/24 15:37 Hx Sleep Apnea No 09/01/24 15:37 CPAP No 04/18/21 14:55 BIPAP No 04/18/21 14:55 Do you snore loudly (louder No 09/01/24 15:37 than talking or can be heard Do you often feel tired/ No 09/01/24 15:37 fatigued/ sleepy during daytime? Has anyone observed you stop No 09/01/24 15:37 breathing during sleep? STOP Results Negative 09/01/24 15:37 QUESTION #5 FULL TEXT : Do you snore loudly (louder than talking or can be heard through closed doors)? 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 Specify any problems Hx of Preganancy in last 3 No 09/01/24 15:37 Months Nurse Filling Out Transfusion JZOLLINGE 09/01/24 15:37 Questions: Date: 09/01/24 09/01/24 15:37 Time: 15:39 09/01/24 15:37 Patient unable to answer at this time (ie. confused, unrespo /Reproduction History /Reproductive History - decorating machine operator: /Reproductive Hx- decorating machine operator Hx Now No 09/01/24 15:37 Gestational Age (in weeks): EDC: Hx Hx Para Hx Section SAB No 09/01/24 15:37 PFSH Medical History (Updated 09/01/24 @ 15:35 by Joahna Miller) Hx of uterine prolapse Wears glasses Loose, teeth Marijuana use Thyroid disease History of hiatal hernia History of diverticulitis Former smoker Emphysema, unspecified Anxiety and depression Nonobstructive atherosclerosis of coronary artery Elevated troponin GERD (gastroesophageal reflux disease) Hypertension COPD (chronic obstructive pulmonary disease) Hypothyroidism Anal squamous cell carcinoma Rheumatoid arthritis Home Medications ???Medication ???Instructions ???Recorded ???Last Taken ???Type hydrocodone-acetaminop hen 5-325mg 1 tab PO Q6H PRN PRN Pain 6 07/01/15 History 5mg-325mg naproxen sodium 220 mg tablet 440 mg PO DAILY Pain 07/08/1501/05 21:00 History (Aleve (more content not included)... Normal [facility] 6 Minute Walk Teston 025 6 Minute Walk Test y [facility] Pulmonary Services/Neurology [address] [place] [address] MR#: [id number] Acct: [id number] Name: DONALDO ZHAO Rep #: [id number] : 1955 69 From: Flaco Tse DO Referring Dr: Glendy Ugarte LETTER SORTING MACHINE OPERATOR LETTER SORTING MACHINE OPERATOR-C Status: REG CLI Location: PSN Date: Sex: F C PSN 6 Minute Walk Test 6 Minute Walk Test 6 Minute Walk Test: 6 Minute Walk Test PSN:6-Minute Walk Test Start: 08/21/24 14:00 Freq: Status: Active Protocol: [id number] Document 08/21/24 13:45 AEH (Rec: 08/21/24 14:10 AEH [id number]) 6 Minute Walk Test Date Performed 08/21/24 Time Performed 13:45 Height 5 ft 6 in Weight: 209 lb Weight in Pounds 209.[address]: Porter Assistive device Cane used: Pre-test Oxygen Delivery Room Air Method Pulse Ox (%) 95 Pulse Rate (60-100 71 beats/min) Dyspnea Radha Scale ( 0 0-10) Exertion Radha Scale 6 (6-20) 1st minute Oxygen Delivery Room Air Method Pulse Ox (%) 90 Pulse Rate (60-100 95 beats/min) 2nd minute Oxygen Delivery Room Air Method Pulse Ox (%) 88 Pulse Rate (60-100 92 beats/min) 3rd minute Oxygen Flow Rate (L/ 1 min) (L/min) Oxygen Delivery Nasal Cannula Method Pulse Ox (%) 92 Pulse Rate (60-100 94 beats/min) 4th minute Oxygen Flow Rate (L/ 1 min) (L/min) Oxygen Delivery Nasal Cannula Method Pulse Ox (%) 92 Pulse Rate (60-100 100 beats/min) 5th minute Oxygen Flow Rate (L/ 1 min) (L/min) Oxygen Delivery Nasal Cannula Method Pulse Ox (%) 90 Pulse Rate (60-100 103 H beats/min) 6th minute Oxygen Flow Rate (L/ 1 min) (L/min) Oxygen Delivery Nasal Cannula Method Pulse Ox (%) 91 Pulse Rate (60-100 100 beats/min) Dyspnea Radha Scale ( 1 0-10) Exertion Radha Scale 13 (6-20) Post-test Oxygen Flow Rate (L/ 1 min) (L/min) Oxygen Delivery Nasal Cannula Method Pulse Ox (%) 94 Pulse Rate (60-100 79 beats/min) Full Laps Walked 3 Partial Lap, Number 0 of Tiles Walked Total Distance 177 Walked (ft) 08/21/24 14:05 Cardiopulmonary Services by Ginny Cintron Pt arrived on 2 lpm pulse dose oxygen. Pt was placed on room air. Walk was started with pt on room air. Three minutes into walk pt was placed on 1 lpm pulse dose. Pt was able to finish walk on 1 lpm pulse dose. Pt did state she will wear her oxygen at 1-2 lpm pulse dose if she is up and walking around. Initialized on 08/21/24 14:05 - END OF NOTE Interpretation Interpretation: The patient ambulated 177 feet over the course of 6 minutes beginning on room air with the use of a cane. Pretesting oxygen saturation was noted to be 95% on room air. With ambulation, the patient desaturated to 88%, requiring 1 L/min of pulsed dose supplemental oxygen to maintain appropriate saturations. Recommendations Recommendations: 1 L/min of pulsed dose supplemental oxygen should be utilized with exertion. 08/22/24 1249 Date Flaco Tse DO CC: Date Dictated: 08/22/24 1248 Date Transcribed: 08/22/241247 Fire Safety Manager: Dr. Flaco Tse DO Signed Normal [facility] LABORATORYOrdered By: SYSTEM SYSTEM on 07-04-2024 TSH Qn 2.96 m[IU]/L Normal 0.36 - 3.74 mcIU/mL AO ADM SS TSHRon 07-04-2024 TSH Qn 2.96 m[IU]/L Normal 0.36-3.74 [facility] Comment on above: Performed By: #### T [facility] #### [address] [address] Pulmonary Visit Reporton Pulmonary Visit Report [facility] [place] 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 Normal [facility] Low Dose CT Lung Screeningon 04-25-[address] Lung Screening [facility] Imaging Services [address] [place] [id number] Lung Screening MR#: [id number] Acct: [id number] Name: DONALDO ZHAO Rep #: [id number] : 1955 F 69 From: Cash saldaña MD PCP: Dr. Blade Bond, DO Status: [facility] Study: Low Dose CT Lung Screening Date of Exam: 04/25 Exam# [id number] Ordering Dr: Glendy Ugarte LETTER SORTING MACHINE OPERATOR LETTER SORTING MACHINE OPERATOR-C PROCEDURE: LOW DOSE CT LUNG SCREENING [...] use of iterative reconstruction technique). REFERENCE LINK: [place] Lung-RADS RADIATION DOSE SUMMARY: CTDlvol: 4.02 mGy [...] LDCT. Other Significant Findings: None. Reading Location: [place] [address] CC: JOHN Ugarte; Dr. Blade Bond DO Fire Safety Manager: Signed Normal [facility] 04-21-2024 U Ratio Alb/Cre 14 mg/G Normal 0-30 [facility] Comment on above: Result Comment: The units for the MALB test were changed, but the MALB ratio calculation was not initially adjusted to reflex this. The corrected ratio has now been recalculated using the appropriate conversion factor. BP Performed By: #### A DIFF, CBC, CMP, ANEU, GFR, TSHR #### [place] [address] [place], [place] [address] [facility] 04-03-2024 U Creatinine 28.0 mg/dL Normal [facility] Comment on above: Performed By: #### A DIFF, CBC, CMP, ANEU, GFR, TSHR #### [place] [address] [place], [place] [address] U Microalb 3.9 mg/L Normal [facility] Comment on above: Performed By: #### A DIFF, CBC, CMP, ANEU, GFR, TSHR #### [place] [address] [place], [place] [address] LABORATORYOrdered By: Onofre Jung on 04-02-2024 Albumin DL <= 20 mg/L (U) [Mass/Vol] 3.9 mg/L Invalid Interpretation Code AO ADM SS Albumin/Creatinine DL <= 20 mg/L (U) [Mass ratio] 0 mcg/mg Normal 0 - 30 mcg/mg AO Chemistry S Creatinine (U) [Mass/Vol] 28.0 mg/dL Invalid Interpretation Code AO ADM SS FT4on 03-08-2024 Free T4 [Mass/Vol] 1.09 ng/dL Normal 0.76-1.46 [facility] Comment on above: Order Comment: Order ed by Discern Performed By: #### A DIFF, CBC, CMP, ANEU, GFR, TSHR #### [address] [address] .GFRon 03-07-2024 GFR 80 ml/min/1.73sqm [facility] Comment on above: Result Comment: GFR Population [...] 15 mL/min/1.73 square meters Performed By: #### A DIFF, CBC, CMP, ANEU, GFR, TSHR #### [address] [address] GFR Non- 66 ml/min/1.73sqm Normal [facility] Comment on above: Result Comment: GFR Population [...] 15 mL/min/1.73 square meters Performed By: #### A DIFF, CBC, CMP, ANEU, GFR, TSHR #### [address] [address] BMPon 03-07-2024 BUN/Creatinine Ratio 22 ratio Normal 7-27 [facility] Comment on above: Performed By: #### A DIFF, CBC, CMP, ANEU, GFR, TSHR #### [address] [address] Calcium [Mass/Vol] 9.6 mg/dL Normal 8.4-10.2 [facility] Comment on above: Performed By: #### A DIFF, CBC, CMP, ANEU, GFR, TSHR #### [address] [address] Chloride [Moles/Vol] 100 mmol/L Normal 98-107 [facility] Comment on above: Performed By: #### A DIFF, CBC, CMP, ANEU, GFR, TSHR #### [place] [address] CO2 [Moles/Vol] 26 mmol/L Normal 23-31 [facility] Comment on above: Performed By: #### A DIFF, CBC, CMP, ANEU, GFR, TSHR #### [address] [address] Creatinine [Mass/Vol] 0.85 mg/dL Normal 0.55-1.02 [facility] Comment on above: Result Comment: Test ing performed on Siemens Dimension EXL analyzer using a modified kinetic Shyla technique. Performed By: #### A DIFF, CBC, CMP, ANEU, GFR, TSHR #### [address] [address] Electrolyte Balance 8.0 mEq/L Normal 4.0-15.0 [facility] Comment on above: Performed By: #### A DIFF, CBC, CMP, ANEU, GFR, TSHR #### [address] [address] Glucose [Mass/Vol] 88 mg/dL Normal 83-110 [facility] Comment on above: Performed By: #### A DIFF, CBC, CMP, ANEU, GFR, TSHR #### [address] [address] Potassium [Moles/Vol] 4.1 mmol/L Normal 3.5-5.1 [facility] Comment on above: Performed By: #### A DIFF, CBC, CMP, ANEU, GFR, TSHR #### [place] [address] Sodium [Moles/Vol] 134 mmol/L Low 136-145 [facility] Comment on above: Performed By: #### A DIFF, CBC, CMP, ANEU, GFR, TSHR #### [place] [address] Urea nitrogen [Mass/Vol] 19 mg/dL High 7-18 [facility] Comment on above: Performed By: #### A DIFF, CBC, CMP, ANEU, GFR, TSHR #### [place] [address]87 CAIONon 03-07-2024 Calcium Ionized 1.12 mmol/L Normal 1.12-1.32 [facility] Comment on above: Performed By: #### A DIFF, CBC, CMP, ANEU, GFR, TSHR #### [place] [address] LABORATORYOrdered By: SYSTEM SYSTEM on 03-07-2024 Calcium [...] 03-07-2024 Phosphate [Mass/Vol] 2.7 mg/dL Normal 2.3-4.1 [facility] Comment on above: Performed By: #### A DIFF, CBC, CMP, ANEU, GFR, TSHR #### [place] [address] [place], [place] [address] TSHRon 03-07-2024 TSH Qn 3.84 m[IU]/L High 0.36-3.74 [facility] Comment on above: Performed By: #### A DIFF, CBC, CMP, ANEU, GFR, TSHR #### [place] [address] [place], [place] [address] Pulmonary Visit Reporton Pulmonary Visit Report [facility] of [address] [place] [address] OFFICE VISIT Date of Service: 11/29/23 MR#: [id number] Acct: [id number] Name: DONALDO ZHAO Francie Rep #: [id number] : 1955 Provider: JOHN Ugarte Age/Sex: 68/F Location: [facility].PMW Status: Signed Assessment and Plan Assessment and [...] pulmonary nodule Plan Details Follow Up: 04/05/24 ([facility]) HPI 6 M FU Chief Complaint: [...] Accompanied by: Self Allergies cefadroxil hydrate (From [facility]) Allergy (Verified 11/29/23 14:17) Itching Medications ???Medication [...] (Reviewed 11/29/23 @ 14:26 by Glendy Ugarte LETTER SORTING MACHINE OPERATOR, LETTER SORTING MACHINE OPERATOR-C) Anxiety and depression Nonobstructive atherosclerosis of coronary artery Elevated troponin GERD (gastroesophag (more content not included)... Normal [facility] .GFRon 11-16-2023 GFR 97 ml/min/1.73sqm Normal [facility] Comment on above: Result Comment: GFR Population [...] Performed By: #### B MP, GFR #### [address] [address] GFR Non- 80 ml/min/1.73sqm [facility] Comment on above: Result Comment: GFR Population [...] Performed By: #### B MP, GFR #### [place] [address] [place], [place] [address] BMPon 11-16-2023 BUN/Creatinine Ratio 29 ratio High 7-27 [facility] Comment on above: Performed By: #### B MP, GFR #### [address] [address] Calcium [Mass/Vol] 8.2 mg/dL Low 8.4-10.2 [facility] Comment on above: Performed By: #### B MP, GFR #### [address] [address] Chloride [Moles/Vol] 101 mmol/L Normal 98-107 [facility] Comment on above: Performed By: #### B MP, GFR #### [address] [address] CO2 [Moles/Vol] 28 mmol/L Normal 23-31 [facility] Comment on above: Performed By: #### B MP, GFR #### [address] [address] Creatinine [Mass/Vol] 0.72 mg/dL Normal 0.55-1.02 [facility] Comment on above: Result Comment: Test ing performed on Siemens Dimension EXL analyzer using a modified kinetic Shyla technique. Performed By: #### B MP, GFR #### [address] [address] Electrolyte Balance 10.0 mEq/L Normal 4.0-15.0 [facility] Comment on above: Performed By: #### B MP, GFR #### [address] [address] Glucose [Mass/Vol] 89 mg/dL Normal 80-115 [facility] Comment on above: Performed By: #### B MP, GFR #### [address] [address] Potassium [Moles/Vol] 4.1 mmol/L Normal 3.5-5.1 [facility] Comment on above: Performed By: #### B MP, GFR #### [address] [address] Sodium [Moles/Vol] 139 mmol/L Normal 136-145 [facility] Comment on above: Performed By: #### B MP, GFR #### [address] [address] Urea nitrogen [Mass/Vol] 21 mg/dL High -18 [facility] Comment on above: Performed By: #### B MP, GFR #### [place] [address] [place], [place] [address] FT4on 11-16-2023 Free T4 [Mass/Vol] 1.00 ng/dL Normal 0.76-1.46 [facility] Comment on above: Performed By: #### A DIFF, CBC, CMP, ANEU, GFR, TSHR #### [place] [address] [place], [place] [address] LABORATORYOrdered By: SYSTEM SYSTEM on 11-16-2023 Calcium [...] 11-16-2023 Phosphate [Mass/Vol] 2.2 mg/dL Low 2.3-4.1 [facility] Comment on above: Performed By: #### F T4, PHOS, TSH #### [place] [address] [place], [place] [address] TSHon 11-16-2023 TSH Qn 3.28 m[IU]/L Normal 0.36-3.74 [facility] Comment on above: Performed By: #### A DIFF, CBC, CMP, ANEU, GFR, TSHR #### [place] [address] [place], [place] [address] CT THORAX W/O CONTRASTon CT THORAX W/O [...] 08/29/2023 9:47:09 AM Ordering Provider: BLADE Piper [facility] ([place]) MA MAMMOGRAM SCREENING BILAT ERAL W/TOMOon 08-28-2023 MA MAMMOGRAM SCREENING BILATERAL W/RONEN ORIGINAL FROM: [facility] [address] [place], [place] [address] PROCEDURE FOR: DONALDO ZHAO [address] [place] [address] Home: PID#: [id number] Exam#: [id number] : 1955 Age: 68 TO: BLADE BOND D.O. [address] [place] [address] Fax: NO FAX EXAMINATION: SCREENING DIGITAL BILATERAL [...] addition to annual mammographic screening per the [employer]. BIRADS: MAMMOGRAM BI-RADS: 1: Negative RECALL: 1 year screening RECALL TYPE: mammo LETTER SENT: Normal BI-RADS 1 and 2 Interpreted by: Keren Flores Preliminary Report By: Keren Flores Electronically signed By Keren Flores Dictated Date: 08/28/2023 8:12:32 AM Prelim Date: 08/28/2023 8:14:51 AM Sign Date: 08/28/2023 8:14:51 AM Ordering Provider: BLADE BOND Drilling Foreman: ARMIDA RAYMOND RT(R) RDMS letter sent: Normal BI-RADS 1 and 2 Mammogram BI-RADS: 1 Negative Normal [facility] ([place]) .Auto Diffon 08-27-2023 Basophil, Absolute 0.0 10 3/mcL Normal 0.0-0.2 [facility] ([place]) Comment on above: Performed By: #### T SH, MG, LIPID, A1C, VIDH, GFR, ADIFF, CBC, ANEU, FT4, CMP #### [address] [address] Basophils/100 WBC (Bld) 0.4 % Normal 0.0-2.5 [facility] ([place]) Comment on above: Performed By: #### T SH, MG, LIPID, A1C, VIDH, GFR, ADIFF, CBC, ANEU, FT4, CMP #### [address] [address] Eosinophil, Absolute 0.1 10 3/mcL Normal 0.0-0.4 [facility] ([place]) Comment on above: Performed By: #### T SH, MG, LIPID, A1C, VIDH, GFR, ADIFF, CBC, ANEU, FT4, CMP #### [address] [address] Eosinophils/100 WBC (Bld) 1.1 % Normal 0.0-7.0 [facility] ([place]) Comment on above: Performed By: #### T SH, MG, LIPID, A1C, VIDH, GFR, ADIFF, CBC, ANEU, FT4, CMP #### [address] [address] Lymphocyte, Absolute 1.2 10 3/mcL Normal 0.8-3.9 [facility] ([place]) Comment on above: Performed By: #### T SH, MG, LIPID, A1C, VIDH, GFR, ADIFF, CBC, ANEU, FT4, CMP #### [address] [address] Lymphocytes/100 WBC (Bld) 13.7 % Normal 10.0-50.0 [facility] ([place]) Comment on above: Performed By: #### T SH, MG, LIPID, A1C, VIDH, GFR, ADIFF, CBC, ANEU, FT4, CMP #### [address] [address] Monocyte, Absolute 0.4 10 3/mcL Normal 0.2-1.0 [facility] ([place]) Comment on above: Performed By: #### T SH, MG, LIPID, A1C, VIDH, GFR, ADIFF, CBC, ANEU, FT4, CMP #### [address] [address] Monocytes/100 WBC (Bld) 4.7 % Normal 1.7-13.0 [facility] ([place]) Comment on above: Performed By: #### T SH, MG, LIPID, A1C, VIDH, GFR, ADIFF, CBC, ANEU, FT4, CMP #### [address] [address] Neutrophils/100 WBC (Bld) 80.1 % High 37.0-80.0 [facility] ([place]) Comment on above: Performed By: #### T SH, MG, LIPID, A1C, VIDH, GFR, ADIFF, CBC, ANEU, FT4, CMP #### [address] [address] .GFRon 08-27-2023 GFR 85 ml/min/1.73sqm Normal [facility] ([place]) Comment on above: Result Comment: GFR Population [...] ADIFF, CBC, ANEU, FT4, CMP ####[address] [place], [place] [address] GFR Non- 70 ml/min/1.73sqm Normal [facility] ([place]) Comment on above: Result Comment: GFR Population [...] GFR, ADIFF, CBC, ANEU, FT4, CMP ####[address] [place], [place] [address] .NEUABSon 08-27-2023 Neutrophil, Absolute 7.2 10 3/mcL High 2.9-6.2 [facility] ([place]) Comment on above: Performed By: #### T SH, MG, LIPID, A1C, VIDH, GFR, ADIFF, CBC, ANEU, FT4, CMP ####[facility] [place], [place] [address] A1Con 08-27-2023 HbA1c (Bld) [Mass fraction] 5.5 % Normal 4.3-6.4 [facility] ([place]) Comment on above: Performed By: #### T SH, MG, LIPID, A1C, VIDH, GFR, ADIFF, CBC, ANEU, FT4, CMP ####[address] [place], [place] [address] BD BONE DENSITY DEXA AXIAL S KELETON 08-27-2023 BD BONE DENSITY DEXA AXIAL SKELETON [...] 08/27/2023 4:18:37 PM Ordering Provider: BLADE Piper [facility] ([place]) CBCon 08-27-2023 Erythrocyte distribution width (RBC) [Ratio] 15.5 % High 11.5-14.5 [facility] ([place]) Comment on above: Performed By: #### T SH, MG, LIPID, A1C, VIDH, GFR, ADIFF, CBC, ANEU, FT4, CMP #### [address] [address] Hematocrit (Bld) [Volume fraction] 36.9 % Low 37.0-47.0 [facility] ([place]) Comment on above: Performed By: #### T SH, MG, LIPID, A1C, VIDH, GFR, ADIFF, CBC, ANEU, FT4, CMP #### [place] [address] Hgb 12.1 G/dL Normal 12.0-16.0 [facility] ([place]) Comment on above: Performed By: #### T SH, MG, LIPID, A1C, VIDH, GFR, ADIFF, CBC, ANEU, FT4, CMP #### [address] [address] MCH (RBC) [Entitic mass] 27.7 pg Normal 27.0-31.2 [facility]) Comment on above: Performed By: #### T SH, MG, LIPID, A1C, VIDH, GFR, ADIFF, CBC, ANEU, FT4, CMP #### [address] [address] MCHC 32.7 G/dL Low 33.0-37.0 [facility]) Comment on above: Performed By: #### T SH, MG, LIPID, A1C, VIDH, GFR, ADIFF, CBC, ANEU, FT4, CMP #### [address] [address] MCV (RBC) [Entitic vol] 84.6 fL Normal 80.0-94.0 [facility] ([place]) Comment on above: Performed By: #### T SH, MG, LIPID, A1C, VIDH, GFR, ADIFF, CBC, ANEU, FT4, CMP #### [address] [address] Platelet 350 10 3/mcL Normal 130-400 [facility] ([place]) Comment on above: Performed By: #### T SH, MG, LIPID, A1C, VIDH, GFR, ADIFF, CBC, ANEU, FT4, CMP #### [address] [address] Platelet mean volume (Bld) [Entitic vol] 7.9 fL Normal 7.4-10.4 [facility] ([place]) Comment on above: Performed By: #### T SH, MG, LIPID, A1C, VIDH, GFR, ADIFF, CBC, ANEU, FT4, CMP #### [address] [address] RBC 4.36 10 6/mcL Normal 4.20-5.40 [facility] ([place]) Comment on above: Performed By: #### T SH, MG, LIPID, A1C, VIDH, GFR, ADIFF, CBC, ANEU, FT4, CMP #### [address] [address] WBC 8.9 10 3/mcL Normal 4.6-10.8 [facility] ([place]) Comment on above: Performed By: #### T SH, MG, LIPID, A1C, VIDH, GFR, ADIFF, CBC, ANEU, FT4, CMP #### [address] [address] CMPon 08-27-2023 Albumin Level 3.6 G/dL Normal 3.4-4.8 [facility] ([place]) Comment on above: Performed By: #### T SH, MG, LIPID, A1C, VIDH, GFR, ADIFF, CBC, ANEU, FT4, CMP ####[address] [place], [place] [address] Albumin/Globulin [Mass ratio] 0.9 {ratio} Low 1.1-2.5 [facility] ([place]) Comment on above: Performed By: #### T SH, MG, LIPID, A1C, VIDH, GFR, ADIFF, CBC, ANEU, FT4, CMP ####[address] [place], [place] [address] ALP [Catalytic activity/Vol] 166 U/L High 40-135 [facility] ([place]) Comment on above: Performed By: #### T SH, MG, LIPID, A1C, VIDH, GFR, ADIFF, CBC, ANEU, FT4, CMP ####[address] [place], [place] [address] ALT [Catalytic activity/Vol] 17 U/L Normal 14-59 [facility] ([place]) Comment on above: Performed By: #### T SH, MG, LIPID, A1C, VIDH, GFR, ADIFF, CBC, ANEU, FT4, CMP ####[address] [place], [place] [address] AST [Catalytic activity/Vol] 12 U/L Normal 10-40 [facility] ([place]) Comment on above: Performed By: #### T SH, MG, LIPID, A1C, VIDH, GFR, ADIFF, CBC, ANEU, FT4, CMP ####[address] [place], [place] [address] Bili Total 0.4 mg/dL Normal 0.2-1.0 [facility] ([place]) Comment on above: Result Comment: Use of this assay is not recommended for patients undergoing treatment with eltrombopag due to the potential for falsely elevated results. Performed By: #### T SH, MG, LIPID, A1C, VIDH, GFR, ADIFF, CBC, ANEU, FT4, CMP ####[address] [place], [place] [address] BUN/Creatinine Ratio 30 ratio High 7-27 [facility] ([place]) Comment on above: Performed By: #### T SH, MG, LIPID, A1C, VIDH, GFR, ADIFF, CBC, ANEU, FT4, CMP ####[address] [place], [place] [address] Calcium [Mass/Vol] 9.0 mg/dL Normal 8.4-10.2 [facility] ([place]) Comment on above: Performed By: #### T SH, MG, LIPID, A1C, VIDH, GFR, ADIFF, CBC, ANEU, FT4, CMP ####[address] [place], [place] [address] Chloride [Moles/Vol] 100 mmol/L Normal 98-107 [facility] ([place]) Comment on above: Performed By: #### T SH, MG, LIPID, A1C, VIDH, GFR, ADIFF, CBC, ANEU, FT4, CMP ####[address] [place], [place] [address] CO2 [Moles/Vol] 33 mmol/L High 23-31 [facility] ([place]) Comment on above: Performed By: #### T SH, MG, LIPID, A1C, VIDH, GFR, ADIFF, CBC, ANEU, FT4, CMP ####[address] [place], [place] [address] Creatinine [Mass/Vol] 0.81 mg/dL Normal 0.55-1.02 [facility] ([place]) Comment on above: Performed By: #### T SH, MG, LIPID, A1C, VIDH, GFR, ADIFF, CBC, ANEU, FT4, CMP ####[address] [place], [place] [address] Electrolyte Balance 5.0 mEq/L Normal 4.0-15.0 [facility] ([place]) Comment on above: Performed By: #### T SH, MG, LIPID, A1C, VIDH, GFR, ADIFF, CBC, ANEU, FT4, CMP ####[address] [place], [place] [address] Globulin 3.9 G/dL Normal [facility] ([place]) Comment on above: Performed By: #### T SH, MG, LIPID, A1C, VIDH, GFR, ADIFF, CBC, ANEU, FT4, CMP ####[address] [place], [place] [address] Glucose [Mass/Vol] 102 mg/dL Normal 80-115 [facility] ([place]) Comment on above: Performed By: #### T SH, MG, LIPID, A1C, VIDH, GFR, ADIFF, CBC, ANEU, FT4, CMP ####[address] [place], [place] [address] Potassium [Moles/Vol] 4.4 mmol/L Normal 3.5-5.1 [facility] ([place]) Comment on above: Performed By: #### T SH, MG, LIPID, A1C, VIDH, GFR, ADIFF, CBC, ANEU, FT4, CMP ####[address] [place], [place] [address] Sodium [Moles/Vol] 138 mmol/L Normal 136-145 [facility] ([place]) Comment on above: Performed By: #### T SH, MG, LIPID, A1C, VIDH, GFR, ADIFF, CBC, ANEU, FT4, CMP ####[address] [place], [place] [address] Total Protein 7.5 G/dL Normal 6.4-8.2 [facility] ([place]) Comment on above: Performed By: #### T SH, MG, LIPID, A1C, VIDH, GFR, ADIFF, CBC, ANEU, FT4, CMP ####[address] [place], [place] [address] Urea nitrogen [Mass/Vol] 24 mg/dL High 7-18 [facility] ([place]) Comment on above: Performed By: #### T SH, MG, LIPID, A1C, VIDH, GFR, ADIFF, CBC, ANEU, FT4, CMP ####[address] [place], [place] [address] DLDLon 08-27-2023 Direct LDL Cholesterol 76 mg/dL Normal 0-99 [facility] ([place]) Comment on above: Result Comment: Dire ct LDL Cholesterol Reference Interval: Optimal: <100 mg/dL Near Optimal/above optimal: 100-129 mg/dL Borderline high: 130-159 mg/dL High: 160-189 mg/dL Very high: >=190 mg/dL Performed By: #### D LDL ####[address] [place], [place] [address] FT4on 08-27-2023 Free T4 [Mass/Vol] 1.21 ng/dL Normal 0.76-1.46 [facility] ([place]) Comment on above: Performed By: #### T SH, MG, LIPID, A1C, VIDH, GFR, ADIFF, CBC, ANEU, FT4, CMP ####[address] [place], [place] [address] LABORATORYOrdered By: Marcella Mcbride on 08-27-2023 Cholesterol [...] 08-27-2023 Cholesterol [Mass/Vol] 175 mg/dL Normal 0-200 [facility] ([place]) Comment on above: Result Comment: Chol esterol Reference Interval: Less than 200 Desirable 200-239 Borderline high risk 240 and above High risk Performed By: #### T SH, MG, LIPID, A1C, VIDH, GFR, ADIFF, CBC, ANEU, FT4, CMP ####[address] [place], [place] [address] Cholesterol in HDL [Mass/Vol] 75 mg/dL High 40-60 [facility] ([place]) Comment on above: Performed By: #### T SH, MG, LIPID, A1C, VIDH, GFR, ADIFF, CBC, ANEU, FT4, CMP ####[address] [place], [place] [address] Cholesterol in LDL [Mass/Vol] 82 mg/dL Normal 0-130 [facility] ([place]) Comment on above: Performed By: #### T SH, MG, LIPID, A1C, VIDH, GFR, ADIFF, CBC, ANEU, FT4, CMP ####[address] [place], [place] [address] Triglyceride [Mass/Vol] 92 mg/dL Normal 0-150 [facility] ([place]) Comment on above: Result Comment: Trig lyceride Reference Interval: Less than 150 Normal 150-199 Borderline high risk 200-499 High risk 500 or higher Very high risk Performed By: #### T SH, MG, LIPID, A1C, VIDH, GFR, ADIFF, CBC, ANEU, FT4, CMP ####[address] [place], [place] [address] MGon 08-27-2023 Magnesium [Mass/Vol] 1.9 mg/dL Normal 1.8-2.4 [facility] ([place]) Comment on above: Performed By: #### T SH, MG, LIPID, A1C, VIDH, GFR, ADIFF, CBC, ANEU, FT4, CMP ####[address] [place], [place] [address] TSHon 08-27-2023 TSH Qn 4.45 m[IU]/L High 0.36-3.74 [facility] ([place]) Comment on above: Performed By: #### T SH, MG, LIPID, A1C, VIDH, GFR, ADIFF, CBC, ANEU, FT4, CMP ####[address] [place], [place] [address] VIDHon 08-27-2023 Vit. D 25-Hydroxy 34.0 ng/mL Normal [facility] ([place]) Comment on above: Result Comment: Inte rpretive Values Based on Total 25(OH) Vitamin D: Deficient <20 ng/mL Insufficient 20 - <30 ng/mL Sufficient 30-100 ng/mL Performed By: #### T SH, MG, LIPID, A1C, VIDH, GFR, ADIFF, CBC, ANEU, FT4, CMP ####[address] [place], [place] [address] Absolute lymphocyte countOrd ered By: Danilo Rubio on 06-18-2023 Lymphocytes Auto (Unsp spec) [#/Vol] 0.97 10*3/uL 0.83-4.51 [facility] Automated lymphocyte count a s percentage of total leukocytesOrdered By: Danilo Rubio on 06-18-2023 Lymphocytes/100 WBC Auto (Unsp spec) 9.4 % 19-41 [facility] Basophil percentageOrdered B y: Danilo Rubio on 06-18-2023 Basophil percentage 0 SEEN /hpf 0-5 [facility] Basophils/100 WBC (Bld) 0.4 % 0-1 [facility] Chloride [Moles/Vol] 101 mmol/L 98-107 [facility] Eosinophils/100 WBC (Bld) 1.1 % 0-5 [facility] Glucose [Mass/Vol] 125 mg/dL 74-106 [facility] Comment on above: Fasting Glucose resu lt from 100 to 125 mg/dL suggests IMPAIRED HOMEOSTASIS per A.D.A. criteria. Hemoglobin (Bld) [Mass/Vol] 11.5 g/dL 12.0-15.0 [facility] Monocytes/100 WBC (Bld) 4.8 % 0-10 [facility] Neutrophils (Bld) [#/Vol] 8.5 10*3/uL 2.0-7.7 [facility] Neutrophils/100 WBC (Bld) 82.9 % 47-70 [facility] Potassium [Moles/Vol] 4.3 mmol/L 3.5-5.1 [facility] Comment on above: Moderate Hemolysis, Result may be falsely increased. Sodium [Moles/Vol] 135 mmol/L 136-145 [facility] WBC (Bld) [#/Vol] 10.3 10*3/uL 4.4-11.0 [facility] [place] Bilirubin Test strip Ql (U)O rdered By: Danilo Rubio on 06-18-2023 Bilirubin Ql (U) Negative Negative [facility] Blood manual differential co mment interpretation (narrative result)Ordered By: Danilo Rubio on 06-18-2023 Manual differential comment Anthony (Bld) [Interp] See comment [facility] Comment on above: Please note: For thi [...] 06-18-2023 Platelets LM Ql (Bld) ADEQUATE ADEQ [facility] Determination of erythrocyte mean corpuscular volume (MCV)Ordered By: Danilo Rubio on 06-18-2023 MCV (RBC) [Entitic vol] 85.6 fL 81-99 [facility] Erythrocyte distribution wid th ratioOrdered By: Danilo Rubio on 06-18-2023 Erythrocyte distribution width (RBC) [Ratio] 14.0 % 11.6-14.6 [facility] Erythrocyte distribution wid th standard deviationOrdered By: Danilo Rubio on 06-18-2023 Erythrocyte distribution width (RBC) [Entitic vol] 43.8 fL 35.1-43.9 [facility] Hematocrit Auto (Bld) [Volum e fraction]Ordered By: Danilo Rubio on 06-18-2023 Hematocrit (Bld) [Volume fraction] 37.4 % 37-47 [facility] Immature granulocytes/100 WB C Auto (Bld)Ordered By: Danilo Rubio on 06-18-2023 Immature granulocytes/100 WBC (Bld) 1.400 % 0.0-0.9 [facility] Comment on above: IG% - Immature Granu locytes (promyelocytes, myelocytes and metamyelocytes) > 1% indicates that a LEFT SHIFT is Present. Ketones Test strip Ql (U)Ord ered By: Danilo Rubio on 06-18-2023 Ketones Ql (U) 5 mg/dl Negative [facility] Laboratory - Chemistry and C hemistry - challengeOrdered By: Danilo Rubio on 06-18-2023 CO2 [Moles/Vol] 30.0 mmol/L 21.0-32.0 [facility] Urea nitrogen/Creatinine [Mass ratio] 18.0 mg/mg 10-20 [facility] Laboratory - Hematology and Cell countsOrdered By: Danilo Rubio on 06-18-2023 MCH (RBC) [Entitic mass] 26.3 pg 27.0-32.0 [facility] MCHC (RBC) [Mass/Vol] 30.7 g/dL 32- [facility] Nucleated RBC/100 WBC (Bld) [Ratio] 0 % 0-5 [facility] Platelet mean volume (Bld) [Entitic vol] 10.5 fL 6.2-12.0 [facility] - Microbiology an d Antimicrobial susceptibilityOrdered By: Danilo Rubio on 06-18-2023 SARS-CoV-2 (COVID-19) RNA LORI+probe Ql (Unsp spec) [facility] Mucus LM Ql (Urine sed)Order ed By: Danilo Rubio on 06-18-2023 Mucus Ql (Urine sed) 1+ /hpf [facility] Nitrite Test strip Ql (U)Ord ered By: Danilo Rubio on 06-18-2023 Nitrite Ql (U) Negative Negative [facility] No Panel InformationOrdered By: Danilo Rubio on 06-18-2023 Urine RBC 0-5 SEEN /hpf 0-5 [facility] Estimated GFR (MDRD) Amer 113 mL/min >60 [facility] Comment on above: GFR Calc Estimated GFR (MDRD) Non-Af Amer 93 mL/min >60 [facility] Comment on above: Non- GFR Calc Platelet Count TNP [facility] Comment on above: Test not performedPl ease note: For this sample, a platelet estimate is provided rather than a platelet count due to platelet clumping. Other parameters associated with this sample are not affected by platelet clumping. If a more accurate platelet count is required, a redraw of the patient will be necessary. Troponin I High Sensitivity 6 pg/mL 3.0-54.0 [facility] Comment on above: Please Note: New Ira[place] t Units and Gender Specific Reference Ranges. For more information see Policy Stat Procedure [place] [facility] Sensitivity Troponin (TNIH) and attachments. Protein Test strip Ql (U)Ord ered By: Danilo Rubio on 06-18-2023 Protein Ql (U) 30 mg/dl Negative [facility] RBC Auto (Bld) [#/Vol]Ordere d By: Danilo Rubio on 06-18-2023 RBC (Bld) [#/Vol] 4.37 10*6/uL 4.2-5.4 [facility] Serum or plasma calcium tia urement (mass/volume)Ordered By: Danilo Rubio on 06-18-2023 Calcium [Mass/Vol] 9.4 mg/dL 8.5-10.1 [facility] Serum or plasma creatinine m easurement (mass/volume)Ordered By: Danilo Rubio on 06-18-2023 Creatinine [Mass/Vol] 0.67 mg/dL 0.55-1.02 [facility] Comment on above: The validity of the calculated GFR & GFRAA in patients over 70 years has not been determined. Clinical correlation is essential. Serum or plasma urea nitroge n measurement (mass/volume)Ordered By: Danilo Rubio on 06-18-2023 Urea nitrogen [Mass/Vol] 12 mg/dL 7-18 [facility] Squamous epithelial cells de tection in urine sediment by light microscopyOrdered By: Danilo Rubio on 06-18-2023 Epithelial cells.squamous LM Ql (Urine sed) 0 SEEN /hpf 5-10 [facility] Thin prep Papanicolaou smear with manual screeningOrdered By: Danilo Rubio on 06-18-2023 Thin prep Papanicolaou smear with manual screening 4 5-15 [facility] Urine blood detectionOrdered By: Danilo Rubio on 06-18-2023 RBC Ql (U) 50 /ul Negative [facility] Urine clarityOrdered By: Nayeli Rubio on 06-18-2023 Clarity (U) Clear Clear [facility] Urine color determinationOrd ered By: Danilo Rubio on 06-18-2023 Color (U) Yellow Yellow [facility] Urine glucose detectionOrder ed By: Danilo Rubio on 06-18-2023 Glucose Ql (U) Normal mg/dl Normal [facility] Urine leukocyte esterase det ection by dipstickOrdered By: Danilo Rubio on 06-18-2023 Leukocyte esterase Test strip Ql (U) 25 /ul Negative [facility] Urine pHOrdered By: Danilo blake on 06-18-2023 pH (U) 6.0 [pH] 5.0 - 8.0 [facility] Urine sediment bacteria coun t by microscopy (number/high power field)Ordered By: Danilo Rubio on 06-18-2023 Bacteria LM.HPF (Urine sed) [#/Area] 0 /[HPF] None Seen [facility] Urine specific gravity measu rementOrdered By: Danilo Rubio on 06-18-2023 Specific gravity (U) [Rel density] 1.015 1.002-1.030 [facility] Urine urobilinogen measureme ntOrdered By: Danilo Rubio on 06-18-2023 Urobilinogen Ql (U) 4 mg/dl Normal [facility] CT THORAX W/ CONTRASTon 03-09 CT THORAX [...] 04/02/2023 11:15:57 AM Ordering Provider: BLADE BOND [facility] ([place]) .GFRon 03-29-2023 GFR 80 ml/min/1.73sqm Normal [facility] ([place]) Comment on above: Result Comment: GFR Population [...] By: #### G , CRE #### Clay [place] [id number] GFR Non- 66 ml/min/1.73sqm Normal [facility] ([place]) Comment on above: Result Comment: GFR Population [...] By: #### G , CRE #### Clay [address] [address] CREon 03-29-2023 Creatinine [Mass/Vol] 0.85 mg/dL Normal 0.55-1.02 [facility] ([place]) Comment on above: Performed By: #### Shelby FR, CRE #### [address] [address] MALBRon 03-29-2023 U Creatinine 122.9 mg/dL High 28.0-117.0 [facility] ([place]) Comment on above: Performed By: #### M ALBR ####[address] [place], [place] [address] U Microalb 1332 mcg/dL Normal [facility] ([place]) Comment on above: Performed By: #### M ALBR ####[address] [place], [place] [address] U Ratio Alb/Cre 11 mcg/mg Normal 0-30 [facility] ([place]) Comment on above: Performed By: #### M ALBR ####[address] [place], [place] [address] Basophil percentageOrdered B y: Blade Bond on 03-28-2023 Bilirubin [Mass/Vol] 0.40 mg/dL 0.20-1.00 [facility] Comment on above: For patients on eltr ombopag therapy, use of Dimension [place] TBIL is not recommended. Chloride [Moles/Vol] 105 mmol/L 98-107 [facility] Glucose [Mass/Vol] 89 mg/dL 74-106 [facility] Potassium [Moles/Vol] 3.9 mmol/L 3.5-5.1 [facility] Protein [Mass/Vol] 7.7 g/dL 6.4-8.2 [facility] Sodium [Moles/Vol] 138 mmol/L 136-145 [facility] Laboratory - Chemistry and C hemistry - challengeOrdered By: Blade Bond on 03-28-2023 Albumin/Globulin [Mass ratio] 0.8 {ratio} 0.9-2.4 [facility] ALP [Catalytic activity/Vol] 151 U/L 45-117 [facility] ALT [Catalytic activity/Vol] 12 U/L 13-56 [facility] CO2 [Moles/Vol] 28.0 mmol/L 21.0-32.0 [facility] Globulin (S) [Mass/Vol] 4.3 g/dL 2.2-4.2 [facility] Urea nitrogen/Creatinine [Mass ratio] 27.5 mg/mg 10-20 [facility] No Panel InformationOrdered By: Blade Bond on 03-28-2023 Estimated GFR (MDRD) Amer 102 mL/min >60 [facility] Comment on above: GFR Calc Estimated GFR (MDRD) Non-Af Amer 84 mL/min >60 [facility] Comment on above: Non- GFR Calc Serum or plasma calcium tia urement (mass/volume)Ordered By: Blade Bond on 03-28-2023 Calcium [Mass/Vol] 8.8 mg/dL 8.5-10.1 [facility] Serum or plasma creatinine m easurement (mass/volume)Ordered By: Blade Bond on 03-28-2023 Creatinine [Mass/Vol] 0.73 mg/dL 0.55-1.02 [facility] Comment on above: The validity of the calculated GFR & GFRAA in patients over 70 years has not been determined. Clinical correlation is essential. Serum or plasma urea nitroge n measurement (mass/volume)Ordered By: Blade Bond on 03-28-2023 Urea nitrogen [Mass/Vol] 20 mg/dL 7-18 [facility] Thin prep Papanicolaou smear with manual screeningOrdered By: Blade Bond on 03-28-2023 Thin prep Papanicolaou smear with manual screening 3.4 g/dL 3.2-5.0 [facility] Thin prep Papanicolaou smear with manual screening 14 U/L 15-37 [facility] Thin prep Papanicolaou smear with manual screening 5 5-15 [facility] Final Surgical Pathology Rep kalli 03-27-2023 Final Surgical Pathology Report . Pathology Reports Accession: Collected Date/Time: Received Date/Time: Pathologist: [id number] 03/26/2023 10:00 EST 03/26/2023 13:56 MD MONIK [...] All parts labelled with patient name and [id number] A. Received in formalin labeled right and left colon biopsies are multiple dooley-pink tissue fragments measuring 1.8 x 0.3 x 0.2 cm. TS-1 B. Received in formalin labeled distal sigmoid polyp is 1 dooley-pink tissue fragment measuring 0.3 cm. TS-1 C. Received in formalin labeled rectal biopsies are 2 dooley-pink tissue fragments each measuring 0.3 x 0.2 cm. TS-1 Catalina Romero, Grossing Fullerette/ Dr. Juan Carlos Alba, Pathologist Dictated by Catalina Romero MICROSCOPIC DESCRIPTION: The microscopic examination is performed, except in the case of Gross Only. Electronically Signed by Pathology Report verified by [facility] MONIK CHEATHAM MD Sign out Date: 03/27/2023 09:04 Performing Lab: [facility], [address] [place] [address] Pathology Dept Disclaimer If ancillary studies were utilized, the following Laboratory Developed Test (LDT) disclaimer will apply: Pathology Reports Accession: Collected Date/Time: Received Date/Time: Pathologist: [id number] 03/26/2023 10:00 EST 03/26/2023 13:56 MD MONIK RIZO Disclaimer Under CLIA requirements, [facility] Pathology Laboratory is qualified to perform high complexity testing. For all ancillary stains, positive and negative controls stain appropriately. Performance characteristics of immunohistochemical and chromogenic in-situ hybridization tests have been determined by [facility] Pathology Laboratory. These tests are used for clinical purposes, They should not be regarded as investigational or for research. Normal [facility] ([place]) UAon 03-27-2023 Color (U) Yellow Normal [facility] ([place]) Comment on above: Performed By: #### U A ####[address] [place], [place] [address] Glucose (U) [Mass/Vol] Negative Normal Negative [facility] ([place]) Comment on above: Performed By: #### U A ####[address] [place], [place] [address] Ketones Ql (U) Negative Normal Negative [facility] ([place]) Comment on above: Performed By: #### U A ####[address] [place], [place] [address] UA Appear Clear Normal Clear [facility] ([place]) Comment on above: Performed By: #### U A ####[address] [place], [place] [address] UA Blood Trace Abnormal Negative [facility] ([place]) Comment on above: Performed By: #### U A ####[address] [place], [place] [address] UA Leuk Est Negative Normal Negative [facility] ([place]) Comment on above: Performed By: #### U A ####[address] [place], [place] [address] UA Nitrite Negative Normal Negative [facility] ([place]) Comment on above: Performed By: #### U A ####[address] [place], [place] [address] UA pH 6.0 Normal 5.0 - 8.0 [facility] ([place]) Comment on above: Performed By: #### U A ####[address] [place], [place] [address] UA Protein Negative Normal Negative [facility] ([place]) Comment on above: Performed By: #### U A ####Cl[address] [place], [place] [address] UA Spec Grav 1.010 Abnormal 1.015-1.025 [facility] ([place]) Comment on above: Performed By: #### U A ####[address] [place], [place] [address] UA Specimen Type Clean Catch Normal [facility] ([place]) Comment on above: Performed By: #### U A ####[address] [place], [place] [address] UA Urobilinogen 0.2 E.U./dL Normal 0.2-1.0 [facility] ([place]) Comment on above: Performed By: #### U A ####[address] [place], [place] [address] Urobilinogen (U) [Mass/Vol] Negative Normal Negative [facility] ([place]) Comment on above: Performed By: #### U A ####[address] [place], [place] [address] Table Lever Operator Cytology Reporton 2023 Table Lever Operator Cytology Report . Pathology Reports Accession: Collected Date/Time: Received Date/Time: Pathologist: [id number] 02/20/2023 10:19 EST 02/20/2023 18:00 EST Table Lever Operator Cytology Report SPECIMEN: Specimen Description: Liquid Prep [...] and evaluated with the assistance of the [employer] Test Imaging System. Pathology Reports Accession: Collected Date/Time: Received Date/Time: Pathologist: [id number] 02/20/2023 10:19 EST 02/20/2023 18:00 EST Electronically Signed by Pathology report verified by [facility] Screened by: KK Electronically signed by Cathy LOPEZ (ASCP) Sign-Out Date: 02/23/2023 15:58 Performing Lab: [facility], [address] [place] [address] Pathology Dept Disclaimer The Pap test is a screening test for cervical cancer. As evidenced by published data, it is subject to both inherent false negative and false positive results. Your patient's results should be interpreted in context with pertinent clinical history including gynecological examination. Normal [facility] ([place]) HPVon 02-23-2023 HPV Interp Normal See Interp HPVN [facility] ([place]) Comment on above: Order Comment: Order placed by AP_HPV_ORDER rule from [id number] Result Comment: High Risk HPV Typing: NEGATIVE [...] HPVN Performed By: #### H PV #### [address] [address] HPV Source Cervix Normal [facility] ([place]) Comment on above: Order Comment: Order placed by AP_HPV_ORDER rule from [id number] Performed By: #### H PV #### [address] [address] LABORATORYOrdered By: Radha Tinoco on 02-20-2023 HPV Interp High Risk [...] Auto (Unsp spec) [#/Vol] 0.91 10*3/uL 0.83-4.51 [facility] Basophil percentageOrdered B y: Juan Carlos Rosado on 12-30-2022 Basophils/100 WBC (Bld) 0.2 % 0-1 [facility] Chloride [Moles/Vol] 107 mmol/L 98-107 [facility] Eosinophils/100 WBC (Bld) 2.3 % 0-5 [facility] Glucose [Mass/Vol] 110 mg/dL 74-106 [facility] Comment on above: Fasting Glucose resu lt from 100 to 125 mg/dL suggests IMPAIRED HOMEOSTASIS per A.D.A. criteria. Neutrophils (Bld) [#/Vol] 3.0 10*3/uL 2.0-7.7 [facility] Neutrophils/100 WBC (Bld) 67.6 % 47-70 [facility] Potassium [Moles/Vol] 3.4 mmol/L 3.5-5.1 [facility] Sodium [Moles/Vol] 138 mmol/L 136-145 [facility] WBC (Bld) [#/Vol] 4.4 10*3/uL 4.4-11.0 [facility] Blood erythrocytes count (nu mber/volume)Ordered By: Juan Carlos Rosado on 12-30-2022 RBC (Bld) [#/Vol] 4.58 10*6/uL 4.2-5.4 [facility] Blood hemoglobin measurement (mass/volume)Ordered By: Juan Carlos Rosado on 12-30-2022 Hemoglobin (Bld) [Mass/Vol] 12.4 g/dL 12.0-15.0 [facility] Blood lymphocytes/100 leukoc ytesOrdered By: Juan Carlos Rosado on 12-30-2022 Lymphocytes/100 WBC (Bld) 20.8 % 19-41 [facility] Blood monocytes/100 leukocyt esOrdered By: Juan Carlos Rosado on 12-30-2022 Monocytes/100 WBC (Bld) 8.9 % 0-10 [facility] Blood platelet mean volumeOr dered By: Juan Carlos Rosado on 12-30-2022 Platelet mean volume (Bld) [Entitic vol] 10.0 fL 6.2-12.0 [facility] Determination of erythrocyte mean corpuscular volume (MCV)Ordered By: Juan Carlos Rosado on 12-30-2022 MCV (RBC) [Entitic vol] 85.6 fL 81-99 [facility] Hematocrit Auto (Bld) [Volum e fraction]Ordered By: Juan Carlos Rosado on 12-30-2022 Hematocrit (Bld) [Volume fraction] 39.2 % 37-47 [facility] Laboratory - Chemistry and C hemistry - challengeOrdered By: Juan Carlos Rosado on 12-30-2022 CO2 [Moles/Vol] 26.0 mmol/L 21.0-32.0 [facility] Urea nitrogen/Creatinine [Mass ratio] 30.7 mg/mg 10-20 [facility] Laboratory - Hematology and Cell countsOrdered By: Juan Carlos Rosado on 12-30-2022 Erythrocyte distribution width (RBC) [Entitic vol] 46.6 fL 35.1-43.9 [facility] Erythrocyte distribution width (RBC) [Ratio] 14.9 % 11.6-14.6 [facility] Immature granulocytes/100 WBC (Bld) 0.200 % 0.0-0.9 [facility] Comment on above: IG% - Immature Granu locytes (promyelocytes, myelocytes and metamyelocytes) > 1% indicates that a LEFT SHIFT is Present. MCH (RBC) [Entitic mass] 27.1 pg 27.0-32.0 [facility] Nucleated RBC/100 WBC (Bld) [Ratio] 0 % 0-5 [facility] MCHC Auto (RBC) [Mass/Vol]Or dered By: Juan Carlos Rosado on 12-30-2022 MCHC (RBC) [Mass/Vol] 31.6 g/dL 32-36 [facility] No Panel InformationOrdered By: Juan Carlos Rosado on 12-30-2022 Estimated Creatinine Clearance Calc 48.45 ml/min [facility] Estimated GFR (MDRD) Amer 110 mL/min >60 [facility] Comment on above: GFR Calc Estimated GFR (MDRD) Non-Af Amer 91 mL/min >60 [facility] Comment on above: Non- GFR Calc Troponin I High Sensitivity 6 pg/mL 3.0-54.0 [facility] Comment on above: Please Note: New Irais t Units and Gender Specific Reference Ranges. For more information see Policy Stat Procedure [place] High Sensitivity Troponin (TNIH) and attachments. Platelets bldOrdered By: Rene Rosado on 12-30-2022 Platelets (Bld) [#/Vol] 223 10*3/uL 150-450 [facility] Serum or plasma calcium tia urement (mass/volume)Ordered By: Juan Carlos Rosado on 12-30-2022 Calcium [Mass/Vol] 8.5 mg/dL 8.5-10.1 [facility] Serum or plasma creatinine m easurement (mass/volume)Ordered By: Juan Carlos Rosado on 12-30-2022 Creatinine [Mass/Vol] 0.68 mg/dL 0.55-1.02 [facility] Comment on above: The validity of the calculated GFR & GFRAA in patients over 70 years has not been determined. Clinical correlation is essential. Serum or plasma urea nitroge n measurement (mass/volume)Ordered By: Juan Carlos Rosado on 12-30-2022 Urea nitrogen [Mass/Vol] 21 mg/dL 08-22 [facility] Thin prep Papanicolaou smear with manual screeningOrdered By: Juan Carlos Rosado on 12-30-2022 Thin prep Papanicolaou smear with manual screening 06-19 [facility] LABORATORYOrdered By: SYSTEM SYSTEM on 06-15-2022 25-hydroxyvitamin [...] to follow No anaerobes isolated to date. [facility] Work Phone: Azithromycin ALIX [Susc]on Group A Beta Hemolytic Strep (Strep pyogenes) Group A Beta Hemolytic Strep (Strep pyogenes) [facility] Work Phone: GS 2+ Gram Positive Cocci [facility] Work Phone: Staphylococcus aureus Staphylococcus aureus [facility] Work Phone: LABORATORYOrdered By: SYSTEM SYSTEM on 05-01-2022 Free T4 [Mass/Vol] 1.55 ng/dL Invalid Interpretation Code 0.76 - 1.46 ng/dL AO ADM SS TSH Qn 3.79 m[IU]/L Invalid Interpretation Code 0.36 - 3.74 mcIU/mL AO ADM SS No Panel Informationon 05-01 Culture Urine 10,000 - 50,000 cfu/ ml Multiple bacterial morphotypes present. Probable Contamination. Suggest recollection if clinically indicated. [facility] Work Phone: LABORATORYOrdered By: Dejah Varela on [...] Time Vital Sign Value Performing Clinician Facility 08-21-2024 13:45-0400 Body height 167.[address] Blade Bond DO Work Phone: [facility] 08-21-2024 13:45-0400 Body weight 94.[address] Blade Bond DO Work Phone: [facility] 08-21-2024 13:45-0400 Heart rate 71 /min Dr. Blade Bond DO Work Phone: [facility] 08-21-2024 13:45-0400 Inhaled oxygen flow rate 1 L/min Dr. Blade Bond DO Work Phone: [facility] 08-21-2024 13:45-0400 SaO2% (BldA) [Mass fraction] 95 % Dr. Blade Bond DO Work Phone: [facility] 05-01-2024 08:08-0400 Body mass index (BMI) [Ratio] 35.5 kg/m2 Dr. Blade Bond DO Work Phone: [facility] 05-01-2024 08:08-0400 Body temperature 97.4 [degF] Dr. Blade Bond DO Work Phone: [facility] 05-01-2024 08:08-0400 Body weight 98.[address] Blade Bond DO Work Phone: [facility] 05-01-2024 08:08-0400 Diastolic blood pressure 79 mm[Hg] Dr. Blade Bond DO Work Phone: [facility] 05-01-2024 08:08-0400 Heart rate 82 /min Dr. Blade Bond DO Work Phone: [facility] 05-01-2024 08:08-0400 Inhaled oxygen flow rate 2 L/min Dr. Blade Bond DO Work Phone: [facility] 05-01-2024 08:08-0400 Respiratory rate 20 /min Dr. Blade Bond DO Work Phone: [facility] 05-01-2024 08:08-0400 SaO2% (BldA) [Mass fraction] 97 % Dr. Blade Bond DO Work Phone: [facility] 05-01-2024 08:08-0400 Systolic blood pressure 115 mm[Hg] Dr. Blade Bond DO Work Phone: [facility] 10-04-2023 13:39-0400 Body temperature 97.88 [degF] BLADE BOND DO [facility] 10-04-2023 13:39-0400 Diastolic Blood Pressure Non-Invasive 86 mm[Hg] BLADE BOND DO [facility] 10-04-2023 13:39-0400 Heart rate 90 /min BLADE BOND DO [facility] 10-04-2023 13:39-0400 Reason For Taking VItal Signs BLADE BOND DO [facility] 10-04-2023 13:39-0400 Respiratory rate 18 /min BLADE BOND DO [facility] 10-04-2023 13:39-0400 Systolic Blood Pressure Non-Invasive 124 mm[Hg] BLADE BOND DO [facility] 06-18-2023 20:32-0400 Body temperature 97.4 [degF] Dr. Blade Bond Work Phone: [facility] 06-18-2023 20:32-0400 Diastolic blood pressure 76 mm[Hg] Dr. Blade Bond Work Phone: [facility] 06-18-2023 20:32-0400 Heart rate 76 /min Dr. Blade Bond Work Phone: [facility] 06-18-2023 20:32-0400 Respiratory rate 20 /min Dr. Blade Bond Work Phone: [facility] 06-18-2023 20:32-0400 SaO2% (BldA) [Mass fraction] 95 % Dr. Blade Bond Work Phone: [facility] 06-18-2023 20:32-0400 Systolic blood pressure 107 mm[Hg] Dr. Blade Bond Work Phone: [facility] 06-18-2023 18:48-0400 Inhaled oxygen flow rate 2 L/min Dr. Blade Bond Work Phone: [facility] 06-18-2023 18:31-0400 Body mass index (BMI) [Ratio] 36.1 kg/m2 Dr. Blade Bond Work Phone: [facility] 06-18-2023 18:31-0400 Body weight 99.[address] Blade Bond Work Phone: [facility] 06-18-2023 17:06-0400 Body height 166.[address] Blade Bond Work Phone: [facility] 05-29-2023 08:56-0400 Body mass index (BMI) [Ratio] 36.5 kg/m2 Dr. Blade Bond Work Phone: [facility] 05-29-2023 08:56-0400 Body temperature 98.6 [degF] Dr. Blade Bond Work Phone: [facility] 05-29-2023 08:56-0400 Body weight 101.[address] Blade Bond Work Phone: [facility] 05-29-2023 08:56-0400 Diastolic blood pressure 79 mm[Hg] Dr. Blade Bond Work Phone: [facility] 05-29-2023 08:56-0400 Heart rate 97 /min Dr. Blade Bond Work Phone: [facility] 05-29-2023 08:56-0400 Inhaled oxygen flow rate 2 L/min Dr. Blade Bond Work Phone: [facility] 05-29-2023 08:56-0400 SaO2% (BldA) [Mass fraction] 97 % Dr. Blade Bond Work Phone: [facility] 05-29-2023 08:56-0400 Systolic blood pressure 123 mm[Hg] Dr. Blade Bond Work Phone: [facility] 03-26-2023 10:18-0500 Diastolic Blood Pressure Non-Invasive 64 mm[Hg] DR PATRICIA STEVENS MD [facility] 03-26-2023 10:18-0500 Heart rate 87 /min DR PATRICIA STEVENS MD [facility] 03-26-2023 10:18-0500 Respiratory rate 23 /min DR PATRICIA STEVENS MD [facility] 03-26-2023 10:18-0500 Systolic Blood Pressure Non-Invasive 122 mm[Hg] DR PATRICIA STEVENS MD [facility] 03-26-2023 10:16-0500 Diastolic Blood Pressure Non-Invasive 70 mm[Hg] DR PATRICIA STEVENS MD [facility] 03-26-2023 10:16-0500 Heart rate 80 /min DR PATRICIA STEVENS MD [facility] 03-26-2023 10:16-0500 Respiratory rate 21 /min DR PATRICIA STEVENS MD [facility] 03-26-2023 10:16-0500 Systolic Blood Pressure Non-Invasive 117 mm[Hg] DR PATRICIA STEVENS MD [facility] 03-26-2023 10:11-0500 Diastolic Blood Pressure Non-Invasive 76 mm[Hg] DR PATRICIA STEVENS MD [facility] 03-26-2023 10:11-0500 Heart rate 81 /min DR PATRICIA STEVENS MD [facility] 03-26-2023 10:11-0500 Respiratory rate 23 /min DR PATRICIA STEVENS MD [facility] 03-26-2023 10:11-0500 Systolic Blood Pressure Non-Invasive 107 mm[Hg] DR PATRICIA STEVENS MD [facility] 03-26-2023 10:08-0500 Body temperature 98.06 [degF] DR PATRICIA STEVENS MD [facility] 03-26-2023 10:05-0500 Respiratory Rate - Anes 33 br/min DR PATRICIA STEVENS MD [facility] 03-26-2023 10:00-0500 Respiratory Rate - Anes 40 br/min DR PATRICIA STEVENS MD [facility] 03-26-2023 09:55-0500 Respiratory Rate - Anes 9 br/min DR PATRICIA STEVENS MD [facility] 03-26-2023 09:48-0500 Body height 165.[address] PATRICIA STEVENS [facility] [facility] 03-26-2023 09:48-0500 Body temperature 98.06 [degF] DR PATRICIA STEVENS MD [facility] 03-26-2023 09:48-0500 Body weight 99.[address] PATRICIA STEVENS MD [facility] 03-26-2023 09:48-0500 Heart rate 71 /min DR PATRICIA STEVENS MD [facility] 12-30-2022 15:42-0500 Body temperature 97.8 [degF] Dr. Blade Bond Work Phone: [facility] 12-30-2022 15:42-0500 Diastolic blood pressure 65 mm[Hg] Dr. Blade Bond Work Phone: [facility] 12-30-2022 15:42-0500 Heart rate 60 /min Dr. Blade Bond Work Phone: [facility] 12-30-2022 15:42-0500 Respiratory rate 12 /min Dr. Blade Bond Work Phone: [facility] 12-30-2022 15:42-0500 SaO2% (BldA) [Mass fraction] 100 % Dr. Blade Bond Work Phone: [facility] 12-30-2022 15:42-0500 Systolic blood pressure 127 mm[Hg] Dr. Blade Bond Work Phone: [facility] 12-30-2022 15:00-0500 Inhaled oxygen flow rate 2 L/min Dr. Blade Bond Work Phone: [facility] 12-30-2022 12:49-0500 Body mass index (BMI) [Ratio] 36.9 kg/m2 Dr. Blade Bond Work Phone: [facility] 12-30-2022 12:49-0500 Body weight 102.[address] Blade Bond Work Phone: [facility] 12-30-2022 12:35-0500 Body height 166.[address] Blade Bond Work Phone: [facility] 11-23-2022 06:09-0400 Body mass index (BMI) [Ratio] 42.4 kg/m2 Dr. Blade Bond Work Phone: [facility] 11-23-2022 06:09-0400 Body temperature 95.7 [degF] Dr. Blade Bond Work Phone: [facility] 11-23-2022 06:09-0400 Body weight 119.[address] Blade Bond Work Phone: [facility] 11-23-2022 06:09-0400 Diastolic blood pressure 84 mm[Hg] Dr. Blade Bond Work Phone: [facility] 11-23-2022 06:09-0400 Heart rate 87 /min Dr. Blade Bond Work Phone: [facility] 11-23-2022 06:09-0400 Inhaled oxygen flow rate 1 L/min Dr. Blade Bond Work Phone: [facility] 11-23-2022 06:09-0400 Respiratory rate 22 /min Dr. Blade Bond Work Phone: [facility] 11-23-2022 06:09-0400 SaO2% (BldA) [Mass fraction] 96 % Dr. Blade Bond Work Phone: [facility] 11-23-2022 06:09-0400 Systolic blood pressure 125 mm[Hg] Dr. Blade Bond Work Phone: [facility] 05-26-2022 09:34-0400 Body height 167.[address] Blade Bond Work Phone: [facility] 05-26-2022 09:34-0400 Body mass index (BMI) [Ratio] 37.8 kg/m2 Dr. Blade Bond Work Phone: [facility] 05-26-2022 09:34-0400 Body temperature 97 [degF] Dr. Blade Bond Work Phone: [facility] 05-26-2022 09:34-0400 Body weight 106.[address] Blade Bond Work Phone: [facility] 05-26-2022 09:34-0400 Diastolic blood pressure 80 mm[Hg] Dr. Blade Bond Work Phone: [facility] 05-26-2022 09:34-0400 Heart rate 89 /min Dr. Blade Bond Work Phone: [facility] 05-26-2022 09:34-0400 Inhaled oxygen flow rate 2 L/min Dr. Blade Bond Work Phone: [facility] 05-26-2022 09:34-0400 Respiratory rate 20 /min Dr. Blade Bond Work Phone: [facility] 05-26-2022 09:34-0400 SaO2% (BldA) [Mass fraction] 94 % Dr. Blade Bond Work Phone: [facility] 05-26-2022 09:34-0400 Systolic blood pressure 142 mm[Hg] Dr. Blade Bond Work Phone: [facility] 06-07-2021 11:15-0400 Body height 167.[address] Ayla Mane Work Phone: [facility] Work Phone: 06-07-2021 11:15-0400 Body weight 108.[address] Ayla Mane Work Phone: [facility] Work Phone: 06-07-2021 11:15-0400 Heart rate 72 /min Dr. Ayla Mane Work Phone: [facility] Work Phone: 06-07-2021 11:15-0400 SaO2% (BldA) [Mass fraction] 95 % Dr. Ayla Mane Work Phone: [facility] Work Phone: 03-17-2021 11:45-0500 Body mass index (BMI) [Ratio] 38.9 kg/m2 Dr. Ayla Mane Work Phone: [facility] Work Phone: 03-17-2021 11:45-0500 Body temperature 98.4 [degF] Dr. Ayla Mane Work Phone: [facility] Work Phone: 03-17-2021 11:45-0500 Body weight 109.[address] Ayla Mane Work Phone: [facility] Work Phone: 03-17-2021 11:45-0500 Diastolic blood pressure 76 mm[Hg] Dr. Ayla Mane Work Phone: [facility] Work Phone: 03-17-2021 11:45-0500 Heart rate 72 /min Dr. Ayla Mane Work Phone: [facility] Work Phone: 03-17-2021 11:45-0500 Respiratory rate 18 /min Dr. Ayla Mane Work Phone: [facility] Work Phone: 03-17-2021 11:45-0500 SaO2% (BldA) [Mass fraction] 96 % Dr. Ayla Mane Work Phone: [facility] Work Phone: 03-17-2021 11:45-0500 Systolic blood pressure 129 mm[Hg] Dr. Ayla Mane Work Phone: [facility] Work Phone: Encounters Encounter Date Encounter Type Care Provider Facility Start: 09-22-2024 ambulatory Blade Bond Facility: [facility] Start: 09-19-2024 Encounter for other preprocedural examination Misael Yates [facility] Start: 09-08-2024 End: 09-08-2024 ambulatory BLADE BOND DO Facility:[facility] Start: 09-08-2024 End: 09-08-2024 Patient encounter procedure BLADE BOND DO [facility] Start: 09-08-2024 End: 09-08-2024 Preprocedural examination done BLADE BOND DO [facility] Start: 09-08-2024 End: 09-08-2024 Well adult monitoring check done BLADE BOND DO [facility] Start: 08-22-2024 ambulatory Glendy Ugarte NP Fac ility:[facility] Start: 08-22-2024 Non-patient / Non-visit Dr. Flaco guido DO -[facility] Start: 08-21-2024 End: 08-21-[address] Blade Bond DO Work Phone: -Pulmonary Services/Neurology Start: 08-21-2024 End: 08-21-2024 Patient encounter procedure Glendy Ugarte NP-C -Pulmonary Services/Neurology Work Phone: Start: 08-21-2024 End: 08-21-2024 ambulatory Glendy Ugarte NP Facility:[facility] Start: 07-10-2024 Non-patient / Non-visit Dr. Flaco guido DO -[facility] Start: 07-10-2024 End: 07-10-[address] Blade Bond DO Work Phone: [facility] Work Phone: Start: 07-10-2024 End: 07-10-2024 Patient encounter procedure Glendy Ugarte NP-C -Pulmonary Services/Neurology Work Phone: Start: 07-10-2024 End: 07-10-2024 ambulatory Blade Bond Facility:[facility] Start: 07-04-2024 End: 07-08-2024 ambulatory BLADE BOND DO Facility:[facility] Start: 07-04-2024 End: 07-08-2024 Encounter for general adult medical examination without abnormal findings BLADE BOND DO Facility:[facility] Start: 07-04-2024 End: 07-08-2024 Outreach Lab BLADE BOND DO [facility] Start: 05-01-2024 End: 05-01-2024 Patient encounter procedure Glendy LOPEZ -[facility] Work Phone: Start: 05-01-2024 End: 05-01-2024 ambulatory Blade Bond Facility:[facility] Start: 04-25-2024 End: 04-25-[address] Blade Bond DO Work Phone: [facility] Work Phone: Start: 04-25-2024 End: 04-25-2024 Patient encounter procedure Glendy LOPEZ -Cat Scan, [facility] Work Phone: Start: 04-25-2024 End: 04-25-2024 ambulatory Blade Bond Facility:[facility] Start: 04-02-2024 End: 04-06-2024 ambulatory BLADE BOND DO Facility:[facility] Start: 04-02-2024 End: 04-06-2024 Outreach Lab BLADE BOND DO [facility] Start: 03-07-2024 End: 03-07-2024 ambulatory BLADE BOND DO Facility:[facility] Start: 03-07-2024 End: 03-07-2024 Patient encounter procedure BLADE BOND DO [facility] Start: 11-29-2023 End: 11-29-2023 ambulatory Blade Bond Facility:[facility] Start: 11-16-2023 End: 11-20-2023 ambulatory BLADE BOND DO Facility:[facility] [place] Start: 11-16-2023 End: 11-20-2023 Outreach Lab BLADE BOND DO [facility] Start: 10-04-2023 End: 10-04-2023 ambulatory BLADE BOND DO Facility:[facility] Start: 10-04-2023 End: 10-04-2023 SAME DAY STAY BLADE BOND DO [facility] Start: 08-27-2023 End: 08-27-2023 ambulatory BLADE BOND DO Facility:[facility] Start: 08-27-2023 End: 08-27-2023 Patient encounter procedure BLADE BOND DO [facility] Start: 06-18-2023 End: 06-18-2023 Emergency department patient visit Dr. Blade Bond Work Phone: [facility]-Emergency Department Work Phone: Start: 05-29-2023 End: 05-29-[address] Blade Bond Work Phone: [facility] Work Phone: Start: 03-29-2023 End: 04-02-2023 ambulatory ESHA HAIDER MD Facility:[facility] Start: 03-28-2023 End: 03-28-[address] Blade Bond Work Phone: [facility]-Laboratory Work Phone: Start: 03-27-2023 End: 03-31-2023 ambulatory ESHA HAIDER MD Facility:[facility] Start: 03-26-2023 End: 03-26-[address] PATRICIA STEVENS MD Facility:[facility] Start: 03-26-2023 End: 03-26-[address] PATRICIA STEVENS MD [facility] Start: 02-20-2023 End: 02-24-2023 ambulatory ESHA HAIDER MD Facility:[facility] Start: 02-20-2023 End: 02-24-2023 Outreach Lab ESHA HAIDER MD [facility] Start: 12-30-2022 End: 12-30-2022 Emergency department patient visit Dr. Blade Bond Work Phone: [facility]-Emergency Department Work Phone: Start: 12-30-2022 End: 12-30-[address] Blade Bond Work Phone: [facility] Work Phone: Start: 12-30-2022 End: 12-30-[address] Blade Bond Work Phone: [facility] Work Phone: Start: 12-07-2022 ambulatory BLADE Woodward lity:[place] Start: 11-23-2022 End: 11-23-[address] Blade Bond Work Phone: [facility] Work Phone: Start: 06-15-2022 End: 06-15-2022 Patient encounter procedure BLADE BOND DO [facility] Start: 06-06-2022 End: 06-06-[address] Blade Bond Work Phone: [facility] Work Phone: Start: 06-06-2022 End: 06-06-[address] Blade Bond Work Phone: [facility], [facility] Start: 05-26-2022 End: 05-26-[address] Blade Bond Work Phone: [facility]-Pulmonary Medicine [facility] Start: 05-05-2022 End: 05-09-2022 Outreach Lab BLADE Jesus BOND DO [facility] Start: 05-01-2022 End: 05-05-2022 Outreach Lab LUNA Paula DEDAR WINDOWS SOFTWARE DEVELOPER-MANAGER WILLOW [facility] Start: 05-01-2022 End: 05-01-2022 Patient encounter procedure BLADE BOND DO [facility] Start: 05-01-2022 End: 05-01-2022 Well adult monitoring check done BLADE BOND DO [facility] Start: 06-08-2021 Non-patient / Non-visit Dr. Porsche Mane Work Phone: [facility] Start: 06-07-2021 End: 06-07-[address] Ayla Mane Work Phone: [facility]-Pulmonary Services/Neurology Start: 05-23-2021 End: 05-23-2021 Patient encounter procedure AYLA MANE MD [facility] Start: 04-14-[address] Ayla Mane Work Phone: [facility] Start: 03-30-2021 Non-patient / Non-visit Dr. Porsche Mane Work Phone: [facility] Start: 03-29-2021 End: 03-29-[address] [facility] Start: 03-17-2021 End: 03-17-[address] Ayla Mane [facility] Start: 01-13-2021 End: 01-13-2021 Patient encounter procedure JESENIA L CARYN WINDOWS SOFTWARE DEVELOPER-MANAGER WILLOW 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 [employer] Start: 02-05-1958 Tonsillectomy and adenoidectomy JESENIA RUBIN WINDOWS SOFTWARE DEVELOPER-MANAGER WILLOW Entire elbow region (body structure) JESENIA RUBIN WINDOWS SOFTWARE DEVELOPER-MANAGER WILLOW Comment on above: nodules removed 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) DR PATRICIA STEVENS MD Comment on above: 9 YEARS AGO Plan of Treatment Date Care Activity Detail Author Start: 06-18-[facility]23 [facility] Start: 06-18-2023 [facility] Start: 05-29-2023 Patient referral [facility] Work Phone: Start: 12-30-2022 [facility] Start: 12-30-[address] [facility] [address] Chest [facility] CT Chest [facility] Patient Education [facility] Work Phone: Patient referral [facility] Work Phone: Immunizations Immunization Date Immunization Notes Care Provider [facility] 11-23-2022 influenza virus vacc ine, unspecified formulation BLADE BOND DO [facility] 11-23-2022 influenza, injectabl e, quadrivalent, preservative free Dr. Blade Bond Work Phone: [facility] 12-20-2021 influenza, high dose seasonal, preservative-free BLADE BOND DO [facility] 09-20-2021 COVID-19, mRNA, LNP- S, PF, 100 mcg or 50 mcg dose; Translations: [Moderna COVID-19 Vaccine] BLADE BOND DO [facility] 09-20-2021 pneumococcal polysaccharide vaccine, 23 valent; Translations: [Pneumovax 23] BLADE BOND DO [facility] 01-25-2021 SARS-CoV-2 (COVID-19 ) mRNA-1273 vaccine AYLA MANE MD [facility] Comment on above: Result Comment: 2021: [id number] 05-10-2020 COVID-19, mRNA, LNP- S, PF, 100 mcg/ 0.5 mL dose; Translations: [Moderna COVID-19 Vaccine] JESENIA RUBIN [facility] 04-12-2020 COVID-19, mRNA, LNP- S, PF, 100 mcg/ 0.5 mL dose; Translations: [Moderna COVID-19 Vaccine] [facility]IA [facility] 11-19-2019 influenza, injectabl e, quadrivalent, preservative free; Translations: [Fluarix PF Quadrivalent ] JESNEIA RUBIN [facility] 01-06-2019 influenza, injectabl e, quadrivalent, preservative free; Translations: [Fluarix PF Quadrivalent ] JESENIA RUB[facility] 01-06-2019 pneumococcal conjuga te vaccine, 13 valent; Translations: [Prevnar 13] JESENIA RUBIN [facility] 07-10-2018 tetanus toxoid, redu reynaldo diphtheria toxoid, and acellular pertussis vaccine, adsorbed JESENIA RUBIN [facility] 12-31-2017 influenza virus vacc ine, unspecified formulation JESENIA RUBIN [facility] 12-18-2016 influenza virus vacc ine, unspecified formulation JESENIA RUBIN [facility] 12-06-[address] Ayla Mane Work Phone: [facility] 01-27-2016 influenza virus vacc ine, unspecified formulation JESENIA RUBIN WINDOWS SOFTWARE DEVELOPER-MANAGER WILL[employer] [facility] 08-24-1999 diphtheria and tetan us toxoids, adsorbed for pediatric use JESENIA RUBIN WINDOWS SOFTWARE DEVELOPER-MANAGER [employer] [facility] Payers Date Payer Category Payer Self-pay [id number] 2022 Medicare [id number] 2022 Unknown [id number] 2019 Medicare [id number] 2019 Private Health Insurance [id number] 2019 Unknown [id number] 2015 Unknown [id number] 1954 Unknown [id number] 2.16.8 40.1.975925.3.579.2.627 1954 Unknown [id number] 2.16.8 40.1.947690.3.579.2.627 1954 Unknown [id number] 2.16.8 40.1.279448.3.579.2.627 1954 Unknown [id number] 2.16.8 40.1.816086.3.579.2. 1954 Unknown [id number] .16.8 40.1.471165.3.579.2. 1954 Unknown [id number] .16.8 40.1.596326.3.579.2. 1954 Unknown [id number] .16.8 40.1.066073.3.579.2. 1954 Unknown [id number] .16.8 40.1.543545.3.579.2. 1954 Unknown [id number] .16.8 40.1.528185.3.579.2. 1954 Unknown [id number] .. 840.1.047604.3.579.2. 1954 Unknown [id number] .16.8 40.1.606696.3.579.2. 1955 Unknown [id number] .16.8 40.1.088953.3.579.2. 1955 Unknown [id number] .16.8 40.1.128508.3.579.2. 1955 Unknown [id number] 2.16.8 40.1.018891.3.579.2.627 Unknown [id number] 2.16.8 40.1.835368.3.579.2.462 Unknown [id number] 2.16.8 40.1.461405.3.579.2.462 Unknown [id number] 2.16.8 40.1.621715.3.579.2.462 Unknown [id number] 2.16.8 40.1.778610.3.579.2.462 Unknown [id number] 2.16.8 40.1.781253.3.579.2.462 Unknown [id number] 2.16.8 40.1.431828.3.579.2.462 Unknown [id number] 2.16.8 40.1.658518.3.579.2.462 Unknown [id number] 2.16.8 40.1.126625.3.579.2.462 Social History Date Type Detail Facility Start: 08-19-2018 End: 12-30-2022 Heavy tobacco smoker (finding) [facility] Start: 1955 Sex Assigned At Female A [facility] Start: 06-10-2021 End: 06-18-2023 Tobacco smoking status NCIS Unknown if ever smoked [facility] Start: 04-23-2019 None [facility] Start: 04-23-2019 Spouse/ Signif icant Other [facility] Start: 04-18-2021 Cigarettes [facility] Start: 06-22-2023 End: 09-03-2023 Tobacco smoking status Light tobacco smoker (finding) [facility] Comment on above: says not much right now Sexual Orientation [facility] Start: 04-10-2019 End: 05-01-2024 Sex Female (finding) [facility] Start: 06-18-2023 Tobacco smoking stat us NCIS Smokes tobacco daily (finding) [facility] Start: 09-08-2024 Tobacco smoking status Ex-smoker (fi nding) [facility] Comment on above: quit June 23, 2024 says not much right now Functional Status Date Assessment Result Facility 03-26-2023 Functional Status Maintained [facility] Mental Status Date Assessment Result Facility 06-18-2023 Cognitive function Level Of Cons ciousness Awake;Alert;Appropriate;Follow s Commands [facility] Work Phone: 03-26-2023 Mental Status Oriented x 4 [facility] 12-30-2022 Cognitive function Level Of Cons ciousness Alert;Appropriate;Follows Commands;Drowsy;Responds to vocal stimuli [facility] Work Phone: Clinical Notes 02-23-2023 to 08-22-2024 Note Date & Type Note Facility 08-22-2024 Procedure note [facility] 05-01-2024 Evaluation note Diagnosis Onset Date Resolution Asthma-COPD overlap syndrome chronic May 01, 2024 3:11pm Respiratory failure with hypoxia chronic May 01, 2024 3:11pm Rheumatoid arthritis chronic [place] 2024 3:11pm Tobacco abuse chronic May 01, 2024 3:11pm [facility] Work Phone: 1(402) 796-144403-21-2025 Radiology Diagnostic study note [facility] Imaging Services [address] [place] [address] Lung Screening MR#: [id number] Acct: [id number] Name: DONALDO ZHAO Rep #: [id number] : 1955 F 69 From: Emanuel Estrada MD PCP: Dr. Blade Bond, DO Status: [facility] CLI Study:Low Dose CT Lung Screening Date of Exam : 04/25/24 Exam# [id number] Ordering Dr: Chepe Ugarte LETTER SORTING MACHINE OPERATOR LETTER SORTING MACHINE OPERATOR-C PROCEDURE: LOW DOSE CT LUNG SCREENING [...] use of iterative reconstruction technique). REFERENCE LINK: [facility] Lung-RADS RADIATION DOSE SUMMARY: CTDlvol: 4.02 mGy [...] LDCT. Other Significant Findings: None. Reading Location: [place] [address] CC: JOHN Ugarte; Dr. Blade Bond, DO ~ Fire Safety Manager: Signed [facility]08-29-2024 Nurse Progress note patient tolerated prolia injection without signs or symptoms of a reaction Digitally Signed by Glendy Rosales RN on 10/04/2023 02:[address] [facility]07-22-2024 Note ORIGINAL EXAMINATION: BONE DENSITOMETRY 08/27/2023 2:19 [...] Date: 08/27/2023 4:18:37 PM Ordering Provider: BLADE Olivares [place] [id number] Discharge summary Author Danilo Rubio [facility] June 18, 2023 8:03pm Note Date/Time June 18, 2023 5:52p [facility] Medical Records Department [address] [place] [address] Emergency Department Summary 06/18/23 MR#: [id number] Acct: [id number] Name: DONALDO ZHAO Rep #:[id number] : 1955 68 From: Danilo Rubio [...] She has had runny nose as well. [facility] Medical History Anal squamous cell carcinoma Anxiety [...] hydrate Allergy Itching Verified 06/18/23 17:08 [From [facility]] Surgical History H/O section H/O hysterectomy with [...] home with follow-up. She feels improved and [facility] discussed observation with her, but she declined. She will follow-up with her derrick operator and inquire about nebulizer treatments. In the meantime she will use her rescue inhaler every 4-6 hours 2 puffs inhaled as needed. She willuse [id number]-zcr-obnmdga medications as needed as well. Return instructions [...] 82.9 H Lymph % (Auto) 9.4 L Wilbarger % (Auto) 4.8 Eos % (Auto) 1.1 [...] Clarity Clear Urine pH 6.0 Ur Specific Denio 1.015 Urine Protein 30 H Urine Glucose [...] you. You may want to ask your derrick operator about nebulizer treatments for home use. In [...] problems, contact your Primary Care Provider. Call [facility] [employer] [facility] ([phone]) or report to the closest Emergency Room. Call 911 if necessary. 06/18/232002 <Electronically signed by Danilo Rubio MD> Cosigner Signature (if applicable): CC: Dr. Blade Bond DO ~ Signed [facility] Work Phone: 1(709) 759-212505-13-2024 Hospital Discharge instructions Additional Instructions You had a DuoNeb aerosolized treatment today which helped you. You may want to ask your derrick operator about nebulizer treatments for home use. In the meantime, use your rescue inhaler every 4-6 hours 2 puffs inhaled along with taking the burst of prednisone for the next 7 days.[facility] Work Phone: 1(586) 216-253802-22-2024 Note. MICRO - Microbiology PROCEDURE: Urine Culture [*1] SOURCE: Urine BODY SITE: COLLECTED DATE/TIME: 03/27/2023 16:24 EST RECEIVED DATE/TIME: 03/27/2023 19:06 EST START DATE/TIME: 03/27/2023 19:06 EST FREE TEXT SOURCE: FINAL REPORTS Final Report [] Verified Date/Time/Personnel: 03/29/2023 07:34 EST 10,000 - 50,000 cfu/ml Mixed growth consistent with normal urogenital nay. PRELIMINARY REPORTS Preliminary Report [] Verified Date/Time/Personnel: 03/28/2023 09:28 EST No growth to date Performing Locations *1: This test was performed at: [facility], [address] [place] [address], [address]- , [facility] ([place])03-26-2023 Evaluation + Plan noteExtracted from: Title:Clinical Document Author:PATRICIA STEVENS Date:03/26/23 [place] ADMISSION HISTORY AN D PHYSICIAL CHIEF COMPLAINT: HISTORY OF PRESENT ILLNESS: REVIEW OF SYSTEMS: ACTIVE PROBLEMS: (30) Arthritis, rheumatoid ([id number]) Colon polyps ([id number]) COPD - Chronic obstructive pulmonary disease (884660087) COVID-19 (6525975282) Elevated TSH (1935295616) Essential hypertension (45859576) GERD (gastroesophageal reflux disease) (606676706) Glasses (7275895310) Hard of hearing (390722644) History of anal cancer (9715062828) Hypothyroidism (93714213) Increased frequency of urination (034642618) Insomnia (075863439) 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 (345271655) Long-term current use of proton pump inhibitor therapy (3088714560) Major depressive disorder, recurrent (515510947) On supplemental oxygen by nasal cannula (6040748017) Osteopenia (229537067) Prolapse, uterovaginal (51829086) Restless leg syndrome (07187806) Rheumatoid nodules (06059N0Z-O10Y-0930-775N-9M28X4I31RSR) Right hip pain (39804846) Sebaceous cyst (5702562563) Shortness of breath on exertion (095202610) Snores (5010134150) SOBOE (shortness of breath on exertion) (4L44S75Q-9MP6-6TBT-2Z0I-40EDQ42097XB) Tobacco use (7790346404) Urinary incontinence (7419989407) Vertigo, some tinnitus and hearing loss (6226506876) Vitamin D deficiency (09459986) MEDICATIONS: Active Inpt Meds: None Active PRN Meds: None One Time Meds: None Active IV Meds: Lactated Ringers Infusion 1,000 mL (LR 1,000 mL) Start: 03/26/23 9:39:00 EST, Rate: 50 mL/hr, 03/26/23 9:39:00 EST ALLERGIES: (1) Duricef FAMILY HISTORY: SOCIAL HISTORY: PHYSICAL EXAM: VITALS: AuwabuBihbEYSlmxdTFZkC6GIO8RsjmGk(kg) 03/26 09:4836.7--507582 2.0L/m003/26 99.5 24 Hr Tmax: 36.7 at [...] Date:04/02/2023 01:30:00 PM Scheduled Provider:BLADE BOND DO Location:[facility] Appointment Type: OV Appointment Date:06/18/2023 03:00:00 PM Scheduled Provider:BLADE BOND DO Location:[facility] Appointment Type:PC Wellness Medicare Future Scheduled [...] 12/08/22 * CT Thorax w/ Contrast 01/02/[address] [facility] 02-19-2024 Hospital Discharge instructions Patient Education 03/26/2023 [...] a slower pace than normal. ?Eat soft, ufsb-ta-jobnwy foods. ?Rest often. Take lniu-ujh-suczwnc or prescription medicines only as told by [...] 07/03/2017 Document Revised: 01/04/2018 Document Reviewed: 07/03/2017 [employer] Patient Education 2020 [employer]. 03/26/2023 10:40:45 Diverticulosis Diverticulosis Diverticulosis is a [...] overweight. Not getting enough exercise. Smoking. Taking bgch-tkm-xmetbmm pain medicines, like aspirin and ibuprofen. Having [...] health care provider or your diet and workforce specialist (dietitian). ?Take a fiber supplement or probiotic, if your health care provider approves. Take vpfa-xbu-fwsokcc and prescription medicines only as told by [...] 10/19/2004 Document Revised: 01/04/2018 Document Reviewed: 12/11/2016 [employer] Patient Education 2020 [employer]. 03/26/2023 10:14:29 Steps to Quit Smoking, Edfe-rz-Nlov Steps to Quit Smoking Smoking tobacco is [...] a prescription, and some you can buy iyxg-vrf-aawzkev. Some medicines may contain a drug called [...] as websites. Examples include QuitGuide from the [employer] and smokefree.gov What things can I do to make it easier to quit? Talk to your family and friends. Ask them to support and encourage you. Call a phone quitline (6-697-OPFONOW), reach out to support groups, or work [...] 11/18/2009 Document Revised: 04/11/2019 Document Reviewed: 04/12/2019 [employer] Patient Education 2020 [employer]. 03/26/2023 10:14:13 Colonoscopy, Adult, Care After, Yzcl-et-Xfzq Colonoscopy, Adult, Care After This sheet gives [...] are soft and easy to digest. Take amvt-rey-httqmjf or prescription medicines only as told by [...] 02/24/2011 Document Revised: 11/22/2017 Document Reviewed: 10/16/2016 [employer] Patient Education 2020 [employer]. 03/26/2023 10:14:02 Monitored Anesthesia Care, Care After [...] before eating solid foods. General instructions Take lsvw-ecl-mmxhbgf and prescription medicines only as told by [...] 05/14/2016 Document Revised: 04/22/2018 Document Reviewed: 05/14/2016 [employer] Patient Education 2020 [employer]. Follow Up Care 03/15/2023 09:34:53 With:PATRICIA STEVENS MD Address: [address] [place] [phone]- [phone] When: Unknown Comments:CALL DR STEVENS WITH ANY QUESTIONS OR CONCERNS. GO TO THE EMERGENCY ROOM WITH ANY URGENT CONCERNS. YOU DO HAVE SOME DIVERTICULI . With:PATRICIA STEVENS MD Address: [address] [facility] [address] [place] [phone] When: Unknown Comments:CALL DR STEVENS WITH ANY QUESTIONS OR CONCERNS. GO TO THE EMERGENCY ROOM WITH ANY URGENT CONCERNS. [facility] 02-19-2024 Note Discharge Instructions Thank you for allowing [facility] to assist you with your healthcare needs. The following is importantdischarge information regarding your hospital visit. Your Care Team BLADE BOND DO DR ROS STEVENS What to do next Scheduled Follow-Up Appointments Appointment Type When With [facility]27/[facility]23 01:30 PM ESHA DHILLON MD [facility] 04/02/2023 01:30 PM EST BLADE BOND DO [facility] [address] [phone] PC Wellness Medicare 06/18/2023 03:00 PM EDT BLADE BOND DO [address] [phone] Follow Up Appointments Follow Up with PATRICIA STEVENS MD When Why: CALL DR STEVENS WITH ANY QUESTIONS OR CONCERNS. GO TO THE EMERGENCY ROOM WITH ANY URGENT CONCERNS. YOU DO HAVE SOME DIVERTICULI . Where: [address] [facility] [address] [place] [phone] The Following Activity and Diet Have Been [...] Why Instructions Last Dose Unchanged acetaminophen- hydrocodone (Baggs 325- 5 mg oral tablet) 1 tab(s) by mouth Every 6 hours Right hip pain Duration: 30 Days Goal is #8 per month or less Unchanged acetaminophen-hydrocodone (Baggs 325- 5 mg oral tablet) 1 tab(s) [...] slower pace than normal. ? Eat soft, vwju-xl-jrpwnd foods. ? Rest often. Take bzzx-szp-vzzmqpa or prescription medicines only as told by [...] 07/03/2017 Document Revised: 01/04/2018 Document Reviewed: 07/03/2017 [employer] Patient Education 2020 [employer] Diverticulosis Diverticulosis is a condition that [...] overweight. Not getting enough exercise. Smoking. Taking trmn-rhs-xaiihzw pain medicines, like aspirin and ibuprofen. Having [...] health care provider or your diet and workforce specialist (dietitian). ? Take a fiber supplement or probiotic, if your health care provider approves. Take qmep-wdx-jvlwops and prescription medicines only as told by [...] 10/19/2004 Document Revised: 01/04/2018 Document Reviewed: 12/11/2016 [employer] Patient Education 2020 [employer] Steps to Quit Smoking Smoking tobacco [...] a prescription, and some you can buy tlyr-ope-jhqvavd. Some medicines may contain a drug called [...] and encourage you. Call a phone quitline (0-131-FYPM-NOW), reach out to support groups, or work [...] 11/18/2009 Document Revised: 04/11/2019 Document Reviewed: 04/12/2019 [employer] Patient Education 2020 [employer]. Colonoscopy, Adult, Care After This sheet gives [...] are soft and easy to digest. Take jdxs-dng-ufcvfyz or prescription medicines only as told by [...] 02/24/2011 Document Revised: 11/22/2017 Document Reviewed: 10/16/2016 [employer] Patient Education 2020 [employer]. Monitored Anesthesia Care, Care After These instructions [...] before eating solid foods. General instructions Take upfc-lih-oxdvwlm and prescription medicines only as told by [...] 05/14/2016 Document Revised: 04/22/2018 Document Reviewed: 05/14/2016 [employer] Patient Education 2020 [employer] Additional Information VACCINATE! IT SAVES LIVES! Members of the community who have not yet received the COVID-19 vaccine and would like to receive it can visit one of [facility] vaccine clinics. There are many vaccine clinic locations within the [facility]. For locations and available times, please visit [email or web address] It is important to note that some COVID mobile vaccine clinics are held outdoors and may be canceled in rainy or stormy conditions. To learn more about pediatric vaccinations (ages 5-11), we invite you to visit the [facility] webpage. [email or web address]/[email or web address] [email or web address] learn more about the COVID-19 vaccine, we invite you to visit the CDC website for a list of frequently asked questions.https://www.cdc.gov/coronavirus/2019-ncov/vaccines/faq.html [facility] Patient Portal Access Instructions: Stay connected with your healthcare team and access your personal medical information anytime with the [facility] Patient Portal. Please follow the directions below to create your [facility] account: 1.Access the email account you provided upon registration to the hospital/physician office.2.Look for an invitation email from [facility].3.Open the email and access the invitation link: AcceptInvitation to [facility].4.Fill in the required richardson to create your account. To access your account, visit [email or web address]. Click the blue button labeled Access Patient [...] who you will allowto register on the [facility] Patient Portal for access to your information. You can also access the [facility] Patient Portal on the [facility] raiza. Simply click on Patient Portal and then log into your account. If you would like to receive a full copy of your medical records, please contact the [facility] Medical Records Department by calling [phone], Sunday through Sunday between 8 a.m. and [...] Call your local pharmacy or go to [email or web address] to find one close to you.3.Make use of household items: Use cat litter or old coffee grounds to dispose medications if other options arenot available. Mix your drugs with these household products, seal them in an airtight container andthrow it into the garbage. Call [facility]: [phone] to be sure your drugs can be [...] Care After Diverticulosis Steps to Quit Smoking, Uybk-fl-Poco Colonoscopy, Adult, Care After, Ycph-fe-Tpkj Monitored Anesthesia Care, Care After Medication Leaflets My discharge plan and instructions have been reviewed and explained to me and I,DONALDO ZHAO understand my current condition and have read and understand these discharge instructions. I have received a written copy of the plan/instructions. If I have questions, I am aware that I should contact my doctor. Patient/Broadloom Weaver Signature: Date/Time: Relationship to Patient: Witness Name/Signature: Date/Time: [facility] Note [place] ADMISSION HISTORY AND PHYSICIAL CHIEF COMPLAINT: HISTORY OF PRESENT ILLNESS: REVIEW OF SYSTEMS: ACTIVE PROBLEMS: (30) Arthritis, rheumatoid ([id number]) Colon polyps ([id number]) COPD - Chronic obstructive pulmonary disease (629889398) COVID-19 (7935057669) Elevated TSH (5900348857) Essential hypertension (20585944) GERD (gastroesophageal reflux disease) (775088749) Glasses (6077372277) Hard of hearing (000108145) History of anal cancer (3402216946) Hypothyroidism (43425251) Increased frequency of urination (409498106) Insomnia (854414227) 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 (147509659) Long-term current use of proton pump inhibitor therapy (1268856501) Major depressive disorder, recurrent (768442557) On supplemental oxygen by nasal cannula (9079772872) Osteopenia (490826791) Prolapse, uterovaginal (36620739) Restless leg syndrome (84195787) Rheumatoid nodules (76573W1Q-N05T-4307-057V-6O53M7D40SQT) Right hip pain (60622921) Sebaceous cyst (7114114385) Shortness of breath on exertion (392663142) Snores (1313077852) SOBOE (shortness of breath on exertion) (7O44H91B-8PN1-4ZHA-1D3S-70EXB98748ET) Tobacco use (3956238410) Urinary incontinence (5814403892) Vertigo, some tinnitus and hearing loss (9161648138) Vitamin D deficiency (94305541) MEDICATIONS: Active Inpt Meds: None Active PRN Meds: None One Time Meds: None Active IV Meds: Lactated Ringers Infusion 1,000 mL (LR 1,000 mL) Start: 03/26/23 9:39:00 EST, Rate: 50 mL/hr, 03/26/23 9:39:00 EST ALLERGIES: (1) Duricef FAMILY HISTORY: SOCIAL HISTORY: PHYSICAL EXAM: VITALS: DmiusyEveaYINpggrBRDeO4JYD5TucaKo(kg) 03/26 09:4836.7--896284 2.0L/m003/26 99.5 24 Hr Tmax: 36.7 at [...] PATRICIA STEVENS MD on 03/26/2023 09:[address] [facility]02-19-2024 Anesthesiology Consult note Patient: DONALDO ZHAO Age: 68 years Sex: Female : 1955 Associated Diagnoses: None Author: LAZARO RENO APRN-KIMBERLEE Preoperative Information Anesthesia history Patient's history: negative. Family's history: negative. Health Status Allergies: Allergic Reactions (Selected) Severity Not Documented Duricef- Swelling and hives., Allergies (1) ActiveReaction Duricefswelling Current medications: (Selected) Inpatient Medications Ordered LR 1,000 mL: 50 mL/hr, Intravenous Prescriptions Prescribed Baggs 325- 5 mg oral tablet: 1 tab(s), Oral, q6hr, for 30 day(s), Goal is #8 per month or less, 10 tab(s), 0 Refill(s) Baggs 325- 5 mg oral tablet: 1 tab(s), [...] Hair Skin and Nails: Oral, qDay, from [employer], 0 Refill(s) K2 Plus D3: 0 Refill(s) [...] list: Medical Arthritis, rheumatoid / SNOMED CT [id number]-D70268Q07665 / Confirmed Colon polyps / SNOMED CT 62X9G0G6-31C7-32I9-5V96-379615B4ZV2N / Confirmed COPD - Chronic obstructive pulmonary disease / SNOMED CT 164010055 / Confirmed COVID-19 / SNOMED CT 0927300001 / Confirmed Shortness of breath on exertion / SNOMED CT 090952246 / Confirmed Essential hypertension / SNOMED CT 45450962 / Confirmed GERD (gastroesophageal reflux disease) / SNOMED CT 152976252 / Confirmed Glasses / SNOMED CT 1451268883 / Confirmed Hard of hearing / SNOMED CT 767933630 / Confirmed Right hip pain / SNOMED CT 17053774 / Confirmed History of anal cancer / SNOMED CT 3079462588 / Confirmed Hypothyroidism / SNOMED CT 34901347 / Confirmed Increased frequency of urination / SNOMED CT 126250128 / Confirmed Insomnia / SNOMED CT 249956680 / Confirmed Long-term current use of proton pump inhibitor therapy / SNOMED CT 9863870153 / Confirmed Osteopenia / SNOMED CT 959392950 / Confirmed On supplemental oxygen by nasal cannula / SNOMED CT 3089915416 / Confirmed 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 / SNOMED CT 652138199 / Confirmed Elevated TSH / SNOMED CT 6080809477 / Confirmed Major depressive disorder, recurrent / SNOMED CT 042421025 / Confirmed Restless leg syndrome / SNOMED CT 74595132 / Confirmed Rheumatoid nodules / SNOMED CT 58967T5T-R13P-6851-931L-0T63I1S53TQB / Confirmed Sebaceous cyst / SNOMED CT 8535842567 / Confirmed Snores / SNOMED CT 3377946349 / Confirmed SOBOE (shortness of breath on exertion) / SNOMED CT 3L77S69W-8VK3-1TPO-3N4U-27HIZ34366UW / Confirmed Urinary incontinence / SNOMED CT 9190732994 / Confirmed Prolapse, uterovaginal / SNOMED CT 60626943 / Confirmed Vertigo, some tinnitus and hearing loss / SNOMED CT 1461189732 / Confirmed Vitamin D deficiency / SNOMED CT 46157500 / Confirmed, Active Problems (30) Arthritis, rheumatoid Colon polyps COPD - Chronic obstructive pulmonary disease COVID-19 Elevated TSH Essential hypertension GERD (gastroesophageal reflux disease) Glasses Hard of hearing History of anal cancer Hypothyroidism Increased frequency of urination Insomnia 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 Family History: Patient was adopted. Alzheimer's disease Mother (Ada (biological mother) Marcos, ) Procedure history: Colonoscopy (331046712) on 05/06/2014 at 59 Years. H/O: tubal ligation (065804571) in 1993 at 38 Years. section (75162133) in 1985 at 30 Years. History of appendectomy (9556295742) in 1959 at 4 Years. Tonsillectomy with adenoidectomy (53820832) in 9 at 3 Years. Elbow (056572312). Comments: 05/06/2014 9:19 KEERTHI Barr nodules removed Anal carcinoma (526472279). Comments: 03/26/2023 9:36 Iona Nash RN 9 YEARS AGO Social History Social & Psychosocial Habits Alcohol 03/26/2023 Use: Never Employment/School 02/09/2023 Status: Disabled by her rheumatoid arthritis and chronic lung disease, Retired Substance Abuse 03/26/2023 Use: Current Type: Marijuana Frequency: Daily Tobacco 03/26/2023 Tobacco Use: 10 or more cigarettes (1/ Type: Cigarettes Home/Environment 03/26/2023 Primary Director Of Instruction: self, lives by herself, she has 1 son, Panfilo. 2 grandchildren. [facility] [employer] [place] Nutrition/Health 03/26/2023 Caffeine intake amount: 4 servings [...] 9:44 EST IV Present Present Allergies Yes Dive Master On Yes Colon Prep Results Excellent Consent [...] Void 03/26/2023 9:45 . Assessment and Plan [place] Society of Anesthesiologists (ASA) physical status classification: Class IV. Anesthetic Preoperative Plan Anesthetic technique: MAC. Postoperative pain management: Per surgeon. Risks discussed: nausea, vomiting, hypotension, allergic reaction, serious complications. Informed consent: signed by patient. Digitally Signed by LAZARO RENO on 03/26/2023 09:[address] [facility]01-19-2024 Note Specimen Description: Liquid Prep w/ HPV Specimen: Cervical/Endocervical Screening or Diagnostic: Screening [facility] 01-19-2024 Note Specimen Description: Liquid Prep w/ HPV Specimen: Cervical/Endocervical Screening or Diagnostic: Screening [facility] 01-19-2024 Note Specimen Description: Liquid Prep w/ HPV Specimen: Cervical/Endocervical Screening or Diagnostic: Screening [facility] 01-19-2024 Note Specimen Description: Liquid Prep w/ HPV Specimen: Cervical/Endocervical Screening or Diagnostic: Screening [facility] 01-19-2024 Note Specimen Description: Liquid Prep w/ HPV Specimen: Cervical/Endocervical Screening or Diagnostic: Screening [facility] 01-19-2024 Note Specimen Description: Liquid Prep w/ HPV Specimen: Cervical/Endocervical Screening or Diagnostic: Screening [facility] 01-19-2024 Note Specimen Description: Liquid Prep w/ HPV Specimen: Cervical/Endocervical Screening or Diagnostic: Screening [facility] 01-19-2024 Note Specimen Description: Liquid Prep w/ HPV Specimen: Cervical/Endocervical Screening or Diagnostic: Screening [facility] Evaluation + Plan note Future Appointments Appointment Date:03/21/2021 04:15:00 PM Scheduled Provider:AYLA MANE MD Location:[facility] Appointment Type:PC OV Follow Up [facility] Evaluation + Plan note Future Appointments Appointment Date:07/18/2021 03:00:00 PM Scheduled Provider:AYLA MANE MD Location:[facility] Appointment Type:PC OV [facility] Evaluation + Plan note Future Appointments Appointment Date:05/05/2022 03:00:00 PM Scheduled Provider:BLADE BOND DO Location:[facility] Appointment Type:PC OV [facility] Evaluation + Plan note Future Appointments Appointment Date:05/12/2022 03:30:00 PM Scheduled Provider:BLADE BOND DO Location:[facility] Appointment Type:PC OV Appointment Date:06/19/2022 02:30:00 PM Scheduled Provider:BLADE BOND DO Location:[facility] Appointment Type:PC OV Future Scheduled Tests Laboratory* Thyroid Antibodies 05/05/22 * Thyroid Stimulating Hormone 05/05/22 * Free T4 05/05/22 * A1C Hemoglobin 05/05/22 * Complete Blood Count 05/05/22 * Free T3 05/05/22 * Lipid Profile 05/05/22 * Albumin/Creatinine Ratio, Random Urine 05/05/22 * Vitamin D Level 05/05/22 * Complete Metabolic Panel 05/05/22 * anti-Thyroid Peroxidase 05/05/[address] [facility] Evaluation + Plan note Future Appointments Appointment Date:06/19/2022 02:30:00 PM Scheduled Provider:BLADE OBND DO [facility] Appointment Type: OV Future Scheduled Tests Laboratory* Albumin/Creatinine Ratio, Random Urine 05/05/[address] [facility] Evaluation + Plan note Future Appointments Appointment Date:03/27/2023 01:30:00 PM Scheduled Provider:ESHA HAIDER MD Location:[facility] Appointment Type: OV Appointment Date:04/02/2023 01:30:00 PM Scheduled Provider:BLADE BOND DO [facility] Appointment Type:PC OV Appointment Date:06/18/2023 03:00:00 PM Scheduled Provider:BLADE BOND DO [facility] Appointment Type:PC Wellness Medicare Future Scheduled [...] 12/08/22 * CT Thorax w/ Contrast 01/02/[address] [facility] evaluation + Plan note Future Appointments Appointment Date:09/03/2023 02:30:00 PM Scheduled Provider:BLADE BOND DO [facility] Appointment Type: OV Future Scheduled Tests Laboratory* .CCLLDL-Cholesterol, Direct 07/06/[address] [facility] evaluation + Plan note Future Appointments Appointment Date:11/16/2023 12:30:00 PM Scheduled Provider:BLADE BOND DO [facility] Appointment Type:PC OV Future Scheduled Tests Laboratory* .CCLLDL-Cholesterol, Direct 07/06/23 * Basic Metabolic Panel 09/03/23 * Phosphorus Level 09/03/23 * Thyroid Stimulating Hormone 09/03/23 * Free T4 09/03/23 Radiology* CT Thorax w/o Contrast 09/03/[address] [facility] evaluation + Plan note Future Appointments Appointment Date:03/11/2024 03:30:00 PM Scheduled Provider:BLADE BOND DO Location[facility] Appointment Type:PC OV Future Scheduled Tests Laboratory* .CCLLDL-Cholesterol, Direct 07/06/23 Radiology* CT Thorax w/o Contrast 09/03/[address] [facility] Evaluation + Plan note Future Appointments Appointment Date:03/11/2024 03:45:00 PM Scheduled Provider:BLADE BOND DO Location[facility] Appointment Type:PC OV Diagnostic Tests Pending * Free T4 03/07/24 Future Scheduled Tests Laboratory* .CCLLDL-Cholesterol, Direct 07/06/23 Radiology* CT Thorax w/o Contrast 09/03/[address] [facility] Evaluation + Plan note Future Appointments Appointment Date:07/04/2024 01:30:00 PM Scheduled Provider:BLADE BOND DO Location:[facility] Appointment Type:PC OV Future Scheduled Tests Laboratory* TSH with Reflex to FT4 04/02/24 * .CCLLDL-Cholesterol, Direct 07/06/23 Radiology* CT Thorax w/o Contrast 09/03/[address] [facility] evaluation + Plan note Future Appointments Appointment Date:09/08/2024 02:00:00 PM Scheduled Provider:BLADE BOND DO Location:[facility] Appointment Type:PC OV Pre Op Appointment Date:10/03/2024 01:30:00 PM Scheduled Provider:BLADE BOND DO Location:[facility] Appointment Type:PC OV Future Scheduled Tests Laboratory* .CCLLDL-Cholesterol, Direct 07/06/23 Radiology* CT Thorax w/o Contrast 09/03/[address] [facility] Evaluation + Plan note Future Appointments Appointment Date:10/03/2024 01:30:00 PM Scheduled Provider:BLADE BOND DO Location:[facility] Appointment Type:PC OV Appointment Date:10/07/2024 03:00:00 PM Scheduled Provider:BLADE BOND DO Location:[facility] Appointment Type:PC OV Post Op Future Scheduled Tests Laboratory* .CCLLDL-Cholesterol, Direct 07/06/[address] [facility] Evaluation note* Diagnosis Onset Date Resolution Status Dyspnea acute Lung nodule acute Rheumatoid arthritis [facility] Work Phone: Evaluation note* Diagnosis Onset Date Resolution Status Respiratory failure with hypoxia acute Tobacco abuse acute Asthma-COPD overlap syndrome chronic Rheumatoid arthritis [facility] Work Phone: Evaluation note* Diagnosis Onset Date Resolution Status Respiratory failure with hypoxia acute Asthma-COPD overlap syndrome [facility] Work Phone: Evaluation note* Diagnosis Onset Date Resolution Status Respiratory failure with hypoxia acute Asthma-COPD overlap syndrome chronic Rheumatoid arthritis chronic Sinus infection chronic Tobacco abuse [facility] Work Phone: Evaluation noteNo assessment information available [facility] Work Phone: Hospital course Narrative No data available for this section [facility] Hospital Discharge instructions No data available for this section [facility] Progress note No data available for this section [facility] Reason for referral (narrative)No reason for referral [facility] Work Phone: Chief Complaint and Reason for [...] NICOTINE DEPENDENCE April 25, 2024 1:5 9pm Chief Complaint Admit Date NICOTINE DEPENDENCE April 25, 2024 1:5 9pm 5 m fu May 01, 2024 3:1 1pm J44.9 - Chronic obstructive pulmonary di sease, uns July 10, 2024 12:36pm Reason for Visit Admit Date Asthma-COPD overlap syndrome May 01, 2024 3:11pm Respiratory failure with hypoxia April 062024 3:11pm Rheumatoid arthritis May 01, 2024 3: 11pm Tobacco abuse May 01, 2024 3:1 1pm Chief Complaint Admit Date 5 m fu May 01, 2024 3:1 1pm J44.9 - Chronic obstructive pulmonary di sease, uns July 10, 2024 12:36pm J44.9 - Chronic obstructive pulmonary di sease, uns July 10, 2024 12:59pm J44.9 - Chronic obstructive pulmonary di sease, uns August 21, 2024 1:24pm J44.9 - Chronic obstructive pulmonary di sease, uns August 22, 2024 12:48pm Family History No Family History Records Found [...] Date/ Time Advance Directives No April 18, 2:55pm Living Will No April 18, 2021 2:55pm Power of Brazer Crawler Torch No April 18 2:55pm Advance Directive Response Recorded Date/ Time Advance Directives No April 18, 2 022 1:55pm Living Will No December 30, 023 12:55pm Power of [employer]ch No December 30, 2022 12:55pm Advance Directive Response Recorded Date/ Time Advance Directives No April 18, 2 022 2:55pm Living Will No June 18, 2023 6 :32pm Power of [employer] Craw[employer]ch No June 18, 2023 6:32pm Advance Directive Response Recorded Date/ Time Living Will No December 30, 023 1:55pm Do you have a Healthcare Power of B[employer]er Crawler Torch? No December 30, 2022 1:55pm Advance Directives No April 18, 2 022 2:55pm Advance Directive Response Recorded Date/ Time Living Will No June 18, 2023 6 :32pm Do you have a Healthcare Power of [employer] Craw[employer] Torch? No June 18, 2023 6:32pm Living Will No December 30 023 1:55pm Do you have a Healthcare Power of [employer]razer Crawler Torch? No December 30, 2022 1:55pm Advance Directives No April 18, 2 022 2:55pm Advance Directive Response Recorded Date/ Time Living Will No June 18, 2023 6 :32pm Do you have a Healthcare Power of [employer] Craw[employer] Torch? No June 18, 2023 6:32pm Advance Directives No April 18, 022 2:55pm Summary Purpose Additional Source Comments Care Team (unrecognized sect ion and content) Team Status: Active Member Role Status Dates Dr. Ayla Mane MD Family Provider Active Dr. Blade Bond DO Primary Care Provider Active Team Status: Inactive Member Role Status Dates Dr. Blade Bond DO Primary Care Provider, Referrin g Provider Active Glendy Ugarte LETTER SORTING MACHINE OPERATOR, LETTER SORTING MACHINE OPERATOR-C Attending Provider Active Team Status: Inactive Member Role Status Dates Dr. Blade Bond DO Primary Care Provider Active Glendy Ugarte LETTER SORTING MACHINE OPERATOR, LETTER SORTING MACHINE OPERATOR-C Attending Provider, Referrin g Provider Active [...] Dr. Blade Bond DO Primary Care Provider, Attendin g Provider [...] 2024 End: April 25, 2024 Glendy Ugarte LETTER SORTING MACHINE OPERATOR, LETTER SORTING MACHINE OPERATOR-C Attending Provider Active Start: April 25, 2024 End: April 25, 2024 Glendy Ugarte LETTER SORTING MACHINE OPERATOR, LETTER SORTING MACHINE OPERATOR-C Referring Provider Active Start: April 25, 2024 End: April 25, 2024 Team Status: Inactive Member Role Status Dates Dr. Blade Bond DO Primary Care Provider Active Start: May 01, 2024 End: May 01, 2024 Dr. Blade Bond DO Referring Provider Active Start: May 01, 2024 End: May 01, 2024 Glendy Ugarte LETTER SORTING MACHINE OPERATOR, LETTER SORTING MACHINE OPERATOR-C Attending Provider Active Start: May 01, 2024 End: May 01, 2024 Team Status: Inactive Member Role Status Dates Dr. Blade Bond DO Primary Care Provider Active Start: July 10, 2024 End: July 10, 2024 Glendy Ugarte LETTER SORTING MACHINE OPERATOR, LETTER SORTING MACHINE OPERATOR-C Attending Provider Active Start: July 10, 2024 End: July 10, 2024 Glendy Ugarte LETTER SORTING MACHINE OPERATOR, LETTER SORTING MACHINE OPERATOR-C Referring Provider Active Start: July 10, 2024 End: July 10, 2024 Team Status: Active Member Role/Relationship Status Dates Dr. Blade Bond DO Primary Care Provider Active Team Status: Inactive Member Role/Relationship Status Dates Dr. Blade Bond DO Primary Care Provider Active Start: May 01, 2024 End: May 01, 2024 Dr. Blade Bond DO Referring Provider Active Start: May 01, 2024 End: May 01, 2024 Glendy Ugarte LETTER SORTING MACHINE OPERATOR, LETTER SORTING MACHINE OPERATOR-C Attending Provider Active Start: May 01, 2024 End: May 01, 2024 Team Status: Inactive Member Role/Relationship Status Dates Dr. Blade Bond DO Primary Care Provider Active Start: July 10, 2024 End: July 10, 2024 Glendy Ugarte LETTER SORTING MACHINE OPERATOR, LETTER SORTING MACHINE OPERATOR-C Attending Provider Active Start: July 10, 2024 End: July 10, 2024 Glendy Ugarte LETTER SORTING MACHINE OPERATOR, LETTER SORTING MACHINE OPERATOR-C Referring Provider Active Start: July 10, 2024 End: July 10, 2024 Team Status: Active Member Role/Relationship Status Dates Dr. Blade Bond DO Primary Care Provider Active Start: July 10, 2024 Dr. Flaco Tse DO Attending Provider Active S tart: July 10, 2024 Glendy Ugarte LETTER SORTING MACHINE OPERATOR, LETTER SORTING MACHINE OPERATOR-C Referring Provider Active Start: July 10, 2024 Team Status: Inactive Member Role/Relationship Status Dates Dr. Blade Bond DO Primary Care Provider Active Start: August 21, 2024 End: August 21, 2024 Glendy Ugarte LETTER SORTING MACHINE OPERATOR, LETTER SORTING MACHINE OPERATOR-C Attending Provider Active Start: August 21, 2024 End: August 21, 2024 Glendy Ugarte LETTER SORTING MACHINE OPERATOR, LETTER SORTING MACHINE OPERATOR-C Referring Provider Active Start: August 21, 2024 End: August 21, 2024 Team Status: Active Member Role/Relationship Status Dates Dr. Blade Bond DO Primary Care Provider Active Start: August 22, 2024 Glendy Ugarte LETTER SORTING MACHINE OPERATOR, LETTER SORTING MACHINE OPERATOR-C Referring Provider Active Start: August 22, 2024 Glendy Ugarte LETTER SORTING MACHINE OPERATOR, LETTER SORTING MACHINE OPERATOR-C Other Provider Active Start: August 22, 2024 Dr. Flaco Tse DO Attending Provider Active S tart: August 22, 2024 Goals (unrecognized section and content) Goals may be documented in a n alternate section INFORMATION SOURCE (unrecogn ized section and content) DATE CREATED AUTHOR 10/06/2023 [facility] DATE CREATED AUTHOR AUTHOR'S ORGANIZ ATION 09/10/2024 [facility] DATE CREATED AUTHOR AUTHOR'S ORGANIZ ATION 09/21/2024 [facility] FOR RECORDS PERTAINING TO PATIENTS WHO ARE [...] BE BASED ON THE PRIMARY CLINICAL RECORDS. [facility] [employer] [facility]. provides no warranty or guarantee of the accuracy or completeness of information in this document.
[2024-09-22] MEDS: Lactated Ringers 1,000 ML 15 ML IV (07:32)
[2024-09-22] MEDS: Magnesium 1 GM over 15 mins IV (07:32)
--- NOTE | 2024-09-22 07:45 | RAD_ITS ---
PROCEDURE: Intraoperative fluoroscopic services. 09/22/2024 REASON FOR EXAM: ERAS,TOTAL HIP ANTERIOR APPROACH TECHNIQUE: Intraoperative fluoroscopic services provided for total hip replacement. Radiation dose: Fluoroscopy 6.4 seconds. 0.84 mGy. COMPARISON: None FINDINGS: Intraoperative fluoroscopic services provided for right hip replacement. RAD/Hip 1 view with Pelvis IMPRESSION: Intraoperative fluoroscopic services provided for right hip replacement. Reading Location: [facility]
--- NOTE | 2024-09-22 08:12 | PRE.ANES_ITS ---
ASA Classification* ASA Classification ASA Classification: 3 Assessment & Plan Anesthesia* Anesthesia Assessment Anesthesia Assessment: Discussed sedation and/or anesthesia options, risks, benefits, and alternatives with patient/parents/legal guardian/POA. Questions invited. The patient/parents/legal guardian/POA seems to understand and agrees to proceed with anesthesia plan. Reviewed the physical assessment, medical history, allergy history and patient home medications list prior to surgery/procedure/anesthetic and documented any changes. Performed airway and anesthesia risk assessments. Anesthesia Type Anesthesia Type: Spinal History Source History Obtained from:: Patient and Chart Anesthesia Focused Assessment* Temperature: 97.5 F Pulse Rate: 64 Blood Pressure: 128/82 Respiratory Rate: 18 Pulse Ox: 99 Oxygen Delivery Method: Nasal Cannula Oxygen Flow Rate (L/min): 1.5 Airway Assessment Mouth opens: >3 cm Mallampati Score: IV Teeth Condition: Missing (Patient is missing. Remaining teeth are tight.) Neck Range of motion (ROM): Limited ROM (Somewhat Decreased) Labs Anesthesia Preop lab: CBC WBC 10.3 K/mm3 (4.4-11.0) 06/18/23 17:58 06/18/23 RBC 4.37 M/mm3 (4.2-5.4) 06/18/23 17:58 06/18/23 Hgb 11.5 g/dL (12.0-15.0) L 06/18/23 17:58 4 Hct 37.4 % (37-47) 06/18/23 17:58 06/18/23 Plt Count TNP 06/18/23 17:58 06/18/23 CHEMISTRY Potassium 4.3 mmol/L (3.5-5.1) 06/18/23 17:58 06/18/23 Sodium 135 mmol/L (136-145) L 06/18/23 17:58 06/18/23 Magnesium 2.4 mg/dL (1.5-2.2) H 09/19/24 12:34 09/19/24 BUN 12 mg/dL (7-18) 06/18/23 17:58 06/18/23 Creatinine 0.67 mg/dL (0.55-1.02) 06/18/23 17:58 06/18/23 Glucose 125 mg/dL (74-106) H 06/18/23 17:58 06/18/23 COAG PT 12.0 SECONDS (11.7-14.9) 01/16/21 08:50 Pre-Assessment Diagnosis/Proposed Procedure Planned Operative Procedure(s): (R) Total Hip Anterior Approach Anesthesia History Anesthesia History - gold nib grinder: Anesthesia History - gold nib grinder Hx Hospitalization No 09/01/24 15:37 Any Problems With Anesthesia No 09/01/24 15:37 Cholinesterase deficiency No 09/01/24 15:37 You/Your Family Experience No 09/01/24 15:37 fever (hyperthermia) with Relationship Recent Exposure to Contagious No 09/22/24 07:36 Disease Does patient have nerve No 09/01/24 15:37 stimulator Patient instructed to have device shut off --Does patient have Pacemaker No 09/22/24 07:36 or ICD? When Was Last Pacemaker Check QUESTION #4 FULL TEXT: You/Your Family Experience fever (hyperthermia) with Anesthesia Last Oral Intake Last Oral intake: Last Oral Intake NPO since 05:30 09/22/24 07:36 Meds taken in AM with sips of Yes 09/22/24 07:36 water? Meds patient instructed to IRBESARTAN, SYNTHROID, 09/22/24 07:36 take am of surgery PROTONIX AND ZOLOFT. trelegy inhaler Any additional information?: Yes Meds taken in AM with sips of water?: Yes PONV PONV - gold nib grinder: PONV - gold nib grinder Female Yes 09/01/24 15:37 HX of Motion Sickness Yes 09/01/24 15:37 HX of N/V After Surgery No 09/01/24 15:37 Non-Smoker No 09/01/24 15:37 Duration of Surgery greater Yes 09/01/24 15:37 than 60 minutes Number of Risk Factors 3 09/01/24 15:37 PONV Score Moderate Risk 09/01/24 15:37 Height & Weight Height & Weight: Anesthesia: Height & Weight Height 5 ft 5 in 09/22/24 07:36 Weight: 92.4 kg 09/22/24 07:36 Body Mass Index (BMI) 33.9 09/22/24 07:36 Respiratory Assessment Respiratory Assessment - gold nib grinder: Respiratory Tract Infection Hx - gold nib grinder Hx Respiratory Tract Infection No 09/01/24 15:37 STOP Sleep Apnea STOP Sleep Apnea - gold nib grinder: STOP Sleep Apnea - gold nib grinder Hx Hypertension Yes 09/01/24 15:37 Hx Sleep Apnea No 09/01/24 15:37 CPAP No 04/18/21 14:55 BIPAP No 04/18/21 14:55 Do you snore loudly (louder No 09/01/24 15:37 than talking or can be heard Do you often feel tired/ No 09/01/24 15:37 fatigued/ sleepy during daytime? Has anyone observed you stop No 09/01/24 15:37 breathing during sleep? STOP Results Negative 09/01/24 15:37 QUESTION #5 FULL TEXT : Do you snore loudly (louder than talking or can be heard through closed doors)? 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 Specify any problems Hx of Preganancy in last 3 No 09/01/24 15:37 Months Nurse Filling Out Transfusion JZOLLINGE 09/01/24 15:37 & Questions: Date: 09/01/24 09/01/24 15:37 Time: 15:39 09/01/24 15:37 Patient unable to answer at this time (ie. confused, unrespo /Reproduction History /Reproductive History - gold nib grinder: /Reproductive Hx- gold nib grinder Hx Now No 09/01/24 15:37 Gestational Age (in weeks): EDC: Hx Hx Para Hx Section SAB No 09/01/24 15:37 Active Medications Active Medications: Current Medications Generic Name Dose Route Start Last Admin Trade Name Ronit PRN Reason Stop Dose Admin Acetaminophen 1,000 mg 09/22/24 14:00 Acetaminophen 500 Mg Tablet PO Q8 [facility] Enteral Nutritional Formula 237 ml 09/22/24 08:00 Ensure Surgery 237 Ml Liquid PO TIDCM [facility] Famotidine 20 mg 09/22/24 10:00 Famotidine 20 Mg Tablet PO DAILY [facility] Lactated Ringer's 1,000 mls @ 15 mls/hr 09/22/24 07:00 09/22/24 07:32 IV 15 mls/hr .Q48H [facility] Administration Cefazolin Sodium 1 gm in 50 mls @ 100 mls/hr 09/22/24 07:00 IV 09/22/24 15:29 Q8H [facility] Insulin Human Lispro 1 - 6 unit 09/22/24 05:55 Insulin Lispro 100 Unit/Ml Insuln.Pen SC Q4H PRN PRN BG>/= 180, SEE PROTOCOL Protocol Ketorolac Tromethamine 15 mg 09/22/24 06:58 Ketorolac 15 Mg/Ml Vial IV 09/23/24 07:00 Q6H PRN PRN Pain Score 1-10 Meloxicam 7.5 mg 09/24/24 10:00 Meloxicam 7.5 Mg Tablet PO BID [facility] Morphine Sulfate 2 - 4 mg 09/22/24 06:58 Morphine 2 Mg/Ml Syringe IV Q2H PRN PRN Pain Score 4-10 Ondansetron HCl 4 mg 09/22/24 06:58 Ondansetron 4 Mg/2 Ml Vial IV Q8H PRN PRN NAUSEA Oxycodone HCl 2.5 mg 09/22/24 06:58 Oxycodone 5 Mg Tablet PO Q4H PRN PRN Pain Score 4-10 Promethazine HCl 12.5 mg 09/22/24 06:58 Promethazine 25 Mg/Ml Syringe IM Q6H PRN PRN NAUSEA/VOMITING Protocol Rivaroxaban 10 mg 09/23/24 06:00 Rivaroxaban 10 Mg Tablet PO DAILY@0600 [facility] Senna/Docusate Sodium 2 tablet 09/22/24 10:00 Senna/Docusate Sodium 1 Tablet PO BID DAVONTE PFSH Medical History Hx of uterine prolapse Wears glasses Loose, teeth Marijuana use Thyroid disease History of hiatal hernia History of diverticulitis Former smoker Emphysema, unspecified Anxiety and depression Nonobstructive atherosclerosis of coronary artery Elevated troponin GERD (gastroesophageal reflux disease) Hypertension COPD (chronic obstructive pulmonary disease) Hypothyroidism Rheumatoid arthritis Home Medications ?Medication ?Instructions ?Recorded ?Last Taken ?Type hydrocodone-acetaminophen 5-325mg 1 tab PO Q6H PRN PRN Pain 07/08/15 09/21/24 History 5mg-325mg naproxen sodium 220 mg tablet 440 mg PO DAILY Pain 03/2309/08/24 History (Aleve) levothyroxine 25 mcg tablet 75 mcg PO DAILY thyroid 09/22/24 05:30 History pantoprazole 40 mg tablet,delayed 40 mg PO DAILY reflu x 04/23/19 09/22/24 05:30 History release sertraline 100 mg tablet 200 mg PO DAILY anxiety and 01/18/21 09/22/24 05:30 History depression irbesartan 300 mg tablet 300 mg PO DAILY 12/30/22 05:30 History albuterol sulfate 90 mcg/actuation 2 puff inhalation Q 4H PRN PRN 11/29/23 09/21/24 Rx aerosol inhaler (Ventolin HFA) Shortness of breath, wh eezing ##3 aspirin 81 mg tablet,delayed 81 mg PO QDAY 11/29/23 History release fluticasone fur. 200 mcg-umeclid 1 inh inhalation CLAUDIA Y #3 ea 11/29/23 09/22/24 05:30 Rx 62.5 mcg-vilant 25 mcg inhalat.powder (Trelegy Ellipta) alendronate 70 mg tablet 70 mg PO QWEEK 05/01/2409/05 History multivitamin (Daily Multi-Vitamin 1 tab PO DAILY 09/0109/19/24 History tablet) multivitamin with minerals 1 tab PO DAILY 09/01/24 History (Hair,Skin and Nails tablet) vitamin D3 125 mcg (5,000 1 cap PO .QD 09/01/24 History unit)-vitamin K2 180 mcg capsule (K2-D3 Max) Allergy/AdvReac Type Severity Reaction Status Date / Time cefadroxil hydrate (From Allergy Itching Verified 09/22/24 07:31 Noemi) Surgical History (Updated 09/22/24 @ 08:[address] Angelito Rosado MD) Anal squamous cell carcinoma Hx of colonoscopy History of left heart catheterization (01/17/21) H/O section H/O hysterectomy with oophorectomy Hx of appendectomy Social History household members: none Smoking Status: Current every day smoker tobacco type: cigarettes Tobacco: How many years used: 50 alcohol intake: current alcohol intake frequency: holidays/special occasions only substance use type: does not use and marijuana Review of Systems (Anesthesia) ROS Narrative System reviewed and no additional complaints, except as documented.
[2024-09-22] MEDS: Cefazolin 1 GM/5 ML Vial 2 GM IV (08:25)
[2024-09-22] MEDS: Midazolam 2 MG/2 ML Syringe IV (08:26)
[2024-09-22] MEDS: Lidocaine 1% (5 ml sdv) 5 ML Vial IV (08:43)
[2024-09-22] MEDS: TXA 2000mg in NS 100ml (Placed in Wound) OPERA.SITE (09:51)
[2024-09-22] MEDS: JPS (Morphine 10mg/ml) OPERA.SITE (09:52)
--- NOTE | 2024-09-22 10:12 | OP.PCM_ITS ---
Operative Report (Standard) Operative Information Date of Procedure: 09/22/24 Pre-Operative Diagnosis: Right hip rheumatoid arthritis with associated osteoarthritis Post-Operative Diagnosis: Right hip rheumatoid arthritis associated osteoarthritis Surgery/Procedure Performed: Right direct anterior minimally invasive total replacement plaster maker: Yes Extracorporeal Technician: Beckie Chester Tasks completed by workers compensation claims assistant: Other (See body of operative report) Additional perinatal breastfeeding assistant?: Yes Additional Business Machine Operator #2: Cassie Khanna Tasks completed by perinatal breastfeeding assistant #2: Opening, Dissecting tissue, Implanting device and Retracting Additional perinatal breastfeeding assistant?: No Type of Anesthesia: Spinal RN Documented Start/Stop Times: Operation Date: 09/22/24 08:45 Case Time Into Pre-Op 09/22/24 06:53 Anesthesia Start 09/22/24 08:25 Into Room 09/22/24 08:25 Out of Pre-Op 09/22/24 08:25 Procedure Start 09/22/24 09:06 Procedure End 09/22/24 10:31 Anesthesia End 09/22/24 10:36 Out of Room 09/22/24 10:36 Into Recovery 09/22/24 10:40 Out of Recovery 09/22/24 11:27 Procedure Start Time: 09:06 Procedure Stop Time: 10:31 Select all DRAINS/GRAFTS/IMPLANTS that apply: Prosthetic device Prosthetic device details: See body of operative report Special Medications: Ancef Estimated Blood Loss: 350 mL Fluids Replaced: 1500 mL crystalloid Specimen collected: Yes Description of specimen(s) removed: Bony cuts Description of surgery: Components used: 1. Insignia Chatham femoral stem size 6 high off 2. [place]atham trident 2 acetabular shell size 54 mm 3. Se X3 polyethylene E 4. Se Biolox delta 36 mm, -5 mm femoral head Brief history operative indications: 69yo female who failed conservative measures for their hip osteoarthritis. X- rays were consistent with osteoarthritis including joint space narrowing, osteophyte formation and subchondral cysts. Total hip replacement was discussed with the patient with risks and benefits including but not limited to blood loss, DVTs, PEs, neurovascular damage, dislocation, general risks of anesthesia including loss of life. Patient demonstrated an understanding medical clearance is obtained the patient was consented for surgery. Procedure: On the date of procedure the patient's r hip was marked in the preoperative area. Patient was then taken back to the operating room where anesthesia assumed control of the C-spine and airway and administered anesthetic. Patient was transferred to the operating table and placed in the supine position. The hips were placed at the break of the bed and a sacral bump was placed. The R lower extremity was then prepped out in a sterile fashion using chlorhexidine while the surgeon scrubbed. The PA was vital in the positioning of the patient. Upon reentering the room the R lower extremity was draped in the standard orthopedic fashion and the incision was marked. A timeout was called and everyone agreed upon the side, the site, the procedure be performed, antibody given, and patient's identity. At this time incision was made through skin, subcutaneous tissue, and fat down to fascia. The fascia was then incised and the TFL was retracted laterally. A retractor was placed on the lateral border of the femoral neck. Attention was directed to the inferior portion of the approach and all crossing vessels were identified and appropriately coagulated. A retractor was then placed on the medial portion of the femoral neck. The anterior capsule was then cleared of all soft tissue and then H shaped capsulotomy was made. The retractors were then placed inside the capsule. The femoral neck was identified and a cleanup cut was made. At this time a power corkscrew was used to remove the femoral head. Attention was then turned toward the acetabulum where the soft tissues were appropriately retracted and the acetabulum was sequentially reamed to 54 mm. A 54 mm cup was then selected and impacted into place. Acetabular liner was impacted into place and locking mechanism was verified. The position of the acetabular cup was then verified under live fluoroscopy. Attention was then turned to the femur. Soft tissue releases on the medial and lateral femoral neck were appropriately done, the leg was externally rotated and lateralized. A Banda retractor was placed medially and proximally to the greater trochanter this allowed appropriate visualization and exposure of the femoral canal. Rongeour was then used to remove excess lateral bone. A canal finder and entry broach were used to open the proximal canal. Once we verified we were down the femoral canal we subsequently broached up to a size 6 femur. The appropriate neck was placed in the previously selected head was trialed with a -5 mm neck. Traction was pulled and the hip was reduced with internal rotation. Once it was appropriately reduced and stability was checked. There was minimal shuck, equal leg lengths and appropriate stability with hyperextension and external rotation as well as with 90? flexion and internal rotation. Fluoroscopy was then also used to verify the position of the components and leg lengths using the contralateral side for comparison. The trial components were then dislocated the proximal femur was again exposed and the components were removed from the wound. The final components were verified and opened. The wound was copiously irrigated out with normal saline. The acetabulum was checked for any residual debris. The final components were placed and impacted. Traction and internal rotation were again used to reduce the hip. After adequate reduction the hip remained stable with appropriate leg lengths. The final components were once again checked with live fluoroscopy and were found to be satisfactory. The wound was then copiously irrigated with normal saline once more, and hemostasis was obtained. Closure was then done using #1 Vicryl runner to close the fascia. A 2-0 vicryl interuppted sutures were used to close the subcutaneous skin. A 3-0 Monocryl and Steri-Strips were used for final skin closure. A Silverlon dressing was placed. Patient was awakened by anesthesia and transferred to the [facility]. Patient was then transferred to the PACU for recovery. Postoperative plan: Patient will get 24 hours postop antibiotics. Patient will get in-house physical therapy and will be weight-bear as tolerated. Patient will follow up in office in 2 weeks for a wound check and x-rays. Xarelto for DVT prophylaxis due to previous DVT During the course of the procedure the physician tire builder operator (PE) played a vital role. Their intimate knowledge of my steps in the procedure aided in safe and expedient completion of the procedure. The PE played a vital rolls in positioning particularly in obtaining the appropriate positioning of the sacral bump. The PE was also vital in the retraction of soft tissues during the exposure and especially the femoral work as this is a vital part of the procedure to prevent complications and fractures. The PE was also vital and protecting soft tissues during times of bony cuts and reaming. He also played a vital role in closure with my direct supervision. The PE was also important during reduction and dislocation of the joint and trials intraoperatively. Surgical Findings: Stable hip. Equal leg lengths based on radiographs. Stage IV osteoarthritis Complications Complications: No Admit VTE Documentation VTE Present on Admission: No VTE Mechan Device Prophylaxis: SCD's and Thigh High JUNIOR Hose VTE Pharm Prophylaxis ordered?: Yes
--- NOTE | 2024-09-22 10:50 | RAD_ITS ---
PROCEDURE: HIP MIN 2 VIEWS (PORTABLE) 09/22/2024 REASON FOR EXAM: POST OP right total hip arthroplasty TECHNIQUE: Two-view portable postoperative right hip to include a low centered AP pelvis. Laterality: Right COMPARISON: Intraoperative right hip images of earlier on 09/22/2024. RAD/Hip Min 2 Views (Portable) IMPRESSION: The patient's postoperative right total hip arthroplasty, without apparent comp lication. Satisfactory alignment is noted. No fracture site is seen. Reading Location: [place] [id number]
[2024-09-22] MEDS: 0.9% Saline Lock 10 ML Syringe IV (11:52)
--- NOTE | 2024-09-22 12:09 | PCM.POST.ANE ---
Anesthesia: Postop Eval I Current Vital Signs Temperature: 97.5 F Pulse Rate: 60 Blood Pressure: 138/61 Respiratory Rate: 16 Pulse Ox: 96 Oxygen Delivery Method: Nasal Cannula Oxygen Flow Rate (L/min): 2 (Baseline rate ) Assessment Airway patent: Yes Spontaneous unlabored respirations: Yes Mental status: Awake and Calm nausea: No Vomiting: No Anesthesia Complication: No Fluid Hydration Crystalloid volume administer (ml): 1,300 Total IV fluid infused: 1,300 Progress Note Anesthesia document: Postop Eval 1 completed: Yes
--- NOTE | 2024-09-22 14:03 | PCM.CONS.GEN ---
Assessment & Plan Assessment/Plan (1) Asthma-COPD overlap syndrome: (2) Hip replacement planned: PLAN: Plan This is a 69-year-old female admitted for elective right hip replacement for chronic rheumatoid hip arthritis and secondary osteoarthritis 1. Right hip chronic rheumatoid arthritis with secondary osteoarthritis: Patient had right direct anterior minimally invasive total hip replacement on 09/22/2024. Surgical dressing is dry. On rivaroxaban 10 mg daily for DVT prophylaxis. Pain control. PT and OT. Incentive spirometry. Bowel and bladder care. Twelve-lead EKG in June 2023 shows NSR 87 bpm. QTc 469 ms. 2. Asthma COPD overlap syndrome: Follows in [place] pulmonary office. Did not had any recent asthma/COPD exacerbation. Continue current maintenance inhaler/Trelegy. 3. Chronic mild hypoxia: Currently on room air. Monitor pulse ox and supplement O2 if needed to keep pulse ox more than 90% 4. Chronic tobacco use/cigarette smoking: Last pulmonary office visit in April 2024. Current cigarette smoker. Advised smoking cessation. Patient also had 1.4 cm nodule on LDCT. Advised to follow-up in pulmonary office for repeat diagnostic CT scan in 6-month. 5. Nonobstructive CAD: Patient underwent cardiac cath in January 2021 which shows mild disease in LAD, circumflex and RCA. EF preserved. Continue aspirin, high intensity statin 6. Hypertension: On Ibresartan, continued with holding parameters 7. Hypothyroidism: On levothyroxine continued 8. GERD: On PPI Living will/advanced directive/end of life care: Patient does not living will or advanced directive. After discussion of benefits/risks procedures involved with full code, DNR CC arrest and DNR CC, the patient opted for full code. Patient does want artificial life support including intubation, tube feed, ventilator and/chest compression, central venous catheter, vasopressor and DC shock if needed Total time spent in [id number] encounter in discussion of advanced directive 17 minutes. HPI Consult Data Date of Consult: 09/22/24 HPI Narrative HPI Narrative: DONALDO ZHAO, is a 69 F who was admitted for elective surgery for primary diagnosis of right hip rheumatoid arthritis with associated osteoarthritis. She has debilitated right hip arthritis impairing her functional status/activities of daily living. Currently she denies any pain over the right hip area. She voided urine, chronically urine incontinent. Denies dysuria. Has moved bowel yesterday. No acute chest pain shortness of breath. [facility] Medical History Hx of uterine prolapse Wears glasses Loose, teeth Marijuana use Thyroid disease History of hiatal hernia History of diverticulitis Former smoker Emphysema, unspecified Anxiety and depression Nonobstructive atherosclerosis of coronary artery Elevated troponin GERD (gastroesophageal reflux disease) Hypertension COPD (chronic obstructive pulmonary disease) Hypothyroidism Rheumatoid arthritis Home Medications ?Medication ?Instructions ?Recorded ?Last Taken ?Type hydrocodone-acetaminophen 5-325mg 1 tab PO Q6H PRN PRN Pain 07/08/15 09/21/24 History 5mg-325mg naproxen sodium 220 mg tablet 440 mg PO DAILY Pain 07/08/15 09/08/24 History (Aleve) levothyroxine 25 mcg tablet 75 mcg PO DAILY thyroid 04/11/17 09/22/24 05:30 History pantoprazole 40 mg tablet,delayed 40 mg PO DAILY reflux 04/23/19 09/22/24 05:30 History release sertraline 100 mg tablet 200 mg PO DAILY anxiety and 01/18/21 09/22/24 05:30 History depression irbesartan 300 mg tablet 300 mg PO DAILY 12/30/22 09/22/24 05:30 History albuterol sulfate 90 mcg/actuation 2 puff inhalation Q4H PRN PRN 11/29/23 09/21/24 Rx aerosol inhaler (Ventolin HFA) Shortness of breath, wheezing ##3 aspirin 81 mg tablet,delayed 81 mg PO QDAY 11/29/23 09/08/24 History release fluticasone fur. 200 mcg-umeclid 1 inh inhalation DAILY #3 ea 11/29/23 09/22/24 05:30 Rx 62.5 mcg-vilant 25 mcg inhalat.powder (Trelegy Ellipta) alendronate 70 mg tablet 70 mg PO QWEEK 05/01/24 09/14/24 History multivitamin (Daily Multi-Vitamin 1 tab PO DAILY 09/01/24 09/19/24 History tablet) multivitamin with minerals 1 tab PO DAILY 09/01/24 09/19/24 History (Hair,Skin and Nails tablet) vitamin D3 125 mcg (5,000 1 cap PO .QD 09/01/24 09/19/24 History unit)-vitamin K2 180 mcg capsule (K2-D3 Max) Allergy/AdvReac Type Severity Reaction Status Date / Time cefadroxil hydrate (From Allergy Itching Verified 09/22/24 07:31 Duricef) Surgical History Anal squamous cell carcinoma Hx of colonoscopy History of left heart catheterization (01/17/21) H/O section H/O hysterectomy with oophorectomy Hx of appendectomy Social History household members: none Smoking Status: Current every day smoker tobacco type: cigarettes Tobacco: How many years used: 50 alcohol intake: current alcohol intake frequency: holidays/special occasions only substance use type: does not use and marijuana ROS ROS Narrative Constitutional: Reports fatigue and weakness. No fever. HEENT: Reports systems reviewed and no addt'l complaints, except as documented Respiratory/Chest: History of COPD. No acute shortness of breath or respiratory distress or wheezing. CVS: No history of MA or cardiac stent in the past. Had elevated troponin in the past thought to be due to increased cardiac demand Gastrointestinal: Denies coffee ground emesis, hematemesis or vomiting. Sometimes stool is not well-formed/sudden evacuation. Genitourinary: Denies burning urination or new urinary tract symptoms Musculoskeletal: Right hip replacement. Chronic debility right hip joint arthritis Neurologic: Denies seizure-like symptoms. skin: No ulcer. No rash Endocrinology: Reports systems reviewed and no addt'l complaints, except as documented Hematologic/Lymphatic: History of anal cancer status post chemoradiation. Reports systems reviewed and no addt'l complaints, except as documented Rest 14 ROS are negative except as mentioned in HPI Physical Exam Narrative General: Alert, Oriented x3, Cooperative HEENT: Atraumatic, PERRLA, EOMI, Normocephalic. Oral: Oral mucosa moist no Gingival or Mucosal Lesions/ Ulcerations Neck: Supple, No JVD, Negative Carotid Bruits Chest wall/Lungs: Air entry diminished in bilateral lung bases. No crepitation/rhonchi Cardiovascular: Regular rate and rhythm, Normal S1,S2, No M/G/R Abdomen: Bowel Sounds Present, Soft, Non Tender, Non-Distended : No dysuria. No catheter. No renal angle tenderness. No suprapubic tenderness. Extremities: No edema, Capillary Refill Less than 3 Seconds Skin: Right hip surgical dressing is dry. Musculoskeletal: Right hip anterior replacement. ROM not attempted. Neurological: Cranial nerves II-XII grossly intact, DTR 2+/4. No acute focal neurological deficit. Psych/Mental Status: Normal Affect, Appropriate. Lab / Micro Data Labs: Laboratory Results - last 24 hr 09/22/24 07:14: POC Glucose 107 H Imaging Radiology Impression Hip X-Ray 09/22/24 10:50 IMPRESSION: The patient's postoperative right total hip arthroplasty, without apparent complication. Satisfactory alignment is noted. No fracture site is seen. Reading Location: [place] [address] Charges/Coding Visit Charges Office Visits / Consults: 67781 OV L4 Est 30min Procedures Hospitalists Procedures: 29245 Advncd Care Plan 30 Min
[2024-09-22] MEDS: 0.9% Normal Saline (250mL Bag) 250 ML 15 ML IV (16:29)
[2024-09-22] MEDS: Cefazolin 1 GM/50 ML BAG IV (16:29)
[2024-09-22] MEDS: Senna/Docusate Sodium 1 Tablet 2 TABLET PO (21:45)
[2024-09-23] VITALS (9 sets, daily range): BP systolic 112–158; BP diastolic 59–69; PULSE 65–81; RESP 16–18; TEMP 36.4–36.7; O2SAT 89–98
[2024-09-23] MEDS: Cefazolin 1 GM/50 ML BAG IV (00:11)
[2024-09-23] MEDS: 0.9% Saline Lock 10 ML Syringe IV (00:11)
[2024-09-23 06:29] LABS: Hematocrit 29.9 % (37-47); Hemoglobin 9.6 g/dL (12.0-15.0); Immature Granulocytes Count 0.040 X10^3/uL (0.0-0.0); Mean Corp Hgb Conc 32.1 g/dL (32-36); Mean Corpuscular Volume 87.9 fL (81-99); Mean Platelet Vol. 10.2 fl (6.2-12.0); NRBC Flagged by Analyzer 0 % (0-5); Platelet Count 247 K/mm3 (150-450); RBC Distribution Width CV 13.9 % (11.6-14.6); RBC Distribution Width SD 45.1 fl (35.1-43.9); Red Blood Count 3.40 M/mm3 (4.2-5.4); White Blood Count 11.2 K/mm3 (4.4-11.0)
[2024-09-23] MEDS: Budesonide Respules 0.5 MG/2 ML AMPUL.NEB. INHALATION (06:30)
[2024-09-23 06:54] LABS: Anion Gap 11 (5-15); BUN 14 mg/dL (4-19); BUN/Creat Ratio 20.7 RATIO (10-20); Calcium,Total 8.4 mg/dL (7.6-11.0); Carbon Dioxide 22.8 mmol/L (21.0-32.0); Chloride 105 mmol/L (98-108); Estimated Creatinine Clearance 73.51 ml/min (50-250); Glucose 97 mg/dL (70-99); Potassium 4.1 mmol/L (3.3-5.1)
--- NOTE | 2024-09-23 08:35 | PN.HOSP_ITS ---
Subjective Subjective This is a 69-year-old female admitted for elective right hip replacement for chronic rheumatoid hip arthritis and secondary osteoarthritis Objective Data Objective Data Vital Signs: Vital Signs Temp Pulse Resp BP Pulse Ox O2 Del Method O2 Flow Rate 97.6 F L 65 17 112/59 L 95 Room Air 2 09/23/24 06:43 09/23/24 06:43 09/23/24 06:43 09/23/24 06:43 09/23/24 06:43 09/23/24 06:43 09/22/24 14:11 Oxygen Flow Rate (L/min) 2 Oxygen Delivery Method Room Air Weight: 92.4 kg Body Mass Index (BMI) 33.9 Intake & Output: Intake and Output for Last 24 Hours 09/21/24 09/22/24 09/23/24 23:59 23:59 23:59 Intake Total 651.25 / 651.25 450 / 450 Output Total 550 / 550 Balance 101.25 / 101.25 450 / 450 Lab / Micro Data 09/23/24 06:14 09/23/24 06:14 Labs: Laboratory Results - last 24 hr 09/23/24 06:14: WBC 11.2 H, RBC 3.40 L, Hgb 9.6 L, Hct 29.9 L, MCV 87.9, MCH 28.2, MCHC 32.1, RDW Std Deviation 45.1 H, RDW Coeff of Kanika 13.9, Plt Count 247, MPV 10.2, Immature Gran % (Auto) 0.400, Neut % (Auto) 81.2 H, Lymph % (Auto) 11.1 L, [place] % (Auto) 6.9, Eos % (Auto) 0.3, Baso % (Auto) 0.1, Absolute Neuts (auto) 9.1 H, Absolute Lymphs (auto) 1.24, Nucleated RBC % 0, Sodium 139, Potassium 4.1, Chloride 105, Carbon Dioxide 22.8, Anion Gap 11, BUN 14, Creatinine 0.70, Estim Creat Clear Calc 73.51, Est GFR (MDRD) Non-Af 93, B UN/Creatinine Ratio 20.7 H, Glucose 97, Calcium 8.4 Micro: Microbiology 09/19/24 12:34 Swab (Method) Nasal Screen MRSA/MSSA - Final Radiography Diagnostic Testing: Radiology Impression Hip X-Ray 09/22/24 10:50 IMPRESSION: The patient's postoperative right total hip arthroplasty, without apparent complication. Satisfactory alignment is noted. No fracture site is seen. Reading Location: [place] [id number] Physical Exam Narrative GENERAL: cooperative HEENT: Atraumatic; normocephalic EYES; Anicteric, Normal Conjunctiva NECK; supple, normal thyroid, RESPIRATORY: Diminished to auscultation CARDIOVASCULAR: Regular S1 S2, GI: soft, normoactive bowel sounds, : No Renal angle tenderness; EXTREMITIES: No edema, no clubbing, MUSCULOSKELETAL: no muscle wasting NEURO: Awake; no lateralizing signs. SKIN: No Rash PSYCH; Flat affect Assessment & Plan Assessment/Plan (1) Asthma-COPD overlap syndrome: (2) Hip replacement planned: PLAN: Plan This is a 69-year-old female admitted for elective right hip replacement for chronic rheumatoid hip arthritis and secondary osteoarthritis 1. 1. Status post right direct anterior minimally invasive total hip replacement on 09/22/2024 ? On account right hip chronic rheumatoid arthritis with secondary osteoarthritis postoperative management deferred to primary service. Patient did express a desire to be discharged to a long term facility/inpatient rehab. Patient is medically stable for discharge 2. Asthma/COPD?overlap syndrome ? Currently not in exacerbation neurosurgery treat as needed 3. Hypertension ? Blood pressure controlled, home medications continued with dose adjustment as needed 4. Hypothyroidism ? Patient is on levothyroxine home dose continued 5. Occasional use of marijuana ? 6. Mild coronary artery disease ? Based on left heart catheterization performed in January 2021 which showed mild disease in LAD circumflex and RCA with preserved ejection fraction. Patient is currently on guideline directed medical therapy 7. DVT prophylaxis ? Started on rivaroxaban by primary service Time spent in the patient's overall evaluation,decision-making process, review of diagnostic data, adjustment of management, discussion with other providers, nursing nursing and ancillary staff involved in patient's care documentation, 36 minutes Charges/Coding Visit Charges Inpatient E&M: 99820 Subs Hosp L2
[2024-09-23] MEDS: Aspirin E.C. 81 MG Tablet PO (08:44)
[2024-09-23] MEDS: Senna/Docusate Sodium 1 Tablet 2 TABLET PO (08:45)
--- NOTE | 2024-09-23 10:16 | PCM.PN.ORT ---
Subjective Subjective Patient is sitting in bedside chair upon examination. Patient states her pain is adequately controlled at this time. Patient states that she is feeling worried about going home as her son has back issues and cannot appropriately care for her as well as the steps into the house and getting into her garden tub which is the only way that she has to bathe. Patient states that her son just told her that he will be out of state this weekend. Patient denies any nausea, vomiting, dizziness. Patient denies any shortness of breath, chest pain, calf pain. Patient denies any new numbness or tingling. Objective Data Objective Data Vital Signs: Vital Signs Temp Pulse Resp BP Pulse Ox O2 Del Method O2 Flow Rate 97.7 F L 77 18 158/69 H 97 Room Air 2 09/23/24 08:47 09/23/24 08:47 09/23/24 08:47 09/23/24 08:47 09/23/24 08:51 09/23/24 08:51 09/22/24 14:11 Oxygen Flow Rate (L/min) 2 Oxygen Delivery Method Room Air Weight: 92.4 kg Body Mass Index (BMI) 33.9 Intake & Output: Intake and Output for Last 24 Hours 09/21/24 09/22/24 09/23/24 23:59 23:59 23:59 Intake Total 651.25 / 651.25 450 / 450 Output Total 550 / 550 Balance 101.25 / 101.25 450 / 450 Lab / Micro Data 09/23/24 06:14 09/23/24 06:14 Labs: Laboratory Results - last 24 hr 09/23/24 06:14: WBC 11.2 H, RBC 3.40 L, Hgb 9.6 L, Hct 29.9 L, MCV 87.9, MCH 28.2, MCHC 32.1, RDW Std Deviation 45.1 H, RDW Coeff of Kanika 13.9, Plt Count 247, MPV 10.2, Immature Gran % (Auto) 0.400, Neut % (Auto) 81.2 H, Lymph % (Auto) 11.1 L, Jewell % (Auto) 6.9, Eos % (Auto) 0.3, Baso % (Auto) 0.1, Absolute Neuts (auto) 9.1 H, Absolute Lymphs (auto) 1.24, Nucleated RBC % 0, Sodium 139, Potassium 4.1, Chloride 105, Carbon Dioxide 22.8, Anion Gap 11, BUN 14, Creatinine 0.70, Estim Creat Clear Calc 73.51, Est GFR (MDRD) Non-Af 93, BUN/Creatinine Ratio 20.7 H, Glucose 97, Calcium 8.4 Micro: Microbiology 09/19/24 12:34 Swab (Method) Nasal Screen MRSA/MSSA - Final Radiography Diagnostic Testing: Radiology Impression Hip X-Ray 09/22/24 10:50 IMPRESSION: The patient's postoperative right total hip arthroplasty, without apparent complication. Satisfactory alignment is noted. No fracture site is seen. Reading Location: [place] [id number] Physical Exam Narrative Vital stable and afebrile JUINOR hose in place bilaterally SCDs in place bilaterally Dressing is clean, dry, intact. Right hip soft and supple. Sensation intact to light touch. Neurovascularly intact overall. Dorsiflexion and plantarflexion are performed actively without pain or restriction. Negative Homans bilaterally. Const alert, oriented x3 and no apparent distress Assessment & Plan Assessment/Plan (1) Hip replacement planned: PLAN: Status post Right anterior total hip arthroplasty day 1. 1. DVT prophylaxis: Patient will be on Xarelto for 2 weeks postoperatively. Patient will then take aspirin 81 mg twice daily following the Xarelto until 4 weeks postoperatively. Patient will be wearing JUNIOR hose for 2 weeks postoperatively. Patient was educated she can remove them for showers and remove for sleeping. 2. Pain medications: Patient will be on Tylenol 1000 mg every 8 hours, and oxycodone as needed for pain control. Patient was educated not to take any anti-inflammatory medications due to being on Xarelto. 3. Constipation: Patient was educated to take senna as instructed until her first bowel movement to decrease risk of impaction following surgery. Patient was instructed if if she has not had a bowel movement in 3 days to contact our office for reevaluation. 4. Reactive leukocytosis: White blood cell count currently 11.2. Patient did receive Decadron intraoperatively. Vital signs are stable and patient is afebrile. 5. H&H: 9.6/29.9. Patient's vital signs are stable and afebrile. Patient will be given following anemia protocol. 6. Physical therapy: Patient is weightbearing as tolerated with walker. Patient will be following anterior hip precautions. Patient is pending getting set up at the rehab unit at [facility]. 7. Incentive spirometry: Patient was encouraged to use the incentive spirometer every hour that she is awake for the first week to exercise along decrease risk of postoperative lung infection. 8. Dressings: Patient was educated that she can get dressing wet on postoperative day 1. Patient was educated she can remove dressing on postoperative day 5. Patient was educated when she removes dressing she will have the Steri-Strips. Patient was educated to leave Steri-Strips alone and allow them to fall off. 9. Patient is to follow-up per postoperative instructions. 10. Medicine is involved at this point. Appreciate recommendations from medicine team. Medicine team did state that patient was medically stable for discharge at this time. 11. Disposition: We will plan for discharge today as long as pain maintains adequately controlled, patient works with and is cleared by physical therapy, and is okay per medicine doctors recommendations. Patient states that she does have a son at home but he has back problems and cannot help much. Patient states that she does not feel her son can do what he needs her to do. Patient states that the only way that she has to bathe is a garden tub and she does not feel like she can get in and out of the tub at this time. Patient states that she does not feel safe with going home at this time. Patient states that her son also just told her that he will be out of state for the weekend. Patient's medications presented patient's pharmacy choice. Patient was encouraged to call with any questions, concerns, new problems.
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
--- NOTE | 2024-09-23 12:15 | DCINST_ITS ---
Discharge Instructions DC O2, CPAP, BIPAP needs Home O2 Discharge instructions: No Dressing / Incision Discharge Activity: Use Walker (Weightbearing as tolerated with walker.) Weight Bearing Status: Weight bearing as tolerated (With walker following ant erior hip precautions.) Keep extremity elevated above heart level: Right Arm Dressing / Incision Call your doctor if your incision/area has: Continuous Slow Oozing, Sudden Increased Bleeding, Increased Pain/ Swelling, Increased Redness, Foul Smelling Discharge and Swelling at the incision site Call your doctor if you observe: Fever of 101 or Higher, Coldness, Increased Pain, Numbness or Tingling, Change in Color, Inability to urinate, Inability to have a bowel movement, Shortness of breath, Dizziness, Fainting spells, Chest pain, Prolonged hiccupping, Increased palpitations (irregular heartbeat), Calf discomfort and Uncontrolled pain Remove Dressing in: 5 days (May remove dressing on postoperative day 5. Can leave incision open to air as long as clean, dry, intact. Steri-Strips in place underneath the dressing. Leave intact and allow them to follow-up on their own .) Cleanse incision/area with: Soap & Water (Gentle soap and water.) Additional Dressing/Incision Instructions:: No soaking, submerging for 6 weeks postoperatively. No lotions, oils, salves over incision for 6 weeks postoperatively. Encourage incentive spirometry. Patient was encouraged to continue her ferrous sulfate and folic acid and follow -up with primary care provider in 7 to 10 days for repeat labs and to manage chronic anemia. Patient was educated that ferrous sulfate can cause constipation and was educated to let us know if have not had a bowel movement in 3 days. OARRS report was checked today. Follow Up Care Test Results: Test results from this visit will be discussed in further detail at your follow- up appointment, if applicable. Discharge Plan Admission Admit Date/Time: 09/22/24 06:58 Attending Provider: Kingston Mendez Primary Care Provider: Blade Tan Consulting Providers: Alexsander Delcid; Misael Yates Discharge Orders/Prescriptions Prescriptions: New acetaminophen 500 mg Tablet 1,000 mg PO Q8 Qty: 0 0RF ferrous sulfate [FeroSul] 325 mg (65 mg iron) Tablet 325 mg PO 1200,1700 Qty: 0 0RF Rx Instructions: Take until follow-up visit with primary care provider. folic acid 1 mg Tablet 1 mg PO BREAKFAST Qty: 0 0RF Rx Instructions: Take until follow-up visit with primary care provider. oxycodone 5 mg Tablet 2.5 mg PO Q4H PRN PRN (Reason: As needed for pain.Do not take with other narcotic) 7 Days Qty: 0 0RF Rx Instructions: 1-2 as needed every 4-6 hours for postoperative pain control. Do not take with any other narcotic pain medications. Xarelto 10 mg Tablet 10 mg PO DAILY@0600 14 Days Qty: 0 0RF Rx Instructions: Take for the first 2 weeks postoperatively and then switch over to aspirin 81 mg twice daily until 4 weeks postoperatively. sennosides-docusate sodium [Stimulant Laxative Plus] 8.6-50 mg Tablet 2 tab PO BID Qty: 0 0RF Rx Instructions: Take until first bowel movement and then it as needed. Continued aspirin 81 mg tablet,delayed release (DR/EC) 81 mg PO QDAY Trelegy Ellipta 200-62.5-25 mcg blister with device 1 inh inhalation DAILY Qty: 3 3RF albuterol sulfate [Ventolin HFA] 90 mcg/actuation HFA aerosol inhaler 2 puff inhalation Q4H PRN PRN (Reason: Shortness of breath, wheezing) Qty: 3 3RF alendronate 70 mg tablet 70 mg PO QWEEK levothyroxine 25 MCG tablet 75 mcg PO DAILY pantoprazole 40 MG tablet 40 mg PO DAILY sertraline 100 mg tablet 200 mg PO DAILY Patient Comments: TAKE 2 TABLETS DAILY irbesartan 300 mg tablet 300 mg PO DAILY Patient Comments: take 1 tablet by mouth once daily multivitamin [Daily Multi-Vitamin] Tablet 1 tab PO DAILY K2-D3 Max 125 mcg (5,000 unit)-180 mcg capsule 1 cap PO .QD Hair,Skin and Nails Tablet 1 tab PO DAILY hydrocodone-acetaminophen 1 TABLET tablet 1 tab PO Q6H PRN PRN (Reason: Pain) 7 Days Qty: 0 0RF Patient Comments: PAIN Rx Instructions: Do not take while taking oxycodone postoperatively. Postoperatively. Held naproxen sodium [Aleve] 220 MG tablet 440 mg PO DAILY Hold Instructions: Resume on 10/07/24. Do not take while taking Xarelto. Patient Comments: PAIN Other Ambulatory Orders: CBC W/Diff, Automated (Routine) Timeframe: 1 Week Facility: [facility] - Location: Laboratory Ordered By: Beckie Chester Referrals / Follow Up: Blade Tan DO [Primary Care Provider] - Disposition Disposition (needs filled in before D/C Order can be placed): Inpatient Rehab Unit/Facility
--- NOTE | 2024-09-23 13:54 | CASEMGMT ---
Social Work SW received report from RNCM that pt is presenting concerns with home situation. SW met with pt and discussed home concerns with pt and resources were provided to assist pt with financial and home concerns including [employer], [employer], [employer], Food Pantries and served meals, home delivered meals, Private Duty Aides and home cleaning services, [employer] card and [employer]. Pt did speak to [facility] today about the Passport program but was told she does not financially qualify for services. Pt to discharge to the today. ROX Agudelo updated on situation and resources provided. MARISELA Schneider
== END 2024-09-23 14:52 ==
LOC: SDC 11:20 → MS3 11:20
PROVIDERS: Anesthesiology; Admitting Provider Specialist; Referring Provider Specialist; Visit Provider Internal Medicine
PROC: (CPT 27284; principal; 2024-09-22 08:20)
DX: M16.11 Unilateral primary osteoarthritis, right hip (principal); Z79.1 Long term (current) use of non-steroidal anti-inflammatories (NSAID); K21.9 Gastro-esophageal reflux disease without esophagitis; F17.210 Nicotine dependence, cigarettes, uncomplicated; Z96.641 Presence of right artificial hip joint; I10 Essential (primary) hypertension; Z90.710 Acquired absence of both cervix and uterus; I25.10 Atherosclerotic heart disease of native coronary artery without angina pectoris; Z79.83 Long term (current) use of bisphosphonates; E03.9 Hypothyroidism, unspecified; J45.909 Unspecified asthma, uncomplicated; K59.00 Constipation, unspecified
CPT/HCPCS: 27130; 01214; 36415; 71046; 73501; 73502; 76000; 80048; 82962; 83735; 85025; 87081; 94640; 94668; 96365; 96366; 96375; 97162; 97166; 97530; 97535; 99221; C1776; A4216; G0378; J2405; J3475

== ENCOUNTER 2024-09-23 15:11 | Inpatient (IN) | payer MEDICARE, BC, SELFPAY ==
[2024-09-23 15:36] VITALS: BP 136/62; PULSE 75; RESP 18; TEMP 36.4; O2SAT 96; BMI 34.2
--- NOTE | 2024-09-23 16:29 | PCM.HP.STD ---
HPI - General General Date of Admission: 09/23/24 Date of Service: 09/23/24 Chief Complaint: Debility post THR HPI Narrative DONALDO ZHAO, is a 69 YO F with a hx of ongoing tobacco dependence, RA, OA, obesity, COPD, hypoxemia with ambulation requiring oxygen supplementation, anxiety/depression, Hearing loss, HTN, hx of VTE, history of anal cell squamous carcinoma, osteoporosis, nonobstructive coronary artery disease on cardiac catheterization in 2020, HH/GERD, diverticulosis, vitamin D deficiency, poor dental hygiene, marijuana use and hypothyroidism who underwent an anterior R THR on 09/22/[address] Yates. There were no significant post op complications and she was transferred to the acute inpt rehab unit at [facility] on 09/23/24 for 3 hours of therapy to restore function/independence at or near her level prior to the recent surgery. All lab from this AM was personally reviewed. Preoperative hemoglobin was 12.4 and postoperatively it is 9.6. There is a mild leukocytosis with left shift but she has been afebrile. BMP is unremarkable. Last mammogram was 1 to 2 years ago and was normal. Last colonoscopy was 1 to 2 years ago was done by Dr. Ahumada. Has had a DEXA within the past 1 to 2 years. She is not currently being treated for RA and has a lot of joint deformities. Tries to remember to use the Trelegy everyday but, sometimes forgets. She uses the Albuterol inhaler 1-2 times a day....she use it prior to smoking a joint. [facility] Medical History (Updated 09/23/24 @ 18:[address] Melba Overton, DO) Diverticulosis Squamous carcinoma Osteoporosis DVT (deep venous thrombosis) Tobacco abuse Respiratory failure with hypoxia Osteoarthritis Exercise hypoxemia COVID-19 Sinus infection Hx of uterine prolapse Wears glasses Loose, teeth Marijuana use History of hiatal hernia History of diverticulitis Anxiety and depression Nonobstructive atherosclerosis of coronary artery GERD (gastroesophageal reflux disease) Hypertension COPD (chronic obstructive pulmonary disease) Hypothyroidism Rheumatoid arthritis Home Medications ?Medication ?Instructions ?Recorded ?Last Taken ?Type naproxen sodium 220 mg tablet 440 mg PO DAILY Pain 07/08/15 09/08/24 History (Aleve) Held on 09/23/24. Instructions: Resume on 10/07/24. Do not take while taking Xarelto. levothyroxine 25 mcg tablet 75 mcg PO DAILY thyroid 04/11/17 09/23/24 History pantoprazole 40 mg tablet,delayed 40 mg PO DAILY reflux 04/23/19 09/23/24 History release sertraline 100 mg tablet 200 mg PO DAILY anxiety and 01/18/21 09/23/24 History depression irbesartan 300 mg tablet 300 mg PO DAILY blood pressure 12/30/22 09/23/24 History albuterol sulfate 90 mcg/actuation 2 puff inhalation Q4H PRN PRN 11/29/23 09/21/24 Rx aerosol inhaler (Ventolin HFA) Shortness of breath, wheezing ##3 aspirin 81 mg tablet,delayed 81 mg PO QDAY dvt prophylaxes 11/29/23 09/23/24 History release fluticasone fur. 200 mcg-umeclid 1 inh inhalation DAILY SOB #3 ea 11/29/23 09/23/24 Rx 62.5 mcg-vilant 25 mcg inhalat.powder (Trelegy Ellipta) alendronate 70 mg tablet 70 mg PO QWEEK osteoporosis 05/01/24 09/23/24 History multivitamin (Daily Multi-Vitamin 1 tab PO DAILY supplement 09/01/24 09/23/24 History tablet) multivitamin with minerals 1 tab PO DAILY supplement 09/01/24 09/19/24 History (Hair,Skin and Nails tablet) Held on 09/23/24. Instructions: Ordered vitamin D3 125 mcg (5,000 1 cap PO DAILY supplement 09/01/24 09/19/24 History unit)-vitamin K2 180 mcg capsule (K2-D3 Max) acetaminophen 500 mg tablet 1,000 mg (2 x 500 mg) PO Q8 pain 09/23/24 09/23/24 Rx #0 tabs ascorbic acid (vitamin C) 1,000 mg 1 g PO 1200 supplement 09/23/24 Unknown History tablet (Vitamin C) aspirin 81 mg tablet 81 mg PO BID dvt prophylaxes 09/23/24 Unknown History aspirin 81 mg tablet 81 mg PO DAILY dvt prophylaxes 09/23/24 Unknown History ferrous sulfate 325 mg (65 mg 325 mg PO 1200 supplement 09/23/24 09/23/24 History iron) tablet (FeroSul) folic acid 1 mg tablet 1 mg PO DAILY supplement 09/23/24 Unknown History oxycodone 5 mg tablet 2.5 mg PO Q4H PRN PRN pain 09/23/24 09/23/24 History rivaroxaban 10 mg tablet (Xarelto) 10 mg PO DAILY@0600 dvt prophylaxes 09/23/24 09/23/24 History Allergy/AdvReac Type Severity Reaction Status Date / Time cefadroxil hydrate (From Allergy Itching/hiv Verified 09/23/24 17:20 Duricef) es Family History unable to obtain Surgical History (Updated 09/23/24 @ 17:[address] Melba Overton DO) Status post total hip replacement, right History of cataract extraction Anal squamous cell carcinoma Hx of colonoscopy History of left heart catheterization (01/17/21) H/O section H/O hysterectomy with oophorectomy Hx of appendectomy Social History (Updated 09/23/24 @ 17:[address] Melba Overton DO) household members: children and other details: Her son and 2 grandchildren live with her. housing: house number of children: 1 current occupational status: retired Smoking Status: Former smoker quit date: 06/23/24 pack-years: 50 Tobacco: How many years used: 50 alcohol intake: current alcohol intake frequency: holidays/special occasions only substance use type: marijuana and other details: Smokes marijuana every day, usually once. ROS Review of Systems ROS Unobtainable: Denies due to encephalopathy, due to endotracheal tube, due to mental condition or due to mental status Constitutional Constitutional: Reports difficulty sleeping; Denies anorexia, change in weight, chills, fatigue, fever(s), headache(s), night sweats or weakness Eyes Eyes: Denies blurry vision, change in vision, eye pain or loss of vision ENT HEENT: Reports abnormal hearing, hearing loss and other Details: Does not wear hearing aids. Many missing teeth. ; Denies dysphagia, headache(s), mouth pain, nasal congestion, odynophagia or sore throat Cardiovascular Cardiovascular: Reports dyspnea on exertion; Denies chest pain, edema, lightheadedness, orthopnea, palpitations, paroxysmal nocturnal dyspnea or syncope Respiratory/Chest Respiratory/Chest: Reports dyspnea on exertion and shortness of breath with exertion; Denies cough, dyspnea, shortness of breath at rest or wheezing Gastrointestinal Gastrointestinal: Reports other Details: tolerates Fosamax without exacerbation of GERD. Takes Protonix daily. ; Denies abdominal pain, constipation, diarrhea, dyspepsia, hematemesis, hematochezia, nausea or vomiting Genitourinary Genitourinary: Reports nocturia, urinary frequency, urinary incontinence, urinary urgency and other Details: Has a hx of uterine prolapse. ; Denies dysuria, hematuria or urinary hesitancy Musculoskeletal Musculoskeletal: Reports abnormal gait, arthralgias, back pain, difficulty walking, extremity pain, joint pain, joint swelling and other Details: RA with multiple joint deformities. ; Denies neck pain Integumentary Integumentary: Reports dry skin, non-healing lesions and other Details: She has a area on her back that appears to have been a sebaceous cyst. She scratched it and it ruptured. there is a small opening in the skin. She saw dermatology.......they recommended butt cream but, she can not reach her back and she just allows it to be open to air. ; Denies acne, hirsutism or jaundice Neurologic Neurologic: Reports restless legs; Denies confusion, disequilibrium, dizziness, focal weakness, headache(s), paresthesias, seizures or tremor(s) Psychiatric Psychiatric: Reports anxiety and depression; Denies homicidal ideation or suicidal ideation Endocrine Endocrinology: Denies change in body appearance, polydipsia or polyuria Hematologic/Lymphatic Hematologic/Lymphatic: Denies easy bleeding, easy bruising or lymphadenopathy Allergic/Immunologic Allergic/Immunologic: Reports asthma; Denies rhinitis or eczemia Vital Signs Vital Signs Vital Signs: 09/23/24 15:36 Temperature 97.6 F L Temperature Source Temporal Pulse Rate 75 Respiratory Rate 18 Blood Pressure 136/62 H Blood Pressure Mean 86 Blood Pressure Source Monitor Blood Pressure Position Semi-Fowlers Blood Pressure Location Right Arm Pulse Ox 96 Oxygen Delivery Method Room Air Weight Weight: 212 lb 1.355 oz Body Mass Index (BMI) 34.2 Physical Exam Const alert, oriented x3 and no apparent distress Constitutional Narrative: Making good eye contact, appropriate. Lying in bed. She is calm and focused. Does not appear to be in any significant pain at the present time. General Appearance: cooperative and comfortable; Negative for disheveled HEENT moist oral mucous membranes HEENT Narrative: Has some hearing loss and she does not have hearing aids. I have to repeat myself from time to time. Mucous membranes are dry. Teeth and Gingiva: poor dentition, teeth discoloration and other Other Details: Many missing teeth. Throat: uvula midline Eyes conjunctivae normal and no scleral icterus Eyes Narrative: No discharge from the eyes and no mattering of the eyelashes. Neck no lymphadenopathy, supple, no JVD and no carotid bruits General: trachea midline Chest Chest: symmetrical chest wall rise Resp normal respiratory effort, no use of accessory muscles and clear to auscultation bilaterally Resp Narrative: Not tachypneic and no conversational dyspnea. Breath sounds are diminished throughout. Cardio regular rate, regular rhythm, S1 normal heart sound, S2 normal heart sound, no murmurs, no rub and no gallops GI normal to inspection, nondistended, normoactive bowel sounds, soft to palpation and non-tender GI Narrative: No guarding with palpation. no CVA tenderness Extremity no clubbing, cyanosis or edema Extremity Narrative: Multiple joint deformities due to RA, untreated. Decreased ROM multiple joints. NO reddened, warm joints. DP pulse on the left is 2+ and it is 1+ on the R. PT is 2+ on the R and 1+ on the Left. No ankle edema. Skin Skin Narrative: She has a open wound on her back. It is small and there is no surrounding erythema. There is no purulent DC. She has no pain to palpation around the opening. No swelling. Rashes: no rashes Wound Narrative: Hip incision is covered by a Mepilex.......will exam when the Mepilex is to be removed. Neuro oriented x3, CN's II-XII intact bilaterally and no focal motor deficits Psych affect normal Psych Narrative: Appropriate, making good eye contact. Able to stay on topic and focus. No flight of ideas. Does not appear anxious or depressed. Conversant and relating well to staff and myself. Assessment & Plan Assessment/Plan (1) Debility: (2) Status post total hip replacement, right: (3) Acute blood loss as cause of postoperative anemia: (4) Asthma-COPD overlap syndrome: (5) Exercise hypoxemia: (6) Rheumatoid arthritis: QUALIFIERS: Rheumatoid arthritis location: unspecified site Rheumatoid factor presence: unspecified presence Qualified Code(s): M06.9 - Rheumatoid arthritis, unspecified PLAN: Not currently being treated. Multiple joint deformities with decreased ROM. (7) Osteoarthritis: QUALIFIERS: Osteoarthritis location: multiple joints Osteoarthritis type: unspecified Qualified Code(s): M15.9 - Polyosteoarthritis, unspecified (8) Hypertension: QUALIFIERS: Hypertension type: primary hypertension Qualified Code(s): I10 - Essential (primary) hypertension (9) Hypothyroidism: QUALIFIERS: Hypothyroidism type: unspecified Qualified Code(s): E03.9 - Hypothyroidism, unspecified (10) Gastroesophageal reflux disease: QUALIFIERS: Esophagitis presence: without esophagitis Qualified Code(s): K21.9 - Gastro-esophageal reflux disease without esophagitis (11) Lung nodule: PLAN: In April [address] of the chest she was found to have a focal irregular nodular density in the posterior aspect of the lingular segment of the left upper lobe measuring 1.4 cm. Follow-up CT was recommended in 6 months. She had advanced emphysematous changes on the CT as well. 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 Treated with 3 months os Xarelto and has never had a recurrence. (14) Osteoporosis: QUALIFIERS: Osteoporosis type: age-related Presence of current pathological fracture: without current pathological fracture Qualified Code(s): M81.0 - Age-related osteoporosis without current pathological fracture PLAN: On Fosamax and a vitamin D supplement. (15) Squamous carcinoma: PLAN: Anal. Remote hx. Treated with surgery, chemo and radiation. Last colonoscopy was in [address] Ahumada told her to come back in 10 years. (16) Diverticulosis: (17) Restless leg: PLAN: Plan PLAN PT for gait stability OT for ADL's Analgesics as needed Bowel protocol Fall precautions Assess for Anxiety/Depression GI prophylaxis -Protonix DVT prophylaxis with Xarelto 10 mg daily Follow up with Dr. Yates, Dr. Tan and pulmonary following DC from IP Rehab AM lab including CMP, CBC, Mag vitamin D level and Phos Overnight trending pulse ox tonight Oxygen supplementation at 1 to 2 L/min anytime she is exerting herself she is due to have a follow CT chest in the end of October for a 1.4 mm nodule found on CT on 04/25/24. Charges/Coding Visit Charges Inpatient E&M: 76262 Init Hosp L2
[2024-09-23 18:00] VITALS: BP 133/62; PULSE 76; RESP 17; TEMP 36.4; O2SAT 97
--- NOTE | 2024-09-23 18:06 | PCM.RU.PYE ---
Admission Information Primary Diagnosis:: Debility secondary to right total hip replacement on 09/22/2024 Status Changes from Prescreening?: No changes Identified Actual Problem List:: Skin Intergrity, Pain, ALteration in Cmfrt, Bladder Incontinence, Alteration in Sleep, Mobility Impaired, Self Care Deficit, BP, Hypertension, Alteration/ Air Exchange and Alteration-Leisure Activ. Potential Problem List:: DVT, Bleeding, Infection, UTI, Aspiration, Falls, Skin Integrity and Depression Risk of Complications DVT: JUNIOR Hose and - (Xarelto 10 mg daily) Bleeding: Monitor Lab Values, Nursing to Teach Precautions for anti-coagulation therapy., Wound, if applicable, to be assessed every shift. and Stroke patients assessed for lethargy or change in status. Infection: Clinical Staff to Monitor for S/S of infection: and S/S of infection include fever, redness, warmth, etc. Urinary Tract Infection: Monitor for frequency, burning, discomfort, or incontinence. and Nursing will obtain urine sample for urinalysis and C&S when ordered. Aspiration: Clinical staff will monitor for coughing, drooling, congestion., Speech will evaluate swallowing and dsyphasia. and Nursing will monitor patient swallowing during meals. Falls: Patient will be evaluated for Fall Precautions and Patient will be placed on Fall Precautions as indicated per protocol. Skin Breakdown: Nursing will assess skin daily using assessment tool. and Nursing will place on Skin Breakdown Precautions as indicated. Pain: Clinical staff will assess patient's pain level per protocol., Medications will be given, if needed, and the pain level reassessed. and Other methods: Massage, distraction, decrease stimulus, etc. used PRN. Plan of Care Patient requires physician specializing in physical medicine and rehab oversight to provide close medical supervision of rehab issues including: Pain Management, Sleep Problems, Bowel and Bladder, Medical and co-morbidity Management, DVT prophylaxis, Rehabilitation Leadership and Coordination of treatment team Patient needs Physical Therapy: For a minimum of 1 hour and At least 5 out of 7 days Patient needs Physical Therapy to improve:: Mobility, Strengthening, Transfers, Stretching, ROM, Endurance, Stairs, Gait and Balance Patient needs Occupational Therapy: For a minimum of 1 hour and At least 5 out of 7 days Patient needs Occupational Therapy to improve ADL's incl.: Eating, Grooming, Bathing, Dressing, Toileting, Toilet transfers, Community Reintegration, Higher functioning activities, Household tasks, Adaptive Equipment, Splinting and Other activities as determined Patient requires 24/7 Rehabilitation Nursing for: Pain Issues, Identifying and preventing risk factors, Monitoring and reporting current medical conditions, Assisting with ambulation, transfer, and all ADL's, Teaching patients about disease process and medications, Family teaching, Providing safe environment, Bowel and Bladder Issues, Skin integrity and Medication Management Patient needs Vegetable Grower/ Case Management for: Discharge Planning, Arranging Home Equipment or Services and Family Interventions Patient needs Dietary and Nutrition Services for: Adequate Nutrition, Nutritional Supplements and Nutritional Education Goals Goals Patient will remain: free from falls Patient will perform eating at: MOD I level of assist. Patient will perform bed mobility at: MOD I level of assist. Patient will complete transfers from bed to chair at: MOD I level of assist. Patient will ambulate: - (165 feet with a wheeled walker at mod I on various surfaces) Patient will complete upper body dressing at: MOD I level of assist. Patient will complete lower body dressing at: MOD I level of assist. (With adaptive equipment as needed to facilitate increased independence with self-care) Patient will complete toilet transfer at: MOD I level of assist. Patient will complete toileting at: MOD I level of assist. Patient will perform bathing at: MOD I level of assist. (Upper body bathing independently and lower body bathing at mod I with adaptive equipment as necessary.) Patient will perform Tub/Shower transfer at: - (supervision ) Patient will complete grooming at: MOD I level of assist. (While standing at the sink) Patient will complete home management skills at: Standby Assist. Patient will achieve: - (5 steps with 2 handrails at standby assist) Patient will have pain level of: of 3 or less Patient's skin will: remain intact Patient will receive: adequate nutrition. Discharge Planning Pt Prognosis for Sig. Practical Improv. w/in Reasonable Time: Good Estimated Length of stay (days): 21 Anticipated D/C Destination: Home w/ family or friends (Her son and 2 grandchildren live with her) Was Preadmission Assessment Accurate?: Yes
[2024-09-23 20:00] VITALS: RESP 18
[2024-09-23] MEDS: Senna/Docusate Sodium 1 Tablet 2 TABLET PO (20:06)
[2024-09-23] MEDS: Fluticasone/Salmeterol 232-14 Inhaler 1 PUFF INHALATION (20:07)
[2024-09-23] MEDS: Silver Sulfadiazine 1% Crm 50 gm Bottle 1 APPLIC TOPICAL (20:07)
[2024-09-23 22:06] VITALS: PULSE 75; O2SAT 97
[2024-09-24 05:52] VITALS: BMI 33.1
[2024-09-24 06:00] VITALS: BP 149/81; PULSE 85; RESP 15; TEMP 36.7; O2SAT 94
[2024-09-24 06:14] VITALS: O2SAT 97
[2024-09-24 07:48] VITALS: BP 118/65; PULSE 83
[2024-09-24] MEDS: Senna/Docusate Sodium 1 Tablet 2 TABLET PO ×2 (07:48→20:55)
[2024-09-24 07:49] LABS: Hematocrit 32.3 % (37-47); Hemoglobin 10.4 g/dL (12.0-15.0); Immature Granulocytes Count 0.030 X10^3/uL (0.0-0.0); Mean Corp Hgb Conc 32.2 g/dL (32-36); Mean Corpuscular Volume 87.3 fL (81-99); Mean Platelet Vol. 10.1 fl (6.2-12.0); NRBC Flagged by Analyzer 0 % (0-5); Platelet Count 287 K/mm3 (150-450); RBC Distribution Width CV 14.2 % (11.6-14.6); RBC Distribution Width SD 45.2 fl (35.1-43.9); Red Blood Count 3.70 M/mm3 (4.2-5.4); White Blood Count 8.4 K/mm3 (4.4-11.0)
[2024-09-24] MEDS: Fluticasone/Salmeterol 232-14 Inhaler 1 PUFF INHALATION ×2 (07:49→20:57)
[2024-09-24] MEDS: Umeclidinium Bromide Inhaler 1 PUFF INHALATION (07:49)
[2024-09-24] MEDS: Aspirin E.C. 81 MG Tablet PO (07:49)
[2024-09-24] MEDS: Cholecalciferol (Vit D3) 125 MCG CAPSULE (5,000 UNITS) PO (07:49)
[2024-09-24] MEDS: Silver Sulfadiazine 1% Crm 50 gm Bottle 1 APPLIC TOPICAL ×2 (07:50→20:57)
--- NOTE | 2024-09-24 08:45 | PN_ITS ---
Subjective Subjective Afebrile VSS - Maintaining appropriate oxygen saturation on RA Oral intake - FOOD good FLUIDS poor Discussed with nursing - no problems that need addressed Reviewed the THERAPY notes Medication list reviewed. All lab from today was personally reviewed. White blood cell count is down to 8.4 from 11.2 yesterday. Hemoglobin is 10.4, up from 9.6 yesterday. MCV and MCH are normal. Platelets are within normal limits. Sodium is stable at 139 and the potassium is 4.4. The BUN is 12 with a creatinine of 0.67 which is within her baseline and it is stable. GFR is 94. Calcium, phosphorus and magnesium are all within normal limits. LFTs are unremarkable and the vitamin D level is mildly decreased at 27.9. She is complaining of increased urinary frequency last night. She denies dysuria. Postvoid residuals are good. I reviewed the overnight trending pulse ox and she does desaturate with sleep 10.63% of the time her oxygen saturation ranged from 81-89. There were no desaturation events lasting longer than 60 seconds. She denies chest pain, calf pain, dysuria, nausea/vomiting/abdominal pain, shortness of breath at rest. Objective Data Objective Data Vital Signs: Vital Signs Temp Pulse Resp BP Pulse Ox O2 Del Method O2 Flow Rate 98.0 F 83 15 118/65 94 Room Air 0 09/24/24 06:00 09/24/24 07:48 09/24/24 06:00 09/24/24 07:48 09/24/24 06:00 09/24/24 06:00 09/23/24 22:06 FiO2 21 09/23/24 22:06 Oxygen Flow Rate (L/min) 0 Oxygen Delivery Method Room Air Weight: 206 lb 2.115 oz Body Mass Index (BMI) 33.1 Intake & Output: Intake and Output for Last 24 Hours 09/22/24 09/23/24 09/24/24 23:59 23:59 23:59 Intake Total 200 / 200 Output Total 950 / 950 600 / 600 Balance -950 / -950 -400 / -400 Lab / Micro Data 09/24/24 07:29 09/24/24 07:29 Labs: Laboratory Results - last 24 hr 09/24/24 07:29: WBC 8.4, RBC 3.70 L, Hgb 10.4 L, Hct 32.3 L, MCV 87.3, MCH 28.1, MCHC 32.2, RDW Std Deviation 45.2 H, RDW Coeff of Kanika 14.2, Plt Count 287, MPV 10.1, Immature Gran % (Auto) 0.400, Neut % (Auto) 83.5 H, Lymph % (Auto) 9.7 L, [place] % (Auto) 5.5, Eos % (Auto) 0.7, Baso % (Auto) 0.2, Absolute Neuts (auto) 7.0, Absolute Lymphs (auto) 0.81 L, Nucleated RBC % 0 Physical Exam Const alert, oriented x3 and no apparent distress Constitutional Narrative: Sitting in the recliner at the bedside. HEENT Mouth: dry mucous membranes Resp clear to auscultation bilaterally Resp Narrative: Diminished throughout with no crackles or wheezes. No conversational dyspnea. Not tachypneic. She does have dyspnea on exertion. Cardio regular rate, regular rhythm, no murmurs, no rub and no gallops Cardio Narrative: No ectopy GI normal to inspection, nondistended, normoactive bowel sounds, soft to palpation and non-tender Extremity no calf tenderness General Extremity: Negative for edema Skin Rashes: no rashes Assessment & Plan Assessment/Plan (1) Debility: (2) Status post total hip replacement, right: (3) Acute blood loss as cause of postoperative anemia: (4) Asthma-COPD overlap syndrome: (5) Exercise hypoxemia: (6) Rheumatoid arthritis: QUALIFIERS: Rheumatoid arthritis location: unspecified site R heumatoid factor presence: unspecified presence Qualified Code(s): M06.9 - Rheumatoid arthritis, unspecified PLAN: Not currently being treated. Multiple joint deformities with decreased ROM. (7) Osteoarthritis: QUALIFIERS: Osteoarthritis location: multiple joints O steoarthritis type: unspecified Qualified Code(s): M15.9 - Polyosteoarthritis, unspecified (8) Hypertension: QUALIFIERS: Hypertension type: primary hypertension Qualified Code(s): I10 - Essential (primary) hypertension (9) Hypothyroidism: QUALIFIERS: Hypothyroidism type: unspecified Qualified Code(s): E 03.9 - Hypothyroidism, unspecified (10) Gastroesophageal reflux disease: QUALIFIERS: Esophagitis presence: without esophagitis Qualified Code(s): K21.9 - Gastro-esophageal reflux disease without esophagitis (11) Lung nodule: PLAN: In April [address] of the chest she was found to have a focal irregular nodular density in the posterior aspect of the lingular segment of the left upper lobe measuring 1.4 cm. Follow-up CT was recommended in 6 months. She had advanced emphysematous changes on the CT as well. 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 Treated with 3 months os Xarelto and has never had a recurrence. (14) Osteoporosis: QUALIFIERS: Osteoporosis type: age-related Presence of current pathological fracture: without current pathological fracture Qualified Code(s): M81.0 - Age-related osteoporosis without current pathological fracture PLAN: On Fosamax and a vitamin D supplement. (15) Squamous carcinoma: PLAN: Anal. Remote hx. Treated with surgery, chemo and radiation. Last colonoscopy was in [address] Ahumada told her to come back in 10 years. (16) Diverticulosis: (17) Restless leg: (18) Sleep related hypoxia: PLAN: Will prescribe 1.5 to 2 L/min oxygen supplementation anytime she is sleeping. PLAN: Plan 1. Continue therapy 2. Straight cath for UA 3. Will require oxygen at 1.5 to 2 L when she is sleeping and with exertion. 4. She has been taking 125 mcg of vitamin D daily and the vitamin D level is low. Will increase to 250 mcg daily. 5. Will be interesting to see if the restless leg she has at night improves with oxygen supplementation while sleeping. Charges/Coding Visit Charges Inpatient E&M: 89306 Subs Hosp L1
[2024-09-24 08:47] LABS: AST(SGOT) 21 U/L (<=31); Alanine Aminotransfer ALT/SGPT 8 U/L (<=34); Albumin, Serum 3.5 g/dL (3.4-4.8); Alkaline Phosphatase 110 U/L (35-104); Anion Gap 11 (5-15); BUN 12 mg/dL (4-19); BUN/Creat Ratio 18.0 RATIO (10-20); Calcium,Total 8.7 mg/dL (7.6-11.0); Carbon Dioxide 24.6 mmol/L (21.0-32.0); Chloride 104 mmol/L (98-108); Estimated Creatinine Clearance 75.39 ml/min (50-250); Globulin 3.2 g/dL (2.2-4.2); Glucose 102 mg/dL (70-99); Magnesium 2.1 mg/dL (1.5-2.2); Potassium 4.4 mmol/L (3.3-5.1); Vitamin D,25 Hydroxy 27.9 ng/mL (30-100)
[2024-09-24 11:10] VITALS: O2SAT 98
[2024-09-24 11:46] LABS: Mucous, Urine 0 SEEN /hpf (<or=2+); Red Blood Cells-Urine 0 SEEN /hpf (0-5); Squamous Epithelial Cells - UA 0 SEEN /hpf (5-10)
[2024-09-24 11:47] LABS: Color, Urine Yellow (Yellow); Glucose, Dipstick Normal (Normal); Ketone-Dipstick Negative (Negative); Leukocyte Esterase-Dipstick 25 /ul (Negative); Nitrite-Dipstick Negative (Negative); Occult Blood-Urine 25 /ul (Negative); Protein-Dipstick 30 mg/dl (Negative); Specific Gravity, Urine 1.010 (1.002-1.030); Urine Bilirubin Dipstick Negative (Negative)
[2024-09-24 17:59] VITALS: BP 103/63; PULSE 90; RESP 16; TEMP 36.8; O2SAT 97
[2024-09-24 20:00] VITALS: PULSE 90; RESP 16; O2SAT 97
[2024-09-25 06:00] VITALS: BP 123/65; PULSE 76; RESP 16; TEMP 36.3; O2SAT 97
[2024-09-25] MEDS: Fluticasone/Salmeterol 232-14 Inhaler 1 PUFF INHALATION ×2 (07:57→20:22)
[2024-09-25] MEDS: Umeclidinium Bromide Inhaler 1 PUFF INHALATION (07:57)
[2024-09-25] MEDS: Senna/Docusate Sodium 1 Tablet 2 TABLET PO (07:58)
[2024-09-25] MEDS: Aspirin E.C. 81 MG Tablet PO (07:59)
[2024-09-25] MEDS: Cholecalciferol (Vit D3) 125 MCG CAPSULE (5,000 UNITS) 250 MCG PO (07:59)
[2024-09-25] MEDS: Silver Sulfadiazine 1% Crm 50 gm Bottle 1 APPLIC TOPICAL ×2 (08:00→20:23)
[2024-09-25 08:01] VITALS: BP 123/70; PULSE 67
--- NOTE | 2024-09-25 08:10 | PCM.PROGNOTE ---
Subjective Subjective Evelyn was seen on team rounds today. POD#3. Afebrile VSS - Maintaining appropriate oxygen saturation on RA Oral intake - FOOD good FLUIDS poor-she only took in 700 cc yesterday. Overnight she had 560 cc. Fluid balance is negative since admission to rehab. Postvoid residuals x 3 are all less than 5. Discussed with nursing - No BM's recorded since admission to rehab. Her last BM was on the 18 prior to arriving on rehab. Having urge urinary incontinence. Reviewed the THERAPY notes Medication list reviewed. UA negative for infection. Evelyn tells me that she often has trouble falling asleep at night. She tells me she has a lot on my mind. She has taken trazodone in the past with no improvement in insomnia. She cannot tell me what dose she was taking but told me she was taking only 1 pill so I suspect it was 50 mg. She tells me that the pain in her right hip is adequately controlled. Denies chest pain, shortness of breath at rest, cough, dysuria. Objective Data Objective Data Vital Signs: Vital Signs Temp Pulse Resp BP Pulse Ox O2 Del Method O2 Flow Rate 97.3 F L 67 16 123/70 H 97 Nasal Cannula 2 09/25/24 06:00 09/25/24 08:01 09/25/24 06:00 09/25/24 08:01 09/25/24 06:00 09/25/24 06:00 09/25/24 06:00 FiO2 21 09/23/24 22:06 Oxygen Flow Rate (L/min) 2 Oxygen Delivery Method Nasal Cannula Weight: 206 lb 2.115 oz Body Mass Index (BMI) 33.1 Intake & Output: Intake and Output for Last 24 Hours 09/23/24 09/24/24 09/25/24 23:59 23:59 23:59 Intake Total 700 / 700 560 / 560 Output Total 950 / 950 850 / 850 300 / 300 Balance -950 / -950 -150 / -150 260 / 260 Lab / Micro Data 09/24/24 07:29 09/24/24 07:29 Labs: Laboratory Results - last 24 hr 09/24/24 07:29: Sodium 139, Potassium 4.4, Chloride 104, Carbon Dioxide 24.6, Anion Gap 11, BUN 12, Creatinine 0.67 L, Estim Creat Clear Calc 75.39, Est GFR (MDRD) Non-Af 94, BUN/Creatinine Ratio 18.0, Glucose 102 H, Calcium 8.7, Phosphorus 3.2, Magnesium 2.1, Total Bilirubin 0.28, AST 21, ALT 8, Alkaline Phosphatase 110 H, Total Protein 6.7, Albumin 3.5, Globulin 3.2, Albumin/Globulin Ratio 1.1, Vitamin D 25-Hydroxy 27.9 L 09/24/24 11:40: Urine Color Yellow, Urine Clarity Clear, Urine pH 7.0, Ur Specific [place] 1.010, Urine Protein 30 H, Urine Glucose (UA) Normal, Urine Ketones Negative, Urine Occult Blood 25 H, Urine Nitrite Negative, Urine Bilirubin Negative, Urine Urobilinogen Normal, Ur Leukocyte Esterase 25 H, Urine RBC 0 SEEN, Urine WBC 0 SEEN, Ur Squamous Epith Cells 0 SEEN, Urine Bacteria 0 SEEN, Urine Mucus 0 SEEN Physical Exam Const alert, oriented x3 and no apparent distress Constitutional Narrative: Sitting in the recliner at the bedside. HEENT Mouth: dry mucous membranes Resp clear to auscultation bilaterally Resp Narrative: Diminished throughout with no crackles or wheezes. No conversational dyspnea. Not tachypneic. She does have dyspnea on exertion. Cardio regular rate, regular rhythm, no murmurs, no rub and no gallops Cardio Narrative: No ectopy GI normal to inspection, nondistended, normoactive bowel sounds, soft to palpation and non-tender Extremity no calf tenderness General Extremity: Negative for edema Skin Rashes: no rashes Assessment & Plan Assessment/Plan (1) Debility: (2) Status post total hip replacement, right: (3) Acute blood loss as cause of postoperative anemia: (4) Asthma-COPD overlap syndrome: (5) Exercise hypoxemia: (6) Rheumatoid arthritis: QUALIFIERS: Rheumatoid arthritis location: unspecified site Rheumatoid factor presence: unspecified presence Qualified Code(s): M06.9 - Rheumatoid arthritis, unspecified (7) Osteoarthritis: QUALIFIERS: Osteoarthritis location: multiple joints Osteoarthritis type: unspecified Qualified Code(s): M15.9 - Polyosteoarthritis, unspecified (8) Hypertension: QUALIFIERS: Hypertension type: primary hypertension Qualified Code(s): I10 - Essential (primary) hypertension (9) Hypothyroidism: QUALIFIERS: Hypothyroidism type: unspecified Qualified Code(s): E03.9 - Hypothyroidism, unspecified (10) Gastroesophageal reflux disease: QUALIFIERS: Esophagitis presence: without esophagitis Qualified Code(s): K21.9 - Gastro-esophageal reflux disease without esophagitis (11) Lung nodule: (12) Nonobstructive atherosclerosis of coronary artery: (13) DVT (deep venous thrombosis): (14) Osteoporosis: QUALIFIERS: Osteoporosis type: age-related Presence of current pathological fracture: without current pathological fracture Qualified Code(s): M81.0 - Age-related osteoporosis without current pathological fracture (15) Squamous carcinoma: (16) Diverticulosis: (17) Restless leg: (18) Sleep related hypoxia: PLAN: Plan 1. Continue therapy 2. Start amitriptyline 20 mg p.o. nightly at 9 PM. The home situation is not a good one. There is a lot of stress. Her son and 2 young grandchildren live with her. She told the PT that she nad her son and even the grandchild scream at each other. FAmily counselling/individual counselling may be a good place to start. Charges/Coding Visit Charges Inpatient E&M: 19322 Subs Hosp L1
[2024-09-25 08:12] VITALS: O2SAT 97
[2024-09-25 18:00] VITALS: BP 126/68; PULSE 84; RESP 16; TEMP 37.2; O2SAT 97
[2024-09-25 19:50] VITALS: PULSE 84; RESP 16; O2SAT 97
[2024-09-26 06:00] VITALS: BP 133/74; PULSE 71; RESP 16; TEMP 36.7; O2SAT 98
[2024-09-26] MEDS: Fluticasone/Salmeterol 232-14 Inhaler 1 PUFF INHALATION ×2 (07:49→21:42)
[2024-09-26] MEDS: Umeclidinium Bromide Inhaler 1 PUFF INHALATION (07:49)
[2024-09-26] MEDS: Cholecalciferol (Vit D3) 125 MCG CAPSULE (5,000 UNITS) 250 MCG PO (07:49)
[2024-09-26] MEDS: Silver Sulfadiazine 1% Crm 50 gm Bottle 1 APPLIC TOPICAL ×2 (07:49→21:42)
[2024-09-26] MEDS: Aspirin E.C. 81 MG Tablet PO (07:50)
[2024-09-26 17:26] VITALS: BP 105/55; PULSE 70; RESP 17; TEMP 36.7; O2SAT 98
[2024-09-26 21:40] VITALS: PULSE 70; RESP 17; O2SAT 98
[2024-09-27 06:00] VITALS: BP 142/67; PULSE 78; RESP 18; TEMP 36; O2SAT 98
[2024-09-27 06:55] VITALS: O2SAT 94
[2024-09-27] MEDS: Fluticasone/Salmeterol 232-14 Inhaler 1 PUFF INHALATION ×2 (08:58→21:30)
[2024-09-27] MEDS: Umeclidinium Bromide Inhaler 1 PUFF INHALATION (08:58)
[2024-09-27] MEDS: Cholecalciferol (Vit D3) 125 MCG CAPSULE (5,000 UNITS) 250 MCG PO (08:59)
[2024-09-27] MEDS: Senna/Docusate Sodium 1 Tablet 2 TABLET PO ×2 (09:00→21:30)
[2024-09-27] MEDS: Aspirin E.C. 81 MG Tablet PO (09:01)
[2024-09-27] MEDS: Silver Sulfadiazine 1% Crm 50 gm Bottle 1 APPLIC TOPICAL ×2 (09:01→21:30)
[2024-09-27 17:50] VITALS: BP 105/62; PULSE 71; RESP 17; TEMP 36.6; O2SAT 95
[2024-09-27 21:39] VITALS: O2SAT 99
[2024-09-28 05:14] VITALS: BP 151/76; PULSE 81; RESP 20; TEMP 37.2; O2SAT 98
[2024-09-28 06:14] VITALS: O2SAT 93
[2024-09-28] MEDS: Senna/Docusate Sodium 1 Tablet 2 TABLET PO (09:11)
[2024-09-28] MEDS: Cholecalciferol (Vit D3) 125 MCG CAPSULE (5,000 UNITS) 250 MCG PO (09:11)
[2024-09-28] MEDS: Silver Sulfadiazine 1% Crm 50 gm Bottle 1 APPLIC TOPICAL ×2 (09:12→21:56)
[2024-09-28] MEDS: Fluticasone/Salmeterol 232-14 Inhaler 1 PUFF INHALATION ×2 (09:12→21:56)
[2024-09-28] MEDS: Umeclidinium Bromide Inhaler 1 PUFF INHALATION (09:12)
[2024-09-28] MEDS: Aspirin E.C. 81 MG Tablet PO (09:12)
[2024-09-28 09:15] VITALS: BP 106/63; PULSE 73
[2024-09-28 18:13] VITALS: BP 116/63; PULSE 76; RESP 17; TEMP 36.9; O2SAT 98
[2024-09-28 21:50] VITALS: O2SAT 99
[2024-09-29 06:58] VITALS: O2SAT 94
[2024-09-29 07:08] VITALS: BP 124/71; PULSE 70; RESP 17; TEMP 36.6; O2SAT 99
[2024-09-29] MEDS: Fluticasone/Salmeterol 232-14 Inhaler 1 PUFF INHALATION ×2 (08:23→22:10)
[2024-09-29] MEDS: Umeclidinium Bromide Inhaler 1 PUFF INHALATION (08:23)
[2024-09-29] MEDS: Silver Sulfadiazine 1% Crm 50 gm Bottle 1 APPLIC TOPICAL ×2 (08:23→22:09)
[2024-09-29] MEDS: Aspirin E.C. 81 MG Tablet PO (08:24)
[2024-09-29] MEDS: Cholecalciferol (Vit D3) 125 MCG CAPSULE (5,000 UNITS) 250 MCG PO (08:24)
[2024-09-29 09:00] VITALS: O2SAT 98
--- NOTE | 2024-09-29 10:34 | PN_ITS ---
Subjective Subjective Evelyn was seen on team rounds today. Her son was present in the room for rounds. All their questions were answered to their satisfaction. Afebrile VSS - Maintaining appropriate oxygen saturation on RA Oral intake - FOOD good FLUIDS fair to good Discussed with nursing - no problems that need addressed. Sleeping much better with the addition of Elavil 20 mg nightly to the drug regimen. Reviewed the THERAPY notes -making good progress. Medication list reviewed. Taking oxycodone 5 mg 1-2 times daily. Sleeping much better at night with Elavil 20 mg nightly. Denies headache, lightheadedness, vertigo, chest pain, shortness of breath, palpitations, nausea/vomiting/abdominal pain, dysuria and calf tenderness. Multiple joint complaints. Objective Data Objective Data Vital Signs: Vital Signs Temp Pulse Resp BP Pulse Ox O2 Del Method O2 Flow Rate 97.8 F 70 17 124/71 H 99 Nasal Cannula 2 09/29/24 07:08 09/29/24 07:08 09/29/24 07:08 09/29/24 07:08 09/29/24 07:08 09/29/24 07:08 09/29/24 07:08 FiO2 21 09/23/24 22:06 Oxygen Flow Rate (L/min) 2 Oxygen Delivery Method Nasal Cannula Weight: 206 lb 2.115 oz Body Mass Index (BMI) 33.1 Intake & Output: Intake and Output for Last 24 Hours 09/27/24 09/28/24 09/29/24 23:59 23:59 23:59 Intake Total 1960 / 1960 1030 / 1030 200 / 200 Output Total 1250 / 1250 1600 / 1600 300 / 300 Balance 710 / 710 -570 / -570 -100 / -100 Lab / Micro Data 09/24/24 07:29 09/24/24 07:29 Physical Exam Const alert, oriented x3 and no apparent distress Constitutional Narrative: Sitting in the recliner at the bedside. Resp clear to auscultation bilaterally Resp Narrative: Diminished throughout with no crackles or wheezes. No conversational dyspnea. Not tachypneic. She does have dyspnea on exertion. Cardio regular rate, regular rhythm, no murmurs, no rub and no gallops Cardio Narrative: No ectopy GI normal to inspection, nondistended, normoactive bowel sounds, soft to palpation and non-tender Extremity no calf tenderness Extremity Narrative: Many joint deformities and rheumatoid nodules. No red swollen hot joints. General Extremity: Negative for edema Skin Rashes: no rashes Wound Narrative: Incision is intact with no dehiscence, no annabelle-incisional erythema and no discharge. Patient states her hip pain is adequately controlled. Assessment & Plan Assessment/Plan (1) Debility: (2) Status post total hip replacement, right: (3) Acute blood loss as cause of postoperative anemia: (4) Asthma-COPD overlap syndrome: (5) Exercise hypoxemia: (6) Rheumatoid arthritis: QUALIFIERS: Rheumatoid arthritis location: unspecified site R heumatoid factor presence: unspecified presence Qualified Code(s): M06.9 - Rheumatoid arthritis, unspecified (7) Osteoarthritis: QUALIFIERS: Osteoarthritis location: multiple joints O steoarthritis type: unspecified Qualified Code(s): M15.9 - Polyosteoarthritis, unspecified (8) Hypertension: QUALIFIERS: Hypertension type: primary hypertension Qualified Code(s): I10 - Essential (primary) hypertension (9) Hypothyroidism: QUALIFIERS: Hypothyroidism type: unspecified Qualified Code(s): E 03.9 - Hypothyroidism, unspecified (10) Gastroesophageal reflux disease: QUALIFIERS: Esophagitis presence: without esophagitis Qualified Code(s): K21.9 - Gastro-esophageal reflux disease without esophagitis (11) Lung nodule: (12) Nonobstructive atherosclerosis of coronary artery: (13) DVT (deep venous thrombosis): (14) Osteoporosis: QUALIFIERS: Osteoporosis type: age-related Presence of current pathological fracture: without current pathological fracture Qualified Code(s): M81.0 - Age-related osteoporosis without current pathological fracture (15) Squamous carcinoma: (16) Diverticulosis: (17) Restless leg: (18) Sleep related hypoxia: PLAN: Plan 1. Continue therapy 2. Discussed a referral to pain management. She is good with this and would like to follow up with Dr. Mcginnis. 3. Recommended she try again with rheumatology..........to prevent any more joint destruction.......she already has multiple joint deformities and rheumatoid nodules. She is agreeable to following up with [facility]. 4. Plan DC for Sunday. Will give a RX for Oxycodone at [place]. Continue the amitriptyline at discharge. 5. Home health care at discharge and later transitioning to outpatient therapy. Charges/Coding Visit Charges Inpatient E&M: 12126 Subs Hosp L2
--- NOTE | 2024-09-29 13:42 | CASEMGMT ---
Social Work IDT met with patient and son for Team meeting. Discussed patient's progress in PT/OT/SN/MD. Educated to Medicare approval of 12 days with DC 10/05. Pt agreeable to that DC date. SW to coordinate skilled HHC d/t barrier for transportation. Resources provided on acute. Pt agreed to skilled HHC. SW provided list of skilled HHC agencies within geographical area, INN with insurance, that include quality and resource data via [employer] guide. Pt to review and notify this worker of preference. SW to refer for PT/OT/SW/RADFORD. Pt needs BL platform attachments. SW inquired to [facility] [place] and they can provide the attachments. SW to place referral. Son to transport at [place] borrowing a friends vehicle. - SW sent referral to [facility] [place] via [employer]. Plan: DC home with son 10/05, HHC PT/OT/SW/RADFORD, BL platform attachments Jammie Christopher MSW HEAD OF MAINTENANCE
[2024-09-29 18:00] VITALS: BP 118/70; PULSE 68; RESP 17; TEMP 37.1; O2SAT 98
[2024-09-29 20:05] VITALS: PULSE 68; RESP 16; O2SAT 96
[2024-09-29] MEDS: Senna/Docusate Sodium 1 Tablet 2 TABLET PO (22:14)
[2024-09-30 06:00] VITALS: BP 137/70; PULSE 84; RESP 18; TEMP 36.7; O2SAT 98
[2024-09-30] MEDS: Silver Sulfadiazine 1% Crm 50 gm Bottle 1 APPLIC TOPICAL ×2 (08:27→19:59)
[2024-09-30] MEDS: Aspirin E.C. 81 MG Tablet PO (08:27)
[2024-09-30] MEDS: Umeclidinium Bromide Inhaler 1 PUFF INHALATION (08:27)
[2024-09-30] MEDS: Fluticasone/Salmeterol 232-14 Inhaler 1 PUFF INHALATION ×2 (08:27→19:58)
[2024-09-30] MEDS: Cholecalciferol (Vit D3) 125 MCG CAPSULE (5,000 UNITS) 250 MCG PO (08:28)
[2024-09-30 09:00] VITALS: O2SAT 96
--- NOTE | 2024-09-30 09:04 | PN_ITS ---
Subjective Subjective Afebrile Vital signs stable Sleeping well at night on Elavil 20 mg nightly Good appetite and oral intake. Maintaining appropriate oxygen saturation on room air Last bowel movement was yesterday she was having regular bowel movements. Had 2 doses of oxycodone 5 mg yesterday for pain. She denies lightheadedness, cephalgia, palpitations, chest pain, shortness of breath, cough, nausea/vomiting/abdominal pain, dysuria and calf tenderness. She feels her pain is being appropriately managed. She is sleeping well at night and has a good appetite. Very pleasant and engaging. Objective Data Objective Data Vital Signs: Vital Signs Temp Pulse Resp BP Pulse Ox O2 Del Method O2 Flow Rate 98.1 F 84 18 137/70 H 98 Nasal Cannula 1.5 09/30/24 06:00 09/30/24 06:00 09/30/24 06:00 09/30/24 06:00 09/30/24 06:00 09/30/24 06:00 09/30/24 06:00 FiO2 21 09/23/24 22:06 Oxygen Flow Rate (L/min) 1.5 Oxygen Delivery Method Nasal Cannula Weight: 206 lb 2.115 oz Body Mass Index (BMI) 33.1 Intake & Output: Intake and Output for Last 24 Hours 09/28/24 09/29/24 09/30/24 23:59 23:59 23:59 Intake Total 1030 / 1030 2040 / 2040 390 / 390 Output Total 1600 / 1600 1650 / 1650 250 / 250 Balance -570 / -570 390 / 390 140 / 140 Lab / Micro Data 10/01/24 07:05 10/01/24 07:05 Physical Exam Const alert, oriented x3 and no apparent distress Constitutional Narrative: Sitting in the recliner at the bedside reading a book and appears comfortable. General Appearance: cooperative Resp clear to auscultation bilaterally Resp Narrative: Diminished breath sounds throughout but no crackles or wheezes. She is not tachypneic. Dyspnea on exertion has improved since admission with regular exercise. Cardio regular rate, regular rhythm and no gallops GI normal to inspection, nondistended, normoactive bowel sounds, soft to palpation and non-tender Extremity no calf tenderness Skin Skin Narrative: The right hip incision is intact with Steri-Strips present. There is a small amount of dried blood under the Steri-Strips in the mid incision but there is no purulent discharge. There is no annabelle-incisional erythema and no increased warmth to touch. She does still have some swelling around the incision. Neuro CN's II-XII intact bilaterally and no focal motor deficits Assessment & Plan Assessment/Plan (1) Debility: (2) Status post total hip replacement, right: (3) Acute blood loss as cause of postoperative anemia: (4) Asthma-COPD overlap syndrome: (5) Exercise hypoxemia: (6) Rheumatoid arthritis: QUALIFIERS: Rheumatoid arthritis location: unspecified site R heumatoid factor presence: unspecified presence Qualified Code(s): M06.9 - Rheumatoid arthritis, unspecified (7) Osteoarthritis: QUALIFIERS: Osteoarthritis location: multiple joints O steoarthritis type: unspecified Qualified Code(s): M15.9 - Polyosteoarthritis, unspecified (8) Hypertension: QUALIFIERS: Hypertension type: primary hypertension Qualified Code(s): I10 - Essential (primary) hypertension (9) Hypothyroidism: QUALIFIERS: Hypothyroidism type: unspecified Qualified Code(s): E 03.9 - Hypothyroidism, unspecified (10) Gastroesophageal reflux disease: QUALIFIERS: Esophagitis presence: without esophagitis Qualified Code(s): K21.9 - Gastro-esophageal reflux disease without esophagitis (11) Lung nodule: (12) Nonobstructive atherosclerosis of coronary artery: (13) DVT (deep venous thrombosis): (14) Osteoporosis: QUALIFIERS: Osteoporosis type: age-related Presence of current pathological fracture: without current pathological fracture Qualified Code(s): M81.0 - Age-related osteoporosis without current pathological fracture (15) Squamous carcinoma: (16) Diverticulosis: (17) Restless leg: (18) Sleep related hypoxia: PLAN: Plan 1. Continue therapy 2. CBC, BMP, ESR and CRP in the a.m. 3. Consider weaning Sertraline off and starting Cymbalta. Will discuss with Evelyn. 4. Continue Elavil at HS. Charges/Coding Visit Charges Inpatient E&M: 14103 Subs Hosp L1
[2024-09-30 10:27] VITALS: O2SAT 93
--- NOTE | 2024-09-30 14:21 | CASEMGMT ---
Social Work SW received call from pt with [facility] choices: [facility], [facility], [facility]. SW phoned referral to [facility] for PT/OT/SW/RADFORD. Jammie JONESW
[2024-09-30 17:31] VITALS: BP 116/61; PULSE 76; RESP 16; TEMP 36.6; O2SAT 93
[2024-09-30] MEDS: Senna/Docusate Sodium 1 Tablet 2 TABLET PO (19:59)
[2024-09-30 22:00] VITALS: RESP 16; O2SAT 96
[2024-10-01 05:44] VITALS: BP 115/69; PULSE 74; RESP 16; TEMP 36.6; O2SAT 97
[2024-10-01 05:45] VITALS: BMI 33.5
[2024-10-01 07:50] LABS: Hematocrit 29.0 % (37-47); Hemoglobin 9.3 g/dL (12.0-15.0); Mean Corp Hgb Conc 32.1 g/dL (32-36); Mean Corpuscular Volume 88.4 fL (81-99); Mean Platelet Vol. 9.3 fl (6.2-12.0); Platelet Count 336 K/mm3 (150-450); RBC Distribution Width CV 13.9 % (11.6-14.6); RBC Distribution Width SD 44.7 fl (35.1-43.9); Red Blood Count 3.28 M/mm3 (4.2-5.4); White Blood Count 5.8 K/mm3 (4.4-11.0)
[2024-10-01] MEDS: Silver Sulfadiazine 1% Crm 50 gm Bottle 1 APPLIC TOPICAL ×2 (07:51→20:33)
[2024-10-01] MEDS: Umeclidinium Bromide Inhaler 1 PUFF INHALATION (07:52)
[2024-10-01] MEDS: Aspirin E.C. 81 MG Tablet PO (07:52)
[2024-10-01] MEDS: Cholecalciferol (Vit D3) 125 MCG CAPSULE (5,000 UNITS) 250 MCG PO (07:52)
[2024-10-01] MEDS: Fluticasone/Salmeterol 232-14 Inhaler 1 PUFF INHALATION ×2 (07:52→20:28)
[2024-10-01 07:55] VITALS: O2SAT 95
[2024-10-01 07:59] LABS: CRP 49.10 mg/L (0.0-3.0)
[2024-10-01 08:44] LABS: Anion Gap 10 (5-15); BUN 16 mg/dL (4-19); BUN/Creat Ratio 26.8 RATIO (10-20); Calcium,Total 8.6 mg/dL (7.6-11.0); Carbon Dioxide 26.2 mmol/L (21.0-32.0); Chloride 102 mmol/L (98-108); Estimated Creatinine Clearance 75.80 ml/min (50-250); Glucose 97 mg/dL (70-99); Potassium 4.2 mmol/L (3.3-5.1)
[2024-10-01 18:00] VITALS: BP 115/77; PULSE 78; RESP 16; TEMP 36.8; O2SAT 98
[2024-10-01] MEDS: Senna/Docusate Sodium 1 Tablet 2 TABLET PO (20:28)
[2024-10-02 06:00] VITALS: BP 100/63; PULSE 72; RESP 18; TEMP 36.6; O2SAT 98
[2024-10-02] MEDS: Aspirin E.C. 81 MG Tablet PO (08:20)
[2024-10-02] MEDS: Cholecalciferol (Vit D3) 125 MCG CAPSULE (5,000 UNITS) 250 MCG PO (08:20)
[2024-10-02] MEDS: Silver Sulfadiazine 1% Crm 50 gm Bottle 1 APPLIC TOPICAL ×2 (08:21→20:34)
[2024-10-02] MEDS: Fluticasone/Salmeterol 232-14 Inhaler 1 PUFF INHALATION ×2 (08:22→20:35)
[2024-10-02] MEDS: Umeclidinium Bromide Inhaler 1 PUFF INHALATION (08:22)
[2024-10-02] MEDS: Senna/Docusate Sodium 1 Tablet 2 TABLET PO ×2 (08:24→20:33)
--- NOTE | 2024-10-02 11:10 | PN_ITS ---
Subjective Subjective Afebrile Vital signs stable Maintaining appropriate oxygen saturation on nasal O2 at 2 L/min. Sleeping well at night. Good appetite. Pain is adequately controlled. Tells me that she was taking Motrin at home for pain control which helped and that she had to stop that 2 weeks prior to the surgery. It was not restarted post op because she is taking Xarelto for DVT prophylaxis. She denies any hx of PUD. Stool today is heme + and the HGB dropped to 9.3 yesterday.......it was 9.6 post op. She has normochromic normocytic indices but the RDW is mildly elevated. She is taking Protonix 40 mg daily. Sleeping well at night. Tells me that she started sertraline during COV when she was living by herself and depressed. She denies feeling depressed at this time. she is sad because one of her close friends yesterday and she will not be able to see her. Denies CP, SOB, plapitations, N/V/abd pain, dysuria and calf pain. Objective Data Objective Data Vital Signs: Vital Signs Temp Pulse Resp BP Pulse Ox O2 Del Method O2 Flow Rate 97.9 F 72 18 100/63 98 Nasal Cannula 2 10/02/24 06:00 10/02/24 06:00 10/02/24 06:00 10/02/24 06:00 10/02/24 06:00 10/02/24 06:00 10/02/24 06:00 FiO2 21 09/23/24 22:06 Oxygen Flow Rate (L/min) 2 Oxygen Delivery Method Nasal Cannula Weight: 208 lb 5.389 oz Body Mass Index (BMI) 33.5 Intake & Output: Intake and Output for Last 24 Hours 09/30/24 10/01/24 10/02/24 23:59 23:59 23:59 Intake Total 1999 / 1999 1620 / 1620 240 / 240 Output Total 1150 / 1150 650 / 650 Balance 850 / 850 970 / 970 240 / 240 Lab / Micro Data 10/03/24 07:09 10/01/24 07:05 Micro: Microbiology 10/02/24 08:57 Stool Stool Occult Blood (ALIX) - Final Occult Blood Positive Physical Exam Const alert, oriented x3 and no apparent distress Constitutional Narrative: Sitting in the recliner at the bedside reading a book and appears comfortable. General Appearance: cooperative Resp clear to auscultation bilaterally Resp Narrative: Diminished breath sounds throughout but no crackles or wheezes. She is not tachypneic. Dyspnea on exertion has improved since admission with regular exercise. Cardio regular rate, regular rhythm and no gallops GI normal to inspection, nondistended, normoactive bowel sounds, soft to palpation and non-tender Extremity no calf tenderness Skin Skin Narrative: The right hip incision is intact with Steri-Strips present. There is a small amount of dried blood under the Steri-Strips in the mid incision but there is no purulent discharge. There is no annabelle-incisional erythema and no increased warmth to touch. She does still have some swelling around the incision. Neuro CN's II-XII intact bilaterally and no focal motor deficits Assessment & Plan Assessment/Plan (1) Debility: (2) Status post total hip replacement, right: (3) Acute blood loss as cause of postoperative anemia: (4) Asthma-COPD overlap syndrome: (5) Exercise hypoxemia: (6) Rheumatoid arthritis: QUALIFIERS: Rheumatoid arthritis location: unspecified site R heumatoid factor presence: unspecified presence Qualified Code(s): M06.9 - Rheumatoid arthritis, unspecified (7) Osteoarthritis: QUALIFIERS: Osteoarthritis location: multiple joints O steoarthritis type: unspecified Qualified Code(s): M15.9 - Polyosteoarthritis, unspecified (8) Hypertension: QUALIFIERS: Hypertension type: primary hypertension Qualified Code(s): I10 - Essential (primary) hypertension (9) Hypothyroidism: QUALIFIERS: Hypothyroidism type: unspecified Qualified Code(s): E 03.9 - Hypothyroidism, unspecified (10) Gastroesophageal reflux disease: QUALIFIERS: Esophagitis presence: without esophagitis Qualified Code(s): K21.9 - Gastro-esophageal reflux disease without esophagitis (11) Lung nodule: (12) Nonobstructive atherosclerosis of coronary artery: (13) DVT (deep venous thrombosis): PLAN: remote. Not present during this admission to the hospital (14) Osteoporosis: QUALIFIERS: Osteoporosis type: age-related Presence of current pathological fracture: without current pathological fracture Qualified Code(s): M81.0 - Age-related osteoporosis without current pathological fracture (15) Squamous carcinoma: (16) Diverticulosis: (17) Restless leg: (18) Sleep related hypoxia: (19) Heme + stool: PLAN: Plan 1. Continue therapy 2. Recheck a CBC and a PT/PTT in the AM. 3. Continue Protonix 40 mg daily 4. Start Cymbalta on Sunday a.m. and discontinue the sertraline. 5. Ask her about last colonoscopy. May need further evaluation for anemia and heme + stool following DC from rehab. Will hold off on restarting a NSAID. Charges/Coding Visit Charges Inpatient E&M: 27296 Subs Hosp L1
[2024-10-02 17:02] VITALS: BP 103/64; PULSE 94; RESP 17; TEMP 36.3; O2SAT 97
[2024-10-02 18:36] VITALS: BP 103/64; PULSE 94; RESP 17; TEMP 36.3; O2SAT 97
[2024-10-02 20:30] VITALS: BP 118/65; PULSE 87; RESP 12; TEMP 36.7; O2SAT 99
[2024-10-03 06:00] VITALS: BP 118/63; PULSE 68; RESP 16; TEMP 36.7; O2SAT 98
[2024-10-03 07:42] LABS: Hematocrit 31.3 % (37-47); Hemoglobin 10.2 g/dL (12.0-15.0); Mean Corp Hgb Conc 32.6 g/dL (32-36); Mean Corpuscular Volume 87.7 fL (81-99); Mean Platelet Vol. 9.1 fl (6.2-12.0); Platelet Count 382 K/mm3 (150-450); RBC Distribution Width CV 14.2 % (11.6-14.6); RBC Distribution Width SD 45.5 fl (35.1-43.9); Red Blood Count 3.57 M/mm3 (4.2-5.4); White Blood Count 5.9 K/mm3 (4.4-11.0)
[2024-10-03] MEDS: Cholecalciferol (Vit D3) 125 MCG CAPSULE (5,000 UNITS) 250 MCG PO (08:18)
[2024-10-03] MEDS: Aspirin E.C. 81 MG Tablet PO (08:19)
[2024-10-03] MEDS: Senna/Docusate Sodium 1 Tablet 2 TABLET PO ×2 (08:19→20:10)
[2024-10-03 08:20] LABS: Prothrombin Time (Protime)PT. 17.2 SECONDS (11.7-14.9)
[2024-10-03] MEDS: Umeclidinium Bromide Inhaler 1 PUFF INHALATION (08:20)
[2024-10-03] MEDS: Fluticasone/Salmeterol 232-14 Inhaler 1 PUFF INHALATION ×2 (08:20→20:10)
[2024-10-03 08:22] LABS: Partial Thromboplast Time 41.5 Seconds (24.1-36.2)
[2024-10-03 08:25] VITALS: BP 110/73; PULSE 75
[2024-10-03 08:30] VITALS: O2SAT 98
[2024-10-03] MEDS: Silver Sulfadiazine 1% Crm 50 gm Bottle 1 APPLIC TOPICAL ×2 (13:13→20:11)
--- NOTE | 2024-10-03 15:15 | PCM.DC ---
Discharge Instructions DC O2, CPAP, BIPAP needs Home O2 Discharge instructions: Yes Type of respiratory needs?: Oxygen Oxygen frequency: Continuous Continuous oxygen liters per minute: 2 LPM Dressing / Incision Discharge Activity: May Not Drive and Use Walker Weight Bearing Status: Full weight bearing Keep extremity elevated above heart level: Right Leg Dressing / Incision Call your doctor if your incision/area has: Continuous Slow Oozing, Sudden Increased Bleeding, Increased Pain/ Swelling, Increased Redness, Foul Smelling Discharge and Swelling at the incision site Call your doctor if you observe: Fever of 101 or Higher, Shortness of breath, Dizziness, Fainting spells, Swelling in the ankles, Chest pain, Increased palpitations (irregular heartbeat), Calf discomfort and Uncontrolled pain Suture Line Care: Avoid Pulling/Pushing and Avoid Pinching/Bending Remove Dressing in: leave until fall off Cleanse incision/area with: Soap & Water Follow Up Care When: appts are listed later in this document. Test Results: Test results from this visit will be discussed in further detail at your follow-up appointment, if applicable. Pending Tests Upon Discharge: none Discharge Plan Admission Admit Date/Time: 09/23/24 15:11 Primary Reason for Your Visit: debility due to R THR Attending Provider: Melba Overton Primary Care Provider: Blade Tan Instructions Patient Instructions: Caring for Your Incision Additional Instructions / Restrictions: 1. No flexing of the hip greater than 90 degrees 2. Do not cross your legs 3. No twisting 4. I can only give you enough pain medication for 1 week because I am not your PCP or pain management doctor. My my rule....its the law. You have an appt with Dr. Mcginnis from pain management next week and he can give you a new prescription. 5. the steri strips will fall odd by themselves......don't pull them off. you can leave the incision open to air. If there is redness around the incision or there is any pus from the wound or bleeding call Dr. Yates. Also call if you are having fevers, night sweats or shaking chills. 6. I recommend you get an appt to be seen at the [facility] in [place]..........this is a rheumatology practise and it is different than the [facility]. It is located at [address] [facility] in [place]. The phone number is [phone]. It is my hope that they can get you on some medication to prevent further joint deformity. 7. We have discontinued Sertraline and placed you on a different antidepressant called Duloxetine. This medication in addition to treating depression is also used to help with management of chronic pain. You will take this once a day in the AM. 8. You are anemic. You were not anemic prior to surgery so I suspect the blood count dropped due to blood loss during surgery. You have blood in your stool. Medications like Naprosyn, Motrin, Advil, Alleve can all cause ulcers in your stomach . Do NOT take any of these medications until you discuss with Dr. Tan. 9. You will take a medication called Xarelto for 3 days after you leave rehab. Then you will start taking 1 baby aspirin TWICE a day through 10/23/24........this is to help prevent blood clots after surgery. On 10/24/24 you will go back to taking 1 baby aspirin daily. 10. If you have any questions after you leave rehab please do not hesitate to call me. OFFICE: [phone] CELL: [phone] NURSES STATION ON REHAB: [phone] Discharge Orders/Prescriptions Prescriptions: New amitriptyline 10 mg Tablet 20 mg PO 1999 Qty: 30 0RF duloxetine 60 mg capsule,delayed release(DR/EC) 60 mg PO DAILY Qty: 30 0RF Continued Trelegy Ellipta 200-62.5-25 mcg blister with device 1 inh inhalation DAILY Qty: 3 3RF albuterol sulfate [Ventolin HFA] 90 mcg/actuation HFA aerosol inhaler 2 puff inhalation Q4H PRN PRN (Reason: Shortness of breath, wheezing) Qty: 3 3RF alendronate 70 mg tablet 70 mg PO QWEEK levothyroxine 25 MCG tablet 75 mcg PO DAILY pantoprazole 40 MG tablet 40 mg PO DAILY irbesartan 300 mg tablet 300 mg PO DAILY multivitamin [Daily Multi-Vitamin] Tablet 1 tab PO DAILY K2-D3 Max 125 mcg (5,000 unit)-180 mcg capsule 1 cap PO DAILY Hair,Skin and Nails Tablet 1 tab PO DAILY ascorbic acid (vitamin C) [Vitamin C] 1,000 mg tablet 1 g PO 1200 folic acid 1 mg Tablet 1 mg PO DAILY aspirin 81 mg tablet 81 mg PO BID Qty: 1 0RF Rx Instructions: You will take 1 aspirin daily through 10/08/24. On 10/09 you will start 1 twice a day through 10/23 and then you will decrease to once a day again. Xarelto 10 mg Tablet 10 mg PO DAILY@0600 Qty: 3 0RF Rx Instructions: Take 1 daily until gone and then start aspirin 81 mg twice a day through 10/23 and then decrease to 1 aspirin daily Changed acetaminophen 500 mg Tablet 1,000 mg PO Q8 PRN (Reason: pain) Qty: 180 0RF ferrous sulfate [FeroSul] 325 mg (65 mg iron) Tablet 325 mg PO 1200 Qty: 30 0RF Rx Instructions: Take this with vitamin C (ascorbic acid) oxycodone 5 mg Tablet 5 mg PO Q4H PRN PRN (Reason: pain) 7 Days Qty: 35 0RF Discontinued aspirin 81 mg tablet,delayed release (DR/EC) 81 mg PO QDAY naproxen sodium [Aleve] 220 MG tablet 440 mg PO DAILY Patient Comments: PAIN sertraline 100 mg tablet 200 mg PO DAILY Patient Comments: TAKE 2 TABLETS DAILY aspirin 81 mg tablet 81 mg PO DAILY No Action (DME) OXYGEN - Supplemental ([facility] INFORMATIONAL USE ONLY) Gas See Rx Instructions .ROUTE Patient Comments: 1.5LPM CONTINUOUS Rx Instructions: As directed Referrals / Follow Up: [facility] [Outside] (call and make appointment ) Chidi Mcginnis MD [Med Staff - Active Staff] - 10/08/24 3:15 pm Blade Tan DO [Primary Care Provider] - 10/10/24 1:00 pm Beckie Chester PA [Med Staff - Adv Practice Prof] - 10/07/24 3:00 pm Disposition Disposition (needs filled in before D/C Order can be placed): Home Health Service
--- NOTE | 2024-10-03 17:05 | DS.PCM_ITS ---
Providers Date of Admission: 09/23/24 Date of Discharge: 10/05/24 Primary Care Physician: Dr. Blade Tan DO Reason For Visit: RT BRENDON Diagnosis Discharge Diagnosis (1) Debility: Status: Acute Code(s): R53.81 - Other malaise (2) Status post total hip replacement, right: Status: Acute Code(s): Z96.641 - Presence of right artificial hip joint (3) Acute blood loss as cause of postoperative anemia: Status: Acute Code(s): D62 - Acute posthemorrhagic anemia Plan: HGB was 10.4 post op and dropped to 9.3 on 10/01/24. Hemoccult stool was +. HGB on 10/03 is 10.2. She is on Protonix chronically for GERD. she was not anemic prior to surgery. (4) Asthma-COPD overlap syndrome: Status: Chronic Code(s): J44.9 - Chronic obstructive pulmonary disease, unspecified Plan: Continue to follow with Glendy Ugarte/Ajay Tse MD (5) Exercise hypoxemia: Status: Chronic Code(s): R09.02 - Hypoxemia Plan: Abnormal 6 minute walk and required oxygen supplementation on the 3rd minute. We did an overnight trending pulse ox and she also desaturates when sleeping. she is being discharged on O2 at 2 LPM with exertion and with sleep. She prefers to wear continuously. (6) Rheumatoid arthritis: Status: Chronic Code(s): M06.9 - Rheumatoid arthritis, unspecified Qualifiers: Rheumatoid arthritis location: unspecified site Rheumatoid factor presence: unspecified presence Qualified Code(s): M06.9 - Rheumatoid arthritis, unspecified Plan: Has not been on treatment for many years. Not currently seeing a picker and sorter load and unload. Numerous joint deformities and rheumatoid nodules. ESR is 45 and CRP is 49.1. I recommend she follow up at the [facility] on [facility] in [facility]. (7) Osteoarthritis: Status: Chronic Code(s): M19.90 - Unspecified osteoarthritis, unspecified site Qualifiers: Osteoarthritis location: multiple joints Osteoarthritis type: u nspecified Qualified Code(s): M15.9 - Polyosteoarthritis, unspecified (8) Hypertension: Status: Chronic Code(s): I10 - Essential (primary) hypertension Qualifiers: Hypertension type: primary hypertension Qualified Code(s): I10 - Essential (primary) hypertension Plan: Well controlled. (9) Hypothyroidism: Status: Chronic Code(s): E03.9 - Hypothyroidism, unspecified Qualifiers: Hypothyroidism type: unspecified Qualified Code(s): E03.9 - Hypothyroidism, unspecified (10) Gastroesophageal reflux disease: Status: Chronic Code(s): K21.9 - Gastro-esophageal reflux disease without esophagitis Qualifiers: Esophagitis presence: without esophagitis Qualified Code(s): K21.9 - Gastro-esophageal reflux disease without esophagitis (11) Lung nodule: Status: Chronic Code(s): R91.1 - Solitary pulmonary nodule Plan: Has another CT scheduled soon for surveillance. CT chest in April 2024 showed an irregular nodular density in the posterior aspect of the lingular segment of the left upper lobe measuring 1.4 cm which was actually improved from a previous study. (12) Nonobstructive atherosclerosis of coronary artery: Status: Chronic Code(s): I25.10 - Atherosclerotic heart disease of [place] coronary artery without angina pectoris (13) DVT (deep venous thrombosis): Status: Inactive Code(s): I82.409 - Acute embolism and thrombosis of unspecified deep veins of unspecified lower extremity Plan: Remote. Not present during this admission to the hospital. She was placed on 2 weeks of Xarelto 10 mg by ortho and she will transition to ASA 81 mg BID for and additional 2 weeks for a total of 4 weeks post op pharmacologic DVT prophylaxis. (14) Osteoporosis: Status: Chronic Code(s): M81.0 - Age-related osteoporosis without current pathological fracture Qualifiers: Osteoporosis type: age-related Presence of current pathological fracture: without current pathological fracture Qualified Code(s): M81.0 - Age- related osteoporosis without current pathological fracture (15) Squamous carcinoma: Status: Inactive (16) Diverticulosis: Status: Chronic Code(s): K57.90 - Diverticulosis of intestine, part unspecified, without perforation or abscess without bleeding (17) Restless leg: Status: Chronic Code(s): G25.81 - Restless legs syndrome (18) Sleep related hypoxia: Status: Chronic Code(s): G47.34 - Idiopathic sleep related nonobstructive alveolar hypoventilation Plan: She will wear 2 LPM of nasal O2 when she is sleeping. (19) Heme + stool: Status: Acute Code(s): R19.5 - Other fecal abnormalities Plan: She was instructed to NOT us any NSAID's while on Xarelto or ASA twice a day. She will discuss restarting Naprosyn with Dr. Tan. (20) Chronic pain: Status: Chronic Code(s): G89.29 - Other chronic pain Qualifiers: Chronic pain type: chronic pain syndrome Qualified Code(s): G89.4 - Chronic pain syndrome Plan: Due to multiple joint deformities/rheumatoid arthritis. An appt was scheduled for her to follow up with Dr. Mcginnis post DC from rehab. (21) Depression: Status: Chronic Code(s): F32.A - Depression, unspecified Qualifiers: Depression Type: reactive depression Qualified Code(s): F32.9 - Major depressive disorder, single episode, unspecified Plan: She was started on sertraline during COVID when she was living alone and isolated. She denies feeling depressed at present. Her son and 2 grandchildren live with her currently. Sertraline was weaned down while on rehab and she was started on duloxetine 60 mg once daily to help with management of chronic pain as well as depression/anxiety. (22) Insomnia: Status: Chronic Code(s): G47.00 - Insomnia, unspecified Qualifiers: Insomnia type: unspecified Qualified Code(s): G47.00 - Insomnia, unspecified Plan: Failed Trazodone in the past. she was started on amitriptyline 20 mg nightly and she is sleeping well at the time of discharge. (23) Vitamin D deficiency: Status: Acute Code(s): E55.9 - Vitamin D deficiency, unspecified Plan 1. Discharged home on 10/05/2024 2. [facility] home health care for PT/OT/SW/RADFORD at discharge from rehab. 3. She has an appt with Dr. Yates scheduled and we scheduled her an appt with Dr. Mcginnis for chronic pain management. 4. I recommended she follow up at the [facility] on [facility] in [place] to discuss treatment of rheumatoid arthritis to prevent further development of joint deformity and rheumatoid nodules. 5. She was instructed not to resume Naprosyn until she is off Xarelto and is back on aspirin 81 mg once daily. Hemoccult stool was positive during her admission to rehab. She will discuss this and need for additional workup with Dr. Tan. 6. Sertraline was discontinued and she will start duloxetine 60 mg daily to treat anxiety/depression/chronic pain. 7. Continue amitriptyline 20 mg at bedtime for chronic insomnia 8. She will continue to follow-up with Linda Ugarte for COPD/chronic respiratory insufficiency. 9. She received cholecalciferol while in the hospital.....she was taking a supplement called K2-D3 MAX 125mcg at admission to rehab.........may need to change the suplement if the vitamin D level is still low on recheck going forward. I do not think she was consistently taking this supplement and I reinforced with her the importance of taking a vitamin D supplement, belle when you have osteoporosis already. Medications at Discharge Home Medications levothyroxine 25 mcg tablet 75 mcg PO DAILY thyroid 04/11/17 pantoprazole 40 mg tablet,delayed release 40 mg PO DAILY reflux 04/23/19 irbesartan 300 mg tablet 300 mg PO DAILY blood pressure 12/30/22 albuterol sulfate 90 mcg/actuation aerosol inhaler (Ventolin HFA) 2 puff inhalation Q4H PRN PRN Shortness of breath, wheezing ##3 11/29/23 fluticasone fur. 200 mcg-umeclid 62.5 mcg-vilant 25 mcg inhalat.powder (Trelegy Ellipta) 1 inh inhalation DAILY SOB #3 ea 11/29/23 alendronate 70 mg tablet 70 mg PO QWEEK osteoporosis 05/01/24 multivitamin (Daily Multi-Vitamin tablet) 1 tab PO DAILY supplement 09/01/24 multivitamin with minerals (Hair,Skin and Nails tablet) 1 tab PO DAILY supplement 09/01/24 vitamin D3 125 mcg (5,000 unit)-vitamin K2 180 mcg capsule (K2-D3 Max) 1 cap PO DAILY supplement 09/01/24 ascorbic acid (vitamin C) 1,000 mg tablet (Vitamin C) 1 g PO 1200 supplement 09/23/24 folic acid 1 mg tablet 1 mg PO DAILY supplement 09/23/24 OXYGEN - Supplemental ([facility] INFORMATIONAL USE ONLY) 10/03/24 acetaminophen 500 mg tablet 1,000 mg (2 x 500 mg) PO Q8 PRN pain #180 tabs 10/03/24 amitriptyline 10 mg tablet 20 mg (2 x 10 mg) PO 2000 #30 tabs 10/03/24 aspirin 81 mg tablet 81 mg PO BID dvt prophylaxes #1 TAB 10/03/24 duloxetine 60 mg capsule,delayed release 60 mg PO DAILY #30 caps 10/03/24 ferrous sulfate 325 mg (65 mg iron) tablet (FeroSul) 325 mg PO 1200 supplement #30 tabs 10/03/24 oxycodone 5 mg tablet 5 mg PO Q4H PRN PRN pain 1 week #35 tabs 10/03/24 rivaroxaban 10 mg tablet (Xarelto) 10 mg PO DAILY@0600 dvt prophylaxes #3 tabs 10/03/24 Hospital Course Operations total hip replacement (09/22/[address] Misael Yates) and - Procedures None Summary of Care Provided Minutes Spent on Discharge: 35 Hospital Course: DONALDO ZHAO, is a 69 YO F with a hx of tobacco dependence (she quit recently so that she could have hip surgery), RA ( no tx or follow up with rheumatology for many years and with multiple joint deformities and rheumatoid nodules), OA, obesity, COPD, chronic respiratory insufficiency with hypoxemia with ambulation requiring oxygen supplementation, anxiety/depression, Hearing loss, HTN, remote hx of VTE, history of anal cell squamous carcinoma, osteoporosis, nonobstructive coronary artery disease on cardiac catheterization in 2020, HH/GERD, diverticulosis, vitamin D deficiency, poor dental hygiene, marijuana use and hypothyroidism who underwent an anterior R THR on 09/22/[address] Yates. There were no significant post op complications (other than acute blood loss anemia) and she was transferred to the acute inpt rehab unit at [facility] on 09/23/24 for 3 hours of therapy to restore function/independence at or near her level prior to the recent surgery. Vitamin D level was checked on rehab and it was low.......she admits to missing some of her medications sometimes. I suspect one of the medications she does not take regularly is the Vitamin D supplement. She also sometimes forgets Trelegy. An overnight trending pulse ox was done on rehab due to complaint of RLS. She was not always wearing O2 at night. She wears it with exertion. The test revealed that 89.33% of the time she was monitored her pulse ox was 90 or above. The remainder of the time her pulse ox ranged from 78% to 89%. There were no desaturation events greater than 60 seconds. She was ordered 2 LPM of oxygen while sleeping. She had no RLS complaints on rehab. She has chronic pain and has been taking Naprosyn primarily to help with pain control. She also uses marijuana....no more than once a day. I reviewed her OARRS report and she is not getting regular prescriptions for narcotics. Since March of 2024 she has had a total of 73 tabs of [place] 5/325 prescribed. An appt was made for her to follow up with Dr. Mcginnis for chronic pain management. She had been taking Sertraline 200 mg a day for depression that started during the COVID pandemic. She was transitioned to Duloxetine while on rehab to treat anxiety/depression and chronic pain. she has had chronic insomnia for many years........has a hard time getting comfortable and has a lot of pain. She was started on amitriptyline 20 mg nightly and this has been very effective. She is sleeping through the night at discharge from rehab. Hemoglobin is stable at 10.4 at the time of discharge from rehab. A Hemoccult stool was checked and was positive. Her last colonoscopy was with Dr. Ahumada 1 to 2 years ago and everything was fine. She was instructed not to resume Naprosyn until she is off Xarelto and aspirin twice daily. Hemoglobin prior to surgery was 12.4. She will discuss the heme positive stool with Dr. Tan to see if any additional follow up is recommended. I recommended she follow up with rheumatology and suggested she be seen at the [facility] on [facility] in [place]. Hopefully reinstituting treatment will prevent any further joint destruction/rheumatoid nodules. Sed rate was 42 and the CRP was 49 while she was on rehab. Donaldo did very well on rehab and was discharged on 10/05/2024 to home. Her son and 2 grandchildren live with her and her son will help with things as needed. She will receive home health care from [facility] home health care for PT/OT/SN/RADFORD. She has follow-up appointment scheduled with Dr. Tan, Dr. Yates and Dr. Mcginnis. She will continue to follow-up with Glendy Ugarte from pulmonary. Physical Exam Const alert, oriented x3 and no apparent distress Constitutional Narrative: Making good eye contact, appropriate. Sitting in the recliner at the bedside. She is calm and focused. Does not appear to be in any significant pain at the present time. General Appearance: cooperative and comfortable; Negative for disheveled HEENT moist oral mucous membranes HEENT Narrative: Has some hearing loss and she does not have hearing aids. I have to repeat myself from time to time. Many missing teeth. Teeth and Gingiva: poor dentition, teeth discoloration and other Other Details: Many missing teeth. Throat: uvula midline Eyes PERRL, EOMs intact bilaterally, conjunctivae normal and no scleral icterus Eyes Narrative: No discharge from the eyes and no mattering of the eyelashes. Neck no lymphadenopathy, supple, no JVD and no carotid bruits General: trachea midline Chest Chest: symmetrical chest wall rise Resp normal respiratory effort, no use of accessory muscles and clear to auscultation bilaterally Resp Narrative: Not tachypneic and no conversational dyspnea. Breath sounds are diminished throughout. Effort and Inspection: able to speak in complete sentences Cardio regular rate, regular rhythm, S1 normal heart sound, S2 normal heart sound, no murmurs, no rub and no gallops Cardio Narrative: No ectopy GI normal to inspection, nondistended, normoactive bowel sounds, soft to palpation and non-tender GI Narrative: No guarding with palpation. no CVA tenderness Extremity no clubbing, cyanosis or edema Extremity Narrative: Multiple joint deformities due to RA, untreated. Decreased ROM multiple joints. NO reddened, warm joints. DP pulse on the left is 2+ and it is 1+ on the R. PT is 2+ on the R and 1+ on the Left. No ankle edema. Skin Skin Narrative: She has a open wound on her back. It is small and there is no surrounding erythema. There is no purulent DC. She has no pain to palpation around the opening. No swelling. Rashes: no rashes Wound Narrative: The hip incision is intact with Steri-Strips present. There is no annabelle- incisional erythema and no purulent discharge from the incision. There is some annabelle-incisional swelling yet. No significant increase in warmth to touch around the incision. She tells me the pain is adequately controlled. Neuro oriented x3, CN's II-XII intact bilaterally and no focal motor deficits Psych affect normal Psych Narrative: Appropriate, making good eye contact. Able to stay on topic and focus. No flight of ideas. Does not appear anxious or depressed. Conversant and relating well to staff and myself. Weight / BMI Weight Weight: 208 lb 5.389 oz Body Mass Index (BMI) 33.5 ABG / Lab / Microbiology Data 10/03/24 07:09 10/01/24 07:05 Laboratory: Laboratory Results - last 24 hr 10/03/24 07:09: WBC 5.9, RBC 3.57 L, Hgb 10.2 L, Hct 31.3 L, MCV 87.7, MCH 28.6, MCHC 32.6, RDW Std Deviation 45.5 H, RDW Coeff of Kanika 14.2, Plt Count 382, MPV 9.1, PT 17.2 H, INR 1.4, APTT 41.5 H Microbiology: Microbiology 10/02/24 08:57 Stool Stool Occult Blood (ALIX) - Final Occult Blood Positive D/C Instructions Weight Bearing Status: Full weight bearing Keep extremity elevated above heart level: Right Leg Call your doctor if your incision/area has: Continuous Slow Oozing, Sudden Increased Bleeding, Increased Pain/ Swelling, Increased Redness, Foul Smelling Discharge and Swelling at the incision site Call your doctor if you observe: Fever of 101 or Higher, Shortness of breath, Dizziness, Fainting spells, Swelling in the ankles, Chest pain, Increased palpitations (irregular heartbeat), Calf discomfort and Uncontrolled pain Suture Line Care: Avoid Pulling/Pushing and Avoid Pinching/Bending Cleanse incision/area with: Soap & Water DC O2, CPAP, BIPAP Needs Home O2 Discharge instructions: Yes Type of respiratory needs?: Oxygen Oxygen frequency: Continuous Continuous oxygen liters per minute: 2 LPM DC home with Oxygen: Yes Home O2 MD Review: I have reviewed the oxygen testing, and the patient qualifies for home oxygen equipment and portability. The patient is mobile in the home and the community. Pending Tests Upon Discharge: none When: appts are listed later in this document. Meaningful Use Info Meaningful Use Meaningful Use Diagnoses (Choose all that apply): None applicable Discharge Plan Admission Admit Date/Time: 09/23/24 15:11 Primary Reason for Your Visit: debility due to R THR Attending Provider: Melba Overton Primary Care Provider: Blade Tan Instructions Patient Instructions: Caring for Your Incision Additional Instructions / Restrictions: 1. No flexing of the hip greater than 90 degrees 2. Do not cross your legs 3. No twisting 4. I can only give you enough pain medication for 1 week because I am not your PCP or pain management doctor. My my rule....its the law. You have an appt with Dr. Mcginnis from pain management next week and he can give you a new prescription. 5. the steri strips will fall odd by themselves......don't pull them off. you can leave the incision open to air. If there is redness around the incision or there is any pus from the wound or bleeding call Dr. Yates. Also call if you are having fevers, night sweats or shaking chills. 6. I recommend you get an appt to be seen at the [facility] in [place]..........this is a rheumatology practise and it is different than the [facility]. It is located at [address] in [place]. The phone number is [phone]. It is my hope that they can get you on some medication to prevent further joint deformity. 7. We have discontinued Sertraline and placed you on a different antidepressant called Duloxetine. This medication in addition to treating depression is also used to help with management of chronic pain. You will take this once a day in the AM. 8. You are anemic. You were not anemic prior to surgery so I suspect the blood count dropped due to blood loss during surgery. You have blood in your stool. Medications like Naprosyn, Motrin, Advil, Alleve can all cause ulcers in your stomach . Do NOT take any of these medications until you discuss with Dr. Tan. 9. You will take a medication called Xarelto for 3 days after you leave rehab. Then you will start taking 1 baby aspirin TWICE a day through 10/23/24........this is to help prevent blood clots after surgery. On 10/24/24 you will go back to taking 1 baby aspirin daily. 10. If you have any questions after you leave rehab please do not hesitate to call me. OFFICE: [phone] CELL: [phone] NURSES STATION ON REHAB: [phone] Discharge Orders/Prescriptions Prescriptions: New amitriptyline 10 mg Tablet 20 mg PO 1999 Qty: 30 0RF duloxetine 60 mg capsule,delayed release(DR/EC) 60 mg PO DAILY Qty: 30 0RF Continued Trelegy Ellipta 200-62.5-25 mcg blister with device 1 inh inhalation DAILY Qty: 3 3RF albuterol sulfate [Ventolin HFA] 90 mcg/actuation HFA aerosol inhaler 2 puff inhalation Q4H PRN PRN (Reason: Shortness of breath, wheezing) Qty: 3 3RF alendronate 70 mg tablet 70 mg PO QWEEK levothyroxine 25 MCG tablet 75 mcg PO DAILY pantoprazole 40 MG tablet 40 mg PO DAILY irbesartan 300 mg tablet 300 mg PO DAILY multivitamin [Daily Multi-Vitamin] Tablet 1 tab PO DAILY K2-D3 Max 125 mcg (5,000 unit)-180 mcg capsule 1 cap PO DAILY Hair,Skin and Nails Tablet 1 tab PO DAILY ascorbic acid (vitamin C) [Vitamin C] 1,000 mg tablet 1 g PO 1200 folic acid 1 mg Tablet 1 mg PO DAILY aspirin 81 mg tablet 81 mg PO BID Qty: 1 0RF Rx Instructions: You will take 1 aspirin daily through 10/08/24. On 10/09 you will start 1 twice a day through 10/23 and then you will decrease to once a day again. Xarelto 10 mg Tablet 10 mg PO DAILY@0600 Qty: 3 0RF Rx Instructions: Take 1 daily until gone and then start aspirin 81 mg twice a day through 10/23 and then decrease to 1 aspirin daily Changed acetaminophen 500 mg Tablet 1,000 mg PO Q8 PRN (Reason: pain) Qty: 180 0RF ferrous sulfate [FeroSul] 325 mg (65 mg iron) Tablet 325 mg PO 1200 Qty: 30 0RF Rx Instructions: Take this with vitamin C (ascorbic acid) oxycodone 5 mg Tablet 5 mg PO Q4H PRN PRN (Reason: pain) 7 Days Qty: 35 0RF Discontinued aspirin 81 mg tablet,delayed release (DR/EC) 81 mg PO QDAY naproxen sodium [Aleve] 220 MG tablet 440 mg PO DAILY Patient Comments: PAIN sertraline 100 mg tablet 200 mg PO DAILY Patient Comments: TAKE 2 TABLETS DAILY aspirin 81 mg tablet 81 mg PO DAILY No Action (DME) OXYGEN - Supplemental ([facility] INFORMATIONAL USE ONLY) Gas See Rx Instructions .ROUTE Patient Comments: 1.5LPM CONTINUOUS Rx Instructions: As directed Referrals / Follow Up: [facility] [Outside] (call and make appointment ) Chidi Mcginnis MD [Med Staff - Active Staff] - 10/08/24 3:15 pm Blade Tan DO [Primary Care Provider] - 10/10/24 1:00 pm Beckie Chester PA [Med Staff - Adv Practice Prof] - 10/07/24 3:00 pm Disposition Disposition (needs filled in before D/C Order can be placed): Home Health Service Charges/Coding Visit Charges Inpatient E&M: 31606 Disch Hosp >30min
[2024-10-03 17:52] VITALS: BP 116/58; PULSE 72; RESP 17; TEMP 35.8; O2SAT 96
[2024-10-03 22:00] VITALS: RESP 16
[2024-10-04 06:00] VITALS: BP 121/80; PULSE 84; RESP 16; TEMP 36.4; O2SAT 96
[2024-10-04] MEDS: Aspirin E.C. 81 MG Tablet PO (08:37)
[2024-10-04] MEDS: Senna/Docusate Sodium 1 Tablet 2 TABLET PO ×2 (08:38→20:27)
[2024-10-04] MEDS: Cholecalciferol (Vit D3) 125 MCG CAPSULE (5,000 UNITS) 250 MCG PO (08:38)
[2024-10-04 08:58] VITALS: BP 118/73; PULSE 80
[2024-10-04] MEDS: Silver Sulfadiazine 1% Crm 50 gm Bottle 1 APPLIC TOPICAL ×2 (11:18→20:27)
[2024-10-04] MEDS: Umeclidinium Bromide Inhaler 1 PUFF INHALATION (11:18)
[2024-10-04] MEDS: Fluticasone/Salmeterol 232-14 Inhaler 1 PUFF INHALATION ×2 (11:19→20:27)
[2024-10-04 17:36] VITALS: BP 102/60; PULSE 60; RESP 16; TEMP 36.4; O2SAT 95
[2024-10-05 00:05] VITALS: RESP 15; O2SAT 96
[2024-10-05 06:42] VITALS: BP 139/77; PULSE 75; RESP 16; TEMP 36.6; O2SAT 98
[2024-10-05 07:46] VITALS: O2SAT 96
[2024-10-05] MEDS: Fluticasone/Salmeterol 232-14 Inhaler 1 PUFF INHALATION (10:32)
[2024-10-05] MEDS: Umeclidinium Bromide Inhaler 1 PUFF INHALATION (10:32)
[2024-10-05] MEDS: Cholecalciferol (Vit D3) 125 MCG CAPSULE (5,000 UNITS) 250 MCG PO (10:32)
[2024-10-05] MEDS: Aspirin E.C. 81 MG Tablet PO (10:33)
[2024-10-05] MEDS: Silver Sulfadiazine 1% Crm 50 gm Bottle 1 APPLIC TOPICAL (11:47)
--- NOTE | 2024-10-05 13:15 | NURSING ---
Patient given dc instruct and verbalized understanding.
== END 2024-10-05 13:15 | disposition home health service (06) | DRG 470 ==
PROVIDERS: Admitting Provider Internal Medicine; Referring Provider Internal Medicine; Visit Provider Internal Medicine
DX: Z47.1 Aftercare following joint replacement surgery (principal); D62 Acute posthemorrhagic anemia; J96.11 Chronic respiratory failure with hypoxia; G47.34 Idiopathic sleep related nonobstructive alveolar hypoventilation; Z99.81 Dependence on supplemental oxygen; J44.89 Other specified chronic obstructive pulmonary disease; M06.9 Rheumatoid arthritis, unspecified; E03.9 Hypothyroidism, unspecified; I10 Essential (primary) hypertension; F32.9 Major depressive disorder, single episode, unspecified; G25.81 Restless legs syndrome; M16.11 Unilateral primary osteoarthritis, right hip; M15.9 Polyosteoarthritis, unspecified; F12.90 Cannabis use, unspecified, uncomplicated; K21.9 Gastro-esophageal reflux disease without esophagitis; K57.90 Diverticulosis of intestine, part unspecified, without perforation or abscess without bleeding; I25.10 Atherosclerotic heart disease of native coronary artery without angina pectoris; E55.9 Vitamin D deficiency, unspecified; K59.00 Constipation, unspecified; Z79.1 Long term (current) use of non-steroidal anti-inflammatories (NSAID); Z86.718 Personal history of other venous thrombosis and embolism; G47.00 Insomnia, unspecified; N39.41 Urge incontinence; G89.4 Chronic pain syndrome; Z96.641 Presence of right artificial hip joint; Z87.891 Personal history of nicotine dependence; M81.0 Age-related osteoporosis without current pathological fracture; Z79.83 Long term (current) use of bisphosphonates; Z79.899 Other long term (current) drug therapy; Z79.82 Long term (current) use of aspirin; Z79.890 Hormone replacement therapy; Z79.51 Long term (current) use of inhaled steroids; R91.1 Solitary pulmonary nodule; Z85.048 Personal history of other malignant neoplasm of rectum, rectosigmoid junction, and anus
CPT/HCPCS: 36415; 73501; 73502; 76000; 80048; 80053; 81001; 82274; 82306; 82962; 83735; 84100; 85025; 85027; 85610; 85652; 85730; 86140; 87081; 94640; 94668; 94762; 97110; 97112; 97116; 97162; 97166; 97530; 97535; 97802; C1776; A4216; J2405; J3475

== ENCOUNTER → 2024-10-22 | Outpatient (CLI) | payer MEDICARE, BC, SELFPAY ==
[2024-10-22 17:16] LABS: Barbiturate Urine NEGATIVE (< 200 ng/mL); Benzodiazepine Urine NEGATIVE (< 200 ng/mL); PCP Urine NEGATIVE (< 25 ng/mL); THC Urine PRESUMPTIVE POSITIVE (< 50 ng/mL)
== END | disposition home or self-care (01) ==
LOC: LAB 15:29
PROVIDERS: Referring Provider Anesthesiology Pain Medicine; Visit Provider Anesthesiology Pain Medicine
DX: F11.20 Opioid dependence, uncomplicated (principal)
CPT/HCPCS: 80307

== ENCOUNTER → 2024-11-25 | Outpatient (CLI) | payer MEDICARE, BC, SELFPAY ==
--- NOTE | 2024-11-25 14:20 | CT_ITS ---
PROCEDURE: CHEST WITHOUT CONTRAST 11/25/2024 REASON FOR EXAM: NODULE IN SMOKER TECHNIQUE: Chest CT without contrast. Coronal and Sagittal reconstruction series were provided. One or more dose reduction techniques were used (e.g., Automated exposure control, adjustment of the mA and/or kV according to patient size, use of iterative reconstruction technique RADIATION DOSE SUMMARY: CTDlvol: 14.21 mGy DLP: 536.29 mGycm COMPARISON: Low-dose lung screen CT, 04/25/2024. FINDINGS: Lower neck:There is a 6 mm in diameter low-density nodule in the left thyroid lobe. There is no axillary lymphadenopathy. Mediastinum:There are multiple stable reactive mediastinal lymph nodes, index node, an AP window node measuring 1.3 x 1.0 cm (was 1.3 x 1.1 cm). Heart and Vasculature:The heart size is normal. There is no pericardial effusion. There is calcific vascular disease of the coronary arteries and thoracic aorta. Esophagus:Normal. Upper Abdomen:There is minimal calcific vascular disease of the visualized abdominal aorta. Chest wall:The visualized soft tissues of the chest wall are unremarkable. There are few, stable, reactive axillary lymph nodes bilaterally. Lungs, airways and pleura: There is severe upper lobe predominant centrilobular emphysema. There is a pleural-parenchymal scar in the inferior segment of the lingula. The apparent nodule seen in the lingula on the prior CT examination, is a portion of the scar and not as apparent on today's exam. There are no new pulmonary nodules or masses. There are no pleural effusions. CT/Chest without Contrast IMPRESSION: 1. Severe emphysema. 2. Stable pleural-parenchymal scar in the lingula. 3. There are no new pulmonary nodules. 4. Calcific vascular disease. 5. Other findings as noted, not significantly changed. Reading Location: [place] [address]
== END | disposition home or self-care (01) ==
LOC: CT 14:03
PROVIDERS: Referring Provider Nurse Practitioner Acute Care; Visit Provider Nurse Practitioner Acute Care
DX: R91.1 Solitary pulmonary nodule (principal)
CPT/HCPCS: 71250

== ENCOUNTER → 2024-12-22 | Outpatient (CLI) | payer MEDICARE, BC, SELFPAY ==
[2024-12-22 18:59] LABS: Barbiturate Urine NEGATIVE (< 200 ng/mL); Benzodiazepine Urine NEGATIVE (< 200 ng/mL); PCP Urine NEGATIVE (< 25 ng/mL); THC Urine PRESUMPTIVE POSITIVE (< 50 ng/mL)
== END | disposition home or self-care (01) ==
LOC: LAB 16:37
PROVIDERS: Referring Provider Anesthesiology Pain Medicine; Visit Provider Anesthesiology Pain Medicine
DX: F11.20 Opioid dependence, uncomplicated (principal)
CPT/HCPCS: 80307